=== PATIENT | female | born 1940 | race Caucasian/White ===

== ENCOUNTER 2017-03-23 14:54 | Inpatient (IN) | payer OTHER ==
[~2017-03-23] VITALS: Ht 152.4 cm; Wt 35.9 kg
[~2017-03-23 14:54] MED LIST: ALBUAER19 INH; AMT10 PO; AMT25 PO; ASCO500T16 PO; BACL20TA PO; CALC-20 PO; CHOLCAP5 PO; CYAN10005 PO; DENO60SO SQ; DOCU100C PO; FERR325T5 PO; FLUT0.15 NAE; MELO7.5T7 PO; MULT-506 PO; OXYC-57 PO; PHN/100 PO; PRED-301 PO; RANI150T2 PO; SENN8.6T94 PO; SIMV-151 PO; SPRIN/30 INH; SULF500T36 PO; [UNRECOGNIZED DRUG - CODE] PO; [UNRECOGNIZED DRUG - CODE] TOP; [UNRECOGNIZED DRUG - OTHER] OPB
--- NOTE | 2017-03-23 15:47 | DIAGNOSTIC IMAGING REPORT ---
SINGLE VIEW CHEST CLINICAL HISTORY: Weakness. FINDINGS: An AP, portable, upright chest radiograph is compared to study dated 07/29/2016. The examination is degraded by portable technique and patient rotation. The heart is top normal for projection. There is atherosclerotic calcification of the thoracic aorta. The pulmonary vasculature is noncongested. There is atherosclerotic calcification of the thoracic aorta. Enlargement of the central pulmonary arteries suggests pulmonary artery hypertension. Advanced emphysema and chronic interstitial thickening is similar to previous. There is bibasilar scarring versus atelectasis. No airspace consolidation is identified typical for pneumonia. There is no large pleural effusion or pneumothorax. There is a 1.5 cm nodular density suggested just above the left hemidiaphragm. The skeletal structures are osteopenic. Mild degenerative change is seen throughout the thoracic spine. Arthritic change is also noted in the shoulders. IMPRESSION: 1. Advanced emphysema. 2. No airspace consolidation or pleural effusion is seen. 3. A 1.5 cm nodular density is suggested just above the left hemidiaphragm. Correlation with a chest CT is recommended to exclude underlying neoplasm. Electronically signed by: Zeb Noble M.D. 03/23/2017 3:45 PM Dictated Date/Time: 03/23/2017 3:37 PM
[2017-03-23 15:50] LABS: URINE APPEARANCE CLEAR (CLEAR); URINE BILIRUBIN NEG (NEG); URINE COLOR YELLOW; URINE NITRITE NEG (NEG); URINE PH 8.5 (4.5-7.5); UROBILINOGEN NEG (NEG)
[2017-03-23 15:56] LABS: MANUAL MICROSCOPIC REQUIRED? NO; REVIEW REQ? NO
[2017-03-23 15:58] LABS: CHLORIDE 95 mmol/L (98-107); POTASSIUM 3.3 mmol/L (3.5-5.1); SODIUM 134 mmol/L (136-145)
[2017-03-23 16:04] LABS: ALT/SGPT 14 U/L (12-78); AST/SGOT 24 U/L (15-37); BLOOD UREA NITROGEN 11 mg/dl (7-18); CALCIUM 8.4 mg/dl (8.5-10.1); CARBON DIOXIDE 32 mmol/L (21-32); CREATININE 0.73 mg/dl (0.60-1.20); GLUCOSE 97 mg/dl (70-99)
[2017-03-23 16:10] LABS: BENZODIAZEPINE, URINE NEG (NEG); COCAINE,URINE NEG (NEG); PHENCYCLIDINE, URINE NEG (NEG)
[2017-03-23 16:13] LABS: ALKALINE PHOSPHATASE 114 U/L (45-117)
[2017-03-23 16:15] LABS: BASO % 0.2 %; BASO ABS # 0.01 K/uL (0-0.2); COMPLETE YES; EOS % 0.3 %; HEMATOCRIT 25.4 % (37-47); IG% 0.3 %; LYMPH % 14.3 %; LYMPH ABS # 0.88 K/uL (1.2-3.4); MEAN CELL VOLUME 107.2 fL (80-100); MEAN CORPUSCULAR HGB CONC 35.4 g/dl (32-36); MEAN PLATELET VOLUME 8.1 fL (7.4-10.4); MONO % 8.4 %; NEUT % 76.5 %; PLATELET COUNT 124 K/uL (130-400); RED BLOOD COUNT 2.37 M/uL (4.2-5.4); WHITE BLOOD COUNT 6.17 K/uL (4.8-10.8)
[2017-03-23] MEDS ORDERED: VNTHFA/IN INH (16:21)
--- NOTE | 2017-03-23 17:09 | DIAGNOSTIC IMAGING REPORT ---
HEAD CT NONCONTRAST CT DOSE: HISTORY: Mental status change CHI from fall, AMS TECHNIQUE: Multiaxial CT images of the head were performed without the use of intravenous contrast. Comparison: 05/27/2013 Findings: The paranasal sinuses and mastoid air cells are clear. The calvarium and skull base are intact. The ventricles and sulci are within normal limits. There is no mass, hematoma, midline shift, or acute infarct. Impression: No acute intracranial abnormality. Electronically signed by: Dat Drew M.D. 03/23/2017 5:07 PM Dictated Date/Time: 03/23/2017 5:07 PM
--- NOTE | 2017-03-23 17:21 | DIAGNOSTIC IMAGING REPORT ---
CHEST CT WITHOUT CONTRAST CT DOSE: 1455.07 mGy.cm HISTORY: ABNORMAL CXR TECHNIQUE: Multiaxial CT images of the chest were performed without contrast. COMPARISON: Abdomen and pelvis CT 01/16/2016. Chest CT 03/23/2017. FINDINGS: The are secretions resulting in opacification of the right lower lobe bronchi. There patchy airspace opacities and interstitial thickening seen at the base of the right lower lobe. There is also groundglass density seen within the base of the left lower lobe which may be due to mild dependent change. Moderate emphysema. No pneumothorax. Respiratory motion artifact. No definite nodules seen within the base of the left lower lobe to correspond to the chest x-ray abnormality. No acute fractures within the visualized osseous structures. No pleural or pericardial effusions. The heart is normal in size. Mildly enlarged subcarinal and right peritracheal lymph nodes. Dominant peritracheal lymph node measures 12 mm in short axis diameter. IMPRESSION: 1. There are secretions resulting in opacification of the right lower lobe bronchi with patchy airspace opacities and interstitial thickening at the base of the right lower lobe. This likely represents a pneumonia, possibly secondary to aspiration. Follow-up is recommended to ensure resolution. In addition, bronchoscopy could be performed for further evaluation. These findings can also be seen in the setting of an obstructing mass. However, this is considered less likely. 2. Mild mediastinal lymphadenopathy which may be reactive. 3. Emphysema. 4. No nodules identified within the base of the left lung to correspond to the chest x-ray abnormality. Electronically signed by: Fadi Shell M.D. 03/23/2017 5:20 PM Dictated Date/Time: 03/23/2017 5:08 PM
--- NOTE | 2017-03-23 17:25 | DIAGNOSTIC IMAGING REPORT ---
CERVICAL SPINE CT CT DOSE: HISTORY: NECK PAIN S/P FALL TECHNIQUE: Multiaxial CT images of the cervical spine were performed and reformatted in the sagittal and coronal plane without the use of contrast. COMPARISON: None. FINDINGS: No fractures. There is 2 mm of anterolisthesis of C3 on C4. This is likely due to long-standing degenerative change. Moderate to severe disc space narrowing at C5-C6 and C6-C7. Prevertebral soft tissues and the C1-C2 interval are intact. No pneumothorax. IMPRESSION: No fractures within the cervical spine. Electronically signed by: Fadi Shell M.D. 03/23/2017 5:24 PM Dictated Date/Time: 03/23/2017 5:22 PM
--- NOTE | 2017-03-23 17:57 | DIAGNOSTIC IMAGING REPORT ---
CHEST 1 VW FRONT-NOT PORTABLE HISTORY: LAT VIEW PLEASE COMPARISON: Chest CT 03/23/2017. Chest x-ray 03/23/2017. FINDINGS: Single lateral view of the chest demonstrates patchy density at the right lung base with mild interstitial thickening. No pleural effusions. Mild superior endplate compression deformities at L1 and L2 are demonstrated to be old compared to a 2016 CT. IMPRESSION: Single lateral view demonstrates patchy density at the right lung base with interstitial thickening. This corresponds to the chest CT abnormality. This favors a pneumonia. Follow-up is recommended to ensure resolution. Old mild superior endplate compression deformity at L1 and L2. Electronically signed by: Fadi Shell M.D. 03/23/2017 5:55 PM Dictated Date/Time: 03/23/2017 5:52 PM
--- NOTE | 2017-03-23 18:03 | DIAGNOSTIC IMAGING REPORT ---
LUMBAR SPINE 5 VIEWS HISTORY: BACK PAIN S/P FALL COMPARISON: Abdomen and pelvis CT 01/16/2016. FINDINGS: Mild dextroscoliosis. Old mild superior endplate compression deformity at L1. There is also mild chronic compression at L3, L4 and L5. Severe degenerative disc disease seen at L2-L3, L3-L4, L4-L5. Large amount well-formed stool seen within the colon. The sacrum appears intact.. No subluxation. IMPRESSION: Old mild compression deformities and degenerative changes as described above. No acute fracture or subluxation within the lumbar spine. Electronically signed by: Fadi Shell M.D. 03/23/2017 6:01 PM Dictated Date/Time: 03/23/2017 5:58 PM
[2017-03-23] MEDS ORDERED: MoRPHine SULFATE 4 MG/ML 1 ML CARP\\VIAL IV STA (18:06)
[2017-03-23] MEDS ORDERED: AZITHROMYCIN IV 500 MG in DEXTROSE 5% 250ML 250 ML IV ONE (18:15)
[2017-03-23] MEDS ORDERED: AMPICILLIN/SULBACTAM SOD INJ 3,000 MG in SODIUM CHLORIDE 0.9% 100ML 100 ML IV ONE (18:15)
--- NOTE | 2017-03-23 18:19 | EMERGENCY ROOM VISIT NOTE ---
History First contact with patient: 15:02 Chief Complaint: FALL Stated Complaint: FALL, HEADACHE, DIZZY, BUMP ON HEAD History of Present Illness The patient is a 76 year old female who presents to the Emergency Room for evaluation after suffering a fall early this morning. The patient reports that she had gone to the bathroom, and when she got up from the toilet, lost her balance and fell into her hamper. The patient does remember crawling back to bed. She lives alone. The [id number] who presents with the patient reports that she stopped by her house approximately 2 hours ago while she was on her way to the pharmacy. She wanted to stop to see if she needed anything from the drugstore. She reported that she did not seem like herself, and acted like she was intoxicated. She also noticed a hematoma on her forehead. She reports that the patient has not been feeling well for the past several days, stating that she was "catching a cold". Upon asking the patient of her most recent symptoms, she reports weakness, cough, shortness of breath and weakness. The patient does have a history of seizures, but has not had a seizure in quite a while. She is on Dilantin. He does have a history of anemia. She does not drink alcohol. The [id number] reports that she has a bottle of beer in the fridge that has been there since last year. The patient denies any other illicit drug use. She reports that her son comes to the house every evening to roll cigarettes for her. The patient has noticed some mild chest tightness as well. She denies history of heart disease. She does have a history of high cholesterol. She also complains of neck and lower back pain. She has history of chronic back pain secondary to rheumatoid arthritis. She currently rates her discomfort a 6 out of 10 on my exam. Review of Systems HEENT: Denies recent congestion, runny nose or sore throat. PULMONARY: Denies sputum production or hemoptysis. She does report a cough and shortness of breath. CARDIOVASCULAR: Reports chest tightness, but denies palpitations, dyspnea on exertion, orthopnea or peripheral edema. GASTROINTESTINAL: Denies diarrhea, constipation, nausea, vomiting, or abdominal pain. GENITOURINARY: Denies dysuria, frequency, urgency or nocturia. NEUROLOGIC: Denies history of epilepsy, CVA, TIA or chronic headaches. MUSCULOSKELETAL: History of chronic neck and back pain secondary to osteoarthritis. Patient also has a history of osteoporosis. SKIN: Denies rashes or lesions. PSYCHIATRIC: Denies history of depression or mental illness. ENDOCRINE: Denies history of diabetes or thyroid disorders. Past Medical/Surgical History Medical Problems: (1) Anemia of chronic disorder (2) Arthritis (3) Bullous keratopathy (4) Chronic obstructive lung disease (5) Claudication (6) Epilepsy (7) Hypercholesterolemia (8) Osteoporotic vertebral collapse (9) Restless leg syndrome (10) Rheumatoid arthritis (11) Seizure disorder (12) Status post repair hip fracture (13) Tobacco user Surgical Problems: (1) Status post appendectomy (2) Status post cataract extraction (3) Status post exploratory laparotomy (4) Status post hysterectomy (5) Status post ovarian cystectomy (6) Status post tonsillectomy (7) Status post tubal ligation Family History FH: cancer FH: diabetes mellitus Social History Smoking Status: Current Every Day Smoker Alcohol Use: none Drug Use: none Marital Status: Housing Status: lives alone Occupation Status: retired Current/Historical Medications Scheduled Albuterol Hfa (Ventolin Hfa), 2-4 PUFFS INH Q6H Amitriptyline HCl (Amitriptyline HCl), 35 MG PO HS Ascorbic Acid (Ascorbic Acid), 500 MG PO DAILY Baclofen (Lioresal), 20 MG PO BID Calcium Carbonate-Vitamin D (Calcium 600 + D), 1 TABS PO DAILY Cholecalciferol (Vitamin D3), 5,000 INTER.UNIT PO DAILY Cyanocobalamin (Vitamin B-12), 1,000 MCG PO DAILY Denosumab (Prolia), 60 MG SQ Q6 MONTHS Docusate Sodium (Stool Softener), 100 MG PO BID Ferrous Sulfate (Ferrous Sulfate), 325 MG PO QAM Fluticasone Propionate (Nasal) (Flonase Allergy Relief), 1 SPRAY FRANCK DAILY Meloxicam (Mobic), 7.5 MG PO DAILY Multivitamin (Multivitamin), 1 TAB PO DAILY Olopatadine Hydrochloride (Patanol), 1 DROP OP DAILY Phenytoin Sodium (Dilantin), 100 MG PO BID Prednisone (Prednisone), 5 MG PO HS Ranitidine HCl (Ranitidine HCl), 150 MG PO HS Ropinirole Hydrochloride (Requip), 0.25 MG PO HS Sennosides (Sennosides), 8.6 MG PO DAILY Simvastatin (Simvastatin), 20 MG PO HS Sulfasalazine (Azulfidine), 500 MG PO BID Tiotropium [place] (Spiriva Handihaler), 1 CAP INH QAM Scheduled PRN Menthol (Topical Analgesic) (Icy Hot Back Patch), 1 APPLN TOP DAILY PRN for Back Aches Oxycodone/Acetaminophen 5MG/325MG (Percocet 5MG/325MG), 1 TABLET PO Q4H PRN for Pain Allergies Coded Allergies: Dust (Verified Allergy, Mild, ITCHY EYES,RUNNY NOSE, 03/23/17) POLLEN (Verified Allergy, Mild, SEASONAL-ITCHY EYES,RUNNY NOSE, 03/23/17) Physical Exam Vital Signs Date Time Temp Pulse Resp B/P Pulse Ox O2 Delivery O2 Flow Rate FiO2 03/23/17 17:12 65 14 171/56 95 Room Air 03/23/17 15:27 93 Room Air 03/23/17 15:27 154/63 149/77 128/82 03/23/17 15:22 66 03/23/17 15:12 36.6 70 18 151/79 93 Room Air Physical Exam CONSTITUTIONAL: Cachectic appearing female, alert and oriented X 3 with positive affect. GCS 15. HEENT: Examination shows a frontal forehead hematoma without laceration. Pupils equal, round and reactive. No epistaxis, hemotympanum, raccoon's eyes or Valladares sign. NECK: She has mild discomfort with active range of motion of the neck. She has mild central tenderness to palpation. No paraspinous muscle spasm appreciated. RESPIRATORY: Clear to auscultation bilaterally with no wheezing, crackles, rhonchi or stridor. CARDIOVASCULAR: Regular rate and rhythm with no murmurs, rubs or gallops. GASTROINTESTINAL: Bowel sounds present in all quadrants. Soft and nontender to palpation. MUSCULOSKELETAL: Full range of motion of all joints without discomfort. INTEGUMENTARY: No rash or other significant dermatologic conditions noted. NEUROLOGIC: The patient has ataxia when ambulated to the bathroom. Patient also has difficulty with finger to nose test, and has a mild pronator drift. Medical Decision & Procedures ER Provider Diagnostic Interpretation: My interpretation of an ECG shows a sinus rhythm of [address] elevation or other conduction abnormalities. Two-view chest x-ray does not show any consolidations or pneumothorax. Emphysematous changes and a possible left lower lobe nodule is appreciated. Radiologist report is as follows: SINGLE VIEW CHEST CLINICAL HISTORY: Weakness. FINDINGS: An AP, portable, upright chest radiograph is compared to study dated 07/29/2016. The examination is degraded by portable technique and patient rotation. The heart is top normal for projection. There is atherosclerotic calcification of the thoracic aorta. The pulmonary vasculature is noncongested. There is atherosclerotic calcification of the thoracic aorta. Enlargement of the central pulmonary arteries suggests pulmonary artery hypertension. Advanced emphysema and chronic interstitial thickening is similar to previous. There is bibasilar scarring versus atelectasis. No airspace consolidation is identified typical for pneumonia. There is no large pleural effusion or pneumothorax. There is a 1.5 cm nodular density suggested just above the left hemidiaphragm. The skeletal structures are osteopenic. Mild degenerative change is seen throughout the thoracic spine. Arthritic change is also noted in the shoulders. IMPRESSION: 1. Advanced emphysema. 2. No airspace consolidation or pleural effusion is seen. 3. A 1.5 cm nodular density is suggested just above the left hemidiaphragm. Correlation with a chest CT is recommended to exclude underlying neoplasm. Lumbar spine x-rays shows degenerative changes without any evidence for acute compression fracture. Radiologist report is as follows: LUMBAR SPINE 5 VIEWS HISTORY: BACK PAIN S/P FALL COMPARISON: Abdomen and pelvis CT 01/16/2016. FINDINGS: Mild dextroscoliosis. Old mild superior endplate compression deformity at L1. There is also mild chronic compression at L3, L4 and L5. Severe degenerative disc disease seen at L2-L3, L3-L4, L4-L5. Large amount well-formed stool seen within the colon. The sacrum appears intact.. No subluxation. IMPRESSION: Old mild compression deformities and degenerative changes as described above. No acute fracture or subluxation within the lumbar spine. Cervical spine CT shows degenerative changes without evidence for fracture. Radiologist report is as follows: CERVICAL SPINE CT CT DOSE: HISTORY: NECK PAIN S/P FALL TECHNIQUE: Multiaxial CT images of the cervical spine were performed and reformatted in the sagittal and coronal plane without the use of contrast. COMPARISON: None. FINDINGS: No fractures. There is 2 mm of anterolisthesis of C3 on C4. This is likely due to long-standing degenerative change. Moderate to severe disc space narrowing at C5-C6 and C6-C7. Prevertebral soft tissues and the C1-C2 interval are intact. No pneumothorax. IMPRESSION: No fractures within the cervical spine. Head CT does not show any intracranial bleed, midline shift or mass effect. Radiologist report is as follows: HEAD CT NONCONTRAST CT DOSE: HISTORY: Mental status change CHI from fall, AMS TECHNIQUE: Multiaxial CT images of the head were performed without the use of intravenous contrast. Comparison: 05/27/2013 Findings: The paranasal sinuses and mastoid air cells are clear. The calvarium and skull base are intact. The ventricles and sulci are within normal limits. There is no mass, hematoma, midline shift, or acute infarct. Impression: No acute intracranial abnormality. Chest CT shows a right lower lobe pneumonia. The left lower lung mass is not seen on CT. Radiologist report is as follows: CHEST CT WITHOUT CONTRAST CT DOSE: 1455.07 mGy.cm HISTORY: ABNORMAL CXR TECHNIQUE: Multiaxial CT images of the chest were performed without contrast. COMPARISON: Abdomen and pelvis CT 01/16/2016. Chest CT 03/23/2017. FINDINGS: The are secretions resulting in opacification of the right lower lobe bronchi. There patchy airspace opacities and interstitial thickening seen at the base of the right lower lobe. There is also groundglass density seen within the base of the left lower lobe which may be due to mild dependent change. Moderate emphysema. No pneumothorax. Respiratory motion artifact. No definite nodules seen within the base of the left lower lobe to correspond to the chest x-ray abnormality. No acute fractures within the visualized osseous structures. No pleural or pericardial effusions. The heart is normal in size. Mildly enlarged subcarinal and right peritracheal lymph nodes. Dominant peritracheal lymph node measures 12 mm in short axis diameter. IMPRESSION: 1. There are secretions resulting in opacification of the right lower lobe bronchi with patchy airspace opacities and interstitial thickening at the base of the right lower lobe. This likely represents a pneumonia, possibly secondary to aspiration. Follow-up is recommended to ensure resolution. In addition, bronchoscopy could be performed for further evaluation. These findings can also be seen in the setting of an obstructing mass. However, this is considered less likely. 2. Mild mediastinal lymphadenopathy which may be reactive. 3. Emphysema. 4. No nodules identified within the base of the left lung to correspond to the chest x-ray abnormality. Laboratory Results 03/23/17 16:05 Red Blood Count 2.37, Mean Corpuscular Volume 107.2, Mean Corpuscular Hemoglobin 38.0, Mean Corpuscular Hemoglobin Concent 35.4, Mean Platelet Volume 8.1, Neutrophils (%) (Auto) 76.5, Lymphocytes (%) (Auto) 14.3, Monocytes (%) ( Auto) 8.4, Eosinophils (%) (Auto) 0.3, Basophils (%) (Auto) 0.2, Neutrophils # ( Auto) 4.72, Lymphocytes # (Auto) 0.88, Monocytes # (Auto) 0.52, Eosinophils # ( Auto) 0.02, Basophils # (Auto) 0.01 03/23/17 15:25 Test 03/23/17 15:25 03/23/17 16:05 Urine Color YELLOW Urine Appearance CLEAR (CLEAR) Urine pH 8.5 (4.5-7.5) Urine Specific [place] 1.010 (1.000-1.030) Urine Protein NEG (NEG) Urine Glucose (UA) NEG (NEG) Urine Ketones NEG (NEG) Urine Occult Blood NEG (NEG) Urine Nitrite NEG (NEG) Urine Bilirubin NEG (NEG) Urine Urobilinogen NEG (NEG) Urine Leukocyte Esterase NEG (NEG) Anion Gap 7.0 mmol/L (3-11) Est Creatinine Clear Calc Drug Dose 43.2 ml/min Estimated GFR () 92.1 Estimated GFR (Non- 79.4 BUN/Creatinine Ratio 15.0 (10-20) Calcium Level 8.4 mg/dl (8.5-10.1) Phosphorus Level 3.0 mg/dl (2.5-4.9) Magnesium Level 2.0 mg/dl (1.8-2.4) Total Bilirubin 0.5 mg/dl (0.2-1) Direct Bilirubin 0.1 mg/dl (0-0.2) Aspartate Amino Transf (AST/SGOT) 24 U/L (15-37) Alanine Aminotransferase (ALT/SGPT) 14 U/L (12-78) Alkaline Phosphatase 114 U/L (45-117) Total Creatine Kinase 178 U/L (26-192) Troponin I < 0.015 ng/ml (0-0.045) Pro-B-Type Natriuretic Peptide 577 pg/ml (0-1800) Total Protein 7.4 gm/dl (6.4-8.2) Albumin 4.0 gm/dl (3.4-5.0) Thyroid Stimulating Hormone (TSH) 2.400 uIu/ml (0.300-4.500) Urine Opiates Screen NEG (NEG) Urine Methadone, Qualitative NEG (NEG) Urine Barbiturates NEG (NEG) Phenytoin (Dilantin) Level 16.3 mcg/mL (10-20) Urine Phencyclidine (PCP) Level NEG (NEG) Ur Amphetamine/Methamphetamine NEG (NEG) MDMA (Ecstasy) Screen NEG (NEG) Urine Benzodiazepines Screen NEG (NEG) Urine Cocaine Metabolite NEG (NEG) Urine Marijuana (THC) NEG (NEG) White Blood Count 6.17 K/uL (4.8-10.8) Red Blood Count 2.37 M/uL (4.2-5.4) Hemoglobin 9.0 g/dL (12.0-16.0) Hematocrit 25.4 % (37-47) Mean Corpuscular Volume 107.2 fL (80-100) Mean Corpuscular Hemoglobin 38.0 pg (25-34) Mean Corpuscular Hemoglobin Concent 35.4 g/dl (32-36) Platelet Count 124 K/uL (130-400) Mean Platelet Volume 8.1 fL (7.4-10.4) Neutrophils (%) (Auto) 76.5 % Lymphocytes (%) (Auto) 14.3 % Monocytes (%) (Auto) 8.4 % Eosinophils (%) (Auto) 0.3 % Basophils (%) (Auto) 0.2 % Neutrophils # (Auto) 4.72 K/uL (1.4-6.5) Lymphocytes # (Auto) 0.88 K/uL (1.2-3.4) Monocytes # (Auto) 0.52 K/uL (0.11-0.59) Eosinophils # (Auto) 0.02 K/uL (0-0.5) Basophils # (Auto) 0.01 K/uL (0-0.2) RDW Standard Deviation 54.5 fL (36.4-46.3) RDW Coefficient of Variation 14.1 % (11.5-14.5) Immature Granulocyte % (Auto) 0.3 % Immature Granulocyte # (Auto) 0.02 K/uL (0.00-0.02) D-Dimer 3620 ug/L FEU (0-500) The above labs were reviewed. Hemoglobin is 9. White count is normal. The patient is slightly thrombocytopenia. Troponin, urinalysis and urine drug screen are normal. D-dimer is elevated. ED Course Patient history and physical exam were performed. Nurse's notes were reviewed. Vital signs were reviewed, showing a blood pressure 151/79. The patient is afebrile. O2 saturation is 93% on room air, and pulse rate is normal. The patient does have an ataxic gait to the bathroom, and she reports "I feel like I 'm drunk". IV access was established and labs were drawn. The patient was administered a normal saline 500 mL bolus. Review of labs shows a hemoglobin of 9. The patient has no leukocytosis. Initial ECG was normal. A two-view chest x-ray did not show any consolidations or pneumothorax. Radiologist was concerned about a left lower lobe nodule, and recommended CT scan for correlation. Emphysematous changes and a left lower lobe nodule is noted on chest x-ray. Noncontrast CT of the chest shows a right basilar infiltrate and other findings concerning for possible aspiration pneumonia. Noncontrast CT of the head and cervical spine, as well as x-ray of the lumbar spine, were all normal except for degenerative changes. Upon reevaluation, the patient was requesting something for her back pain, and was administered morphine 4 mg IVP. The patient does take oxycodone at home for her pain. I did discuss her findings of possible aspiration pneumonia. I am also concerned regarding her poor gait and increased risk for falls at home since she lives alone. I did suggest hospitals evaluation, and the patient was in agreement. The case was further discussed with Dr. Royal, ED attending physician, who agrees with workup and plan of care. The case was then discussed with ELSI Thomson with the [facility] hospitalist group. Please see their dictation for further treatment and final disposition. The patient was administered IV Unasyn and Zithromax for her pneumonia. I also inadvertently forgot to order IV saline,, and ordered a normal saline 500 mL bolus. Impression Primary Impression: Right lower lobe pneumonia Additional Impressions: Concussion Ataxia Anemia Departure Information Referrals Doni Lewis M.D. (PCP) Patient Instructions My [facility] Problem Qualifiers Primary Impression: Right lower lobe pneumonia Pneumonia type: aspiration pneumonia Aspiration pneumonia type: unspecified Qualified Codes: J69.0 - Pneumonitis due to inhalation of food and vomit Additional Impressions: Concussion Encounter type: initial encounter Loss of consciousness presence/duration: without LOC Qualified Codes: S06.0X0A - Concussion without loss of consciousness, initial encounter Anemia Anemia type: iron deficiency Iron deficiency anemia type: unspecified iron deficiency Qualified Codes: D50.9 - Iron deficiency anemia, unspecified
[2017-03-23] MEDS ORDERED: SODIUM CHLORIDE 0.9% 500ML 500 ML IV STA (18:20)
[2017-03-23] MEDS ORDERED: ACETAMINOPHEN 325 MG TAB PO PRN (19:00)
[2017-03-23] MEDS ORDERED: SODIUM CHLORIDE 0.9% 1000ML 1,000 ML IV SCH (19:00)
[2017-03-23 19:14] VITALS: Ht 152.4 cm; Wt 35.9 kg
[2017-03-23] MEDS ORDERED: ALBUT/IPRATROP 3MG/0.5MG NEB 3 ML VIAL INH PRN (19:15)
[2017-03-23] MEDS ORDERED: DLN100 PO (19:31)
[2017-03-23] MEDS ORDERED: BACLOFEN TAB 20 MG TAB PO PRN (19:45)
--- NOTE | 2017-03-23 20:30 | DIAGNOSTIC IMAGING REPORT ---
BILATERAL LOWER EXTREMITY VENOUS DOPPLER HISTORY: Lower extremity edema COMPARISON STUDY: Venous Doppler 05/27/2013. FINDINGS: There is normal compressibility, flow, and augmentation within the bilateral lower extremity deep venous systems. IMPRESSION: No DVT within the right or left lower extremity. Electronically signed by: Fadi Shell M.D. 03/23/2017 8:29 PM Dictated Date/Time: 03/23/2017 8:29 PM
[2017-03-23] MEDS: ROPINIROLE HCL 0.25 MG TAB PO SCH (21:00)
[2017-03-23] MEDS: SIMVASTATIN 20 MG TAB PO SCH (21:00)
[2017-03-23] MEDS: AMITRIPTYLINE HCL 10 MG TAB PO SCH (21:00)
[2017-03-23] MEDS ORDERED: ENOXAPARIN 30 MG/0.3 ML SYR SQ SCH (21:00)
[2017-03-23] MEDS: RANITIDINE HCL 150 MG TAB PO SCH (21:00)
[2017-03-23] MEDS: DOCUSATE SODIUM 100 MG CAP PO SCH (21:00)
[2017-03-23] MEDS ORDERED: POTASSIUM CHLORIDE 20 MEQ TABCR PO ONE (21:00)
[2017-03-23] MEDS: ALBUT/IPRATROP 3MG/0.5MG NEB 3 ML VIAL INH SCH (21:00)
[2017-03-23] MEDS: PHENYTOIN SODIUM ER 100 MG CAP PO SCH ×2 (21:00→23:30)
--- NOTE | 2017-03-23 21:02 | History and Physical ---
History & Physical Date & Time of Service: March 23, 2017 at 20:19 Chief Complaint: Fall Primary Care Physician: Doni Lewis M.D. History of Present Illness 76 year old female who presents to the ER after a fall. Patient reports that around 0100 she had gone to the bathroom. When she tried to get up from the toilet, she reports she felt lightheaded and dizzy and fell forward hitting her head off of the clothes hamper. She reports she then put herself onto the ground. She denies loosing coconsciousness. She said she felt weak and shaky all over. She was able to grab the sink and stand up and go back to bed. Daughter in law is present at the bedside and reports she found her on the couch this afternoon. She reports she always sleeps on the couch. She reports she was a little hard to awaken. She was then brought to the ER for further evaluation. Patient reports she hasn't been feeling well for the past few days. She has a chronic cough which is unchanged. She reports she feels short of breath "when she isn't feeling well". She was admitted to the hospital last year and was found to have aspiration. She reports she has not been following aspirations precautions. She denies chest pain. No abdominal pain, nausea, vomiting, or diarrhea. She denies fever and chills. No urinary symptoms. In the ER, CT chest is showing RLL pneumonia, likely aspiration. Patient was treated with IVF, IV azithromycin, IV Unasyn, and IV Morphine. Past Medical/Surgical History Medical Problems: (1) Anemia of chronic disorder Status: Chronic (2) Arthritis Status: Chronic (3) Bullous keratopathy Status: Chronic (4) Chronic obstructive lung disease Status: Chronic (5) Claudication Permanent Comment: bilateral Status: Chronic (6) Epilepsy Status: Chronic (7) Hypercholesterolemia Status: Chronic (8) Osteoporotic vertebral collapse Status: Chronic (9) Restless leg syndrome Status: Chronic (10) Rheumatoid arthritis Status: Chronic (11) Seizure disorder Status: Chronic (12) Status post repair hip fracture Status: Chronic (13) Tobacco user Status: Chronic Surgical Problems: (1) Status post appendectomy Status: Chronic (2) Status post cataract extraction Status: Chronic (3) Status post exploratory laparotomy Permanent Comment: x3 for adhesions Status: Chronic (4) Status post hysterectomy Status: Chronic (5) Status post ovarian cystectomy Status: Chronic (6) Status post tonsillectomy Status: Chronic (7) Status post tubal ligation Status: Chronic Family History Diabetes mellitus BROTHER SISTER Social History Smoking Status: Current Every Day Smoker Alcohol Use: none Housing status: lives alone Immunizations History of Influenza Vaccine: Yes Influenza Vaccine Date: Jul 24, 2016 History of Tetanus Vaccine?: Yes Tetanus Immunization Date: Mar 04, 2008 History of Pneumococcal: Yes Pneumococcal Date: Nov 15, 2007 Multi-Drug Resistant Organisms History of MDRO: No Allergies Coded Allergies: Dust (Verified Allergy, Mild, ITCHY EYES,RUNNY NOSE, 03/23/17) POLLEN (Verified Allergy, Mild, SEASONAL-ITCHY EYES,RUNNY NOSE, 03/23/17) Home Medications Scheduled Amitriptyline HCl (Amitriptyline HCl), 35 MG PO HS Ascorbic Acid (Ascorbic Acid), 500 MG PO DAILY Calcium Carbonate-Vitamin D (Calcium 600 + D), 1 TABS PO DAILY Cholecalciferol (Vitamin D3), 5,000 INTER.UNIT PO DAILY Cyanocobalamin (Vitamin B-12), 1,000 MCG PO DAILY Denosumab (Prolia), 60 MG SQ Q6 MONTHS Docusate Sodium (Stool Softener), 100 MG PO BID Ferrous Sulfate (Ferrous Sulfate), 325 MG PO QAM Fluticasone Propionate (Nasal) (Flonase Allergy Relief), 1 SPRAY FRANCK DAILY Meloxicam (Mobic), 7.5 MG PO DAILY Multivitamin (Multivitamin), 1 TAB PO DAILY Olopatadine Hydrochloride (Patanol), 1 DROP OP DAILY Phenytoin Sodium (Dilantin), 100 MG PO HS Phenytoin Sodium (Dilantin), 200 MG PO DAILY Prednisone (Prednisone), 5 MG PO HS Ranitidine HCl (Ranitidine HCl), 150 MG PO HS Ropinirole Hydrochloride (Requip), 0.25 MG PO HS Sennosides (Sennosides), 8.6 MG PO DAILY Simvastatin (Simvastatin), 20 MG PO HS Sulfasalazine (Azulfidine), 500 MG PO BID Tiotropium [place] (Spiriva Handihaler), 1 CAP INH QAM Scheduled PRN Albuterol Hfa (Ventolin Hfa), 2-4 PUFFS INH Q6H PRN for SOB/Wheezing Baclofen (Lioresal), 20 MG PO BID PRN for Muscle Spasms Menthol (Topical Analgesic) (Icy Hot Back Patch), 1 APPLN TOP DAILY PRN for Back Aches Oxycodone/Acetaminophen 5MG/325MG (Percocet 5MG/325MG), 1 TABLET PO Q4H PRN for Pain Review of Systems ROS per HPI, all other systems reviewed and negative Physical Exam Vital Signs Date Time Temp Pulse Resp B/P Pulse Ox O2 Delivery O2 Flow Rate FiO2 03/23/17 19:14 Room Air 03/23/17 18:58 65 22 163/68 92 Room Air 03/23/17 18:20 67 18 169/71 97 Room Air 03/23/17 17:12 65 14 171/56 95 Room Air 03/23/17 15:27 93 Room Air 03/23/17 15:27 154/63 149/77 128/82 03/23/17 15:22 66 03/23/17 15:12 36.6 70 18 151/79 93 Room Air General Appearance: + pertinent finding (restless in bed however in no acute distress) Head: normocephalic Eyes: + pertinent finding (right periorbital ecchymosis, right pupil opaque ) ENT: hearing grossly normal Neck: supple, no JVD Respiratory/Chest: no respiratory distress, + rhonchi (scattered throughout all brandin) Cardiovascular: regular rate, rhythm, + pertinent finding (+1 pedal edema) Abdomen/GI: normal bowel sounds, non tender, soft Extremities/Musculoskelatal: normal inspection, no calf tenderness Neurologic/Psych: no motor/sensory deficits, alert, oriented x 3, + pertinent finding (restless, anxious) Skin: normal color, warm/dry Diagnostics Laboratory Results Results Past 24 Hours Test 03/23/17 15:25 03/23/17 16:05 Range/Units Urine Color YELLOW Urine Appearance CLEAR CLEAR Urine pH 8.5 4.5-7.5 Urine Specific [place] 1.010 1.000-1.030 Urine Protein NEG NEG Urine Glucose (UA) NEG NEG Urine Ketones NEG NEG Urine Occult Blood NEG NEG Urine Nitrite NEG NEG Urine Bilirubin NEG NEG Urine Urobilinogen NEG NEG Urine Leukocyte Esterase NEG NEG Sodium Level 134 136-145 mmol/L Potassium Level 3.3 3.5-5.1 mmol/L Chloride Level 95 98-107 mmol/L Carbon Dioxide Level 32 21-32 mmol/L Anion Gap 7.0 3-11 mmol/L Blood Urea Nitrogen 11 7-18 mg/dl Creatinine 0.73 0.60-1.20 mg/dl Est Creatinine Clear Calc Drug Dose 43.2 ml/min Estimated GFR () 92.1 Estimated GFR (Non- 79.4 BUN/Creatinine Ratio 15.0 10-20 Random Glucose 97 70-99 mg/dl Calcium Level 8.4 8.5-10.1 mg/dl Phosphorus Level 3.0 2.5-4.9 mg/dl Magnesium Level 2.0 1.8-2.4 mg/dl Total Bilirubin 0.5 0.2-1 mg/dl Direct Bilirubin 0.1 0-0.2 mg/dl Aspartate Amino Transf (AST/SGOT) 24 15-37 U/L Alanine Aminotransferase (ALT/SGPT) 14 12-78 U/L Alkaline Phosphatase 114 45-117 U/L Total Creatine Kinase 178 26-192 U/L Troponin I < 0.015 0-0.045 ng/ml Pro-B-Type Natriuretic Peptide 577 0-1800 pg/ml Total Protein 7.4 6.4-8.2 gm/dl Albumin 4.0 3.4-5.0 gm/dl Thyroid Stimulating Hormone (TSH) 2.400 0.300-4.500 uIu/ml Urine Opiates Screen NEG NEG Urine Methadone, Qualitative NEG NEG Urine Barbiturates NEG NEG Phenytoin (Dilantin) Level 16.3 10-20 mcg/mL Urine Phencyclidine (PCP) Level NEG NEG Ur Amphetamine/Methamphetamine NEG NEG MDMA (Ecstasy) Screen NEG NEG Urine Benzodiazepines Screen NEG NEG Urine Cocaine Metabolite NEG NEG Urine Marijuana (THC) NEG NEG White Blood Count 6.17 4.8-10.8 K/uL Red Blood Count 2.37 4.2-5.4 M/uL Hemoglobin 9.0 12.0-16.0 g/dL Hematocrit 25.4 37-47 % Mean Corpuscular Volume 107.2 80-100 fL Mean Corpuscular Hemoglobin 38.0 25-34 pg Mean Corpuscular Hemoglobin Concent 35.4 32-36 g/dl Platelet Count 124 130-400 K/uL Mean Platelet Volume 8.1 7.4-10.4 fL Neutrophils (%) (Auto) 76.5 % Lymphocytes (%) (Auto) 14.3 % Monocytes (%) (Auto) 8.4 % Eosinophils (%) (Auto) 0.3 % Basophils (%) (Auto) 0.2 % Neutrophils # (Auto) 4.72 1.4-6.5 K/uL Lymphocytes # (Auto) 0.88 1.2-3.4 K/uL Monocytes # (Auto) 0.52 0.11-0.59 K/uL Eosinophils # (Auto) 0.02 0-0.5 K/uL Basophils # (Auto) 0.01 0-0.2 K/uL RDW Standard Deviation 54.5 36.4-46.3 fL RDW Coefficient of Variation 14.1 11.5-14.5 % Immature Granulocyte % (Auto) 0.3 % Immature Granulocyte # (Auto) 0.02 0.00-0.02 K/uL D-Dimer 3620 0-500 ug/L FEU Diagnostic Radiology CT Head Impression: No acute intracranial abnormality. CXR IMPRESSION: 1. Advanced emphysema. 2. No airspace consolidation or pleural effusion is seen. 3. A 1.5 cm nodular density is suggested just above the left hemidiaphragm. Correlation with a chest CT is recommended to exclude underlying neoplasm. LUMBAR SPINE XR IMPRESSION: Old mild compression deformities and degenerative changes as described above. No acute fracture or subluxation within the lumbar spine. CT C SPINE IMPRESSION: No fractures within the cervical spine. CT CHEST IMPRESSION: 1. There are secretions resulting in opacification of the right lower lobe bronchi with patchy airspace opacities and interstitial thickening at the base of the right lower lobe. This likely represents a pneumonia, possibly secondary to aspiration. Follow-up is recommended to ensure resolution. In addition, bronchoscopy could be performed for further evaluation. These findings can also be seen in the setting of an obstructing mass. However, this is considered less likely. 2. Mild mediastinal lymphadenopathy which may be reactive. 3. Emphysema. 4. No nodules identified within the base of the left lung to correspond to the chest x-ray abnormality. Impression Assessment and Plan PNEUMONIA, LIKELY ASPIRATION - admit to tele - patient presenting after a fall and near syncopal event last night around 0100 in the morning - in the ER, found to have RLL pneumonia - noted immunocompromised state with sulfasalazine and chronic prednisone use - however no signs of sepsis; afebrile, no leukocytosis - hx of aspiration however patient has not been following aspirations precautions - s/p Unasyn and Azithromycin in the ED; will continue with WEAKNESS, FALLS, NEAR SYNCOPE - likely due to acute illness / orthostasis - head CT negative - IVF - check orthostatic BPs POSSIBLE LUNG MASS - noted on CT chest - pulmonary consult placed - lifelong heavy tobacco use ELEVATED D. DIMER - no hypoxia or tachycardia - check BLLE dopplers - unable to obtain CTA due to poor IV access; VQ scan ordered HX EPILEPSY - stable, continue Dilantin ANEMIA - chronic, baseline hgb ~ 10 - noted to be 9.0 - continue to monitor RHEUMATOID ARTHRITIS - holding sulfasalzine due to acute illness - continue chronic prednisone; BP stable, no role for stress dose steroids COPD, ONGOING TOBACCO USE - no wheezing on exam; started on nebs for pneumonia - patient counseled regarding tobacco cessation DVT PROPHYLAXIS - SCDs due to chronic anemia CODE STATUS - Patient is a full code as per my discussion with her. DISPO - In my clinical judgment this beneficiary meets acute admission criteria, established by [facility], that includes being hospitalized through two midnights. - PT/OT, case management consults; potential need for placement Advanced Directives Existing Living Will: No Existing Power of Informatics Manager: No VTE Prophylaxis VTE Risk Assessment Done? Y/N: Yes Risk Level: Moderate Given or contraindicated: SCD's Note ATTENDING ADDENDUM Record reviewed. Patient interviewed and examined. Care coordinated with ELSI Thomson. Please refer to her documentation for patient's history. Briefly, 76 YO female with history of COPD, seizure disorder, and other problems as noted. Fell last night in her bathroom and struck her head. The event was not witnessed. Patient feels that she did not lose consciousness. Daughter checked on her today. She seems to somewhat SOB. Patient denies fever or cough. She admit that she is not compliant with recommendations to thicken liquids to avoid aspiration. EXAM: General- appears to be chronically-ill, no acute distress VS- as noted HEENT- contusion mid forehead; right corneal opacity Neck- slight JVD Lungs- diffuse mild wheezing Heart- RRR, exam limited Abdomen- + BS, soft, nontender Extremities- no pretibial edema or calf tenderness Neuro- alert, somewhat confused, oriented, dystonic movements of mouth and extremities DATA: Hgb 9.0. D-dimer 3620. Na 134, K 3.3, BUN 11, creat 0.73. CPK 178, trop < 0.015. Phenytoin 16. Other lab studies as noted. CXR- emphysema, 1.5 cm nodular density LLL, patch infiltrate right base. X-rays lumbar spine- degen changes, old mild compression fractures CT head- negative. CT cervical spine- neg for fx. CT chest (without contrast)- secretions RLL bronchi + infiltrate RLL, no nodule left base. Venous duplex lower extremities- neg for DVT. EKG performed at 15:17 reviewed and demonstrated NSR at 70 / minute, no acute ST or T-wave abnormalities. ASSESSMENT AND PLAN: NEAR SYNCOPE VS SYNCOPE Possibly due to orthostasis. Consider arrhythmia, PE. ORTHOSTASIS Sys BP fell from 154 supine to 128 standing. IV fluids. Recheck orthostatic VS in a.m. ASPIRATION PNEUMONIA / ABNORMAL CT CT chest consistent with aspiration pneumonia. Patient is more dyspneic than baseline; no fever or leukocytosis. Rx with ampicillin / sulbactam + azithromycin. Aspiration precautions. Thicken liquids (if patient will permit). DIRECTOR OF CARDIOLOGY SERVICE LINE follow-up eval. Will need f/u CT to assure resolution of abnormalities. HYPOKALEMIA Replace. Follow. ELEVATED D-DIMER Pt more SOB than baseline. Also had syncope vs. near syncope. D-dimer in ED elevated at 3620. Could not do CTA due to poor venous access. Venous duplex lower extremities negative for DVT. Check VQ. SEIZURE DISORDER Phenytoin level 16. Doubt that fall was due to seizure, but will order seizure precautions. POSSIBLE NEUROLOGIC DISORDER Patient has orthostasis, fall, dysphagia, possible movement disorder, unusual affect. ? underlying neuro disorder (PSP, etc). PT / OT evals. Consult Neuro. ANEMIA Chronic. VTE PROPHYLAXIS Best not to use anticoagulants due to head injury and risk for ICH. SCD's. Ambulate. Please refer to KEREN Becerril's documentation for discussion of other issues. Jose D Gu MD .
[2017-03-23 21:07] VITALS: BP 150/67; PULSE 62
[2017-03-23 21:30] VITALS: BP 192/66; PULSE 64; TEMP 36.1; O2SAT 90
[2017-03-23 21:59] VITALS: BP 152/67; PULSE 58
[2017-03-23 22:56] VITALS: BP 116/63; PULSE 58; TEMP 35.9; O2SAT 90
--- NOTE | 2017-03-23 22:56 | EMERGENCY ROOM VISIT NOTE ---
ED Visit Note First contact with patient: 15:02 I have personally evaluated and examined this patient. I agree with assessment and plan of Abel Christy PA-C.
[2017-03-23] MEDS ORDERED: NALOXONE HCL 0.4 MG/1 ML VIAL/CARP IV STA (23:09)
[2017-03-23] MEDS ORDERED: NSS + 20MEQ KCL 1000ML 1,000 ML IV ONE (23:15)
[2017-03-24] VITALS (8 sets, daily range): BP systolic 105–156; BP diastolic 54–72; PULSE 58–87; TEMP 36.3–36.7; O2SAT 92–98
[2017-03-24] MEDS ORDERED: OLANZAPINE 2.5 MG TAB PO STA (00:54)
[2017-03-24 01:17] LABS: ARTERIAL BLD GAS O2 SATURATION 95.6 % (90-95); ARTERIAL BLOOD GAS BASE EXCESS 3.7 mEq/L (-9-1.8); ARTERIAL BLOOD GAS HCO3 29 mmol/L (19-24); ARTERIAL BLOOD GAS PO2 92 mm/Hg (80-95); ARTERIAL BLOOD GAS pH 7.41 (7.35-7.45)
[2017-03-24 01:18] LABS: ALLEN TEST POS (POS); O2 ADMINISTRATION 2 LITTERS
[2017-03-24] MEDS: ALBUT/IPRATROP 3MG/0.5MG NEB 3 ML VIAL INH SCH ×4 (02:03→19:14)
[2017-03-24] MEDS: AMPICILLIN/SULBACTAM SOD INJ 3,000 MG in SODIUM CHLORIDE 0.9% 100ML 100 ML IV SCH ×4 (02:10→20:19)
[2017-03-24 06:57] LABS: HEMATOCRIT 27.1 % (37-47); MEAN CELL VOLUME 110.6 fL (80-100); MEAN CORPUSCULAR HEMOGLOBIN 38.4 pg (25-34); MEAN CORPUSCULAR HGB CONC 34.7 g/dl (32-36); MEAN PLATELET VOLUME 8.7 fL (7.4-10.4); PLATELET COUNT 144 K/uL (130-400); RED BLOOD COUNT 2.45 M/uL (4.2-5.4); WHITE BLOOD COUNT 4.56 K/uL (4.8-10.8)
[2017-03-24 07:36] LABS: BUN/CREATININE RATIO 12.3 (10-20); CALCIUM 7.7 mg/dl (8.5-10.1); CREATININE 0.53 mg/dl (0.60-1.20); POTASSIUM 3.8 mmol/L (3.5-5.1)
[2017-03-24] MEDS: PHENYTOIN SODIUM ER 100 MG CAP PO SCH ×2 (08:47→20:38)
[2017-03-24] MEDS: MULTIVITAMIN TAB PO SCH (08:47)
[2017-03-24] MEDS: CALCIUM 600MG + VIT D 400 IU TAB PO SCH (08:47)
[2017-03-24] MEDS: FLUTICASONE PROPIONATE NA SPR 16 GM BTL NAE SCH (08:47)
[2017-03-24] MEDS: MELOXICAM 7.5 MG TAB PO SCH (08:47)
[2017-03-24] MEDS: FERROUS SULFATE 325 MG TAB PO SCH (08:47)
[2017-03-24] MEDS: DOCUSATE SODIUM 100 MG CAP PO SCH ×2 (08:47→20:40)
[2017-03-24] MEDS: CHOLECALCIFEROL 1000 INTER.UNIT TAB PO SCH (08:48)
[2017-03-24] MEDS: ASCORBIC ACID 500 MG TAB PO SCH (08:48)
[2017-03-24] MEDS: CYANOCOBALAMIN 500 MCG TAB (VIT B-12) PO SCH (08:48)
[2017-03-24] MEDS: SENNA 8.6 MG TAB PO SCH (08:48)
[2017-03-24] MEDS ORDERED: AZITHROMYCIN IV 500 MG in DEXTROSE 5% 250ML 250 ML IV SCH (09:00)
--- NOTE | 2017-03-24 09:48 | DIAGNOSTIC IMAGING REPORT ---
Perfusion lung scan LUNG PERFUSION IMAGING CLINICAL HISTORY: shortness of breath TECHNIQUE: Study is performed from the administration of 5.3 mCi technetium 99m MAA. COMPARISON STUDY: None FINDINGS: Slight inhomogeneity of perfusion throughout both hemithoraces. A major perfusion defect is not appreciated. IMPRESSION: Low probability of pulmonary embolus. Electronically signed by: Dat Drew M.D. 03/24/2017 9:47 AM Dictated Date/Time: 03/24/2017 9:46 AM
[2017-03-24] MEDS: ONDANSETRON INJ 2 MG/ML 2 ML VIAL IV PRN (11:39)
--- NOTE | 2017-03-24 13:25 | NEUROLOGY CONSULTATION ---
DATE OF CONSULTATION: 03/24/2017 DATE OF CONSULTATION: 03/24/2017. REASON FOR CONSULTATION: Query movement disorder. HISTORY OF PRESENT ILLNESS: Mrs. Stover is known to me, she is a 76-year-old right-handed female that I have seen in the past for 20 years because of a history of seizure disorder. I have not seen her since 2013 but she indicates that she has not had a seizure in a long time. I do not recall her ever having seizures during the time I took care of her. When I last saw her I described her as having some multifactorial gait dysfunction. On that background, she was admitted to the hospital after a fall. She apparently tried to get up from the toilet, felt lightheaded and fell forward, hitting her head on a clothes hamper. She put herself down on the ground. Denies loss of consciousness. She says she feels weak and shaky all over, although indicates that she is weaker on the right side than the left. As she is I think mildly delirious it is difficult to assess the accuracy of her complaints. [id number] found her on the couch this morning with evidence and she was a little hard to awaken. While she had bruising around the right eye there was not any incontinence or tongue biting. She reports feeling short of breath. She has been losing weight, although the amount is unknown. She was admitted to the hospital last year and found to have aspiration. I reviewed the speech evaluation and it is indicated that the oral stage was mildly impaired, mild retention along the tongue after swallow, the pharyngeal stage was moderately impaired with laryngeal penetration of nectar thick liquid and trace silent aspiration of thins. Laryngeal elevation was partially reduced, epiglottic deflexion incomplete and in the esophageal phase there was mild retention within the upper esophagus. The speech therapist also felt clinically that there was an esophageal component to the patient's dysphasia given that at times clinically she had more difficulty with solids rather than liquids. Apparently she has not been compliant with aspiration precautions. The patient indicates chronic neck pain, no Lhermitte's phenomenon. Indicates that there is some right-sided weakness of unclear duration. Gait dysfunction of unclear duration. Denies any numbness or tingling in the extremities. No abdominal pain, nausea, vomiting, chest pain. PAST MEDICAL HISTORY: Anemia, arthritis, bolus keratopathy, COPD, claudication, seizure disorder on Dilantin, hyperlipidemia, osteoporotic, vertebral collapse, restless legs, rheumatoid arthritis, status post hip fracture, tobacco user, appendectomy, cataract, exploratory laparotomy for adhesions, status post hysterectomy, ovarian cystectomy, tonsillectomy and tubal ligation. She indicates there is a family history of dementia when family members were in their 80s. Brother and sister have diabetes. SOCIAL HISTORY: The patient smokes. She indicates to me that she stopped drinking 1 year ago. She lives alone with a [id number] living nearby. ALLERGIES: DUST AND POLLEN. MEDICATIONS: On admission, amitriptyline which she has been on chronically for I believe both sleep and headache, ascorbic acid, calcium and vitamin D, vitamin D3, B12, Prolia, docusate, iron, Flonase, Mobic, Patanol, Dilantin 200 in the morning and 100 at night, prednisone 5 mg at bedtime, ranitidine, Requip 0.25 at bedtime, simvastatin, Azulfidine, Spiriva, p.r.n. albuterol, baclofen, menthol and oxycodone. On admission there was approximately 25 points of orthostasis noted. Her initial vitals were 65, 22, 163/68, 92% on room air. She was described as being restless in bed. Urinalysis was negative. LABORATORY DATA: Electrolytes: Sodium was mildly low at 134, potassium mildly low at 3.1. BUN and creatinine 11/0.7, calcium 8.4, phosphorus 3, magnesium normal. Transaminases normal. CK 178. Urine tox screen positive for Dilantin only. White count 6.1, H\T\H 9/25. MCV 107, platelet count 124. D-dimer 3620. CT of the head shows chronic vascular changes, query hypodensity in the estela versus artifact. A nodular density is noted in the left hemidiaphragm. CT of the C-spine impression no fractures. CT of the chest secretions resulting in opacification in the right lower lobe, mild mediastinal lymphadenopathy, no nodules identified within the skull base within the base of the left lung to correspond with the chest x-ray abnormality. PHYSICAL EXAMINATION: VITAL SIGNS: On current exam vitals 36.5, 156/72, 71, 95% on 2 liters. GENERAL: The patient has a waxing and waning attention. She is oriented to place and month. Initially thought it was 1917 then self corrected to 2017. She knows that Raisa is the president. Her naming she is able to name simple objects, declined to repeat, followed simple 1 step commands. She exhibits some odd thinking discussing some issues related to TV and that the nurses phone is beeping, which I think is simply the IVs in the room. I think she is misperceiving some of the environmental stimuli. Her voice is raspy as I had always known it to be. The patient is appearing chronically ill, thinner than I have known her to be. There is an area of ecchymosis periorbitally on the right, otherwise her head is atraumatic. No spine trauma is noted. NECK: Supple and nontender. There is a corneal opacity over the right eye. Left pupil is eccentric, I cannot visualize the optic nerve. She is blind in the right eye, normal quinn on the left, normal motility. There is flattening of the left nasolabial fold. Speech is nondysarthric. Tongue is midline. Gag is hypoactive. Oral mucosa is dry. No atrophy of the tongue is noted. Motor on gross inspection there are no carotid bruits. There are no heart murmurs. Lung sounds are distant. There is some atrophy of the distal lower extremities. There is some swelling of the right hand. Her tone was normal. There is a suggestion of some mild reduction of strength in the right arm and right leg, although the right arm is somewhat painful. There was no drift, but there were equal, diminished right rapid alternating movements. The reflexes are mildly brisk at the knees. There are bilateral crossed abductors, no clonus, left toe query up, right toe query down. There is some asterixis with outstretched hands. [id number]-gb-eshe is mildly dystaxic, although her attention is poor and [id number] is mildly dystaxic as well. Sensory examination proprioception is only present at the ankles. Her gait is wide based and ataxic. There is no resting tremor or cogwheel rigidity. I do not notice any dyskinesias or dystonia or chorea. IMPRESSION: 1. Mrs. Stover is well known to me with a history of chronic seizure disorder and polyfactorial gait dysfunction. Currently, I see some mild asterixis. Given her history of alcohol abuse would check an ammonia level. She does not appear to be retaining CO2 based on ABG to expect that is the reason for the asterixis. This can be seen with narcotic use as well. 2. There is reported orthostasis. however history is poorly given likely because of delirium. It is unclear if this is in part related to decreased oral intake. Her mouth is dry, which may be a medication effect, but her BUN and creatinine do not reflect dehydration. Among her medications Requip and amitriptyline can cause significant orthostasis. If this is is a persistent symptom or sign could consider at least tapering the amitriptyline. 3. The dystaxia is probably multifactorial. She has evidence of peripheral neuropathy. She has chronically used Dilantin and has been a heavy alcohol user and the dystaxia may be cerebellar and given the history of smoking and abnormality on chest x-ray paraneoplastic cause is not entirely excluded. In that regard, I would recommend an MRI of the brain to look for cerebellar atrophy, multiple infarcts and to clarify the right pontine abnormality as to whether or not that is an infarct which would be old, versus an artifact. The gait dysfunction is also likely related to the neuropathy. I cannot exclude a myelopathy component. She has brisk reflexes across the adductors and she has rheumatoid arthritis. The CT of the cervical spine shows no overt severe cervical stenosis. I would check a flexion and extension x-ray and consider an MRI of the C-spine. The neuropathy may be related to alcohol, Dilantin. Her MCV is elevated should check a B12, folate, thiamine and would also consider empirically treating with thiamine. Ultimately the patient appears to be mildly delirious, which may be from her infection, medications and this may be superimposed on a mild dementia. Will need to see how she clears to make any further determinations in that regard. The etiology of her dysphagia is unclear to me. I think the MRI might be revealing. I do not see any evidence that this is lower motor neuron. Given the weight loss one may want to consider further upper endoscopy to rule out esophageal component given her dysphagia worse for solids than liquids. It appears that a barium swallow was attempted on the last admission, but the patient aspirated barium and the procedure was terminated. Will follow with you. ROBBY
--- NOTE | 2017-03-24 13:33 | Progress Note ---
Medicine Progress Note Date & Time of Visit: March 24, 2017 at 12:59. Subjective Pt was seen and examined Sitting in bed with no distress Pt said that her body feels sore all over she said that she has been shaking pt said that her mobility is horrible and she does not have any balance She denies any chest pain, palpitation and dizziness Objective Last 8 Hrs Date Time Temp Pulse Resp B/P Pulse Ox O2 Delivery O2 Flow Rate FiO2 03/24/17 11:31 36.5 71 20 156/72 95 2.0 03/24/17 08:00 Nasal Cannula 2.0 03/24/17 07:07 64 14 98 Nasal Cannula 2.0 03/24/17 06:42 36.7 65 20 120/54 97 Nasal Cannula 2.0 Physical Exam: General- No acute distress Head- atraumatic Eyes- Ecchymoses in Right orbit, blindness in right eye ENT- oropharynx clear Neck- supple, no JVD Lungs- No wheezing Heart- regular rhythm; no murmur Abdomen- normal bowel sounds, soft Extremities- no calf tenderness Neuro- alert, confused, oriented,no facial palsy Skin- warm & dry Laboratory Results: Last 24 Hours Test 03/23/17 15:25 03/23/17 16:05 03/24/17 01:07 03/24/17 06:35 Urine Color YELLOW Urine Appearance CLEAR Urine pH 8.5 Urine Specific [place] 1.010 Urine Protein NEG Urine Glucose (UA) NEG Urine Ketones NEG Urine Occult Blood NEG Urine Nitrite NEG Urine Bilirubin NEG Urine Urobilinogen NEG Urine Leukocyte Esterase NEG Sodium Level 134 mmol/L 144 mmol/L Potassium Level 3.3 mmol/L 3.8 mmol/L Chloride Level 95 mmol/L 110 mmol/L Carbon Dioxide Level 32 mmol/L 28 mmol/L Anion Gap 7.0 mmol/L 6.0 mmol/L Blood Urea Nitrogen 11 mg/dl 7 mg/dl Creatinine 0.73 mg/dl 0.53 mg/dl Est Creatinine Clear Calc Drug Dose 43.2 ml/min 56.7 ml/min Estimated GFR () 92.1 106.1 Estimated GFR (Non- 79.4 91.6 BUN/Creatinine Ratio 15.0 12.3 Random Glucose 97 mg/dl 107 mg/dl Calcium Level 8.4 mg/dl 7.7 mg/dl Phosphorus Level 3.0 mg/dl Magnesium Level 2.0 mg/dl Total Bilirubin 0.5 mg/dl Direct Bilirubin 0.1 mg/dl Aspartate Amino Transf (AST/SGOT) 24 U/L Alanine Aminotransferase (ALT/SGPT) 14 U/L Alkaline Phosphatase 114 U/L Total Creatine Kinase 178 U/L Troponin I < 0.015 ng/ml Pro-B-Type Natriuretic Peptide 577 pg/ml Total Protein 7.4 gm/dl Albumin 4.0 gm/dl Thyroid Stimulating Hormone (TSH) 2.400 uIu/ml Urine Opiates Screen NEG Urine Methadone, Qualitative NEG Urine Barbiturates NEG Phenytoin (Dilantin) Level 16.3 mcg/mL Urine Phencyclidine (PCP) Level NEG Ur Amphetamine/Methamphetamine NEG MDMA (Ecstasy) Screen NEG Urine Benzodiazepines Screen NEG Urine Cocaine Metabolite NEG Urine Marijuana (THC) NEG White Blood Count 6.17 K/uL 4.56 K/uL Red Blood Count 2.37 M/uL 2.45 M/uL Hemoglobin 9.0 g/dL 9.4 g/dL Hematocrit 25.4 % 27.1 % Mean Corpuscular Volume 107.2 fL 110.6 fL Mean Corpuscular Hemoglobin 38.0 pg 38.4 pg Mean Corpuscular Hemoglobin Concent 35.4 g/dl 34.7 g/dl Platelet Count 124 K/uL 144 K/uL Mean Platelet Volume 8.1 fL 8.7 fL Neutrophils (%) (Auto) 76.5 % Lymphocytes (%) (Auto) 14.3 % Monocytes (%) (Auto) 8.4 % Eosinophils (%) (Auto) 0.3 % Basophils (%) (Auto) 0.2 % Neutrophils # (Auto) 4.72 K/uL Lymphocytes # (Auto) 0.88 K/uL Monocytes # (Auto) 0.52 K/uL Eosinophils # (Auto) 0.02 K/uL Basophils # (Auto) 0.01 K/uL RDW Standard Deviation 54.5 fL 57.2 fL RDW Coefficient of Variation 14.1 % 14.3 % Immature Granulocyte % (Auto) 0.3 % Immature Granulocyte # (Auto) 0.02 K/uL D-Dimer 3620 ug/L FEU Arterial Blood pH 7.41 Arterial Blood Partial Pressure CO2 46 mmHg Arterial Blood Partial Pressure O2 92 mm/Hg Arterial Blood HCO3 29 mmol/L Arterial Blood Oxygen Saturation 95.6 % Arterial Blood Base Excess 3.7 mEq/L Arterial Blood Gas Delivery 2 LITTERS Alex Test POS Test 03/24/17 11:48 Assessment & Plan GENERALIZED WEAKNESS/ FALLS SYNCOPE VS NEAR SYNCOPE ambulatory dysfunction vs seizure vs orthostatic CT head was negative No arrhythmia noted on tele monitor Received IVF check orthostatic Fall precaution PT/OT PNEUMONIA Possible related to aspiration CT chest showed secretions resulting in opacification of the right lower lobe bronchi with patchy airspace opacities and interstitial thickening at the base of the right lower lobe. Recieved unasyn and zithromax in the ER Continue abx immunocompromised state with sulfasalazine and chronic prednisone use s/p Unasyn and Azithromycin in the ED; will continue with Aspiration protocol Continue monitor closely POSSIBLE LUNG MASS noted on CT chest pulmonary consulted- pending lifelong heavy tobacco use ELEVATED D. DIMER Saturated well on 2L, no tachycardia Doppler of LEs negative V/Q scan showed probability for PE HX EPILEPSY continue Dilantin phenytoin level 16 seizures precaution Stable ANEMIA chronic, baseline hgb ~ 10 hgb 9.4 continue to monitor POSSIBLE NEUROLOGIC DISORDER Patient has orthostasis, fall, dysphagia, possible movement disorder, unusual affect. Neuro Consulted- Pending RHEUMATOID ARTHRITIS Sulfasalazine on hold due to acute illness On Prednisone Stable COPD asymptomatic Continue neb treatment TOBACCO ABUSE Counseling on smoking cessation DVT PROPHYLAXIS SCDs and ambulate CODE STATUS FULL CODE Consultants: Neurology Pulmonary Current Inpatient Medications: Current Inpatient Medications Medications (Trade) Dose Ordered Sig/Maris Route Start Time Stop Time Status Last Admin Dose Admin Acetaminophen (Tylenol Tab) 650 mg Q4H PRN PO 03/23/17 19:00 04/22/17 18:59 Ondansetron HCl 4 mg 4 mg Q6H PRN IV 03/23/17 19:00 04/22/17 18:59 03/24/17 11:39 4 MG Ampicillin Sodium/ Sulbactam Sodium 3000 mg/Sodium Chloride 108 ml @ 200 mls/hr Q6H IV 03/24/17 02:00 03/31/17 01:59 03/24/17 08:45 200 MLS/HR Azithromycin/ Dextrose (Zithromax IV/D5 250ml) 255 ml @ 125 mls/hr DAILY IV 03/24/17 09:00 03/31/17 08:59 03/24/17 08:48 125 MLS/HR Oxycodone/ Acetaminophen (Percocet 5-325mg Tab) 1 tab Q6H PRN PO 03/23/17 19:15 04/06/17 19:14 Albuterol/ Ipratropium (Duoneb) 3 ml Q6R INH 03/23/17 21:00 04/22/17 20:59 03/24/17 07:07 3 ML Amitriptyline HCl (Elavil Tab) 35 mg HS PO 03/23/17 21:00 04/22/17 20:59 Ascorbic Acid (Vitamin C Tab) 500 mg DAILY PO 03/24/17 09:00 04/23/17 08:59 Cyanocobalamin (Vitamin B-12 Tab) 1,000 mcg DAILY PO 03/24/17 09:00 04/23/17 08:59 Docusate Sodium (coLACE CAP) 100 mg BID PO 03/23/17 21:00 04/22/17 20:59 Ferrous Sulfate (Feosol Tab) 325 mg QAM PO 03/24/17 09:00 04/23/17 08:59 Fluticasone Propionate (Flonase Nasal Winter) 1 sprays DAILY FRANCK 03/24/17 09:00 04/23/17 08:59 Meloxicam (Mobic Tab) 7.5 mg DAILY PO 03/24/17 09:00 04/23/17 08:59 Multivitamins (Multivitamin Tab) 1 tab DAILY PO 03/24/17 09:00 04/23/17 08:59 Phenytoin Sodium (Dilantin Er Cap) 100 mg HS PO 03/23/17 21:00 04/22/17 20:59 03/23/17 23:30 100 MG Phenytoin Sodium (Dilantin Er Cap) 200 mg DAILY PO 03/24/17 09:00 04/23/17 08:59 Prednisone (PredniSONE TAB) 5 mg HS PO 03/23/17 21:00 04/22/17 20:59 Ranitidine HCl (zANTac TAB) 150 mg HS PO 03/23/17 21:00 04/22/17 20:59 Ropinirole HCl (Requip Tab) 0.25 mg HS PO 03/23/17 21:00 04/22/17 20:59 Senna (Senokot Tab) 8.6 mg DAILY PO 03/24/17 09:00 04/23/17 08:59 Simvastatin (Zocor Tab) 20 mg HS PO 03/23/17 21:00 04/22/17 20:59 Calcium/Vitamin D (Caltrate Plus Tab) 1 tab QAM PO 03/24/17 09:00 04/23/17 08:59 Cholecalciferol (Vitamin D Tab) 5,000 inter.unit DAILY PO 03/24/17 09:00 04/23/17 08:59 Miscellaneous Information (Order Awaiting Action) 1 ea QS N/A 03/24/17 00:00 04/23/17 00:00
--- NOTE | 2017-03-24 13:41 | Pulmonary Consultation ---
History General Date of Service: March 24, 2017. Stated Complaint: Fall; Pneumonia HPI The patient is a 76 year old female who presents to [facility] with complaints of Fall; Pneumonia. The patient's primary care provider is Doni Lewis M.D.. The information in this consult is obtained via the EMS system and bedside nurses as the patient's altered 76 y/o female admitted s/p fall with associated head trauma after to use the rest room with head trauma but no LOC. She was able to walk back to bed. Her [id number] then found her on the couch and difficult to arouse on the afternoon of admission. She then presented to the ED and there noted feeling ill and SOB for the past few days with no change in her chronic cough. She has a PmHx: significant for aspiration (poorly compliant with aspiration precautions ), epilepsy, COPD, restless legs syndrome and RA. Denies: chest pain, abdominal pain, nausea, vomiting diarrhea, fever, chills or urinary symptoms Work-Up WBC: 6K5K H/H: 08/01 Plt: 144K AB.41/46/92/292Lnc D-dimer: 3620 Phenytoin: 16.3 (therapeutic range) CXR compared to (07/29/17) RLL opacification with signs of chronic changes CT Thorax compared to CT ABD (01/15/26) Increased posterior bilateral lower lobe opacifications DVT Study No DVT in the RLE Treatment: ED: Azithromycin, IV Unasyn, and IV Morphine Azithromycin 500mg QD Unasyn 3gm IV Q6 Meloxicam 7.5mg QD Flonase 1 puff QD Phenytoin 200mg QD Amitriptyline 35mg QHS Duo Neb Q6 Prednisone 5mg QHS Precocet 5-325mg Q4 prn Requip 0.25mg QHS restless legsided effect ortho-static hypotension) Historian: caregiver, EMS Review of Systems Patient is unable to perform a 12 point ROS Past Medical History Past Medical History: (1) Anemia of chronic disorder (2) Arthritis (3) Bullous keratopathy (4) Chronic obstructive lung disease (I have no PFTs to verify this dx) (5) Claudication (6) Epilepsy (7) Hypercholesterolemia (8) Osteoporotic vertebral collapse (9) Restless leg syndrome (10) Rheumatoid arthritis (11) Tobacco user (12) Intra-abdominal adhesions (13) Aspiration Barium study (01/18/16) terminated prior to study as the patient aspirated barium Video Swallow (01/18/16) silent aspiration of thin liquids Past Surgical History: (1) Status post repair hip fracture (2) Status post appendectomy (3) Status post cataract extraction (4) Status post exploratory laparotomy x3 for adhesions (5) Status post hysterectomy (6) Status post ovarian cystectomy (7) Status post tonsillectomy (8) Status post tubal ligation Family History Diabetes mellitus BROTHER SISTER Social History Hx Tobacco Use In Past Year?: Yes Smoking Status: Current Every Day Smoker Housing status: lives alone Immunizations History of Influenza Vaccine: Yes Influenza Vaccine Date: Jul 24, 2016 History of Tetanus Vaccine?: Yes Tetanus Immunization Date: Mar 04, 2008 History of Pneumococcal: Yes Pneumococcal Date: Nov 15, 2007 History of MDRO History of MDRO: No Allergies Coded Allergies: Dust (Verified Allergy, Mild, ITCHY EYES,RUNNY NOSE, 03/23/17) POLLEN (Verified Allergy, Mild, SEASONAL-ITCHY EYES,RUNNY NOSE, 03/23/17) Current Medications Reported Home Medications Medications Dose Route/Sig Max Daily Dose Days Date Category Dose Instructions Dilantin (Phenytoin Sodium) 100 Mg Cap 200 Mg PO DAILY 30 03/23/17 Reported Ventolin Hfa (Albuterol) 200 Puffs/82625 Mcg Aers 2-4 Puffs INH Q6H PRN 03/23/17 Reported Ascorbic Acid 500 Mg Tab 500 Mg PO DAILY 07/29/16 Reported Mobic (Meloxicam) 7.5 Mg Tab 7.5 Mg PO DAILY 07/29/16 Reported Ferrous Sulfate 325 Mg Tab 325 Mg PO QAM 07/29/16 Reported Lioresal (Baclofen) 20 Mg Tab 20 Mg PO BID PRN 07/29/16 Reported Percocet 5MG/325MG (Oxycodone/Acetaminophen) Tab 1 Tablet PO Q4H PRN 07/29/16 Reported Flonase Allergy Relief (Fluticasone Propionate (Nasal)) 50 Mcg/Act Spr 1 [place] FRANCK DAILY 07/29/16 Reported Azulfidine (Sulfasalazine) 500 Mg Tab 500 Mg PO BID 01/16/16 Reported Sennosides 8.6 Mg Tab 8.6 Mg PO DAILY 08/16/14 Reported Vitamin B-12 (Cyanocobalamin) 1,000 Mcg Tab 1,000 Mcg PO DAILY 08/07/14 Reported Vitamin D3 (Cholecalciferol) 5,000 Unit Cap 5,000 Inter.unit PO DAILY 08/07/14 Reported Calcium 600 + D (Calcium Carbonate-Vitamin D) 1 Tab Tab 1 Tabs PO DAILY 08/07/14 Reported Requip (Ropinirole Hydrochloride) 0.25 Mg Tab 0.25 Mg PO HS 08/07/14 Reported TAKE THIS MEDICATION 1-3 HOURS BEFORE BEDTIME. Ranitidine HCl 150 Mg Tab 150 Mg PO HS 08/07/14 Reported Stool Softener (Docusate Sodium) 100 Mg Cap 100 Mg PO BID 08/07/14 Reported Patanol (Olopatadine Hydrochloride) 75 Drops/5 Ml Soln 1 Drop OP DAILY 08/07/[address] IN AFFECTED EYE(s) DIRECTED. Amitriptyline HCl 25 Mg Tab 35 Mg PO HS 08/07/14 Reported TAKE ONE 25 MG TABLET ALONG WITH ONE 10 MG TABLET TO EQUAL DAILY DOSE OF 35 MG. Simvastatin 20 Mg Tab 20 Mg PO HS 08/07/14 Reported Spiriva Handihaler (Tiotropium Thayer) 30 Puff/540 Mcg Aerp 1 Cap INH QAM 08/07/14 Reported Multivitamin (Multivitamins) Tab 1 Tab PO DAILY 05/27/13 Reported Icy Hot Back Patch (Menthol (Topical Analgesic)) 5 % Pad 1 Appln TOP DAILY PRN 05/27/13 Reported Prednisone 5 Mg Tab 5 Mg PO HS 05/27/13 Reported Prolia (Denosumab) 60 Mg/Ml Brianna 60 Mg SQ Q6 MONTHS 05/27/13 Reported Dilantin (Phenytoin Sodium) 100 Mg Cap 100 Mg PO HS 05/27/13 Reported Physical Physical Exam Vital Signs: Date Time Temp Pulse Resp B/P Pulse Ox O2 Delivery O2 Flow Rate FiO2 03/24/17 11:31 36.5 71 20 156/72 95 2.0 03/24/17 08:00 Nasal Cannula 2.0 03/24/17 07:07 64 14 98 Nasal Cannula 2.0 03/24/17 06:42 36.7 65 20 120/54 97 Nasal Cannula 2.0 03/24/17 04:43 36.3 73 18 105/56 97 Nasal Cannula 2.0 03/24/17 04:00 Nasal Cannula 2.0 03/24/17 02:03 58 14 92 Nasal Cannula 2.0 03/24/17 00:00 Nasal Cannula 2.0 03/23/17 22:56 35.9 58 16 116/63 90 Room Air 03/23/17 21:59 58 152/67 03/23/17 21:30 36.1 64 20 192/66 90 Room Air 03/23/17 21:07 62 150/67 03/23/17 19:14 Room Air 03/23/17 18:58 65 22 163/68 92 Room Air 03/23/17 18:20 67 18 169/71 97 Room Air 03/23/17 17:12 65 14 171/56 95 Room Air 03/23/17 15:27 93 Room Air 03/23/17 15:27 154/63 149/77 128/82 03/23/17 15:22 66 03/23/17 15:12 36.6 70 18 151/79 93 Room Air General Appearance: uncomfortable, cachetic Head: NORMOCEPHALIC, other (right sided supra and carmina-occipital echymosis ) Eyes: other (rigth cataract left equal and reactive to light ) ENT: NORMAL EAR EXAM, NORMAL NASAL EXAM, NORMAL MOUTH EXAM, NORMAL THROAT EXAM , NORMAL DENTAL EXAM (upper dentures in place and dry mucus membranes ) Neck: NORMAL RANGE OF MOTION, NO TENDERNESS, TRACHEA MIDLINE, NO STRIDOR Respiratory: other (rhonchi at the basis bilaterlly ) Abdomen: NON TENDER, NORMAL BOWEL SOUNDS, NO REBOUND, NO MASSES, NO GUARDING, NO ORGANOMEGALY Genitourinary - Female: EXTERNAL GENITALIA NORMAL Back: NORMAL INSPECTION, NO MIDLINE TENDERNESS, NO CVA TENDERNESS, NO PARAVERTEBRAL TTP Upper Extremities: NO EDEMA, NO DEFORMITY, NORMAL ROM Lower Extremities: NO EDEMA, NO DEFORMITY, NORMAL ROM Pulses: carotid (R) (2+), carotid (L) (2+), posterior tibial (R), posterior tibial (L) (1+) Neuro: confused Reflexes: biceps (R) (1+), bicpes (L) (1+), patellar (R) (1+), patellar (L) (1+ ) Babinski Testing: right (equivocal), left (equivocal) Psychiatric: other (altered) Diagnostics Labs Results Past 24 Hours Test 03/23/17 15:25 5/19/17 16:05 03/24/17 01:07 03/24/17 06:35 Range/Units Urine Color YELLOW Urine Appearance CLEAR CLEAR Urine pH 8.5 4.5-7.5 Urine Specific [place] 1.010 1.000-1.030 Urine Protein NEG NEG Urine Glucose (UA) NEG NEG Urine Ketones NEG NEG Urine Occult Blood NEG NEG Urine Nitrite NEG NEG Urine Bilirubin NEG NEG Urine Urobilinogen NEG NEG Urine Leukocyte Esterase NEG NEG Sodium Level 134 144 136-145 mmol/L Potassium Level 3.3 3.8 3.5-5.1 mmol/L Chloride Level 95 110 98-107 mmol/L Carbon Dioxide Level 32 28 21-32 mmol/L Anion Gap 7.0 6.0 3-11 mmol/L Blood Urea Nitrogen 11 7 7-18 mg/dl Creatinine 0.73 0.53 0.60-1.20 mg/dl Est Creatinine Clear Calc Drug Dose 43.2 56.7 ml/min Estimated GFR () 92.1 106.1 Estimated GFR (Non- 79.4 91.6 BUN/Creatinine Ratio 15.0 12.3 10-20 Random Glucose 97 107 70-99 mg/dl Calcium Level 8.4 7.7 8.5-10.1 mg/dl Phosphorus Level 3.0 2.5-4.9 mg/dl Magnesium Level 2.0 1.8-2.4 mg/dl Total Bilirubin 0.5 0.2-1 mg/dl Direct Bilirubin 0.1 0-0.2 mg/dl Aspartate Amino Transf (AST/SGOT) 24 15-37 U/L Alanine Aminotransferase (ALT/SGPT) 14 12-78 U/L Alkaline Phosphatase 114 45-117 U/L Total Creatine Kinase 178 26-192 U/L Troponin I < 0.015 0-0.045 ng/ml Pro-B-Type Natriuretic Peptide 577 0-1800 pg/ml Total Protein 7.4 6.4-8.2 gm/dl Albumin 4.0 3.4-5.0 gm/dl Thyroid Stimulating Hormone (TSH) 2.400 0.300-4.500 uIu/ml Urine Opiates Screen NEG NEG Urine Methadone, Qualitative NEG NEG Urine Barbiturates NEG NEG Phenytoin (Dilantin) Level 16.3 10-20 mcg/mL Urine Phencyclidine (PCP) Level NEG NEG Ur Amphetamine/Methamphetamine NEG NEG MDMA (Ecstasy) Screen NEG NEG Urine Benzodiazepines Screen NEG NEG Urine Cocaine Metabolite NEG NEG Urine Marijuana (THC) NEG NEG White Blood Count 6.17 4.56 4.8-10.8 K/uL Red Blood Count 2.37 2.45 4.2-5.4 M/uL Hemoglobin 9.0 9.4 12.0-16.0 g/dL Hematocrit 25.4 27.1 37-47 % Mean Corpuscular Volume 107.2 110.6 80-100 fL Mean Corpuscular Hemoglobin 38.0 38.4 25-34 pg Mean Corpuscular Hemoglobin Concent 35.4 34.7 32-36 g/dl Platelet Count 124 144 130-400 K/uL Mean Platelet Volume 8.1 8.7 7.4-10.4 fL Neutrophils (%) (Auto) 76.5 % Lymphocytes (%) (Auto) 14.3 % Monocytes (%) (Auto) 8.4 % Eosinophils (%) (Auto) 0.3 % Basophils (%) (Auto) 0.2 % Neutrophils # (Auto) 4.72 1.4-6.5 K/uL Lymphocytes # (Auto) 0.88 1.2-3.4 K/uL Monocytes # (Auto) 0.52 0.11-0.59 K/uL Eosinophils # (Auto) 0.02 0-0.5 K/uL Basophils # (Auto) 0.01 0-0.2 K/uL RDW Standard Deviation 54.5 57.2 36.4-46.3 fL RDW Coefficient of Variation 14.1 14.3 11.5-14.5 % Immature Granulocyte % (Auto) 0.3 % Immature Granulocyte # (Auto) 0.02 0.00-0.02 K/uL D-Dimer 3620 0-500 ug/L FEU Arterial Blood pH 7.41 7.35-7.45 Arterial Blood Partial Pressure CO2 46 35-46 mmHg Arterial Blood Partial Pressure O2 92 80-95 mm/Hg Arterial Blood HCO3 29 19-24 mmol/L Arterial Blood Oxygen Saturation 95.6 90-95 % Arterial Blood Base Excess 3.7 -9-1.8 mEq/L Arterial Blood Gas Delivery 2 LITTERS Alex Test POS POS Test 03/24/17 11:48 Range/Units Diagnostic Radiology CXR compared to (07/29/17) RLL opacification with signs of chronic changes CT Thorax compared to CT ABD (01/15/26) Increased posterior bilateral lower lobe opacifications EKG Interpretation: NORMAL EKG Impression Assessment and Plan 76y/o female admitted with acute AMS and bilateral lower lobe infiltrates: 1) Lower Lobe Infiltrates: Most likely with aspiration as our patient is already diagnoses with a hx of chronic aspiration and she had recent fall. I suggest we d/c Azithromycin at this time and continue with Unasyn. We will have to f/u on the speech pathologist evaluation but as the patient is notable altered I suggest we place a Dobbhoff tube but will defer to speech pathology. 2) Vertigo/Fall: The patient is on multiple medications that can increase her risk of fall from altered sensorium to othro-static hypotension. I will order othro-static Bps (no-standing). When the patient is stable her medications will require review and a PT evaluation will be necessary. 3) Abnormal CT: This patient is noted to have signs of chronic aspiration on CXR and CT but doesn't have lobar atelectasis or from what I can see a classic obstructive lung mass. I will start treatment with chest PT, Dornase and f/u CXR. If the patient progressive a bronchoscopy may be warranted at that time.
--- NOTE | 2017-03-24 14:44 | DIAGNOSTIC IMAGING REPORT ---
MRI OF THE BRAIN WITHOUT AND WITH IV CONTRAST CLINICAL HISTORY: r/o pontine stroke, cerebell atrophy COMPARISON STUDY: No previous studies for comparison. TECHNIQUE: Utilizing a 1.5 Tana magnet and dedicated coil, multiplanar, multiecho imaging of the brain was performed pre and postcontrast administration. IV administration of 8.5 mL of Gadavist contrast was uneventful. FINDINGS: Diffusion-weighted images show no acute ischemic insult. Remaining images are remarkable for moderate chronic small vessel change of aging. There is also a chronic small vessel focus involving the right central estela. There is mild cerebral atrophy. There is moderate cerebellar atrophy. Ventricular system is midline. Postcontrast images are negative for an enhancing lesion. IMPRESSION: 1. No evidence for an acute ischemic process. 2. Moderate cerebellar atrophy. 3. Mild age-related cerebral atrophy. 4. Mild chronic small vessel change including a small chronic ischemic focus right central estela 5. No evidence for abnormal postcontrast enhancement Electronically signed by: Dat Drew M.D. 03/24/2017 2:43 PM Dictated Date/Time: 03/24/2017 2:37 PM
--- NOTE | 2017-03-24 14:45 | DIAGNOSTIC IMAGING REPORT ---
CERVICAL SPINE 8 VIEWS HISTORY: Myelopathy. Rheumatoid change. RA, myelopathy, r/o instability COMPARISON: None. FINDINGS: The cervical spine is visualized from C1 through the superior endplate of T1. There is no fracture. No subluxation. Moderate degenerative disc changes throughout. Degenerative changes of posterior elements throughout. IMPRESSION: Degenerative change throughout the entire cervical spine. No evidence for subluxation on a positional basis. Electronically signed by: Dat Drew M.D. 03/24/2017 2:44 PM Dictated Date/Time: 03/24/2017 2:43 PM
[2017-03-24] MEDS: DORNASE ALFA (2500U) 2.5MG/2.5ML INH SCH (19:14)
[2017-03-24] MEDS: ROPINIROLE HCL 0.25 MG TAB PO SCH (20:38)
[2017-03-24] MEDS: AMITRIPTYLINE HCL 10 MG TAB PO SCH (20:39)
[2017-03-24] MEDS: RANITIDINE HCL 150 MG TAB PO SCH (20:40)
[2017-03-24] MEDS: SIMVASTATIN 20 MG TAB PO SCH (20:40)
[2017-03-24] MEDS: OXYCODONE/ACETAMINOPHEN 5-325 TAB PO PRN (20:50)
[2017-03-25] VITALS (10 sets, daily range): BP systolic 126–175; BP diastolic 60–71; PULSE 71–91; TEMP 36.5–36.8; O2SAT 92–95
[2017-03-25] MEDS: ALBUT/IPRATROP 3MG/0.5MG NEB 3 ML VIAL INH SCH ×4 (01:50→19:15)
[2017-03-25] MEDS: AMPICILLIN/SULBACTAM SOD INJ 3,000 MG in SODIUM CHLORIDE 0.9% 100ML 100 ML IV SCH ×4 (02:00→19:59)
[2017-03-25] MEDS: OXYCODONE/ACETAMINOPHEN 5-325 TAB PO PRN (02:36)
[2017-03-25 06:46] LABS: MEAN CELL VOLUME 110.6 fL (80-100); MEAN CORPUSCULAR HEMOGLOBIN 37.2 pg (25-34); MEAN CORPUSCULAR HGB CONC 33.6 g/dl (32-36); MEAN PLATELET VOLUME 8.5 fL (7.4-10.4); PLATELET COUNT 143 K/uL (130-400); RED BLOOD COUNT 2.26 M/uL (4.2-5.4); WHITE BLOOD COUNT 6.35 K/uL (4.8-10.8)
[2017-03-25 07:09] LABS: BUN/CREATININE RATIO 16.1 (10-20); CALCIUM 7.8 mg/dl (8.5-10.1); CREATININE 0.43 mg/dl (0.60-1.20); POTASSIUM 3.8 mmol/L (3.5-5.1)
[2017-03-25] MEDS: DORNASE ALFA (2500U) 2.5MG/2.5ML INH SCH ×2 (07:38→19:15)
[2017-03-25] MEDS: DOCUSATE SODIUM 100 MG CAP PO SCH ×2 (08:29→20:10)
[2017-03-25] MEDS: FERROUS SULFATE 325 MG TAB PO SCH (08:29)
[2017-03-25] MEDS: SENNA 8.6 MG TAB PO SCH (08:29)
[2017-03-25] MEDS: CYANOCOBALAMIN 500 MCG TAB (VIT B-12) PO SCH (08:29)
[2017-03-25] MEDS: PHENYTOIN SODIUM ER 100 MG CAP PO SCH ×2 (08:30→20:10)
[2017-03-25] MEDS: CHOLECALCIFEROL 1000 INTER.UNIT TAB PO SCH (08:30)
[2017-03-25] MEDS: ASCORBIC ACID 500 MG TAB PO SCH (08:30)
[2017-03-25] MEDS: CALCIUM 600MG + VIT D 400 IU TAB PO SCH (08:30)
[2017-03-25] MEDS: MELOXICAM 7.5 MG TAB PO SCH (08:30)
[2017-03-25] MEDS: MULTIVITAMIN TAB PO SCH (08:30)
[2017-03-25] MEDS: FLUTICASONE PROPIONATE NA SPR 16 GM BTL NAE SCH (08:31)
--- NOTE | 2017-03-25 12:35 | NEUROLOGY CONSULTATION ---
DATE OF CONSULTATION: 03/25/2017 HISTORY OF PRESENT ILLNESS: I am seeing Ms. Stover in followup of gait dysfunction, ? movement disorders. Her MRI of the brain shows cerebellar atrophy out of proportion to cerebral atrophy, moderate chronic ischemic changes and there is a small infarct in the right central estela. Good flow void is noted through the visualized vertebral and basilar arteries. Her ammonia level was mildly elevated, B12 and folate were normal and thiamine level is pending. PHYSICAL EXAMINATION: GENERAL: She is sleepy but arousable, oriented to place, marginally irritable, is not particularly apt to follow commands. Denies any headache. There is periorbital ecchymosis on the right. There is normal visual quinn on the left. There is mild flattening of the left nasolabial fold, although again the patient is not particularly cooperative with testing. When I asked her to extend her arms, she was not willing to do so. IMPRESSION: The patient appears stable. I do not see any overt movement disorder, dyskinesia. She would not allow me to test for asterixis, which I would not be surprised if it was present and likely metabolic related to medication. 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 I am somewhat hesitant to make a change in her anticonvulsant. I am contemplating that to minimize its contribution to her ataxia. That having been said, she lives alone and it would be concerning to me if we need any major changes if she were to have a breakthrough seizure. She is not monitored. If I were to make a change, I would add Keppra and then take Dilantin away over the space of a month. I think it depends on what she looks like after she is improved from her pneumonia. She will also likely need a nerve conduction the EMG as an outpatient if I find that she has otherwise not had one. We will continue to follow with you. ROBBY
--- NOTE | 2017-03-25 17:25 | Progress Note ---
Medicine Progress Note Date & Time of Visit: March 25, 2017 at 17:12. Subjective Pt was seen and examined lying in bed with no distress pt said that she feels sore all over her body denies any chest pain, palpitation and sob Objective Last 8 Hrs Date Time Temp Pulse Resp B/P Pulse Ox O2 Delivery O2 Flow Rate FiO2 03/25/17 15:45 Room Air 03/25/17 15:24 36.5 77 15 126/68 93 Room Air 03/25/17 14:18 72 14 93 Room Air 03/25/17 12:00 Room Air 03/25/17 11:36 36.8 74 15 155/69 95 Room Air 03/25/17 09:18 Room Air Physical Exam: General- No acute distress Head- atraumatic Eyes- Ecchymoses in Right orbit, blindness in right eye ENT- oropharynx clear Neck- supple, no JVD Lungs- No wheezing Heart- regular rhythm; no murmur Abdomen- normal bowel sounds, soft Extremities- no calf tenderness Neuro- alert, confused/oriented,no facial palsy Skin- warm & dry Laboratory Results: Last 24 Hours Test 03/25/17 06:04 White Blood Count 6.35 K/uL Red Blood Count 2.26 M/uL Hemoglobin 8.4 g/dL Hematocrit 25.0 % Mean Corpuscular Volume 110.6 fL Mean Corpuscular Hemoglobin 37.2 pg Mean Corpuscular Hemoglobin Concent 33.6 g/dl RDW Standard Deviation 57.4 fL RDW Coefficient of Variation 14.5 % Platelet Count 143 K/uL Mean Platelet Volume 8.5 fL Sodium Level 143 mmol/L Potassium Level 3.8 mmol/L Chloride Level 110 mmol/L Carbon Dioxide Level 26 mmol/L Anion Gap 7.0 mmol/L Blood Urea Nitrogen 7 mg/dl Creatinine 0.43 mg/dl Est Creatinine Clear Calc Drug Dose 71.3 ml/min Estimated GFR () 113.7 Estimated GFR (Non- 98.1 BUN/Creatinine Ratio 16.1 Random Glucose 96 mg/dl Calcium Level 7.8 mg/dl Assessment & Plan GENERALIZED WEAKNESS/ FALLS SYNCOPE VS NEAR SYNCOPE ambulatory dysfunction vs seizure vs orthostatic CT head was negative No arrhythmia noted on tele monitor Consider inpatient rehab Fall precaution PT/OT PNEUMONIA Possible related to aspiration CT chest showed secretions resulting in opacification of the right lower lobe bronchi with patchy airspace opacities and interstitial thickening at the base of the right lower lobe. Continue abx immunocompromised state with sulfasalazine and chronic prednisone use D/C Azithromycin Continue unasyn Aspiration precaution Continue chest PT, Dornase Repeat CXR in am Continue monitor closely ELEVATED D. DIMER Saturated well on 2L, no tachycardia Doppler of LEs negative V/Q scan showed probability for PE HX EPILEPSY continue Dilantin phenytoin level 16 No seizure activity noted seizures precaution Stable ANEMIA chronic, baseline hgb ~ 10 hgb 8.5 continue to monitor POSSIBLE NEUROLOGIC DISORDER Patient has orthostasis, fall, dysphagia, possible movement disorder, unusual affect. possible related to med MRI of the brain showed no evidence for an acute ischemic process. Neuro on board RHEUMATOID ARTHRITIS Sulfasalazine on hold due to acute illness On Prednisone Stable COPD asymptomatic Continue neb treatment TOBACCO ABUSE Counseling on smoking cessation DVT PROPHYLAXIS SCDs and ambulate CODE STATUS FULL CODE Consultants: Neurology Pulmonary Current Inpatient Medications: Current Inpatient Medications Medications (Trade) Dose Ordered Sig/Maris Route Start Time Stop Time Status Last Admin Dose Admin Acetaminophen (Tylenol Tab) 650 mg Q4H PRN PO 03/23/17 19:00 04/22/17 18:59 Ondansetron HCl 4 mg 4 mg Q6H PRN IV 03/23/17 19:00 04/22/17 18:59 03/24/17 11:39 4 MG Ampicillin Sodium/ Sulbactam Sodium/ Sodium Chloride (Unasyn Inj/Nss 100ml) 108 ml @ 200 mls/hr Q6H IV 03/24/17 02:00 03/31/17 01:59 03/25/17 14:42 200 MLS/HR Oxycodone/ Acetaminophen (Percocet 5-325mg Tab) 1 tab Q6H PRN PO 03/23/17 19:15 04/06/17 19:14 03/25/17 02:36 1 TAB Albuterol/ Ipratropium (Duoneb) 3 ml Q6R INH 03/23/17 21:00 04/22/17 20:59 03/25/17 14:37 3 ML Amitriptyline HCl (Elavil Tab) 35 mg HS PO 03/23/17 21:00 04/22/17 20:59 03/24/17 20:39 35 MG Ascorbic Acid (Vitamin C Tab) 500 mg DAILY PO 03/24/17 09:00 04/23/17 08:59 03/25/17 08:30 500 MG Cyanocobalamin (Vitamin B-12 Tab) 1,000 mcg DAILY PO 03/24/17 09:00 04/23/17 08:59 03/25/17 08:29 1,000 MCG Docusate Sodium (coLACE CAP) 100 mg BID PO 03/23/17 21:00 04/22/17 20:59 03/25/17 08:29 100 MG Ferrous Sulfate (Feosol Tab) 325 mg QAM PO 03/24/17 09:00 04/23/17 08:59 03/25/17 08:29 325 MG Fluticasone Propionate (Flonase Nasal [place]) 1 sprays DAILY FRANCK 03/24/17 09:00 04/23/17 08:59 03/25/17 08:31 1 SPRAYS Meloxicam (Mobic Tab) 7.5 mg DAILY PO 03/24/17 09:00 04/23/17 08:59 03/25/17 08:30 7.5 MG Multivitamins (Multivitamin Tab) 1 tab DAILY PO 03/24/17 09:00 04/23/17 08:59 03/25/17 08:30 1 TAB Phenytoin Sodium (Dilantin Er Cap) 100 mg HS PO 03/23/17 21:00 04/22/17 20:59 03/24/17 20:38 100 MG Phenytoin Sodium (Dilantin Er Cap) 200 mg DAILY PO 03/24/17 09:00 04/23/17 08:59 03/25/17 08:30 200 MG Prednisone (PredniSONE TAB) 5 mg HS PO 03/23/17 21:00 04/22/17 20:59 03/24/17 20:38 5 MG Ranitidine HCl (zANTac TAB) 150 mg HS PO 03/23/17 21:00 04/22/17 20:59 03/24/17 20:40 150 MG Ropinirole HCl (Requip Tab) 0.25 mg HS PO 03/23/17 21:00 04/22/17 20:59 03/24/17 20:38 0.25 MG Senna (Senokot Tab) 8.6 mg DAILY PO 03/24/17 09:00 04/23/17 08:59 03/25/17 08:29 8.6 MG Simvastatin (Zocor Tab) 20 mg HS PO 03/23/17 21:00 04/22/17 20:59 03/24/17 20:40 20 MG Calcium/Vitamin D (Caltrate Plus Tab) 1 tab QAM PO 03/24/17 09:00 04/23/17 08:59 03/25/17 08:30 1 TAB Cholecalciferol (Vitamin D Tab) 5,000 inter.unit DAILY PO 03/24/17 09:00 04/23/17 08:59 03/25/17 08:30 5,000 INTER.UNIT Miscellaneous Information (Order Awaiting Action) 1 ea QS N/A 03/24/17 00:00 04/23/17 00:00 Dornase Bennett (Pulmozyme Inhalation Soln 2.5ml Amp) 2.5 ml BID INH 03/24/17 21:00 03/27/17 20:59 03/25/17 07:38 2.5 ML
[2017-03-25] MEDS: SIMVASTATIN 20 MG TAB PO SCH (20:08)
[2017-03-25] MEDS: RANITIDINE HCL 150 MG TAB PO SCH (20:09)
[2017-03-25] MEDS: ROPINIROLE HCL 0.25 MG TAB PO SCH (20:10)
[2017-03-25] MEDS: AMITRIPTYLINE HCL 10 MG TAB PO SCH (20:11)
[2017-03-26] VITALS (10 sets, daily range): BP systolic 151–170; BP diastolic 55–97; PULSE 69–84; TEMP 36.4–37.1; O2SAT 91–97
[2017-03-26] MEDS: ALBUT/IPRATROP 3MG/0.5MG NEB 3 ML VIAL INH SCH ×4 (02:09→20:29)
[2017-03-26] MEDS: AMPICILLIN/SULBACTAM SOD INJ 3,000 MG in SODIUM CHLORIDE 0.9% 100ML 100 ML IV SCH ×4 (04:30→21:45)
[2017-03-26 06:34] LABS: MEAN CELL VOLUME 109.3 fL (80-100); MEAN CORPUSCULAR HEMOGLOBIN 38.1 pg (25-34); MEAN CORPUSCULAR HGB CONC 34.8 g/dl (32-36); MEAN PLATELET VOLUME 8.7 fL (7.4-10.4); PLATELET COUNT 135 K/uL (130-400); RED BLOOD COUNT 2.47 M/uL (4.2-5.4); WHITE BLOOD COUNT 4.01 K/uL (4.8-10.8)
[2017-03-26 07:00] LABS: BUN/CREATININE RATIO 13.4 (10-20); CALCIUM 7.9 mg/dl (8.5-10.1); CREATININE 0.48 mg/dl (0.60-1.20); POTASSIUM 3.4 mmol/L (3.5-5.1)
[2017-03-26] MEDS: DORNASE ALFA (2500U) 2.5MG/2.5ML INH SCH ×2 (07:12→20:29)
--- NOTE | 2017-03-26 07:41 | DIAGNOSTIC IMAGING REPORT ---
CHEST ONE VIEW PORTABLE CLINICAL HISTORY: Fall. Pneumonia. COMPARISON STUDY: Chest radiograph and chest CT March 23, 2017. FINDINGS: There is no pneumothorax or pleural effusion. Pulmonary vascularity is normal. Cardiomediastinal silhouette is normal. Mild bibasilar opacities persist. IMPRESSION: No significant change in mild bibasilar opacities. Electronically signed by: Neville Wiseman M.D. 03/26/2017 7:39 AM Dictated Date/Time: 03/26/2017 7:38 AM
[2017-03-26] MEDS: OXYCODONE/ACETAMINOPHEN 5-325 TAB PO PRN ×3 (08:24→23:53)
[2017-03-26] MEDS: PHENYTOIN SODIUM ER 100 MG CAP PO SCH ×2 (08:25→20:23)
[2017-03-26] MEDS: DOCUSATE SODIUM 100 MG CAP PO SCH ×2 (08:25→20:25)
[2017-03-26] MEDS: CALCIUM 600MG + VIT D 400 IU TAB PO SCH (08:25)
[2017-03-26] MEDS: SENNA 8.6 MG TAB PO SCH (08:25)
[2017-03-26] MEDS: ASCORBIC ACID 500 MG TAB PO SCH (08:25)
[2017-03-26] MEDS: CYANOCOBALAMIN 500 MCG TAB (VIT B-12) PO SCH (08:25)
[2017-03-26] MEDS: FERROUS SULFATE 325 MG TAB PO SCH (08:25)
[2017-03-26] MEDS: FLUTICASONE PROPIONATE NA SPR 16 GM BTL NAE SCH (08:26)
[2017-03-26] MEDS: CHOLECALCIFEROL 1000 INTER.UNIT TAB PO SCH (08:26)
[2017-03-26] MEDS: MULTIVITAMIN TAB PO SCH (08:26)
[2017-03-26] MEDS ORDERED: POTASSIUM CHLORIDE PWD 20 MEQ PACK PO ONE (09:45)
--- NOTE | 2017-03-26 15:28 | Neurology Progress Notes ---
Neurology Progress Note Date of Service March 26, 2017. Subjective 76 year old female who presents to the ER after a fall. Patient reports that around 0100 she had gone to the bathroom. When she tried to get up from the toilet, she reports she felt lightheaded and dizzy and fell forward hitting her head off of the clothes hamper. She was admitted to the hospital last year and was found to have aspiration. She reports she has not been following aspirations precautions. She was treated with IV antibiotics. She states she is doing better today. She is sitting and eating currently. denies CP, SOB, abdominal pain, one sided weakness, numbness, tingling, N, V. Objective Date Time Temp Pulse Resp B/P Pulse Ox O2 Delivery O2 Flow Rate FiO2 03/26/17 15:10 37.1 79 16 155/57 92 Room Air 03/26/17 14:23 84 16 94 Room Air 03/26/17 12:00 Room Air 03/26/17 11:25 36.6 69 16 167/68 95 Room Air 157/55 03/26/17 08:30 Room Air 03/26/17 07:27 36.4 71 20 161/97 97 Room Air 03/26/17 07:12 72 16 96 Room Air 03/26/17 04:00 36.6 70 18 170/95 94 Room Air 03/26/17 04:00 92 Room Air 03/26/17 00:00 92 Room Air 03/25/17 23:15 36.8 77 18 166/68 95 Room Air 03/25/17 20:00 92 Room Air 03/25/17 19:15 78 18 92 Room Air 03/25/17 19:00 77 18 175/71 92 Room Air 03/25/17 15:45 Room Air 03/25/17 15:24 36.5 77 15 126/68 93 Room Air Last 24 Hours Test 03/26/17 06:11 White Blood Count 4.01 K/uL Red Blood Count 2.47 M/uL Hemoglobin 9.4 g/dL Hematocrit 27.0 % Mean Corpuscular Volume 109.3 fL Mean Corpuscular Hemoglobin 38.1 pg Mean Corpuscular Hemoglobin Concent 34.8 g/dl RDW Standard Deviation 56.7 fL RDW Coefficient of Variation 14.3 % Platelet Count 135 K/uL Mean Platelet Volume 8.7 fL Sodium Level 144 mmol/L Potassium Level 3.4 mmol/L Chloride Level 110 mmol/L Carbon Dioxide Level 27 mmol/L Anion Gap 7.0 mmol/L Blood Urea Nitrogen 6 mg/dl Creatinine 0.48 mg/dl Est Creatinine Clear Calc Drug Dose 59.5 ml/min Estimated GFR () 109.7 Estimated GFR (Non- 94.6 BUN/Creatinine Ratio 13.4 Random Glucose 95 mg/dl Calcium Level 7.9 mg/dl Imaging: no new image Exam: Physical Exam: Constitutional: pale, thin, Ears, Nose, Mouth and Throat: mucous membranes moist, no injection and skin normal, eyes normal Cardiovascular: normal S-1 and S-2 and regular rate and rhythm Respiratory: course breath sounds Musculoskeletal: no peripheral edema Skin: no stigmata of neurocutaneous disease noted and normal and intact Eyes: extraocular muscles intact (EOMI) and pupils equal, round and reactive to light (PERRL) NEUROLOGIC EXAMINATION: Mental status: Alert and interactive Oriented to full date and location Oriented to person Speech fluent with no evidence of aphasia Cranial Nerves smile symmetric, tongue midline Reflexes: would not allow testing Sensory: intact to vibration, yelled with manipulation of GT Coordination: finger to nose with reaching tremor Gait/Stance: sitting in bed Motor: Negative for pronator drift of out stretched arms with eyes closed. Strength: hand contracts intern and biceps 5/5, hip flex 5/5 bilaterally would not allow any further exam Current Inpatient Medications Medications (Trade) Dose Ordered Sig/Maris Route Start Time Stop Time Status Last Admin Dose Admin Acetaminophen (Tylenol Tab) 650 mg Q4H PRN PO 03/23/17 19:00 04/22/17 18:59 Ondansetron HCl 4 mg 4 mg Q6H PRN IV 03/23/17 19:00 04/22/17 18:59 03/24/17 11:39 4 MG Ampicillin Sodium/ Sulbactam Sodium/ Sodium Chloride (Unasyn Inj/Nss 100ml) 108 ml @ 200 mls/hr Q6H IV 03/24/17 02:00 03/31/17 01:59 03/26/17 10:30 200 MLS/HR Oxycodone/ Acetaminophen (Percocet 5-325mg Tab) 1 tab Q6H PRN PO 03/23/17 19:15 04/06/17 19:14 03/26/17 08:24 1 TAB Albuterol/ Ipratropium (Duoneb) 3 ml Q6R INH 03/23/17 21:00 04/22/17 20:59 03/26/17 14:23 3 ML Amitriptyline HCl (Elavil Tab) 35 mg HS PO 03/23/17 21:00 04/22/17 20:59 03/25/17 20:11 35 MG Ascorbic Acid (Vitamin C Tab) 500 mg DAILY PO 03/24/17 09:00 04/23/17 08:59 03/26/17 08:25 500 MG Cyanocobalamin (Vitamin B-12 Tab) 1,000 mcg DAILY PO 03/24/17 09:00 04/23/17 08:59 03/26/17 08:25 1,000 MCG Docusate Sodium (coLACE CAP) 100 mg BID PO 03/23/17 21:00 04/22/17 20:59 03/26/17 08:25 100 MG Ferrous Sulfate (Feosol Tab) 325 mg QAM PO 03/24/17 09:00 04/23/17 08:59 03/26/17 08:25 325 MG Fluticasone Propionate (Flonase Nasal [place]) 1 sprays DAILY FRANCK 03/24/17 09:00 04/23/17 08:59 03/26/17 08:26 1 SPRAYS Multivitamins (Multivitamin Tab) 1 tab DAILY PO 03/24/17 09:00 04/23/17 08:59 03/26/17 08:26 1 TAB Phenytoin Sodium (Dilantin Er Cap) 100 mg HS PO 03/23/17 21:00 04/22/17 20:59 03/25/17 20:10 100 MG Phenytoin Sodium (Dilantin Er Cap) 200 mg DAILY PO 03/24/17 09:00 04/23/17 08:59 03/26/17 08:25 200 MG Prednisone (PredniSONE TAB) 5 mg HS PO 03/23/17 21:00 04/22/17 20:59 03/25/17 20:11 5 MG Ranitidine HCl (zANTac TAB) 150 mg HS PO 03/23/17 21:00 04/22/17 20:59 03/25/17 20:09 150 MG Ropinirole HCl (Requip Tab) 0.25 mg HS PO 03/23/17 21:00 04/22/17 20:59 03/25/17 20:10 0.25 MG Senna (Senokot Tab) 8.6 mg DAILY PO 03/24/17 09:00 04/23/17 08:59 03/26/17 08:25 8.6 MG Simvastatin (Zocor Tab) 20 mg HS PO 03/23/17 21:00 04/22/17 20:59 03/25/17 20:08 20 MG Calcium/Vitamin D (Caltrate Plus Tab) 1 tab QAM PO 03/24/17 09:00 04/23/17 08:59 03/26/17 08:25 1 TAB Cholecalciferol (Vitamin D Tab) 5,000 inter.unit DAILY PO 03/24/17 09:00 04/23/17 08:59 03/26/17 08:26 5,000 INTER.UNIT Miscellaneous Information (Order Awaiting Action) 1 ea QS N/A 03/24/17 00:00 04/23/17 00:00 Dornase Bennett (Pulmozyme Inhalation Soln 2.5ml Amp) 2.5 ml BID INH 03/24/17 21:00 03/27/17 20:59 03/26/17 07:12 2.5 ML Impression 76 year old female with fall at home aspiration pneumonia Plan 1. continue to monitor 2. IV antibiotics for resolve of pneumonia 3. seizure disorder -continue dilantin home dosing at this point. level was therapeutic on admission 16. 3 4. gait dysfunction likely caused by chronic EtOH use which she states she has not drank for years 5. fall and seizure precautions 6. no dyskinesia on exam however patient is not overly cooperative. 7. will continue to follow I have seen and discussed above patient with Dr Hyun Lin, neurology Pt seen and examined more alert, no flap, mild tremor on intention. Will ambulate pt as she improves to see what component of her gait is cerebellar vs neuropathy and make a decision regarding potentially changing from dilantin to Keppra to minimize med side effect. Of course that will not change cerebellar ataxia most likely related to chronic etoh use or neuropathy. Will follow with you, HI Lin MD
--- NOTE | 2017-03-26 16:20 | Pulmonology Progress Note ---
Pulmonary Progress Note Date of Service March 26, 2017. Attending Dr. Ashton Subjective Reports she is generally feeling well with generalized MSK discomfort. Reports cough is persistent but chronic and typically productive although she has been unable to expectorate sputum. Denies using the VEST. Denies any increase dyspnea or wheeze. Expressed disinterest with thickened liquids. Objective 76-yo female admitted to [facility] 03/23/17 s/p unwitnessed fall and AMS. Prior records were reviewed. PMHx includes: h/o epilepsy, h/o aspiration (video swallow 01/2016 - non-compliant with recommendations), HLD, anemia, RA on 5mg prednisone daily, gait dysfunction, RLS, h/o tobacco use and pulmonary emphysema ([employer] Spiriva and Ventolin). Patient admitted through the [facility] ER post unwitnessed fall in her home. History notable for preceding symptoms of cough, weakness and dyspnea. W/U included CT and MRI of the head (no acute changes, noted moderate cerebellar atrophy and chronic mild small vessel changes with ischemic focus of the right estela) as well as radiographs of the back and neck (no acute changes). Chest x-ray 03/23: advanced emphysema with ? 1.5cm left basilar lesion and patchy densities on the right base. Of note: ammonia level elevated. AGB: CO2: 46. Drug screen: negative. CT Chest: RLL opacification with interstitial thickening. Mild mediastinal adenopathy and pulmonary emphysema. Left basilar nodule was not detected. VQ scan 03/26: low probability of PE She was treated with azithromycin and Unasyn with suspected aspiration pneumonia /pneumonitis as well as with pulmonary toilet (VEST attempted + Pulmozyme) and Q6-hour Duo-nebs. Today: - O2: 92-97% - RA - Hypertensive, afebrile - Wt: 38.4kg - K: 3.4, Cr: 0.48 - CXR: unchanged from prior Physical Exam: Constitutional: Cachectic elderly female lying in bed playing hand-held video game. Head: + facial symmetry Eyes: Dysconjugate gaze with opacification of the right pupil. No conjunctival injection Mouth: Moist mucous membranes. No erythema, exudate, or post nasal gtt Neck: Trachea midline. No adenopathy or masses Respiratory: Non-labored respirations.Scant rales left base. No wheeze. Good air movement throughout. Cardiovascular: Regular rate. Occasional added beat. Warm and perfused peripherally. +2 radial pulses. <1s capillary refill. Abdomen: soft, protuberant, active bowel sounds Integumentary: no rashes, or ecchymosis MSK/Extremities: Moving and developed symmetrically. trace bilateral edema. No erythema or calf tenderness. Neurologic: A&O, data recall in-tact. Appropriate affect. Assessment & Plan 76-yo female presents with pulmonary emphysema and suspected recurrent aspiration pneumonia/pneumonitis: 1. Continue pulmonary toilet and aspiration precautions as able - complete 10- days of antibiotic 2. Clinically doing well - would re-introduce Spiriva tomorrow (order placed) 3. Will need updated CXR in 6-weeks for infiltrate resolution as well as PFTs as an outpatient Patient's case reviewed and plan agreed with. Data Medications: Current Inpatient Medications Medications (Trade) Dose Ordered Sig/Maris Route Start Time Stop Time Status Last Admin Dose Admin Acetaminophen (Tylenol Tab) 650 mg Q4H PRN PO 03/23/17 19:00 04/22/17 18:59 Ondansetron HCl 4 mg 4 mg Q6H PRN IV 03/23/17 19:00 04/22/17 18:59 03/24/17 11:39 4 MG Ampicillin Sodium/ Sulbactam Sodium/ Sodium Chloride (Unasyn Inj/Nss 100ml) 108 ml @ 200 mls/hr Q6H IV 03/24/17 02:00 03/31/17 01:59 03/26/17 10:30 200 MLS/HR Oxycodone/ Acetaminophen (Percocet 5-325mg Tab) 1 tab Q6H PRN PO 03/23/17 19:15 04/06/17 19:14 03/26/17 08:24 1 TAB Albuterol/ Ipratropium (Duoneb) 3 ml Q6R INH 03/23/17 21:00 04/22/17 20:59 03/26/17 14:23 3 ML Amitriptyline HCl (Elavil Tab) 35 mg HS PO 03/23/17 21:00 04/22/17 20:59 03/25/17 20:11 35 MG Ascorbic Acid (Vitamin C Tab) 500 mg DAILY PO 03/24/17 09:00 04/23/17 08:59 03/26/17 08:25 500 MG Cyanocobalamin (Vitamin B-12 Tab) 1,000 mcg DAILY PO 03/24/17 09:00 04/23/17 08:59 03/26/17 08:25 1,000 MCG Docusate Sodium (coLACE CAP) 100 mg BID PO 03/23/17 21:00 04/22/17 20:59 03/26/17 08:25 100 MG Ferrous Sulfate (Feosol Tab) 325 mg QAM PO 03/24/17 09:00 04/23/17 08:59 03/26/17 08:25 325 MG Fluticasone Propionate (Flonase Nasal [place]) 1 sprays DAILY FRANCK 03/24/17 09:00 04/23/17 08:59 03/26/17 08:26 1 SPRAYS Multivitamins (Multivitamin Tab) 1 tab DAILY PO 03/24/17 09:00 04/23/17 08:59 03/26/17 08:26 1 TAB Phenytoin Sodium (Dilantin Er Cap) 100 mg HS PO 03/23/17 21:00 04/22/17 20:59 03/25/17 20:10 100 MG Phenytoin Sodium (Dilantin Er Cap) 200 mg DAILY PO 03/24/17 09:00 04/23/17 08:59 03/26/17 08:25 200 MG Prednisone (PredniSONE TAB) 5 mg HS PO 03/23/17 21:00 04/22/17 20:59 03/25/17 20:11 5 MG Ranitidine HCl (zANTac TAB) 150 mg HS PO 03/23/17 21:00 04/22/17 20:59 03/25/17 20:09 150 MG Ropinirole HCl (Requip Tab) 0.25 mg HS PO 03/23/17 21:00 04/22/17 20:59 03/25/17 20:10 0.25 MG Senna (Senokot Tab) 8.6 mg DAILY PO 03/24/17 09:00 04/23/17 08:59 03/26/17 08:25 8.6 MG Simvastatin (Zocor Tab) 20 mg HS PO 03/23/17 21:00 04/22/17 20:59 03/25/17 20:08 20 MG Calcium/Vitamin D (Caltrate Plus Tab) 1 tab QAM PO 03/24/17 09:00 04/23/17 08:59 03/26/17 08:25 1 TAB Cholecalciferol (Vitamin D Tab) 5,000 inter.unit DAILY PO 03/24/17 09:00 04/23/17 08:59 03/26/17 08:26 5,000 INTER.UNIT Miscellaneous Information (Order Awaiting Action) 1 ea QS N/A 03/24/17 00:00 04/23/17 00:00 Dornase Bennett (Pulmozyme Inhalation Soln 2.5ml Amp) 2.5 ml BID INH 03/24/17 21:00 03/27/17 20:59 03/26/17 07:12 2.5 ML I & O: 24-Hour Column 03/26/17 07:59 Intake Total 450 ml Output Total 1050 ml Balance -600 ml Vital Signs: Date Time Temp Pulse Resp B/P Pulse Ox O2 Delivery O2 Flow Rate FiO2 03/26/17 15:10 37.1 79 16 155/57 92 Room Air 03/26/17 14:23 84 16 94 Room Air 03/26/17 12:00 Room Air 03/26/17 11:25 36.6 69 16 167/68 95 Room Air 157/55 03/26/17 08:30 Room Air 03/26/17 07:27 36.4 71 20 161/97 97 Room Air 03/26/17 07:12 72 16 96 Room Air 03/26/17 04:00 36.6 70 18 170/95 94 Room Air 03/26/17 04:00 92 Room Air 03/26/17 00:00 92 Room Air 03/25/17 23:15 36.8 77 18 166/68 95 Room Air 03/25/17 20:00 92 Room Air 03/25/17 19:15 78 18 92 Room Air 03/25/17 19:00 77 18 175/71 92 Room Air Laboratory Results: Last 24 Hours Test 03/26/17 06:11 White Blood Count 4.01 K/uL Red Blood Count 2.47 M/uL Hemoglobin 9.4 g/dL Hematocrit 27.0 % Mean Corpuscular Volume 109.3 fL Mean Corpuscular Hemoglobin 38.1 pg Mean Corpuscular Hemoglobin Concent 34.8 g/dl RDW Standard Deviation 56.7 fL RDW Coefficient of Variation 14.3 % Platelet Count 135 K/uL Mean Platelet Volume 8.7 fL Sodium Level 144 mmol/L Potassium Level 3.4 mmol/L Chloride Level 110 mmol/L Carbon Dioxide Level 27 mmol/L Anion Gap 7.0 mmol/L Blood Urea Nitrogen 6 mg/dl Creatinine 0.48 mg/dl Est Creatinine Clear Calc Drug Dose 59.5 ml/min Estimated GFR () 109.7 Estimated GFR (Non- 94.6 BUN/Creatinine Ratio 13.4 Random Glucose 95 mg/dl Calcium Level 7.9 mg/dl
--- NOTE | 2017-03-26 17:31 | Progress Note ---
Medicine Progress Note Date & Time of Visit: March 26, 2017 at 17:16. Subjective Pt was seen and examined Sitting in bed very comfortable with no distress Pt looks much better today with no confusion she was very cooperate, follow command she refused to go to rehab she denies any chest pain, palpitation, dizziness and sob Objective Last 8 Hrs Date Time Temp Pulse Resp B/P Pulse Ox O2 Delivery O2 Flow Rate FiO2 03/26/17 16:00 Room Air 03/26/17 15:10 37.1 79 16 155/57 92 Room Air 03/26/17 14:23 84 16 94 Room Air 03/26/17 12:00 Room Air 03/26/17 11:25 36.6 69 16 167/68 95 Room Air 157/55 Physical Exam: General- No acute distress Head- atraumatic Eyes- Ecchymoses in Right orbit, blindness in right eye ENT- oropharynx clear Neck- supple, no JVD Lungs- No wheezing Heart- regular rhythm; no murmur Abdomen- normal bowel sounds, soft Extremities- no calf tenderness Neuro- alert, confused/oriented,no facial palsy Skin- warm & dry Laboratory Results: Last 24 Hours Test 03/26/17 06:11 White Blood Count 4.01 K/uL Red Blood Count 2.47 M/uL Hemoglobin 9.4 g/dL Hematocrit 27.0 % Mean Corpuscular Volume 109.3 fL Mean Corpuscular Hemoglobin 38.1 pg Mean Corpuscular Hemoglobin Concent 34.8 g/dl RDW Standard Deviation 56.7 fL RDW Coefficient of Variation 14.3 % Platelet Count 135 K/uL Mean Platelet Volume 8.7 fL Sodium Level 144 mmol/L Potassium Level 3.4 mmol/L Chloride Level 110 mmol/L Carbon Dioxide Level 27 mmol/L Anion Gap 7.0 mmol/L Blood Urea Nitrogen 6 mg/dl Creatinine 0.48 mg/dl Est Creatinine Clear Calc Drug Dose 59.5 ml/min Estimated GFR () 109.7 Estimated GFR (Non- 94.6 BUN/Creatinine Ratio 13.4 Random Glucose 95 mg/dl Calcium Level 7.9 mg/dl Assessment & Plan GENERALIZED WEAKNESS/ FALLS SYNCOPE VS NEAR SYNCOPE ambulatory dysfunction vs seizure vs orthostatic CT head was negative No arrhythmia noted on tele monitor Consider inpatient rehab she refused to go for inpatient rehab Fall precaution PT/OT PNEUMONIA Possible related to aspiration CT chest showed secretions resulting in opacification of the right lower lobe bronchi with patchy airspace opacities and interstitial thickening at the base of the right lower lobe. Continue abx immunocompromised state with sulfasalazine and chronic prednisone use D/C Azithromycin Continue unasyn Aspiration precaution Continue chest PT, Dornase 03/26 Repeat CXR showed no significant change in mild bibasilar opacities. Continue unasyn Continue monitor closely aspiration precaution Repeat CXR in 6 weeks for follow up the opacities Will need to arrange for PFT as an outpatient Clinically improved significantly ELEVATED D. DIMER Saturated well on 2L, no tachycardia Doppler of LEs negative V/Q scan showed probability for PE Stable HX EPILEPSY continue Dilantin phenytoin level 16 No seizure activity noted seizures precaution Stable ANEMIA chronic, baseline hgb ~ 10 hgb 9.4 continue to monitor POSSIBLE NEUROLOGIC DISORDER Patient has orthostasis, fall, dysphagia, possible movement disorder, unusual affect. possible related to med MRI of the brain showed no evidence for an acute ischemic process. Neuro on board improved RHEUMATOID ARTHRITIS Sulfasalazine on hold due to acute illness On Prednisone Stable COPD asymptomatic Continue neb treatment consider to start on Spiriva tomorrow as per pulmonary TOBACCO ABUSE Counseling on smoking cessation DVT PROPHYLAXIS SCDs and ambulate CODE STATUS FULL CODE DISPOSITION Refused to go to rehab will discharge once medically stable Consultants: Neurology Pulmonary Current Inpatient Medications: Current Inpatient Medications Medications (Trade) Dose Ordered Sig/Maris Route Start Time Stop Time Status Last Admin Dose Admin Acetaminophen (Tylenol Tab) 650 mg Q4H PRN PO 03/23/17 19:00 04/22/17 18:59 Ondansetron HCl 4 mg 4 mg Q6H PRN IV 03/23/17 19:00 04/22/17 18:59 03/24/17 11:39 4 MG Ampicillin Sodium/ Sulbactam Sodium/ Sodium Chloride (Unasyn Inj/Nss 100ml) 108 ml @ 200 mls/hr Q6H IV 03/24/17 02:00 03/31/17 01:59 03/26/17 15:47 200 MLS/HR Oxycodone/ Acetaminophen (Percocet 5-325mg Tab) 1 tab Q6H PRN PO 03/23/17 19:15 04/06/17 19:14 03/26/17 16:38 1 TAB Albuterol/ Ipratropium (Duoneb) 3 ml Q6R INH 03/23/17 21:00 04/22/17 20:59 03/26/17 14:23 3 ML Amitriptyline HCl (Elavil Tab) 35 mg HS PO 03/23/17 21:00 04/22/17 20:59 03/25/17 20:11 35 MG Ascorbic Acid (Vitamin C Tab) 500 mg DAILY PO 03/24/17 09:00 04/23/17 08:59 03/26/17 08:25 500 MG Cyanocobalamin (Vitamin B-12 Tab) 1,000 mcg DAILY PO 03/24/17 09:00 04/23/17 08:59 03/26/17 08:25 1,000 MCG Docusate Sodium (coLACE CAP) 100 mg BID PO 03/23/17 21:00 04/22/17 20:59 03/26/17 08:25 100 MG Ferrous Sulfate (Feosol Tab) 325 mg QAM PO 03/24/17 09:00 04/23/17 08:59 03/26/17 08:25 325 MG Fluticasone Propionate (Flonase Nasal [place]) 1 sprays DAILY FRANCK 03/24/17 09:00 04/23/17 08:59 03/26/17 08:26 1 SPRAYS Multivitamins (Multivitamin Tab) 1 tab DAILY PO 03/24/17 09:00 04/23/17 08:59 03/26/17 08:26 1 TAB Phenytoin Sodium (Dilantin Er Cap) 100 mg HS PO 03/23/17 21:00 04/22/17 20:59 03/25/17 20:10 100 MG Phenytoin Sodium (Dilantin Er Cap) 200 mg DAILY PO 03/24/17 09:00 04/23/17 08:59 03/26/17 08:25 200 MG Prednisone (PredniSONE TAB) 5 mg HS PO 03/23/17 21:00 04/22/17 20:59 03/25/17 20:11 5 MG Ranitidine HCl (zANTac TAB) 150 mg HS PO 03/23/17 21:00 04/22/17 20:59 03/25/17 20:09 150 MG Ropinirole HCl (Requip Tab) 0.25 mg HS PO 03/23/17 21:00 04/22/17 20:59 03/25/17 20:10 0.25 MG Senna (Senokot Tab) 8.6 mg DAILY PO 03/24/17 09:00 04/23/17 08:59 03/26/17 08:25 8.6 MG Simvastatin (Zocor Tab) 20 mg HS PO 03/23/17 21:00 04/22/17 20:59 03/25/17 20:08 20 MG Calcium/Vitamin D (Caltrate Plus Tab) 1 tab QAM PO 03/24/17 09:00 04/23/17 08:59 03/26/17 08:25 1 TAB Cholecalciferol (Vitamin D Tab) 5,000 inter.unit DAILY PO 03/24/17 09:00 04/23/17 08:59 03/26/17 08:26 5,000 INTER.UNIT Miscellaneous Information (Order Awaiting Action) 1 ea QS N/A 03/24/17 00:00 04/23/17 00:00 Dornase [place] (Pulmozyme Inhalation Soln 2.5ml Amp) 2.5 ml BID INH 03/24/17 21:00 03/27/17 20:59 03/26/17 07:12 2.5 ML Tiotropium [place] (Spiriva Handihaler Inhaler) 1 puff QAM INH 03/27/17 09:00 04/26/17 08:59
[2017-03-26] MEDS: AMITRIPTYLINE HCL 10 MG TAB PO SCH (20:21)
[2017-03-26] MEDS: SIMVASTATIN 20 MG TAB PO SCH (20:23)
[2017-03-26] MEDS: ROPINIROLE HCL 0.25 MG TAB PO SCH (20:24)
[2017-03-26] MEDS: RANITIDINE HCL 150 MG TAB PO SCH (20:24)
[2017-03-26] MEDS: ONDANSETRON INJ 2 MG/ML 2 ML VIAL IV PRN (21:48)
[2017-03-27] VITALS (7 sets, daily range): BP systolic 143–194; BP diastolic 53–83; PULSE 69–84; TEMP 36.8; O2SAT 94–97
[2017-03-27] MEDS: ALBUT/IPRATROP 3MG/0.5MG NEB 3 ML VIAL INH SCH ×4 (01:33→18:52)
[2017-03-27] MEDS: AMPICILLIN/SULBACTAM SOD INJ 3,000 MG in SODIUM CHLORIDE 0.9% 100ML 100 ML IV SCH ×3 (03:59→16:00)
[2017-03-27] MEDS: DORNASE ALFA (2500U) 2.5MG/2.5ML INH SCH (07:09)
[2017-03-27 08:19] LABS: BUN/CREATININE RATIO 8.4 (10-20); CREATININE 0.61 mg/dl (0.60-1.20); POTASSIUM 3.7 mmol/L (3.5-5.1)
[2017-03-27] MEDS: CYANOCOBALAMIN 500 MCG TAB (VIT B-12) PO SCH (08:25)
[2017-03-27] MEDS: MULTIVITAMIN TAB PO SCH (08:25)
[2017-03-27] MEDS: CALCIUM 600MG + VIT D 400 IU TAB PO SCH (08:25)
[2017-03-27] MEDS: DOCUSATE SODIUM 100 MG CAP PO SCH ×2 (08:25→21:49)
[2017-03-27] MEDS: FERROUS SULFATE 325 MG TAB PO SCH (08:25)
[2017-03-27] MEDS: ASCORBIC ACID 500 MG TAB PO SCH (08:25)
[2017-03-27 08:26] LABS: CALCIUM 8.5 mg/dl (8.5-10.1)
[2017-03-27] MEDS: CHOLECALCIFEROL 1000 INTER.UNIT TAB PO SCH (08:26)
[2017-03-27] MEDS: SENNA 8.6 MG TAB PO SCH (08:26)
[2017-03-27] MEDS: PHENYTOIN SODIUM ER 100 MG CAP PO SCH ×2 (08:26→21:49)
[2017-03-27] MEDS: FLUTICASONE PROPIONATE NA SPR 16 GM BTL NAE SCH (08:29)
[2017-03-27] MEDS: TIOTROPIUM BROMIDE 5 PUFF/90 MCG INH INH SCH (08:30)
[2017-03-27] MEDS: OXYCODONE/ACETAMINOPHEN 5-325 TAB PO PRN ×3 (10:03→21:47)
--- NOTE | 2017-03-27 14:51 | Neurology Progress Notes ---
Neurology Progress Note Date of Service March 27, 2017. Johnathan Diaz is a 76 year old female who has a H seizure disorder, RA, anemia of chronic disease, neuropathy presents to the ER after a fall. Patient reports that around 0100 she had gone to the bathroom. When she tried to get up from the toilet, she reports she felt lightheaded and dizzy and fell forward hitting her head off of the clothes hamper. She was admitted to the hospital last year and was found to have aspiration. She reports she has not been following aspirations precautions. She was treated with IV antibiotics. She states she is doing fine. She states the her medications are all messed up and she is not getting the right medications. denies CP, SOB, abdominal pain, one sided weakness, numbness, tingling, N, V. She has a history of EtOH abuse and tobacco abuse. Objective Date Time Temp Pulse Resp B/P Pulse Ox O2 Delivery O2 Flow Rate FiO2 03/27/17 14:05 84 16 95 Room Air 97 03/27/17 12:00 Room Air 03/27/17 08:00 Room Air 03/27/17 07:08 69 16 95 Room Air 03/27/17 04:00 Room Air 03/27/17 00:00 Room Air 03/26/17 23:57 36.7 74 18 160/67 91 Room Air 03/26/17 20:29 76 16 95 Room Air 03/26/17 20:00 Room Air 03/26/17 19:03 36.9 76 20 151/75 95 Room Air 03/26/17 16:00 Room Air 03/26/17 15:10 37.1 79 16 155/57 92 Room Air Last 24 Hours Test 03/27/17 07:30 Sodium Level 140 mmol/L Potassium Level 3.7 mmol/L Chloride Level 107 mmol/L Carbon Dioxide Level 25 mmol/L Anion Gap 8.0 mmol/L Blood Urea Nitrogen 5 mg/dl Creatinine 0.61 mg/dl Est Creatinine Clear Calc Drug Dose 43.8 ml/min Estimated GFR () 101.3 Estimated GFR (Non- 87.4 BUN/Creatinine Ratio 8.4 Random Glucose 87 mg/dl Calcium Level 8.5 mg/dl Imaging: no new imaging Exam: Physical Exam: Constitutional: thin weak pale Ears, Nose, Mouth and Throat: mucous membranes moist, no injection and skin normal, eyes normal Cardiovascular: normal S-1 and S-2 and regular rate and rhythm Respiratory:course breath sounds Musculoskeletal: no peripheral edema Skin: no stigmata of neurocutaneous disease noted and normal and intact, right eye with ecchymosis Eyes: extraocular muscles intact (EOMI) and pupils equal, round and reactive to light (PERRL), blind (right) NEUROLOGIC EXAMINATION: Mental status: Alert and interactive Oriented she thinks she is in the [facility] and gets mad when corrected Oriented to person Speech fluent with no evidence of aphasia Cranial Nerves smile eye brow raise symmetric Coordination: finger to nose with no bi pass, essential tremor with reach Gait/Stance: Posture lying in bed Motor: Negative for pronator drift of out stretched arms with eyes closed. 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, hip flex 5/5 bilaterally Current Inpatient Medications Medications (Trade) Dose Ordered Sig/Maris Route Start Time Stop Time Status Last Admin Dose Admin Acetaminophen (Tylenol Tab) 650 mg Q4H PRN PO 03/23/17 19:00 04/22/17 18:59 Ondansetron HCl 4 mg 4 mg Q6H PRN IV 03/23/17 19:00 04/22/17 18:59 03/26/17 21:48 4 MG Ampicillin Sodium/ Sulbactam Sodium/ Sodium Chloride (Unasyn Inj/Nss 100ml) 108 ml @ 200 mls/hr Q6H IV 03/24/17 02:00 03/31/17 01:59 03/27/17 10:25 200 MLS/HR Oxycodone/ Acetaminophen (Percocet 5-325mg Tab) 1 tab Q6H PRN PO 03/23/17 19:15 04/06/17 19:14 03/27/17 10:03 1 TAB Albuterol/ Ipratropium (Duoneb) 3 ml Q6R INH 03/23/17 21:00 04/22/17 20:59 03/27/17 14:11 3 ML Amitriptyline HCl (Elavil Tab) 35 mg HS PO 03/23/17 21:00 04/22/17 20:59 03/26/17 20:21 35 MG Ascorbic Acid (Vitamin C Tab) 500 mg DAILY PO 03/24/17 09:00 04/23/17 08:59 03/27/17 08:25 500 MG Cyanocobalamin (Vitamin B-12 Tab) 1,000 mcg DAILY PO 03/24/17 09:00 04/23/17 08:59 03/27/17 08:25 1,000 MCG Docusate Sodium (coLACE CAP) 100 mg BID PO 03/23/17 21:00 04/22/17 20:59 03/27/17 08:25 100 MG Ferrous Sulfate (Feosol Tab) 325 mg QAM PO 03/24/17 09:00 04/23/17 08:59 03/27/17 08:25 325 MG Fluticasone Propionate (Flonase Nasal [place]) 1 sprays DAILY FRANCK 03/24/17 09:00 04/23/17 08:59 03/27/17 08:29 1 SPRAYS Multivitamins (Multivitamin Tab) 1 tab DAILY PO 03/24/17 09:00 04/23/17 08:59 03/27/17 08:25 1 TAB Phenytoin Sodium (Dilantin Er Cap) 100 mg HS PO 03/23/17 21:00 04/22/17 20:59 03/26/17 20:23 100 MG Phenytoin Sodium (Dilantin Er Cap) 200 mg DAILY PO 03/24/17 09:00 04/23/17 08:59 03/27/17 08:26 200 MG Prednisone (PredniSONE TAB) 5 mg HS PO 03/23/17 21:00 04/22/17 20:59 03/26/17 20:25 5 MG Ranitidine HCl (zANTac TAB) 150 mg HS PO 03/23/17 21:00 04/22/17 20:59 03/26/17 20:24 150 MG Ropinirole HCl (Requip Tab) 0.25 mg HS PO 03/23/17 21:00 04/22/17 20:59 03/26/17 20:24 0.25 MG Senna (Senokot Tab) 8.6 mg DAILY PO 03/24/17 09:00 04/23/17 08:59 03/27/17 08:26 8.6 MG Simvastatin (Zocor Tab) 20 mg HS PO 03/23/17 21:00 04/22/17 20:59 03/26/17 20:23 20 MG Calcium/Vitamin D (Caltrate Plus Tab) 1 tab QAM PO 03/24/17 09:00 04/23/17 08:59 03/27/17 08:25 1 TAB Cholecalciferol (Vitamin D Tab) 5,000 inter.unit DAILY PO 03/24/17 09:00 04/23/17 08:59 03/27/17 08:26 5,000 INTER.UNIT Miscellaneous Information (Order Awaiting Action) 1 ea QS N/A 03/24/17 00:00 04/23/17 00:00 Dornase [place] (Pulmozyme Inhalation Soln 2.5ml Amp) 2.5 ml BID INH 03/24/17 21:00 03/27/17 20:59 03/27/17 07:09 2.5 ML Tiotropium [place] (Spiriva Handihaler Inhaler) 1 puff QAM INH 03/27/17 09:00 04/26/17 08:59 03/27/17 08:30 1 PUFF Impression 76 year old female with fall at home aspiration pneumonia Plan 1. continue to monitor 2. IV antibiotics for resolve of pneumonia lost IV access will continue orally if no access is obtained 3. seizure disorder -continue dilantin home dosing at this point. level was therapeutic on admission 16. 3 4. gait dysfunction likely caused by chronic EtOH use which she states she has not drank for years 5. fall and seizure precautions 6. no dyskinesia on exam however patient is not overly cooperative. 7. will continue to follow I have seen and discussed above patient with Dr Hyun Lin, neurology Pt seen and examined. REquesting muscle relaxer be restarted. Alert, mildly irritated. mild dystaxia on heel to [place]. Present vibration at toes, query mid calf level to temp. Gait mildly widebased. Tremor on intention. Imp. Essential tremor. Polyfactorial gait dysfunction related to neuropathy (alcohol related?) and cerebellar degen (ETOH, dilantin). Will continue to monitor and consider adding Keppra once therapeutic tapering dilantin over 1 month. I am concerned abt doing so given the pt lives alone, falls, etc. Pt should have a nerve conduction EMG with me as an outpt. HI Lin MD
[2017-03-27] MEDS ORDERED: AMOXICILLIN/CLAVULANATE TAB 875 MG TAB PO ONE (18:27)
--- NOTE | 2017-03-27 18:42 | Progress Note ---
Medicine Progress Note Date & Time of Visit: March 27, 2017 at 18:28. Subjective Pt was seen and examined sitting in bed with no distress Pt said that she in pain everywhere because she did not get her muscles relaxant Pt continue to refuse to go to rehab Pt said that she lives alone her gait is unsteady and she is not safe to return home now Denies any chest pain, palpitation and SOB Objective Last 8 Hrs Date Time Temp Pulse Resp B/P Pulse Ox O2 Delivery O2 Flow Rate FiO2 03/27/17 16:00 Room Air 03/27/17 15:19 36.8 80 18 143/53 97 Room Air 03/27/17 14:05 84 16 95 Room Air 97 03/27/17 12:00 Room Air Physical Exam: General- No acute distress Head- atraumatic Eyes- Ecchymoses in Right orbit fading away, blindness in right eye ENT- oropharynx clear Neck- supple, no JVD Lungs- No wheezing Heart- regular rhythm; no murmur Abdomen- normal bowel sounds, soft Extremities- no calf tenderness Neuro- alert,oriented,no facial palsy, follow command Skin- warm & dry Laboratory Results: Last 24 Hours Test 03/27/17 07:30 Sodium Level 140 mmol/L Potassium Level 3.7 mmol/L Chloride Level 107 mmol/L Carbon Dioxide Level 25 mmol/L Anion Gap 8.0 mmol/L Blood Urea Nitrogen 5 mg/dl Creatinine 0.61 mg/dl Est Creatinine Clear Calc Drug Dose 43.8 ml/min Estimated GFR () 101.3 Estimated GFR (Non- 87.4 BUN/Creatinine Ratio 8.4 Random Glucose 87 mg/dl Calcium Level 8.5 mg/dl Assessment & Plan GENERALIZED WEAKNESS/ FALLS SYNCOPE VS NEAR SYNCOPE ambulatory dysfunction vs seizure vs orthostatic CT head was negative No arrhythmia noted on tele monitor continue PT/OT As per physical therapist her gait is unstable and would be unsafe to return home alone at this time. Continue refusing to go for inpatient rehab Tried to call her daughter Agus @ [phone] with no answered. Left voicemail manager case awared Fall precaution PNEUMONIA Possible related to aspiration CT chest showed secretions resulting in opacification of the right lower lobe bronchi with patchy airspace opacities and interstitial thickening at the base of the right lower lobe. Continue abx immunocompromised state with sulfasalazine and chronic prednisone use D/C Azithromycin Continue unasyn Aspiration precaution Continue chest PT, Dornase 03/27 Repeat CXR showed no significant change in mild bibasilar opacities. Unasyn changed to augmentin Continue monitor closely aspiration precaution Repeat CXR in 6 weeks for follow up the opacities Will need to arrange for PFT as an outpatient Clinically improved significantly ELEVATED D. DIMER Saturated well on 2L, no tachycardia Doppler of LEs negative V/Q scan showed probability for PE Stable HX EPILEPSY continue Dilantin phenytoin level 16 No seizure activity noted seizures precaution Stable ANEMIA chronic, baseline hgb ~ 10 hgb 9.4 continue to monitor POSSIBLE NEUROLOGIC DISORDER Patient has orthostasis, fall, dysphagia, possible movement disorder, unusual affect. possible related to med MRI of the brain showed no evidence for an acute ischemic process. Neuro on board, recommended outpt EMG as an outpatient improved RHEUMATOID ARTHRITIS Sulfasalazine on hold due to acute illness On Prednisone Stable COPD asymptomatic Continue neb treatment consider to start on Spiriva tomorrow as per pulmonary TOBACCO ABUSE Counseling on smoking cessation DVT PROPHYLAXIS SCDs and ambulate CODE STATUS FULL CODE DISPOSITION Refused to go to rehab called daughter Agus @ [phone] witn no answer Consultants: Neurology Pulmonary Current Inpatient Medications: Current Inpatient Medications Medications (Trade) Dose Ordered Sig/Maris Route Start Time Stop Time Status Last Admin Dose Admin Acetaminophen (Tylenol Tab) 650 mg Q4H PRN PO 03/23/17 19:00 04/22/17 18:59 Ondansetron HCl 4 mg 4 mg Q6H PRN IV 03/23/17 19:00 04/22/17 18:59 03/26/17 21:48 4 MG Ampicillin Sodium/ Sulbactam Sodium/ Sodium Chloride (Unasyn Inj/Nss 100ml) 108 ml @ 200 mls/hr Q6H IV 03/24/17 02:00 03/31/17 01:59 03/27/17 10:25 200 MLS/HR Oxycodone/ Acetaminophen (Percocet 5-325mg Tab) 1 tab Q6H PRN PO 03/23/17 19:15 04/06/17 19:14 03/27/17 16:01 1 TAB Albuterol/ Ipratropium (Duoneb) 3 ml Q6R INH 03/23/17 21:00 04/22/17 20:59 03/27/17 14:11 3 ML Amitriptyline HCl (Elavil Tab) 35 mg HS PO 03/23/17 21:00 04/22/17 20:59 03/26/17 20:21 35 MG Ascorbic Acid (Vitamin C Tab) 500 mg DAILY PO 03/24/17 09:00 04/23/17 08:59 03/27/17 08:25 500 MG Cyanocobalamin (Vitamin B-12 Tab) 1,000 mcg DAILY PO 03/24/17 09:00 04/23/17 08:59 03/27/17 08:25 1,000 MCG Docusate Sodium (coLACE CAP) 100 mg BID PO 03/23/17 21:00 04/22/17 20:59 03/27/17 08:25 100 MG Ferrous Sulfate (Feosol Tab) 325 mg QAM PO 03/24/17 09:00 04/23/17 08:59 03/27/17 08:25 325 MG Fluticasone Propionate (Flonase Nasal [place]) 1 sprays DAILY FRANCK 03/24/17 09:00 04/23/17 08:59 03/27/17 08:29 1 SPRAYS Multivitamins (Multivitamin Tab) 1 tab DAILY PO 03/24/17 09:00 04/23/17 08:59 03/27/17 08:25 1 TAB Phenytoin Sodium (Dilantin Er Cap) 100 mg HS PO 03/23/17 21:00 04/22/17 20:59 03/26/17 20:23 100 MG Phenytoin Sodium (Dilantin Er Cap) 200 mg DAILY PO 03/24/17 09:00 04/23/17 08:59 03/27/17 08:26 200 MG Prednisone (PredniSONE TAB) 5 mg HS PO 03/23/17 21:00 04/22/17 20:59 03/26/17 20:25 5 MG Ranitidine HCl (zANTac TAB) 150 mg HS PO 03/23/17 21:00 04/22/17 20:59 03/26/17 20:24 150 MG Ropinirole HCl (Requip Tab) 0.25 mg HS PO 03/23/17 21:00 04/22/17 20:59 03/26/17 20:24 0.25 MG Senna (Senokot Tab) 8.6 mg DAILY PO 03/24/17 09:00 04/23/17 08:59 03/27/17 08:26 8.6 MG Simvastatin (Zocor Tab) 20 mg HS PO 03/23/17 21:00 04/22/17 20:59 03/26/17 20:23 20 MG Calcium/Vitamin D (Caltrate Plus Tab) 1 tab QAM PO 03/24/17 09:00 04/23/17 08:59 03/27/17 08:25 1 TAB Cholecalciferol (Vitamin D Tab) 5,000 inter.unit DAILY PO 03/24/17 09:00 04/23/17 08:59 03/27/17 08:26 5,000 INTER.UNIT Miscellaneous Information (Order Awaiting Action) 1 ea QS N/A 03/24/17 00:00 04/23/17 00:00 Dornase [place] (Pulmozyme Inhalation Soln 2.5ml Amp) 2.5 ml BID INH 03/24/17 21:00 03/27/17 20:59 03/27/17 07:09 2.5 ML Tiotropium [place] (Spiriva Handihaler Inhaler) 1 puff QAM INH 03/27/17 09:00 04/26/17 08:59 03/27/17 08:30 1 PUFF
[2017-03-27] MEDS: AMITRIPTYLINE HCL 10 MG TAB PO SCH (21:49)
[2017-03-27] MEDS: RANITIDINE HCL 150 MG TAB PO SCH (21:50)
[2017-03-27] MEDS: ROPINIROLE HCL 0.25 MG TAB PO SCH (21:51)
[2017-03-27] MEDS: SIMVASTATIN 20 MG TAB PO SCH (21:51)
[2017-03-27] MEDS: BACLOFEN 10 MG TAB PO SCH (21:53)
[2017-03-28] VITALS (12 sets, daily range): BP systolic 119–184; BP diastolic 61–75; PULSE 66–97; TEMP 36.6–37.1; O2SAT 90–100
[2017-03-28] MEDS: ALBUT/IPRATROP 3MG/0.5MG NEB 3 ML VIAL INH SCH ×3 (02:13→14:16)
[2017-03-28] MEDS ORDERED: HydrALAZINE HCL 20 MG/ML VIAL IV. PRN (02:30)
[2017-03-28] MEDS ORDERED: CLONIDINE HCL 0.1 MG TAB PO PRN (03:00)
[2017-03-28] MEDS ORDERED: CLONIDINE HCL 0.1 MG TAB PO ONE (04:00)
[2017-03-28] MEDS: ASCORBIC ACID 500 MG TAB PO SCH (07:52)
[2017-03-28] MEDS: DOCUSATE SODIUM 100 MG CAP PO SCH ×2 (07:53→20:56)
[2017-03-28] MEDS: OXYCODONE/ACETAMINOPHEN 5-325 TAB PO PRN ×3 (07:53→23:48)
[2017-03-28] MEDS: CYANOCOBALAMIN 500 MCG TAB (VIT B-12) PO SCH (07:53)
[2017-03-28] MEDS: BACLOFEN 10 MG TAB PO SCH ×2 (07:53→20:54)
[2017-03-28] MEDS: SENNA 8.6 MG TAB PO SCH (07:53)
[2017-03-28] MEDS: PHENYTOIN SODIUM ER 100 MG CAP PO SCH ×2 (08:00→20:56)
[2017-03-28] MEDS: AMOXICILLIN/CLAVULANATE TAB 875 MG TAB PO SCH ×2 (08:00→16:02)
[2017-03-28] MEDS: CALCIUM 600MG + VIT D 400 IU TAB PO SCH (08:00)
[2017-03-28] MEDS: MULTIVITAMIN TAB PO SCH (08:01)
[2017-03-28] MEDS: FLUTICASONE PROPIONATE NA SPR 16 GM BTL NAE SCH (08:01)
[2017-03-28] MEDS: TIOTROPIUM BROMIDE 5 PUFF/90 MCG INH INH SCH (08:01)
[2017-03-28] MEDS: FERROUS SULFATE 325 MG TAB PO SCH (08:01)
[2017-03-28] MEDS: CHOLECALCIFEROL 1000 INTER.UNIT TAB PO SCH (08:01)
--- NOTE | 2017-03-28 14:55 | Neurology Progress Notes ---
Neurology Progress Note Date of Service March 28, 2017. Johnathan Diaz is a 76 year old female who has a H seizure disorder, RA, anemia of chronic disease, neuropathy presents to the ER after a fall. Patient reports that around 0100 she had gone to the bathroom. When she tried to get up from the toilet, she reports she felt lightheaded and dizzy and fell forward hitting her head off of the clothes hamper. She was admitted to the hospital last year and was found to have aspiration. She reports she has not been following aspirations precautions. She was treated with IV antibiotics. She states she feels much better today. She was able to sleep last night and the baclofen is helping some with the muscle spasms she gets in her legs. Her daughter in law is coming in tomorrow to take to the MD about her going to rehab and she doesn' t want to go. She just wants to go home. denies CP, SOB, abdominal pain, one sided weakness, numbness, tingling, N, V. She has a history of EtOH abuse and tobacco abuse. Objective Date Time Temp Pulse Resp B/P Pulse Ox O2 Delivery O2 Flow Rate FiO2 03/28/17 14:16 76 16 94 Room Air 03/28/17 12:30 Room Air 03/28/17 11:34 36.7 81 18 127/64 95 Room Air 03/28/17 08:00 Room Air 03/28/17 07:48 88 18 132/61 92 Room Air 97 123/63 03/28/17 07:25 36.7 84 16 123/67 100 Room Air 03/28/17 07:19 78 16 91 Room Air 03/28/17 04:00 Room Air 03/28/17 03:54 74 143/66 03/28/17 03:46 36.7 74 16 169/75 94 Room Air 03/28/17 00:02 36.7 80 18 184/71 95 Room Air 03/28/17 00:00 Room Air 03/27/17 22:38 168/83 03/27/17 21:54 80 194/62 03/27/17 20:00 Room Air 03/27/17 19:42 36.8 82 18 162/69 97 Room Air 03/27/17 18:52 78 16 94 Room Air 03/27/17 16:00 Room Air 03/27/17 15:19 36.8 80 18 143/53 97 Room Air phenytoin 16.3 Imaging: no new imaging Exam: Physical Exam: Constitutional: appearance frail pale very thin Ears, Nose, Mouth and Throat: mucous membranes moist, no injection and skin normal, eyes normal Cardiovascular: normal S-1 and S-2 and regular rate and rhythm Respiratory: clear to auscultation (CTA) and no rales, rhonchi or wheeze Musculoskeletal: no peripheral edema, loss of muscle mass throughout Skin: no stigmata of neurocutaneous disease noted and normal and intact Eyes: extraocular muscles intact (EOMI) and pupils equal, round and reactive to light (PERRL), blind in right eye, ecchymosis resolving over right eye NEUROLOGIC EXAMINATION: Mental status: Alert and interactive Oriented in a hospital Oriented to person Speech fluent with no evidence of aphasia Cranial Nerves smile eye brow raise symmetric, tongue midline Coordination: finger to nose no bi pass. reaching tremor fine Gait/Stance: Posture sitting up in bed Motor: Negative for pronator drift of out stretched arms with eyes closed. 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, hip flex plantar flex ext 5/5 bilaterally Current Inpatient Medications Medications (Trade) Dose Ordered Sig/Maris Route Start Time Stop Time Status Last Admin Dose Admin Acetaminophen (Tylenol Tab) 650 mg Q4H PRN PO 03/23/17 19:00 04/22/17 18:59 Ondansetron HCl (Zofran Inj) 4 mg Q6H PRN IV 03/23/17 19:00 04/22/17 18:59 03/26/17 21:48 4 MG Oxycodone/ Acetaminophen (Percocet 5-325mg Tab) 1 tab Q6H PRN PO 03/23/17 19:15 04/06/17 19:14 03/28/17 07:53 1 TAB Albuterol/ Ipratropium (Duoneb) 3 ml Q6R INH 03/23/17 21:00 04/22/17 20:59 03/28/17 14:16 3 ML Amitriptyline HCl (Elavil Tab) 35 mg HS PO 03/23/17 21:00 04/22/17 20:59 03/27/17 21:49 35 MG Ascorbic Acid (Vitamin C Tab) 500 mg DAILY PO 03/24/17 09:00 04/23/17 08:59 03/28/17 07:52 500 MG Cyanocobalamin (Vitamin B-12 Tab) 1,000 mcg DAILY PO 03/24/17 09:00 04/23/17 08:59 03/28/17 07:53 1,000 MCG Docusate Sodium (coLACE CAP) 100 mg BID PO 03/23/17 21:00 04/22/17 20:59 03/28/17 07:53 100 MG Ferrous Sulfate (Feosol Tab) 325 mg QAM PO 03/24/17 09:00 04/23/17 08:59 03/28/17 08:01 325 MG Fluticasone Propionate (Flonase Nasal [place]) 1 sprays DAILY FRANCK 03/24/17 09:00 04/23/17 08:59 03/28/17 08:01 1 SPRAYS Multivitamins (Multivitamin Tab) 1 tab DAILY PO 03/24/17 09:00 04/23/17 08:59 03/28/17 08:01 1 TAB Phenytoin Sodium (Dilantin Er Cap) 100 mg HS PO 03/23/17 21:00 04/22/17 20:59 03/27/17 21:49 100 MG Phenytoin Sodium (Dilantin Er Cap) 200 mg DAILY PO 03/24/17 09:00 04/23/17 08:59 03/28/17 08:00 200 MG Prednisone (PredniSONE TAB) 5 mg HS PO 03/23/17 21:00 04/22/17 20:59 03/27/17 21:50 5 MG Ranitidine HCl (zANTac TAB) 150 mg HS PO 03/23/17 21:00 04/22/17 20:59 03/27/17 21:50 150 MG Ropinirole HCl (Requip Tab) 0.25 mg HS PO 03/23/17 21:00 04/22/17 20:59 03/27/17 21:51 0.25 MG Senna (Senokot Tab) 8.6 mg DAILY PO 03/24/17 09:00 04/23/17 08:59 03/28/17 07:53 8.6 MG Simvastatin (Zocor Tab) 20 mg HS PO 03/23/17 21:00 04/22/17 20:59 03/27/17 21:51 20 MG Calcium/Vitamin D (Caltrate Plus Tab) 1 tab QAM PO 03/24/17 09:00 04/23/17 08:59 03/28/17 08:00 1 TAB Cholecalciferol (Vitamin D Tab) 5,000 inter.unit DAILY PO 03/24/17 09:00 04/23/17 08:59 03/28/17 08:01 5,000 INTER.UNIT Miscellaneous Information (Order Awaiting Action) 1 ea QS N/A 03/24/17 00:00 04/23/17 00:00 Tiotropium [place] (Spiriva Handihaler Inhaler) 1 puff QAM INH 03/27/17 09:00 04/26/17 08:59 03/28/17 08:01 1 PUFF Amoxicillin/ Clavulanate Potassium (Augmentin Tab) 875 mg BIDM PO 03/28/17 08:00 04/04/17 07:59 03/28/17 08:00 875 MG Baclofen (Lioresal Tab) 5 mg BID PO 03/27/17 21:00 04/26/17 20:59 03/28/17 07:53 5 MG Clonidine HCl (Catapres Tab) 0.1 mg Q8 PRN PO 03/28/17 03:00 04/27/17 02:59 Impression 76 year old female with fall at home aspiration pneumonia Plan 1. discussion with daughter in law with physical therapy for rehab prior to return home 2. IV antibiotics for resolve of pneumonia lost IV access will continue orally if no access is obtained 3. seizure disorder -continue dilantin home dosing at this point. level was therapeutic on admission 16. 3 4. gait dysfunction likely caused by chronic EtOH use which she states she has not drank for years 5. fall and seizure precautions 6. no dyskinesia on exam however patient is not overly cooperative. 7. will see her as outpatient for further discussion of changing dilantin to Keppra I have seen and discussed above patient with Dr Hyun Lin, neurology Pt seen and examined, stable at present. Will need ncv-emg as outpt, HI Lin MD
--- NOTE | 2017-03-28 15:06 | Progress Note ---
Medicine Progress Note Date & Time of Visit: March 28, 2017 at 14:59. Subjective Pt was seen and examined sitting in bed with no distress pt said that she feels good she participates in physical therapy she said that she had a good night last night because she slept well she still refuses to go to rehab but she said that she might consider to go for 1 week, but not at [facility] because she had so many friends that went there and they she said that her breathing feels much better denies any chest pain, palpitation and sob Objective Last 8 Hrs Date Time Temp Pulse Resp B/P Pulse Ox O2 Delivery O2 Flow Rate FiO2 03/28/17 14:16 76 16 94 Room Air 03/28/17 12:30 Room Air 03/28/17 11:34 36.7 81 18 127/64 95 Room Air 03/28/17 08:00 Room Air 03/28/17 07:48 88 18 132/61 92 Room Air 97 123/63 03/28/17 07:25 36.7 84 16 123/67 100 Room Air 03/28/17 07:19 78 16 91 Room Air Physical Exam: General- No acute distress Head- atraumatic Eyes- Ecchymoses in Right orbit fading away, blindness in right eye ENT- oropharynx clear Neck- supple, no JVD Lungs- No wheezing Heart- regular rhythm; no murmur Abdomen- normal bowel sounds, soft Extremities- no calf tenderness Neuro- alert,oriented,no facial palsy, follow command Skin- warm & dry Assessment & Plan GENERALIZED WEAKNESS/ FALLS SYNCOPE VS NEAR SYNCOPE ambulatory dysfunction vs seizure vs orthostatic CT head was negative No arrhythmia noted on tele monitor continue PT/OT As per physical therapist her gait is unstable and would be unsafe to return home alone at this time. Continue refusing to go for inpatient rehab Tried to call her daughter Agus yesterday @ [phone] with no answered. Left voicemail Planning to have a meeting with family tomorrow @1200 about placement Fall precaution PNEUMONIA Possible related to aspiration CT chest showed secretions resulting in opacification of the right lower lobe bronchi with patchy airspace opacities and interstitial thickening at the base of the right lower lobe. Continue abx immunocompromised state with sulfasalazine and chronic prednisone use D/C Azithromycin Continue unasyn Aspiration precaution Continue chest PT, Dornase 03/28 Repeat CXR showed no significant change in mild bibasilar opacities. Unasyn changed to augmentin BID yesterday Continue monitor closely aspiration precaution Repeat CXR in 6 weeks for follow up the opacities Will need to arrange for PFT as an outpatient Clinically improved significantly ELEVATED D. DIMER Saturated well on 2L, no tachycardia Doppler of LEs negative V/Q scan showed probability for PE Stable HX EPILEPSY continue Dilantin phenytoin level 16 No seizure activity noted seizures precaution Stable ANEMIA chronic, baseline hgb ~ 10 Stable continue to monitor POSSIBLE NEUROLOGIC DISORDER Patient has orthostasis, fall, dysphagia, possible movement disorder, unusual affect. possible related to med MRI of the brain showed no evidence for an acute ischemic process. Neuro on board, recommended outpt EMG as an outpatient improved RHEUMATOID ARTHRITIS Will resume Sulfasalazine On Prednisone Stable CHRONIC PAIN Baclofen restarted with lower dose Continue oxycodone Stable COPD asymptomatic Continue neb treatment Continue spiriva TOBACCO ABUSE Counseling on smoking cessation DVT PROPHYLAXIS SCDs and ambulate CODE STATUS FULL CODE DISPOSITION Refused to go to rehab called daughter Agus @ [phone] witn no answer Consultants: Neurology Pulmonary Current Inpatient Medications: Current Inpatient Medications Medications (Trade) Dose Ordered Sig/Maris Route Start Time Stop Time Status Last Admin Dose Admin Acetaminophen (Tylenol Tab) 650 mg Q4H PRN PO 03/23/17 19:00 04/22/17 18:59 Ondansetron HCl (Zofran Inj) 4 mg Q6H PRN IV 03/23/17 19:00 04/22/17 18:59 03/26/17 21:48 4 MG Oxycodone/ Acetaminophen (Percocet 5-325mg Tab) 1 tab Q6H PRN PO 03/23/17 19:15 04/06/17 19:14 03/28/17 07:53 1 TAB Albuterol/ Ipratropium (Duoneb) 3 ml Q6R INH 03/23/17 21:00 04/22/17 20:59 03/28/17 14:16 3 ML Amitriptyline HCl (Elavil Tab) 35 mg HS PO 03/23/17 21:00 04/22/17 20:59 03/27/17 21:49 35 MG Ascorbic Acid (Vitamin C Tab) 500 mg DAILY PO 03/24/17 09:00 04/23/17 08:59 03/28/17 07:52 500 MG Cyanocobalamin (Vitamin B-12 Tab) 1,000 mcg DAILY PO 03/24/17 09:00 04/23/17 08:59 03/28/17 07:53 1,000 MCG Docusate Sodium (coLACE CAP) 100 mg BID PO 03/23/17 21:00 04/22/17 20:59 03/28/17 07:53 100 MG Ferrous Sulfate (Feosol Tab) 325 mg QAM PO 03/24/17 09:00 04/23/17 08:59 03/28/17 08:01 325 MG Fluticasone Propionate (Flonase Nasal [place]) 1 sprays DAILY FRANCK 03/24/17 09:00 04/23/17 08:59 03/28/17 08:01 1 SPRAYS Multivitamins (Multivitamin Tab) 1 tab DAILY PO 03/24/17 09:00 04/23/17 08:59 03/28/17 08:01 1 TAB Phenytoin Sodium (Dilantin Er Cap) 100 mg HS PO 03/23/17 21:00 04/22/17 20:59 03/27/17 21:49 100 MG Phenytoin Sodium (Dilantin Er Cap) 200 mg DAILY PO 03/24/17 09:00 04/23/17 08:59 03/28/17 08:00 200 MG Prednisone (PredniSONE TAB) 5 mg HS PO 03/23/17 21:00 04/22/17 20:59 03/27/17 21:50 5 MG Ranitidine HCl (zANTac TAB) 150 mg HS PO 03/23/17 21:00 04/22/17 20:59 03/27/17 21:50 150 MG Ropinirole HCl (Requip Tab) 0.25 mg HS PO 03/23/17 21:00 04/22/17 20:59 03/27/17 21:51 0.25 MG Senna (Senokot Tab) 8.6 mg DAILY PO 03/24/17 09:00 04/23/17 08:59 03/28/17 07:53 8.6 MG Simvastatin (Zocor Tab) 20 mg HS PO 03/23/17 21:00 04/22/17 20:59 03/27/17 21:51 20 MG Calcium/Vitamin D (Caltrate Plus Tab) 1 tab QAM PO 03/24/17 09:00 04/23/17 08:59 03/28/17 08:00 1 TAB Cholecalciferol (Vitamin D Tab) 5,000 inter.unit DAILY PO 03/24/17 09:00 04/23/17 08:59 03/28/17 08:01 5,000 INTER.UNIT Miscellaneous Information (Order Awaiting Action) 1 ea QS N/A 03/24/17 00:00 04/23/17 00:00 Tiotropium [place] (Spiriva Handihaler Inhaler) 1 puff QAM INH 03/27/17 09:00 04/26/17 08:59 03/28/17 08:01 1 PUFF Amoxicillin/ Clavulanate Potassium (Augmentin Tab) 875 mg BIDM PO 03/28/17 08:00 04/04/17 07:59 03/28/17 08:00 875 MG Baclofen (Lioresal Tab) 5 mg BID PO 03/27/17 21:00 04/26/17 20:59 03/28/17 07:53 5 MG Clonidine HCl (Catapres Tab) 0.1 mg Q8 PRN PO 03/28/17 03:00 04/27/17 02:59
--- NOTE | 2017-03-28 16:07 | PULMONARY PROGRESS NOTE ---
DATE: 03/28/2017 TIME: 3:00 p.m. SUBJECTIVE: The patient states that she is getting much more alert. She is more energetic and less lethargic than when she first came in. She cannot recall a lot of the details of the first part of her admission. She denies any shortness of breath at rest. She states she is short of breath if she does something with exertion. She denies having shortness of breath just walking to the bathroom; however. She has an occasional cough. I spoke with the patient regarding her history of persistent smoking. She made it absolutely clear she wants no discussion regarding quitting smoking. She just likes to smoke and she insists that she had lung congestion at a young age long before she ever started smoking. OBJECTIVE: GENERAL: The patient was cooperative and alert. She was oriented. She did not appear in any distress. VITAL SIGNS: Temperature is 36.7. Heart rate was 76 per minute. Blood pressure is 127/64. Oxygen saturation on room air was 94%. HEENT: She has significant ecchymosis around the right eye. The right eye itself is opacified and she is essentially blind. Mouth exam was unremarkable. NECK: Palpation of the neck reveals no lymph nodes. The neck veins were not distended. HEART: The rhythm was regular. LUNGS: Auscultation revealed mildly decreased breath sounds. No active wheezing or rhonchi were heard. ABDOMEN: Soft and nontender. The patient is very slender with a BMI of 15.3. EXTREMITIES: Showed no cyanosis, clubbing or edema. LABORATORY AND IMAGING DATA: It appears she did not have any blood work today. I did review her CAT scan done on the . This shows some opacification in the right lower lung field that was felt to be secondary to secretions. There was very mild mediastinal adenopathy. Emphysema was definitely noted. She had a chest x-ray done on the that showed no change in the bibasilar opacities. The thought has been that this may reflect aspiration. She did have a lung scan on March 24 suggesting a low probability for pulmonary embolism. IMPRESSIONS: 1. Right lower lobe infiltrate -- possibly secondary to aspiration. 2. 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 3. Nicotine addiction. COMMENTS AND RECOMMENDATIONS: As has been noted previously, she should have a followup chest x-ray in about 6 weeks to assure clearance. She is on Augmentin b.i.d. and I agree with that. She is on Spiriva. She is on DuoNeb treatments. She is on prednisone just 5 mg. Her respiratory status is currently stable. We will see again if specifically requested.
[2017-03-28] MEDS: AMITRIPTYLINE HCL 10 MG TAB PO SCH (20:54)
[2017-03-28] MEDS: SIMVASTATIN 20 MG TAB PO SCH (20:55)
[2017-03-28] MEDS: RANITIDINE HCL 150 MG TAB PO SCH (20:55)
[2017-03-28] MEDS: ROPINIROLE HCL 0.25 MG TAB PO SCH (20:56)
[2017-03-28] MEDS ORDERED: ALBUT/IPRATROP 3MG/0.5MG NEB 3 ML VIAL INH PRN (21:45)
[2017-03-28] MEDS: IPRATROPIUM BROMIDE/ALBUTEROL respimat INH INH SCH (23:49)
[2017-03-29] VITALS (7 sets, daily range): BP systolic 114–130; BP diastolic 54–68; PULSE 67–78; TEMP 36.5–37.5; O2SAT 90–95
[2017-03-29] MEDS: IPRATROPIUM BROMIDE/ALBUTEROL respimat INH INH SCH ×3 (05:49→17:06)
[2017-03-29] MEDS: FLUTICASONE PROPIONATE NA SPR 16 GM BTL NAE SCH (08:45)
[2017-03-29] MEDS: ASCORBIC ACID 500 MG TAB PO SCH (08:45)
[2017-03-29] MEDS: CHOLECALCIFEROL 1000 INTER.UNIT TAB PO SCH (08:45)
[2017-03-29] MEDS: AMOXICILLIN/CLAVULANATE TAB 875 MG TAB PO SCH ×2 (08:45→17:06)
[2017-03-29] MEDS: CYANOCOBALAMIN 500 MCG TAB (VIT B-12) PO SCH (08:45)
[2017-03-29] MEDS: TIOTROPIUM BROMIDE 5 PUFF/90 MCG INH INH SCH (08:45)
[2017-03-29] MEDS: CALCIUM 600MG + VIT D 400 IU TAB PO SCH (08:46)
[2017-03-29] MEDS: MULTIVITAMIN TAB PO SCH (08:46)
[2017-03-29] MEDS: SENNA 8.6 MG TAB PO SCH (08:46)
[2017-03-29] MEDS: FERROUS SULFATE 325 MG TAB PO SCH (08:46)
[2017-03-29] MEDS: PHENYTOIN SODIUM ER 100 MG CAP PO SCH ×2 (08:46→20:39)
[2017-03-29] MEDS: DOCUSATE SODIUM 100 MG CAP PO SCH ×2 (08:46→20:37)
[2017-03-29] MEDS: BACLOFEN 10 MG TAB PO SCH ×2 (08:46→20:37)
[2017-03-29] MEDS: OXYCODONE/ACETAMINOPHEN 5-325 TAB PO PRN ×2 (14:24→20:36)
--- NOTE | 2017-03-29 15:15 | Neurology Progress Notes ---
Neurology Progress Note Date of Service March 29, 2017. Johnathan Diaz is a 76 year old female who has a H seizure disorder, RA, anemia of chronic disease, neuropathy presents to the ER after a fall. Patient reports that around 0100 she had gone to the bathroom. When she tried to get up from the toilet, she reports she felt lightheaded and dizzy and fell forward hitting her head off of the clothes hamper. She was admitted to the hospital last year and was found to have aspiration. She reports she has not been following aspirations precautions. She was treated with IV antibiotics. She states she feels much better today. She was able to sleep last night and the baclofen is helping some with the muscle spasms she gets in her legs. Her family was here today for a meeting to talk to her about going to rehab. She has agreed to [facility] [place] and will likely be transferred tomorrow. denies CP , SOB, abdominal pain, N, V. she states the muscle spasms have improved with the baclofen Objective Date Time Temp Pulse Resp B/P Pulse Ox O2 Delivery O2 Flow Rate FiO2 03/29/17 11:18 36.6 70 18 128/66 94 Room Air 03/29/17 08:03 37.2 67 16 114/61 90 Room Air 03/29/17 08:00 Room Air 03/29/17 04:35 36.5 76 18 124/62 93 Room Air 03/29/17 04:05 Room Air 03/29/17 00:05 Room Air 03/28/17 23:28 36.6 66 18 166/68 90 Room Air 03/28/17 20:00 85 16 93 Room Air 03/28/17 20:00 93 Room Air 03/28/17 20:00 36.9 75 18 119/67 93 03/28/17 16:00 91 Room Air 03/28/17 15:58 37.1 83 18 120/75 91 no new labs Imaging: no new imaging Exam: Physical Exam: Constitutional: appearance thin pale Ears, Nose, Mouth and Throat: mucous membranes moist, no injection and skin normal, eyes normal Cardiovascular: normal S-1 and S-2 and regular rate and rhythm Respiratory: course breath sounds Musculoskeletal: no peripheral edema and good distal pulses Skin: no stigmata of neurocutaneous disease noted and normal and intact Eyes: extraocular muscles intact (EOMI) and pupils equal, round and reactive to light (PERRL), accept right eye not reactive to light (blind ) NEUROLOGIC EXAMINATION: Mental status: Alert and interactive Oriented [facility] Oriented to person Speech fluent with no evidence of aphasia Cranial Nerves smile eye brow raise symmetric, tongue midline Sensory: intact to light touch Coordination: finger to nose without bi pass, essential tremor right>left Gait/Stance: Posture sitting up in bed Motor: Negative for pronator drift of out stretched arms with eyes closed. Strength: generalized weakness R>L Current Inpatient Medications Medications (Trade) Dose Ordered Sig/Maris Route Start Time Stop Time Status Last Admin Dose Admin Acetaminophen (Tylenol Tab) 650 mg Q4H PRN PO 03/23/17 19:00 04/22/17 18:59 Ondansetron HCl (Zofran Inj) 4 mg Q6H PRN IV 03/23/17 19:00 04/22/17 18:59 03/26/17 21:48 4 MG Oxycodone/ Acetaminophen (Percocet 5-325mg Tab) 1 tab Q6H PRN PO 03/23/17 19:15 04/06/17 19:14 03/29/17 14:24 1 TAB Amitriptyline HCl (Elavil Tab) 35 mg HS PO 03/23/17 21:00 04/22/17 20:59 03/28/17 20:54 35 MG Ascorbic Acid (Vitamin C Tab) 500 mg DAILY PO 03/24/17 09:00 04/23/17 08:59 03/29/17 08:45 500 MG Cyanocobalamin (Vitamin B-12 Tab) 1,000 mcg DAILY PO 03/24/17 09:00 04/23/17 08:59 03/29/17 08:45 1,000 MCG Docusate Sodium (coLACE CAP) 100 mg BID PO 03/23/17 21:00 04/22/17 20:59 03/29/17 08:46 100 MG Ferrous Sulfate (Feosol Tab) 325 mg QAM PO 03/24/17 09:00 04/23/17 08:59 03/29/17 08:46 325 MG Fluticasone Propionate (Flonase Nasal [place]) 1 sprays DAILY FRANCK 03/24/17 09:00 04/23/17 08:59 03/29/17 08:45 1 SPRAYS Multivitamins (Multivitamin Tab) 1 tab DAILY PO 03/24/17 09:00 04/23/17 08:59 03/29/17 08:46 1 TAB Phenytoin Sodium (Dilantin Er Cap) 100 mg HS PO 03/23/17 21:00 04/22/17 20:59 03/28/17 20:56 100 MG Phenytoin Sodium (Dilantin Er Cap) 200 mg DAILY PO 03/24/17 09:00 04/23/17 08:59 03/29/17 08:46 200 MG Prednisone (PredniSONE TAB) 5 mg HS PO 03/23/17 21:00 04/22/17 20:59 03/28/17 20:55 5 MG Ranitidine HCl (zANTac TAB) 150 mg HS PO 03/23/17 21:00 04/22/17 20:59 03/28/17 20:55 150 MG Ropinirole HCl (Requip Tab) 0.25 mg HS PO 03/23/17 21:00 04/22/17 20:59 03/28/17 20:56 0.25 MG Senna (Senokot Tab) 8.6 mg DAILY PO 03/24/17 09:00 04/23/17 08:59 03/29/17 08:46 8.6 MG Simvastatin (Zocor Tab) 20 mg HS PO 03/23/17 21:00 04/22/17 20:59 03/28/17 20:55 20 MG Calcium/Vitamin D (Caltrate Plus Tab) 1 tab QAM PO 03/24/17 09:00 04/23/17 08:59 03/29/17 08:46 1 TAB Cholecalciferol (Vitamin D Tab) 5,000 inter.unit DAILY PO 03/24/17 09:00 04/23/17 08:59 03/29/17 08:45 5,000 INTER.UNIT Miscellaneous Information (Order Awaiting Action) 1 ea QS N/A 03/24/17 00:00 04/23/17 00:00 Tiotropium [place] (Spiriva Handihaler Inhaler) 1 puff QAM INH 03/27/17 09:00 04/26/17 08:59 03/29/17 08:45 1 PUFF Amoxicillin/ Clavulanate Potassium (Augmentin Tab) 875 mg BIDM PO 03/28/17 08:00 04/04/17 07:59 03/29/17 08:45 875 MG Baclofen (Lioresal Tab) 5 mg BID PO 03/27/17 21:00 04/26/17 20:59 03/29/17 08:46 5 MG Clonidine HCl (Catapres Tab) 0.1 mg Q8 PRN PO 03/28/17 03:00 04/27/17 02:59 03/28/17 23:47 0.1 MG Albuterol/ Ipratropium (Combivent Respimat Inh) 1 puffs Q6 INH 03/29/17 00:00 04/28/17 00:00 03/29/17 11:41 1 PUFFS Albuterol/ Ipratropium (Duoneb) 3 ml Q2H PRN INH 03/28/17 21:45 04/27/17 21:44 Impression 76 year old female with fall at home aspiration pneumonia Plan 1. discussion with daughter in law with physical therapy for rehab prior to return home agreed on [facility] 2. IV antibiotics for resolve of pneumonia lost IV access will continue orally if no access is obtained 3. seizure disorder -continue dilantin home dosing at this point. level was therapeutic on admission 16. 3 4. gait dysfunction likely caused by chronic EtOH use which she states she has not drank for years 5. fall and seizure precautions 6. no dyskinesia on exam has become more cooperative. 7. will see her as outpatient for further discussion of changing dilantin to Keppra 8. long time smoker-she states she's not quitting 9. schedule with Dr Hyun Lin 2-3 weeks after discharge from rehab 10. will sign off for now call with questions concerns. I have discussed above patient with Dr Hyun Lin, neurology Discussed with Hyun Barber, will address potential anticonvulsant change after I see how she rehabilitates. Pt needs an appt with me for a 40 min NCV to evaluate for possible neuropathy. HI Lin MD
--- NOTE | 2017-03-29 18:20 | Progress Note ---
Medicine Progress Note Date & Time of Visit: March 29, 2017 at 18:04. Subjective Pt was seen and examined Sitting in bed comfortable with no distress she was playing her video game Pt said that she feels fine she said that her strength is improved she agreed to go to rehab because she did not want a court order to make her go denies any chest pain, palpitation and sob Objective Last 8 Hrs Date Time Temp Pulse Resp B/P Pulse Ox O2 Delivery O2 Flow Rate FiO2 03/29/17 16:00 91 Room Air 03/29/17 15:11 37.2 72 18 130/65 91 Room Air 03/29/17 11:18 36.6 70 18 128/66 94 Room Air Physical Exam: General- No acute distress Head- atraumatic Eyes- Ecchymoses in Right orbit fading away, blindness in right eye ENT- oropharynx clear Neck- supple, no JVD Lungs- No wheezing Heart- regular rhythm; no murmur Abdomen- normal bowel sounds, soft Extremities- no calf tenderness Neuro- alert,oriented,no facial palsy, follow command Skin- warm & dry Assessment & Plan GENERALIZED WEAKNESS/ FALLS SYNCOPE VS NEAR SYNCOPE ambulatory dysfunction vs seizure vs orthostatic CT head was negative No arrhythmia noted on tele monitor continue PT/OT As per physical therapist her gait is unstable and would be unsafe to return home alone at this time. Continue refusing to go for inpatient rehab Tried to call her daughter Agus yesterday @ [phone] with no answered. 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 Continue abx immunocompromised state with sulfasalazine and chronic prednisone use D/C Azithromycin Continue unasyn Aspiration precaution Continue chest PTSmith 03/29 Repeat CXR showed no significant change in mild bibasilar opacities. Unasyn changed to augmentin BID yesterday Continue monitor closely aspiration precaution Repeat CXR in 6 weeks for follow up the opacities Will need to arrange for PFT as an outpatient Continue Augmentin to complete a total of 7 days course of abx. Clinically improved significantly ELEVATED D. DIMER Saturated well on 2L, no tachycardia Doppler of LEs negative V/Q scan showed probability for PE Stable HX EPILEPSY continue Dilantin phenytoin level 16 No seizure activity noted Will follow with neuro as an outpatient to consider to change Dilantin to Keppra seizures precaution Stable ANEMIA chronic, baseline hgb ~ 10 Stable continue to monitor POSSIBLE NEUROLOGIC DISORDER Patient has orthostasis, fall, dysphagia, possible movement disorder, unusual affect. possible related to med MRI of the brain showed no evidence for an acute ischemic process. Neuro on board, recommended EMG as an outpatient improved RHEUMATOID ARTHRITIS Will resume Sulfasalazine On Prednisone Stable CHRONIC PAIN Baclofen restarted with lower dose Continue oxycodone Stable COPD asymptomatic Continue neb treatment Continue spiriva TOBACCO ABUSE Counseling on smoking cessation DVT PROPHYLAXIS SCDs and ambulate CODE STATUS FULL CODE DISPOSITION Waiting for approval to discharge to [facility] Consultants: Neurology Pulmonary Current Inpatient Medications: Current Inpatient Medications Medications (Trade) Dose Ordered Sig/Maris Route Start Time Stop Time Status Last Admin Dose Admin Acetaminophen (Tylenol Tab) 650 mg Q4H PRN PO 03/23/17 19:00 04/22/17 18:59 Ondansetron HCl (Zofran Inj) 4 mg Q6H PRN IV 03/23/17 19:00 04/22/17 18:59 03/26/17 21:48 4 MG Oxycodone/ Acetaminophen (Percocet 5-325mg Tab) 1 tab Q6H PRN PO 03/23/17 19:15 04/06/17 19:14 03/29/17 14:24 1 TAB Amitriptyline HCl (Elavil Tab) 35 mg HS PO 03/23/17 21:00 04/22/17 20:59 03/28/17 20:54 35 MG Ascorbic Acid (Vitamin C Tab) 500 mg DAILY PO 03/24/17 09:00 04/23/17 08:59 03/29/17 08:45 500 MG Cyanocobalamin (Vitamin B-12 Tab) 1,000 mcg DAILY PO 03/24/17 09:00 04/23/17 08:59 03/29/17 08:45 1,000 MCG Docusate Sodium (coLACE CAP) 100 mg BID PO 03/23/17 21:00 04/22/17 20:59 03/29/17 08:46 100 MG Ferrous Sulfate (Feosol Tab) 325 mg QAM PO 03/24/17 09:00 04/23/17 08:59 03/29/17 08:46 325 MG Fluticasone Propionate (Flonase Nasal [place]) 1 sprays DAILY FRANCK 03/24/17 09:00 04/23/17 08:59 03/29/17 08:45 1 SPRAYS Multivitamins (Multivitamin Tab) 1 tab DAILY PO 03/24/17 09:00 04/23/17 08:59 03/29/17 08:46 1 TAB Phenytoin Sodium (Dilantin Er Cap) 100 mg HS PO 03/23/17 21:00 04/22/17 20:59 03/28/17 20:56 100 MG Phenytoin Sodium (Dilantin Er Cap) 200 mg DAILY PO 03/24/17 09:00 04/23/17 08:59 03/29/17 08:46 200 MG Prednisone (PredniSONE TAB) 5 mg HS PO 03/23/17 21:00 04/22/17 20:59 03/28/17 20:55 5 MG Ranitidine HCl (zANTac TAB) 150 mg HS PO 03/23/17 21:00 04/22/17 20:59 03/28/17 20:55 150 MG Ropinirole HCl (Requip Tab) 0.25 mg HS PO 03/23/17 21:00 04/22/17 20:59 03/28/17 20:56 0.25 MG Senna (Senokot Tab) 8.6 mg DAILY PO 03/24/17 09:00 04/23/17 08:59 03/29/17 08:46 8.6 MG Simvastatin (Zocor Tab) 20 mg HS PO 03/23/17 21:00 04/22/17 20:59 03/28/17 20:55 20 MG Calcium/Vitamin D (Caltrate Plus Tab) 1 tab QAM PO 03/24/17 09:00 04/23/17 08:59 03/29/17 08:46 1 TAB Cholecalciferol (Vitamin D Tab) 5,000 inter.unit DAILY PO 03/24/17 09:00 04/23/17 08:59 03/29/17 08:45 5,000 INTER.UNIT Miscellaneous Information (Order Awaiting Action) 1 ea QS N/A 03/24/17 00:00 04/23/17 00:00 Tiotropium [place] (Spiriva Handihaler Inhaler) 1 puff QAM INH 03/27/17 09:00 04/26/17 08:59 03/29/17 08:45 1 PUFF Amoxicillin/ Clavulanate Potassium (Augmentin Tab) 875 mg BIDM PO 03/28/17 08:00 04/04/17 07:59 03/29/17 17:06 875 MG Baclofen (Lioresal Tab) 5 mg BID PO 03/27/17 21:00 04/26/17 20:59 03/29/17 08:46 5 MG Clonidine HCl (Catapres Tab) 0.1 mg Q8 PRN PO 03/28/17 03:00 04/27/17 02:59 03/28/17 23:47 0.1 MG Albuterol/ Ipratropium (Combivent Respimat Inh) 1 puffs Q6 INH 03/29/17 00:00 04/28/17 00:00 03/29/17 17:06 1 PUFFS Albuterol/ Ipratropium (Duoneb) 3 ml Q2H PRN INH 03/28/17 21:45 04/27/17 21:44
[2017-03-29] MEDS: RANITIDINE HCL 150 MG TAB PO SCH (20:37)
[2017-03-29] MEDS: AMITRIPTYLINE HCL 10 MG TAB PO SCH (20:38)
[2017-03-29] MEDS: SIMVASTATIN 20 MG TAB PO SCH (20:39)
[2017-03-29] MEDS: ROPINIROLE HCL 0.25 MG TAB PO SCH (20:39)
[2017-03-30] MEDS: IPRATROPIUM BROMIDE/ALBUTEROL respimat INH INH SCH ×3 (00:26→12:00)
[2017-03-30 07:26] VITALS: BP 131/72; PULSE 71; TEMP 37; O2SAT 95
[2017-03-30 08:00] VITALS: O2SAT 95
[2017-03-30] MEDS: MULTIVITAMIN TAB PO SCH (08:10)
[2017-03-30] MEDS: AMOXICILLIN/CLAVULANATE TAB 875 MG TAB PO SCH (08:11)
[2017-03-30] MEDS: CHOLECALCIFEROL 1000 INTER.UNIT TAB PO SCH (08:11)
[2017-03-30] MEDS: BACLOFEN 10 MG TAB PO SCH (08:12)
[2017-03-30] MEDS: CALCIUM 600MG + VIT D 400 IU TAB PO SCH (08:12)
[2017-03-30] MEDS: TIOTROPIUM BROMIDE 5 PUFF/90 MCG INH INH SCH (08:13)
[2017-03-30] MEDS: PHENYTOIN SODIUM ER 100 MG CAP PO SCH (08:14)
[2017-03-30] MEDS: DOCUSATE SODIUM 100 MG CAP PO SCH (08:14)
[2017-03-30] MEDS: ASCORBIC ACID 500 MG TAB PO SCH (08:14)
[2017-03-30] MEDS: SENNA 8.6 MG TAB PO SCH (08:14)
[2017-03-30] MEDS: FERROUS SULFATE 325 MG TAB PO SCH (08:14)
[2017-03-30] MEDS: FLUTICASONE PROPIONATE NA SPR 16 GM BTL NAE SCH (08:15)
[2017-03-30] MEDS: CYANOCOBALAMIN 500 MCG TAB (VIT B-12) PO SCH (08:15)
[2017-03-30] MEDS: OXYCODONE/ACETAMINOPHEN 5-325 TAB PO PRN ×2 (08:28→14:45)
--- NOTE | 2017-03-30 09:29 | Progress Note ---
Internal Med Progress Note Date of Service: March 30, 2017. Provider Documentation: SUBJECTIVE: The patient was seen and examined Denies any symptoms Ready to be discharged today OBJECTIVE: Vital Signs-as noted below Exam: General-No distress at rest Eyes-normal ENT-normal Neck-supple Lungs-Right basilar crackles ,otherwise clear Heart-Regular Abdomen-Benign,no masses,bowel sound present Extremities-Trace edema bilaterally Neuro-AAOx3 Lab data as noted below. 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 Immunocompromised state with sulfasalazine and chronic prednisone use Was on .D/C Azithromycin Received Unasyn Unasyn changed to Augmentin BID on 03/28/17 Repeat CXR in 6 weeks for follow up the opacities Will need to arrange for PFT as an outpatient Continue Augmentin to complete a total of 7 days course of abx. Clinically improved significantly ELEVATED D. DIMER Saturated well on 2L, no tachycardia Doppler of LEs negative V/Q scan showed probability for PE Stable HX EPILEPSY continue Dilantin phenytoin level 16 No seizure activity noted Will follow with neuro as an outpatient to consider to change Dilantin to Keppra seizures precaution ANEMIA chronic, baseline hgb ~ 10 Stable continue to monitor POSSIBLE NEUROLOGIC DISORDER Patient has orthostasis, fall, dysphagia, possible movement disorder, unusual affect. possible related to med MRI of the brain showed no evidence for an acute ischemic process. Neuro on board, recommended EMG as an outpatient Outpatient Neurology appointment in 2-3 weeks after discharge from rehab RHEUMATOID ARTHRITIS Will resume Sulfasalazine On Prednisone Stable CHRONIC PAIN Baclofen restarted with lower dose Continue oxycodone Stable COPD asymptomatic Continue neb treatment Continue spiriva TOBACCO ABUSE Counseling on smoking cessation DVT PROPHYLAXIS SCDs and ambulate CODE STATUS FULL CODE DISPOSITION Waiting for approval to discharge to [facility] Consultants: Neurology Pulmonary Discharge today Vital Signs: Date Time Temp Pulse Resp B/P Pulse Ox O2 Delivery O2 Flow Rate FiO2 03/30/17 07:26 37.0 71 18 131/72 95 Room Air 5/26/17 00:00 Room Air 03/29/17 23:09 37.2 72 18 126/54 95 Room Air 03/29/17 19:25 37.5 78 18 126/68 90 Room Air 03/29/17 16:00 91 Room Air 03/29/17 15:11 37.2 72 18 130/65 91 Room Air 03/29/17 11:18 36.6 70 18 128/66 94 Room Air
[2017-03-30] MEDS ORDERED: OXYC-57 PO (10:46)
[2017-03-30] MEDS ORDERED: LRS10 PO (10:46)
[2017-03-30] MEDS ORDERED: AMOX1TAB43 PO (10:46)
--- NOTE | 2017-03-30 10:52 | Discharge Instructions ---
Discharge Instructions Date of Service March 30, 2017. Admission Reason for Admission: Fall; Pneumonia Discharge Discharge Diagnosis / Problem: Ambulatory dysfunction,Syncope/Near syncope Discharge Goals Goal(s): Prevent Disease Progression Activity Recommendations Activity Level: Assistance Required Therapies: Physical Therapy, Occupational Therapy . Additional Information Patient informed of condition: Yes Advance Directives: No DNR: No Level of Care: Skilled Communicable Disease: No Prognosis: Stable Oxygen at (LPM): 2 liter/min via NC needed Tracey Catheter: No Instructions / Follow-Up Instructions / Follow-Up Please make an appointment with your PCP in 1 week,Dr Lin in 2-3 weeks and Pulmonary in 2-3 weeks .Repeat CXR in 6 weeks Current Hospital Diet Patient's current hospital diet: Regular Diet Discharge Diet Recommended Diet: Regular Diet Pending Studies Studies pending at discharge: no Medical Emergencies . Who to Call and When: Medical Emergencies: If at any time you feel your situation is an emergency, please call 911 immediately. . Non-Emergent Contact Non-Emergency issues call your: Primary Care Provider . Past History Medical & Surgical History: (1) Ambulatory dysfunction (2) Chronic obstructive lung disease (3) Anemia of chronic disorder (4) Seizure disorder (5) Rheumatoid arthritis (6) Epilepsy (7) Status post appendectomy (8) Status post tubal ligation (9) Status post hysterectomy (10) Status post exploratory laparotomy (11) Status post ovarian cystectomy (12) Status post tonsillectomy (13) Status post cataract extraction . "Provider Documentation" section prepared by Charissa Odell. . Core Measure Problem Core Measures: None
[2017-03-30 14:38] VITALS: BP 131/72; PULSE 71; TEMP 37; O2SAT 95
--- NOTE | 2017-03-31 08:03 | Discharge Summary ---
Discharge Summary Date of Service March 31, 2017. Discharge Summary Admission Date: March 23, 2017 at 19:08 Discharge Date: March 30, 2017 Discharge Disposition: half-way facility Principal Diagnosis: Ambulatory dysfunction,Syncope/Near syncope Secondary Diagnoses/Problems: Please see H&P and Hospital Progress note Consultations: Neurology and Pulmonary Medication Reconciliation New Medications: Amoxicillin & Pot Clavulanate (Amoxicillin/Clavulanate P) 1 Tab Tab 875 MG PO BIDM for 3 Days, #6 TAB Baclofen (Baclofen) 10 Mg Tab 5 MG PO BID for 30 Days, #30 TAB Continued Medications: Albuterol Hfa (Ventolin Hfa) 200 Puffs/71214 Mcg Aers 2-4 PUFFS INH Q6H PRN for SOB/Wheezing, INHALER Amitriptyline HCl (Amitriptyline HCl) 25 Mg Tab 35 MG PO HS TAKE ONE 25 MG TABLET ALONG WITH ONE 10 MG TABLET TO EQUAL DAILY DOSE OF 35 MG. Ascorbic Acid (Ascorbic Acid) 500 Mg Tab 500 MG PO DAILY Calcium Carbonate-Vitamin D (Calcium 600 + D) 1 Tab Tab 1 TABS PO DAILY Cholecalciferol (Vitamin D3) 5,000 Unit Cap 5000 INTER.UNIT PO DAILY Cyanocobalamin (Vitamin B-12) 1,000 Mcg Tab 1000 MCG PO DAILY, TAB Denosumab (Prolia) 60 Mg/Ml Brianna 60 MG SQ Q6 MONTHS Docusate Sodium (Stool Softener) 100 Mg Cap 100 MG PO BID Ferrous Sulfate (Ferrous Sulfate) 325 Mg Tab 325 MG PO QAM Fluticasone Propionate (Nasal) (Flonase Allergy Relief) 50 Mcg/Act Spr 1 SPRAY FRANCK DAILY Meloxicam (Mobic) 7.5 Mg Tab 7.5 MG PO DAILY Menthol (Topical Analgesic) (Icy Hot Back Patch) 5 % Pad 1 APPLN TOP DAILY PRN for Back Aches Multivitamin (Multivitamin) Tab 1 TAB PO DAILY, TAB Olopatadine Hydrochloride (Patanol) 75 Drops/5 Ml Soln [address] IN AFFECTED EYE(s) DIRECTED. Oxycodone/Acetaminophen 5MG/325MG (Percocet 5MG/325MG) Tab 1 TABLET PO Q4H PRN for Pain for 7 Days, #20 (This prescription has been renewed ) Phenytoin Sodium (Dilantin) 100 Mg Cap 100 MG PO HS Phenytoin Sodium (Dilantin) 100 Mg Cap 200 MG PO DAILY for 30 Days, #60 CAP 3 Refills Prednisone (Prednisone) 5 Mg Tab 5 MG PO HS, TAB Ranitidine HCl (Ranitidine HCl) 150 Mg Tab 150 MG PO HS Ropinirole Hydrochloride (Requip) 0.25 Mg Tab 0.25 MG PO HS TAKE THIS MEDICATION 1-3 HOURS BEFORE BEDTIME. Sennosides (Sennosides) 8.6 Mg Tab 8.6 MG PO DAILY Simvastatin (Simvastatin) 20 Mg Tab 20 MG PO HS Sulfasalazine (Azulfidine) 500 Mg Tab 500 MG PO BID, TAB Tiotropium [place] (Spiriva Handihaler) 30 Puff/540 Mcg Aerp 1 CAP INH QAM Discontinued Medications: Baclofen (Lioresal) 20 Mg Tab 20 MG PO BID PRN for Muscle Spasms Admission Information HPI (per Admitting provider): 76 year old female who presents to the ER after a fall. Patient reports that around 0100 she had gone to the bathroom. When she tried to get up from the toilet, she reports she felt lightheaded and dizzy and fell forward hitting her head off of the clothes hamper. She reports she then put herself onto the ground. She denies loosing coconsciousness. She said she felt weak and shaky all over. She was able to grab the sink and stand up and go back to bed. Daughter in law is present at the bedside and reports she found her on the couch this afternoon. She reports she always sleeps on the couch. She reports she was a little hard to awaken. She was then brought to the ER for further evaluation. Patient reports she hasn't been feeling well for the past few days. She has a chronic cough which is unchanged. She reports she feels short of breath "when she isn't feeling well". She was admitted to the hospital last year and was found to have aspiration. She reports she has not been following aspirations precautions. She denies chest pain. No abdominal pain, nausea, vomiting, or diarrhea. She denies fever and chills. No urinary symptoms. In the ER, CT chest is showing RLL pneumonia, likely aspiration. Patient was treated with IVF, IV azithromycin, IV Unasyn, and IV Morphine. Past Medical/Surgical History Medical Problems: (1) Anemia of chronic disorder Status: Chronic (2) Arthritis Status: Chronic (3) Bullous keratopathy Status: Chronic (4) Chronic obstructive lung disease Status: Chronic (5) Claudication Permanent Comment: bilateral Status: Chronic (6) Epilepsy Status: Chronic (7) Hypercholesterolemia Status: Chronic (8) Osteoporotic vertebral collapse Status: Chronic (9) Restless leg syndrome Status: Chronic (10) Rheumatoid arthritis Status: Chronic (11) Seizure disorder Status: Chronic (12) Status post repair hip fracture Status: Chronic (13) Tobacco user Status: Chronic Surgical Problems: (1) Status post appendectomy Status: Chronic (2) Status post cataract extraction Status: Chronic (3) Status post exploratory laparotomy Permanent Comment: x3 for adhesions Status: Chronic (4) Status post hysterectomy Status: Chronic (5) Status post ovarian cystectomy Status: Chronic (6) Status post tonsillectomy Status: Chronic (7) Status post tubal ligation Status: Chronic Family History Diabetes mellitus BROTHER SISTER Social History Smoking Status: Current Every Day Smoker Alcohol Use: none Housing status: lives alone Immunizations History of Influenza Vaccine: Yes Influenza Vaccine Date: Jul 24, 2016 History of Tetanus Vaccine?: Yes Tetanus Immunization Date: Mar 04, 2008 History of Pneumococcal: Yes Pneumococcal Date: Nov 15, 2007 Multi-Drug Resistant Organisms History of MDRO: No Allergies Coded Allergies: Dust (Verified Allergy, Mild, ITCHY EYES,RUNNY NOSE, 03/23/17) POLLEN (Verified Allergy, Mild, SEASONAL-ITCHY EYES,RUNNY NOSE, 03/23/17) Home Medications Scheduled Amitriptyline HCl (Amitriptyline HCl), 35 MG PO HS Ascorbic Acid (Ascorbic Acid), 500 MG PO DAILY Calcium Carbonate-Vitamin D (Calcium 600 + D), 1 TABS PO DAILY Cholecalciferol (Vitamin D3), 5,000 INTER.UNIT PO DAILY Cyanocobalamin (Vitamin B-12), 1,000 MCG PO DAILY Denosumab (Prolia), 60 MG SQ Q6 MONTHS Docusate Sodium (Stool Softener), 100 MG PO BID Ferrous Sulfate (Ferrous Sulfate), 325 MG PO QAM Fluticasone Propionate (Nasal) (Flonase Allergy Relief), 1 SPRAY FRANCK DAILY Meloxicam (Mobic), 7.5 MG PO DAILY Multivitamin (Multivitamin), 1 TAB PO DAILY Olopatadine Hydrochloride (Patanol), 1 DROP OP DAILY Phenytoin Sodium (Dilantin), 100 MG PO HS Phenytoin Sodium (Dilantin), 200 MG PO DAILY Prednisone (Prednisone), 5 MG PO HS Ranitidine HCl (Ranitidine HCl), 150 MG PO HS Ropinirole Hydrochloride (Requip), 0.25 MG PO HS Sennosides (Sennosides), 8.6 MG PO DAILY Simvastatin (Simvastatin), 20 MG PO HS Sulfasalazine (Azulfidine), 500 MG PO BID Tiotropium [place] (Spiriva Handihaler), 1 CAP INH QAM Scheduled PRN Albuterol Hfa (Ventolin Hfa), 2-4 PUFFS INH Q6H PRN for SOB/Wheezing Baclofen (Lioresal), 20 MG PO BID PRN for Muscle Spasms Menthol (Topical Analgesic) (Icy Hot Back Patch), 1 APPLN TOP DAILY PRN for Back Aches Oxycodone/Acetaminophen 5MG/325MG (Percocet 5MG/325MG), 1 TABLET PO Q4H PRN for Pain Review of Systems ROS per HPI, all other systems reviewed and negative Physical Ex - H&P Physical Exam Vital Signs Date Time Temp Pulse Resp B/P Pulse Ox O2 Delivery O2 Flow Rate FiO2 03/23/17 19:14 Room Air 03/23/17 18:58 65 22 163/68 92 Room Air 03/23/17 18:20 67 18 169/71 97 Room Air 03/23/17 17:12 65 14 171/56 95 Room Air 03/23/17 15:27 93 Room Air 03/23/17 15:27 154/63 149/77 128/82 03/23/17 15:22 66 03/23/17 15:12 36.6 70 18 151/79 93 Room Air General Appearance: + pertinent finding (restless in bed however in no acute distress) Head: normocephalic Eyes: + pertinent finding (right periorbital ecchymosis, right pupil opaque ) ENT: hearing grossly normal Neck: supple, no JVD Respiratory/Chest: no respiratory distress, + rhonchi (scattered throughout all brandin) Cardiovascular: regular rate, rhythm, + pertinent finding (+1 pedal edema) Abdomen/GI: normal bowel sounds, non tender, soft Extremities/Musculoskelatal: normal inspection, no calf tenderness Neurologic/Psych: no motor/sensory deficits, alert, oriented x 3, + pertinent finding (restless, anxious) Skin: normal color, warm/dry Diagnostics - H&P Diagnostics Laboratory Results Results Past 24 Hours Test 03/23/17 15:25 03/23/17 16:05 Range/Units Urine Color YELLOW Urine Appearance CLEAR CLEAR Urine pH 8.5 4.5-7.5 Urine Specific [place] 1.010 1.000-1.030 Urine Protein NEG NEG Urine Glucose (UA) NEG NEG Urine Ketones NEG NEG Urine Occult Blood NEG NEG Urine Nitrite NEG NEG Urine Bilirubin NEG NEG Urine Urobilinogen NEG NEG Urine Leukocyte Esterase NEG NEG Sodium Level 134 136-145 mmol/L Potassium Level 3.3 3.5-5.1 mmol/L Chloride Level 95 98-107 mmol/L Carbon Dioxide Level 32 21-32 mmol/L Anion Gap 7.0 3-11 mmol/L Blood Urea Nitrogen 11 7-18 mg/dl Creatinine 0.73 0.60-1.20 mg/dl Est Creatinine Clear Calc Drug Dose 43.2 ml/min Estimated GFR () 92.1 Estimated GFR (Non- 79.4 BUN/Creatinine Ratio 15.0 10-20 Random Glucose 97 70-99 mg/dl Calcium Level 8.4 8.5-10.1 mg/dl Phosphorus Level 3.0 2.5-4.9 mg/dl Magnesium Level 2.0 1.8-2.4 mg/dl Total Bilirubin 0.5 0.2-1 mg/dl Direct Bilirubin 0.1 0-0.2 mg/dl Aspartate Amino Transf (AST/SGOT) 24 15-37 U/L Alanine Aminotransferase (ALT/SGPT) 14 12-78 U/L Alkaline Phosphatase 114 45-117 U/L Total Creatine Kinase 178 26-192 U/L Troponin I < 0.015 0-0.045 ng/ml Pro-B-Type Natriuretic Peptide 577 0-1800 pg/ml Total Protein 7.4 6.4-8.2 gm/dl Albumin 4.0 3.4-5.0 gm/dl Thyroid Stimulating Hormone (TSH) 2.400 0.300-4.500 uIu/ml Urine Opiates Screen NEG NEG Urine Methadone, Qualitative NEG NEG Urine Barbiturates NEG NEG Phenytoin (Dilantin) Level 16.3 10-20 mcg/mL Urine Phencyclidine (PCP) Level NEG NEG Ur Amphetamine/Methamphetamine NEG NEG MDMA (Ecstasy) Screen NEG NEG Urine Benzodiazepines Screen NEG NEG Urine Cocaine Metabolite NEG NEG Urine Marijuana (THC) NEG NEG White Blood Count 6.17 4.8-10.8 K/uL Red Blood Count 2.37 4.2-5.4 M/uL Hemoglobin 9.0 12.0-16.0 g/dL Hematocrit 25.4 37-47 % Mean Corpuscular Volume 107.2 80-100 fL Mean Corpuscular Hemoglobin 38.0 25-34 pg Mean Corpuscular Hemoglobin Concent 35.4 32-36 g/dl Platelet Count 124 130-400 K/uL Mean Platelet Volume 8.1 7.4-10.4 fL Neutrophils (%) (Auto) 76.5 % Lymphocytes (%) (Auto) 14.3 % Monocytes (%) (Auto) 8.4 % Eosinophils (%) (Auto) 0.3 % Basophils (%) (Auto) 0.2 % Neutrophils # (Auto) 4.72 1.4-6.5 K/uL Lymphocytes # (Auto) 0.88 1.2-3.4 K/uL Monocytes # (Auto) 0.52 0.11-0.59 K/uL Eosinophils # (Auto) 0.02 0-0.5 K/uL Basophils # (Auto) 0.01 0-0.2 K/uL RDW Standard Deviation 54.5 36.4-46.3 fL RDW Coefficient of Variation 14.1 11.5-14.5 % Immature Granulocyte % (Auto) 0.3 % Immature Granulocyte # (Auto) 0.02 0.00-0.02 K/uL D-Dimer 3620 0-500 ug/L FEU Diagnostic Radiology CT Head Impression: No acute intracranial abnormality. CXR IMPRESSION: 1. Advanced emphysema. 2. No airspace consolidation or pleural effusion is seen. 3. A 1.5 cm nodular density is suggested just above the left hemidiaphragm. Correlation with a chest CT is recommended to exclude underlying neoplasm. LUMBAR SPINE XR IMPRESSION: Old mild compression deformities and degenerative changes as described above. No acute fracture or subluxation within the lumbar spine. CT C SPINE IMPRESSION: No fractures within the cervical spine. CT CHEST IMPRESSION: 1. There are secretions resulting in opacification of the right lower lobe bronchi with patchy airspace opacities and interstitial thickening at the base of the right lower lobe. This likely represents a pneumonia, possibly secondary to aspiration. Follow-up is recommended to ensure resolution. In addition, bronchoscopy could be performed for further evaluation. These findings can also be seen in the setting of an obstructing mass. However, this is considered less likely. 2. Mild mediastinal lymphadenopathy which may be reactive. 3. Emphysema. 4. No nodules identified within the base of the left lung to correspond to the chest x-ray abnormality. Impression - H&P Impression Assessment and Plan PNEUMONIA, LIKELY ASPIRATION - admit to tele - patient presenting after a fall and near syncopal event last night around 0100 in the morning - in the ER, found to have RLL pneumonia - noted immunocompromised state with sulfasalazine and chronic prednisone use - however no signs of sepsis; afebrile, no leukocytosis - hx of aspiration however patient has not been following aspirations precautions - s/p Unasyn and Azithromycin in the ED; will continue with WEAKNESS, FALLS, NEAR SYNCOPE - likely due to acute illness / orthostasis - head CT negative - IVF - check orthostatic BPs POSSIBLE LUNG MASS - noted on CT chest - pulmonary consult placed - lifelong heavy tobacco use ELEVATED D. DIMER - no hypoxia or tachycardia - check BLLE dopplers - unable to obtain CTA due to poor IV access; VQ scan ordered HX EPILEPSY - stable, continue Dilantin ANEMIA - chronic, baseline hgb ~ 10 - noted to be 9.0 - continue to monitor RHEUMATOID ARTHRITIS - holding sulfasalzine due to acute illness - continue chronic prednisone; BP stable, no role for stress dose steroids COPD, ONGOING TOBACCO USE - no wheezing on exam; started on nebs for pneumonia - patient counseled regarding tobacco cessation DVT PROPHYLAXIS - SCDs due to chronic anemia CODE STATUS - Patient is a full code as per my discussion with her. DISPO - In my clinical judgment this beneficiary meets acute admission criteria, established by [facility], that includes being hospitalized through two midnights. - PT/OT, case management consults; potential need for placement Advanced Directives Existing Living Will: No Existing Power of [employer] Sales Consultant: No VTE Prophylaxis VTE Risk Assessment Done? Y/N: Yes Risk Level: Moderate Given or contraindicated: SCD's Note ATTENDING ADDENDUM Record reviewed. Patient interviewed and examined. Care coordinated with ELSI Thomson. Please refer to her documentation for patient's history. Briefly, 76 YO female with history of COPD, seizure disorder, and other problems as noted. Fell last night in her bathroom and struck her head. The event was not witnessed. Patient feels that she did not lose consciousness. Daughter checked on her today. She seems to somewhat SOB. Patient denies fever or cough. She admit that she is not compliant with recommendations to thicken liquids to avoid aspiration. EXAM: General- appears to be chronically-ill, no acute distress VS- as noted HEENT- contusion mid forehead; right corneal opacity Neck- slight JVD Lungs- diffuse mild wheezing Heart- RRR, exam limited Abdomen- + BS, soft, nontender Extremities- no pretibial edema or calf tenderness Neuro- alert, somewhat confused, oriented, dystonic movements of mouth and extremities DATA: Hgb 9.0. D-dimer 3620. Na 134, K 3.3, BUN 11, creat 0.73. CPK 178, trop < 0.015. Phenytoin 16. Other lab studies as noted. CXR- emphysema, 1.5 cm nodular density LLL, patch infiltrate right base. X-rays lumbar spine- degen changes, old mild compression fractures CT head- negative. CT cervical spine- neg for fx. CT chest (without contrast)- secretions RLL bronchi + infiltrate RLL, no nodule left base. Venous duplex lower extremities- neg for DVT. EKG performed at 15:17 reviewed and demonstrated NSR at 70 / minute, no acute ST or T-wave abnormalities. ASSESSMENT AND PLAN: NEAR SYNCOPE VS SYNCOPE Possibly due to orthostasis. Consider arrhythmia, PE. ORTHOSTASIS Sys BP fell from 154 supine to 128 standing. IV fluids. Recheck orthostatic VS in a.m. ASPIRATION PNEUMONIA / ABNORMAL CT CT chest consistent with aspiration pneumonia. Patient is more dyspneic than baseline; no fever or leukocytosis. Rx with ampicillin / sulbactam + azithromycin. Aspiration precautions. Thicken liquids (if patient will permit). ADMISSIONS RECRUITER follow-up eval. Will need f/u CT to assure resolution of abnormalities. HYPOKALEMIA Replace. Follow. ELEVATED D-DIMER Pt more SOB than baseline. Also had syncope vs. near syncope. D-dimer in ED elevated at 3620. Could not do CTA due to poor venous access. Venous duplex lower extremities negative for DVT. Check VQ. SEIZURE DISORDER Phenytoin level 16. Doubt that fall was due to seizure, but will order seizure precautions. POSSIBLE NEUROLOGIC DISORDER Patient has orthostasis, fall, dysphagia, possible movement disorder, unusual affect. ? underlying neuro disorder (PSP, etc). PT / OT evals. Consult Neuro. ANEMIA Chronic. VTE PROPHYLAXIS Best not to use anticoagulants due to head injury and risk for ICH. SCD's. Ambulate. Please refer to MANAGER LOCAL Jerrica's documentation for discussion of other issues. Jose D Gu MD . Physical Exam (per Admitting): General Appearance: + pertinent finding (restless in bed however in no acute distress) Head: normocephalic Eyes: + pertinent finding (right periorbital ecchymosis, right pupil opaque ) ENT: hearing grossly normal Neck: supple, no JVD Respiratory/Chest: no respiratory distress, + rhonchi (scattered throughout all brandin) Cardiovascular: regular rate, rhythm, + pertinent finding (+1 pedal edema) Abdomen/GI: normal bowel sounds, non tender, soft Extremities/Musculoskelatal: normal inspection, no calf tenderness Neurologic/Psych: no motor/sensory deficits, alert, oriented x 3, + pertinent finding (restless, anxious) Skin: normal color, warm/dry Hospital Course GENERALIZED WEAKNESS/ FALLS SYNCOPE VS NEAR SYNCOPE ambulatory dysfunction vs seizure vs orthostatic CT head was negative No arrhythmia noted on tele monitor Ongoing PT/OT executive meeting manager had a meeting with isac and patient is accepted to and will go today Medically stable to go today Continue PT Take precaution to avoid fall PNEUMONIA Possible related to aspiration CT chest showed secretions resulting in opacification of the right lower lobe bronchi with patchy airspace opacities and interstitial thickening at the base of the right lower lobe. Immunocompromised state with sulfasalazine and chronic prednisone use Was on .D/C Azithromycin Received Unasyn Unasyn changed to Augmentin BID on 03/28/17 Repeat CXR in 6 weeks for follow up the opacities Will need to arrange for PFT as an outpatient Continue Augmentin to complete a total of 7 days course of abx. Clinically improved significantly ELEVATED D. DIMER Saturated well on 2L, no tachycardia Doppler of LEs negative V/Q scan showed probability for PE Stable HX EPILEPSY continue Dilantin phenytoin level 16 No seizure activity noted Will follow with neuro as an outpatient to consider to change Dilantin to Keppra seizures precaution ANEMIA chronic, baseline hgb ~ 10 Stable continue to monitor POSSIBLE NEUROLOGIC DISORDER Patient has orthostasis, fall, dysphagia, possible movement disorder, unusual affect. possible related to med MRI of the brain showed no evidence for an acute ischemic process. Neuro on board, recommended EMG as an outpatient Outpatient Neurology appointment in 2-3 weeks after discharge from rehab RHEUMATOID ARTHRITIS Will resume Sulfasalazine On Prednisone Stable CHRONIC PAIN Baclofen restarted with lower dose Continue oxycodone Stable COPD asymptomatic Continue neb treatment Continue spiriva TOBACCO ABUSE Counseling on smoking cessation DVT PROPHYLAXIS SCDs and ambulate CODE STATUS FULL CODE DISPOSITION Waiting for approval to discharge to [facility] Consultants: Neurology Pulmonary Discharge today Total time spent on discharge = 35 minutes This includes examination of the patient, discharge planning, medication reconciliation, and communication with other providers. Discharge Instructions Date of Service March 30, 2017. Admission Reason for Admission: Fall; Pneumonia Discharge Discharge Diagnosis / Problem: Ambulatory dysfunction,Syncope/Near syncope Discharge Goals Goal(s): Prevent Disease Progression Activity Recommendations Activity Level: Assistance Required Therapies: Physical Therapy, Occupational Therapy . Additional Information Patient informed of condition: Yes Advance Directives: No DNR: No Level of Care: Skilled Communicable Disease: No Prognosis: Stable Oxygen at (LPM): 2 liter/min via NC needed Tracey Catheter: No Instructions / Follow-Up Instructions / Follow-Up Please make an appointment with your PCP in 1 week,Dr Lin in 2-3 weeks and Pulmonary in 2-3 weeks .Repeat CXR in 6 weeks Current Hospital Diet Patient's current hospital diet: Regular Diet Discharge Diet Recommended Diet: Regular Diet Pending Studies Studies pending at discharge: no Medical Emergencies . Who to Call and When: Medical Emergencies: If at any time you feel your situation is an emergency, please call 911 immediately. . Non-Emergent Contact Non-Emergency issues call your: Primary Care Provider . Past History Medical & Surgical History: (1) Ambulatory dysfunction (2) Chronic obstructive lung disease (3) Anemia of chronic disorder (4) Seizure disorder (5) Rheumatoid arthritis (6) Epilepsy (7) Status post appendectomy (8) Status post tubal ligation (9) Status post hysterectomy (10) Status post exploratory laparotomy (11) Status post ovarian cystectomy (12) Status post tonsillectomy (13) Status post cataract extraction . "Provider Documentation" section prepared by Charissa Odell. . Core Measure Problem Core Measures: None <Electronically signed by Charissa Odell M.D.> Additional Copies To Doni Lewis M.D.
[2017-04-02 11:37] LABS: METHYLMALONIC ACID 114 NMOL/L (87-318); VIT B1 PLASMA(THIAMIN)**90353 20 nmol/L (8-30)
[2017-07-25] MEDS ORDERED: PRT40 PO (11:47)
[2017-07-25] MEDS ORDERED: ASPEC325 PO (11:47)
[2017-07-25] MEDS ORDERED: MOMLX PO (11:47)
[2017-07-25] MEDS ORDERED: RXC5 PO (11:47)
[2017-07-25] MEDS ORDERED: ULT50X PO (11:47)
[2017-07-25] MEDS ORDERED: MRLP17X PO (11:47)
[2017-07-25] MEDS ORDERED: DLCS PR (11:47)
[2017-07-25] MEDS ORDERED: MLXESC PO (11:47)
[2017-07-25] MEDS ORDERED: FRRG PO (12:02)
[2017-09-07] MEDS ORDERED: LEVO-366 PO (00:48)
== END 2017-03-30 15:15 | DRG 178 ==
LOC: CANRESERV → ENRESERVTM → ENRESERVDT → EDBD 14:54 → C.EDB 14:55 → C.MED 19:08 → CANBEDREQ 19:10
PROVIDERS: ADMIT Hospitalist; ATTEND Internal Medicine
DX: J69.0 Pneumonitis due to inhalation of food and vomit (principal); R64 Cachexia; Z68.1 Body mass index [BMI] 19.9 or less, adult; D63.8 Anemia in other chronic diseases classified elsewhere; M19.90 Unspecified osteoarthritis, unspecified site; H18.10 Bullous keratopathy, unspecified eye; F10.10 Alcohol abuse, uncomplicated; R26.9 Unspecified abnormalities of gait and mobility; F17.210 Nicotine dependence, cigarettes, uncomplicated; G62.9 Polyneuropathy, unspecified; J43.9 Emphysema, unspecified; G40.909 Epilepsy, unspecified, not intractable, without status epilepticus; G25.81 Restless legs syndrome; E78.00 Pure hypercholesterolemia, unspecified; M06.9 Rheumatoid arthritis, unspecified; Z91.048 Other nonmedicinal substance allergy status; H54.41 Blindness, right eye, normal vision left eye; Z79.899 Other long term (current) drug therapy; R91.8 Other nonspecific abnormal finding of lung field; Z90.49 Acquired absence of other specified parts of digestive tract; Z83.3 Family history of diabetes mellitus; Z82.0 Family history of epilepsy and other diseases of the nervous system; Z98.49 Cataract extraction status, unspecified eye; Z90.710 Acquired absence of both cervix and uterus; Z98.51 Tubal ligation status

== ENCOUNTER 2017-04-13 07:10 | Emergency (ER) | payer OTHER ==
[~2017-04-13] VITALS: Ht 149.9 cm; Wt 38.0 kg
[~2017-04-13 07:10] MED LIST changes: -ALBUAER19 INH; +AMOX1TAB43 PO; -AMT10 PO; -BACL20TA PO; +DLN100 PO; +LRS10 PO; +VNTHFA/IN INH
[2017-04-13 07:16] VITALS: TEMP 36.6; Ht 149.9 cm; Wt 38.0 kg
--- NOTE | 2017-04-13 07:24 | EMERGENCY ROOM VISIT NOTE ---
History Report prepared by Nydia: Annetta Carter Under the Supervision of: Dr. Erick Araya M.D. First contact with patient: 07:17 Chief Complaint: HIP PAIN Stated Complaint: HIP PAIN History of Present Illness The patient is a 76 year old female who presents to the Emergency Room with complaints of constant bilateral hip pain beginning 2 days ago. The patient states that she fell 2 days ago and per nursing staff the patient has been self medicating with oxycodone. The patient reports that she has been having bilateral leg pain and difficulty walking. She states that movement worsens her pain. She notes that she has a history of cornea problems. Source of History: patient Onset: 2 days ago Position: other (bilateral hip) Timing: constant Modifying Factors (Worsening): movement Note: Pt complains of bilateral leg pain and difficulty walking. Review of Systems All systems have been listed, reviewed, and are negative other than those previously mentioned. Please see Additional Medical History Sheet. Past Medical & Surgical Medical Problems: (1) Ambulatory dysfunction (2) Anemia of chronic disorder (3) Arthritis (4) Bullous keratopathy (5) Chronic obstructive lung disease (6) Claudication (7) Epilepsy (8) Hypercholesterolemia (9) Osteoporotic vertebral collapse (10) Restless leg syndrome (11) Rheumatoid arthritis (12) Seizure disorder (13) Status post repair hip fracture (14) Tobacco user Surgical Problems: (1) Status post appendectomy (2) Status post cataract extraction (3) Status post exploratory laparotomy (4) Status post hysterectomy (5) Status post ovarian cystectomy (6) Status post tonsillectomy (7) Status post tubal ligation Family History Diabetes mellitus BROTHER SISTER Social History Smoking Status: Current Every Day Smoker Alcohol Use: none Housing Status: lives alone Current/Historical Medications Scheduled Amitriptyline HCl (Amitriptyline HCl), 25 MG PO HS Amitriptyline HCl (Amitriptyline HCl), 10 MG PO HS Ascorbic Acid (Ascorbic Acid), 500 MG PO DAILY Baclofen (Baclofen), 5 MG PO BID Baclofen (Baclofen), 20 MG PO BID Calcium Carbonate-Vitamin D (Calcium 600 + D), 1 TABS PO DAILY Cholecalciferol (Vitamin D3), 5,000 INTER.UNIT PO DAILY Cyanocobalamin (Vitamin B-12), 1,000 MCG PO DAILY Docusate Sodium (Stool Softener), 100 MG PO BID Ferrous Sulfate (Ferrous Sulfate), 325 MG PO QAM Fluticasone Propionate (Nasal) (Flonase Allergy Relief), 1 SPRAY FRANCK DAILY Meloxicam (Mobic), 7.5 MG PO DAILY Multivitamin (Multivitamin), 1 TAB PO DAILY Olopatadine Hydrochloride (Patanol), 1 DROP OPB DAILY Phenytoin Sodium (Dilantin), 100 MG PO QPM Phenytoin Sodium (Dilantin), 200 MG PO QAM Prednisone (Prednisone), 5 MG PO HS Ranitidine HCl (Ranitidine HCl), 150 MG PO BID Ropinirole Hydrochloride (Requip), 0.25 MG PO HS Sennosides (Sennosides), 8.6 MG PO DAILY Simvastatin (Simvastatin), 20 MG PO HS Sulfasalazine (Azulfidine), 500 MG PO BID Tiotropium [place] (Spiriva Handihaler), 1 CAP INH QAM Scheduled PRN Albuterol Hfa (Ventolin Hfa), 2 PUFFS INH Q4 PRN for Wheezing Loratadine (Claritin), 10 MG PO DAILY PRN for ALLERGIES Menthol (Topical Analgesic) (Icy Hot Back Patch), 1 APPLN TOP DAILY PRN for Back Aches Oxycodone/Acetaminophen 5MG/325MG (Percocet 5MG/325MG), 1 TABLET PO Q4H PRN for Pain Allergies Coded Allergies: Dust (Verified Allergy, Mild, ITCHY EYES,RUNNY NOSE, 03/23/17) POLLEN (Verified Allergy, Mild, SEASONAL-ITCHY EYES,RUNNY NOSE, 03/23/17) Physical Exam Vital Signs Date Time Temp Pulse Resp B/P (MAP) Pulse Ox O2 Delivery O2 Flow Rate FiO2 04/13/17 15:01 86 16 165/68 93 Room Air 04/13/17 13:40 92 Room Air 04/13/17 13:34 100 Nasal Cannula 2.0 04/13/17 13:15 97 16 168/81 86 Room Air 04/13/17 11:15 85 16 157/62 92 Room Air 04/13/17 09:32 81 20 145/62 92 Room Air 04/13/17 07:16 36.6 89 20 168/123 92 Room Air Physical Exam GENERAL: Patient awake, alert, oriented x 3. Patient follows commands. Patient does not appear toxic. Patient is adequately hydrated and well- nourished. SKIN: No erythema, pallor, cyanosis or rash HEENT: Normal head, pupils equal, reactive to light and accommodation, opaque right cornea. Oral cavity and posterior pharynx appear normal. Patient has dentures. Neck: Without adenopathy, no neck vein distention. LUNGS: Clear to auscultation. No wheezes, no rales, no rhonchi. HEART: No murmurs. No gallops. No rubs ABDOMEN: No masses, no rebound, no hepatomegaly or splenomegaly. EXTREMITIES:. Patient does have more pain on the left side of the pelvis than the right. Patient has minimal tenderness to pelvic rock, complains of some pain but is able to flex and extend both legs NEUROLOGIC: Cranial nerves II-XII within normal limits. No gross motor sensory function deficits. Medical Decision & Procedures ER Provider Diagnostic Interpretation: X ray results are stated below per my interpretation and the radiologist's interpretation. PELVIS 1 OR 2 VIEW ROUTINE FINDINGS: There is a mildly displaced acute fracture of the left inferior pubic ramus and a moderately displaced fracture of the left superior pubic ramus with extension to the symphysis pubis. There is no acute fracture within the proximal left femur. A lucency projecting over the right femoral neck is likely artifactual. There is extensive vascular calcification. The patient is rotated. IMPRESSION: 1. Acute displaced left ischiopubic ring fracture with extension to the symphysis pubis. 2. Lucency projecting over the right femoral neck/intertrochanteric region which is likely artifactual. However, if right hip pain, right hip radiographs are recommended. Electronically signed by: Neville Wiseman M.D. 04/13/2017 8:08 AM Dictated Date/Time: 04/13/2017 8:03 AM Laboratory Results 04/13/17 07:30 04/13/17 07:30 Test 04/13/17 07:30 Red Blood Count 2.54 M/uL (4.2-5.4) Mean Corpuscular Volume 104.3 fL (80-100) Mean Corpuscular Hemoglobin 35.8 pg (25-34) Mean Corpuscular Hemoglobin Concent 34.3 g/dl (32-36) RDW Standard Deviation 56.8 fL (36.4-46.3) RDW Coefficient of Variation 15.2 % (11.5-14.5) Mean Platelet Volume 8.7 fL (7.4-10.4) Anion Gap 9.0 mmol/L (3-11) Est Creatinine Clear Calc Drug Dose 50.5 ml/min Estimated GFR () 104.2 Estimated GFR (Non- 89.9 BUN/Creatinine Ratio 21.1 (10-20) Calcium Level 8.6 mg/dl (8.5-10.1) Laboratory results as stated above per my review. Medications Administered Medications (Trade) Dose Ordered Sig/Maris Route Start Time Stop Time Status Last Admin Dose Admin Baclofen (Lioresal Tab) 10 mg ONE ONCE PO 04/13/17 10:30 04/13/17 10:31 DC 04/13/17 10:35 10 MG Oxycodone HCl (Roxicodone Immediate Rel Tab) 15 mg STK-MED ONCE .ROUTE 04/13/17 10:33 04/13/17 10:34 DC 04/13/17 10:35 15 MG Ranitidine HCl (zANTac TAB) 150 mg NOW ONCE PO 04/13/17 14:00 04/13/17 14:01 DC 04/13/17 14:16 150 MG Oxycodone HCl (Roxicodone Immediate Rel Tab) 5 mg NOW STAT PO 04/13/17 13:59 04/13/17 14:00 DC 04/13/17 14:17 5 MG ED Course 0717: Past medical records reviewed. The patient was evaluated in room B6. A complete history and physical examination was performed. 0829: I reevaluated and updated the patient. She is doing well. 0853: I spoke to Dr. Morrow and Kevin Cole PA-C and he believes that the patient can go to rehab. 1009: The patient is being evaluated for rehab facility. 1030: Oxycodone HCl 15mg PO, Baclofen 10mg PO. 1128: Upon reevaluation, the patient appeared to have improvement of her symptoms. I discussed today's findings with the patient. She verbalized agreement of the treatment plan. The patient will be transferred to [facility] for rehab AT 1500. 1359: Oxycodone HCl 5mg PO. 1400: Zantac Tab 150mg PO. 1455: Patient has requested more pain medication. At this point I do not believe she should get more. The patient is unhappy. Medical Decision Differential diagnosis includes pelvic fracture, hip fracture, and fall. Medication Reconciliation: I attest that I have personally reviewed the patient' s current medication list. Blood Pressure Screening: Patient was found to have a slightly elevated blood pressure due to circumstances. I do not believe that the patient requires hypertension monitoring. The patient is going to [facility]. The patient continues to complain about pain. She apparently has been taking large amounts of narcotics at home. She was given pain medication here but I'm unwilling to continue the large doses that she has requested. The patient was unhappy with my reluctance to give her more pain medication. Pain management may be an issue wherever she goes. Consults Time Called: 0850 Consulting Physician: Dr. Morrow and Kevin Cole PA-C - Orthopedics Returned Call: [phone] Morrow and Kevin Cole PA-C and they believe that the patient can go to rehab. Impression Primary Impression: Pelvic rim fracture Additional Impressions: Traumatic diastasis of symphysis pubis Anemia Scribe Attestation The scribe's documentation has been prepared under my direction and personally reviewed by me in its entirety. I confirm that the note above accurately reflects all work, treatment, procedures, and medical decision making performed by me. Departure Information Dispostion Rehab Inpatient Facility Referrals Doni Lewis M.D. (PCP) Patient Instructions [facility] Problem Qualifiers
[2017-04-13 07:44] LABS: HEMATOCRIT 26.5 % (37-47); MEAN CELL VOLUME 104.3 fL (80-100); MEAN CORPUSCULAR HEMOGLOBIN 35.8 pg (25-34); MEAN CORPUSCULAR HGB CONC 34.3 g/dl (32-36); MEAN PLATELET VOLUME 8.7 fL (7.4-10.4); PLATELET COUNT 135 K/uL (130-400); RED BLOOD COUNT 2.54 M/uL (4.2-5.4); WHITE BLOOD COUNT 8.91 K/uL (4.8-10.8)
--- NOTE | 2017-04-13 08:09 | DIAGNOSTIC IMAGING REPORT ---
PELVIS 1 OR 2 VIEW ROUTINE CLINICAL HISTORY: Fall. Bilateral pelvic and leg pain. COMPARISON STUDY: CT of the abdomen and pelvis January 16, 2016. FINDINGS: There is a mildly displaced acute fracture of the left inferior pubic ramus and a moderately displaced fracture of the left superior pubic ramus with extension to the symphysis pubis. There is no acute fracture within the proximal left femur. A lucency projecting over the right femoral neck is likely artifactual. There is extensive vascular calcification. The patient is rotated. IMPRESSION: 1. Acute displaced left ischiopubic ring fracture with extension to the symphysis pubis. 2. Lucency projecting over the right femoral neck/intertrochanteric region which is likely artifactual. However, if right hip pain, right hip radiographs are recommended. Electronically signed by: Neville Wiseman M.D. 04/13/2017 8:08 AM Dictated Date/Time: 04/13/2017 8:03 AM
[2017-04-13 08:10] LABS: BUN/CREATININE RATIO 21.1 (10-20); CREATININE 0.56 mg/dl (0.60-1.20); POTASSIUM 3.9 mmol/L (3.5-5.1)
[2017-04-13 08:33] LABS: CALCIUM 8.6 mg/dl (8.5-10.1)
[2017-04-13] MEDS ORDERED: AMT10 PO (08:52)
[2017-04-13] MEDS ORDERED: CLR10 PO (08:52)
[2017-04-13] MEDS ORDERED: LRS20 PO (08:52)
[2017-04-13 09:09] VITALS: BP 145/62
[2017-04-13] MEDS ORDERED: OXYCODONE HCL 15 MG TABCR (OXYCONTIN) PO ONE (10:30)
[2017-04-13] MEDS ORDERED: BACLOFEN 10 MG TAB PO ONE (10:30)
[2017-04-13] MEDS ORDERED: OXYCODONE HCL IR 5 MG TAB (IMMEDIATE RELEASE) ONE (10:33)
[2017-04-13] MEDS ORDERED: OXYCODONE HCL IR 5 MG TAB (IMMEDIATE RELEASE) PO STA (13:59)
[2017-04-13] MEDS ORDERED: RANITIDINE HCL 150 MG TAB PO ONE (14:00)
[2017-04-13 15:01] VITALS: BP 165/68; PULSE 86; O2SAT 93
[2017-07-25] MEDS ORDERED: DLCS PR (11:47)
[2017-07-25] MEDS ORDERED: PRT40 PO (11:47)
[2017-07-25] MEDS ORDERED: MOMLX PO (11:47)
[2017-07-25] MEDS ORDERED: RXC5 PO (11:47)
[2017-07-25] MEDS ORDERED: ASPEC325 PO (11:47)
[2017-07-25] MEDS ORDERED: MLXESC PO (11:47)
[2017-07-25] MEDS ORDERED: MRLP17X PO (11:47)
[2017-07-25] MEDS ORDERED: ULT50X PO (11:47)
[2017-07-25] MEDS ORDERED: FRRG PO (12:02)
[2017-09-07] MEDS ORDERED: LEVO-366 PO (00:48)
== END 2017-04-13 15:15 ==
LOC: EDBD 07:10 → C.EDB 07:11
DX: S32.810A Multiple fractures of pelvis with stable disruption of pelvic ring, initial encounter for closed fracture (principal); S33.4XXA Traumatic rupture of symphysis pubis, initial encounter; W18.30XA Fall on same level, unspecified, initial encounter; D64.9 Anemia, unspecified; R26.9 Unspecified abnormalities of gait and mobility; M19.90 Unspecified osteoarthritis, unspecified site; H18.10 Bullous keratopathy, unspecified eye; J44.9 Chronic obstructive pulmonary disease, unspecified; I73.9 Peripheral vascular disease, unspecified; G40.909 Epilepsy, unspecified, not intractable, without status epilepticus; E78.00 Pure hypercholesterolemia, unspecified; M80.88XA Other osteoporosis with current pathological fracture, vertebra(e), initial encounter for fracture; G25.81 Restless legs syndrome; F17.200 Nicotine dependence, unspecified, uncomplicated; Z90.710 Acquired absence of both cervix and uterus; Z83.3 Family history of diabetes mellitus

== ENCOUNTER 2017-07-21 17:00 | Inpatient (IN) | payer OTHER ==
[~2017-07-21] VITALS: Ht 149.9 cm; Wt 35.9 kg
[~2017-07-21 17:00] MED LIST changes: -AMOX1TAB43 PO; +AMT10 PO; +CLR10 PO; -DENO60SO SQ; +LRS20 PO
[2017-07-21] MEDS ORDERED: LACTATED RINGER'S 1000ML 1,000 ML IV SCH (17:17)
[2017-07-21] MEDS ORDERED: HYDROmorphone INJ 0.5 MG/0.5 ML SYR IV PRN (17:30)
[2017-07-21] MEDS ORDERED: ACETAMINOPHEN 500 MG TAB PO PRN (17:30)
[2017-07-21] MEDS ORDERED: LYSI500T34 PO (17:43)
[2017-07-21] MEDS ORDERED: ATOR-22 PO (17:43)
[2017-07-21] MEDS ORDERED: LEVE500T13 PO (17:43)
[2017-07-21 18:19] LABS: BASO % 0.3 %; BASO ABS # 0.02 K/uL (0-0.2); EOS % 2.1 %; HEMATOCRIT 24.7 % (37-47); IG% 0.3 %; LYMPH % 11.7 %; LYMPH ABS # 0.73 K/uL (1.2-3.4); MEAN CELL VOLUME 104.7 fL (80-100); MEAN CORPUSCULAR HEMOGLOBIN 37.7 pg (25-34); MEAN PLATELET VOLUME 8.2 fL (7.4-10.4); MONO % 4.3 %; NEUT % 81.3 %; PLATELET COUNT 118 K/uL (130-400); RED BLOOD COUNT 2.36 M/uL (4.2-5.4); WHITE BLOOD COUNT 6.23 K/uL (4.8-10.8)
[2017-07-21 18:27] LABS: INR 1.1 (0.9-1.1); PARTIAL THROMBOPLASTIN RATIO 1.2; PROTHROMBIN TIME (PATIENT) 11.3 SECONDS (9.0-12.0)
[2017-07-21 18:55] LABS: POTASSIUM 3.7 mmol/L (3.5-5.1)
[2017-07-21 18:56] LABS: COMPLETE YES
[2017-07-21 19:03] LABS: BUN/CREATININE RATIO 13.3 (10-20); CALCIUM 7.9 mg/dl (8.5-10.1); CREATININE 0.53 mg/dl (0.60-1.20)
--- NOTE | 2017-07-21 19:17 | DIAGNOSTIC IMAGING REPORT ---
CHEST ONE VIEW PORTABLE CLINICAL HISTORY: Trauma COMPARISON STUDY: 03/24/2017 FINDINGS: The heart is normal in size. There is mild chronic interstitial thickening. There is no lobar consolidation. No pneumothorax is visualized. Bilateral line shadows likely represent skin folds.[ IMPRESSION: Mild interstitial thickening. Suspected underlying emphysema. No acute findings. Electronically signed by: Stefano Colon M.D. 07/21/2017 7:15 PM Dictated Date/Time: 07/21/2017 7:14 PM
--- NOTE | 2017-07-21 19:18 | DIAGNOSTIC IMAGING REPORT ---
AP PELVIS AND RIGHT HIP 3 VIEWS CLINICAL HISTORY: Right hip pain status post trauma COMPARISON STUDY: No previous studies for comparison. FINDINGS: There are advanced degenerative changes present within the lower lumbar spine. There is an old ischio pubic ring fracture. There is an acute intertrochanteric right hip fracture. The bones are osteopenic. IMPRESSION: Acute intertrochanteric right hip fracture. Electronically signed by: Stefano Colon M.D. 07/21/2017 7:16 PM Dictated Date/Time: 07/21/2017 7:16 PM
[2017-07-21 20:04] LABS: URINE APPEARANCE CLEAR (CLEAR); URINE BILIRUBIN NEG (NEG); URINE COLOR YELLOW; URINE NITRITE NEG (NEG); URINE SPECIFIC GRAVITY 1.012 (1.000-1.030); UROBILINOGEN NEG (NEG); ZZURINE CULT IF INDIC CATH NO
[2017-07-21 20:05] LABS: MANUAL MICROSCOPIC REQUIRED? YES; REVIEW REQ? NO
[2017-07-21 20:15] LABS: URINE BACTERIA NEG (NEG); URINE WBC 0 /hpf (0-5)
[2017-07-21] MEDS ORDERED: BACLOFEN 10 MG TAB PO STA (20:51)
[2017-07-21 21:19] LABS: THYROID STIMULATING HORMONE 2.7 uIu/ml (0.300-4.500)
[2017-07-21] MEDS ORDERED: NALOXONE HCL 0.4 MG/1 ML VIAL/CARP IV PRN (21:45)
[2017-07-21] MEDS ORDERED: ONDANSETRON INJ 2 MG/ML 2 ML VIAL IV PRN (21:45)
[2017-07-21] MEDS ORDERED: ALBUT/IPRATROP 3MG/0.5MG NEB 3 ML VIAL INH PRN (21:45)
[2017-07-21] MEDS ORDERED: BISACODYL 10 MG SUPP PR PRN (21:45)
[2017-07-21] MEDS ORDERED: SOD PHOSPHATE/SOD BIPHOSPHATE ENEMA 132 ML BTL PR PRN (21:45)
[2017-07-21] MEDS ORDERED: ACETAMINOPHEN 325 MG TAB PO PRN ×2 (21:45)
[2017-07-21] MEDS ORDERED: LORATADINE 10 MG TAB PO PRN (21:45)
[2017-07-21] MEDS ORDERED: BACLOFEN 10 MG TAB PO PRN (21:45)
[2017-07-21] MEDS ORDERED: POLYETHYLENE (MIRALAX) 17 GM PACK PO PRN (21:45)
[2017-07-21] MEDS ORDERED: OXYCODONE/ACETAMINOPHEN 5-325 TAB PO PRN (21:45)
[2017-07-21] MEDS ORDERED: MAGNESIUM HYDROXIDE SUSP 30 ML UDC PO PRN (21:45)
--- NOTE | 2017-07-21 21:54 | DIAGNOSTIC IMAGING REPORT ---
RIGHT FEMUR 2 VIEWS ROUTINE CLINICAL HISTORY: Fracture COMPARISON: Pelvis and right hip dated 07/21/2017 DISCUSSION: There is an acute intertrochanteric right hip fracture. No additional femoral fractures are visualized. Vascular calcifications are evident. IMPRESSION: Acute intertrochanteric right hip fracture. No additional fractures identified. Electronically signed by: Stefano Colon M.D. 07/21/2017 9:53 PM Dictated Date/Time: 07/21/2017 9:52 PM
--- NOTE | 2017-07-21 22:07 | DIAGNOSTIC IMAGING REPORT ---
CT PELVIS NO IV/ORAL CONT (CT) CT DOSE: 271.81 mGy.cm CLINICAL HISTORY: Pelvic and hip pain status post trauma TECHNIQUE: Helical images were acquired in the transverse plane. Sagittal and coronal reformatted images were acquired. A dose lowering technique was utilized adhering to the principles of ALARA. COMPARISON STUDY: CT scan dated 01/16/2016, conventional radiographic study of the right hip dated 07/22/2017 FINDINGS: There is a right L5 transverse process fracture. There are bilateral sacral insufficiency fractures. There are persistent lytic foci within the left sacral alum. There is an acute intertrochanteric right hip fracture. There is a healing left ischio pubic ring fracture. There is indwelling Tracey catheter. There is a defect within the left femoral head and neck possibly related to an old screw/nail tract. IMPRESSION: 1. Acute right intertrochanteric hip fracture. 2. Healing left ischio pubic ring fracture 3. Bilateral sacral insufficiency fractures, likely subacute/chronic 4. Age-indeterminate fracture the right L5 transverse process Electronically signed by: Stefano Colon M.D. 07/21/2017 10:06 PM Dictated Date/Time: 07/21/2017 10:00 PM
[2017-07-21] MEDS: HYDROmorphone INJ 0.5 MG/0.5 ML SYR IV PRN (22:24)
[2017-07-21 22:30] VITALS: BP 124/49; PULSE 65; TEMP 36.7; Ht 149.9 cm; Wt 35.9 kg
[2017-07-21] MEDS ORDERED: NSS + 20MEQ KCL 1000ML 1,000 ML IV SCH (22:30)
[2017-07-21] MEDS ORDERED: ROPINIROLE HCL 0.25 MG TAB PO ONE (23:00)
[2017-07-21] MEDS ORDERED: LEVETIRACETAM 500 MG TAB PO ONE (23:00)
[2017-07-21] MEDS ORDERED: PHENYTOIN SODIUM ER 100 MG CAP PO ONE (23:00)
[2017-07-21 23:12] LABS: BASO % 0.2 %; BASO ABS # 0.01 K/uL (0-0.2); COMPLETE YES; HEMATOCRIT 26.8 % (37-47); IG% 0.2 %; LYMPH % 16.7 %; LYMPH ABS # 0.91 K/uL (1.2-3.4); MEAN CELL VOLUME 105.5 fL (80-100); MEAN CORPUSCULAR HEMOGLOBIN 36.6 pg (25-34); MEAN CORPUSCULAR HGB CONC 34.7 g/dl (32-36); MEAN PLATELET VOLUME 8.8 fL (7.4-10.4); MONO % 5.1 %; NEUT % 75.8 %; PLATELET COUNT 120 K/uL (130-400); RED BLOOD COUNT 2.54 M/uL (4.2-5.4); WHITE BLOOD COUNT 5.45 K/uL (4.8-10.8)
[2017-07-22] VITALS (7 sets, daily range): BP systolic 107–150; BP diastolic 48–67; PULSE 68–81; TEMP 36.3–37.1; O2SAT 94–100
--- NOTE | 2017-07-22 00:27 | EMERGENCY ROOM VISIT NOTE ---
History Report prepared by Nydia: Cathleen Thornton Under the Supervision of: Dr. Jose D Hurt M.D. First contact with patient: 17:10 Chief Complaint: HIP PAIN Stated Complaint: FALL/ RT HIP & LEG PAIN History of Present Illness The patient is a 76 year old female who presents to the Emergency Room with complaints of persistent right hip pain starting yesterday. Her knee buckled and she fell onto her right hip yesterday. She also twisted her right knee. She has been having pain since then and has been unable to walk because of the pain. She usually walks with a walker. She feels nauseous from the pain. Pt denies LOC, headache, visual changes, neck pain, chest pain, breathing difficulties, vomiting, abdominal pain, back pain, numbness, weakness, open wounds, active bleeding, or other complaints. She has broken her left hip before. She had a broken pelvis not long ago. Source of History: patient, family Onset: yesterday Position: other (right hip) Quality: other (fall, pain) Timing: other (persistent) Modifying Factors (Worsening): movement Associated Symptoms: + nausea Review of Systems See HPI for pertinent positives and negatives. A total of ten systems were reviewed and were otherwise negative. Past Medical & Surgical Medical Problems: (1) Ambulatory dysfunction (2) Anemia of chronic disorder (3) Arthritis (4) Bullous keratopathy (5) Chronic obstructive lung disease (6) Claudication (7) Epilepsy (8) Hip fracture (9) Hypercholesterolemia (10) Osteoporotic vertebral collapse (11) Restless leg syndrome (12) Rheumatoid arthritis (13) Seizure disorder (14) Status post repair hip fracture (15) Tobacco user Surgical Problems: (1) Status post appendectomy (2) Status post cataract extraction (3) Status post exploratory laparotomy (4) Status post hysterectomy (5) Status post ovarian cystectomy (6) Status post tonsillectomy (7) Status post tubal ligation Family History Diabetes mellitus BROTHER SISTER Social History Smoking Status: Current Every Day Smoker Alcohol Use: none Housing Status: lives alone Current/Historical Medications Scheduled Amitriptyline HCl (Amitriptyline HCl), 25 MG PO HS Amitriptyline HCl (Amitriptyline HCl), 10 MG PO HS Ascorbic Acid (Ascorbic Acid), 500 MG PO DAILY Atorvastatin (Lipitor), 20 MG PO DAILY Baclofen (Baclofen), 5 MG PO BID Calcium Carbonate-Vitamin D (Calcium 600 + D), 1 TABS PO DAILY Cholecalciferol (Vitamin D3), 5,000 INTER.UNIT PO DAILY Cyanocobalamin (Vitamin B-12), 1,000 MCG PO DAILY Docusate Sodium (Stool Softener), 100 MG PO BID Ferrous Sulfate (Ferrous Sulfate), 325 MG PO QAM Fluticasone Propionate (Nasal) (Flonase Allergy Relief), 1 SPRAY FRANCK DAILY Levetiracetam (Keppra), 500 MG PO BID Lysine Hcl (L-Lysine), 500 MG PO DAILY Meloxicam (Mobic), 7.5 MG PO DAILY Multivitamin (Multivitamin), 1 TAB PO DAILY Phenytoin Sodium (Dilantin), 100 MG PO QPM Phenytoin Sodium (Dilantin), 200 MG PO QAM Prednisone (Prednisone), 5 MG PO HS Ranitidine HCl (Ranitidine HCl), 150 MG PO BID Ropinirole Hydrochloride (Requip), 0.25 MG PO HS Sennosides (Sennosides), 8.6 MG PO DAILY Simvastatin (Simvastatin), 20 MG PO HS Sulfasalazine (Azulfidine), 500 MG PO BID Tiotropium Browning (Spiriva Handihaler), 1 CAP INH QAM Scheduled PRN Albuterol Hfa (Ventolin Hfa), 2 PUFFS INH Q4 PRN for Wheezing Loratadine (Claritin), 10 MG PO DAILY PRN for ALLERGIES Menthol (Topical Analgesic) (Icy Hot Back Patch), 1 APPLN TOP DAILY PRN for Back Aches Oxycodone/Acetaminophen 5MG/325MG (Percocet 5MG/325MG), 1 TABLET PO Q4H PRN for Pain Allergies Coded Allergies: Dust (Verified Allergy, Mild, ITCHY EYES,RUNNY NOSE, 03/23/17) POLLEN (Verified Allergy, Mild, SEASONAL-ITCHY EYES,RUNNY NOSE, 03/23/17) Physical Exam Vital Signs Date Time Temp Pulse Resp B/P (MAP) Pulse Ox O2 Delivery O2 Flow Rate FiO2 07/21/17 19:36 68 17 152/67 96 Nasal Cannula 2.0 07/21/17 18:36 73 07/21/17 17:08 36.8 69 92 166/77 Room Air Physical Exam GENERAL: Awake, alert, well-appearing, in no distress HENT: Normocephalic, atraumatic. Oropharynx unremarkable. EYES: Normal conjunctiva. Sclera non-icteric. Opaque right cornea. NECK: Supple. No nuchal rigidity. FROM. No JVD. RESPIRATORY: Clear to auscultation. CARDIAC: Regular rate, normal rhythm. Extremities warm and well perfused. Pulses equal. ABDOMEN: Soft, non-distended. No tenderness to palpation. No rebound or guarding. No masses. RECTAL: Deferred. MUSCULOSKELETAL: Chest examination reveals no tenderness. The back is symmetrical on inspection without obvious abnormality. There is no CVA tenderness to palpation. No joint edema. Shortening and external rotation of the right leg. ROM limited secondary to pain. Significant tenderness to palpation around the right hip joint. LOWER EXTREMITIES: Calves are equal size bilaterally and non-tender. No edema. No discoloration. NEURO: Normal sensorium. No sensory or motor deficits noted. SKIN: No rash or jaundice noted. Medical Decision & Procedures ER Provider Diagnostic Interpretation: Radiology results as stated below per my review and radiologist interpretation: CHEST ONE VIEW PORTABLE CLINICAL HISTORY: Trauma COMPARISON STUDY: 03/24/2017 FINDINGS: The heart is normal in size. There is mild chronic interstitial thickening. There is no lobar consolidation. No pneumothorax is visualized. Bilateral line shadows likely represent skin folds.[ IMPRESSION: Mild interstitial thickening. Suspected underlying emphysema. No acute findings. Electronically signed by: Stefano Colon M.D. 07/21/2017 7:15 PM Dictated Date/Time: 07/21/2017 7:14 PM AP PELVIS AND RIGHT HIP 3 VIEWS CLINICAL HISTORY: Right hip pain status post trauma COMPARISON STUDY: No previous studies for comparison. FINDINGS: There are advanced degenerative changes present within the lower lumbar spine. There is an old ischio pubic ring fracture. There is an acute intertrochanteric right hip fracture. The bones are osteopenic. IMPRESSION: Acute intertrochanteric right hip fracture. Electronically signed by: Stefano Colon M.D. 07/21/2017 7:16 PM Dictated Date/Time: 07/21/2017 7:16 PM Laboratory Results 07/21/17 18:11 Test 07/21/17 18:11 07/21/17 19:38 07/21/17 20:22 Basophilic Stippling OCCASIONAL Prothrombin Time 11.3 SECONDS (9.0-12.0) Prothromb Time International Ratio 1.1 (0.9-1.1) Activated Partial Thromboplast Time 30.6 SECONDS (21.0-31.0) Partial Thromboplastin Ratio 1.2 Anion Gap 5.0 mmol/L (3-11) Est Creatinine Clear Calc Drug Dose 50.4 ml/min Estimated GFR () 106.1 Estimated GFR (Non- 91.6 BUN/Creatinine Ratio 13.3 (10-20) Calcium Level 7.9 mg/dl (8.5-10.1) Urine Color YELLOW Urine Appearance CLEAR (CLEAR) Urine pH 7.0 (4.5-7.5) Urine Specific Arroyo 1.012 (1.000-1.030) Urine Protein NEG (NEG) Urine Glucose (UA) NEG (NEG) Urine Ketones NEG (NEG) Urine Occult Blood TRACE (NEG) Urine Nitrite NEG (NEG) Urine Bilirubin NEG (NEG) Urine Urobilinogen NEG (NEG) Urine Leukocyte Esterase NEG (NEG) Urine WBC (Auto) /hpf (0-5) Urine RBC (Auto) /hpf (0-4) Urine Hyaline Casts (Auto) /lpf (0-5) Urine Epithelial Cells (Auto) /lpf (0-5) Urine Bacteria (Auto) (NEG) Urine RBC 5-10 /hpf (0-4) Urine WBC 0 /hpf (0-5) Urine Epithelial Cells 0-5 /lpf (0-5) Urine Bacteria NEG (NEG) Magnesium Level 2.0 mg/dl (1.8-2.4) Total Bilirubin 0.5 mg/dl (0.2-1) Direct Bilirubin 0.2 mg/dl (0-0.2) Aspartate Amino Transf (AST/SGOT) 19 U/L (15-37) Alanine Aminotransferase (ALT/SGPT) 12 U/L (12-78) Alkaline Phosphatase 107 U/L (45-117) Total Protein 6.2 gm/dl (6.4-8.2) Albumin 3.1 gm/dl (3.4-5.0) Thyroid Stimulating Hormone (TSH) 2.700 uIu/ml (0.300-4.500) Phenytoin (Dilantin) Level 16.4 mcg/mL (10-20) Laboratory results reviewed by me Medications Administered Medications (Trade) Dose Ordered Sig/Maris Route Start Time Stop Time Status Last Admin Dose Admin Lactated Ringer's 1,000 ml @ 75 mls/hr [id number] IV 07/21/17 17:17 07/21/17 22:19 DC 07/21/17 18:59 75 MLS/HR Acetaminophen (Tylenol Tab) 1,000 mg Q6H PRN PO 07/21/17 17:30 07/21/17 22:19 DC 07/21/17 19:00 1,000 MG Hydromorphone HCl (Dilaudid Inj) 0.25 mg Q20M PRN IV 07/21/17 17:30 07/21/17 22:19 DC 07/21/17 19:00 0.25 MG ECG Indication: other (fall) Rate (beats per minute): 69 Rhythm: normal sinus Findings: nonspecific-ST abn, no acute ischemic change, no ectopy ED Course 1716: The patient was evaluated in room C5. A complete history and physical exam was performed. 1717: Lactated Ringer's 1000 ml @ 75 mls/hr IV. 1730: Dilaudid Inj 0.25 mg IV, Acetaminophen 1000 mg PO. 1850: I reevaluated the patient. She is doing better. She is being taken to X- ray. 1954: I discussed the patient's case [place]. [place] [facility] [place]. He recommends CT pelvis. 2000: [facility] the [facility] The patient will be evaluated for further treatment and disposition. 2008: Upon reexamination, the patient was doing well. I discussed the test results and treatment plan with her. The patient will be evaluated for further management. Medical Decision Prior records reviewed and summarized above. Triage Nursing notes reviewed and agree them. Additional history obtained from the patient's daughter. The patient's history was concerning for traumatic injury. Differential diagnosis: Etiologies such as fracture, dislocation, neurovascular compromise, compartment syndrome, soft tissue injury, as well as others were entertained. Physical examination: Consistent with an isolated hip injury. ER treatment provided: IV lock IV Dilaudid NPO Bedrest On reassessment the patient felt better. Diagnostics interpreted by me: ECG: No ischemia The labs revealed an unremarkable CBC, coags, and chemistry panel except for anemia. Urinalysis unremarkable. Imaging studies: Xrays and CT scans as above. Consultation: A consultation was placed with orthopedics and internal medicine. The case was discussed and diagnostics were reviewed. The patient was evaluated in the ER for further treatment. Medication Reconcilliation Current Medication List: was personally reviewed by me Blood Pressure Screening Patient's blood pressure: Elevated blood pressure Will be further evaluated by hospitalist. Consults Time Called: 1944 Consulting Physician: Dr. Gilbert, [facility] [place] Returned Call: 1954 I discussed the patient's case with him. He recommends CT pelvis. Additional Consults: Time Called: 1958 Consulted Physician: Dr. Mitchell [facility] hospitalist Returned Call: 2000 Additional Comments: Discussed the patient's case. The patient will be evaluated for further treatment and disposition. Impression Primary Impression: Hip fracture, right Additional Impressions: Anemia subacute pelvic fracture age indeterminant transverse process fracture L5 Scribe Attestation The scribe's documentation has been prepared under my direction and personally reviewed by me in its entirety. I confirm that the note above accurately reflects all work, treatment, procedures, and medical decision making performed by me. Departure Information Dispostion Being Evaluated By Hospitalist Referrals Doni Lewis M.D. (PCP) Patient Instructions My [facility] [address] Problem Qualifiers
[2017-07-22] MEDS: HYDROmorphone INJ 0.5 MG/0.5 ML SYR IV PRN ×2 (05:13→08:14)
[2017-07-22] MEDS ORDERED: CEFAZOLIN 2000 MG/60 ML D5W 60 ML IV SCH (06:00)
[2017-07-22 06:37] LABS: BUN/CREATININE RATIO 17.6 (10-20); CALCIUM 8.2 mg/dl (8.5-10.1); CREATININE 0.41 mg/dl (0.60-1.20); POTASSIUM 3.8 mmol/L (3.5-5.1)
--- NOTE | 2017-07-22 07:41 | HISTORY & PHYSICAL EXAMINATION ---
DATE OF ADMISSION: 07/21/2017 PRIMARY CARE PHYSICIAN: Dr. Lewis. CHIEF COMPLAINT: Right hip pain. HISTORY OF PRESENT ILLNESS: History obtained from patient, [id number], and records. Medical history significant for COPD, ongoing tobacco abuse, hypertension, hyperlipidemia, seizure disorder, rheumatoid arthritis on chronic steroid therapy, chronic anemia (baseline hemoglobin of 8-9), restless legs syndrome, aspiration risk as per records. Recent confinement last March 2017 for generalized weakness, fall, syncope versus near syncope, and aspiration pneumonia. Two nights ago, the patient was reaching for something in the cupboard subsequently fell down, landing on her right hip. PX patient noted excruciating right hip pain. She could not get up. No chest pain, no unusual shortness of breath, no syncope. Usual smoker's cough cough symptoms. Son did not want to bring her to the hospital because she was afraid of hospitals. [id number] brought her to the ER the following day. MEDICAL HISTORY: As above. TTE 2016, preserved systolic function EF of 65% SURGERIES: Appendectomy, cataract surgery, exploratory laparotomy, hysterectomy, gynecologic procedures, tonsillectomy. HOME MEDICATIONS: Include vitamin D3, vitamin B12, stool softener, ferrous sulfate, Flonase, Keppra, Claritin, Mobic, menthol, multivitamins, Dilantin, prednisone, Requip, Zantac, sennosides, simvastatin, Lipitor, sulfasalazine, Spiriva, Ventolin, ascorbic acid, amitriptyline, Lipitor, calcium. ALLERGIES: DUST AND POLLEN. FAMILY HISTORY: Diabetes. PERSONAL AND SOCIAL HISTORY: One pack daily. No chronic intake of alcohol. 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 Lives alone. REVIEW OF SYSTEMS: As per HPI, all other ROS negative. PHYSICAL EXAMINATION: VITAL SIGNS: Blood pressure was noted to be 166/77, later 159/60, pulse rate 68, RR 17, temperature 36.8, sats 94 on room air. GENERAL: Noted to be hyposthenic, uncomfortable, no respiratory distress. SKIN: Pallor. HEENT: Pale palpebral conjunctivae. Dry mucosa. NECK: No JVD. Supple. CHEST: Decreased breath sounds. Occasional wheeze. HEART: Regular rate and rhythm. ABDOMEN: Soft. EXTREMITIES: Tenderness in right hip. NEUROLOGIC: No gross focality. LABS: Hemoglobin noted to be 8.9, hematocrit 24.7, white count 6.23, platelets 118. Sodium noted to be 135, potassium 3.7, chloride 103, CO2 22, creatinine 0.5, glucose 98. Chest x-ray showed emphysema, some interstitial thickening. Hip x-ray showed right hip fracture. EKG as per my interpretation; rate 70, normal sinus rhythm. T-wave flattening lateral leads. ASSESSMENT: 1. Right hip fracture secondary to mechanical fall. Hx rheumatoid arthritis on chronic steroid therapy 2. chronic obstructive pulmonary disease, ongoing tobacco abuse. Pulmonary status baseline 3. known aspiration risk. 4. Seizure disorder, stable on meds. 5. Chronic anemia, hemoglobin at baseline. 6. Malnutrition, low BMI. 7. episodic thrombocytopenia Patient's platelet count has been on the lower normal side of late. Thrombocytopenic episodes in 2016 and 2017 on review of past lab work. ? med related (Sulfasalazine, Dilantin, or Meloxicam ). PLAN: F Orthopedics consult RE right hip fracture. ER physician already in touch with Dr. Graham. No medical contraindication to contemplated procedure. Continue daily prednisone. Continue home Dilantin. Watch platelets. Nutrition consult Nicotine patch DVT prophylaxis, SCDs for now re thrombocytopenia Full code. Patient's [id number] requesting updates from providers. Christine Beckford (contact number [phone]) ROBBY
[2017-07-22] MEDS: FLUTICASONE PROPIONATE NA SPR 16 GM BTL NAE SCH (08:05)
[2017-07-22] MEDS: PHENYTOIN SODIUM ER 100 MG CAP PO SCH ×2 (08:05→21:38)
[2017-07-22] MEDS: TIOTROPIUM BROMIDE 5 PUFF/90 MCG INH INH SCH (08:05)
[2017-07-22] MEDS: ATORVASTATIN 20 MG TAB PO SCH (08:06)
[2017-07-22] MEDS: LEVETIRACETAM 500 MG TAB PO SCH ×2 (08:06→21:38)
[2017-07-22] MEDS: RANITIDINE HCL 150 MG TAB PO SCH ×2 (08:06→21:11)
[2017-07-22] MEDS: BACLOFEN 10 MG TAB PO SCH ×2 (08:06→19:32)
[2017-07-22] MEDS: NICOTINE 21 MG/24 HR TDSY TD SCH (08:07)
[2017-07-22] MEDS: CALCIUM 600MG + VIT D 400 IU TAB PO SCH (08:08)
[2017-07-22] MEDS ORDERED: SENNA 8.6 MG TAB PO SCH (09:00)
[2017-07-22] MEDS ORDERED: FERROUS SULFATE 325 MG TAB PO SCH (09:00)
[2017-07-22] MEDS ORDERED: MULTIVITAMIN TAB PO SCH (09:00)
[2017-07-22] MEDS ORDERED: MELOXICAM 7.5 MG TAB PO SCH (09:00)
--- NOTE | 2017-07-22 10:55 | Orthopedic Consultation ---
Orthopedic Consultation Date of Consultation: Jul 22, 2017. Attending Physician: Phoenix Fox DO Reason for Consultation: Right hip IT fracture History of Present Illness Patient reports falling 2 days prior while ambulating at home in her kitchen. She subsequently reported pain and inability to ambulate since falling. She denies hitting her head or associated injuries She was accompanied by her daughter in law who makes the medical decisions for her. She denies numbness or tingling in lower extremities. Past Medical/Surgical History Medical Problems: (1) Anemia Status: Acute (2) Anemia Status: Acute (3) Hip fracture, right Status: Acute (4) Pelvic rim fracture Status: Acute (5) Traumatic diastasis of symphysis pubis Status: Acute Family History Diabetes mellitus BROTHER SISTER Social History Smoking Status: Current Every Day Smoker Alcohol Use: none Housing Status: lives alone Allergies Coded Allergies: Dust (Verified Allergy, Mild, ITCHY EYES,RUNNY NOSE, 03/23/17) POLLEN (Verified Allergy, Mild, SEASONAL-ITCHY EYES,RUNNY NOSE, 03/23/17) Home Medications Scheduled Amitriptyline HCl (Amitriptyline HCl), 25 MG PO HS Amitriptyline HCl (Amitriptyline HCl), 10 MG PO HS Ascorbic Acid (Ascorbic Acid), 500 MG PO DAILY Atorvastatin (Lipitor), 20 MG PO DAILY Baclofen (Baclofen), 5 MG PO BID Calcium Carbonate-Vitamin D (Calcium 600 + D), 1 TABS PO DAILY Cholecalciferol (Vitamin D3), 5,000 INTER.UNIT PO DAILY Cyanocobalamin (Vitamin B-12), 1,000 MCG PO DAILY Docusate Sodium (Stool Softener), 100 MG PO BID Ferrous Sulfate (Ferrous Sulfate), 325 MG PO QAM Fluticasone Propionate (Nasal) (Flonase Allergy Relief), 1 SPRAY FRANCK DAILY Levetiracetam (Keppra), 500 MG PO BID Lysine Hcl (L-Lysine), 500 MG PO DAILY Meloxicam (Mobic), 7.5 MG PO DAILY Multivitamin (Multivitamin), 1 TAB PO DAILY Phenytoin Sodium (Dilantin), 100 MG PO QPM Phenytoin Sodium (Dilantin), 200 MG PO QAM Prednisone (Prednisone), 5 MG PO HS Ranitidine HCl (Ranitidine HCl), 150 MG PO BID Ropinirole Hydrochloride (Requip), 0.25 MG PO HS Sennosides (Sennosides), 8.6 MG PO DAILY Simvastatin (Simvastatin), 20 MG PO HS Sulfasalazine (Azulfidine), 500 MG PO BID Tiotropium [place] (Spiriva Handihaler), 1 CAP INH QAM Scheduled PRN Albuterol Hfa (Ventolin Hfa), 2 PUFFS INH Q4 PRN for Wheezing Loratadine (Claritin), 10 MG PO DAILY PRN for ALLERGIES Menthol (Topical Analgesic) (Icy Hot Back Patch), 1 APPLN TOP DAILY PRN for Back Aches Oxycodone/Acetaminophen 5MG/325MG (Percocet 5MG/325MG), 1 TABLET PO Q4H PRN for Pain Current Inpatient Medications Current Inpatient Medications Medications (Trade) Dose Ordered Sig/Maris Route Start Time Stop Time Status Last Admin Dose Admin Acetaminophen (Tylenol Tab) 650 mg Q4H PRN PO 07/21/17 21:45 08/20/17 21:44 Naloxone HCl (Narcan Inj) 0.1 mg PRN PRN IV 07/21/17 21:45 08/20/17 21:44 Senna/Docusate Sodium (Senokot S Tab) 2 tab HS PO 07/22/17 21:00 08/21/17 20:59 Polyethylene (Miralax Powder Packet) 17 gm DAILY PRN PO 07/21/17 21:45 08/20/17 21:44 Magnesium Hydroxide (Milk Of Magnesia Susp) 30 ml DAILY PRN PO 07/21/17 21:45 08/20/17 21:44 Bisacodyl (Dulcolax Supp) 10 mg DAILY PRN GA 07/21/17 21:45 08/20/17 21:44 Sodium Biphosphate/ Sodium Phosphate (Fleet Enema) 132 ml PRN PRN GA 07/21/17 21:45 Ondansetron HCl (Zofran Inj) 4 mg Q6H PRN IV 07/21/17 21:45 08/20/17 21:44 Oxycodone/ Acetaminophen (Percocet 5-325mg Tab) pain not relieved by tyle... Q4H PRN PO 07/21/17 21:45 08/04/17 21:44 07/22/17 02:03 2 TAB Hydromorphone HCl (Dilaudid Inj) 0.25 mg Q2H PRN IV 07/21/17 21:45 08/04/17 21:44 07/22/17 08:14 0.25 MG Potassium Chloride/Sodium Chloride 1,000 ml @ 40 mls/hr Q24H IV 07/21/17 22:30 08/20/17 22:29 07/21/17 23:38 40 MLS/HR Baclofen (Lioresal Tab) 2.5 mg TID PRN PO 07/21/17 21:45 08/20/17 21:44 07/21/17 23:45 2.5 MG Amitriptyline HCl (Elavil Tab) 35 mg HS PO 07/22/17 21:00 08/21/17 20:59 Atorvastatin Calcium (Lipitor Tab) 20 mg DAILY PO 07/22/17 09:00 08/21/17 08:59 07/22/17 08:06 20 MG Baclofen (Lioresal Tab) 5 mg BID PO 07/22/17 09:00 08/21/17 08:59 07/22/17 08:06 5 MG Ferrous Sulfate (Feosol Tab) 325 mg QAM PO 07/22/17 09:00 08/21/17 08:59 Fluticasone Propionate (Flonase Nasal [place]) 1 sprays DAILY FRANCK 07/22/17 09:00 08/21/17 08:59 07/22/17 08:05 1 SPRAYS Levetiracetam (Keppra Tab) 500 mg BID PO 07/22/17 09:00 08/21/17 08:59 07/22/17 08:06 500 MG Loratadine (Claritin Tab) 10 mg DAILY PRN PO 07/21/17 21:45 08/20/17 21:44 Meloxicam (Mobic Tab) 7.5 mg DAILY PO 07/22/17 09:00 08/21/17 08:59 Multivitamins (Multivitamin Tab) 1 tab DAILY PO 07/22/17 09:00 08/21/17 08:59 Phenytoin Sodium (Dilantin Er Cap) 100 mg QPM PO 07/22/17 21:00 08/21/17 20:59 Phenytoin Sodium (Dilantin Er Cap) 200 mg QAM PO 07/22/17 09:00 08/21/17 08:59 07/22/17 08:05 200 MG Prednisone (PredniSONE TAB) 5 mg HS PO 07/22/17 21:00 08/21/17 20:59 Ranitidine HCl (zANTac TAB) 150 mg BID PO 07/22/17 09:00 08/21/17 08:59 07/22/17 08:06 150 MG Ropinirole HCl (Requip Tab) 0.25 mg HS PO 07/22/17 21:00 08/21/17 20:59 Senna (Senokot Tab) 8.6 mg DAILY PO 07/22/17 09:00 08/21/17 08:59 Tiotropium [place] (Spiriva Handihaler Inhaler) 1 puff QAM INH 07/22/17 09:00 08/21/17 08:59 07/22/17 08:05 1 PUFF Calcium/Vitamin D (Caltrate Plus Tab) 1 tab DAILY PO 07/22/17 09:00 08/21/17 08:59 Albuterol/ Ipratropium (Duoneb) 3 ml Q2H PRN INH 07/21/17 21:45 08/20/17 21:44 Nicotine (Nicoderm Cq 21MG Patch) 1 patch QAM TD 07/22/17 09:00 08/21/17 08:59 Miscellaneous (Remove Nicoderm Patch) 1 ea HS N/A 07/22/17 21:00 08/21/17 20:59 Review of Systems Constitutional: No fever, No chills, No sweats, No weight loss, No weakness, No fatigue, No problem reported Eyes: No worsening of vision, No eye pain, No redness, No discharge, No diplopia, No problem reported ENT: No hearing loss, No unusual epistaxis, No nasal symptoms, No sore throat, No tinnitus, No dental problems, No trouble swallowing, No problem reported Respiratory: No cough, No sputum, No wheezing, No shortness of breath, No dyspnea on exertion, No dyspnea at rest, No hemoptysis, No problem reported Cardiovascular: No chest pain, No orthopnea, No PND, No edema, No claudication , No palpitations, No problem reported Abdomen: No pain, No nausea, No vomiting, No diarrhea, No constipation, No GI bleeding, No problem reported Musculoskeletal: + joint pain Genitourinary - Female: No dysuria, No urinary frequency, No urinary urgency, No urinary incontinence, No urinary retention, No hematuria, No dysmenorrhea, No menorrhagia, No metrorrhagia, No rash, No vaginal bleeding, No vaginal discharge, No vaginal itching, No vulvodynia, No , No problem reported Neurologic: No memory loss, No paralysis, No weakness, No numbness/tingling, No vertigo, No balance problems, No problem reported Psychiatric: No depression symptoms, No anhedonism, No anxiety, No insomnia, No substance abuse, No problem reported Endocrine: No fatigue, No excessive thirst, No excessive urination, No problem reported Hematologic / Lymphatic: No abnormal bleeding/bruising, No clotting problems, No swollen lymph nodes, No night sweats, No problem reported Integumentary: No rash, No itch, No new/changing skin lesions, No color change , No bleeding, No problem reported Allergic / Immunologic: No environmental allergies, No seasonal allergies, No pet sensitivities, No food allergies, No hives, No frequent infections, No poor healing, No prolonged convalescence, No problem reported Physical Exam Date Time Temp Pulse Resp B/P (MAP) Pulse Ox O2 Delivery O2 Flow Rate FiO2 07/22/17 07:43 36.7 68 17 107/62 (77) 99 Nasal Cannula 2.0 07/22/17 07:40 Nasal Cannula 2.0 07/21/17 23:27 Nasal Cannula 2.0 07/21/17 22:30 36.7 65 18 124/49 Nasal Cannula 2.0 07/21/17 21:12 67 20 159/48 94 Room Air 07/21/17 19:36 68 17 152/67 96 Nasal Cannula 2.0 07/21/17 18:36 73 07/21/17 17:08 36.8 69 92 166/77 Room Air AOx3, NAD Bilateral UE, NVSI +R/U/AIN/PIN/M SILT grossly, +2 radial pulse, full painless ROM, no ecchymosis LLE NVSI +EHL/FHL/TA/GS SILT grossly, CR< 2 seconds, + 2 DP pulse, compartments soft NT, full painless ROM RLE NVSI +EHL/FHL/TA/GS SILT grossly, CR< 2 seconds, + 2 DP pulse, compartments soft NT, + pain with ROM of hip, skin intact Laboratory Results Last 24 Hours Test 07/21/17 18:11 07/21/17 19:38 07/21/17 20:22 07/21/17 22:45 White Blood Count 6.23 K/uL 5.45 K/uL Red Blood Count 2.36 M/uL 2.54 M/uL Hemoglobin 8.9 g/dL 9.3 g/dL Hematocrit 24.7 % 26.8 % Mean Corpuscular Volume 104.7 fL 105.5 fL Mean Corpuscular Hemoglobin 37.7 pg 36.6 pg Mean Corpuscular Hemoglobin Concent 36.0 g/dl 34.7 g/dl Platelet Count 118 K/uL 120 K/uL Mean Platelet Volume 8.2 fL 8.8 fL Neutrophils (%) (Auto) 81.3 % 75.8 % Lymphocytes (%) (Auto) 11.7 % 16.7 % Monocytes (%) (Auto) 4.3 % 5.1 % Eosinophils (%) (Auto) 2.1 % 2.0 % Basophils (%) (Auto) 0.3 % 0.2 % Neutrophils # (Auto) 5.06 K/uL 4.13 K/uL Lymphocytes # (Auto) 0.73 K/uL 0.91 K/uL Monocytes # (Auto) 0.27 K/uL 0.28 K/uL Eosinophils # (Auto) 0.13 K/uL 0.11 K/uL Basophils # (Auto) 0.02 K/uL 0.01 K/uL RDW Standard Deviation 56.2 fL 56.9 fL RDW Coefficient of Variation 15.1 % 15.0 % Immature Granulocyte % (Auto) 0.3 % 0.2 % Immature Granulocyte # (Auto) 0.02 K/uL 0.01 K/uL Basophilic Stippling OCCASIONAL Prothrombin Time 11.3 SECONDS Prothromb Time International Ratio 1.1 Activated Partial Thromboplast Time 30.6 SECONDS Partial Thromboplastin Ratio 1.2 Sodium Level 135 mmol/L Potassium Level 3.7 mmol/L Chloride Level 103 mmol/L Carbon Dioxide Level 27 mmol/L Anion Gap 5.0 mmol/L Blood Urea Nitrogen 7 mg/dl Creatinine 0.53 mg/dl Est Creatinine Clear Calc Drug Dose 50.4 ml/min Estimated GFR () 106.1 Estimated GFR (Non- 91.6 BUN/Creatinine Ratio 13.3 Random Glucose 98 mg/dl Calcium Level 7.9 mg/dl Urine Color YELLOW Urine Appearance CLEAR Urine pH 7.0 Urine Specific [place] 1.012 Urine Protein NEG Urine Glucose (UA) NEG Urine Ketones NEG Urine Occult Blood TRACE Urine Nitrite NEG Urine Bilirubin NEG Urine Urobilinogen NEG Urine Leukocyte Esterase NEG Urine WBC (Auto) /hpf Urine RBC (Auto) /hpf Urine Hyaline Casts (Auto) /lpf Urine Epithelial Cells (Auto) /lpf Urine Bacteria (Auto) Urine RBC 5-10 /hpf Urine WBC 0 /hpf Urine Epithelial Cells 0-5 /lpf Urine Bacteria NEG Magnesium Level 2.0 mg/dl Total Bilirubin 0.5 mg/dl Direct Bilirubin 0.2 mg/dl Aspartate Amino Transf (AST/SGOT) 19 U/L Alanine Aminotransferase (ALT/SGPT) 12 U/L Alkaline Phosphatase 107 U/L Total Protein 6.2 gm/dl Albumin 3.1 gm/dl Thyroid Stimulating Hormone (TSH) 2.700 uIu/ml Phenytoin (Dilantin) Level 16.4 mcg/mL Test 07/22/17 05:02 Sodium Level 136 mmol/L Potassium Level 3.8 mmol/L Chloride Level 104 mmol/L Carbon Dioxide Level 26 mmol/L Anion Gap 6.0 mmol/L Blood Urea Nitrogen 7 mg/dl Creatinine 0.41 mg/dl Est Creatinine Clear Calc Drug Dose 65.1 ml/min Estimated GFR () 115.5 Estimated GFR (Non- 99.7 BUN/Creatinine Ratio 17.6 Random Glucose 90 mg/dl Calcium Level 8.2 mg/dl Assessment & Plan (1) Hip fracture, right Right Hip IT fracture, old left Inferior/Superior pubic rami fractures -NWB RLE -Pain control -Hold any anticoagulation -IV fluids -Tracey -Plan is for operative fixation of the right hip today 07/22/17. Patient was cleared by medical team to proceed with surgery. 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
[2017-07-22] MEDS ORDERED: FENTANYL CITRATE INJ 50 MCG/1 ML 2 ML VIAL ONE ×3 (11:11→13:28)
--- NOTE | 2017-07-22 11:22 | History & Physical Bridge Note ---
H&P Re-Evaluation Bridge Note: I have examined the patient, reviewed the History & Physical and in the interval since the performance of the History & Physical I have noted the following changes of clinical significance: No changes noted
--- NOTE | 2017-07-22 11:41 | Anesthesiology Progress Note ---
Anesthesia Post Op Note Date & Time Jul 22, 2017 at 11:41 Vital Signs Pain Intensity: 8.0 Vital Signs Past 12 Hours Date Time Temp Pulse Resp B/P (MAP) Pulse Ox O2 Delivery O2 Flow Rate FiO2 07/22/17 07:43 36.7 68 17 107/62 (77) 99 Nasal Cannula 2.0 07/22/17 07:40 Nasal Cannula 2.0 Notes Mental Status: alert / awake / arousable, participated in evaluation Pt Amnestic to Procedure: Yes Nausea / Vomiting: adequately controlled Pain: adequately controlled Airway Patency, RR, SpO2: stable & adequate BP & HR: stable & adequate Hydration State: stable & adequate Neuraxial Anesthesia: sensory block is resolving Anesthetic Complications: no major complications apparent
[2017-07-22] MEDS ORDERED: BUPIVACAINE 0.5 % 5 MG/1 ML MPF 30ML VIAL ONE (11:54)
[2017-07-22] MEDS ORDERED: MAGNESIUM HYDROXIDE SUSP 30 ML UDC PO PRN (12:30)
[2017-07-22] MEDS ORDERED: NO NSAIDS SCH (12:30)
[2017-07-22] MEDS ORDERED: ALUMINUM/MAGNESIUM/SIMETH (MAALOX MAX) 30 ML UDC PO PRN (12:30)
[2017-07-22] MEDS ORDERED: BISACODYL 10 MG SUPP PR PRN (12:30)
[2017-07-22] MEDS ORDERED: ONDANSETRON INJ 2 MG/ML 2 ML VIAL IV PRN ×2 (12:30→13:30)
[2017-07-22] MEDS: FERROUS GLUCONATE 324 MG TAB PO SCH ×2 (12:30→17:57)
[2017-07-22] MEDS ORDERED: SOD PHOSPHATE/SOD BIPHOSPHATE ENEMA 132 ML BTL PR PRN (12:30)
[2017-07-22] MEDS ORDERED: ZOLPIDEM TARTRATE 5 MG TAB PO PRN (12:30)
[2017-07-22] MEDS ORDERED: PROPOFOL IV EMULSION 10 MG/ML 20 ML VIAL IV ONE (12:48)
[2017-07-22] MEDS ORDERED: SUCCINYLCHOLINE CHLORIDE 20 MG/ML 10 ML VIAL IV ONE (12:48)
[2017-07-22] MEDS ORDERED: PHENYLEPHRINE 100MCG/ML 5ML SYR ONE (12:48)
[2017-07-22] MEDS ORDERED: DEXAMETHASONE SOD INJ 4 MG/ML VIAL ONE (12:48)
[2017-07-22] MEDS ORDERED: ONDANSETRON INJ 2 MG/ML 2 ML VIAL ONE ×2 (12:48→13:42)
[2017-07-22] MEDS ORDERED: ROCURONIUM BROMIDE 10 MG/ML 5 ML VIAL IV ONE (12:50)
[2017-07-22] MEDS ORDERED: CEFAZOLIN SOD 1 GM VIAL ONE (12:57)
[2017-07-22] MEDS ORDERED: ATROPINE SULFATE 0.1 MG/ML 5ML SYR IV PRN (13:30)
[2017-07-22] MEDS: FENTANYL CITRATE INJ 50 MCG/1 ML 2 ML VIAL IV PRN ×4 (13:30→13:45)
[2017-07-22] MEDS ORDERED: EpHEDrine SULFATE INJ 50 MG/ML AMP IV PRN (13:30)
--- NOTE | 2017-07-22 13:32 | DIAGNOSTIC IMAGING REPORT ---
Radiology RIGHT HIP OR FILMS CLINICAL HISTORY: 76 years-old Female presenting with HIP FX, ORIF Right. TECHNIQUE: 2 fluoroscopic spot image(s) obtained as part of an intraoperative procedure. COMPARISON: Plain radiographs performed on 07/21/2017. FINDINGS/IMPRESSION: There has been interval intramedullary nail fixation through the right femoral neck and proximal metadiaphysis with an interlocking screw in the proximal diaphysis. Right hip joint congruent. Atherosclerosis noted. Minimal offset at the bases cervical right femoral neck fracture. Please see surgical report for further details. Fluoroscopy dosage (mGy): Not available. Fluoroscopy time: 1 minute 2 seconds. Number of fluoroscopic spot images: 2. Electronically signed by: Joaquin Forde M.D. 07/22/2017 1:30 PM Dictated Date/Time: 07/22/2017 1:29 PM
--- NOTE | 2017-07-22 13:48 | [facility] Post Operative Brief Note ---
Immediate Operative Summary Operative Date Jul 22, 2017. Pre-Operative Diagnosis Right Hip Intertrochcanteric fracture Post-Operative Diagnosis Right Hip Intertrochcanteric fracture Procedure(s) Performed Open Reduction Internal Fixation of Right Hip with Intramedullary Troch Nail Surgeon Dr. Gabe Monteiro Plasterer Foreman Surgeon(s) Dr. Merna Gilbert Estimated Blood Loss 25mL Findings see dictated op note Specimens none per surgeon Drains none Anesthesia general Complication(s) None Disposition Recovery Room / PACU
--- NOTE | 2017-07-22 13:51 | Progress Note ---
Progress Note Date of Service Jul 22, 2017. Progress Note Post op progress note Patient seen in the PACU, c/o pain to right hip. VSS PE: RLE NVSI +EHL/FHL/TA/GS SILT grossly, CR< 2 seconds, +2 DP pulse, dressing CDI, compartments soft, scds in place s/p Right hip intertrochanteric nail -WBAT RLE -Pain management -PT/OT -DVT PPX - ASA BID -IV fluids -AM labs -Post op XR 2 views -Ancef x 24 hours
[2017-07-22] MEDS ORDERED: HYDROmorphone INJ 2 MG/ML SYR/VIAL ONE (13:53)
[2017-07-22] MEDS: HYDROmorphone INJ 1 MG/ML SYR IV PRN ×4 (13:55→14:20)
[2017-07-22] MEDS: ACETAMINOPHEN 500 MG TAB PO SCH ×2 (14:00→21:39)
--- NOTE | 2017-07-22 14:37 | DIAGNOSTIC IMAGING REPORT ---
RIGHT HIP UNILATERAL 2 VIEWS CLINICAL HISTORY: 76 years-old Female presenting with post op Right. TECHNIQUE: Frontal and crosstable lateral views of the right femur were obtained. COMPARISON: Plain radiographs performed on 07/21/2017. FINDINGS: There has been interval intramedullary nail dictation across the basicervical right femoral neck fracture. Intramedullary nail fixation through the proximal metadiaphysis of the right femur with interlocking diaphyseal screw. Grossly normal anatomic alignment. Right hip joint congruent. Atherosclerosis noted. Expected soft tissue emphysema and overlying skin marvin. IMPRESSION: Expected postsurgical appearance status post internal fixation of the basicervical right femoral neck fracture. No malalignment. Electronically signed by: Joaquin Forde M.D. 07/22/2017 2:36 PM Dictated Date/Time: 07/22/2017 2:34 PM
[2017-07-22] MEDS ORDERED: SODIUM CHLORIDE 0.9% 1000ML 1,000 ML IV SCH (15:03)
--- NOTE | 2017-07-22 15:57 | Anesthesiology Progress Note ---
Anesthesia Post Op Note Date & Time Jul 22, 2017 at 15:57 Vital Signs Pain Intensity: 4.0 Vital Signs Past 12 Hours Date Time Temp Pulse Resp B/P (MAP) Pulse Ox O2 Delivery O2 Flow Rate FiO2 07/22/17 15:16 36.6 77 16 143/56 (85) 100 Nasal Cannula 4.0 07/22/17 14:45 96 Nasal Cannula 4.0 07/22/17 14:45 36.7 78 20 134/67 (89) 98 Nasal Cannula 4.0 07/22/17 14:40 76 18 139/56 95 Nasal Cannula 4 07/22/17 14:25 36.6 81 18 155/64 95 Nasal Cannula 4 07/22/17 14:15 69 18 161/58 96 Nasal Cannula 4 07/22/17 14:05 74 18 170/67 93 Nasal Cannula 4 07/22/17 13:55 72 18 163/67 97 Nasal Cannula 2 07/22/17 13:45 63 20 180/68 94 Oxymask 8 07/22/17 13:35 63 20 158/48 96 Oxymask 8 07/22/17 13:25 61 20 153/62 98 Oxymask 8 07/22/17 13:17 36.2 61 16 158/51 96 Oxymask 8 07/22/17 07:43 36.7 68 17 107/62 (77) 99 Nasal Cannula 2.0 07/22/17 07:40 Nasal Cannula 2.0 Notes Mental Status: alert / awake / arousable, participated in evaluation Pt Amnestic to Procedure: Yes Nausea / Vomiting: adequately controlled Pain: adequately controlled Airway Patency, RR, SpO2: stable & adequate BP & HR: stable & adequate Hydration State: stable & adequate Anesthetic Complications: no major complications apparent
[2017-07-22] MEDS: OXYCODONE HCL IR 5 MG TAB (IMMEDIATE RELEASE) PO PRN ×2 (16:06→23:38)
[2017-07-22] MEDS: MoRPHine SULFATE 2 MG/ML CARP IV PRN ×2 (17:35→19:16)
--- NOTE | 2017-07-22 17:48 | Progress Note ---
Subjective Date of Service: Jul 22, 2017. Subjective Pt evaluation today including: conversation w/ patient, physical exam, lab review, review of studies, review of inpatient medication list Saw/examined the patient in room 301 Doing well post-operatively Pain is controlled with medications No other issues to note Problem List Medical Problems: (1) Anemia Status: Acute (2) Anemia Status: Acute (3) Hip fracture, right Status: Acute (4) Pelvic rim fracture Status: Acute (5) Traumatic diastasis of symphysis pubis Status: Acute Review of Systems Constitutional: No fever, No chills Respiratory: No shortness of breath Cardiac: No chest pain Musculoskeletal: + joint pain (R hip) Medications Current Inpatient Medications Medications (Trade) Dose Ordered Sig/Maris Route Start Time Stop Time Status Last Admin Dose Admin Acetaminophen (Tylenol Tab) 650 mg Q4H PRN PO 07/21/17 21:45 08/20/17 21:44 Future Hold Naloxone HCl (Narcan Inj) 0.1 mg PRN PRN IV 07/21/17 21:45 08/20/17 21:44 Senna/Docusate Sodium (Senokot S Tab) 2 tab HS PO 07/22/17 21:00 08/21/17 20:59 Polyethylene (Miralax Powder Packet) 17 gm DAILY PRN PO 07/21/17 21:45 08/20/17 21:44 Baclofen (Lioresal Tab) 2.5 mg TID PRN PO 07/21/17 21:45 08/20/17 21:44 07/21/17 23:45 2.5 MG Amitriptyline HCl (Elavil Tab) 35 mg HS PO 07/22/17 21:00 08/21/17 20:59 Atorvastatin Calcium (Lipitor Tab) 20 mg DAILY PO 07/22/17 09:00 08/21/17 08:59 07/22/17 08:06 20 MG Baclofen (Lioresal Tab) 5 mg BID PO 07/22/17 09:00 08/21/17 08:59 07/22/17 08:06 5 MG Fluticasone Propionate (Flonase Nasal [place]) 1 sprays DAILY FRANCK 07/22/17 09:00 08/21/17 08:59 07/22/17 08:05 1 SPRAYS Levetiracetam (Keppra Tab) 500 mg BID PO 07/22/17 09:00 08/21/17 08:59 07/22/17 08:06 500 MG Loratadine (Claritin Tab) 10 mg DAILY PRN PO 07/21/17 21:45 08/20/17 21:44 Phenytoin Sodium (Dilantin Er Cap) 100 mg QPM PO 07/22/17 21:00 08/21/17 20:59 Phenytoin Sodium (Dilantin Er Cap) 200 mg QAM PO 07/22/17 09:00 08/21/17 08:59 07/22/17 08:05 200 MG Prednisone (PredniSONE TAB) 5 mg HS PO 07/22/17 21:00 08/21/17 20:59 Ranitidine HCl (zANTac TAB) 150 mg BID PO 07/22/17 09:00 08/21/17 08:59 07/22/17 08:06 150 MG Ropinirole HCl (Requip Tab) 0.25 mg HS PO 07/22/17 21:00 08/21/17 20:59 Tiotropium [place] (Spiriva Handihaler Inhaler) 1 puff QAM INH 07/22/17 09:00 08/21/17 08:59 07/22/17 08:05 1 PUFF Calcium/Vitamin D (Caltrate Plus Tab) 1 tab DAILY PO 07/22/17 09:00 08/21/17 08:59 Albuterol/ Ipratropium (Duoneb) 3 ml Q2H PRN INH 07/21/17 21:45 08/20/17 21:44 Nicotine (Nicoderm Cq 21MG Patch) 1 patch QAM TD 07/22/17 09:00 08/21/17 08:59 Miscellaneous (Remove Nicoderm Patch) 1 ea HS N/A 07/22/17 21:00 08/21/17 20:59 Cefazolin Sodium 60 ml @ 120 mls/hr PREOP IV 07/22/17 06:00 07/23/17 05:59 Miscellaneous Medication (No Nsaids) 1 ea UD N/A 07/22/17 12:30 08/21/17 12:29 Oxycodone HCl (Roxicodone Immediate Rel Tab) 1-2 TABS FOR PAIN 1 TABLET ... Q4H PRN PO 07/22/17 12:30 08/05/17 12:29 07/22/17 16:06 5 MG Morphine Sulfate (MoRPHine SULFATE INJ) 2 mg Q1HWA PRN IV 07/22/17 12:30 08/05/17 12:29 Acetaminophen (Tylenol Tab) 1,000 mg Q8H PO 07/22/17 14:00 08/21/17 12:29 Magnesium Hydroxide (Milk Of Magnesia Susp) 30 ml Q6H PRN PO 07/22/17 12:30 08/21/17 12:29 Bisacodyl (Dulcolax Supp) 10 mg DAILY PRN [place] 07/22/17 12:30 08/21/17 12:29 Sodium Biphosphate/ Sodium Phosphate (Fleet Enema) 132 ml DAILY PRN [place] 07/22/17 12:30 08/21/17 12:29 Senna (Senokot Tab) 17.2 mg HS PO 07/22/17 21:00 08/21/17 20:59 Docusate Sodium (coLACE CAP) 100 mg BID PO 07/22/17 21:00 08/21/17 20:59 Diphenhydramine HCl (Benadryl Cap) 25 mg Q8H PRN PO 07/22/17 12:30 08/21/17 12:29 Al Hydrox/Mg Hydrox/Simethicone (Maalox Max Susp) 15 ml Q4H PRN PO 07/22/17 12:30 08/21/17 12:29 Zolpidem Tartrate (Ambien Tab) 5 mg HSZ PRN PO 07/22/17 12:30 08/21/17 12:29 Multivitamins (Multivitamin Tab) 1 tab QAM PO 07/23/17 09:00 08/22/17 08:59 Ondansetron HCl (Zofran Inj) 4 mg Q6H PRN IV 07/22/17 12:30 08/21/17 12:29 Ferrous Gluconate (Ferrous Gluconate Tab) 324 mg TIDM PO 07/22/17 12:30 08/21/17 12:29 Pantoprazole Sodium (Protonix Tab) 40 mg QAM PO 07/23/17 09:00 08/22/17 08:59 Cefazolin Sodium 2000 mg/Dextrose 60 ml @ 100 mls/hr Q8H IV 07/22/17 20:00 07/23/17 04:35 Aspirin (Ecotrin Tab) 325 mg Q12 PO 07/22/17 21:00 08/21/17 20:59 Fentanyl Citrate (Fentanyl Inj) 25 mcg Q5M PRN IV 07/22/17 13:30 07/22/17 18:30 07/22/17 13:45 25 MCG Hydromorphone HCl (Dilaudid Inj) 0.25 mg Q5M PRN IV 07/22/17 13:30 07/22/17 18:30 07/22/17 14:20 0.25 MG Ondansetron HCl (Zofran Inj) 4 mg ONE PRN IV 07/22/17 13:30 07/22/17 18:30 Ephedrine Sulfate (EpHEDrine SULFATE INJ) 5 mg Q5M PRN IV 07/22/17 13:30 07/22/17 18:30 Atropine Sulfate (Atropine Sulfate 0.1MG/Ml Inj) 0.5 mg Q1M PRN IV 07/22/17 13:30 07/22/17 18:30 Sodium Chloride 1,000 ml @ 85 mls/hr [id number] IV 07/22/17 15:03 08/21/17 15:02 07/22/17 15:57 85 MLS/HR Enteral Nutritional Formula (Boost Plus Vanilla) 1 can BID PO 07/22/17 21:00 08/21/17 20:59 Objective Vital Signs Date Time Temp Pulse Resp B/P (MAP) Pulse Ox O2 Delivery O2 Flow Rate FiO2 07/22/17 16:44 36.8 79 16 138/66 (90) 97 Nasal Cannula 07/22/17 16:11 36.7 76 16 150/67 (94) 96 Nasal Cannula 4.0 07/22/17 15:16 36.6 77 16 143/56 (85) 100 Nasal Cannula 4.0 07/22/17 14:45 96 Nasal Cannula 4.0 07/22/17 14:45 36.7 78 20 134/67 (89) 98 Nasal Cannula 4.0 07/22/17 14:40 76 18 139/56 95 Nasal Cannula 4 07/22/17 14:25 36.6 81 18 155/64 95 Nasal Cannula 4 07/22/17 14:15 69 18 161/58 96 Nasal Cannula 4 07/22/17 14:05 74 18 170/67 93 Nasal Cannula 4 07/22/17 13:55 72 18 163/67 97 Nasal Cannula 2 07/22/17 13:45 63 20 180/68 94 Oxymask 8 07/22/17 13:35 63 20 158/48 96 Oxymask 8 07/22/17 13:25 61 20 153/62 98 Oxymask 8 07/22/17 13:17 36.2 61 16 158/51 96 Oxymask 8 07/22/17 07:43 36.7 68 17 107/62 (77) 99 Nasal Cannula 2.0 07/22/17 07:40 Nasal Cannula 2.0 07/21/17 23:27 Nasal Cannula 2.0 07/21/17 22:30 36.7 65 18 124/49 Nasal Cannula 2.0 07/21/17 21:12 67 20 159/48 94 Room Air 07/21/17 19:36 68 17 152/67 96 Nasal Cannula 2.0 07/21/17 18:36 73 Physical Exam General Appearance: no apparent distress, + cachetic, + thin Eyes: + pertinent finding (R eye) Respiratory/Chest: no respiratory distress, no accessory muscle use Cardiovascular: regular rate, rhythm, no edema, no murmur (R eye cataract) Extremities: normal inspection, no pedal edema Neurologic/Psychiatric: no motor/sensory deficits, alert Laboratory Results Last 24 Hours Test 07/21/17 18:11 07/21/17 19:38 07/21/17 20:22 07/21/17 22:45 White Blood Count 6.23 K/uL 5.45 K/uL Red Blood Count 2.36 M/uL 2.54 M/uL Hemoglobin 8.9 g/dL 9.3 g/dL Hematocrit 24.7 % 26.8 % Mean Corpuscular Volume 104.7 fL 105.5 fL Mean Corpuscular Hemoglobin 37.7 pg 36.6 pg Mean Corpuscular Hemoglobin Concent 36.0 g/dl 34.7 g/dl Platelet Count 118 K/uL 120 K/uL Mean Platelet Volume 8.2 fL 8.8 fL Neutrophils (%) (Auto) 81.3 % 75.8 % Lymphocytes (%) (Auto) 11.7 % 16.7 % Monocytes (%) (Auto) 4.3 % 5.1 % Eosinophils (%) (Auto) 2.1 % 2.0 % Basophils (%) (Auto) 0.3 % 0.2 % Neutrophils # (Auto) 5.06 K/uL 4.13 K/uL Lymphocytes # (Auto) 0.73 K/uL 0.91 K/uL Monocytes # (Auto) 0.27 K/uL 0.28 K/uL Eosinophils # (Auto) 0.13 K/uL 0.11 K/uL Basophils # (Auto) 0.02 K/uL 0.01 K/uL RDW Standard Deviation 56.2 fL 56.9 fL RDW Coefficient of Variation 15.1 % 15.0 % Immature Granulocyte % (Auto) 0.3 % 0.2 % Immature Granulocyte # (Auto) 0.02 K/uL 0.01 K/uL Basophilic Stippling OCCASIONAL Prothrombin Time 11.3 SECONDS Prothromb Time International Ratio 1.1 Activated Partial Thromboplast Time 30.6 SECONDS Partial Thromboplastin Ratio 1.2 Sodium Level 135 mmol/L Potassium Level 3.7 mmol/L Chloride Level 103 mmol/L Carbon Dioxide Level 27 mmol/L Anion Gap 5.0 mmol/L Blood Urea Nitrogen 7 mg/dl Creatinine 0.53 mg/dl Est Creatinine Clear Calc Drug Dose 50.4 ml/min Estimated GFR () 106.1 Estimated GFR (Non- 91.6 BUN/Creatinine Ratio 13.3 Random Glucose 98 mg/dl Calcium Level 7.9 mg/dl Urine Color YELLOW Urine Appearance CLEAR Urine pH 7.0 Urine Specific [place] 1.012 Urine Protein NEG Urine Glucose (UA) NEG Urine Ketones NEG Urine Occult Blood TRACE Urine Nitrite NEG Urine Bilirubin NEG Urine Urobilinogen NEG Urine Leukocyte Esterase NEG Urine WBC (Auto) /hpf Urine RBC (Auto) /hpf Urine Hyaline Casts (Auto) /lpf Urine Epithelial Cells (Auto) /lpf Urine Bacteria (Auto) Urine RBC 5-10 /hpf Urine WBC 0 /hpf Urine Epithelial Cells 0-5 /lpf Urine Bacteria NEG Magnesium Level 2.0 mg/dl Total Bilirubin 0.5 mg/dl Direct Bilirubin 0.2 mg/dl Aspartate Amino Transf (AST/SGOT) 19 U/L Alanine Aminotransferase (ALT/SGPT) 12 U/L Alkaline Phosphatase 107 U/L Total Protein 6.2 gm/dl Albumin 3.1 gm/dl Thyroid Stimulating Hormone (TSH) 2.700 uIu/ml Phenytoin (Dilantin) Level 16.4 mcg/mL Test 07/22/17 05:02 Sodium Level 136 mmol/L Potassium Level 3.8 mmol/L Chloride Level 104 mmol/L Carbon Dioxide Level 26 mmol/L Anion Gap 6.0 mmol/L Blood Urea Nitrogen 7 mg/dl Creatinine 0.41 mg/dl Est Creatinine Clear Calc Drug Dose 65.1 ml/min Estimated GFR () 115.5 Estimated GFR (Non- 99.7 BUN/Creatinine Ratio 17.6 Random Glucose 90 mg/dl Calcium Level 8.2 mg/dl Assessment and Plan This is a 76 year old frail female with PMH of RA, OA on long-term prednisone, seizure disorder, HTN, HLD, restless leg syndrome, COPD/tobacco use disorder - with weakness/recurrent falls - presented with a fall and a R hip fracture R hip Fracture appreciate ortho management s/p ORIF WBAT as per ortho Tramadol PRN added PT/OT will need rehab incentive spirometer Seizure Disorder continue home medications RA back on prednisone 5mg daily DVT ppx Aspirin 325 q12 as per ortho FULL CODE
[2017-07-22] MEDS: CEFAZOLIN IV 2,000 MG in DEXTROSE 5% 50ML 50 ML IV SCH (20:02)
[2017-07-22] MEDS: ROPINIROLE HCL 0.25 MG TAB PO SCH (21:06)
[2017-07-22] MEDS: SENNA 8.6 MG TAB PO SCH (21:07)
[2017-07-22] MEDS: ASPIRIN 325 MG ECTAB PO SCH (21:08)
[2017-07-22] MEDS: DOCUSATE SODIUM 100 MG CAP PO SCH (21:09)
[2017-07-22] MEDS: AMITRIPTYLINE HCL 10 MG TAB PO SCH (21:10)
[2017-07-22] MEDS: DOCUSATE SODIUM/SENNA 50/8.6MG TAB PO SCH (21:10)
[2017-07-22] MEDS: BOOST PLUS VANILLA PO SCH ×2 (21:31)
[2017-07-23] VITALS (12 sets, daily range): BP systolic 119–163; BP diastolic 53–68; PULSE 64–71; TEMP 36.3–37; O2SAT 97–100
[2017-07-23] MEDS: CEFAZOLIN IV 2,000 MG in DEXTROSE 5% 50ML 50 ML IV SCH (04:11)
[2017-07-23] MEDS: ACETAMINOPHEN 500 MG TAB PO SCH ×3 (05:56→21:39)
[2017-07-23 07:12] LABS: HEMATOCRIT 20.1 % (37-47); MEAN CELL VOLUME 105.8 fL (80-100); MEAN CORPUSCULAR HEMOGLOBIN 38.4 pg (25-34); MEAN CORPUSCULAR HGB CONC 36.3 g/dl (32-36); MEAN PLATELET VOLUME 8.4 fL (7.4-10.4); PLATELET COUNT 119 K/uL (130-400); WHITE BLOOD COUNT 4.57 K/uL (4.8-10.8)
[2017-07-23 07:19] LABS: BUN/CREATININE RATIO 12.8 (10-20); CALCIUM 8.2 mg/dl (8.5-10.1); CREATININE 0.57 mg/dl (0.60-1.20); POTASSIUM 3.9 mmol/L (3.5-5.1)
[2017-07-23 07:27] LABS: BASO % 0.2 %; BASO ABS # 0.01 K/uL (0-0.2); COMPLETE YES; EOS % 2.2 %; IG% 0.2 %; LYMPH % 17.9 %; LYMPH ABS # 0.82 K/uL (1.2-3.4); NEUT % 72.5 %; SPHEROCYTE 1+
--- NOTE | 2017-07-23 07:48 | OPERATIVE REPORT ---
DATE OF OPERATION: 07/22/2017 PREOPERATIVE DIAGNOSIS: Two-part intertrochanteric hip fracture, right hip. POSTOPERATIVE DIAGNOSIS: Two-part intertrochanteric hip fracture, right hip. PROCEDURE: Closed locked trochanteric femoral nailing, right hip. SURGEON: Dr. Monteiro. TRAIN GATE ATTENDANT: Della Brown. ANESTHESIA: General. COMPLICATIONS: None. DESCRIPTION OF PROCEDURE: Following induction of adequate general anesthesia, the patient was placed on the fracture table and the right hip was prepped and draped in usual sterile manner. The incision was made from the tip of the greater trochanter proximally. Subcutaneous tissue was sharply dissected with electrocautery used for hemostasis. The drill tipped guidewire was placed through the fracture into the medullary canal and was overdrilled using the intramedullary drill. A 12 mm short Synthes nail was impacted into position. It was locked proximally with a helical blade. Traction was taken off the leg and mild compression was obtained and distal fixation was carried out using a single 36 mm cortical bone screw. Wounds were irrigated and closed using 2-0 Dexon and marvin. Sterile dressing of Adaptic, 4x4s, ABDs and foam tape was applied. The patient tolerated the procedure well. I attest to the content of the Intraoperative Record and any orders documented therein. Any exception s are noted below.
--- NOTE | 2017-07-23 07:53 | Orthopedic Progress Note ---
Orthopedic Progress Note Date of Service Jul 23, 2017. Subjective Post OP Day: 1 Reports: complaints (PATIENT WAS SLEEPING ON ARRIVAL, WAKES EASILY. STATE SHE'S HAVING MODERATE PAIN. SHE HAD TYLENOL THIS AM BUT NOTHING ELSE SINCE LAST NIGHT. ), Denies: chest pain, SOB, nausea / vomiting, light headedness, calf pain Additional Notes: HGB 7.3 THIS AM. PRBCs ORDERED PER MEDICAL SERVICE. Patient see at bedside, states pain is improved since yesterday. No acute issues overnight Objective calves soft nontender, N/V intact, hip located, capillary refill less than 2 sec., dressing C/D/I, A&O x3, toes mobile PE: RLE NVSI +EHL/FHL/TA/GS SILT grossly, CR< 2 seconds, +2 DP pulse, dressing CDI, compartments soft NT, scds in place Date Time Temp Pulse Resp B/P (MAP) Pulse Ox O2 Delivery O2 Flow Rate FiO2 07/23/17 07:32 36.3 64 19 119/68 (85) 100 Room Air 07/23/17 07:10 Nasal Cannula 4.0 07/23/17 03:02 37.0 68 18 138/60 (86) 97 Nasal Cannula 4.0 07/22/17 23:35 Nasal Cannula 4.0 07/22/17 22:47 37.1 81 18 128/48 (74) 94 Nasal Cannula 4.0 07/22/17 17:45 36.3 73 18 115/56 (75) 100 Nasal Cannula 2.0 07/22/17 16:44 36.8 79 16 138/66 (90) 97 Nasal Cannula 07/22/17 16:11 36.7 76 16 150/67 (94) 96 Nasal Cannula 4.0 07/22/17 15:45 Nasal Cannula 2.0 07/22/17 15:16 36.6 77 16 143/56 (85) 100 Nasal Cannula 4.0 07/22/17 14:45 96 Nasal Cannula 4.0 07/22/17 14:45 36.7 78 20 134/67 (89) 98 Nasal Cannula 4.0 07/22/17 14:40 76 18 139/56 95 Nasal Cannula 4 07/22/17 14:25 36.6 81 18 155/64 95 Nasal Cannula 4 07/22/17 14:15 69 18 161/58 96 Nasal Cannula 4 07/22/17 14:05 74 18 170/67 93 Nasal Cannula 4 07/22/17 13:55 72 18 163/67 97 Nasal Cannula 2 07/22/17 13:45 63 20 180/68 94 Oxymask 8 07/22/17 13:35 63 20 158/48 96 Oxymask 8 07/22/17 13:25 61 20 153/62 98 Oxymask 8 07/22/17 13:17 36.2 61 16 158/51 96 Oxymask 8 Laboratory Results 24 Hours: Test 07/23/17 06:27 White Blood Count 4.57 K/uL Red Blood Count 1.90 M/uL Hemoglobin 7.3 g/dL Hematocrit 20.1 % Mean Corpuscular Volume 105.8 fL Mean Corpuscular Hemoglobin 38.4 pg Mean Corpuscular Hemoglobin Concent 36.3 g/dl Platelet Count 119 K/uL Mean Platelet Volume 8.4 fL Neutrophils (%) (Auto) 72.5 % Lymphocytes (%) (Auto) 17.9 % Monocytes (%) (Auto) 7.0 % Eosinophils (%) (Auto) 2.2 % Basophils (%) (Auto) 0.2 % Neutrophils # (Auto) 3.31 K/uL Lymphocytes # (Auto) 0.82 K/uL Monocytes # (Auto) 0.32 K/uL Eosinophils # (Auto) 0.10 K/uL Basophils # (Auto) 0.01 K/uL Assessment & Plan Assessment: POD#1 SP RIGHT TFN ACUTE BLOOD LOSS ANEMIA Plan: ANEMIA- TRANSFUSION ORDERED 18 PER MEDICAL SERVICE. s/p Right hip intertrochanteric nail POD #1 -WBAT RLE -Pain management -PT/OT -DVT PPX - ASA BID -AM labs - Hgb 7.3, medicine to transfuse -Ancef x 24 hours (1) Hip fracture, right Acute Inhouse Planning Pain Management: Ultram, PO Tylenol, Oxy IR DVT Prophylaxis: TEDs, SCDs, ASA (325 BID) Discharge Planning Discharge Planning: nursing home facility ([facility]ERRAL [facility]END[facility]
[2017-07-23] MEDS: FERROUS GLUCONATE 324 MG TAB PO SCH ×3 (08:51→18:05)
[2017-07-23] MEDS: DOCUSATE SODIUM 100 MG CAP PO SCH ×2 (08:51→21:08)
[2017-07-23] MEDS: CALCIUM 600MG + VIT D 400 IU TAB PO SCH (08:51)
[2017-07-23] MEDS: ASPIRIN 325 MG ECTAB PO SCH ×2 (08:51→21:07)
[2017-07-23] MEDS: PHENYTOIN SODIUM ER 100 MG CAP PO SCH ×2 (08:52→21:04)
[2017-07-23] MEDS: BACLOFEN 10 MG TAB PO SCH ×2 (08:52→21:04)
[2017-07-23] MEDS: RANITIDINE HCL 150 MG TAB PO SCH ×2 (08:52→21:08)
[2017-07-23] MEDS: ATORVASTATIN 20 MG TAB PO SCH (08:53)
[2017-07-23] MEDS: PANTOprazole SOD 40 MG TAB PO SCH (08:54)
[2017-07-23] MEDS: LEVETIRACETAM 500 MG TAB PO SCH ×2 (08:54→21:05)
[2017-07-23] MEDS: MULTIVITAMIN TAB PO SCH (08:54)
[2017-07-23] MEDS: NICOTINE 21 MG/24 HR TDSY TD SCH (08:59)
[2017-07-23] MEDS: FLUTICASONE PROPIONATE NA SPR 16 GM BTL NAE SCH ×2 (08:59→09:00)
[2017-07-23] MEDS: TIOTROPIUM BROMIDE 5 PUFF/90 MCG INH INH SCH ×2 (09:00→09:01)
[2017-07-23] MEDS: BOOST PLUS VANILLA PO SCH ×4 (09:00→21:03)
--- NOTE | 2017-07-23 18:08 | Progress Note ---
Subjective Date of Service: Jul 23, 2017. Subjective Pt evaluation today including: conversation w/ patient, physical exam, lab review, review of studies, review of inpatient medication list Saw/examined the patient in room 301 continues to c/o pain received blood transfusion earlier today +lethargic, +weak Problem List Medical Problems: (1) Anemia Status: Acute (2) Anemia Status: Acute (3) Hip fracture, right Status: Acute (4) Pelvic rim fracture Status: Acute (5) Traumatic diastasis of symphysis pubis Status: Acute Review of Systems Constitutional: + weakness, + fatigue, No fever, No chills Respiratory: No shortness of breath Cardiac: No chest pain Abdomen: No pain, No nausea, No vomiting, No diarrhea Musculoskeletal: + joint pain (R hip) Medications Current Inpatient Medications Medications (Trade) Dose Ordered Sig/Maris Route Start Time Stop Time Status Last Admin Dose Admin Acetaminophen (Tylenol Tab) 650 mg Q4H PRN PO 07/21/17 21:45 08/20/17 21:44 Future Hold Naloxone HCl (Narcan Inj) 0.1 mg PRN PRN IV 07/21/17 21:45 08/20/17 21:44 Senna/Docusate Sodium (Senokot S Tab) 2 tab HS PO 07/22/17 21:00 08/21/17 20:59 07/22/17 21:10 2 TAB Polyethylene (Miralax Powder Packet) 17 gm DAILY PRN PO 07/21/17 21:45 08/20/17 21:44 Baclofen (Lioresal Tab) 2.5 mg TID PRN PO 07/21/17 21:45 08/20/17 21:44 07/21/17 23:45 2.5 MG Amitriptyline HCl (Elavil Tab) 35 mg HS PO 07/22/17 21:00 08/21/17 20:59 07/22/17 21:10 35 MG Atorvastatin Calcium (Lipitor Tab) 20 mg DAILY PO 07/22/17 09:00 08/21/17 08:59 07/23/17 08:53 20 MG Baclofen (Lioresal Tab) 5 mg BID PO 07/22/17 09:00 08/21/17 08:59 07/23/17 08:52 5 MG Fluticasone Propionate (Flonase Nasal [place]) 1 sprays DAILY FRANCK 07/22/17 09:00 08/21/17 08:59 07/22/17 08:05 1 SPRAYS Levetiracetam (Keppra Tab) 500 mg BID PO 07/22/17 09:00 08/21/17 08:59 07/23/17 08:54 500 MG Loratadine (Claritin Tab) 10 mg DAILY PRN PO 07/21/17 21:45 08/20/17 21:44 07/23/17 08:53 10 MG Phenytoin Sodium (Dilantin Er Cap) 100 mg QPM PO 07/22/17 21:00 08/21/17 20:59 07/22/17 21:38 100 MG Phenytoin Sodium (Dilantin Er Cap) 200 mg QAM PO 07/22/17 09:00 08/21/17 08:59 07/23/17 08:52 200 MG Prednisone (PredniSONE TAB) 5 mg HS PO 07/22/17 21:00 08/21/17 20:59 07/22/17 21:06 5 MG Ranitidine HCl (zANTac TAB) 150 mg BID PO 07/22/17 09:00 08/21/17 08:59 07/23/17 08:52 150 MG Ropinirole HCl (Requip Tab) 0.25 mg HS PO 07/22/17 21:00 08/21/17 20:59 07/22/17 21:06 0.25 MG Tiotropium [place] (Spiriva Handihaler Inhaler) 1 puff QAM INH 07/22/17 09:00 08/21/17 08:59 07/22/17 08:05 1 PUFF Calcium/Vitamin D (Caltrate Plus Tab) 1 tab DAILY PO 07/22/17 09:00 08/21/17 08:59 07/23/17 08:51 1 TAB Albuterol/ Ipratropium (Duoneb) 3 ml Q2H PRN INH 07/21/17 21:45 08/20/17 21:44 Nicotine (Nicoderm Cq 21MG Patch) 1 patch QAM TD 07/22/17 09:00 08/21/17 08:59 Miscellaneous (Remove Nicoderm Patch) 1 ea HS N/A 07/22/17 21:00 08/21/17 20:59 Miscellaneous Medication (No Nsaids) 1 ea UD N/A 07/22/17 12:30 08/21/17 12:29 Oxycodone HCl (Roxicodone Immediate Rel Tab) 1-2 TABS FOR PAIN 1 TABLET ... Q4H PRN PO 07/22/17 12:30 08/05/17 12:29 07/22/17 23:38 5 MG Morphine Sulfate (MoRPHine SULFATE INJ) 2 mg Q1HWA PRN IV 07/22/17 12:30 08/05/17 12:29 07/22/17 19:16 2 MG Acetaminophen (Tylenol Tab) 1,000 mg Q8H PO 07/22/17 14:00 08/21/17 12:29 07/23/17 05:56 1,000 MG Magnesium Hydroxide (Milk Of Magnesia Susp) 30 ml Q6H PRN PO 07/22/17 12:30 08/21/17 12:29 Bisacodyl (Dulcolax Supp) 10 mg DAILY PRN [place] 07/22/17 12:30 08/21/17 12:29 Sodium Biphosphate/ Sodium Phosphate (Fleet Enema) 132 ml DAILY PRN MS 07/22/17 12:30 08/21/17 12:29 Senna (Senokot Tab) 17.2 mg HS PO 07/22/17 21:00 08/21/17 20:59 07/22/17 21:07 17.2 MG Docusate Sodium (coLACE CAP) 100 mg BID PO 07/22/17 21:00 08/21/17 20:59 07/23/17 08:51 100 MG Diphenhydramine HCl (Benadryl Cap) 25 mg Q8H PRN PO 07/22/17 12:30 08/21/17 12:29 07/22/17 19:16 25 MG Al Hydrox/Mg Hydrox/Simethicone (Maalox Max Susp) 15 ml Q4H PRN PO 07/22/17 12:30 08/21/17 12:29 Zolpidem Tartrate (Ambien Tab) 5 mg HSZ PRN PO 07/22/17 12:30 08/21/17 12:29 Multivitamins (Multivitamin Tab) 1 tab QAM PO 07/23/17 09:00 08/22/17 08:59 07/23/17 08:54 1 TAB Ondansetron HCl (Zofran Inj) 4 mg Q6H PRN IV 07/22/17 12:30 08/21/17 12:29 Ferrous Gluconate (Ferrous Gluconate Tab) 324 mg TIDM PO 07/22/17 12:30 08/21/17 12:29 07/23/17 12:36 324 MG Pantoprazole Sodium (Protonix Tab) 40 mg QAM PO 07/23/17 09:00 08/22/17 08:59 07/23/17 08:54 40 MG Aspirin (Ecotrin Tab) 325 mg Q12 PO 07/22/17 21:00 08/21/17 20:59 07/23/17 08:51 325 MG Sodium Chloride 1,000 ml @ 85 mls/hr [id number] IV 07/22/17 15:03 08/21/17 15:02 Future Hold 07/22/17 15:57 85 MLS/HR Enteral Nutritional Formula (Boost Plus Vanilla) 1 can BID PO 07/22/17 21:00 08/21/17 20:59 07/22/17 21:31 1 CAN Tramadol HCl (Ultram Tab) 25 mg Q4H PRN PO 07/22/17 17:45 08/21/17 17:44 Objective Vital Signs Date Time Temp Pulse Resp B/P (MAP) Pulse Ox O2 Delivery O2 Flow Rate FiO2 07/23/17 15:59 Nasal Cannula 2.0 07/23/17 14:59 36.8 68 16 144/62 (89) 100 Nasal Cannula 4.0 07/23/17 11:25 37.0 66 18 136/65 100 4.0 07/23/17 10:33 37.0 66 18 132/66 100 4.0 07/23/17 10:06 37.0 66 18 121/63 100 4.0 07/23/17 09:31 36.8 65 18 158/63 99 4.0 07/23/17 09:15 36.5 66 20 138/62 98 4.0 07/23/17 09:05 36.7 70 20 126/58 100 07/23/17 07:32 36.3 64 19 119/68 (85) 100 Room Air 07/23/17 07:10 Nasal Cannula 4.0 07/23/17 03:02 37.0 68 18 138/60 (86) 97 Nasal Cannula 4.0 07/22/17 23:35 Nasal Cannula 4.0 07/22/17 22:47 37.1 81 18 128/48 (74) 94 Nasal Cannula 4.0 Physical Exam General Appearance: + moderate distress (secondary to pain), + cachetic, + thin Respiratory/Chest: no respiratory distress, no accessory muscle use Cardiovascular: regular rate, rhythm Neurologic/Psychiatric: alert Laboratory Results Last 24 Hours Test 07/23/17 06:27 White Blood Count 4.57 K/uL Red Blood Count 1.90 M/uL Hemoglobin 7.3 g/dL Hematocrit 20.1 % Mean Corpuscular Volume 105.8 fL Mean Corpuscular Hemoglobin 38.4 pg Mean Corpuscular Hemoglobin Concent 36.3 g/dl Platelet Count 119 K/uL Mean Platelet Volume 8.4 fL Neutrophils (%) (Auto) 72.5 % Lymphocytes (%) (Auto) 17.9 % Monocytes (%) (Auto) 7.0 % Eosinophils (%) (Auto) 2.2 % Basophils (%) (Auto) 0.2 % Neutrophils # (Auto) 3.31 K/uL Lymphocytes # (Auto) 0.82 K/uL Monocytes # (Auto) 0.32 K/uL Eosinophils # (Auto) 0.10 K/uL Basophils # (Auto) 0.01 K/uL RDW Standard Deviation 55.6 fL RDW Coefficient of Variation 14.9 % Immature Granulocyte % (Auto) 0.2 % Immature Granulocyte # (Auto) 0.01 K/uL Macrocytosis PRESENT Spherocytes 1+ Sodium Level 135 mmol/L Potassium Level 3.9 mmol/L Chloride Level 101 mmol/L Carbon Dioxide Level 28 mmol/L Anion Gap 6.0 mmol/L Blood Urea Nitrogen 7 mg/dl Creatinine 0.57 mg/dl Est Creatinine Clear Calc Drug Dose 46.8 ml/min Estimated GFR () 103.6 Estimated GFR (Non- 89.4 BUN/Creatinine Ratio 12.8 Random Glucose 104 mg/dl Calcium Level 8.2 mg/dl Assessment and Plan This is a 76 year old frail female with PMH of RA, OA on long-term prednisone, seizure disorder, HTN, HLD, restless leg syndrome, COPD/tobacco use disorder - with weakness/recurrent falls - presented with a fall and a R hip fracture R hip Fracture 07/23 WBAT PT/OT s/p ORIF 07/22 appreciate ortho management s/p ORIF WBAT as per ortho Tramadol PRN added PT/OT will need rehab incentive spirometer Expected Acute Blood Loss Anemia Hgb drop today to 7.3 transfused one unit of PRBC recheck H/H Seizure Disorder continue home medications RA back on prednisone 5mg daily DVT ppx Aspirin 325 q12 as per ortho FULL CODE
[2017-07-23 18:22] LABS: HEMATOCRIT 26.6 % (37-47)
[2017-07-23] MEDS: TRAMADOL HCL 50 MG TAB PO PRN (19:25)
[2017-07-23] MEDS: ROPINIROLE HCL 0.25 MG TAB PO SCH (21:03)
[2017-07-23] MEDS: SENNA 8.6 MG TAB PO SCH (21:05)
[2017-07-23] MEDS: DOCUSATE SODIUM/SENNA 50/8.6MG TAB PO SCH (21:06)
[2017-07-23] MEDS: AMITRIPTYLINE HCL 10 MG TAB PO SCH (21:07)
[2017-07-24] MEDS: ACETAMINOPHEN 500 MG TAB PO SCH ×3 (05:19→21:02)
[2017-07-24 06:02] LABS: BASO % 0.2 %; BASO ABS # 0.01 K/uL (0-0.2); COMPLETE YES; HEMATOCRIT 29.5 % (37-47); IG% 0.2 %; LYMPH ABS # 0.75 K/uL (1.2-3.4); MEAN CELL VOLUME 100.7 fL (80-100); MEAN CORPUSCULAR HEMOGLOBIN 33.8 pg (25-34); MEAN CORPUSCULAR HGB CONC 33.6 g/dl (32-36); MEAN PLATELET VOLUME 8.7 fL (7.4-10.4); MONO % 7.7 %; NEUT % 72.9 %; PLATELET COUNT 132 K/uL (130-400); RED BLOOD COUNT 2.93 M/uL (4.2-5.4)
[2017-07-24 06:30] LABS: BUN/CREATININE RATIO 14.6 (10-20); CREATININE 0.4 mg/dl (0.60-1.20)
[2017-07-24 07:35] VITALS: BP 127/65; PULSE 62; TEMP 36.7; O2SAT 100
--- NOTE | 2017-07-24 08:01 | Orthopedic Progress Note ---
Orthopedic Progress Note Date of Service Jul 24, 2017. Subjective Post OP Day: 2 Reports: feeling well, Denies: chest pain, SOB, nausea / vomiting, light headedness, calf pain Additional Notes: HGB IMPROVED TO 9.9 TODAY SP TRANSFUSION. PATIENT SEEMS SLIGHTLY MORE ALERT THIS AM. SHE AWAKENS EASILY AND RESPONDS APPROPRIATELY. STATES SHE'S STILL HAVING PAIN. WAS ABLE TO SIT UP AT THE BEDSIDE YESTERDAY BUT DID NOT AMBULATE. Objective calves soft nontender, N/V intact, hip located, capillary refill less than 2 sec., dressing C/D/I, A&O x3, toes mobile LLE: NVSI +EHL/FHL/TA/GS SILT grossly, +2 DP pulse, compartments soft NT Incisions C/D/I Date Time Temp Pulse Resp B/P (MAP) Pulse Ox O2 Delivery O2 Flow Rate FiO2 07/24/17 07:35 36.7 62 18 127/65 (85) 100 Nasal Cannula 2.0 Humidified Oxygen 07/24/17 07:05 Nasal Cannula 2.0 Humidified Oxygen 07/23/17 23:12 37.0 71 16 149/60 (89) 98 Nasal Cannula 2.0 Humidified Oxygen 07/23/17 23:10 Nasal Cannula 2.0 07/23/17 19:19 68 16 163/53 (89) 98 Nasal Cannula 2.0 07/23/17 17:00 160/66 (97) 07/23/17 15:59 Nasal Cannula 2.0 07/23/17 14:59 36.8 68 16 144/62 (89) 100 Nasal Cannula 4.0 07/23/17 11:25 37.0 66 18 136/65 100 4.0 07/23/17 10:33 37.0 66 18 132/66 100 4.0 07/23/17 10:06 37.0 66 18 121/63 100 4.0 07/23/17 09:31 36.8 65 18 158/63 99 4.0 07/23/17 09:15 36.5 66 20 138/62 98 4.0 07/23/17 09:05 36.7 70 20 126/58 100 Laboratory Results 24 Hours: Test 07/23/17 17:55 07/24/17 05:21 Hematocrit 26.6 % 29.5 % Hemoglobin 9.0 g/dL 9.9 g/dL White Blood Count 4.70 K/uL Red Blood Count 2.93 M/uL Mean Corpuscular Volume 100.7 fL Mean Corpuscular Hemoglobin 33.8 pg Mean Corpuscular Hemoglobin Concent 33.6 g/dl Platelet Count 132 K/uL Mean Platelet Volume 8.7 fL Neutrophils (%) (Auto) 72.9 % Lymphocytes (%) (Auto) 16.0 % Monocytes (%) (Auto) 7.7 % Eosinophils (%) (Auto) 3.0 % Basophils (%) (Auto) 0.2 % Neutrophils # (Auto) 3.43 K/uL Lymphocytes # (Auto) 0.75 K/uL Monocytes # (Auto) 0.36 K/uL Eosinophils # (Auto) 0.14 K/uL Basophils # (Auto) 0.01 K/uL Assessment & Plan Assessment: POD#2 SP RIGHT TFN ACUTE BLOOD LOSS ANEMIA- IMPROVED Plan: ANEMIA- TRANSFUSION ORDERED 07/23 PER MEDICAL SERVICE. s/p Right hip intertrochanteric nail POD #2 -WBAT RLE -Pain controlled on current regimen -PT/OT -DVT PPX - ASA BID -AM labs - Hgb 9.9 -Dressing changed today 07/24/17 (1) Hip fracture, right Inhouse Planning Pain Management: Ultram, PO Tylenol, Oxy IR DVT Prophylaxis: TEDs, SCDs, ASA (325 BID) Discharge Planning Discharge Planning: half-way facility (REFERRAL PENDING AT [facility]
--- NOTE | 2017-07-24 08:10 | Discharge Instructions ---
Discharge Instructions Date of Service Jul 24, 2017. Admission Reason for Admission: Hip Fracture Discharge Discharge Diagnosis / Problem: SP RIGHT TFN Discharge Goals Goal(s): Decrease discomfort, Improve function, Increase independence Activity Recommendations Activity Level: Assistance Required Therapies: Physical Therapy, Weight Bearing Status (WBAT WITH WALKER), Occupational Therapy Weightbearing Status: Right weightbearing (as tolerated) . Additional Information Patient informed of condition: Yes Advance Directives: Yes DNR: No Level of Care: Skilled Communicable Disease: No Prognosis: Stable Instructions / Follow-Up Instructions / Follow-Up [facility] DISCHARGE INSTRUCTIONS: HIP FRACTURE SELF CARE INSTRUCTIONS: A. You are to ambulate with a walker or crutches for approximately 6 weeks. B. You are WEIGHT BEARING TOLERATE on your operative lower extremity for at least 6 weeks. C. Wear low heeled shoes with non-slip soles D. Be sure that your floors are free of things that could trip you throw rugs, electrical cords, and small objects. Avoid wet and waxed floors, especially with crutches/walker/cane. E. Try to walk several times a day with rest periods between. F. You may shower 48 hours after surgery and get the incision area wet, but DO NOT soak or submerge incision area in water. (No baths, swimming pools, hot tubs ) G. You may have a large, band-aid like dressing over your incision (Aquacel). This will remain on your incision for 7 days, and then can be removed. You CAN shower with this on. If incision is leaking through the dressing, please call the office . H. Do NOT apply soap or any ointment/lotions directly over incision. I. You may use ice as needed to operative site. SPECIAL CARE INSTRUCTIONS: VERY IMPORTANT TO READ AND REVIEW A. You may be at risk for phlebitis or blood clots. a. Wear surgical stockings (ALINA hose) for 2 weeks after surgery to improve circulation and reduce swelling. b. Take ASPIRIN 325 mg twice daily for 4 weeks or as directed. This is your blood thinner. c. If you are on Coumadin- you will have daily/weekly blood work to monitor your levels. This will be done by either your family physician/ robotic weld technician (if you are on Coumadin chronically) versus your orthopedic surgeon. Expect a phone call the day of or the day after your blood work is drawn to adjust your dose accordingly. B. There are a few signs you need to watch for after you are home. Call [facility] at [phone] if you experience any of the following: a. If you have a temperature of 101 degrees or higher. b. Sudden increase in pain in your hip not relieved by rest or pain medication. c. Any fluid or drainage from the incision; redness of the incision. d. Shortness of breath or chest pain. B. Please call [facility] at [phone] if you have any questions or concerns about your operation or recovery. C. Call your physician if: a. Temperature is greater than 101 degrees (F). b. Pain is not relieved by prescribed pain medications. c. Increase drainage or redness from incision. d. Unanswered questions or concerns. D. Pain Medication: a. You will be prescribed pain medication upon discharge that should last till your first post-operative appointment. b. If you experience nausea and/or skin rash, discontinue this medication and contact our office for an alternative medication. c. Caution- narcotic pain medication can cause constipation. FOLLOW UP VISIT: Please call [facility] at [phone] to schedule a follow up appointment 10-14 days from the date of your surgery date. Current Hospital Diet Patient's current hospital diet: Regular Diet Discharge Diet Recommended Diet: Regular Diet Procedures Procedures Performed: Open Reduction Internal Fixation of Right Hip with Intramedullary Troch Nail Pending Studies Studies pending at discharge: no Medical Emergencies . Who to Call and When: Medical Emergencies: If at any time you feel your situation is an emergency, please call 911 immediately. . Non-Emergent Contact Non-Emergency issues call your: Surgeon . . "Provider Documentation" section prepared by Florecita Dennis. . Core Measure Problem Core Measures: None [place] Drug Monitoring Program Search Results: patient reviewed within database, no issues identified
[2017-07-24] MEDS: CALCIUM 600MG + VIT D 400 IU TAB PO SCH (08:39)
[2017-07-24] MEDS: RANITIDINE HCL 150 MG TAB PO SCH ×2 (08:39→21:04)
[2017-07-24] MEDS: MULTIVITAMIN TAB PO SCH (08:39)
[2017-07-24] MEDS: BACLOFEN 10 MG TAB PO SCH ×2 (08:40→21:01)
[2017-07-24] MEDS: ASPIRIN 325 MG ECTAB PO SCH ×2 (08:40→21:04)
[2017-07-24] MEDS: DOCUSATE SODIUM 100 MG CAP PO SCH ×2 (08:40→21:04)
[2017-07-24] MEDS: PHENYTOIN SODIUM ER 100 MG CAP PO SCH ×2 (08:40→21:00)
[2017-07-24] MEDS: PANTOprazole SOD 40 MG TAB PO SCH (08:41)
[2017-07-24] MEDS: LEVETIRACETAM 500 MG TAB PO SCH ×2 (08:41→21:00)
[2017-07-24] MEDS: FERROUS GLUCONATE 324 MG TAB PO SCH ×3 (08:41→17:59)
[2017-07-24] MEDS: ATORVASTATIN 20 MG TAB PO SCH (08:41)
[2017-07-24] MEDS: TIOTROPIUM BROMIDE 5 PUFF/90 MCG INH INH SCH (08:43)
[2017-07-24] MEDS: FLUTICASONE PROPIONATE NA SPR 16 GM BTL NAE SCH (08:43)
[2017-07-24] MEDS: NICOTINE 21 MG/24 HR TDSY TD SCH (08:43)
[2017-07-24] MEDS: BOOST PLUS VANILLA PO SCH ×4 (08:47→21:11)
[2017-07-24] MEDS: TRAMADOL HCL 50 MG TAB PO PRN ×2 (08:48→20:24)
[2017-07-24] MEDS: OXYCODONE HCL IR 5 MG TAB (IMMEDIATE RELEASE) PO PRN ×2 (12:01→18:00)
[2017-07-24 16:06] VITALS: BP 129/65; PULSE 62; TEMP 37; O2SAT 100
--- NOTE | 2017-07-24 19:33 | Progress Note ---
Internal Med Progress Note Date of Service: Jul 24, 2017. Provider Documentation: SUBJECTIVE: complains of muscle spasm on lower legs asking for muscle relaxant , very restless says her toes are getting tingly had pain on rt hip earlier, that got better with pain meds OBJECTIVE: Vital Signs-as noted below Exam: General-in distress due to muscle spasm in lower legs Eyes-sclera non icteric ENT-NAD Neck-no JVD Lungs-CTA Heart-regular S1/S2 Abdomen-soft, non tender Extremities-s/p rt hip replacement Neuro-AAO x3 , Lab data as noted below. ASSESSMENT & PLAN: R hip Fracture s/p ORIF appreciate ortho management WBAT PT/OT Tramadol PRN added; cont muscle relaxant for symptoms will need rehab incentive spirometer Expected Acute Blood Loss Anemia s/p transfusion of one unit of PRBC Seizure Disorder continue home medications RA back on prednisone 5mg daily DVT ppx Aspirin 325 q12 as per ortho DISPOSITION will need rehab Vital Signs: Date Time Temp Pulse Resp B/P (MAP) Pulse Ox O2 Delivery O2 Flow Rate FiO2 07/24/17 16:06 37.0 62 18 129/65 (86) 100 Nasal Cannula 2.0 Humidified Oxygen 07/24/17 15:32 Nasal Cannula 2.0 Humidified Oxygen 07/24/17 07:35 36.7 62 18 127/65 (85) 100 Nasal Cannula 2.0 Humidified Oxygen 07/24/17 07:05 Nasal Cannula 2.0 Humidified Oxygen 07/23/17 23:12 37.0 71 16 149/60 (89) 98 Nasal Cannula 2.0 Humidified Oxygen 07/23/17 23:10 Nasal Cannula 2.0 Lab Results: Results Past 24 Hours Test 07/24/17 05:21 Range/Units White Blood Count 4.70 4.8-10.8 K/uL Red Blood Count 2.93 4.2-5.4 M/uL Hemoglobin 9.9 12.0-16.0 g/dL Hematocrit 29.5 37-47 % Mean Corpuscular Volume 100.7 80-100 fL Mean Corpuscular Hemoglobin 33.8 25-34 pg Mean Corpuscular Hemoglobin Concent 33.6 32-36 g/dl Platelet Count 132 130-400 K/uL Mean Platelet Volume 8.7 7.4-10.4 fL Neutrophils (%) (Auto) 72.9 % Lymphocytes (%) (Auto) 16.0 % Monocytes (%) (Auto) 7.7 % Eosinophils (%) (Auto) 3.0 % Basophils (%) (Auto) 0.2 % Neutrophils # (Auto) 3.43 1.4-6.5 K/uL Lymphocytes # (Auto) 0.75 1.2-3.4 K/uL Monocytes # (Auto) 0.36 0.11-0.59 K/uL Eosinophils # (Auto) 0.14 0-0.5 K/uL Basophils # (Auto) 0.01 0-0.2 K/uL RDW Standard Deviation 68.4 36.4-46.3 fL RDW Coefficient of Variation 18.7 11.5-14.5 % Immature Granulocyte % (Auto) 0.2 % Immature Granulocyte # (Auto) 0.01 0.00-0.02 K/uL Sodium Level 137 136-145 mmol/L Potassium Level 4.0 3.5-5.1 mmol/L Chloride Level 104 98-107 mmol/L Carbon Dioxide Level 28 21-32 mmol/L Anion Gap 5.0 3-11 mmol/L Blood Urea Nitrogen 6 7-18 mg/dl Creatinine 0.40 0.60-1.20 mg/dl Est Creatinine Clear Calc Drug Dose 66.8 ml/min Estimated GFR () 116.4 Estimated GFR (Non- 100.5 BUN/Creatinine Ratio 14.6 10-20 Random Glucose 101 70-99 mg/dl Calcium Level 8.0 8.5-10.1 mg/dl
[2017-07-24] MEDS: ROPINIROLE HCL 0.25 MG TAB PO SCH (21:00)
[2017-07-24] MEDS: AMITRIPTYLINE HCL 10 MG TAB PO SCH (21:03)
[2017-07-24] MEDS: SENNA 8.6 MG TAB PO SCH (21:06)
[2017-07-24] MEDS: DOCUSATE SODIUM/SENNA 50/8.6MG TAB PO SCH (21:19)
[2017-07-24 23:20] VITALS: BP 125/58; PULSE 68; TEMP 36.8; O2SAT 99
[2017-07-25] MEDS: ACETAMINOPHEN 500 MG TAB PO SCH ×2 (05:40→12:39)
[2017-07-25 05:49] LABS: BASO % 0.5 %; BASO ABS # 0.02 K/uL (0-0.2); EOS % 4.6 %; IG% 0.5 %; LYMPH % 21.2 %; LYMPH ABS # 0.87 K/uL (1.2-3.4); MEAN CELL VOLUME 99.6 fL (80-100); MEAN CORPUSCULAR HEMOGLOBIN 34.1 pg (25-34); MEAN CORPUSCULAR HGB CONC 34.2 g/dl (32-36); MEAN PLATELET VOLUME 8.6 fL (7.4-10.4); MONO % 10.7 %; NEUT % 62.5 %; PLATELET COUNT 140 K/uL (130-400); RED BLOOD COUNT 2.61 M/uL (4.2-5.4); WHITE BLOOD COUNT 4.11 K/uL (4.8-10.8)
[2017-07-25 06:33] LABS: COMPLETE YES
[2017-07-25 07:30] VITALS: BP 124/65; PULSE 63; TEMP 36.6; O2SAT 100
[2017-07-25] MEDS: FERROUS GLUCONATE 324 MG TAB PO SCH ×2 (08:30→12:38)
[2017-07-25] MEDS: CALCIUM 600MG + VIT D 400 IU TAB PO SCH (08:31)
[2017-07-25] MEDS: BOOST PLUS VANILLA PO SCH ×2 (08:31)
[2017-07-25] MEDS: TIOTROPIUM BROMIDE 5 PUFF/90 MCG INH INH SCH (08:31)
[2017-07-25] MEDS: FLUTICASONE PROPIONATE NA SPR 16 GM BTL NAE SCH (08:31)
[2017-07-25] MEDS: DOCUSATE SODIUM 100 MG CAP PO SCH (08:31)
[2017-07-25] MEDS: LEVETIRACETAM 500 MG TAB PO SCH (08:32)
[2017-07-25] MEDS: ASPIRIN 325 MG ECTAB PO SCH (08:32)
[2017-07-25] MEDS: PHENYTOIN SODIUM ER 100 MG CAP PO SCH (08:32)
[2017-07-25] MEDS: BACLOFEN 10 MG TAB PO SCH (08:32)
[2017-07-25] MEDS: RANITIDINE HCL 150 MG TAB PO SCH (08:33)
[2017-07-25] MEDS: MULTIVITAMIN TAB PO SCH (08:33)
[2017-07-25] MEDS: NICOTINE 21 MG/24 HR TDSY TD SCH ×2 (08:33→08:39)
[2017-07-25] MEDS: ATORVASTATIN 20 MG TAB PO SCH (08:33)
[2017-07-25] MEDS: PANTOprazole SOD 40 MG TAB PO SCH (08:33)
--- NOTE | 2017-07-25 08:36 | Orthopedic Progress Note ---
Orthopedic Progress Note Date of Service Jul 25, 2017. Subjective Post OP Day: 3 Reports: feeling well, Denies: chest pain, SOB, nausea / vomiting, light headedness Additional Notes: NO NEW COMPLAINTS TODAY. SEEMS A BIT MORE COMFORTABLE MOVING AROUND IN BED. AMBULATED 6' YESTERDAY. Objective calves soft nontender, N/V intact, hip located, dressing C/D/I, A&O x3, toes mobile Date Time Temp Pulse Resp B/P (MAP) Pulse Ox O2 Delivery O2 Flow Rate FiO2 07/25/17 07:48 Nasal Cannula 2.0 07/25/17 07:30 36.6 63 14 124/65 (84) 100 Nasal Cannula 2.0 Humidified Oxygen 07/24/17 23:25 Nasal Cannula 2.0 Humidified Oxygen 07/24/17 23:20 36.8 68 18 125/58 (80) 99 Nasal Cannula 2.0 Humidified Oxygen 07/24/17 16:06 37.0 62 18 129/65 (86) 100 Nasal Cannula 2.0 Humidified Oxygen 07/24/17 15:32 Nasal Cannula 2.0 Humidified Oxygen Laboratory Results 24 Hours: Test 07/25/17 05:23 White Blood Count 4.11 K/uL Red Blood Count 2.61 M/uL Hemoglobin 8.9 g/dL Hematocrit 26.0 % Mean Corpuscular Volume 99.6 fL Mean Corpuscular Hemoglobin 34.1 pg Mean Corpuscular Hemoglobin Concent 34.2 g/dl Platelet Count 140 K/uL Mean Platelet Volume 8.6 fL Neutrophils (%) (Auto) 62.5 % Lymphocytes (%) (Auto) 21.2 % Monocytes (%) (Auto) 10.7 % Eosinophils (%) (Auto) 4.6 % Basophils (%) (Auto) 0.5 % Neutrophils # (Auto) 2.57 K/uL Lymphocytes # (Auto) 0.87 K/uL Monocytes # (Auto) 0.44 K/uL Eosinophils # (Auto) 0.19 K/uL Basophils # (Auto) 0.02 K/uL Assessment & Plan Assessment: POD#3 SP RIGHT TFN ACUTE BLOOD LOSS ANEMIA- IMPROVED Plan: ANEMIA- TRANSFUSION ORDERED 07/23 PER MEDICAL SERVICE. s/p Right hip intertrochanteric nail POD #2 -WBAT RLE -Pain controlled on current regimen -PT/OT -DVT PPX - ASA BID -AM labs - Hgb 9.9 -Dressing changed 07/24/17 ORTHOPEDICALLY STABLE. SEE CONSULT RECOMMENDATIONS FOR FOLLOW UP INSTRUCTIONS. WILL SIGN OFF. (1) Hip fracture, right Inhouse Planning Pain Management: Ultram, PO Tylenol, Oxy IR DVT Prophylaxis: TEDs, SCDs, ASA (325 BID) Discharge Planning Discharge Planning: assisted facility (REFERRAL PENDING AT [facility].)
[2017-07-25] MEDS: OXYCODONE HCL IR 5 MG TAB (IMMEDIATE RELEASE) PO PRN (10:34)
[2017-07-25] MEDS ORDERED: MLXESC PO (11:47)
[2017-07-25] MEDS ORDERED: MRLP17X PO (11:47)
[2017-07-25] MEDS ORDERED: DLCS PR (11:47)
[2017-07-25] MEDS ORDERED: ASPEC325 PO (11:47)
[2017-07-25] MEDS ORDERED: RXC5 PO (11:47)
[2017-07-25] MEDS ORDERED: MOMLX PO (11:47)
[2017-07-25] MEDS ORDERED: ULT50X PO (11:47)
[2017-07-25] MEDS ORDERED: PRT40 PO (11:47)
[2017-07-25] MEDS ORDERED: FRRG PO (12:02)
[2017-07-25 12:28] VITALS: BP 124/65; PULSE 63; TEMP 36.6; O2SAT 100
[2017-07-25 14:24] VITALS: O2SAT 95
--- NOTE | 2017-07-25 14:33 | Progress Note ---
Internal Med Progress Note Date of Service: Jul 25, 2017. Provider Documentation: SUBJECTIVE: feels much better . has some pain on right hip area no muscle spasm stable to be transferred to rehab OBJECTIVE: Vital Signs-as noted below Exam: General-no sign of distress Eyes-sclera non icteric ENT-NAD Neck-no JVD Lungs-CTA Heart-regular S1/S2 Abdomen-soft, non tender Extremities-s/p rt hip replacement Neuro-AAO x3 , Lab data as noted below. ASSESSMENT & PLAN: R hip Fracture s/p ORIF appreciate ortho management WBAT PT/OT Tramadol PRN added; cont muscle relaxant for symptoms will need rehab incentive spirometer stable to be transferred to SNF today Expected Acute Blood Loss Anemia s/p transfusion of one unit of PRBC added Fe supplement Seizure Disorder continue home medications RA on prednisone 5mg daily DVT ppx Aspirin 325 q12 as per ortho for 4 weeks DISPOSITION will need rehab stable to be transferred to [facility] today Vital Signs: Date Time Temp Pulse Resp B/P (MAP) Pulse Ox O2 Delivery O2 Flow Rate FiO2 07/25/17 14:24 95 Room Air 07/25/17 12:28 36.6 63 14 100 Nasal Cannula 07/25/17 07:48 Nasal Cannula 2.0 07/25/17 07:30 36.6 63 14 124/65 (84) 100 Nasal Cannula 2.0 Humidified Oxygen 07/24/17 23:25 Nasal Cannula 2.0 Humidified Oxygen 07/24/17 23:20 36.8 68 18 125/58 (80) 99 Nasal Cannula 2.0 Humidified Oxygen 07/24/17 16:06 37.0 62 18 129/65 (86) 100 Nasal Cannula 2.0 Humidified Oxygen 07/24/17 15:32 Nasal Cannula 2.0 Humidified Oxygen Lab Results: Results Past 24 Hours Test 07/25/17 05:23 Range/Units White Blood Count 4.11 4.8-10.8 K/uL Red Blood Count 2.61 4.2-5.4 M/uL Hemoglobin 8.9 12.0-16.0 g/dL Hematocrit 26.0 37-47 % Mean Corpuscular Volume 99.6 80-100 fL Mean Corpuscular Hemoglobin 34.1 25-34 pg Mean Corpuscular Hemoglobin Concent 34.2 32-36 g/dl Platelet Count 140 130-400 K/uL Mean Platelet Volume 8.6 7.4-10.4 fL Neutrophils (%) (Auto) 62.5 % Lymphocytes (%) (Auto) 21.2 % Monocytes (%) (Auto) 10.7 % Eosinophils (%) (Auto) 4.6 % Basophils (%) (Auto) 0.5 % Neutrophils # (Auto) 2.57 1.4-6.5 K/uL Lymphocytes # (Auto) 0.87 1.2-3.4 K/uL Monocytes # (Auto) 0.44 0.11-0.59 K/uL Eosinophils # (Auto) 0.19 0-0.5 K/uL Basophils # (Auto) 0.02 0-0.2 K/uL RDW Standard Deviation 63.9 36.4-46.3 fL RDW Coefficient of Variation 17.6 11.5-14.5 % Immature Granulocyte % (Auto) 0.5 % Immature Granulocyte # (Auto) 0.02 0.00-0.02 K/uL Red Blood Cell Morphology Unremarkable
--- NOTE | 2017-07-25 14:34 | Discharge Summary ---
Discharge Summary Date of Service Jul 25, 2017. Discharge Summary Admission Date: Jul 21, 2017 at 20:49 Discharge Date: Jul 25, 2017 Discharge Disposition: long term facility ([facility] ) Principal Diagnosis: RIGHT HIP FRACTURE S/P RIGHT TOTAL HIP REPLACEMENT Procedures: Procedures Performed: Open Reduction Internal Fixation of Right Hip with Intramedullary Troch Nail Consultations: ORTHOPEDICS -MAZIN Medication Reconciliation New Medications: Aluminum/Magnesium/Simeth (Mag-Al Plus Xs 400-400-40 mg/5Ml) 30 Ml Susp 15 ML PO Q4H PRN for Heartburn for 30 Days Aspirin (Aspirin) 325 Mg Ectab 325 MG PO Q12 for 30 Days Bisacodyl (Bisac-Evac) 10 Mg Supp 10 MG WA DAILY PRN for Constipation for 30 Days, SUPP Ferrous Gluconate (Ferrous Gluconate) 324 Mg Tab 324 MG PO TIDM for 30 Days, TAB Magnesium Hydroxide (Milk of Magnesia) 30 Ml Susp 30 ML PO Q6H PRN for Constipation for 30 Days Oxycodone HCl (Oxycodone HCl) 5 Mg Tab 5-10 MG PO Q4H PRN for Pain, #10 TAB Pantoprazole (Pantoprazole Sodium) 40 Mg Tab 40 MG PO QAM for 30 Days, #30 TAB Polyethylene (Miralax) 17 Gm Pow 17 GM PO DAILY PRN for Constipation for 30 Days Tramadol HCl (Tramadol HCl) 50 Mg Tab 25 MG PO Q4H PRN for Pain, #10 TAB Continued Medications: Albuterol Hfa (Ventolin Hfa) 200 Puffs/80871 Mcg Aers 2 PUFFS INH Q4 PRN for Wheezing Amitriptyline HCl (Amitriptyline HCl) 25 Mg Tab 25 MG PO HS TAKE ONE 25 MG TAB ALONG WITH ONE 10 MG TAB TO = 35MG HS Amitriptyline HCl (Amitriptyline HCl) 10 Mg Tab 10 MG PO HS TAKE ONE 10 MG TAB ALONG WITH ONE 25 MG TAB TO = 35MG HS Ascorbic Acid (Ascorbic Acid) 500 Mg Tab 500 MG PO DAILY Atorvastatin (Lipitor) 20 Mg Tab 20 MG PO DAILY, TAB Baclofen (Baclofen) 10 Mg Tab 5 MG PO BID for 30 Days, #30 TAB Calcium Carbonate-Vitamin D (Calcium 600 + D) 1 Tab Tab 1 TABS PO DAILY Cholecalciferol (Vitamin D3) 5,000 Unit Cap 5000 INTER.UNIT PO DAILY Cyanocobalamin (Vitamin B-12) 1,000 Mcg Tab 1000 MCG PO DAILY, TAB Docusate Sodium (Stool Softener) 100 Mg Cap 100 MG PO BID Fluticasone Propionate (Nasal) (Flonase Allergy Relief) 50 Mcg/Act Spr 1 SPRAY FRANCK DAILY Levetiracetam (Keppra) 500 Mg Tab 500 MG PO BID, TAB Loratadine (Claritin) 10 Mg Tab 10 MG PO DAILY PRN for ALLERGIES Lysine Hcl (L-Lysine) 500 Mg Tab 500 MG PO DAILY Menthol (Topical Analgesic) (Icy Hot Back Patch) 5 % Pad 1 APPLN TOP DAILY PRN for Back Aches Multivitamin (Multivitamin) Tab 1 TAB PO DAILY, TAB Phenytoin Sodium (Dilantin) 100 Mg Cap 100 MG PO QPM Phenytoin Sodium (Dilantin) 100 Mg Cap 200 MG PO QAM Prednisone (Prednisone) 5 Mg Tab 5 MG PO HS, TAB Ranitidine HCl (Ranitidine HCl) 150 Mg Tab 150 MG PO BID Ropinirole Hydrochloride (Requip) 0.25 Mg Tab 0.25 MG PO HS TAKE THIS MEDICATION 1-3 HOURS BEFORE BEDTIME. Sennosides (Sennosides) 8.6 Mg Tab 8.6 MG PO DAILY Simvastatin (Simvastatin) 20 Mg Tab 20 MG PO HS Sulfasalazine (Azulfidine) 500 Mg Tab 500 MG PO BID, TAB Tiotropium M[place]in (Spiriva Handihaler) 30 Puff/540 Mcg Aerp 1 CAP INH QAM Discontinued Medications: Ferrous Sulfate (Ferrous Sulfate) 325 Mg Tab 325 MG PO QAM Meloxicam (Mobic) 7.5 Mg Tab 7.5 MG PO DAILY Oxycodone/Acetaminophen 5MG/325MG (Percocet 5MG/325MG) Tab 1 TABLET PO Q4H PRN for Pain for 7 Days, #20 Referrals At Discharge Follow up Referrals: Orthopedics Referral - Within 2 Weeks with Kishan Monteiro M.D. Admission Information HPI (per Admitting provider): DATE OF ADMISSION: 07/21/2017 PRIMARY CARE PHYSICIAN: Dr. Lewis. CHIEF COMPLAINT: Right hip pain. HISTORY OF PRESENT ILLNESS: History obtained from patient, [id number], and records. Medical history significant for COPD, ongoing tobacco abuse, hypertension, hyperlipidemia, seizure disorder, rheumatoid arthritis on chronic steroid therapy, chronic anemia (baseline hemoglobin of 8-9), restless legs syndrome, aspiration risk as per records. Recent confinement last March 2017 for generalized weakness, fall, syncope versus near syncope, and aspiration pneumonia. Two nights ago, the patient was reaching for something in the cupboard subsequently fell down, landing on her right hip. PX patient noted excruciating right hip pain. She could not get up. No chest pain, no unusual shortness of breath, no syncope. Usual smoker's cough cough symptoms. Son did not want to bring her to the hospital because she was afraid of hospitals. [id number] brought her to the ER the following day. MEDICAL HISTORY: As above. TTE 2016, preserved systolic function EF of 65% SURGERIES: Appendectomy, cataract surgery, exploratory laparotomy, hysterectomy, gynecologic procedures, tonsillectomy. HOME MEDICATIONS: Include vitamin D3, vitamin B12, stool softener, ferrous sulfate, Flonase, Keppra, Claritin, Mobic, menthol, multivitamins, Dilantin, prednisone, Requip, Zantac, sennosides, simvastatin, Lipitor, sulfasalazine, Spiriva, Ventolin, ascorbic acid, amitriptyline, Lipitor, calcium. ALLERGIES: DUST AND POLLEN. FAMILY HISTORY: Diabetes. PERSONAL AND SOCIAL HISTORY: One pack daily. No chronic intake of alcohol. 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 Lives alone. REVIEW OF SYSTEMS: As per HPI, all other ROS negative. Physical Exam (per Admitting): PHYSICAL EXAMINATION: VITAL SIGNS: Blood pressure was noted to be 166/77, later 159/60, pulse rate 68, RR 17, temperature 36.8, sats 94 on room air. GENERAL: Noted to be hyposthenic, uncomfortable, no respiratory distress. SKIN: Pallor. HEENT: Pale palpebral conjunctivae. Dry mucosa. NECK: No JVD. Supple. CHEST: Decreased breath sounds. Occasional wheeze. HEART: Regular rate and rhythm. ABDOMEN: Soft. EXTREMITIES: Tenderness in right hip. NEUROLOGIC: No gross focality. Hospital Course R hip Fracture s/p ORIF appreciate ortho management WBAT PT/OT Tramadol PRN added; cont muscle relaxant for symptoms will need rehab incentive spirometer stable to be transferred to SNF today Expected Acute Blood Loss Anemia s/p transfusion of one unit of PRBC added Fe supplement Seizure Disorder continue home medications RA on prednisone 5mg daily DVT ppx Aspirin 325 q12 as per ortho for 4 weeks DISPOSITION will need rehab stable to be transferred to [facility] today Total time spent on discharge = 40 MINS This includes examination of the patient, discharge planning, medication reconciliation, and communication with other providers. Discharge Instructions Discharge Instructions Date of Service Jul 24, 2017. Admission Reason for Admission: Hip Fracture Discharge Discharge Diagnosis / Problem: SP RIGHT TOTAL HIP REPLACEMENT Discharge Goals Goal(s): Decrease discomfort, Improve function, Increase independence Activity Recommendations Activity Level: Assistance Required Therapies: Physical Therapy, Weight Bearing Status (WBAT WITH WALKER), Occupational Therapy Weightbearing Status: Right weightbearing (as tolerated) . Additional Information Patient informed of condition: Yes Advance Directives: Yes DNR: No Level of Care: Skilled Communicable Disease: No Prognosis: Stable Instructions / Follow-Up Instructions / Follow-Up [facility] DISCHARGE INSTRUCTIONS: HIP FRACTURE SELF CARE INSTRUCTIONS: A. You are to ambulate with a walker or crutches for approximately 6 weeks. B. You are WEIGHT BEARING TOLERATE on your operative lower extremity for at least 6 weeks. C. Wear low heeled shoes with non-slip soles D. Be sure that your floors are free of things that could trip you throw rugs, electrical cords, and small objects. Avoid wet and waxed floors, especially with crutches/walker/cane. E. Try to walk several times a day with rest periods between. F. You may shower 48 hours after surgery and get the incision area wet, but DO NOT soak or submerge incision area in water. (No baths, swimming pools, hot tubs ) G. You may have a large, band-aid like dressing over your incision (Aquacel). This will remain on your incision for 7 days, and then can be removed. You CAN shower with this on. If incision is leaking through the dressing, please call the office . H. Do NOT apply soap or any ointment/lotions directly over incision. I. You may use ice as needed to operative site. SPECIAL CARE INSTRUCTIONS: VERY IMPORTANT TO READ AND REVIEW A. You may be at risk for phlebitis or blood clots. a. Wear surgical stockings (ALINA hose) for 2 weeks after surgery to improve circulation and reduce swelling. b. Take ASPIRIN 325 mg twice daily for 4 weeks or as directed. This is your blood thinner. c. If you are on Coumadin- you will have daily/weekly blood work to monitor your levels. This will be done by either your family physician/ divorce lawyer (if you are on Coumadin chronically) versus your orthopedic surgeon. Expect a phone call the day of or the day after your blood work is drawn to adjust your dose accordingly. B. There are a few signs you need to watch for after you are home. Call [facility] at [phone] if you experience any of the following: a. If you have a temperature of 101 degrees or higher. b. Sudden increase in pain in your hip not relieved by rest or pain medication. c. Any fluid or drainage from the incision; redness of the incision. d. Shortness of breath or chest pain. B. Please call [facility] at [phone] if you have any questions or concerns about your operation or recovery. C. Call your physician if: a. Temperature is greater than 101 degrees (F). b. Pain is not relieved by prescribed pain medications. c. Increase drainage or redness from incision. d. Unanswered questions or concerns. D. Pain Medication: a. You will be prescribed pain medication upon discharge that should last till your first post-operative appointment. b. If you experience nausea and/or skin rash, discontinue this medication and contact our office for an alternative medication. c. Caution- narcotic pain medication can cause constipation. FOLLOW UP VISIT: Please call [facility] at [phone] to schedule a follow up appointment 10-14 days from the date of your surgery date. Current Hospital Diet Patient's current hospital diet: Regular Diet Discharge Diet Recommended Diet: Regular Diet Procedures Procedures Performed: Open Reduction Internal Fixation of Right Hip with Intramedullary Troch Nail Pending Studies Studies pending at discharge: no Medical Emergencies . Who to Call and When: Medical Emergencies: If at any time you feel your situation is an emergency, please call 911 immediately. . Non-Emergent Contact Non-Emergency issues call your: Surgeon . . "Provider Documentation" section prepared by Florecita Dennis. . Core Measure Problem Core Measures: None [place] Drug Monitoring Program Search Results: patient reviewed within database, no issues identified Additional Copies To Florencio Parisi M.D.
== END 2017-07-25 14:55 | DRG 481 ==
LOC: EDBD 17:00 → C.EDC 17:01 → C.3E 20:49 → ENRESERV 21:02
PROVIDERS: ADMIT Family Medicine; ATTEND Hospitalist
PROC: 0T9B70Z Drainage of Bladder with Drainage Device, Via Natural or Artificial Opening (ICD-10-PCS; 2017-07-21)
PROC: 0QS606Z Reposition Right Upper Femur with Intramedullary Internal Fixation Device, Open Approach (ICD-10-PCS; principal; 2017-07-22 10:00)
DX: S72.141A Displaced intertrochanteric fracture of right femur, initial encounter for closed fracture (principal); D62 Acute posthemorrhagic anemia; E46 Unspecified protein-calorie malnutrition; Z68.1 Body mass index [BMI] 19.9 or less, adult; W19.XXXA Unspecified fall, initial encounter; M62.838 Other muscle spasm; M06.9 Rheumatoid arthritis, unspecified; J44.9 Chronic obstructive pulmonary disease, unspecified; F17.200 Nicotine dependence, unspecified, uncomplicated; G40.909 Epilepsy, unspecified, not intractable, without status epilepticus; D69.6 Thrombocytopenia, unspecified; E78.5 Hyperlipidemia, unspecified; G25.81 Restless legs syndrome; I10 Essential (primary) hypertension; Y92.000 Kitchen of unspecified non-institutional (private) residence as the place of occurrence of the external cause; Y99.8 Other external cause status; Z79.1 Long term (current) use of non-steroidal anti-inflammatories (NSAID); Z79.51 Long term (current) use of inhaled steroids; Z79.52 Long term (current) use of systemic steroids; Z79.899 Other long term (current) drug therapy; Z90.49 Acquired absence of other specified parts of digestive tract; Z90.710 Acquired absence of both cervix and uterus; Z83.3 Family history of diabetes mellitus

== ENCOUNTER 2018-11-06 12:08 | Inpatient (IN) ==
[2018-11-06] MEDS ORDERED: MoRPHine SULFATE 2 MG/ML CARP IV STA (13:03)
[2018-11-06] MEDS ORDERED: ONDANSETRON INJ 2 MG/ML 2 ML VIAL IV STA (13:03)
[2018-11-06 13:58] LABS: Basophils # (auto) 0.01 K/uL (0-0.2); Basophils % (auto) 0.1 %; Eosinophils # (auto) 0.05 K/uL (0-0.5); Eosinophils % (auto) 0.7 %; Hematocrit (blood only) 30.3 % (37-47); Hemoglobin 10.5 g/dL (12.0-16.0); Immature Granulocytes # (auto) 0.02 K/uL (0.00-0.02); Immature Granulocytes % (auto) 0.3 %; Lymphocytes # (auto) 1.16 K/uL (1.2-3.4); Lymphocytes % (auto) 16.1 %; Mean Corpuscular Hgb Conc 34.7 g/dL (32-36); Mean Corpuscular Volume 107.4 fL (80-100); Monocytes # (auto) 0.57 K/uL (0.11-0.59); Monocytes % (auto) 7.9 %; Neutrophils # (auto) 5.41 K/uL (1.4-6.5); Neutrophils % (auto) 74.9 %; Platelet Count 153 K/uL (130-400); RDW Coefficient of Variation 14.3 % (11.5-14.5); RDW Standard Deviation 55.5 fL (36.4-46.3); Red Blood Count 2.82 M/uL (4.2-5.4); White Blood Count 7.22 K/uL (4.8-10.8)
--- NOTE | 2018-11-06 14:22 | CT Scan Report ---
CT head/brain wo con CT DOSE: HISTORY: Trauma. Mental status change. fall eval for bleed TECHNIQUE: Multiaxial CT images of the head were performed without the use of intravenous contrast. A dose lowering technique was utilized adhering to the principles of ALARA. Comparison: 07/13/2018 Findings: The paranasal sinuses and mastoid air cells are clear. Age-related atrophy and chronic smal l vessel change. No acute intracranial hemorrhage. Ventricular system is midline. Impression: No acute intracranial abnormality. Age-related change. The above report was generated using voice recognition software. It may contain grammatical, syntax or spelling errors. Electronically signed by: Dat Drew M.D. 11/06/2018 2:21 PM
--- NOTE | 2018-11-06 14:24 | CT Scan Report ---
CT SCAN OF THE CERVICAL SPINE CLINICAL HISTORY: Fall. COMPARISON STUDY: CT scan of the cervical spine dated 03/23/2017. TECHNIQUE: CT scan of the cervical spine is performed from the skull base to the upper thoracic spine . Images are reviewed in the axial, sagittal, and coronal planes. IV contrast was not administered fo r this examination. A dose lowering technique was utilized adhering to the principles of ALARA. CT DOSE: 883.37 mGy.cm FINDINGS: Skeletal structures: The skeletal structures are osteopenic. There is no evidence of fracture or subl uxation involving the cervical spine. Vertebral body height is maintained. There is minimal anterolis thesis at C3-C4 and C4-C5. Alignment is otherwise preserved. Anterior osteophytes are seen throughout . The odontoid process and lateral masses are intact. The atlantoaxial articulation is preserved noti ng productive degenerative change. The spinous processes appear intact. There is moderate multilevel cervical spondylosis. Uncovertebral and facet arthropathy contribute neural foraminal stenosis at sev eral levels. Intervertebral discs: There is moderate to advanced disc space narrowing seen at C5-C6 and C6-C7. Mil d disc space narrowing is seen at the remaining cervical levels. Central canal: Small posterior disc osteophyte complexes at C5-C6 and C6-C7 may contribute to mild ac quired compromise of the central canal. Soft tissues: The prevertebral and paraspinous soft tissues are within normal limits. There is athero sclerotic calcification of the carotid bulbs. Calcified sialoliths are noted in the parotid glands. Calvarium: The visualized calvarium at the skull base appears intact. Brain parenchyma: Partially visualized brain parenchyma the skull base is within normal limits. Sinuses and mastoids: The visualized paranasal sinuses are clear. The mastoid air cells are well pneu matized. Lung apices: Emphysematous change is seen at the lung apices. IMPRESSION: 1. There is no evidence of fracture or subluxation involving the cervical spine. 2. Osteopenia and spondylotic change as above. 3. Sialolithiasis of the parotid glands. Electronically signed by: Zeb Noble M.D. 11/06/2018 2:23 PM
[2018-11-06 14:33] LABS: Alanine Aminotransferase 13 U/L (12-78); Albumin Level 3.4 gm/dl (3.4-5.0); Alkaline Phosphatase 60 U/L (45-117); BUN Creatinine Ratio 19.8 (10-20); Bilirubin,Total 0.7 mg/dl (0.2-1); Blood Urea Nitrogen 14 mg/dl (7-18); Calcium 8.5 mg/dl (8.5-10.1); Carbon Dioxide 24 mmol/L (21-32); Chloride 99 mmol/L (98-107); Est GFR (African American) 92.3; Est GFR (Non-African American) 79.7; Globulin 3.6 gm/dl (2.5-4.0); Glucose 100 mg/dl (70-99); Sodium 132 mmol/L (136-145); Troponin I < 0.015 ng/ml (0-0.045)
--- NOTE | 2018-11-06 15:00 | XRay Report ---
XR thoracic spine 3V routine HISTORY: Trauma fall eval for fx COMPARISON: None. FINDINGS: There is no fracture. No subluxation. Moderate degenerative disc changes throughout. IMPRESSION: No fracture or subluxation within the thoracic spine. The above report was generated using voice recognition software. It may contain grammatical, syntax or spelling errors. Electronically signed by: Dat Drew M.D. 11/06/2018 2:58 PM
--- NOTE | 2018-11-06 15:01 | XRay Report ---
XR lumbar spine 2-3V CLINICAL HISTORY: fall eval for fx trauma. Pain. COMPARISON STUDY: 03/23/2017 FINDINGS: Considerable degenerative change throughout the entire lumbar region. Mild wedge deformity inferior endplate L4 and superior endplate of L5 unchanged from the prior study. No significant new o r interval process compared to the prior study. Slight increase in wedge deformity superior endplate L2 although this appears to be a nonacute process despite its absence on the prior study. IMPRESSION: Considerable degenerative change. Several wedge deformities considered old. No acute pro cess. The above report was generated using voice recognition software. It may contain grammatical, syntax or spelling errors. Electronically signed by: Dat Drew M.D. 11/06/2018 3:00 PM
--- NOTE | 2018-11-06 15:04 | XRay Report ---
XR hip RT 2-3V w pelvis CLINICAL HISTORY: Fall.] For fracture. COMPARISON: Right hip radiographs July 22, [address] of the pelvis July 21, 2017. FINDINGS: Old left superior pubic ring fractures are noted. Osteopenia is noted. No acute fractures identified within the pelvis or hips. A right femoral internal fixation is noted. Fracture appears he aled. No acute fracture is identified. Hardware is intact. IMPRESSION: 1. No acute fracture within the pelvis or hips. 2. Status post proximal right femoral internal fixation. Hardware intact. No acute fracture identifie d. Electronically signed by: Neville Wiseman M.D. 11/06/2018 3:02 PM
[2018-11-06] MEDS ORDERED: SODIUM CHLORIDE IV STA (15:06)
[2018-11-06] MEDS ORDERED: FOSPHENYTOIN IV STA (15:06)
--- NOTE | 2018-11-06 15:45 | History & Physical Report ---
Date of Service November 06, 2018 Assessment & Plan (1) Seizure: H/O seizure disorder Loss of Consciousness: Likely Seziure DD: Syncope CT head: No acute process Monitor in Telemetry for arrhythmia Check EEG Continue IV fluids Fall/Seizure/Aspiration precautions Continue Keppra 750 BID Consulted Neurology Ativan PRN seizures Dysuria/Increased Urinary Frequency: UA not suggestive of UTI monitor (2) Ambulatory dysfunction: Uses walker/Wheelchair at baseline PT/OT (3) Hyponatremia: Mild hyponatremia Sodium levels:132 IV fluids monitor sodium levels (4) Fall: Imaging studies negative for fractures PT/OT Fall precautions Rheumatoid arthritis Continue prednisone COPD Tobacco abuse No signs of exacerbations Nebs PRN Anemia of chronic disease Hb at baseline monitor cbc CKD III Cr at baseline Monitor renal function Restless leg syndrome: Continue ropinirole. DVT Px: Heparin SQ Code Status: DNR only as per my discussion with patient Disposition: To be determined History of Present Illness Chief Complaint: Seizure Vs Syncope Primary Care Provider: Zakia Galvez DO Patient is a 78 yr female with PMH of rheumatoid arthritis, COPD, tobacco abuse , epilepsy, anemia of chronic disease, HLD, CKD III, GERD, PVD, anxiety, blind right eye and other problems presents with history of Possible Syncope Vs seizure episode yesterday. Patient is a very poor historian. She states feeling "lousy". She reports falling off of [employer] yesterday and having lost consciousness after the fall. She is unsure of the events after the fall and she lives alone. Prior to fall she reports feeling foggy and "My head was spinning" She reports having frontal and occipital headache since the fall and believes she hit her head at the time. Denies any change in vision. She is also unsure if she had a seizure like episode. Reports chronic vertigo which is worse yesterday. Reports nausea and dysuria associated with increased urinary frequency as well. UA is not suggestive of UTI. CT head showed no acute findings. Also reports chronic right hip pain. Ambulates with walker and uses wheelchair as well at baseline. Reports being complaint with seizure medications. Denies any history of chest pain, dyspnea, cough, fever, chills, change in vision, vomiting, abdominal pain, diarrhea, hematuria, recent change in medications. Allergies Allergy/AdvReac Type Severity Reaction Status Date / Time pollen extracts Allergy Mild SEASONAL-ITCHY Verified 07/13/18 14:49 EYES,RUNNY NOSE Dust Allergy Mild ITCHY Uncoded 07/13/18 14:49 EYES,RUNNY NOSE Home Medications Home Medications Medication Instructions Recorded Confirmed Type Calcium 600 with Vitamin D3 1 tab PO DAILY 07/13/18 11/06/18 History M.V.I. Adult 1 tab PO DAILY 07/13/18 11/06/18 History albuterol sulfate [Ventolin HFA] 1 - 2 puff INHALATION Q4 07/13/18 11/06/18 History amitriptyline 25 mg PO HS 07/13/18 11/06/18 History ascorbic acid (vitamin C) 500 mg PO DAILY 07/13/18 11/06/18 History atorvastatin 20 mg PO HS 07/13/18 11/06/18 History baclofen 10 mg PO TID PRN 07/13/18 11/06/18 History cyanocobalamin (vitamin B-12) 1,000 mcg PO DAILY 07/13/18 11/06/18 History [Vitamin B-12] docusate sodium 1 cap PO BID 07/13/18 11/06/18 History ferrous gluconate 324 mg PO DAILY 07/13/18 11/06/18 History fluticasone 2 spray INTRANASAL BID 07/13/18 11/06/18 History loratadine [Claritin] 10 mg PO DAILY 07/13/18 11/06/18 History oxycodone 5 mg PO Q4H PRN 07/13/18 11/06/18 History prednisone 5 mg PO HS 07/13/18 11/06/18 History ranitidine HCl 150 mg PO BID 07/13/18 11/06/18 History ropinirole 0.25 mg PO HS 07/13/18 11/06/18 History tiotropium bromide 1 puff INHALATION DAILY 07/13/18 11/06/18 History meclizine 12.5 mg PO TID PRN #10 tab 07/17/18 11/06/18 Rx guaifenesin 2 tab PO DAILY PRN 11/06/18 11/06/18 History levetiracetam [Keppra] 750 mg PO BID 11/06/18 11/06/18 History meloxicam 7.5 mg PO DAILY 11/06/18 11/06/18 History menthol 1 patch TOPICAL DAILY PRN 11/06/18 11/06/18 History Past Med/Surg History Medical History Anxiety (Chronic) Allergic rhinitis (Chronic) DNR (do not resuscitate) (Chronic) Anemia of chronic disease (Chronic) Tobacco use disorder (Chronic) COPD (chronic obstructive pulmonary disease) (Chronic) Severe protein-calorie malnutrition (Chronic) Blind right eye (Chronic) Seizure disorder (Chronic) Restless leg syndrome (Chronic) Rheumatoid arthritis (Chronic) Epilepsy (Chronic) Surgical History Status post appendectomy (Chronic) Status post tubal ligation (Chronic) Status post hysterectomy (Chronic) Status post exploratory laparotomy (Chronic) "x3 for adhesions" Status post cataract extraction (Chronic) Status post ovarian cystectomy (Chronic) Status post tonsillectomy (Chronic) Family History Other Family history non-contributory Social History marital status: / Current Living Situation: Alone Other Information That Helps Us Care for You: No Feels Safe at Home: Yes Safety Concerns: Feels Safe At This Time Smoking Status: Current every day smoker Tobacco Type: cigarettes Cigarettes per Day: 20 Do You Dip or Chew Tobacco: No Second Hand Exposure: Yes Hx Alcohol Use: Yes Alcohol type: beer Alcohol Intake Frequency: other Hx Substance Use: No Beliefs That Will Affect Care: None Preferred Language: [place] Communication Ability: Effective Review of Systems All systems reviewed & are unremarkable except as noted in HPI & below Physical Exam 2 Vital Signs (Past 24 Hours): Last Vital Signs Temp 36.6 C 11/06/18 13:55 Pulse 63 11/06/18 13:55 Resp 20 11/06/18 13:55 BP 183/67 H 11/06/18 13:55 Pulse Ox 98 11/06/18 13:55 Results & Data Laboratory Results Short CBC 11/06/18 Range/Units 13:38 WBC 7.22 (4.8-10.8) K/uL Hgb 10.5 L (12.0-16.0) g/dL Hct 30.3 L (37-47) % Plt Count 153 (130-400) K/uL BMP 11/06/18 11/06/18 13:38 15:37 Sodium 132 L Potassium 4.6 Chloride 99 Carbon Dioxide 24 BUN 14 Creatinine 0.72 Glucose 100 H Calcium 8.5 Cardiac Enzymes 11/06/18 Range/Units 13:38 Troponin I < 0.015 (0-0.045) ng/ml Liver Function 11/06/18 11/06/18 Range/Units 13:38 15:37 Total Bilirubin 0.7 (0.2-1) mg/dl AST 25 (15-37) U/L ALT 13 (12-78) U/L Alkaline Phosphatase 60 (45-117) U/L Albumin 3.4 (3.4-5.0) gm/dl Urine 11/06/18 Range/Units 12:20 Urine Color Yellow Urine Appearance Clear (Clear) Urine pH 7.5 (4.5-7.5) Ur Specific [place] 1.009 (1.000-1.030) Urine Protein Negative (Negative) Urine Glucose (UA) Negative (Negative) Diagnostic Findings CT head: No acute intracranial abnormality. Age-related change. Neck CT: 1. There is no evidence of fracture or subluxation involving the cervical spine. 2. Osteopenia and spondylotic change as above. 3. Sialolithiasis of the parotid glands. R hip X ray: 1. No acute fracture within the pelvis or hips. 2. Status post proximal right femoral internal fixation. Hardware intact. No acute fracture identified. Lumbar Spine: Considerable degenerative change. Several wedge deformities considered old. No acute process. Throracic Spine: No fracture or subluxation within the thoracic spine. ECG Additional Comments: EKG: NSR, QTC:437 _ (1) Fall Encounter type: initial encounter Qualified Code(s): W19.XXXA - Unspecified fall, initial encounter
[2018-11-06 16:16] LABS: Potassium 4.6 mmol/L (3.5-5.1)
[2018-11-06] MEDS ORDERED: MECLIZINE 12.5 MG TAB PO PRN (18:44)
[2018-11-06] MEDS ORDERED: ACETAMINOPHEN 325 MG TAB PO PRN (18:44)
[2018-11-06] MEDS ORDERED: POLYETHYLENE (MIRALAX) 17 GM PACK PO PRN (18:44)
[2018-11-06] MEDS ORDERED: ALBUT/IPRATROP 3MG/0.5MG NEB 3 ML VIAL NEB PRN (18:44)
[2018-11-06] MEDS ORDERED: SODIUM CHLORIDE 0.9% 1000ML 1,000 ML IV ONE (18:44)
[2018-11-06 19:17] LABS: Appearance Urine Clear (Clear); Bilirubin Urine Negative (Negative); Color Urine Yellow; Glucose Urine UA Negative (Negative); Ketones Urine Negative (Negative); Leukocyte Esterase Urine Negative (Negative); Nitrite Urine Negative (Negative); Protein Urine Negative (Negative); Specific Gravity Urine 1.009 (1.000-1.030); Urobilinogen Urine Negative (Negative); pH Urine 7.5 (4.5-7.5)
[2018-11-06] MEDS ORDERED: LORazepam 2 MG/4 ML VIAL IV PRN (19:35)
--- NOTE | 2018-11-06 19:36 | Emergency Department Note ---
Entered by Charisma Melissa acting as a scribe for Jamie Feliz MD History of Present Illness General Chief complaint: Pain (Generalized) Source: patient History of Present Illness Onset (ago): hour(s) 5 Location: head Pain Consistency: + other (episode) Maximum Pain Intensity: 10 Quality: + other (seizure) Associated symptoms: + denies other symptoms (biting her tongue) and + other ( right leg pain, head pain, neck pain); no nausea/vomiting (vomiting ) The patient is a 78 year old female who presents to the Emergency Room with complaints of an episode of a seizure occurring 5 hours ago. The patient states that she has a history of Epilepsy and is on Dilantin and Keppra. She states that she last had a seizure years ago. She notes that she has not missed any doses of her medication and has not any recent changes in the dosages. She reports that 5 hours ago while on the toilet she had a seizure. She states that she fell to the ground. She reports that when she came to she pressed her Life Alert button because she was having right leg pain, head pain, and neck pain. The patient notes that she currently is on Oxycodone for pain all over her body from arthritis. The patient denies vomiting and biting her tongue. She states she used to have grand mal seizures but not anymore. She thinks she did have a seizure because she knows how she feels after a seizure. She does not think she just passed out. Home Medications Home Medications Medication Instructions Recorded Confirmed Type Calcium 600 with Vitamin D3 1 tab PO DAILY 07/13/18 11/06/18 History M.V.I. Adult 1 tab PO DAILY 07/13/18 11/06/18 History albuterol sulfate [Ventolin HFA] 1 - 2 puff INHALATION Q4 07/13/18 11/06/18 History amitriptyline 25 mg PO HS 07/13/18 11/06/18 History ascorbic acid (vitamin C) 500 mg PO DAILY 07/13/18 11/06/18 History atorvastatin 20 mg PO HS 07/13/18 11/06/18 History baclofen 10 mg PO TID PRN 07/13/18 11/06/18 History cyanocobalamin (vitamin B-12) 1,000 mcg PO DAILY 07/13/18 11/06/18 History [Vitamin B-12] docusate sodium 1 cap PO BID 07/13/18 11/06/18 History ferrous gluconate 324 mg PO DAILY 07/13/18 11/06/18 History fluticasone 2 spray INTRANASAL BID 07/13/18 11/06/18 History loratadine [Claritin] 10 mg PO DAILY 07/13/18 11/06/18 History oxycodone 5 mg PO Q4H PRN 07/13/18 11/06/18 History prednisone 5 mg PO HS 07/13/18 11/06/18 History ranitidine HCl 150 mg PO BID 07/13/18 11/06/18 History ropinirole 0.25 mg PO HS 07/13/18 11/06/18 History tiotropium bromide 1 puff INHALATION DAILY 07/13/18 11/06/18 History meclizine 12.5 mg PO TID PRN #10 tab 07/17/18 11/06/18 Rx guaifenesin 2 tab PO DAILY PRN 11/06/18 11/06/18 History levetiracetam [Keppra] 750 mg PO BID 11/06/18 11/06/18 History meloxicam 7.5 mg PO DAILY 11/06/18 11/06/18 History menthol 1 patch TOPICAL DAILY PRN 11/06/18 11/06/18 History Allergies Allergy/AdvReac Type Severity Reaction Status Date / Time pollen extracts Allergy Mild SEASONAL-ITCHY Verified 07/13/18 14:49 EYES,RUNNY NOSE Dust Allergy Mild ITCHY Uncoded 07/13/18 14:49 EYES,RUNNY NOSE Past Med/Surg History Medical History Anxiety (Chronic) Allergic rhinitis (Chronic) DNR (do not resuscitate) (Chronic) Anemia of chronic disease (Chronic) Tobacco use disorder (Chronic) COPD (chronic obstructive pulmonary disease) (Chronic) Severe protein-calorie malnutrition (Chronic) Blind right eye (Chronic) Seizure disorder (Chronic) Restless leg syndrome (Chronic) Rheumatoid arthritis (Chronic) Epilepsy (Chronic) Surgical History Status post appendectomy (Chronic) Status post tubal ligation (Chronic) Status post hysterectomy (Chronic) Status post exploratory laparotomy (Chronic) "x3 for adhesions" Status post cataract extraction (Chronic) Status post ovarian cystectomy (Chronic) Status post tonsillectomy (Chronic) Family History Other Family history non-contributory Social History marital status: / Current Living Situation: Alone Other Information That Helps Us Care for You: No Feels Safe at Home: Yes Safety Concerns: Feels Safe At This Time Smoking Status: Current every day smoker Tobacco Type: cigarettes Cigarettes per Day: 20 Do You Dip or Chew Tobacco: No Second Hand Exposure: Yes Hx Alcohol Use: Yes Alcohol type: beer Alcohol Intake Frequency: other Hx Substance Use: No Beliefs That Will Affect Care: None Preferred Language: Persian Communication Ability: Effective Review of Systems See HPI for pertinent positives & negatives. and A total of 10 systems reviewed and were otherwise negative Physical Exam Vital Signs Vital Signs - 24 hr 11/06/18 12:15 11/06/18 13:55 11/06/18 15:11 Temperature 37.4 C 36.6 C Temperature Source Oral Oral Sepsis Recent Fever Within 48 Hours No Sepsis New/Unexplained Change in Mental Status No Sepsis Action Taken by Nursing No Action Required Pulse Rate 72 62 Pulse Rate [Apical] 63 Pulse Rhythm [Apical] Pulse Strength [Apical] Respiratory Rate 16 20 13 Respiratory Effort / Characteristics Respiratory Depth Respiratory Pattern Blood Pressure 205/79 H 198/69 H Blood Pressure [Right Arm] 183/67 H Blood Pressure Mean 121 112 Blood Pressure Mean [Right Arm] 105 Blood Pressure Position [Right Arm] Pulse Oximetry 98 98 Oxygen Delivery Method Room Air Room Air 11/06/18 15:30 11/06/18 15:50 11/06/18 16:00 Temperature Temperature Source Sepsis Recent Fever Within 48 Hours Sepsis New/Unexplained Change in Mental Status Sepsis Action Taken by Nursing Pulse Rate 60 69 Pulse Rate [Apical] Pulse Rhythm [Apical] Pulse Strength [Apical] Respiratory Rate 16 14 Respiratory Effort / Characteristics Non-Labored Spontaneous Respiratory Depth Respiratory Pattern Regular Blood Pressure Blood Pressure [Right Arm] Blood Pressure Mean Blood Pressure Mean [Right Arm] Blood Pressure Position [Right Arm] Pulse Oximetry Oxygen Delivery Method Room Air 11/06/18 16:15 11/06/18 16:33 11/06/18 17:36 Temperature Temperature Source Sepsis Recent Fever Within 48 Hours Sepsis New/Unexplained Change in Mental Status Sepsis Action Taken by Nursing Pulse Rate 70 61 59 L Pulse Rate [Apical] Pulse Rhythm [Apical] Pulse Strength [Apical] Respiratory Rate 18 18 18 Respiratory Effort / Characteristics Respiratory Depth Respiratory Pattern Blood Pressure 139/42 L 145/59 H 171/64 H Blood Pressure [Right Arm] Blood Pressure Mean 74 87 Blood Pressure Mean [Right Arm] Blood Pressure Position [Right Arm] Pulse Oximetry 98 Oxygen Delivery Method Room Air 11/06/18 18:49 Temperature 36.5 C Temperature Source Oral Sepsis Recent Fever Within 48 Hours Sepsis New/Unexplained Change in Mental Status Sepsis Action Taken by Nursing Pulse Rate Pulse Rate [Apical] 59 L Pulse Rhythm [Apical] Regular Pulse Strength [Apical] Normal Respiratory Rate 18 Respiratory Effort / Characteristics Non-Labored Spontaneous Respiratory Depth Normal Respiratory Pattern Regular Blood Pressure Blood Pressure [Right Arm] 168/47 H Blood Pressure Mean Blood Pressure Mean [Right Arm] 87 Blood Pressure Position [Right Arm] Lying Pulse Oximetry 91 Oxygen Delivery Method Room Air Constitutional: Vital signs reviewed. Eyes: Pupils are reactive to light. Right eye is enucleated and the left eye has a tear drop pupil. Conjunctiva are noninjected. ENT: Pharynx is clear without erythema or exudate. Mucous membranes are moist. Neck supple without meningeal signs. Respiratory: Clear to auscultation bilaterally. Breath sounds are equal bilaterally. Cardiovascular: Regular rate and rhythm. No rubs or gallops. GI: Soft, nondistended and nontender. Bowel sounds are present. Musculoskeletal: No midline tenderness to the cervical spine. Right hip tenderness without shortening. Integumentary: No cyanosis. Neurological: The patient is awake and alert. No focal deficits. Cranial nerves 3-12 are intact. Motor and sensation are intact in all extremities. Psychiatric: Normal affect. Course 1258: Past medical records reviewed. The patient was evaluated in room B7, and a complete history and physical examination were performed. 1510: I reevaluated the patient and she is more awake and alert. She states that she is pretty sure had a seizure and didn't just pass out because she knows when she has a seizure. She states that she thinks her leg hurts probably because of her chronic back pain. I updated her on her test results and her treatment plan. She verbally agrees and understands. 1524: I paged the hospitalist at this time. 1531: I reviewed the patient's case with LISA Shepherd Hospitalist. She will evaluate the patient for further management. Consultations Consultation #1: I reviewed the patient's case with LISA Shepherd Hospitalist. She will evaluate the patient for further management. Time: 15:31 Administered Medications Discontinued Medications Fosphenytoin Sodium 800 mgpe/ (Sodium Chloride) 66 mls @ 420 mls/hr IV NOW STA Stop: 11/06/18 15:15 Last Infusion: 11/06/18 16:10 Dose: 0 mls/hr Admin: 11/06/18 15:57 Dose: 420 mls/hr Morphine Sulfate (Morphine Sulfate) 2 mg IV NOW STA Stop: 11/06/18 13:04 Last Admin: 11/06/18 13:48 Dose: 2 mg Ondansetron HCl (Zofran) 2 mg IV NOW STA Stop: 11/06/18 13:04 Last Admin: 11/06/18 13:48 Dose: 2 mg Medical Decision Making Differential Diagnosis Differential diagnoses include ICH, concussion, cervical fracture, hip fracture , medication noncompliance, break through seizure, syncope. Medical Records Attestation: I reviewed the patient's medical records. Home Medications Current Medication List: was personally reviewed by me Laboratory Data Attestation: I reviewed the patient's lab results. Result diagrams: 11/06/18 13:38 11/06/18 15:37 Lab Results 11/06/18 11/06/18 11/06/18 Range/Units 12:20 13:38 13:38 WBC 7.22 (4.8-10.8) K/uL RBC 2.82 L (4.2-5.4) M/uL Hgb 10.5 L (12.0-16.0) g/dL Hct 30.3 L (37-47) % MCV 107.4 H (80-100) fL MCH 37.2 H (25-34) pg MCHC 34.7 (32-36) g/dL RDW Std Deviation 55.5 H (36.4-46.3) fL RDW Coeff of Mandeep 14.3 (11.5-14.5) % Plt Count 153 (130-400) K/uL MPV 9.0 (7.4-10.4) fL Immature Gran % (Auto) 0.3 % Neut % (Auto) 74.9 % Lymph % (Auto) 16.1 % Luna % (Auto) 7.9 % Eos % (Auto) 0.7 % Baso % (Auto) 0.1 % Immature Gran # (Auto) 0.02 (0.00-0.02) K/uL Neut # (Auto) 5.41 (1.4-6.5) K/uL Lymph # (Auto) 1.16 L (1.2-3.4) K/uL Luna # (Auto) 0.57 (0.11-0.59) K/uL Eos # (Auto) 0.05 (0-0.5) K/uL Baso # (Auto) 0.01 (0-0.2) K/uL Sodium 132 L (136-145) mmol/L Potassium (3.5-5.1) mmol/L Chloride 99 (98-107) mmol/L Carbon Dioxide 24 (21-32) mmol/L Anion Gap 8.0 (3-11) BUN 14 (7-18) mg/dl Creatinine 0.72 (0.6-1.2) mg/dl Est Cr Clr Drug Dosing 41.0 ml/min Est GFR ( Amer) 92.3 Est GFR (Non-Af Amer) 79.7 BUN/Creatinine Ratio 19.8 (10-20) Glucose 100 H (70-99) mg/dl Calcium 8.5 (8.5-10.1) mg/dl Magnesium (1.8-2.4) mg/dl Total Bilirubin 0.7 (0.2-1) mg/dl AST (15-37) U/L ALT 13 (12-78) U/L Alkaline Phosphatase 60 (45-117) U/L Troponin I < 0.015 (0-0.045) ng/ml Total Protein 7.0 (6.4-8.2) gm/dl Albumin 3.4 (3.4-5.0) gm/dl Globulin 3.6 (2.5-4.0) gm/dl Albumin/Globulin Ratio 1.0 (0.9-2) Urine Color Yellow Urine Appearance Clear (Clear) Urine pH 7.5 (4.5-7.5) Ur Specific [place] 1.009 (1.000-1.030) Urine Protein Negative (Negative) Urine Glucose (UA) Negative (Negative) Urine Ketones Negative (Negative) Urine Blood Negative (Negative) Urine Nitrite Negative (Negative) Urine Bilirubin Negative (Negative) Urine Urobilinogen Negative (Negative) Ur Leukocyte Esterase Negative (Negative) Phenytoin (10-20) mcg/ml 11/06/18 11/06/18 Range/Units 13:38 15:37 WBC (4.8-10.8) K/uL RBC (4.2-5.4) M/uL Hgb (12.0-16.0) g/dL Hct (37-47) % MCV (80-100) fL MCH (25-34) pg MCHC (32-36) g/dL RDW Std Deviation (36.4-46.3) fL RDW Coeff of Mandeep (11.5-14.5) % Plt Count (130-400) K/uL MPV (7.4-10.4) fL Immature Gran % (Auto) % Neut % (Auto) % Lymph % (Auto) % Luna % (Auto) % Eos % (Auto) % Baso % (Auto) % Immature Gran # (Auto) (0.00-0.02) K/uL Neut # (Auto) (1.4-6.5) K/uL Lymph # (Auto) (1.2-3.4) K/uL Luna # (Auto) (0.11-0.59) K/uL Eos # (Auto) (0-0.5) K/uL Baso # (Auto) (0-0.2) K/uL Sodium (136-145) mmol/L Potassium 4.6 (3.5-5.1) mmol/L Chloride (98-107) mmol/L Carbon Dioxide (21-32) mmol/L Anion Gap (3-11) BUN (7-18) mg/dl Creatinine (0.6-1.2) mg/dl Est Cr Clr Drug Dosing ml/min Est GFR ( Amer) Est GFR (Non-Af Amer) BUN/Creatinine Ratio (10-20) Glucose (70-99) mg/dl Calcium (8.5-10.1) mg/dl Magnesium 2.0 (1.8-2.4) mg/dl Total Bilirubin (0.2-1) mg/dl AST 25 (15-37) U/L ALT (12-78) U/L Alkaline Phosphatase (45-117) U/L Troponin I (0-0.045) ng/ml Total Protein (6.4-8.2) gm/dl Albumin (3.4-5.0) gm/dl Globulin (2.5-4.0) gm/dl Albumin/Globulin Ratio (0.9-2) Urine Color Urine Appearance (Clear) Urine pH (4.5-7.5) Ur Specific [place] (1.000-1.030) Urine Protein (Negative) Urine Glucose (UA) (Negative) Urine Ketones (Negative) Urine Blood (Negative) Urine Nitrite (Negative) Urine Bilirubin (Negative) Urine Urobilinogen (Negative) Ur Leukocyte Esterase (Negative) Phenytoin 0.5 L (10-20) mcg/ml Imaging Data Radiologist's Impression: Radiology results as stated below per my review and the radiologist's interpretation: XR thoracic spine 3V routine HISTORY: Trauma fall eval for fx COMPARISON: None. FINDINGS: There is no fracture. No subluxation. Moderate degenerative disc changes throughout. IMPRESSION: No fracture or subluxation within the thoracic spine. The above report was generated using voice recognition software. It may contain grammatical, syntax or spelling errors. Electronically signed by: Dat Drew M.D. 11/06/2018 2:58 PM XR lumbar spine 2-3V CLINICAL HISTORY: fall eval for fx trauma. Pain. COMPARISON STUDY: 03/23/2017 FINDINGS: Considerable degenerative change throughout the entire lumbar region. Mild wedge deformity inferior endplate L4 and superior endplate of L5 unchanged from the prior study. No significant new or interval process compared to the prior study. Slight increase in wedge deformity superior endplate L2 although this appears to be a nonacute process despite its absence on the prior study. IMPRESSION: Considerable degenerative change. Several wedge deformities considered old. No acute process. The above report was generated using voice recognition software. It may contain grammatical, syntax or spelling errors. Electronically signed by: Dat Drew M.D. 11/06/2018 3:00 PM XR hip RT 2-3V w pelvis CLINICAL HISTORY: Fall.] For fracture. COMPARISON: Right hip radiographs July 22, [address] of the pelvis July 21, 2017. FINDINGS: Old left superior pubic ring fractures are noted. Osteopenia is noted. No acute fractures identified within the pelvis or hips. A right femoral internal fixation is noted. Fracture appears healed. No acute fracture is identified. Hardware is intact. IMPRESSION: 1. No acute fracture within the pelvis or hips. 2. Status post proximal right femoral internal fixation. Hardware intact. No acute fracture identified. Electronically signed by: Neville Wiseman M.D. 11/06/2018 3:[address] head/brain wo con CT DOSE: HISTORY: Trauma. Mental status change. fall eval for bleed TECHNIQUE: Multiaxial CT images of the head were performed without the use of intravenous contrast. A dose lowering technique was utilized adhering to the principles of ALARA. Comparison: 07/13/2018 Findings: The paranasal sinuses and mastoid air cells are clear. Age-related atrophy and chronic small vessel change. No acute intracranial hemorrhage. Ventricular system is midline. Impression: No acute intracranial abnormality. Age-related change. The above report was generated using voice recognition software. It may contain grammatical, syntax or spelling errors. Electronically signed by: Dat Drew M.D. 11/06/2018 2:[address] SCAN OF THE CERVICAL SPINE CLINICAL HISTORY: Fall. COMPARISON STUDY: CT scan of the cervical spine dated 03/23/2017. TECHNIQUE: CT scan of the cervical spine is performed from the skull base to the upper thoracic spine. Images are reviewed in the axial, sagittal, and coronal planes. IV contrast was not administered for this examination. A dose lowering technique was utilized adhering to the principles of ALARA. CT DOSE: 883.37 mGy.cm FINDINGS: Skeletal structures: The skeletal structures are osteopenic. There is no evidence of fracture or subluxation involving the cervical spine. Vertebral body height is maintained. There is minimal anterolisthesis at C3-C4 and C4-C5. Alignment is otherwise preserved. Anterior osteophytes are seen throughout. The odontoid process and lateral masses are intact. The atlantoaxial articulation is preserved noting productive degenerative change. The spinous processes appear intact. There is moderate multilevel cervical spondylosis. Uncovertebral and facet arthropathy contribute neural foraminal stenosis at several levels. Intervertebral discs: There is moderate to advanced disc space narrowing seen at C5-C6 and C6-C7. Mild disc space narrowing is seen at the remaining cervical levels. Central canal: Small posterior disc osteophyte complexes at C5-C6 and C6-C7 may contribute to mild acquired compromise of the central canal. Soft tissues: The prevertebral and paraspinous soft tissues are within normal limits. There is atherosclerotic calcification of the carotid bulbs. Calcified sialoliths are noted in the parotid glands. Calvarium: The visualized calvarium at the skull base appears intact. Brain parenchyma: Partially visualized brain parenchyma the skull base is within normal limits. Sinuses and mastoids: The visualized paranasal sinuses are clear. The mastoid air cells are well pneumatized. Lung apices: Emphysematous change is seen at the lung apices. IMPRESSION: 1. There is no evidence of fracture or subluxation involving the cervical spine. 2. Osteopenia and spondylotic change as above. 3. Sialolithiasis of the parotid glands. Electronically signed by: Zeb Noble M.D. 11/06/2018 2:23 PM ECG Data Attestation: I personally reviewed and interpreted this ECG as follows: Indication: other (seizure) Rate (beats per minute): 64 Rhythm: normal sinus Findings: no PVC and no ST elevation Blood Pressure Blood Pressure Findings: Elevated blood pressure Blood Pressure Disposition: Referred to patients primary care provider MDM Narrative I did perform a limited focused review of portions of the patient's old chart on the electronic medical record. The patient was admitted in July for dizziness. She had an MRI and CT of her brain, which were both unremarkable. I did evaluate the patient as noted above. Patient is presenting with what she thinks is a breakthrough seizure. She has a history of seizure disorder but has not had a seizure in years. She does not feel like she just passed out. IV access was established. The patient was placed on a continuous imaging system administrator. The patient was placed in a rigid cervical collar. I did order and personally review the patient's 12-lead EKG and x-rays as described above. Twelve-lead EKG does not demonstrate any acute ischemia. X-rays do not demonstrate any acute abnormality. No fractures are noted. I did order and review the patient's blood work as noted in the electronic medical record. She is chronically anemic. Electrolytes are unremarkable. She does have a phenytoin level of 0.5. I did treat her with 800 equivalents of fosphenytoin IV. I did order a CT of the head and cervical spine. I did review the images myself as well as the radiology report as described above. There is no evidence of fracture or intracranial hemorrhage. The cervical collar was removed. I did discuss the test results with the patient. She was given a small dose of IV morphine and Zofran for her pain. I did recommend hospitalization as the patient is unable to ambulate at this time and she lives alone. I did I did discuss the case with the hospitalist and welfare case worker. Impression & Plan Seizure, Ambulatory dysfunction, Hyponatremia, Subtherapeutic serum dilantin level, Injury of hip, right, Fall Discharge Plan Visit Data *Final* Discharge Date/Time: 11/06/18 17:36 Chief Complaint: Pain (Generalized) ED Provider: Jamie Feliz Discharge Problem: Seizure, Ambulatory dysfunction, Hyponatremia, Subtherapeutic serum dilantin level, Injury of hip, right, Fall Patient Disposition: Admitted As Inpatient Discharge Instructions Interventions: ED Discharge Assessment Last Done: 11/06/18 17:36 The karime's documentation has been prepared under my direction and personally reviewed by me in its entirety. I confirm that the note above accurately reflects all work, treatment, procedures, and medical decision making performed by me.
--- NOTE | 2018-11-06 20:11 | Neurology Consultation ---
Date of Consultation November 06, 2018 Assessment & Plan (1) Seizure: 1. seizure plan- outpatient she was tapered off dilantin 2. Keppra 750 mg q 12 hours will increase to 1000 mg q12 hours 3. seizure vs mechanical fall- unlikely seizure 4. current agitation likely pain medication withdrawal rather than post ictal state 5. seizure precautions and fall precautions 6. ambulatory dysfunction with unsteady gait ongoing long time EtOH use in past 7. smoking cessation advised 8. malnutrition - ongoing issues 9. PT/OT for discharge needs 10. safety issues- may need high level of care -nursing evaluation of current situation Pt seen and examined. Unclear if pt had sz. No one was home with pt, Pt thought she might have had sz. She is extremely agitated but tells me she has not taken "oxy" for 2 day. She indicates she must have dropped her oxy. She received 120 on Dec 4. She is agitated, but oriented. Her head is NCAT, no tongue lac noted. MOves all fours symm. Nursing notes she settled down with morphine. Imp narcotic withdrawal, poss sz,poss post-ictal state. I assume the hospitalist team will reinstitute narcotics. As pt last keppra level was on low side of nml at 750 mg bid, increase to 1000 mg bid and rec additional eval for non- neurologic causes of syncope. HI Lin MD Supervising Physician Co-Signing Physician Notes I have seen and discussed above patient with Dr Hyun Lin, neurology History of Present Illness Reason for Consultation: Syncope vs Seizure Requesting Physician: Nehemias Emerson MD Attending Physician: Nehemias Emerson MD History of Present Illness Emily is a 78 year old female with PMH seizure, ambulatory dysfunction, hyponatremia, vertigo, tobacco disorder, COPD, blind right eye, RLS, RA. She presented to the ED after a fall while ambulating to the bathroom. She reports she has not missed any medications doses. she is complaining of back and neck pain and states she ran out of her pain meds. She is not sure if she fall because of her ongoing balance issues or she had a seizure. She pressed her life alert button because she was having head neck and back pain. denies CP, SOB , abdominal pain, one sided weakness, numbness tingling, N, V. Allergies Allergy/AdvReac Type Severity Reaction Status Date / Time pollen extracts Allergy Mild SEASONAL-ITCHY Verified 07/13/18 14:49 EYES,RUNNY NOSE Dust Allergy Mild ITCHY Uncoded 07/13/18 14:49 EYES,RUNNY NOSE Home Medications Home Medications Medication Instructions Recorded Confirmed Type Calcium 600 with Vitamin D3 1 tab PO DAILY 07/13/18 11/06/18 History M.V.I. Adult 1 tab PO DAILY 07/13/18 11/06/18 History albuterol sulfate [Ventolin HFA] 1 - 2 puff INHALATION Q4 07/13/18 11/06/18 History amitriptyline 25 mg PO HS 07/13/18 11/06/18 History ascorbic acid (vitamin C) 500 mg PO DAILY 07/13/18 11/06/18 History atorvastatin 20 mg PO HS 07/13/18 11/06/18 History baclofen 10 mg PO TID PRN 07/13/18 11/06/18 History cyanocobalamin (vitamin B-12) 1,000 mcg PO DAILY 07/13/18 11/06/18 History [Vitamin B-12] docusate sodium 1 cap PO BID 07/13/18 11/06/18 History ferrous gluconate 324 mg PO DAILY 07/13/18 11/06/18 History fluticasone 2 spray INTRANASAL BID 07/13/18 11/06/18 History loratadine [Claritin] 10 mg PO DAILY 07/13/18 11/06/18 History oxycodone 5 mg PO Q4H PRN 07/13/18 11/06/18 History prednisone 5 mg PO HS 07/13/18 11/06/18 History ranitidine HCl 150 mg PO BID 07/13/18 11/06/18 History ropinirole 0.25 mg PO HS 07/13/18 11/06/18 History tiotropium bromide 1 puff INHALATION DAILY 07/13/18 11/06/18 History meclizine 12.5 mg PO TID PRN #10 tab 07/17/18 11/06/18 Rx guaifenesin 2 tab PO DAILY PRN 11/06/18 11/06/18 History levetiracetam [Keppra] 750 mg PO BID 11/06/18 11/06/18 History meloxicam 7.5 mg PO DAILY 11/06/18 11/06/18 History menthol 1 patch TOPICAL DAILY PRN 11/06/18 11/06/18 History Patient History Medical History Anxiety (Chronic) Allergic rhinitis (Chronic) DNR (do not resuscitate) (Chronic) Anemia of chronic disease (Chronic) Tobacco use disorder (Chronic) COPD (chronic obstructive pulmonary disease) (Chronic) Severe protein-calorie malnutrition (Chronic) Blind right eye (Chronic) Seizure disorder (Chronic) Restless leg syndrome (Chronic) Rheumatoid arthritis (Chronic) Epilepsy (Chronic) Surgical History Status post appendectomy (Chronic) Status post tubal ligation (Chronic) Status post hysterectomy (Chronic) Status post exploratory laparotomy (Chronic) "x3 for adhesions" Status post cataract extraction (Chronic) Status post ovarian cystectomy (Chronic) Status post tonsillectomy (Chronic) Family History Other Family history non-contributory Social History marital status: / Current Living Situation: Alone Other Information That Helps Us Care for You: No Feels Safe at Home: Yes Safety Concerns: Feels Safe At This Time Smoking Status: Current every day smoker Tobacco Type: cigarettes Cigarettes per Day: 20 Do You Dip or Chew Tobacco: No Second Hand Exposure: Yes Hx Alcohol Use: Yes Alcohol type: beer Alcohol Intake Frequency: other Hx Substance Use: No Beliefs That Will Affect Care: None Preferred Language: Slovak Communication Ability: Effective Physical Exam 2 Vital Signs (Past 24 Hours): Last Vital Signs Temp 36.5 C 11/06/18 18:49 Pulse 59 L 11/06/18 18:49 Resp 18 11/06/18 18:49 BP 168/47 H 11/06/18 18:49 Pulse Ox 91 11/06/18 18:49 Physical Exam: Constitutional: appearance thin pale, ill appearing Ears, Nose, Mouth and Throat: mucous membranes moist, no injection and skin normal Cardiovascular: normal S-1 and S-2 and regular rate and rhythm Respiratory: course breath sounds Musculoskeletal: no peripheral edema and good distal pulses Skin: no stigmata of neurocutaneous disease noted and normal and intact Eyes: right eye bullous keratous NEUROLOGIC EXAMINATION: Mental status: Alert and interactive Oriented to 2019 Oriented to person Speech fluent no slurred speech continues to say I dont want to catch a seizure Cranial Nerves facial symmetry Gait/Stance: Posture lying in bed very restless Strength: moving all ext spontaneously without restriction Results & Data Laboratory Results Abnormal lab results 11/06/18 11/06/18 11/06/18 Range/Units 13:38 13:38 13:38 RBC 2.82 L (4.2-5.4) M/uL Hgb 10.5 L (12.0-16.0) g/dL Hct 30.3 L (37-47) % MCV 107.4 H (80-100) fL MCH 37.2 H (25-34) pg RDW Std Deviation 55.5 H (36.4-46.3) fL Lymph # (Auto) 1.16 L (1.2-3.4) K/uL Sodium 132 L (136-145) mmol/L Glucose 100 H (70-99) mg/dl Phenytoin 0.5 L (10-20) mcg/ml Diagnostic Findings CT head- no acute findings CT c spine- no acute findings
[2018-11-06] MEDS: FLUTICASONE PROPIONATE NA SPR 16 GM BTL SCH (20:39)
[2018-11-06] MEDS: DOCUSATE SODIUM 100 MG CAP PO SCH (20:39)
[2018-11-06] MEDS: MELOXICAM 7.5 MG TAB PO SCH (20:40)
[2018-11-06] MEDS: AMITRIPTYLINE HCL 25 MG TAB PO SCH (20:40)
[2018-11-06] MEDS: predniSONE 5 MG TAB PO SCH (20:40)
[2018-11-06 20:41] LABS: Prothrombin Time 10.2 Seconds (9.0-12.0)
[2018-11-06] MEDS: ATORVASTATIN 20 MG TAB PO SCH (20:41)
[2018-11-06] MEDS: ROPINIROLE HCL 0.25 MG TABLET PO SCH (20:42)
[2018-11-06] MEDS: HEPARIN SOD 5,000 UNIT/0.5 ML VIAL SQ SCH (20:42)
[2018-11-06] MEDS ORDERED: levETIRAcetam 250 MG TAB PO SCH (21:00)
[2018-11-07 06:03] LABS: Appearance Urine Clear (Clear); Bilirubin Urine Negative (Negative); Color Urine Yellow; Glucose Urine UA Negative (Negative); Ketones Urine Negative (Negative); Leukocyte Esterase Urine Negative (Negative); Nitrite Urine Negative (Negative); Protein Urine Negative (Negative); Specific Gravity Urine 1.007 (1.000-1.030); Urobilinogen Urine Negative (Negative); pH Urine 7.5 (4.5-7.5)
[2018-11-07 07:09] LABS: Hematocrit (blood only) 33.5 % (37-47); Hemoglobin 11.2 g/dL (12.0-16.0); Mean Corpuscular Hgb Conc 33.4 g/dL (32-36); Mean Corpuscular Volume 108.8 fL (80-100); Platelet Count 176 K/uL (130-400); RDW Coefficient of Variation 14.7 % (11.5-14.5); RDW Standard Deviation 57.9 fL (36.4-46.3); Red Blood Count 3.08 M/uL (4.2-5.4); White Blood Count 7.29 K/uL (4.8-10.8)
[2018-11-07 07:38] LABS: BUN Creatinine Ratio 21.6 (10-20); Calcium 8.4 mg/dl (8.5-10.1); Creatinine Clr Calc Pharmacy 43.2 ml/min; Est GFR (African American) 98.4; Est GFR (Non-African American) 84.9; Magnesium 2.1 mg/dl (1.8-2.4)
[2018-11-07 07:46] LABS: Potassium 3.9 mmol/L (3.5-5.1)
[2018-11-07] MEDS ORDERED: levETIRAcetam 500 MG TAB PO SCH (09:00)
--- NOTE | 2018-11-07 12:31 | Procedure Note ---
EEG Procedure Note Date of Service November 07, 2018 Start / End Times Start Time: 08:20 End Time: 08:[address] Nehemias Velasco History A 78 year old woman admitted for possible seizure. She has a history of epilepsy. EEG performed for evaluation of epileptiform activity. Home Medication List Home Medications Medication Instructions Recorded Confirmed Type Calcium 600 with Vitamin D3 1 tab PO DAILY 07/13/18 11/06/18 History M.V.I. Adult 1 tab PO DAILY 07/13/18 11/06/18 History albuterol sulfate [Ventolin HFA] 1 - 2 puff INHALATION Q4 07/13/18 11/06/18 History amitriptyline 25 mg PO HS 07/13/18 11/06/18 History ascorbic acid (vitamin C) 500 mg PO DAILY 07/13/18 11/06/18 History atorvastatin 20 mg PO HS 07/13/18 11/06/18 History baclofen 10 mg PO TID PRN 07/13/18 11/06/18 History cyanocobalamin (vitamin B-12) 1,000 mcg PO DAILY 07/13/18 11/06/18 History [Vitamin B-12] docusate sodium 1 cap PO BID 07/13/18 11/06/18 History ferrous gluconate 324 mg PO DAILY 07/13/18 11/06/18 History fluticasone 2 spray INTRANASAL BID 07/13/18 11/06/18 History loratadine [Claritin] 10 mg PO DAILY 07/13/18 11/06/18 History oxycodone 5 mg PO Q4H PRN 07/13/18 11/06/18 History prednisone 5 mg PO HS 07/13/18 11/06/18 History ranitidine HCl 150 mg PO BID 07/13/18 11/06/18 History ropinirole 0.25 mg PO HS 07/13/18 11/06/18 History tiotropium bromide 1 puff INHALATION DAILY 07/13/18 11/06/18 History meclizine 12.5 mg PO TID PRN #10 tab 07/17/18 11/06/18 Rx guaifenesin 2 tab PO DAILY PRN 11/06/18 11/06/18 History levetiracetam [Keppra] 750 mg PO BID 01/02/19 01/02/19 History meloxicam 7.5 mg PO DAILY 11/06/18 11/06/18 History menthol 1 patch TOPICAL DAILY PRN 11/06/18 11/06/18 History Inpatient Medication List Amitriptyline HCl (Elavil) 25 mg PO HS [facility] Stop: 12/06/18 20:59 Last Admin: 11/06/18 20:40 Dose: 25 mg Atorvastatin Calcium (Lipitor) 20 mg PO HS [facility] Stop: 12/06/18 20:59 Last Admin: 11/06/18 20:41 Dose: 20 mg Docusate Sodium (Colace) 100 mg PO BID [facility] Stop: 12/06/18 20:59 Last Admin: 11/06/18 20:39 Dose: 100 mg Fluticasone Propionate (Flonase) 2 sprays NA BID [facility] Stop: 12/06/18 20:59 Last Admin: 11/06/18 20:39 Dose: 2 sprays Heparin Sodium (Porcine) (Heparin Sodium (Porcine)) 5,000 units SQ Q12 [facility] Stop: 12/06/18 20:59 Last Admin: 11/06/18 20:42 Dose: 5,000 units Lorazepam (Ativan) 2 mg in 4 mls @ 4 mls/min IV Q2H PRN PRN Reason: Seizure Stop: 12/06/18 19:34 Last Admin: 11/07/18 00:15 Dose: 4 mls/min Meloxicam (Mobic) 7.5 mg PO DAILY [facility] Stop: 12/06/18 08:59 Last Admin: 11/06/18 20:40 Dose: 7.5 mg Miscellaneous (Order Awaiting Action) 1 ea N/A QS [facility] Stop: 12/07/18 00:00 Last Admin: 11/06/18 23:45 Dose: Not Given Prednisone (Prednisone) 5 mg PO HS [facility] Stop: 12/06/18 20:59 Last Admin: 11/06/18 20:40 Dose: 5 mg Ranitidine HCl (Zantac) 150 mg PO BID [facility]ANDA Stop: 12/06/18 20:59 Last Admin: 11/06/18 20:41 Dose: 150 mg Ropinirole HCl (Requip) 0.25 mg PO HS [facility] Stop: 12/06/18 20:59 Last Admin: 11/06/18 20:42 Dose: 0.25 mg Discontinued Medications Fosphenytoin Sodium 800 mgpe/ (Sodium Chloride) 66 mls @ 420 mls/hr IV NOW STA Stop: 11/06/18 15:15 Last Infusion: 11/06/18 16:10 Dose: 0 mls/hr Admin: 11/06/18 15:57 Dose: 420 mls/hr Sodium Chloride (Nss 1000ml) 1,000 mls @ 75 mls/hr IV .[id number] ONE Stop: 11/07/18 08:03 Last Admin: 11/06/18 19:44 Dose: 75 mls/hr Levetiracetam (Keppra) 750 mg PO BID [facility]ANDA Stop: 12/06/18 20:59 Last Admin: 11/06/18 20:41 Dose: 750 mg Morphine Sulfate (Morphine Sulfate) 2 mg IV NOW STA Stop: 11/06/18 13:04 Last Admin: 11/06/18 13:48 Dose: 2 mg Ondansetron HCl (Zofran) 2 mg IV NOW STA Stop: 11/06/18 13:04 Last Admin: 11/06/18 13:48 Dose: 2 mg Description This is a 21 electrode EEG with a single channel dedicated to limited EKG. The electrodes were placed in accordance with the International 10-20 system. At the onset of the EEG the patient is awake. The posterior dominant is 7-8 Hz. Anteriorly there is some low amplitude intermittent activity which is obscured by motion and electrical artifact. Drowsiness is characterized by further slowing of the background rhythm with loss of myogenic artifact. Impression: Abnormal awake and drowsy routine EEG due to mild generalized background slowing suggestive of a non specific encephalopathy. There is no evidence of focal slowing or epileptiform activity.
[2018-11-07] MEDS: CALCIUM 600MG + VIT D 400 IU TAB PO SCH (13:53)
[2018-11-07] MEDS: LORATADINE 10 MG TAB PO SCH (13:53)
[2018-11-07] MEDS: DOCUSATE SODIUM 100 MG CAP PO SCH ×2 (13:54→20:50)
[2018-11-07] MEDS: FLUTICASONE PROPIONATE NA SPR 16 GM BTL SCH ×2 (13:55→20:53)
[2018-11-07] MEDS: FERROUS GLUCONATE 324 MG TAB PO SCH (13:55)
[2018-11-07] MEDS: MELOXICAM 7.5 MG TAB PO SCH (13:56)
[2018-11-07] MEDS: HEPARIN SOD 5,000 UNIT/0.5 ML VIAL SQ SCH ×2 (13:56→20:56)
[2018-11-07] MEDS: TIOTROPIUM BROMIDE 5 PUFF/90 MCG INH INH SCH (13:57)
[2018-11-07] MEDS: CYANOCOBALAMIN 500 MCG TABLET (VITAMIN B-12) PO SCH (13:57)
[2018-11-07] MEDS: ASCORBIC ACID 500 MG TAB PO SCH (14:05)
--- NOTE | 2018-11-07 14:41 | Neurology Progress Note ---
Date of Service November 07, 2018 Assessment & Plan (1) Seizure: 1. seizure plan- outpatient she was tapered off dilantin 2. Keppra 750 mg q 12 hours will increase to 1000 mg q12 hours 3. seizure vs mechanical fall- unlikely seizure 4. post agitation fall likely pain medication withdrawal rather than post ictal state 5. seizure precautions and fall precautions 6. ambulatory dysfunction with unsteady gait ongoing long time EtOH use in past 7. smoking cessation advised 8. malnutrition - ongoing issues- nutrition add supplements 9. PT/OT for discharge needs 10. safety issues- may need high level of care -nursing evaluation of current situation Pt seen. unwitnessed LOC at home with pt reported incontinence. 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 On admission with agitated and complaining of pain which responded to morphine. Cannot exclude sz at home. Keppra dose increased. Further cardiovascular eval per hospitalist team. HI Lin MD Supervising Physician Co-Signing Physician Notes I have seen and discussed above patient with Dr Hyun Lin, neurology Subjective Emily is a 78 year old female with PMH seizure, ambulatory dysfunction, hyponatremia, vertigo, tobacco disorder, COPD, blind right eye, RLS, RA. She presented to the ED after a fall while ambulating to the bathroom. She reports she has not missed any medications doses. she is complaining of back and neck pain and states she ran out of her pain meds. She is not sure if she fall because of her ongoing balance issues or she had a seizure but she remembers waking up on the floor She pressed her life alert button because she was having head neck and back pain. She states she is feeling better today but she doesn't want to move. she thinks she bit her lip and was incontinent urine after the fall. denies CP, SOB, abdominal pain, one sided weakness, numbness tingling, N, V. 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
--- NOTE | 2018-11-07 17:19 | Hospitalist Progress Note ---
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 There is no evidence of focal slowing or epileptiform activity. Received IV fluids Fall/Seizure/Aspiration precautions Keppra increased to 1000 mg BID Appreciate Neurology Input Ativan PRN seizures only Dysuria/Increased Urinary Frequency: UA not suggestive of UTI monitor (2) Ambulatory dysfunction: Uses walker/Wheelchair at baseline PT/OT (3) Hyponatremia: Mild hyponatremia: Resolved Sodium levels:132>>137 Received IV fluids monitor sodium levels (4) Fall: Imaging studies negative for fractures PT/OT Fall precautions Rheumatoid arthritis Continue prednisone COPD Tobacco abuse No signs of exacerbations Nebs PRN Anemia of chronic disease Hb at baseline monitor cbc CKD III Cr at baseline Monitor renal function Restless leg syndrome: Continue ropinirole. DVT Px: Heparin SQ Code Status: DNR only as per my discussion with patient Disposition: To be determined Subjective Patient is seen and examined at bedside Very sleepy this morning, received ativan overnight No new complaints Has not taken meds and refused lunch today per staff Denies chest pain, dyspnea No rhythm issues on monitor Physical Exam 2 Vital Signs (Past 24 Hours): Last Vital Signs Temp 36.8 C 11/07/18 16:25 Pulse 65 11/07/18 16:25 Resp 20 11/07/18 16:25 BP 135/63 11/07/18 16:25 Pulse Ox 91 11/07/18 16:25 Physical Exam: Physical Exam: Vitals signs as noted above General Appearance:Thin, Frail, no apparent distress, chronic ill appearing Head: normocephalic, Atraumatic Eyes: normal inspection, EOMI, R eye blindness Neck: supple, Trachea midline Respiratory/Chest: Normal breath sounds, CTA Cardiovascular: S1, S2, No murmur Abdomen/GI:Soft, Non tender, Bowel sounds present Extremities/Musculoskelatal:normal inspection, no edema, R hip tender, decreased ROM Neurologic/Psych:AAOX3, grossly no focal neurological deficits Skin: normal color, warm Results & Data Laboratory Results Short CBC 11/07/18 Range/Units 06:22 WBC 7.29 (4.8-10.8) K/uL Hgb 11.2 L (12.0-16.0) g/dL Hct 33.5 L (37-47) % Plt Count 176 (130-400) K/uL BMP 11/07/18 06:22 Sodium 137 Potassium 3.9 D Chloride 106 Carbon Dioxide 24 BUN 14 Creatinine 0.64 Glucose 109 H Calcium 8.4 L Urine 11/06/18 11/06/18 Range/Units 12:20 19:07 Urine Color Yellow Yellow Urine Appearance Clear Clear (Clear) Urine pH 7.5 7.5 (4.5-7.5) Ur Specific [place] 1.009 1.007 (1.000-1.030) Urine Protein Negative Negative (Negative) Urine Glucose (UA) Negative Negative (Negative) Diagnostic Findings EEG: Abnormal awake and drowsy routine EEG due to mild generalized background slowing suggestive of a non specific encephalopathy. There is no evidence of focal slowing or epileptiform activity. _ (1) Fall Encounter type: initial encounter Qualified Code(s): W19.XXXA - Unspecified fall, initial encounter
[2018-11-07] MEDS: predniSONE 5 MG TAB PO SCH (20:51)
[2018-11-07] MEDS: AMITRIPTYLINE HCL 25 MG TAB PO SCH (20:52)
[2018-11-07] MEDS: ATORVASTATIN 20 MG TAB PO SCH (20:52)
[2018-11-07] MEDS: ROPINIROLE HCL 0.25 MG TABLET PO SCH (20:53)
[2018-11-07] MEDS: OXYCODONE HCL IR 5 MG TAB (IMMEDIATE RELEASE) PO PRN (22:48)
[2018-11-08] MEDS: BACLOFEN 10 MG TAB PO PRN ×2 (00:26→20:04)
[2018-11-08] MEDS: OXYCODONE HCL IR 5 MG TAB (IMMEDIATE RELEASE) PO PRN ×4 (04:17→23:39)
[2018-11-08 07:39] LABS: BUN Creatinine Ratio 24.2 (10-20); Calcium 8.5 mg/dl (8.5-10.1); Est GFR (African American) 95.5; Est GFR (Non-African American) 82.4; Potassium 3.9 mmol/L (3.5-5.1)
[2018-11-08] MEDS: LORATADINE 10 MG TAB PO SCH (09:17)
[2018-11-08] MEDS: FLUTICASONE PROPIONATE NA SPR 16 GM BTL SCH ×2 (09:17→21:04)
[2018-11-08] MEDS: FERROUS GLUCONATE 324 MG TAB PO SCH (09:18)
[2018-11-08] MEDS: CYANOCOBALAMIN 500 MCG TABLET (VITAMIN B-12) PO SCH (09:18)
[2018-11-08] MEDS: DOCUSATE SODIUM 100 MG CAP PO SCH ×2 (09:18→21:08)
[2018-11-08] MEDS: ASCORBIC ACID 500 MG TAB PO SCH (09:18)
[2018-11-08] MEDS: MELOXICAM 7.5 MG TAB PO SCH (09:20)
[2018-11-08] MEDS: CALCIUM 600MG + VIT D 400 IU TAB PO SCH (09:20)
[2018-11-08] MEDS: HEPARIN SOD 5,000 UNIT/0.5 ML VIAL SQ SCH ×2 (09:21→21:09)
[2018-11-08] MEDS: TIOTROPIUM BROMIDE 5 PUFF/90 MCG INH INH SCH (09:22)
--- NOTE | 2018-11-08 12:46 | Neurology Progress Note ---
Date of Service November 08, 2018 Assessment & Plan (1) Seizure: 1. seizure plan- outpatient she was tapered off dilantin 2. Keppra 750 mg q 12 hours will increase to 1000 mg q12 hours 3. seizure vs mechanical fall- possible seizure 4. post agitation fall likely pain medication withdrawal rather than post ictal state 5. seizure precautions and fall precautions 6. ambulatory dysfunction with unsteady gait ongoing long time EtOH use in past 7. smoking cessation advised 8. malnutrition - ongoing issues- nutrition add supplements 9. PT/OT for discharge needs 10. safety issues- may need high level of care -nursing evaluation of current situation 11. ok to discharge when medically stable follow up already scheduled with Dr Lin as an outpatient Supervising Physician Co-Signing Physician Notes I have seen and discussed above patient with Dr Jose D Goodson, neurology I have examined and interviewed Mrs. Gagnon today and discussed her case with Hyun Barber PA-C. I reviewed appropriate imaging studies and laboratory studies and the recorded history. He has a seizure disorder now being managed with increased Keppra to thousand milligrams twice a day in the setting of a probable breakthrough seizure that precipitated the current admission. Whether or not that particular event was also precipitated by potential narcotic analgesic withdrawal is something that we really cannot establish at present. Her electroencephalogram shows nothing other than some mild generalized slowing consistent with a nonspecific encephalopathy and possibly postictal state really does not change the management plan at this point. At this time neurology is going to sign off if the patient is medically stable and the family feels she is ready for discharge and I would suggest she be sent home follow-up with neurology as previously scheduled in our office with Hyun Goodson MD Johnathan Diaz is a 78 year old female with PMH seizure, ambulatory dysfunction, hyponatremia, vertigo, tobacco disorder, COPD, blind right eye, RLS, RA. She presented to the ED after a fall while ambulating to the bathroom. She reports she has not missed any medications doses. she is complaining of back and neck pain and states she ran out of her pain meds. She is not sure if she fall because of her ongoing balance issues or she had a seizure but she remembers waking up on the floor She pressed her life alert button because she was having head neck and back pain. She thinks she bit her lip and was incontinent urine after the fall. Today she is stating her pain is well controlled and no additional seizures. She is tired because she is not sleeping well in the hospital. denies CP, SOB, abdominal pain, one sided weakness, numbness tingling, N, V. 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
--- NOTE | 2018-11-08 17:45 | Hospitalist Progress Note ---
Date of Service November 08, 2018 Assessment & Plan (1) Seizure: H/O seizure disorder Loss of Consciousness: Likely Seizure DD: Syncope/withdrawal from pain meds CT head: No acute process athletic monitor : no issues --EEG: Abnormal awake and drowsy routine EEG due to mild generalized background slowing suggestive of a non specific encephalopathy. There is no evidence of focal slowing or epileptiform activity. Received IV fluids Fall/Seizure/Aspiration precautions Keppra increased to 1000 mg BID Appreciate Neurology Input Ativan PRN seizures only Continue current management Needs follow up with Neurology upon discharge Dysuria/Increased Urinary Frequency: UA not suggestive of UTI monitor (2) Ambulatory dysfunction: Uses walker/Wheelchair at baseline PT/OT (3) Hyponatremia: Mild hyponatremia: Resolved Sodium levels:132>>135 Received IV fluids monitor sodium levels (4) Fall: Imaging studies negative for fractures PT/OT Fall precautions Rheumatoid arthritis Continue prednisone COPD Tobacco abuse No signs of exacerbations Nebs PRN Anemia of chronic disease Hb at baseline monitor cbc CKD III Cr at baseline Monitor renal function Restless leg syndrome: Continue ropinirole. DVT Px: Heparin SQ Code Status: DNR only as per my discussion with patient Disposition: May benefit from rehab placement but patient currently not interested Subjective Patient is seen and examined at bedside More alert, awake today States feeling tired No seizure activity overnight Reports some leg pain Denies chest pain, dyspnea Physical Exam 2 Vital Signs (Past 24 Hours): Last Vital Signs Temp 36.7 C 11/08/18 15:18 Pulse 95 H 11/08/18 15:18 Resp 20 11/08/18 15:18 BP 153/63 H 11/08/18 15:18 Pulse Ox 94 11/08/18 15:18 Physical Exam: Physical Exam: Vitals signs as noted above General Appearance:Thin, Frail, no apparent distress, chronic ill appearing Head: normocephalic, Atraumatic Eyes: normal inspection, EOMI, R eye blindness Neck: supple, Trachea midline Respiratory/Chest: Normal breath sounds, CTA Cardiovascular: S1, S2, No murmur Abdomen/GI:Soft, Non tender, Bowel sounds present Extremities/Musculoskelatal:normal inspection, no edema, R hip tender, decreased ROM Neurologic/Psych:AAOX3, grossly no focal neurological deficits Skin: normal color, warm Results & Data Laboratory Results [facility] 11/08/18 06:41 Sodium 135 L Potassium 3.9 Chloride 105 Carbon Dioxide 23 BUN 17 Creatinine 0.70 Glucose 85 Calcium 8.5 Medications Administered Current Inpatient Medications Acetaminophen (Tylenol) 650 mg PO Q4H PRN PRN Reason: Pain or Fever Stop: 12/06/18 18:43 Albuterol (Duoneb) 3 ml NEB Q4R PRN PRN Reason: Shortness Of Breath Or Wheezin Stop: 12/06/18 18:43 Amitriptyline HCl (Elavil) 25 mg PO HS [facility] Stop: 12/06/18 20:59 Last Admin: 11/07/18 20:52 Dose: 25 mg Ascorbic Acid (Vitamin C) 500 mg PO DAILY [facility] Stop: 12/07/18 08:59 Last Admin: 11/08/18 09:18 Dose: 500 mg Atorvastatin Calcium (Lipitor) 20 mg PO HS [facility] Stop: 12/06/18 20:59 Last Admin: 11/07/18 20:52 Dose: 20 mg Baclofen (Lioresal) 10 mg PO TID PRN PRN Reason: Back Pain Stop: 12/06/18 18:43 Last Admin: 11/08/18 00:26 Dose: 10 mg Cyanocobalamin (Vitamin B-12) 1,000 mcg PO DAILY [facility] Stop: 12/07/18 08:59 Last Admin: 11/08/18 09:18 Dose: 1,000 mcg Docusate Sodium (Colace) 100 mg PO BID [facility] Stop: 12/06/18 20:59 Last Admin: 11/08/18 09:18 Dose: 100 mg Ferrous Gluconate (Ferrous Gluconate) 324 mg PO DAILY [facility] Stop: 12/07/18 08:59 Last Admin: 11/08/18 09:18 Dose: 324 mg Fluticasone Propionate (Flonase) 2 sprays NA BID [facility] Stop: 12/06/18 20:59 Last Admin: 11/08/18 09:17 Dose: 2 sprays Heparin Sodium (Porcine) (Heparin Sodium (Porcine)) 5,000 units SQ Q12 [facility] Stop: 12/06/18 20:59 Last Admin: 11/08/18 09:21 Dose: 5,000 units Lorazepam (Ativan) 2 mg in 4 mls @ 4 mls/min IV Q2H PRN PRN Reason: Seizure Stop: 12/06/18 19:34 Last Admin: 11/07/18 00:15 Dose: 4 mls/min Levetiracetam 1,000 mg/ (Dextrose) 110 mls @ 440 mls/hr IV Q12 [facility] Stop: 12/07/18 15:44 Last Infusion: 11/08/18 09:45 Dose: Infused Loratadine (Claritin) 10 mg PO DAILY [facility] Stop: 12/07/18 08:59 Last Admin: 11/08/18 09:17 Dose: 10 mg Meclizine HCl (Antivert) 12.5 mg PO TID PRN PRN Reason: dizziness Stop: 12/06/18 18:43 Meloxicam (Mobic) 7.5 mg PO DAILY [facility] Stop: 12/06/18 08:59 Last Admin: 11/08/18 09:20 Dose: 7.5 mg Miscellaneous (Order Awaiting Action) 1 ea N/A QS [facility] Stop: 12/07/18 00:00 Last Admin: 11/08/18 15:33 Dose: Not Given Multivitamins/Minerals (Caltrate Plus) 1 tab PO DAILY [facility]DA Stop: 12/07/18 08:59 Last Admin: 11/08/18 09:20 Dose: 1 tab Ondansetron HCl (Zofran) 4 mg IV Q6H PRN PRN Reason: Nausea Stop: 12/06/18 18:43 Oxycodone HCl (Roxicodone Immediate Rel) 5 mg PO Q4H PRN PRN Reason: Pain Stop: 11/20/18 18:43 Last Admin: 11/08/18 16:30 Dose: 5 mg Polyethylene Glycol (Miralax Powder Packet) 17 gm PO DAILY PRN PRN Reason: Constipation Stop: 12/06/18 18:43 Prednisone (Prednisone) 5 mg PO HS [facility] Stop: 12/06/18 20:59 Last Admin: 11/07/18 20:51 Dose: 5 mg Ranitidine HCl (Zantac) 150 mg PO BID [facility] Stop: 12/06/18 20:59 Last Admin: 11/08/18 09:17 Dose: 150 mg Ropinirole HCl (Requip) 0.25 mg PO HS [facility] Stop: 12/06/18 20:59 Last Admin: 11/07/18 20:53 Dose: 0.25 mg Tiotropium [place] (Spiriva) 1 puffs INH DAILY [facility] Stop: 12/07/18 08:59 Last Admin: 11/08/18 09:22 Dose: 1 puffs _ (1) Fall Encounter type: initial encounter Qualified Code(s): W19.XXXA - Unspecified fall, initial encounter
[2018-11-08] MEDS: predniSONE 5 MG TAB PO SCH (21:07)
[2018-11-08] MEDS: ATORVASTATIN 20 MG TAB PO SCH (21:07)
[2018-11-08] MEDS: AMITRIPTYLINE HCL 25 MG TAB PO SCH (21:07)
[2018-11-08] MEDS: ROPINIROLE HCL 0.25 MG TABLET PO SCH (21:08)
[2018-11-08] MEDS: LIDOCAINE 5% 1 PATCH TD SCH (21:14)
[2018-11-09 06:52] LABS: Hemoglobin 10.6 g/dL (12.0-16.0); Mean Corpuscular Hgb Conc 34.2 g/dL (32-36); Mean Corpuscular Volume 107.6 fL (80-100); Mean Platelet Volume 8.5 fL (7.4-10.4); Platelet Count 149 K/uL (130-400); RDW Coefficient of Variation 14.5 % (11.5-14.5); RDW Standard Deviation 56.7 fL (36.4-46.3); Red Blood Count 2.88 M/uL (4.2-5.4); White Blood Count 4.78 K/uL (4.8-10.8)
[2018-11-09 07:29] LABS: BUN Creatinine Ratio 25.6 (10-20); Calcium 8.9 mg/dl (8.5-10.1); Creatinine Clr Calc Pharmacy 35.6 ml/min; Est GFR (African American) 92.3; Est GFR (Non-African American) 79.7; Potassium 4.1 mmol/L (3.5-5.1)
[2018-11-09] MEDS: OXYCODONE HCL IR 5 MG TAB (IMMEDIATE RELEASE) PO PRN ×3 (09:02→19:27)
[2018-11-09] MEDS: ASCORBIC ACID 500 MG TAB PO SCH (09:03)
[2018-11-09] MEDS: CYANOCOBALAMIN 500 MCG TABLET (VITAMIN B-12) PO SCH (09:03)
[2018-11-09] MEDS: CALCIUM 600MG + VIT D 400 IU TAB PO SCH (09:03)
[2018-11-09] MEDS: MELOXICAM 7.5 MG TAB PO SCH (09:03)
[2018-11-09] MEDS: LORATADINE 10 MG TAB PO SCH (09:03)
[2018-11-09] MEDS: DOCUSATE SODIUM 100 MG CAP PO SCH ×2 (09:03→20:29)
[2018-11-09] MEDS: FERROUS GLUCONATE 324 MG TAB PO SCH (09:03)
[2018-11-09] MEDS: TIOTROPIUM BROMIDE 5 PUFF/90 MCG INH INH SCH (09:04)
[2018-11-09] MEDS: FLUTICASONE PROPIONATE NA SPR 16 GM BTL SCH ×2 (09:04→20:31)
[2018-11-09] MEDS: HEPARIN SOD 5,000 UNIT/0.5 ML VIAL SQ SCH ×2 (09:05→20:34)
[2018-11-09] MEDS: BACLOFEN 10 MG TAB PO PRN ×2 (09:27→17:02)
[2018-11-09] MEDS: ONDANSETRON INJ 2 MG/ML 2 ML VIAL IV PRN (11:17)
--- NOTE | 2018-11-09 14:20 | Hospitalist Progress Note ---
Date of Service November 09, 2018 Assessment & Plan (1) Seizure: H/O seizure disorder Loss of Consciousness: Likely Seizure DD: Syncope/withdrawal from pain meds CT head: No acute process hall monitor : no issues --EEG: Abnormal awake and drowsy routine EEG due to mild generalized background slowing suggestive of a non specific encephalopathy. There is no evidence of focal slowing or epileptiform activity. Received IV fluids Fall/Seizure/Aspiration precautions Continue Keppra increased to 1000 mg BID Appreciate Neurology Input Ativan PRN seizures Needs follow up with Neurology upon discharge Would benefit from rehab placement Dysuria/Increased Urinary Frequency: UA not suggestive of UTI monitor (2) Ambulatory dysfunction: Uses walker/Wheelchair at baseline PT/OT (3) Hyponatremia: Mild hyponatremia: Resolved Sodium levels:132>>135>>137 Received IV fluids monitor sodium levels (4) Fall: Imaging studies negative for fractures PT/OT Fall precautions Rheumatoid arthritis Continue prednisone COPD Tobacco abuse No signs of exacerbations Nebs PRN Anemia of chronic disease Hb at baseline monitor cbc CKD III Cr at baseline Monitor renal function Restless leg syndrome: Continue ropinirole. DVT Px: Heparin SQ Code Status: DNR only as per my discussion with patient Disposition: May benefit from rehab placement but patient currently not interested social science manager following Family Contact: Christine Beckford: [phone] Subjective Patient is seen and examined at bedside Reports generalized pain and feels tired No other complaints Currently not interested in rehab placement Discussed with family in detail Denies chest pain, dyspnea, dizziness, nausea Physical Exam 2 Vital Signs (Past 24 Hours): Last Vital Signs Temp 36.6 C 11/09/18 11:59 Pulse 73 11/09/18 11:59 Resp 20 11/09/18 11:59 BP 156/73 H 11/09/18 11:59 Pulse Ox 91 11/09/18 11:59 Physical Exam: Physical Exam: Vitals signs as noted above General Appearance:Thin, Frail, no apparent distress, chronic ill appearing Head: normocephalic, Atraumatic Eyes: normal inspection, EOMI, R eye blindness Neck: supple, Trachea midline Respiratory/Chest: Normal breath sounds, CTA Cardiovascular: S1, S2, No murmur Abdomen/GI:Soft, Non tender, Bowel sounds present Extremities/Musculoskelatal:normal inspection, no edema, R hip chronic pain Neurologic/Psych:AAOX3, grossly no focal neurological deficits Skin: normal color, warm Results & Data Laboratory Results Short CBC 11/09/18 Range/Units 06:41 WBC 4.78 L (4.8-10.8) K/uL Hgb 10.6 L (12.0-16.0) g/dL Hct 31.0 L (37-47) % Plt Count 149 (130-400) K/uL BMP 11/09/18 06:41 Sodium 137 Potassium 4.1 Chloride 106 Carbon Dioxide 27 BUN 18 Creatinine 0.72 Glucose 86 Calcium 8.9 Medications Administered Current Inpatient Medications Acetaminophen (Tylenol) 650 mg PO Q4H PRN PRN Reason: Pain or Fever Stop: 12/06/18 18:43 Albuterol (Duoneb) 3 ml NEB Q4R PRN PRN Reason: Shortness Of Breath Or Wheezin Stop: 12/06/18 18:43 Amitriptyline HCl (Elavil) 25 mg PO HS [facility] Stop: 12/06/18 20:59 Last Admin: 11/08/18 21:07 Dose: 25 mg Ascorbic Acid (Vitamin C) 500 mg PO DAILY [facility] Stop: 12/07/18 08:59 Last Admin: 11/09/18 09:03 Dose: 500 mg Atorvastatin Calcium (Lipitor) 20 mg PO HS [facility] Stop: 12/06/18 20:59 Last Admin: 11/08/18 21:07 Dose: 20 mg Baclofen (Lioresal) 10 mg PO TID PRN PRN Reason: Back Pain Stop: 12/06/18 18:43 Last Admin: 11/09/18 09:27 Dose: 10 mg Cyanocobalamin (Vitamin B-12) 1,000 mcg PO DAILY [facility] Stop: 12/07/18 08:59 Last Admin: 11/09/18 09:03 Dose: 1,000 mcg Docusate Sodium (Colace) 100 mg PO BID [facility] Stop: 12/06/18 20:59 Last Admin: 11/09/18 09:03 Dose: 100 mg Ferrous Gluconate (Ferrous Gluconate) 324 mg PO DAILY [facility] Stop: 12/07/18 08:59 Last Admin: 11/09/18 09:03 Dose: 324 mg Fluticasone Propionate (Flonase) 2 sprays NA BID [facility] Stop: 12/06/18 20:59 Last Admin: 11/09/18 09:04 Dose: 2 sprays Heparin Sodium (Porcine) (Heparin Sodium (Porcine)) 5,000 units SQ Q12 [facility] Stop: 12/06/18 20:59 Last Admin: 11/09/18 09:05 Dose: 5,000 units Lorazepam (Ativan) 2 mg in 4 mls @ 4 mls/min IV Q2H PRN PRN Reason: Seizure Stop: 12/06/18 19:34 Last Admin: 11/07/18 00:15 Dose: 4 mls/min Levetiracetam (Keppra) 1,000 mg PO BID [facility] Stop: 12/09/18 20:59 Lidocaine (Lidoderm 5%) 1 patch TD HS [facility] Stop: 12/08/18 20:59 Last Admin: 11/08/18 21:14 Dose: 1 patch Loratadine (Claritin) 10 mg PO DAILY [facility] Stop: 12/07/18 08:59 Last Admin: 11/09/18 09:03 Dose: 10 mg Meclizine HCl (Antivert) 12.5 mg PO TID PRN PRN Reason: dizziness Stop: 12/06/18 18:43 Meloxicam (Mobic) 7.5 mg PO DAILY [facility] Stop: 12/06/18 08:59 Last Admin: 11/09/18 09:03 Dose: 7.5 mg Miscellaneous (Order Awaiting Action) 1 ea N/A QS [facility] Stop: 12/07/18 00:00 Last Admin: 11/09/18 07:39 Dose: Not Given Miscellaneous (Remove Lidoderm Patch) 1 ea N/A DAILY@0900 [facility] Stop: 12/09/18 08:59 Last Admin: 11/09/18 09:05 Dose: 1 ea Multivitamins/Minerals (Caltrate Plus) 1 tab PO DAILY [facility] Stop: 12/07/18 08:59 Last Admin: 11/09/18 09:03 Dose: 1 tab Ondansetron HCl (Zofran) 4 mg IV Q6H PRN PRN Reason: Nausea Stop: 12/06/18 18:43 Last Admin: 11/09/18 11:17 Dose: 4 mg Oxycodone HCl (Roxicodone Immediate Rel) 5 mg PO Q4H PRN PRN Reason: Pain Stop: 11/20/18 18:43 Last Admin: 11/09/18 13:44 Dose: 5 mg Polyethylene Glycol (Miralax Powder Packet) 17 gm PO DAILY PRN PRN Reason: Constipation Stop: 12/06/18 18:43 Prednisone (Prednisone) 5 mg PO [facility] Stop: 12/06/18 20:59 Last Admin: 11/08/18 21:07 Dose: 5 mg Ranitidine HCl (Zantac) 150 mg PO BID [facility] Stop: 12/06/18 20:59 Last Admin: 11/09/18 09:03 Dose: 150 mg Ropinirole HCl (Requip) 0.25 mg PO [facility] Stop: 12/06/18 20:59 Last Admin: 11/08/18 21:08 Dose: 0.25 mg Tiotropium [place] (Spiriva) 1 puffs INH DAILY [facility] Stop: 12/07/18 08:59 Last Admin: 11/09/18 09:04 Dose: 1 puffs Trolamine Salicylate (Myoflex) 1 appln EXT TID PRN PRN Reason: joint pain Stop: 12/08/18 20:20 _ (1) Fall Encounter type: initial encounter Qualified Code(s): W19.XXXA - Unspecified fall, initial encounter
[2018-11-09] MEDS: LIDOCAINE 5% 1 PATCH TD SCH (20:09)
[2018-11-09] MEDS: TROLAMINE SALICYLATE 10% CRM 255 APPLN/85 GM TUBE EXT PRN (20:10)
[2018-11-09] MEDS: ATORVASTATIN 20 MG TAB PO SCH (20:29)
[2018-11-09] MEDS: predniSONE 5 MG TAB PO SCH (20:29)
[2018-11-09] MEDS: AMITRIPTYLINE HCL 25 MG TAB PO SCH (20:30)
[2018-11-09] MEDS: levETIRAcetam 500 MG TAB PO SCH (20:32)
[2018-11-09] MEDS: ROPINIROLE HCL 0.25 MG TABLET PO SCH (20:32)
[2018-11-10 06:30] LABS: Hematocrit (blood only) 30.3 % (37-47); Hemoglobin 10.3 g/dL (12.0-16.0)
[2018-11-10 07:00] LABS: BUN Creatinine Ratio 32.4 (10-20); Calcium 8.9 mg/dl (8.5-10.1); Creatinine Clr Calc Pharmacy 38.7 ml/min; Est GFR (African American) 97.4; Potassium 4.1 mmol/L (3.5-5.1)
[2018-11-10] MEDS: OXYCODONE HCL IR 5 MG TAB (IMMEDIATE RELEASE) PO PRN ×3 (08:11→23:33)
[2018-11-10] MEDS: DOCUSATE SODIUM 100 MG CAP PO SCH ×2 (08:12→20:03)
[2018-11-10] MEDS: MELOXICAM 7.5 MG TAB PO SCH (08:12)
[2018-11-10] MEDS: levETIRAcetam 500 MG TAB PO SCH ×2 (08:12→20:04)
[2018-11-10] MEDS: CYANOCOBALAMIN 500 MCG TABLET (VITAMIN B-12) PO SCH (08:12)
[2018-11-10] MEDS: BACLOFEN 10 MG TAB PO PRN ×2 (08:12→20:04)
[2018-11-10] MEDS: FLUTICASONE PROPIONATE NA SPR 16 GM BTL SCH ×2 (08:13→20:03)
[2018-11-10] MEDS: TIOTROPIUM BROMIDE 5 PUFF/90 MCG INH INH SCH (08:13)
[2018-11-10] MEDS: FERROUS GLUCONATE 324 MG TAB PO SCH (08:13)
[2018-11-10] MEDS: CALCIUM 600MG + VIT D 400 IU TAB PO SCH (08:13)
[2018-11-10] MEDS: LORATADINE 10 MG TAB PO SCH (08:13)
[2018-11-10] MEDS: ASCORBIC ACID 500 MG TAB PO SCH (08:13)
[2018-11-10] MEDS: HEPARIN SOD 5,000 UNIT/0.5 ML VIAL SQ SCH ×2 (08:14→20:04)
--- NOTE | 2018-11-10 17:05 | Hospitalist Progress Note ---
Date of Service November 10, 2018 Assessment & Plan (1) Seizure: H/O seizure disorder Loss of Consciousness: Likely Seizure DD: Syncope/withdrawal from pain meds CT head: No acute process radiation monitor : no issues --EEG: Abnormal awake and drowsy routine EEG due to mild generalized background slowing suggestive of a non specific encephalopathy. There is no evidence of focal slowing or epileptiform activity. Received IV fluids Fall/Seizure/Aspiration precautions Continue Keppra increased to 1000 mg BID Appreciate Neurology Input Ativan PRN seizures Needs follow up with Neurology upon discharge Plan to discharge to rehab facility when accepted Dysuria/Increased Urinary Frequency: UA not suggestive of UTI monitor (2) Ambulatory dysfunction: Uses walker/Wheelchair at baseline PT/OT (3) Hyponatremia: Mild hyponatremia: Received IV fluids monitor sodium levels (4) Fall: Imaging studies negative for fractures PT/OT Fall precautions Rheumatoid arthritis Continue prednisone COPD Tobacco abuse No signs of exacerbations Nebs PRN Anemia of chronic disease Hb at baseline monitor cbc CKD III Cr at baseline Monitor renal function Restless leg syndrome: Continue ropinirole. DVT Px: Heparin SQ Code Status: DNR only as per my discussion with patient Disposition: Patient willing to rehab facility Plan to discharge to rehab facility when accepted addiction social worker following Family Contact: Christine Beckford: [phone] Subjective Patient is seen and examined at bedside Reports left eye dryness and discomfort Willing to go to rehab facility No other complaints Denies chest pain, dyspnea, dizziness, nausea No other complaints Physical Exam 2 Vital Signs (Past 24 Hours): Last Vital Signs Temp 36.6 C 11/10/18 15:29 Pulse 65 11/10/18 15:29 Resp 20 11/10/18 15:29 BP 121/72 11/10/18 15:29 Pulse Ox 94 11/10/18 15:29 Physical Exam: Physical Exam: Vitals signs as noted above General Appearance:Thin, Frail, no apparent distress, chronic ill appearing Head: normocephalic, Atraumatic Eyes: normal inspection, EOMI, R eye blindness Neck: supple, Trachea midline Respiratory/Chest: Normal breath sounds, CTA Cardiovascular: S1, S2, No murmur Abdomen/GI:Soft, Non tender, Bowel sounds present Extremities/Musculoskelatal:normal inspection, no edema, R hip chronic pain Neurologic/Psych:AAOX3, grossly no focal neurological deficits Skin: normal color, warm Results & Data Laboratory Results Short CBC 11/10/18 Range/Units 06:19 Hgb 10.3 L (12.0-16.0) g/dL Hct 30.3 L (37-47) % BMP 11/10/18 06:19 Sodium 133 L Potassium 4.1 Chloride 102 Carbon Dioxide 27 BUN 21 H Creatinine 0.66 Glucose 90 Calcium 8.9 _ (1) Fall Encounter type: initial encounter Qualified Code(s): W19.XXXA - Unspecified fall, initial encounter
[2018-11-10] MEDS: AMITRIPTYLINE HCL 25 MG TAB PO SCH (20:03)
[2018-11-10] MEDS: ATORVASTATIN 20 MG TAB PO SCH (20:04)
[2018-11-10] MEDS: ROPINIROLE HCL 0.25 MG TABLET PO SCH (20:04)
[2018-11-10] MEDS: LIDOCAINE 5% 1 PATCH TD SCH (20:04)
[2018-11-10] MEDS: predniSONE 5 MG TAB PO SCH (20:04)
[2018-11-11] MEDS: OXYCODONE HCL IR 5 MG TAB (IMMEDIATE RELEASE) PO PRN ×4 (04:09→20:59)
[2018-11-11] MEDS: DOCUSATE SODIUM 100 MG CAP PO SCH ×2 (08:50→21:01)
[2018-11-11] MEDS: MELOXICAM 7.5 MG TAB PO SCH (08:51)
[2018-11-11] MEDS: CALCIUM 600MG + VIT D 400 IU TAB PO SCH (08:51)
[2018-11-11] MEDS: levETIRAcetam 500 MG TAB PO SCH ×2 (08:51→21:03)
[2018-11-11] MEDS: ASCORBIC ACID 500 MG TAB PO SCH (08:51)
[2018-11-11] MEDS: FERROUS GLUCONATE 324 MG TAB PO SCH (08:51)
[2018-11-11] MEDS: LORATADINE 10 MG TAB PO SCH (08:51)
[2018-11-11] MEDS: TIOTROPIUM BROMIDE 5 PUFF/90 MCG INH INH SCH (08:52)
[2018-11-11] MEDS: CYANOCOBALAMIN 500 MCG TABLET (VITAMIN B-12) PO SCH (08:52)
[2018-11-11] MEDS: BACLOFEN 10 MG TAB PO PRN ×3 (08:52→20:59)
[2018-11-11] MEDS: FLUTICASONE PROPIONATE NA SPR 16 GM BTL SCH ×2 (08:53→21:00)
[2018-11-11] MEDS: HEPARIN SOD 5,000 UNIT/0.5 ML VIAL SQ SCH ×2 (08:54→21:08)
[2018-11-11] MEDS: ONDANSETRON INJ 2 MG/ML 2 ML VIAL IV PRN (10:33)
--- NOTE | 2018-11-11 16:35 | Hospitalist Progress Note ---
Date of Service November 11, 2018 Assessment & Plan (1) Seizure: H/O seizure disorder Loss of Consciousness: Likely Seizure DD: Syncope/withdrawal from pain meds CT head: No acute process monitoring engineer : no issues --EEG: Abnormal awake and drowsy routine EEG due to mild generalized background slowing suggestive of a non specific encephalopathy. There is no evidence of focal slowing or epileptiform activity. Received IV fluids Fall/Seizure/Aspiration precautions Continue Keppra increased to 1000 mg BID Appreciate Neurology Input No recurrence of seizure activity Needs follow up with Neurology upon discharge Waiting for rehab facility placement Dysuria/Increased Urinary Frequency: UA not suggestive of UTI monitor (2) Ambulatory dysfunction: Uses walker/Wheelchair at baseline PT/OT (3) Hyponatremia: Mild hyponatremia: Received IV fluids monitor sodium levels (4) Fall: Imaging studies negative for fractures PT/OT Fall precautions Rheumatoid arthritis Continue prednisone COPD Tobacco abuse No signs of exacerbations Nebs PRN Anemia of chronic disease Hb at baseline monitor cbc CKD III Cr at baseline Monitor renal function Restless leg syndrome: Continue ropinirole. DVT Px: Heparin SQ Code Status: DNR only as per my discussion with patient Disposition: Plan to discharge to rehab facility when accepted PT/OT recommends Rehab/SNF long term care social worker following Family Contact: Christine Beckford: [phone] Subjective Patient is seen and examined at bedside Reports left eye dryness and discomfort improved No new complaints Denies chest pain, dyspnea, dizziness, nausea Waiting for rehab placement Physical Exam 2 Vital Signs (Past 24 Hours): Last Vital Signs Temp 37 C 11/11/18 15:53 Pulse 69 11/11/18 15:53 Resp 18 11/11/18 15:53 BP 122/70 11/11/18 15:53 Pulse Ox 93 11/11/18 15:53 Physical Exam: Physical Exam: Vitals signs as noted above General Appearance:Thin, Frail, no apparent distress, chronic ill appearing Head: normocephalic, Atraumatic Eyes: normal inspection, EOMI, R eye blindness Neck: supple, Trachea midline Respiratory/Chest: Normal breath sounds, CTA Cardiovascular: S1, S2, No murmur Abdomen/GI:Soft, Non tender, Bowel sounds present Extremities/Musculoskelatal:normal inspection, no edema, R hip chronic pain Neurologic/Psych:AAOX3, grossly no focal neurological deficits Skin: normal color, warm _ (1) Fall Encounter type: initial encounter Qualified Code(s): W19.XXXA - Unspecified fall, initial encounter
[2018-11-11] MEDS: LIDOCAINE 5% 1 PATCH TD SCH (21:00)
[2018-11-11] MEDS: TROLAMINE SALICYLATE 10% CRM 255 APPLN/85 GM TUBE EXT PRN (21:00)
[2018-11-11] MEDS: predniSONE 5 MG TAB PO SCH (21:01)
[2018-11-11] MEDS: AMITRIPTYLINE HCL 25 MG TAB PO SCH (21:02)
[2018-11-11] MEDS: ATORVASTATIN 20 MG TAB PO SCH (21:02)
[2018-11-11] MEDS: ROPINIROLE HCL 0.25 MG TABLET PO SCH (21:03)
[2018-11-12] MEDS ORDERED: COUGH DROP (SUGAR FREE) LOZ 24 LOZ/1 BOX BUCCAL PRN (00:52)
[2018-11-12] MEDS: OXYCODONE HCL IR 5 MG TAB (IMMEDIATE RELEASE) PO PRN ×4 (03:05→22:43)
[2018-11-12] MEDS: FLUTICASONE PROPIONATE NA SPR 16 GM BTL SCH ×2 (08:30→20:27)
[2018-11-12] MEDS: CALCIUM 600MG + VIT D 400 IU TAB PO SCH (08:31)
[2018-11-12] MEDS: levETIRAcetam 500 MG TAB PO SCH ×2 (08:31→20:25)
[2018-11-12] MEDS: TIOTROPIUM BROMIDE 5 PUFF/90 MCG INH INH SCH (08:31)
[2018-11-12] MEDS: BACLOFEN 10 MG TAB PO PRN ×3 (08:32→23:57)
[2018-11-12] MEDS: ASCORBIC ACID 500 MG TAB PO SCH (08:32)
[2018-11-12] MEDS: LORATADINE 10 MG TAB PO SCH (08:32)
[2018-11-12] MEDS: MELOXICAM 7.5 MG TAB PO SCH (08:32)
[2018-11-12] MEDS: FERROUS GLUCONATE 324 MG TAB PO SCH (08:32)
[2018-11-12] MEDS: DOCUSATE SODIUM 100 MG CAP PO SCH ×2 (08:32→20:27)
[2018-11-12] MEDS: CYANOCOBALAMIN 500 MCG TABLET (VITAMIN B-12) PO SCH (08:32)
[2018-11-12] MEDS: HEPARIN SOD 5,000 UNIT/0.5 ML VIAL SQ SCH ×2 (08:33→20:31)
--- NOTE | 2018-11-12 13:19 | Hospitalist Progress Note ---
Date of Service November 12, 2018 Assessment & Plan (1) Seizure: H/O seizure disorder Loss of Consciousness: Likely Seizure DD: Syncope/withdrawal from pain meds CT head: No acute process youth nutritional monitor : no issues --EEG: Abnormal awake and drowsy routine EEG due to mild generalized background slowing suggestive of a non specific encephalopathy. There is no evidence of focal slowing or epileptiform activity. Received IV fluids Fall/Seizure/Aspiration precautions Continue Keppra increased to 1000 mg BID Appreciate Neurology Input No recurrence of seizure activity Needs follow up with Neurology upon discharge Waiting for rehab facility placement Continue current management Continue PT/OT Dysuria/Increased Urinary Frequency: UA not suggestive of UTI monitor (2) Ambulatory dysfunction: Uses walker/Wheelchair at baseline PT/OT (3) Hyponatremia: Mild hyponatremia: Received IV fluids monitor sodium levels (4) Fall: Imaging studies negative for fractures PT/OT Fall precautions Rheumatoid arthritis Continue chronic prednisone COPD Tobacco abuse No signs of exacerbations Nebs PRN Anemia of chronic disease Hb at baseline monitor cbc CKD III Cr at baseline Monitor renal function Restless leg syndrome: Continue ropinirole. DVT Px: Heparin SQ Code Status: DNR only as per my discussion with patient Disposition: Plan to discharge to rehab facility when accepted PT/OT recommends Rehab/SNF social services counselor following Family Contact: Christine Beckford: [phone] Subjective Patient is seen and examined at bedside Feels tired and has generalized pain No new complaints Denies chest pain, dyspnea, dizziness, nausea Waiting for rehab placement Case management following Physical Exam 2 Vital Signs (Past 24 Hours): Last Vital Signs Temp 36.8 C 11/12/18 12:10 Pulse 62 11/12/18 12:10 Resp 18 11/12/18 12:10 BP 112/69 11/12/18 12:10 Pulse Ox 98 11/12/18 12:10 Physical Exam: Physical Exam: Vitals signs as noted above General Appearance:Thin, Frail, no apparent distress, chronic ill appearing Head: normocephalic, Atraumatic Eyes: normal inspection, EOMI, R eye blindness Neck: supple, Trachea midline Respiratory/Chest: Decreased breath sounds, CTA Cardiovascular: S1, S2, No murmur Abdomen/GI:Soft, Non tender, Bowel sounds present Extremities/Musculoskelatal:normal inspection, no edema, R hip chronic pain Neurologic/Psych:AAOX3, grossly no focal neurological deficits Skin: normal color, warm _ (1) Fall Encounter type: initial encounter Qualified Code(s): W19.XXXA - Unspecified fall, initial encounter
[2018-11-12] MEDS: ROPINIROLE HCL 0.25 MG TABLET PO SCH (20:26)
[2018-11-12] MEDS: ATORVASTATIN 20 MG TAB PO SCH (20:26)
[2018-11-12] MEDS: predniSONE 5 MG TAB PO SCH (20:26)
[2018-11-12] MEDS: AMITRIPTYLINE HCL 25 MG TAB PO SCH (20:27)
[2018-11-12] MEDS: LIDOCAINE 5% 1 PATCH TD SCH (20:28)
[2018-11-12] MEDS: TROLAMINE SALICYLATE 10% CRM 255 APPLN/85 GM TUBE EXT PRN (22:44)
[2018-11-13] MEDS: TROLAMINE SALICYLATE 10% CRM 255 APPLN/85 GM TUBE EXT PRN (01:41)
[2018-11-13] MEDS: OXYCODONE HCL IR 5 MG TAB (IMMEDIATE RELEASE) PO PRN ×3 (03:02→18:00)
[2018-11-13] MEDS: LORATADINE 10 MG TAB PO SCH (07:42)
[2018-11-13] MEDS: CALCIUM 600MG + VIT D 400 IU TAB PO SCH (07:42)
[2018-11-13] MEDS: FERROUS GLUCONATE 324 MG TAB PO SCH (07:43)
[2018-11-13] MEDS: ASCORBIC ACID 500 MG TAB PO SCH (07:43)
[2018-11-13] MEDS: CYANOCOBALAMIN 500 MCG TABLET (VITAMIN B-12) PO SCH (07:43)
[2018-11-13] MEDS: MELOXICAM 7.5 MG TAB PO SCH (07:43)
[2018-11-13] MEDS: TIOTROPIUM BROMIDE 5 PUFF/90 MCG INH INH SCH (07:43)
[2018-11-13] MEDS: levETIRAcetam 500 MG TAB PO SCH (07:43)
[2018-11-13] MEDS: DOCUSATE SODIUM 100 MG CAP PO SCH (07:43)
[2018-11-13] MEDS: HEPARIN SOD 5,000 UNIT/0.5 ML VIAL SQ SCH (07:44)
[2018-11-13] MEDS: FLUTICASONE PROPIONATE NA SPR 16 GM BTL SCH (07:44)
[2018-11-13] MEDS: BACLOFEN 10 MG TAB PO PRN (07:44)
--- NOTE | 2018-11-13 12:10 | Hospitalist Progress Note ---
Date of Service November 13, 2018 Assessment & Plan (1) Seizure: H/O seizure disorder Loss of Consciousness: Likely Seizure DD: Syncope/withdrawal from pain meds CT head: No acute process quality assurance monitor body : no issues --EEG: Abnormal awake and drowsy routine EEG due to mild generalized background slowing suggestive of a non specific encephalopathy. There is no evidence of focal slowing or epileptiform activity. Received IV fluids Fall/Seizure/Aspiration precautions Continue Keppra increased to 1000 mg BID Appreciate Neurology Input No recurrence of seizure activity Needs follow up with Neurology upon discharge Continue PT/OT Planned to be discharged to Rehab facility today Dysuria/Increased Urinary Frequency: UA not suggestive of UTI monitor (2) Ambulatory dysfunction: Uses walker/Wheelchair at baseline PT/OT (3) Hyponatremia: Mild hyponatremia: Received IV fluids monitor sodium levels (4) Fall: Imaging studies negative for fractures PT/OT Fall precautions Rheumatoid arthritis Continue chronic prednisone COPD Tobacco abuse No signs of exacerbations Nebs PRN Anemia of chronic disease Hb at baseline monitor cbc CKD III Cr at baseline Monitor renal function Restless leg syndrome: Continue ropinirole. DVT Px: Heparin SQ Code Status: DNR only as per my discussion with patient Disposition: Plan to discharge to rehab facility today PT/OT recommends Rehab/SNF high school social studies teacher following Family Contact: Christine Beckford: [phone] Subjective Patient is seen and examined at bedside Doing well today No new complaints Chronic generalized pain Planned to be discharged to rehab facility today Denies chest pain, dyspnea, dizziness, nausea Physical Exam 2 Vital Signs (Past 24 Hours): Last Vital Signs Temp 36.9 C 11/13/18 11:31 Pulse 76 11/13/18 11:31 Resp 20 11/13/18 11:31 BP 119/64 11/13/18 11:31 Pulse Ox 92 11/13/18 11:31 Physical Exam: Physical Exam: Vitals signs as noted above General Appearance:Thin, Frail, no apparent distress, chronic ill appearing Head: normocephalic, Atraumatic Eyes: normal inspection, EOMI, R eye blindness Neck: supple, Trachea midline Respiratory/Chest: Decreased breath sounds, CTA Cardiovascular: S1, S2, No murmur Abdomen/GI:Soft, Non tender, Bowel sounds present Extremities/Musculoskelatal:normal inspection, no edema, R hip chronic pain Neurologic/Psych:AAOX3, grossly no focal neurological deficits Skin: normal color, warm _ (1) Fall Encounter type: initial encounter Qualified Code(s): W19.XXXA - Unspecified fall, initial encounter
--- NOTE | 2018-11-13 12:20 | Discharge Summary ---
Date of Service November 13, 2018 Admission HPI Per Admitting Provider Patient is a 78 yr female with PMH of rheumatoid arthritis, COPD, tobacco abuse , epilepsy, anemia of chronic disease, HLD, CKD III, GERD, PVD, anxiety, blind right eye and other problems presents with history of Possible Syncope Vs seizure episode yesterday. Patient is a very poor historian. She states feeling "lousy". She reports falling off of [employer] yesterday and having lost consciousness after the fall. She is unsure of the events after the fall and she lives alone. Prior to fall she reports feeling foggy and "My head was spinning" She reports having frontal and occipital headache since the fall and believes she hit her head at the time. Denies any change in vision. She is also unsure if she had a seizure like episode. Reports chronic vertigo which is worse yesterday. Reports nausea and dysuria associated with increased urinary frequency as well. UA is not suggestive of UTI. CT head showed no acute findings. Also reports chronic right hip pain. Ambulates with walker and uses wheelchair as well at baseline. Reports being complaint with seizure medications. Denies any history of chest pain, dyspnea, cough, fever, chills, change in vision, vomiting, abdominal pain, diarrhea, hematuria, recent change in medications. Admission Exam Per Admitting Provider Physical Exam Vital Signs (Past 24 Hours): Last Vital Signs Temp 36.6 C 11/06/18 13:55 Pulse 63 11/06/18 13:55 Resp 20 11/06/18 13:55 BP 183/67 H 11/06/18 13:55 Pulse Ox 98 11/06/18 13:55 Principal Diagnosis Discharge Information Discharge Diagnosis Seizure Ambulatory dysfunction Hyponatremia Fall Discharge Goals Decrease discomfort,Improve disease control, Improve function Discharge Activity Limitations Resume your previous activity Discharge Data Allergies Allergy/AdvReac Type Severity Reaction Status Date / Time pollen extracts Allergy Mild SEASONAL-ITCHY Verified 07/13/18 14:49 EYES,RUNNY NOSE Dust Allergy Mild ITCHY Uncoded 07/13/18 14:49 EYES,RUNNY NOSE Consultations 11/06/18 15:34 ED Decision to Admit Stat 11/06/18 18:44 Consult Case Management - Discharge Planning Routine Consult Neurology Routine Procedures Performed Neck CT: 1. There is no evidence of fracture or subluxation involving the cervical spine. 2. Osteopenia and spondylotic change as above. 3. Sialolithiasis of the parotid glands. CT heaD: No acute intracranial abnormality. Age-related change. Hip X ray: 1. No acute fracture within the pelvis or hips. 2. Status post proximal right femoral internal fixation. Hardware intact. No acute fracture identified. Lumbar X ray: Considerable degenerative change. Several wedge deformities considered old. No acute process. Thoracic X ray: No fracture or subluxation within the thoracic spine. Ordered Studies 11/06/18 13:03 CT cervical spine wo con Stat CT head/brain wo con Stat Hospital Course (1) Seizure: H/O seizure disorder Loss of Consciousness: Likely Seizure DD: Syncope/withdrawal from pain meds CT head: No acute process gambling monitor : no issues --EEG: Abnormal awake and drowsy routine EEG due to mild generalized background slowing suggestive of a non specific encephalopathy. There is no evidence of focal slowing or epileptiform activity. Received IV fluids Fall/Seizure/Aspiration precautions Continue Keppra increased to 1000 mg BID Appreciate Neurology Input No recurrence of seizure activity Needs follow up with Neurology upon discharge Continue PT/OT Planned to be discharged to Rehab facility today Dysuria/Increased Urinary Frequency: UA not suggestive of UTI monitor (2) Ambulatory dysfunction: Uses walker/Wheelchair at baseline PT/OT (3) Hyponatremia: Mild hyponatremia: Received IV fluids monitor sodium levels (4) Fall: Imaging studies negative for fractures PT/OT Fall precautions Rheumatoid arthritis Continue chronic prednisone COPD Tobacco abuse No signs of exacerbations Nebs PRN Anemia of chronic disease Hb at baseline monitor cbc CKD III Cr at baseline Monitor renal function Restless leg syndrome: Continue ropinirole. DVT Px: Heparin SQ Code Status: DNR only as per my discussion with patient Disposition: Plan to discharge to rehab facility today PT/OT recommends Rehab/SNF social media specialist following Family Contact: Christine : [phone] Total Time Total Time Spent Total Time Spent (In Minutes): 36 minutes Total Time Includes: Examination of the Patient, Discharge Planning, Medication Reconciliation, Communication With Other Providers and Other Discharge Plan Discharge Items Patient Disposition: Transfer Inpatient Rehab Fac Reason For Visit: SYNCOPE VS SEIZURE Discharge Diagnosis: Seizure Ambulatory dysfunction Hyponatremia Fall Discharge Goals: Decrease discomfort, Improve disease control and Improve function Activity: Resume your previous activity Exercise/Sports: Gradually increase as tolerated Non-emergency contact: Primary Care Provider and Neurologist Call non-emergency contact if: you have any medication questions, your symptoms worsen, your pain is not controlled, your pain is worsening, your pain is unusual for you and you have a fever Diet: Heart Healthy Addtl Provider Instructions: Follow up with your PCP in 1 week after being discharged from Rehab facility Follow up with your Neurologist as scheduled Seek immediate medical attention if your symptoms reoccur or worsen Prescriptions: New levetiracetam [Keppra] 500 mg Tablet 1,000 mg PO BID 30 Days Qty: 120 RF: 0 Continue baclofen 10 mg Tablet 10 mg PO TID PRN (Reason: Back Pain) RF: 0 atorvastatin 20 mg tablet 20 mg PO HS RF: 0 prednisone 5 mg tablet 5 mg PO HS RF: 0 cyanocobalamin (vitamin B-12) [Vitamin B-12] 1,000 mcg Tablet 1,000 mcg PO DAILY RF: 0 amitriptyline 25 mg tablet 25 mg PO HS RF: 0 ascorbic acid (vitamin C) 500 mg Tablet 500 mg PO DAILY RF: 0 ropinirole 0.25 mg tablet 0.25 mg PO HS RF: 0 ranitidine HCl 150 mg tablet 150 mg PO BID RF: 0 docusate sodium 100 mg capsule 1 cap PO BID RF: 0 fluticasone 50 mcg/actuation spray,suspension 2 spray Intranasal BID RF: 0 tiotropium bromide 18 mcg capsule, w/inhalation device 1 puff Inhalation DAILY RF: 0 ferrous gluconate 324 mg (37.5 mg iron) Tablet 324 mg PO DAILY RF: 0 Calcium 600 with Vitamin D3 1 tab PO DAILY RF: 0 M.V.I. Adult 1 tab PO DAILY RF: 0 albuterol sulfate [Ventolin HFA] 90 mcg/actuation Hfa Aerosol Inhaler 1 - 2 puff Inhalation Q4 RF: 0 loratadine [Claritin] 10 mg Tablet 10 mg PO DAILY RF: 0 meclizine 12.5 mg tablet 12.5 mg PO TID PRN (Reason: dizziness) Qty: 10 RF: 1 meloxicam 7.5 mg tablet 7.5 mg PO DAILY RF: 0 menthol 5 % Adhesive Patch,Medicated 1 patch TOPICAL DAILY PRN (Reason: Back Pain) RF: 0 guaifenesin 400 mg Tablet 2 tab PO DAILY PRN (Reason: Nasal Congestion) RF: 0 oxycodone 5 mg Tablet 5 mg PO Q4H PRN (Reason: Pain) 2 Days Qty: 4 RF: 0 Discontinued levetiracetam [Keppra] 750 mg Tablet 750 mg PO BID RF: 0 Stand-Alone Forms: [facility] Discharge Orders: Discharge Order (Routine); Ordered 11/13/18 Ordered By: Nehemias Emerson Skilled Items Patient informed of condition?: Yes DNR: No Discharge Level of Care: Acute rehab Communicable Disease: No Discharge Prognosis: Improving Admission Data Admit Date/Time: 11/08/18 12:28 Attending Provider: Charissa Odell Admit Provider: Nehemias Emerson Primary Care Provider: Zakia Galvez Other Providers: Nehemias Emerson ; Hyun Lin Service: Telemetry Other Pending Studies at Discharge: No
== END 2018-11-13 20:00 | DRG 100 ==
LOC: 2N 12:08 → ED 12:08 → 2N 17:36 → SUATTDRO 11-08 12:28

== ENCOUNTER 2019-11-11 15:18 | Inpatient (IN) ==
--- OUTSIDE RECORDS SUMMARY | 2019-11-11 15:22 | External Medical Summary | Continuity of Care Document ---
:1940 Author Name Aubree Mcintosh, Provider Address Unavailable Unavailable , Care Team Providers Name Role Phone Katie Flores PA-C Unavailable [email or web address] [email or web address] DO Unavailable [email or web address] [employer] Unavailable Unavailable Problems Segmental and somatic dysfunction of thoracic region (739.2) (M99.02) Segmental and somatic dysfunction of rib cage (739.8) (M99.0 8) Segmental and somatic dysfunction of lumbar region (739.3) ( M99.03) Segmental and somatic dysfunction of abdomen and other regions (739.9) (M99.09) Sacral region somatic dysfunction (739.4) (M99.04) Pelvic somatic dysfunction (739.5) (M99.05) Cervical somatic dysfunction (739.1) (M99.01) 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 LISA Flores Start: 25-Apr-2017 Quantity: 1 30 Capsule Box Refills: 3 Azulfidine 500 MG Oral Tablet; TAKE 1 TABLET TWICE DAILY. Start: 25-Apr-2017 Refills: 0 Simvastatin 20 MG Oral Tablet; TAKE 1 TABLET AT BEDTIME. Start: 25-Apr-2017 Refills: 0 30 Tablet Bottle Sennosides-Docusate Sodium 8.6-50 MG Ora l Tablet; TAKE 1 TABLET DAILY NEEDED. Start: 25-Apr-2017 Refills: 0 rOPINIRole HCl - 0.25 MG Oral Tablet; TA KE 1 TABLET 1-3 HOURS BEFORE BEDTIME DAILY Start: 25-Apr-2017 Refills: 0 raNITIdine HCl - 150 MG Oral Tablet; TAKE 1 TABLET AT BEDTIM E. Start: 25-Apr-2017 Refills: 0 predniSONE 5 MG Oral Tablet; TAKE 1 TABLET DAILY DIRECTED . Start: 25-Apr-2017 Quantity: 30 Refills: 5 Phenytoin Sodium Extended 100 MG Oral Capsule; take 2 capsul es by mouth daily Start: 25-Apr-2017 Refills: 0 oxyCODONE-Acetaminophen 5-325 MG Oral Ta blet; TAKE 1 TABLET EVERY 4 HOURS NEEDED FOR PAIN. Start: 25-Apr-2017 Refills: 0 Patanol 0.1 % Ophthalmic Solution; USE DIRECTED Start: 25-Apr-2017 Refills: 0 5 ML Bottle Multiple Vitamins Oral Tablet; TAKE 1 TABLET DAILY. Start: 25-Apr-2017 Refills: 0 Icy Hot 5 % External Patch; 1 APPLICATIO N TOPICALLY DAILY NEEDED FOR BACK ACHES Start: 25-Apr-2017 Refills: 0 Meloxicam 7.5 MG Oral Tablet; TAKE 1 TABLET DAILY. Start: 25-Apr-2017 Refills: 0 30 Tablet Bottle Fluticasone Propionate 50 MCG/ACT Nasal Suspension; USE 1 SPRAY IN EACH NOSTRIL ONCE DAILY. Start: 25-Apr-2017 Refills: 0 9.9 ML Bottle Ferrous Sulfate 325 (65 Fe) MG Oral Tablet; TAKE 1 TABLET DA NEENA. Start: 25-Apr-2017 Refills: 0 Docusate Sodium 100 MG Oral Capsule; TAKE 1 CAPSULE TWICE DA NEENA. Start: 25-Apr-2017 Refills: 0 Prolia 60 MG/ML SOLN; INJECT SUBCUTANEOUSLY 60 MG / 1 ML EV HARLEY 6 MONTHS Start: 25-Apr-2017 Refills: 0 Milliliter Vitamin B-12 1000 MCG Oral Tablet; TAKE 1 TABLET DAILY DI RECTED. Start: 25-Apr-2017 Refills: 0 Calcium Carbonate-Vitamin D 600-200 MG-UNIT Oral Capsule; Ta ke 1 tablet daily Start: 25-Apr-2017 Refills: 0 Ascorbic Acid 500 MG Oral Tablet; TAKE 1 TABLET DAILY. Start: 25-Apr-2017 Refills: 0 Amitriptyline HCl - 10 MG Oral Tablet; TAKE 1 TABLET AT BEDT LONNIE. Start: 25-Apr-2017 Refills: 0 Amitriptyline HCl - 25 MG Oral Tablet; TAKE 1 TABLET AT BEDT LONNIE. Start: 25-Apr-2017 Refills: 0 Ventolin HFA 108 (90 Base) MCG/ACT Inhal ation Aerosol Solution; INHALE 2 PUFFS EVERY 6 HOURS NEEDED Start: 25-Apr-2017 Quantity: 3 18 GM Inhaler Refills: 3 Baclofen 10 MG Oral Tablet; TAKE 1/2 TABLET TWICE DAILY BY M OUTH Start: 25-Apr-2017 Refills: 0 Loratadine 10 MG Oral Tablet Refills: 0 Procedures History of appendectomy Status: Complete d History of cataract surgery Status: Comp leted History of laparoscopy Status: Completed History of hysterectomy Status: Complete d History of ovarian cystectomy Status: Co mpleted History of tonsillectomy Status: Complet ed History of tubal ligation Status: Comple pasquale History of hip surgery Status: Completed Immunizations Pneumococcal polysaccharide vaccine, 23 valent On: 15-Nov-19 08 Td (adult), adsorbed tetanus and diphtheria toxoids On: Influenza On: 24-Jul-2016 Family History Sister Family history of diabetes mellitus (V18.0) (Z83.3) Status: Active Brother Family history of diabetes mellitus (V18.0) (Z83.3) Status: Active Social History - Smoking Status Current every day smoker Plan of Treatment Planned Observations Planned Goals not documented Results No Known Results Results not documented Encounters Appointment; Doni John DO 02-Jul-2018 11:00 Encounter Diagnosis: Problem not documented Appointment; Doni John DO 27-May-2018 11:00 Encounter Diagnosis: Problem not documented Appointment; Doni John DO 30-Apr-2018 11:20 Encounter Diagnosis: Problem not documented Appointment; Doni John DO 27-Mar-2018 11:00 Encounter Diagnosis: Problem not documented Appointment; Doni John DO 05-Aug-2018 11:00 Encounter Diagnosis: Problem not documented
[2019-11-11] MEDS ORDERED: ACETAMINOPHEN 325 MG TAB PO STA (15:27)
[2019-11-11] MEDS ORDERED: SODIUM CHLORIDE 0.9% 1000ML 1,000 ML IV SCH (15:30)
--- NOTE | 2019-11-11 16:07 | XRay Report ---
XR chest 1V portable CLINICAL HISTORY: weakness dyspnea COMPARISON STUDY: 09/06/2017 FINDINGS: Mild chronic emphysematous change. Mild chronic basilar interstitial change. No acute focal infiltrate. IMPRESSION: Chronic change. No acute process. ACT 112: Negative or not required by law. The above report was generated using voice recognition software. It may contain grammatical, syntax or spelling errors. Electronically signed by: Dat Drew M.D. 11/11/2019 4:05 PM
--- NOTE | 2019-11-11 16:20 | Electrocardiogram Report ---
Test Reason : Blood Pressure : / mmHG Vent. Rate : 069 BPM Atrial Rate : 069 BPM P-R Int : 152 ms QRS Dur : 088 ms QT Int : 412 ms P-R-T Axes : 073 -30 081 degrees QTc Int : 441 ms Normal sinus rhythm with sinus arrhythmia Left axis deviation Septal infarct , age undetermined Abnormal ECG When compared with ECG of 08-NOV-2018 06:45, Septal infarct is now Present Confirmed by Elvin Jeronimo ([id number]) on 11/11/2019 4:19:42 PM Referred By: Confirmed By:Elvin Jeronimo
--- NOTE | 2019-11-11 17:10 | CT Scan Report ---
CT head/brain wo con CT DOSE: HISTORY: Trauma s/p fall TECHNIQUE: Multiaxial CT images of the head were performed without the use of intravenous contrast. A dose lowering technique was utilized adhering to the principles of ALARA. Comparison: None. Findings: The paranasal sinuses and mastoid air cells are clear. The calvarium and skull base are int act. The ventricles and sulci are within normal limits. There is no mass, hematoma, midline shift, or acute infarct. Impression: No acute intracranial abnormality. ACT 112: Negative or not required by law. The above report was generated using voice recognition software. It may contain grammatical, syntax or spelling errors. Electronically signed by: Dat Drew M.D. 11/11/2019 5:09 PM
--- NOTE | 2019-11-11 17:12 | CT Scan Report ---
CT cervical spine wo con CT DOSE: 870.60 mGy.cm HISTORY: Trauma fall TECHNIQUE: Multiaxial CT images of the cervical spine were performed and reformatted in the sagittal and coronal plane without the use of contrast. A dose lowering technique was utilized adhering to th e principles of ALARA. COMPARISON: None. FINDINGS: No fractures. No subluxation. Prevertebral soft tissues and the C1-C2 interval are intact. No pneumothorax. Generalized degenerative disc change IMPRESSION: No fractures within the cervical spine. Degenerative change ACT 112: Negative or not required by law. The above report was generated using voice recognition software. It may contain grammatical, syntax or spelling errors. Electronically signed by: Dat Drew M.D. 11/11/2019 5:11 PM
[2019-11-11 17:32] LABS: Basophils # (auto) 0.01 K/uL (0-0.2); Basophils % (auto) 0.1 %; Eosinophils # (auto) 0.12 K/uL (0-0.5); Eosinophils % (auto) 1.4 %; Hematocrit (blood only) 33.7 % (37-47); Hemoglobin 11.1 g/dL (12.0-16.0); Immature Granulocytes # (auto) 0.03 K/uL (0.00-0.02); Immature Granulocytes % (auto) 0.4 %; Lymphocytes # (auto) 0.83 K/uL (1.2-3.4); Lymphocytes % (auto) 9.8 %; Mean Corpuscular Hemoglobin 35.6 pg (25-34); Mean Corpuscular Hgb Conc 32.9 g/dL (32-36); Mean Platelet Volume 9.1 fL (7.4-10.4); Monocytes # (auto) 0.46 K/uL (0.11-0.59); Monocytes % (auto) 5.4 %; Neutrophils % (auto) 82.9 %; Platelet Count 148 K/uL (130-400); RDW Coefficient of Variation 15.8 % (11.5-14.5); RDW Standard Deviation 61.8 fL (36.4-46.3); Red Blood Count 3.12 M/uL (4.2-5.4); White Blood Count 8.45 K/uL (4.8-10.8)
[2019-11-11 17:44] LABS: Prothrombin Time 10.7 Seconds (9.0-12.0)
[2019-11-11 17:51] LABS: Alanine Aminotransferase 14 U/L (12-78); Albumin Level 3.5 gm/dl (3.4-5.0); Aspartate Aminotransferase 23 U/L (15-37); BUN Creatinine Ratio 17.4 (10-20); Blood Urea Nitrogen 13 mg/dl (7-18); Calcium 9.3 mg/dl (8.5-10.1); Carbon Dioxide 27 mmol/L (21-32); Chloride 109 mmol/L (98-107); Creatinine Clr Calc Pharmacy 57.3 ml/min; Est GFR (African American) 87.3; Est GFR (Non-African American) 75.3; Glucose 91 mg/dl (70-99); Magnesium 2.1 mg/dl (1.8-2.4); Potassium 3.6 mmol/L (3.5-5.1); Sodium 142 mmol/L (136-145)
[2019-11-11 18:01] LABS: Alkaline Phosphatase 69 U/L (45-117); Bilirubin,Total 0.5 mg/dl (0.2-1); Globulin 3.6 gm/dl (2.5-4.0); Thyroid Stimulating Hormone 0.795 uIu/ml (0.300-4.500); Total Protein 7.1 gm/dl (6.4-8.2); Troponin I < 0.015 ng/ml (0-0.045)
--- NOTE | 2019-11-11 21:24 | History & Physical Report ---
Date of Service November 11, 2019 Assessment & Plan (1) Dizziness: Multifactorial : Acute vertigo Uncontrolled hypertension, possibly chronic given LAD on EKG COPD, pulmonary status at baseline ongoing tobacco abuse, seizure disorder, stable on regimen rheumatoid arthritis on chronic steroid therapy chronic anemia, hemoglobin at baseline Malnutrition (low BMI) OBS Medical telemetry Initiate lisinopril and titrate as needed Symptomatic management for vertigo. PT for possible Genevieve maneuver if patient still symptomatic in a.m. OT eval Nicotine patch PRN Nutrition consult DVT phylaxis. Lovenox subcu Full code History of Present Illness Chief Complaint: Dizziness, falling Primary Care Provider: Zakia Galvez DO History obtained from patient and records. Medical history significant for COPD, ongoing tobacco abuse, hyperlipidemia, seizure disorder, rheumatoid arthritis on chronic steroid therapy, chronic anemia (baseline hemoglobin of 9-10), restless legs syndrome, aspiration risk as per records. Recent confinement November 2018 for breakthrough seizure. Keppra dose increased on discharge. Last 2 days patient complaining of achy headache, dizziness described as spinning, multiple falls without syncope. No chest pain, no S OB. Patient brought to ER by EMS for further evaluation. MEDICAL HISTORY: As above. SURGERIES: Appendectomy, cataract surgery, exploratory laparotomy, hysterectomy, gynecologic procedures, tonsillectomy, hip fracture surgery FAMILY HISTORY: Diabetes. Heart disease, stroke PERSONAL AND SOCIAL HISTORY: One pack daily. No chronic intake of alcohol. 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 Lives alone. Allergies Allergy/AdvReac Type Severity Reaction Status Date / Time pollen extracts Allergy Mild SEASONAL-ITCHY Verified 11/11/19 16:35 EYES,RUNNY NOSE Dust Allergy Mild ITCHY Uncoded 11/11/19 16:35 EYES,RUNNY NOSE Home Medications Home Medications Medication Instructions Recorded Confirmed Type albuterol sulfate [Ventolin HFA] 1 - 2 puff INHALATION Q4 PRN 07/13/18 11/11/19 History amitriptyline 25 mg PO HS 07/13/18 11/11/19 History ascorbic acid (vitamin C) 500 mg PO DAILY 07/13/18 11/11/19 History atorvastatin 20 mg PO HS 07/13/18 11/11/19 History baclofen 10 mg PO TID PRN 07/13/18 11/11/19 History cyanocobalamin (vitamin B-12) 1,000 mcg PO DAILY 07/13/18 11/11/19 History [Vitamin B-12] docusate sodium 1 cap PO BID 07/13/18 11/11/19 History ferrous gluconate 324 mg PO DAILY 07/13/18 11/11/19 History fluticasone propionate 2 spray INTRANASAL BID 07/13/18 11/11/19 History loratadine [Claritin] 10 mg PO DAILY 07/13/18 11/11/19 History prednisone 5 mg PO HS 07/13/18 11/11/19 History ropinirole 0.25 mg PO HS 07/13/18 11/11/19 History tiotropium bromide 1 puff INHALATION DAILY 07/13/18 11/11/19 History meclizine 12.5 mg PO TID PRN #10 tab 07/17/18 11/11/19 Rx guaifenesin 2 tab PO DAILY PRN 11/06/18 11/11/19 History meloxicam 7.5 mg PO DAILY 11/06/18 11/11/19 History menthol 1 patch TOPICAL DAILY PRN 11/06/18 11/11/19 History oxycodone 5 mg PO Q4H PRN 2 Days #4 tab 11/13/18 11/11/19 Rx amitriptyline 10 mg PO HS 11/11/19 11/11/19 History calcium carbonate-vitamin D3 1 tab PO DAILY 11/11/19 11/11/19 History [Calcium 600 + D(3)] famotidine 20 mg PO DAILY 11/11/19 11/11/19 History levetiracetam [Keppra] 1,000 mg PO BID 11/11/19 11/11/19 History multivitamin 1 tab PO DAILY 11/11/19 11/11/19 History ondansetron HCl [Zofran] 4 mg PO Q6H PRN 11/11/19 11/11/19 History Past Med/Surg History Social History Preferred Language: Turkish Communication Ability: Impaired Visual Impairment: Blindness City Planning Aide Required: No Beliefs That Will Affect Care: None marital status: / Current Living Situation: Alone Current Living Situation Comment: in apartment Other Information That Helps Us Care for You: No Feels Safe at Home: Yes Safety Concerns: Feels Safe At This Time Smoking Status: Heavy tobacco smoker Tobacco Type: cigarettes ; Cigarettes Per Day: 20 ; Do You Dip or Chew Tobacco: No ; Second Hand Exposure: Yes ; Tobacco Cessation Education Requested by Patient: No Hx Alcohol Use: No Hx Substance Use: No Review of Systems Review of Systems: As per HPI, all 10 systems reviewed, all other ROS negative Physical Exam Physical Exam: GENERAL: uncomfortable, underweight, no respiratory distress SKIN: Pallor, warm HEENT: Pale palpebral conjunctivae, no ptosis, dry buccal mucosa, contusion right chin/cheek NECK : Supple, no tenderness CHEST : Decreased breath sounds , no tenderness HEART : RRR, no obvious murmurs ABDOMEN: Soft, nontender EXTREMITIES : No LE swelling/tenderness, no other conspicuous deformities noted NEUROLOGIC : Coherent, no facial asymmetry, no other gross focality Results & Data Vital Signs (Past 12 Hours) Vital Signs Temp Pulse Resp BP Pulse Ox 11/11/19 21:00 70 17 145/58 H 94 11/11/19 20:30 73 18 162/70 H 94 11/11/19 20:00 75 179/71 H 94 11/11/19 19:42 87 13 174/61 H 11/11/19 19:30 82 189/68 H 93 11/11/19 19:01 72 20 93 11/11/19 19:00 70 188/72 H 94 11/11/19 18:31 68 11/11/19 18:30 69 191/81 H 11/11/19 18:01 67 14 95 11/11/19 18:00 72 16 195/65 H 94 11/11/19 17:46 81 18 193/78 H 97 11/11/19 16:31 82 10 L 93 11/11/19 16:30 62 14 185/71 H 99 11/11/19 16:29 73 17 162/143 H 100 11/11/19 16:07 71 14 194/75 H 94 11/11/19 16:00 82 17 95 11/11/19 15:36 36.7 C 77 20 176/57 H 96 11/11/19 15:32 78 18 94 11/11/19 15:24 74 19 176/57 H 97 Laboratory Results Laboratory Results WBC 8.45 K/uL (4.8-10.8) 11/11/19 17:15 RBC 3.12 M/uL (4.2-5.4) L 11/11/19 17:15 Hgb 11.1 g/dL (12.0-16.0) L 11/11/19 17:15 Hct 33.7 % (37-47) L 11/11/19 17:15 MCV 108.0 fL (80-100) H 11/11/19 17:15 MCH 35.6 pg (25-34) H 11/11/19 17:15 MCHC 32.9 g/dL (32-36) 11/11/19 17:15 RDW Std Deviation 61.8 fL (36.4-46.3) H 11/11/19 17:15 RDW Coeff of Mandeep 15.8 % (11.5-14.5) H 11/11/19 17:15 Plt Count 148 K/uL (130-400) 11/11/19 17:15 MPV 9.1 fL (7.4-10.4) 11/11/19 17:15 Immature Gran % (Auto) 0.4 % 11/11/19 17:15 Neut % (Auto) 82.9 % 11/11/19 17:15 Lymph % (Auto) 9.8 % 11/11/19 17:15 [place] % (Auto) 5.4 % 11/11/19 17:15 Eos % (Auto) 1.4 % 11/11/19 17:15 Baso % (Auto) 0.1 % 11/11/19 17:15 Immature Gran # (Auto) 0.03 K/uL (0.00-0.02) H 11/11/19 17:15 Neut # (Auto) 7.00 K/uL (1.4-6.5) H 11/11/19 17:15 Lymph # (Auto) 0.83 K/uL (1.2-3.4) L 11/11/19 17:15 [place] # (Auto) 0.46 K/uL (0.11-0.59) 11/11/19 17:15 Eos # (Auto) 0.12 K/uL (0-0.5) 11/11/19 17:15 Baso # (Auto) 0.01 K/uL (0-0.2) 11/11/19 17:15 PT 10.7 Seconds (9.0-12.0) 11/11/19 17:15 INR 1.0 (0.9-1.1) 11/11/19 17:15 Sodium 142 mmol/L (136-145) 11/11/19 17:15 Potassium 3.6 mmol/L (3.5-5.1) 11/11/19 17:15 Chloride 109 mmol/L (98-107) H 11/11/19 17:15 Carbon Dioxide 27 mmol/L (21-32) 11/11/19 17:15 Anion Gap 6.0 (3-11) 11/11/19 17:15 BUN 13 mg/dl (7-18) 11/11/19 17:15 Creatinine 0.75 mg/dl (0.6-1.2) 11/11/19 17:15 Est Cr Clr Drug Dosing 57.3 ml/min 11/11/19 17:15 Est GFR ( Amer) 87.3 11/11/19 17:15 Est GFR (Non-Af Amer) 75.3 11/11/19 17:15 BUN/Creatinine Ratio 17.4 (10-20) 11/11/19 17:15 Glucose 91 mg/dl (70-99) 11/11/19 17:15 Calcium 9.3 mg/dl (8.5-10.1) 11/11/19 17:15 Magnesium 2.1 mg/dl (1.8-2.4) 11/11/19 17:15 Total Bilirubin 0.5 mg/dl (0.2-1) 11/11/19 17:15 AST 23 U/L (15-37) 11/11/19 17:15 ALT 14 U/L (12-78) 11/11/19 17:15 Alkaline Phosphatase 69 U/L (45-117) 11/11/19 17:15 Troponin I < 0.015 ng/ml (0-0.045) 11/11/19 17:15 Total Protein 7.1 gm/dl (6.4-8.2) 11/11/19 17:15 Albumin 3.5 gm/dl (3.4-5.0) 11/11/19 17:15 Globulin 3.6 gm/dl (2.5-4.0) 11/11/19 17:15 Albumin/Globulin Ratio 1.0 (0.9-2) 11/11/19 17:15 TSH 0.795 uIu/ml (0.300-4.500) 11/11/19 17:[address] head: No acute intracranial abnormality CT cervical spine: No fractures; degenerative arthritis MRI brain without contrast: No acute intracranial abnormality. Age-related atrophy and chronic small vessel change Chest x-ray : Chronic change. No acute process. EKG as per my interpretation : Rate 70, NSR, LAD, LAFB, septal infarct, T wave flattening lateral leads
[2019-11-11] MEDS ORDERED: lisinopriL 5 MG TAB PO ONE (21:34)
[2019-11-11] MEDS ORDERED: MECLIZINE 12.5 MG TAB PO PRN (21:37)
--- NOTE | 2019-11-11 22:19 | Emergency Department Note ---
Entered by Charisma Brown acting as a scribe for History of Present Illness General Chief complaint: Fall Stated complaint: WEAKNESS, FALLS, PAIN ALL OVER Time Seen by Provider: 11/11/19 15:19 History of Present Illness Provider complaint: fall Onset (ago): day(s) 1 Pain Consistency: + other (episode) Quality: + other (fall) Associated symptoms: + denies other symptoms (abdominal pain), + nausea/vomiting and + other (legs gave out, fell on belly and hit head, loss of consciouss unknown how long, not eating or drinking well, smoker, elevated BP); no cough and no fever/chills Treatments prior to arrival: other (fluids via EMS) The patient is an 79 year old white female w/ PMHx of rheumatoid arthritis, COPD, seizure disorder, and appendectomy who presents to the ED w/ CC of an e pisode of a fall that occurred 1 day ago. The patient states that she fell because her legs gave out. The patient states that she fell on her belly and hit her head. The patient states that she lost consciousness but does not know how long. The patient states that she hurts all over because of the fall and her rheumatoid arthritis. The patient states that she had constant vomiting last night. The patient notes that she is not eating or drinking well lately and she is a current smoker. The patient denies cough, fever and abdominal pain. Per EMS, the patients blood pressure was high with systolic in the 200s en route. Per EMS, the patient was given fluids. Home Medications Home Medications Medication Instructions Recorded Confirmed Type albuterol sulfate [Ventolin HFA] 1 - 2 puff INHALATION Q4 PRN 07/13/18 11/11/19 History amitriptyline 25 mg PO HS 07/13/18 11/11/19 History ascorbic acid (vitamin C) 500 mg PO DAILY 07/13/18 11/11/19 History atorvastatin 20 mg PO HS 07/13/18 11/11/19 History baclofen 10 mg PO TID PRN 07/13/18 11/11/19 History cyanocobalamin (vitamin B-12) 1,000 mcg PO DAILY 07/13/18 11/11/19 History [Vitamin B-12] docusate sodium 1 cap PO BID 07/13/18 11/11/19 History ferrous gluconate 324 mg PO DAILY 07/13/18 11/11/19 History fluticasone propionate 2 spray INTRANASAL BID 07/13/18 11/11/19 History loratadine [Claritin] 10 mg PO DAILY 07/13/18 11/11/19 History prednisone 5 mg PO HS 07/13/18 11/11/19 History ropinirole 0.25 mg PO HS 07/13/18 11/11/19 History tiotropium bromide 1 puff INHALATION DAILY 07/13/18 11/11/19 History meclizine 12.5 mg PO TID PRN #10 tab 07/17/18 11/11/19 Rx guaifenesin 2 tab PO DAILY PRN 11/06/18 11/11/19 History meloxicam 7.5 mg PO DAILY 11/06/18 11/11/19 History menthol 1 patch TOPICAL DAILY PRN 11/06/18 11/11/19 History oxycodone 5 mg PO Q4H PRN 2 Days #4 tab 11/13/18 11/11/19 Rx amitriptyline 10 mg PO HS 11/11/19 11/11/19 History calcium carbonate-vitamin D3 1 tab PO DAILY 11/11/19 11/11/19 History [Calcium 600 + D(3)] famotidine 20 mg PO DAILY 11/11/19 11/11/19 History levetiracetam [Keppra] 1,000 mg PO BID 11/11/19 11/11/19 History multivitamin 1 tab PO DAILY 11/11/19 11/11/19 History ondansetron HCl [Zofran] 4 mg PO Q6H PRN 11/11/19 11/11/19 History Allergies Allergy/AdvReac Type Severity Reaction Status Date / Time pollen extracts Allergy Mild SEASONAL-ITCHY Verified 11/11/19 16:35 EYES,RUNNY NOSE Dust Allergy Mild ITCHY Uncoded 11/11/19 16:35 EYES,RUNNY NOSE Past Med/Surg History Social History Preferred Language: Luxembourgish Communication Ability: Impaired Visual Impairment: Blindness Toolmaker Required: No Beliefs That Will Affect Care: None marital status: / Current Living Situation: Alone Feels Safe at Home: Yes Smoking Status: Current every day smoker Tobacco Type: cigarettes ; Cigarettes Per Day: 20 ; Second Hand Exposure: Yes ; Hx Alcohol Use: Yes Alcohol type: beer Hx Substance Use: No Review of Systems See HPI for pertinent positives & negatives. and A total of 10 systems reviewed and were otherwise negative Physical Exam Vital Signs Vital Signs - 24 hr 11/11/19 15:24 11/11/19 15:32 11/11/19 15:36 Temperature 36.7 C Temperature Source Oral Pulse Rate 74 78 77 Pulse Rate from SpO2 Sensor 74 77 Respiratory Rate 19 18 20 Blood Pressure 176/57 H 176/57 H Blood Pressure Mean 75 96 Pulse Oximetry 97 94 96 Oxygen Delivery Method Room Air Sepsis Recent Fever Within 48 Hours No Sepsis New/Unexplained Change in Mental Status No Sepsis Action Taken by Nursing No Action Required 11/11/19 16:00 11/11/19 16:07 11/11/19 16:29 Temperature Temperature Source Pulse Rate 82 71 73 Pulse Rate from SpO2 Sensor 80 70 74 Respiratory Rate 17 14 17 Blood Pressure 194/75 H 162/143 H Blood Pressure Mean 111 146 Pulse Oximetry 95 94 100 Oxygen Delivery Method Sepsis Recent Fever Within 48 Hours Sepsis New/Unexplained Change in Mental Status Sepsis Action Taken by Nursing 11/11/19 16:30 11/11/19 16:31 11/11/19 17:46 Temperature Temperature Source Pulse Rate 62 82 81 Pulse Rate from SpO2 Sensor 62 81 81 Respiratory Rate 14 10 L 18 Blood Pressure 185/71 H 193/78 H Blood Pressure Mean 97 107 Pulse Oximetry 99 93 97 Oxygen Delivery Method Sepsis Recent Fever Within 48 Hours Sepsis New/Unexplained Change in Mental Status Sepsis Action Taken by Nursing 11/11/19 18:00 11/11/19 18:01 11/11/19 18:30 Temperature Temperature Source Pulse Rate 72 67 69 Pulse Rate from SpO2 Sensor 70 70 Respiratory Rate 16 14 Blood Pressure 195/65 H 191/81 H Blood Pressure Mean 94 154 Pulse Oximetry 94 95 Oxygen Delivery Method Sepsis Recent Fever Within 48 Hours Sepsis New/Unexplained Change in Mental Status Sepsis Action Taken by Nursing 11/11/19 18:31 11/11/19 19:00 11/11/19 19:01 Temperature Temperature Source Pulse Rate 68 70 72 Pulse Rate from SpO2 Sensor 70 71 Respiratory Rate 20 Blood Pressure 188/72 H Blood Pressure Mean 94 Pulse Oximetry 94 93 Oxygen Delivery Method Sepsis Recent Fever Within 48 Hours Sepsis New/Unexplained Change in Mental Status Sepsis Action Taken by Nursing 11/11/19 19:30 11/11/19 19:42 11/11/19 20:00 Temperature Temperature Source Pulse Rate 82 87 75 Pulse Rate from SpO2 Sensor 82 87 74 Respiratory Rate 13 Blood Pressure 189/68 H 174/61 H 179/71 H Blood Pressure Mean 145 105 134 Pulse Oximetry 93 94 Oxygen Delivery Method Sepsis Recent Fever Within 48 Hours Sepsis New/Unexplained Change in Mental Status Sepsis Action Taken by Nursing 11/11/19 20:30 11/11/19 21:00 11/11/19 21:30 Temperature Temperature Source Pulse Rate 73 70 71 Pulse Rate from SpO2 Sensor 73 65 72 Respiratory Rate 18 17 15 Blood Pressure 162/70 H 145/58 H 179/69 H Blood Pressure Mean 120 100 114 Pulse Oximetry 94 94 95 Oxygen Delivery Method Room Air Room Air Sepsis Recent Fever Within 48 Hours Sepsis New/Unexplained Change in Mental Status Sepsis Action Taken by Nursing 11/11/19 22:00 Temperature Temperature Source Pulse Rate 80 Pulse Rate from SpO2 Sensor Respiratory Rate 14 Blood Pressure 175/72 H Blood Pressure Mean 120 Pulse Oximetry 95 Oxygen Delivery Method Sepsis Recent Fever Within 48 Hours Sepsis New/Unexplained Change in Mental Status Sepsis Action Taken by Nursing GENERAL: Well nourished, non-toxic, thin in appearance. EYE EXAM: Normal conjunctiva. PERRL, no anisocoria and EOM's grossly intact w/o pain. Opacified right cornea, vision in left eye intact. OROPHARYNX: Dry mucous membranes. False teeth in place. NECK: Supple, no nuchal rigidity, no adenopathy, non-tender. No signs of meningismus. No midline c-spine TTP or step-offs. LUNGS: Clear to auscultation. Normal chest wall mechanics. HEART: NSR, no MRG. ABDOMEN: Abdomen soft, non-tender, normo-active bowel sounds, no masses, no rebound or guarding. BACK: No midline thoracic or lumbar TTP or stepoff. No rashes or bruising to the back. No CVA TTP. SKIN: No rashes and no bruising. UPPER EXTREMITIES: Scant bruising on bilateral forearms, no point tenderness or deformity. LOWER EXTREMITIES: No pitting edema. No calf pain. NEURO EXAM: A&O x3, cranial nerves II-XII grossly intact, normal speech, moves all 4 extremities on command w/o issue. Course Course 1521: Past medical records reviewed. The patient was evaluated in room C12B. A complete history and physical exam was performed. 1809: outpatient pharmacy manager is working on placement for the patient. 7: I discussed the patient's case with Dr. Reji Martinez, Hospitalist. He will evaluate the patient for further management. Consultations Consultation #1: I discussed the patient's case with Dr. Reji Martinez, Hospitalist. He will evaluate the patient for further management. Time: 19:37 Administered Medications Discontinued Medications Acetaminophen (Tylenol) 650 mg PO NOW STA Stop: 11/11/19 15:28 Last Admin: 11/11/19 16:33 Dose: Not Given Documented by: [id number] Sodium Chloride (Nss 1000ml) 1,000 mls @ 999 mls/hr IV .Q1H1M YOLANDA Stop: 11/11/19 16:30 Last Infusion: 11/11/19 17:41 Dose: 0 mls/hr Documented by: [id number] Admin: 11/11/19 16:33 Dose: 999 mls/hr Documented by: [id number] Lisinopril (Zestril) 2.5 mg PO NOW STA Stop: 11/11/19 21:08 Last Admin: 11/11/19 21:37 Dose: Not Given Documented by: [id number] Lisinopril (Zestril) Confirm Administered Dose 5 mg PO .STK-MED ONE Stop: 11/11/19 21:35 Last Admin: 11/11/19 21:37 Dose: 2.5 mg Documented by: [id number] Medical Decision Making Differential Diagnosis Differential diagnosis: Etiologies such as metabolic, infection, hypo/hyperglycemia, electrolyte abnormalities, cardiac sources, intracerebral event, toxicologic, neurologic, as well as others were entertained. Medical Records Attestation: I reviewed the patient's medical records. Home Medications Current Medication List: was personally reviewed by me Laboratory Data Attestation: I reviewed the patient's lab results. Result diagrams: 11/11/19 17:15 11/11/19 17:15 Lab Results 11/11/19 11/11/19 11/11/19 Range/Units 17:15 17:15 17:15 WBC 8.45 (4.8-10.8) K/uL RBC 3.12 L (4.2-5.4) M/uL Hgb 11.1 L (12.0-16.0) g/dL Hct 33.7 L (37-47) % MCV 108.0 H (80-100) fL MCH 35.6 H (25-34) pg MCHC 32.9 (32-36) g/dL RDW Std Deviation 61.8 H (36.4-46.3) fL RDW Coeff of Mandeep 15.8 H (11.5-14.5) % Plt Count 148 (130-400) K/uL MPV 9.1 (7.4-10.4) fL Immature Gran % (Auto) 0.4 % Neut % (Auto) 82.9 % Lymph % (Auto) 9.8 % Cecil % (Auto) 5.4 % Eos % (Auto) 1.4 % Baso % (Auto) 0.1 % Immature Gran # (Auto) 0.03 H (0.00-0.02) K/uL Neut # (Auto) 7.00 H (1.4-6.5) K/uL Lymph # (Auto) 0.83 L (1.2-3.4) K/uL Cecil # (Auto) 0.46 (0.11-0.59) K/uL Eos # (Auto) 0.12 (0-0.5) K/uL Baso # (Auto) 0.01 (0-0.2) K/uL PT 10.7 (9.0-12.0) Seconds INR 1.0 (0.9-1.1) Sodium 142 (136-145) mmol/L Potassium 3.6 (3.5-5.1) mmol/L Chloride 109 H (98-107) mmol/L Carbon Dioxide 27 (21-32) mmol/L Anion Gap 6.0 (3-11) BUN 13 (7-18) mg/dl Creatinine 0.75 (0.6-1.2) mg/dl Est Cr Clr Drug Dosing 57.3 ml/min Est GFR ( Amer) 87.3 Est GFR (Non-Af Amer) 75.3 BUN/Creatinine Ratio 17.4 (10-20) Glucose 91 (70-99) mg/dl Calcium 9.3 (8.5-10.1) mg/dl Magnesium 2.1 (1.8-2.4) mg/dl Total Bilirubin 0.5 (0.2-1) mg/dl AST 23 (15-37) U/L ALT 14 (12-78) U/L Alkaline Phosphatase 69 (45-117) U/L Troponin I < 0.015 (0-0.045) ng/ml Total Protein 7.1 (6.4-8.2) gm/dl Albumin 3.5 (3.4-5.0) gm/dl Globulin 3.6 (2.5-4.0) gm/dl Albumin/Globulin Ratio 1.0 (0.9-2) TSH 0.795 (0.300-4.500) uIu/ml Imaging Data Radiologist's Impression: Radiology results as stated below per my review and the radiologist's interpretation: CT head/brain wo con CT DOSE: HISTORY: Trauma s/p fall TECHNIQUE: Multiaxial CT images of the head were performed without the use of intravenous contrast. A dose lowering technique was utilized adhering to the principles of ALARA. Comparison: None. Findings: The paranasal sinuses and mastoid air cells are clear. The calvarium and skull base are intact. The ventricles and sulci are within normal limits. There is no mass, hematoma, midline shift, or acute infarct. Impression: No acute intracranial abnormality. ACT 112: Negative or not required by law. The above report was generated using voice recognition software. It may contain grammatical, syntax or spelling errors. Electronically signed by: Dat Drew M.D. 11/11/2019 5:[address] cervical spine wo con CT DOSE: 870.60 mGy.cm HISTORY: Trauma fall TECHNIQUE: Multiaxial CT images of the cervical spine were performed and reformatted in the sagittal and coronal plane without the use of contrast. A dose lowering technique was utilized adhering to the principles of ALARA. COMPARISON: None. FINDINGS: No fractures. No subluxation. Prevertebral soft tissues and the C1-C2 interval are intact. No pneumothorax. Generalized degenerative disc change IMPRESSION: No fractures within the cervical spine. Degenerative change ACT 112: Negative or not required by law. The above report was generated using voice recognition software. It may contain grammatical, syntax or spelling errors. Electronically signed by: Dat Drew M.D. 11/11/2019 5:11 PM XR chest 1V portable CLINICAL HISTORY: weakness dyspnea COMPARISON STUDY: 09/06/2017 FINDINGS: Mild chronic emphysematous change. Mild chronic basilar interstitial change. No acute focal infiltrate. IMPRESSION: Chronic change. No acute process. ACT 112: Negative or not required by law. The above report was generated using voice recognition software. It may contain grammatical, syntax or spelling errors. Electronically signed by: Dat Drew M.D. 11/11/2019 4:05 PM ECG Data Attestation: I personally reviewed and interpreted this ECG as follows: Indication: + other (fall) Rate (beats per minute): 69 Rhythm: + normal sinus ECG Intervals/blocks: + Normal QRS, + Normal RI and + Normal QT-c ECG [place]: + Left axis deviation ECG ST segments: no ST depression and no ST elevation ECG Findings: + Q waves (anterior) Comparison ECG Date: from (11/08/2018) Change: the following changes noted (Q waves are now more pronounced) Blood Pressure Blood Pressure Findings: Elevated blood pressure Blood Pressure Disposition: further management by hospitalist MDM Narrative The patient is an 79 year old white female w/ PMHx of rheumatoid arthritis, COPD, seizure disorder, and appendectomy who presents to the ED w/ CC of an episode of a fall that occurred 1 day ago. Patient was seen and evaluated the bedside. The patient did have a reported fall at home. The patient does live by herself he does suffer from RA. The patient does not have any obvious focal point tenderness that is not attributable to her rheumatoid on exam. No obvious deformities. The patient did have a screening chest film along with CT of the head and cervical spine. Blood was obtained along with an EKG. The patient does have dry mucous membranes and was given IV fluids as the patient has had poor appetite and p.o. intake and is likely dehydrated. The patient did not have any acute medical issues but after further discussion with the patient's family per casework specialist as well as possible placement this was something the family was unable to facilitate at this time and they do not believe that they be able to care for at home. Furthermore, per case management patient was able to be placed at this time. Given this I did speak the on-call hospitalist agreed to further evaluate patient in order to help facilitate further placement. Impression & Plan Fall, Dehydration, Weakness Discharge Plan Visit Data Chief Complaint: Fall Stated Complaint: WEAKNESS, FALLS, PAIN ALL OVER ED Provider: Tyrese Martinez Discharge Problem: Fall, Dehydration, Weakness Patient Disposition: Being Evaluated by Hospitalist Discharge Instructions Interventions: ED Discharge Assessment Last Done: 11/11/19 22:02 Forms Stand Alone Forms: [facility] Prescriptions Prescriptions: No Action multivitamin Tablet 1 tab PO DAILY RF: 0 ondansetron HCl [Zofran] 4 mg Tablet 4 mg PO Q6H PRN (Reason: Nausea) RF: 0 famotidine 20 mg tablet 20 mg PO DAILY RF: 0 amitriptyline 10 mg tablet 10 mg PO HS RF: 0 levetiracetam [Keppra] 1,000 mg tablet 1,000 mg PO BID RF: 0 calcium carbonate-vitamin D3 [Calcium 600 + D(3)] 600 mg(1,500mg) -400 unit T ablet 1 tab PO DAILY RF: 0 baclofen 10 mg Tablet 10 mg PO TID PRN (Reason: Back Pain) RF: 0 atorvastatin 20 mg tablet 20 mg PO HS RF: 0 prednisone 5 mg tablet 5 mg PO HS RF: 0 cyanocobalamin (vitamin B-12) [Vitamin B-12] 1,000 mcg Tablet 1,000 mcg PO DAILY RF: 0 amitriptyline 25 mg tablet 25 mg PO HS RF: 0 ascorbic acid (vitamin C) 500 mg Tablet 500 mg PO DAILY RF: 0 ropinirole 0.25 mg tablet 0.25 mg PO HS RF: 0 docusate sodium 100 mg capsule 1 cap PO BID RF: 0 fluticasone propionate 50 mcg/actuation spray,suspension 2 spray Intranasal BID RF: 0 tiotropium bromide 18 mcg capsule, w/inhalation device 1 puff Inhalation DAILY RF: 0 ferrous gluconate 324 mg (37.5 mg iron) Tablet 324 mg PO DAILY RF: 0 albuterol sulfate [Ventolin HFA] 90 mcg/actuation Hfa Aerosol Inhaler 1 - 2 puff Inhalation Q4 PRN (Reason: Shortness Of Breath Or Wheezing) RF: 0 loratadine [Claritin] 10 mg Tablet 10 mg PO DAILY RF: 0 meclizine 12.5 mg tablet 12.5 mg PO TID PRN (Reason: dizziness) Qty: 10 RF: 1 meloxicam 7.5 mg tablet 7.5 mg PO DAILY RF: 0 menthol 5 % Adhesive Patch,Medicated 1 patch TOPICAL DAILY PRN (Reason: Back Pain) RF: 0 guaifenesin 400 mg Tablet 2 tab PO DAILY PRN (Reason: Nasal Congestion) RF: 0 oxycodone 5 mg Tablet 5 mg PO Q4H PRN (Reason: Pain) 2 Days Qty: 4 RF: 0 Referrals Referrals: Zakia Galvez DO [Primary Care Provider] - Discharge Problem: Fall Qualifiers: Encounter type: initial encounter Qualified Code(s): W19.XXXA - Unspecified fall, initial encounter The scribe's documentation has been prepared under my direction and personally reviewed by me in its entirety. I confirm that the note above accurately reflects all work, treatment, procedures, and medical decision making performed by me.
--- NOTE | 2019-11-11 22:31 | Magnetic Resonance Report ---
MR angio head wo con HISTORY: Mental status change vertigo TECHNIQUE: 3-D [id number] MRA of the brain was performed without contrast. COMPARISON STUDY: None. FINDINGS: Visualized intracranial internal carotid arteries, distal vertebral arteries, and basilar a rtery are widely patent. There is no significant stenosis, occlusion, or aneurysm seen within the jim ateral ACAs, MCAs, or emr analyst. IMPRESSION: No significant stenosis, occlusion, or aneurysm within the pilot station of [place]. ACT 112: Negative or not required by law. The above report was generated using voice recognition software. It may contain grammatical, syntax or spelling errors. Electronically signed by: Dat Drew M.D. 11/11/2019 10:30 PM
--- NOTE | 2019-11-11 22:49 | Magnetic Resonance Report ---
MR brain wo con HISTORY: Mental status change vertigo TECHNIQUE: Multiplanar multisequence MRI of the brain was performed without the use of contrast. COMPARISON STUDY: None. FINDINGS: There are no areas of restricted diffusion to suggest acute infarction. The midline structu res are intact. The paranasal sinuses are clear. The mastoid air cells are clear. The ventricles and sulci are within normal limits for age. There is no mass, hematoma, midline shift. The major vascular flow-voids at the skull base are well maintained. IMPRESSION: No acute intracranial abnormality. Age-related atrophy and chronic small vessel change ACT 112: Negative or not required by law. The above report was generated using voice recognition software. It may contain grammatical, syntax or spelling errors. Electronically signed by: Dat Drew M.D. 11/11/2019 10:48 PM
[2019-11-11] MEDS ORDERED: ACETAMINOPHEN 325 MG TAB PO PRN (23:04)
[2019-11-11] MEDS ORDERED: NITROGLYCERIN SL 0.4 MG/TAB TAB SL PRN (23:04)
[2019-11-11] MEDS ORDERED: NSS + 20MEQ KCL 20 MEQ/1,000 ML BAG IV ONE (23:04)
[2019-11-11] MEDS ORDERED: OXYCODONE IR HOME PACK PO PRN (23:04)
[2019-11-12 00:08] LABS: Creatine Kinase 243 U/L (26-192)
[2019-11-12] MEDS: OXYCODONE HCL IR 5 MG TAB (IMMEDIATE RELEASE) PO PRN ×3 (00:17→18:51)
[2019-11-12] MEDS: HEPARIN SOD 5,000 UNIT/0.5 ML VIAL SQ SCH ×3 (06:02→22:43)
[2019-11-12 07:51] LABS: Basophils # (auto) 0.01 K/uL (0-0.2); Basophils % (auto) 0.2 %; Eosinophils # (auto) 0.12 K/uL (0-0.5); Eosinophils % (auto) 2.1 %; Hematocrit (blood only) 32.7 % (37-47); Immature Granulocytes # (auto) 0.02 K/uL (0.00-0.02); Immature Granulocytes % (auto) 0.3 %; Lymphocytes # (auto) 0.88 K/uL (1.2-3.4); Lymphocytes % (auto) 15.3 %; Mean Corpuscular Hemoglobin 36.4 pg (25-34); Mean Corpuscular Hgb Conc 33.6 g/dL (32-36); Mean Corpuscular Volume 108.3 fL (80-100); Mean Platelet Volume 9.1 fL (7.4-10.4); Monocytes # (auto) 0.31 K/uL (0.11-0.59); Monocytes % (auto) 5.4 %; Neutrophils # (auto) 4.42 K/uL (1.4-6.5); Neutrophils % (auto) 76.7 %; Platelet Count 170 K/uL (130-400); RDW Coefficient of Variation 15.7 % (11.5-14.5); Red Blood Count 3.02 M/uL (4.2-5.4); White Blood Count 5.76 K/uL (4.8-10.8)
[2019-11-12 08:23] LABS: BUN Creatinine Ratio 16.6 (10-20); Creatinine Clr Calc Pharmacy 42.7 ml/min; Est GFR (African American) 98.2; Est GFR (Non-African American) 84.7; Potassium 3.3 mmol/L (3.5-5.1)
[2019-11-12] MEDS: FLUTICASONE PROPIONATE NA SPR 16 GM BTL SCH ×2 (08:40→20:12)
[2019-11-12] MEDS: LORATADINE 10 MG TAB PO SCH (08:40)
[2019-11-12] MEDS: MELOXICAM 7.5 MG TAB PO SCH (08:40)
[2019-11-12] MEDS: TIOTROPIUM BROMIDE 5 PUFF/90 MCG INH INH SCH (08:40)
[2019-11-12] MEDS: FAMOTIDINE 20 MG TAB PO SCH (08:40)
[2019-11-12] MEDS: levETIRAcetam 500 MG TAB PO SCH ×2 (08:40→20:12)
[2019-11-12] MEDS: MULTIVITAMIN TAB PO SCH (08:40)
[2019-11-12] MEDS: FERROUS GLUCONATE 324 MG TAB PO SCH (08:40)
[2019-11-12] MEDS: BACLOFEN 10 MG TAB PO PRN (15:38)
[2019-11-12 19:05] LABS: Appearance Urine Cloudy (Clear); Bacteria Urine Automated Negative (Negative); Bilirubin Urine Negative (Negative); Blood Urine Trace (Negative); Cast Urine Automated 0 /lpf (0-5); Color Urine Yellow; Epithelial Cell Urine Auto >30 /lpf (0-5); Glucose Urine UA Negative (Negative); Ketones Urine Negative (Negative); Leukocyte Esterase Urine Negative (Negative); Nitrite Urine Negative (Negative); Protein Urine Negative (Negative); Specific Gravity Urine 1.012 (1.000-1.030); Urobilinogen Urine Negative (Negative)
[2019-11-12 19:24] LABS: Amphetamines+Metham, Urine Neg (Neg); Barbiturates, Urine Neg (Neg); Benzodiazepine, Urine Neg (Neg); Cocaine, Urine Neg (Neg); MDMA (Ecstacy), Urine Neg (Neg); Methadone, Urine Neg (Neg); Opiate, Urine Neg (Neg); Phencyclidine, Urine Neg (Neg)
[2019-11-12] MEDS: LIDOCAINE 2% JELLY 5 ML TUBE EXT SCH (20:13)
[2019-11-12] MEDS: predniSONE 5 MG TAB PO SCH (20:14)
[2019-11-12] MEDS: ATORVASTATIN 20 MG TAB PO SCH (20:14)
[2019-11-12] MEDS: AMITRIPTYLINE HCL 10 MG TAB PO SCH (20:14)
[2019-11-12] MEDS: ROPINIROLE HCL 0.25 MG TABLET PO SCH (20:14)
[2019-11-13] MEDS: OXYCODONE HCL IR 5 MG TAB (IMMEDIATE RELEASE) PO PRN ×5 (00:02→23:25)
[2019-11-13] MEDS: HEPARIN SOD 5,000 UNIT/0.5 ML VIAL SQ SCH ×2 (05:40→13:29)
--- NOTE | 2019-11-13 07:18 | Hospitalist Progress Note ---
Date of Service November 12, 2019 Assessment & Plan (1) Dizziness: Multifactorial : Uncontrolled hypertension, possibly chronic given LAD on EKG Hx of vomiting, poss. electrolyte imbalance, dehydration Pt denies any syncopal episodes CT head,neck-negative, Brain MRI / MRA - negative CXR- negat. UA -negative Urine tox- negative - clinically improved today, says she feels much better now, denies any vertigo - nausea/vomit. resolved - continue supportive care - replete electrolytes as needed - cont. to monitor on medical telemetry - lisinopril started for BP control, titrate as needed If pt cont./recurrence of vertigo/dizziness - PT for possible Genevieve maneuver - symptomatic management for vertigo Progressing ambulatory dysfunction - PT/OT eval - pt will need SNF/ inpt rehab, need for psychiatry consult as pt identified as possible target Hypokalemia - replete and monitor COPD - pulmonary status at baseline Seizure disorder - seems stable on current regimen Rheumatoid arthritis - on chronic steroid therapy Chronic anemia -hemoglobin at baseline - cont. to monitor Current tobacco use Nicotine patch PRN Malnutrition - BMI of 17 - Nutrition consult DVT ppx: Lovenox subcu Full code Subjective Pt is laying in bed, in NAD, says she feels much better now. Prior to coming to the hospital, she had episodes of vomiting, feeling extremely weak and dizzy, had several falls. She also has a complicated social situation, being evicted from her apartment because she continues to smoke in there. Currently denies fever, chills, chest pain, shortness of breath, abd. pain, nausea or vomiting. Review of Systems Review of Systems: All systems reviewed & are unremarkable except as noted in HPI & below Constitutional: + fatigue and + weakness; no fever and no chills Respiratory: no cough and no dyspnea Cardiovascular: no chest pain, no palpitations and no edema Gastrointestinal: no abdominal pain, no nausea and no vomiting Physical Exam Physical Exam: GENERAL: thin elderly female, chronically ill appearing, in no acute distress HEENT: R eye blindness, dry buccal mucosa, contusion right chin/cheek NECK : Supple, no tenderness CHEST : Clear to auscultation b/l, decreased breath sounds,no wheezing, rhonchi , crackles no tenderness HEART : RRR, no obvious murmurs ABDOMEN: + bowel sounds, soft, nontender, nondistended, no guarding EXTREMITIES: No LE swelling/tenderness, no other conspicuous deformities noted SKIN: warm, dry, pale NEUROLOGIC : alert and oriented x3, speech fluent, no facial droop, moves extremities spontaneously Results & Data Vital Signs (Past 12 Hours) Vital Signs Temp Pulse Pulse Resp BP Pulse Ox 11/13/19 04:00 37.1 C 80 18 144/66 H 91 11/12/19 23:55 77 11/12/19 23:35 37.3 C 81 20 189/72 H 92 Laboratory Results 11/12/19 11/12/19 11/12/19 Range/Units 18:46 18:46 07:21 WBC (4.8-10.8) K/uL RBC (4.2-5.4) M/uL Hgb (12.0-16.0) g/dL Hct (37-47) % MCV (80-100) fL MCH (25-34) pg MCHC (32-36) g/dL RDW Std Deviation (36.4-46.3) fL RDW Coeff of Mandeep (11.5-14.5) % Plt Count (130-400) K/uL MPV (7.4-10.4) fL Immature Gran % (Auto) % Neut % (Auto) % Lymph % (Auto) % [place] % (Auto) % Eos % (Auto) % Baso % (Auto) % Immature Gran # (Auto) (0.00-0.02) K/uL Neut # (Auto) (1.4-6.5) K/uL Lymph # (Auto) (1.2-3.4) K/uL [place] # (Auto) (0.11-0.59) K/uL Eos # (Auto) (0-0.5) K/uL Baso # (Auto) (0-0.2) K/uL Sodium 140 (136-145) mmol/L Potassium 3.3 L (3.5-5.1) mmol/L Chloride 109 H (98-107) mmol/L Carbon Dioxide 25 (21-32) mmol/L Anion Gap 6.0 (3-11) BUN 11 (7-18) mg/dl Creatinine 0.63 (0.6-1.2) mg/dl Est Cr Clr Drug Dosing 42.7 ml/min Est GFR ( Amer) 98.2 Est GFR (Non-Af Amer) 84.7 BUN/Creatinine Ratio 16.6 (10-20) Glucose 74 (70-99) mg/dl Calcium 9.0 (8.5-10.1) mg/dl Urine Color Yellow Urine Appearance Cloudy A (Clear) Urine pH 7.0 (4.5-7.5) Ur Specific [place] 1.012 (1.000-1.030) Urine Protein Negative (Negative) Urine Glucose (UA) Negative (Negative) Urine Ketones Negative (Negative) Urine Blood Trace H (Negative) Urine Nitrite Negative (Negative) Urine Bilirubin Negative (Negative) Urine Urobilinogen Negative (Negative) Ur Leukocyte Esterase Negative (Negative) Urine WBC (Auto) 1-5 (0-5) /hpf Urine RBC (Auto) 5-10 H (0-4) /hpf U Hyaline Cast (Auto) 0 (0-5) /lpf U Epithel Cells (Auto) >30 H (0-5) /lpf Urine Bacteria (Auto) Negative (Negative) Urine Opiates Screen Neg (Neg) Ur Methadone, Qual Neg (Neg) Urine Barbiturates Neg (Neg) Ur Phencyclidine (PCP) Neg (Neg) U Amphetamin/Meth Scrn Neg (Neg) MDMA (Ecstasy) Screen Neg (Neg) U Benzodiazepines Scrn Neg (Neg) Ur Cocaine Metabolite Neg (Neg) U Marijuana (THC) Screen Neg (Neg) 11/12/19 Range/Units 07:21 WBC 5.76 (4.8-10.8) K/uL RBC 3.02 L (4.2-5.4) M/uL Hgb 11.0 L (12.0-16.0) g/dL Hct 32.7 L (37-47) % MCV 108.3 H (80-100) fL MCH 36.4 H (25-34) pg MCHC 33.6 (32-36) g/dL RDW Std Deviation 61.0 H (36.4-46.3) fL RDW Coeff of Mandeep 15.7 H (11.5-14.5) % Plt Count 170 (130-400) K/uL MPV 9.1 (7.4-10.4) fL Immature Gran % (Auto) 0.3 % Neut % (Auto) 76.7 % Lymph % (Auto) 15.3 % [place]ke % (Auto) 5.4 % Eos % (Auto) 2.1 % Baso % (Auto) 0.2 % Immature Gran # (Auto) 0.02 (0.00-0.02) K/uL Neut # (Auto) 4.42 (1.4-6.5) K/uL Lymph # (Auto) 0.88 L (1.2-3.4) K/uL [place] # (Auto) 0.31 (0.11-0.59) K/uL Eos # (Auto) 0.12 (0-0.5) K/uL Baso # (Auto) 0.01 (0-0.2) K/uL Sodium (136-145) mmol/L Potassium (3.5-5.1) mmol/L Chloride (98-107) mmol/L Carbon Dioxide (21-32) mmol/L Anion Gap (3-11) BUN (7-18) mg/dl Creatinine (0.6-1.2) mg/dl Est Cr Clr Drug Dosing ml/min Est GFR ( Amer) Est GFR (Non-Af Amer) BUN/Creatinine Ratio (10-20) Glucose (70-99) mg/dl Calcium (8.5-10.1) mg/dl Urine Color Urine Appearance (Clear) Urine pH (4.5-7.5) Ur Specific [place] (1.000-1.030) Urine Protein (Negative) Urine Glucose (UA) (Negative) Urine Ketones (Negative) Urine Blood (Negative) Urine Nitrite (Negative) Urine Bilirubin (Negative) Urine Urobilinogen (Negative) Ur Leukocyte Esterase (Negative) Urine WBC (Auto) (0-5) /hpf Urine RBC (Auto) (0-4) /hpf U Hyaline Cast (Auto) (0-5) /lpf U Epithel Cells (Auto) (0-5) /lpf Urine Bacteria (Auto) (Negative) Urine Opiates Screen (Neg) Ur Methadone, Qual (Neg) Urine Barbiturates (Neg) Ur Phencyclidine (PCP) (Neg) U Amphetamin/Meth Scrn (Neg) MDMA (Ecstasy) Screen (Neg) U Benzodiazepines Scrn (Neg) Ur Cocaine Metabolite (Neg) U Marijuana (THC) Screen (Neg)
--- NOTE | 2019-11-13 07:20 | Hospitalist Progress Note ---
Date of Service November 13, 2019 Assessment & Plan (1) Dizziness: Likely multifactorial : Uncontrolled hypertension, possibly chronic given LAD on EKG Hx of vomiting, poss. electrolyte imbalance, dehydration Pt denies any syncopal episodes CT head,neck-negative, Brain MRI / MRA - negative CXR- negat. UA -negative Urine tox- negative - clinically improved today, says she feels much better now, denies any vertigo - nausea/vomit. resolved - continue supportive care - replete electrolytes as needed - cont. to monitor on medical telemetry - lisinopril started for BP control, titrate as needed If pt cont./recurrence of vertigo/dizziness - PT for possible Genevieve maneuver - symptomatic management for vertigo Progressing ambulatory dysfunction - PT/OT eval - pt will need SNF/ inpt rehab, need for psychiatry consult as pt identified as possible target Hypokalemia - replete and monitor - goal K~4 - check Magnesium, goal Mg~2 COPD - pulmonary status at baseline Seizure disorder - seems stable on current regimen Rheumatoid arthritis - on chronic steroid therapy Chronic anemia -hemoglobin at baseline - cont. to monitor Current tobacco use Nicotine patch PRN Malnutrition - BMI of 17 - Nutrition consult DVT ppx: Lovenox subcu Full code Subjective Pt is laying in bed, in NAD, says she feels much better now. She is inquiring about her ophthalmic drops. She does not know the name of it though. She has artificial tears placed on her table but says she was using poss. rx drops - will have pharmacy to help me investigate further. Currently denies fever, chills, chest pain, shortness of breath, abd. pain, nausea or vomiting. Prior to coming to the hospital, she had episodes of vomiting, feeling extremely weak and dizzy, had several falls. She also has a complicated social situation, being evicted from her apartment (pt says it's because she continues to smoke in there). Review of Systems Review of Systems: All systems reviewed & are unremarkable except as noted in HPI & below As per HPI, all 10 systems reviewed, all other ROS negative Constitutional: + fatigue (improved) and + weakness; no fever and no chills 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) Respiratory: no cough, no dyspnea and no pain on inspiration Cardiovascular: no chest pain, no palpitations and no edema Gastrointestinal: no abdominal pain, no nausea and no vomiting Physical Exam Physical Exam: GENERAL: thin elderly female, chronically ill appearing, in no acute distress HEENT: R eye blindness, dry buccal mucosa, contusion right chin/cheek NECK : Supple, no tenderness CHEST : Clear to auscultation b/l, decreased breath sounds,no wheezing, rhonchi , crackles no tenderness HEART : RRR, no obvious murmurs ABDOMEN: + bowel sounds, soft, nontender, nondistended, no guarding EXTREMITIES: No LE swelling/tenderness, no other conspicuous deformities noted SKIN: warm, dry, pale NEUROLOGIC : alert and oriented x3, speech fluent, no facial droop, moves extremities spontaneously Results & Data Vital Signs (Past 12 Hours) Vital Signs Temp Pulse Pulse Resp BP Pulse Ox 11/13/19 04:00 37.1 C 80 18 144/66 H 91 11/12/19 23:55 77 11/12/19 23:35 37.3 C 81 20 189/72 H 92 Laboratory Results 11/13/19 Range/Units 07:31 Sodium 136 (136-145) mmol/L Potassium 3.5 (3.5-5.1) mmol/L Chloride 106 (98-107) mmol/L Carbon Dioxide 24 (21-32) mmol/L Anion Gap 6.0 (3-11) BUN 7 (7-18) mg/dl Creatinine 0.65 (0.6-1.2) mg/dl Est Cr Clr Drug Dosing 43.2 ml/min Est GFR ( Amer) 97.2 Est GFR (Non-Af Amer) 83.9 BUN/Creatinine Ratio 10.6 (10-20) Glucose 105 H (70-99) mg/dl Calcium 8.6 (8.5-10.1) mg/dl Magnesium 1.8 (1.8-2.4) mg/dl Medications Administered Current Inpatient Medications Acetaminophen (Tylenol) 650 mg PO Q4H PRN PRN Reason: Pain or Fever Stop: 12/11/19 23:03 Amitriptyline HCl (Elavil) 35 mg PO [facility] Stop: 12/12/19 20:59 Last Admin: 11/13/19 20:22 Dose: 35 mg Documented by: Atorvastatin Calcium (Lipitor) 20 mg PO [facility] Stop: 12/12/19 20:59 Last Admin: 11/13/19 20:21 Dose: 20 mg Documented by: Baclofen (Lioresal) 10 mg PO TID PRN PRN Reason: Back Pain Stop: 12/11/19 23:03 Last Admin: 11/13/19 22:22 Dose: 10 mg Documented by: Famotidine (Pepcid) 20 mg PO DAILY [facility] Stop: 12/12/19 08:59 Last Admin: 11/13/19 08:06 Dose: 20 mg Documented by: Famotidine (Pepcid) 10 mg PO BID [facility] Stop: 12/13/19 21:59 Ferrous Gluconate (Ferrous Gluconate) 324 mg PO DAILY [facility] Stop: 12/12/19 08:59 Last Admin: 11/13/19 08:06 Dose: 324 mg Documented by: Fluticasone Propionate (Flonase) 2 sprays NA BID [facility] Stop: 12/12/19 08:59 Last Admin: 11/13/19 20:20 Dose: 2 sprays Documented by: Heparin Sodium (Porcine) (Heparin Sodium (Porcine)) 5,000 units SQ Q12 [facility] Stop: 12/14/19 08:59 Levetiracetam (Keppra) 1,000 mg PO BID [facility] Stop: 12/12/19 08:59 Last Admin: 11/13/19 20:21 Dose: 1,000 mg Documented by: Lidocaine (Lidoderm 5%) 1 patch TD QAM [facility] Stop: 12/13/19 13:59 Last Admin: 11/13/19 14:23 Dose: 1 patch Documented by: Lidocaine HCl (Xylocaine 2% Jelly) 4 ml EXT TID [facility] Stop: 12/12/19 20:59 Last Admin: 11/13/19 20:30 Dose: 4 ml Documented by: Lisinopril (Zestril) 5 mg PO QAM [facility] Stop: 12/13/19 08:59 Last Admin: 11/13/19 08:06 Dose: 5 mg Documented by: Loratadine (Claritin) 10 mg PO DAILY [facility] Stop: 12/12/19 08:59 Last Admin: 11/13/19 08:06 Dose: 10 mg Documented by: Meclizine HCl (Antivert) 12.5 mg PO QID PRN PRN Reason: Dizziness or Vertigo Stop: 12/11/19 21:36 Meloxicam (Mobic) 7.5 mg PO DAILY [facility] Stop: 12/12/19 08:59 Last Admin: 11/13/19 08:06 Dose: 7.5 mg Documented by: Miscellaneous (Remove Lidoderm Patch) 1 ea N/A DAILY@2100 [facility] Stop: 12/13/19 20:59 Last Admin: 11/13/19 20:27 Dose: Not Given Documented by: Multivitamins (Multivitamin Tab) 1 tab PO DAILY [facility] Stop: 12/12/19 08:59 Last Admin: 11/13/19 08:06 Dose: 1 tab Documented by: Nitroglycerin (Nitrostat) 0.4 mg SL UD PRN PRN Reason: Chest Pain Stop: 12/11/19 23:03 Oxycodone HCl (Roxicodone Immediate Rel) 5 mg PO Q4H PRN PRN Reason: Pain Stop: 11/25/19 23:03 Last Admin: 11/13/19 18:36 Dose: 5 mg Documented by: Prednisone (Prednisone) 5 mg PO [facility] Stop: 12/12/19 20:59 Last Admin: 11/13/19 20:22 Dose: 5 mg Documented by: Ropinirole HCl (Requip) 0.25 mg PO HS [facility] Stop: 12/12/19 20:59 Last Admin: 11/13/19 20:21 Dose: 0.25 mg Documented by: Tiotropium [place] (Spiriva) 1 puffs INH DAILY [facility] Stop: 12/12/19 08:59 Last Admin: 11/13/19 08:05 Dose: 1 puffs Documented by:
[2019-11-13] MEDS: TIOTROPIUM BROMIDE 5 PUFF/90 MCG INH INH SCH (08:05)
[2019-11-13] MEDS: LIDOCAINE 2% JELLY 5 ML TUBE EXT SCH ×3 (08:06→20:30)
[2019-11-13] MEDS: MULTIVITAMIN TAB PO SCH (08:06)
[2019-11-13] MEDS: MELOXICAM 7.5 MG TAB PO SCH (08:06)
[2019-11-13] MEDS: levETIRAcetam 500 MG TAB PO SCH ×2 (08:06→20:21)
[2019-11-13] MEDS: lisinopriL 5 MG TAB PO SCH (08:06)
[2019-11-13] MEDS: LORATADINE 10 MG TAB PO SCH (08:06)
[2019-11-13] MEDS: FLUTICASONE PROPIONATE NA SPR 16 GM BTL SCH ×2 (08:06→20:20)
[2019-11-13] MEDS: FAMOTIDINE 20 MG TAB PO SCH ×2 (08:06→23:21)
[2019-11-13] MEDS: FERROUS GLUCONATE 324 MG TAB PO SCH (08:06)
[2019-11-13 08:22] LABS: BUN Creatinine Ratio 10.6 (10-20); Calcium 8.6 mg/dl (8.5-10.1); Creatinine Clr Calc Pharmacy 43.2 ml/min; Est GFR (African American) 97.2; Est GFR (Non-African American) 83.9; Magnesium 1.8 mg/dl (1.8-2.4); Potassium 3.5 mmol/L (3.5-5.1)
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
[2019-11-13] MEDS: BACLOFEN 10 MG TAB PO PRN ×2 (14:05→22:22)
[2019-11-13] MEDS: LIDOCAINE 5% 1 PATCH TD SCH (14:23)
[2019-11-13] MEDS: ROPINIROLE HCL 0.25 MG TABLET PO SCH (20:21)
[2019-11-13] MEDS: ATORVASTATIN 20 MG TAB PO SCH (20:21)
[2019-11-13] MEDS: AMITRIPTYLINE HCL 10 MG TAB PO SCH (20:22)
[2019-11-13] MEDS: predniSONE 5 MG TAB PO SCH (20:22)
[2019-11-13] MEDS ORDERED: POTASSIUM CHLORIDE 20 MEQ TABCR PO STA (22:48)
[2019-11-14] MEDS: OXYCODONE HCL IR 5 MG TAB (IMMEDIATE RELEASE) PO PRN ×3 (03:14→20:53)
[2019-11-14 07:27] LABS: Hematocrit (blood only) 23.4 % (37-47); Hemoglobin 7.9 g/dL (12.0-16.0); Mean Corpuscular Hemoglobin 34.8 pg (25-34); Mean Corpuscular Hgb Conc 33.8 g/dL (32-36); Mean Corpuscular Volume 103.1 fL (80-100); Mean Platelet Volume 9.1 fL (7.4-10.4); Platelet Count 146 K/uL (130-400); RDW Coefficient of Variation 15.7 % (11.5-14.5); Red Blood Count 2.27 M/uL (4.2-5.4); White Blood Count 4.41 K/uL (4.8-10.8)
[2019-11-14 07:33] LABS: BUN Creatinine Ratio 14.4 (10-20); Calcium 8.5 mg/dl (8.5-10.1); Creatinine Clr Calc Pharmacy 36.9 ml/min; Est GFR (African American) 85.9; Est GFR (Non-African American) 74.1
[2019-11-14] MEDS: LORATADINE 10 MG TAB PO SCH (08:11)
[2019-11-14] MEDS: FERROUS GLUCONATE 324 MG TAB PO SCH (08:11)
[2019-11-14] MEDS: FLUTICASONE PROPIONATE NA SPR 16 GM BTL SCH ×2 (08:11→20:50)
[2019-11-14] MEDS: MULTIVITAMIN TAB PO SCH (08:12)
[2019-11-14] MEDS: FAMOTIDINE 20 MG TAB PO SCH ×2 (08:12→20:52)
[2019-11-14] MEDS: levETIRAcetam 500 MG TAB PO SCH ×2 (08:12→20:51)
[2019-11-14] MEDS: MELOXICAM 7.5 MG TAB PO SCH (08:12)
[2019-11-14] MEDS: lisinopriL 5 MG TAB PO SCH (08:13)
[2019-11-14] MEDS ORDERED: HEPARIN SOD 5,000 UNIT/0.5 ML VIAL SQ SCH (09:00)
[2019-11-14] MEDS: LIDOCAINE 2% JELLY 5 ML TUBE EXT SCH ×3 (09:52→21:04)
[2019-11-14] MEDS: TIOTROPIUM BROMIDE 5 PUFF/90 MCG INH INH SCH (10:28)
[2019-11-14] MEDS: LIDOCAINE 5% 1 PATCH TD SCH (10:29)
[2019-11-14] MEDS: BACLOFEN 10 MG TAB PO PRN ×2 (10:36→19:14)
--- NOTE | 2019-11-14 11:03 | Hospitalist Progress Note ---
Date of Service November 14, 2019 Assessment & Plan (1) Dizziness: symptom has resolved Likely multifactorial : Uncontrolled hypertension, possibly chronic given LAD on EKG Hx of vomiting, poss. electrolyte imbalance, dehydration Pt denies any syncopal episodes CT head,neck-negative, Brain MRI / MRA - negative CXR- negat. UA -negative Urine tox- negative Progressing ambulatory dysfunction - PT/OT eval - pt will need SNF/ inpt rehab, referral made to [facility] Hypokalemia - replete and monitor - goal K~4 - check Magnesium, goal Mg~2 COPD - pulmonary status at baseline Seizure disorder - seems stable on current regimen Rheumatoid arthritis - on chronic steroid therapy Chronic anemia -hb was 7.8 this am , repeat shows 9.4 ( pts baseline ) - cont. to monitor Current tobacco use Nicotine patch PRN Malnutrition - BMI of 17 - Nutrition consult DVT ppx: Lovenox subcu Full code DISPOSITION : transfer to SNF when medically stable Subjective no complain of dizzy spell or lightheadedness denies of any pain or discomfort cough has improved no SOB 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) Physical Exam Constitutional: WD/WN, vitals as above no acute distress Eyes: right eye blindness Neck: trachea midline, no thyromegaly Respiratory: normal respiratory effort, lungs clear to auscultation Cardiovascular: RRR, no murmur, no edema Gastrointestinal (Abdomen): normal bowel sounds, soft, nontender, no hepatosplenomegaly Musculoskeletal: no cyanosis or clubbing, extremities motor strength 5/5 Psychiatric: Orientation: alert, oriented x 3 and cooperative Apperance: ap propriately dressed, + disheveled and appeared stated age Eye Contact: good eye contact Motor Behavior: no abnormal motor movements (observed while laying in bed) Affect: mood congruent with affect Results & Data Vital Signs (Past 12 Hours) Vital Signs Temp Pulse Pulse Resp BP Pulse Ox 11/14/19 08:00 64 11/14/19 07:46 36.6 C 73 20 127/64 96 11/14/19 04:19 74 11/14/19 03:21 36.6 C 70 17 177/71 H 95 11/14/19 01:18 74 01/09/20 23:15 37.2 C 73 20 144/70 H 94
[2019-11-14 13:04] LABS: Hematocrit (blood only) 27.2 % (37-47); Hemoglobin 9.2 g/dL (12.0-16.0)
[2019-11-14] MEDS: AMITRIPTYLINE HCL 10 MG TAB PO SCH (20:49)
[2019-11-14] MEDS: ATORVASTATIN 20 MG TAB PO SCH (20:50)
[2019-11-14] MEDS: predniSONE 5 MG TAB PO SCH (20:52)
[2019-11-14] MEDS: ROPINIROLE HCL 0.25 MG TABLET PO SCH (20:53)
[2019-11-15] MEDS: BACLOFEN 10 MG TAB PO PRN ×2 (03:25→19:57)
[2019-11-15] MEDS: OXYCODONE HCL IR 5 MG TAB (IMMEDIATE RELEASE) PO PRN ×4 (03:26→19:58)
[2019-11-15 08:48] LABS: Hematocrit (blood only) 25.7 % (37-47); Hemoglobin 8.8 g/dL (12.0-16.0)
[2019-11-15] MEDS: FAMOTIDINE 20 MG TAB PO SCH ×2 (09:09→21:19)
[2019-11-15] MEDS: lisinopriL 5 MG TAB PO SCH (09:09)
[2019-11-15] MEDS: FERROUS GLUCONATE 324 MG TAB PO SCH (09:09)
[2019-11-15] MEDS: MULTIVITAMIN TAB PO SCH (09:09)
[2019-11-15] MEDS: levETIRAcetam 500 MG TAB PO SCH ×2 (09:10→20:37)
[2019-11-15] MEDS: LORATADINE 10 MG TAB PO SCH (09:10)
[2019-11-15] MEDS: LIDOCAINE 5% 1 PATCH TD SCH (09:11)
[2019-11-15] MEDS: FLUTICASONE PROPIONATE NA SPR 16 GM BTL SCH ×2 (09:13→20:36)
[2019-11-15] MEDS: TIOTROPIUM BROMIDE 5 PUFF/90 MCG INH INH SCH (09:13)
[2019-11-15] MEDS: LIDOCAINE 2% JELLY 5 ML TUBE EXT SCH ×3 (09:17→20:53)
--- NOTE | 2019-11-15 11:07 | Hospitalist Progress Note ---
Date of Service November 15, 2019 Assessment & Plan (1) Dizziness: BILATERAL FEET PAINFUL RASH : not sure of the etiology , noted this AM by nursing , pt was seen by myself yesterday , did not offer any symptoms of pain or swelling of feet the lesions appear to be small whitish papules multiple involving mostly sole of the feet , tender to touch will have Dermatology consult DIZZY SPELL symptom has resolved Likely multifactorial : Uncontrolled hypertension, possibly chronic given LAD on EKG Hx of vomiting, poss. electrolyte imbalance, dehydration Pt denies any syncopal episodes CT head,neck-negative, Brain MRI / MRA - negative CXR- negat. UA -negative Urine tox- negative Progressing ambulatory dysfunction - PT/OT eval - pt will need SNF/ inpt rehab, referral made to [facility] Hypokalemia - replete and monitor - goal K~4 - check Magnesium, goal Mg~2 COPD - pulmonary status at baseline Seizure disorder - seems stable on current regimen Rheumatoid arthritis - on chronic steroid therapy Chronic anemia -hb was 7.8 this am , repeat shows 9.4 ( pts baseline ) - cont. to monitor Current tobacco use Nicotine patch PRN Malnutrition - BMI of 17 - Nutrition consult DVT ppx: Lovenox subcu Full code DISPOSITION : transfer to SNF when medically stable Subjective complains of intractable pain on both feet painful white blisters?, rash noted on bilateral sole of the foot no open wounds both feet are tender , increased warmth and tenderness noted no fever or chills no complain of SOB , no cough , no dizzy spell 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) Integumentary: + rash (painfule white blisters on both feet involving bilateral sole ) Physical Exam Constitutional: WD/WN, vitals as above no acute distress Neck: trachea midline, no thyromegaly Respiratory: normal respiratory effort, lungs clear to auscultation Cardiovascular: RRR, no murmur, no edema Gastrointestinal (Abdomen): normal bowel sounds, soft, nontender, no hepatosplenomegaly Musculoskeletal: no cyanosis or clubbing, extremities motor strength 5/5 Psychiatric: Orientation: alert, oriented x 3 and cooperative Apperance: appropriately dressed, + disheveled and appeared stated age Eye Contact: good eye contact Results & Data Vital Signs (Past 12 Hours) Vital Signs Temp Pulse Resp BP Pulse Ox 11/15/19 07:00 36.9 C 56 L 16 135/52 L 94
[2019-11-15] MEDS: AMITRIPTYLINE HCL 10 MG TAB PO SCH (20:36)
[2019-11-15] MEDS: ROPINIROLE HCL 0.25 MG TABLET PO SCH (20:36)
[2019-11-15] MEDS: ATORVASTATIN 20 MG TAB PO SCH (20:37)
[2019-11-15] MEDS: predniSONE 5 MG TAB PO SCH (20:38)
[2019-11-16] MEDS: OXYCODONE HCL IR 5 MG TAB (IMMEDIATE RELEASE) PO PRN ×2 (02:59→08:56)
[2019-11-16] MEDS: TIOTROPIUM BROMIDE 5 PUFF/90 MCG INH INH SCH (08:49)
[2019-11-16] MEDS: FLUTICASONE PROPIONATE NA SPR 16 GM BTL SCH ×2 (08:50→20:45)
[2019-11-16] MEDS: LIDOCAINE 5% 1 PATCH TD SCH (08:51)
[2019-11-16] MEDS: FAMOTIDINE 20 MG TAB PO SCH ×2 (08:55→20:47)
[2019-11-16] MEDS: MULTIVITAMIN TAB PO SCH (08:55)
[2019-11-16] MEDS: lisinopriL 5 MG TAB PO SCH (08:55)
[2019-11-16] MEDS: FERROUS GLUCONATE 324 MG TAB PO SCH (08:56)
[2019-11-16] MEDS: levETIRAcetam 500 MG TAB PO SCH ×2 (08:56→20:46)
[2019-11-16] MEDS: LIDOCAINE 2% JELLY 5 ML TUBE EXT SCH ×3 (08:57→22:15)
[2019-11-16] MEDS: LORATADINE 10 MG TAB PO SCH (09:12)
--- NOTE | 2019-11-16 12:47 | Hospitalist Progress Note ---
Date of Service November 16, 2019 Assessment & Plan (1) Dizziness: BILATERAL FEET PAINFUL RASH : Possible secondary to calcium deposition? She reports she has similar calcium deposit on her anterior chest wall, on lower chin in the past, which was resolved spontaneously the lesions appear to be small whitish papules multiple involving mostly sole of the feet , tender to touch Ordered for NSAIDs for the pain and discomfort which usually caused by inflammatory reaction from the calcium deposit Apply moisturizer and on this area to prevent as dry skin/skin breakdown which may cause worsening of pain and secondary infection Dermatology consult in a.m. DIZZY SPELL symptom has resolved Likely multifactorial : Uncontrolled hypertension, possibly chronic given LAD on EKG Hx of vomiting, poss. electrolyte imbalance, dehydration Pt denies any syncopal episodes CT head,neck-negative, Brain MRI / MRA - negative CXR- negat. UA -negative Urine tox- negative Progressing ambulatory dysfunction - PT/OT eval - pt will need SNF/ inpt rehab, referral made to [facility] Hypokalemia -Corrected electrolytes stable COPD - pulmonary status at baseline Seizure disorder - seems stable on current regimen Rheumatoid arthritis - on chronic steroid therapy Chronic anemia -Hemoglobin in 8.8 which is patient's approximate baseline Current tobacco use Nicotine patch PRN Malnutrition - BMI of 17 - Nutrition consult DVT ppx: Lovenox subcu Full code DISPOSITION : transfer to SNF when medically stable Subjective Is better today bilateral foot pain has improved, still had white blisters No fever or chills, no cough no dizzy spell lightheadedness 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) Integumentary: + rash (painfule white blisters on both feet involving bilateral sole ) Physical Exam Constitutional: WD/WN, vitals as above no acute distress Neck: trachea midline, no thyromegaly Respiratory: normal respiratory effort, lungs clear to auscultation Cardiovascular: RRR, no murmur, no edema Gastrointestinal (Abdomen): normal bowel sounds, soft, nontender, no hepatosplenomegaly Musculoskeletal: no cyanosis or clubbing, extremities motor strength 5/5 Skin: + lesion (To pull 1 mm macular/induration with whitish spot on bilateral sole of the foot) Psychiatric: Orientation: alert, oriented x 3 and cooperative Suicidal Thoughts: denies suicidal plan Results & Data Vital Signs (Past 12 Hours) Vital Signs Temp Pulse Resp BP Pulse Ox 11/16/19 07:22 37.1 C 66 18 159/86 H 97
[2019-11-16] MEDS ORDERED: KETOROLAC TROMETHAMINE 15 MG/ML VIAL IV PRN (12:52)
[2019-11-16] MEDS: BACLOFEN 10 MG TAB PO PRN ×2 (17:45→22:25)
[2019-11-16] MEDS: KETOROLAC TROMETHAMINE 10 MG TABLET PO PRN (20:42)
[2019-11-16] MEDS: AMITRIPTYLINE HCL 10 MG TAB PO SCH (20:43)
[2019-11-16] MEDS: ATORVASTATIN 20 MG TAB PO SCH (20:46)
[2019-11-16] MEDS: ROPINIROLE HCL 0.25 MG TABLET PO SCH (20:47)
[2019-11-16] MEDS: predniSONE 5 MG TAB PO SCH (20:47)
[2019-11-17] MEDS ORDERED: OXYCODONE HCL IR 5 MG TAB (IMMEDIATE RELEASE) PO STA (00:18)
[2019-11-17] MEDS: LIDOCAINE 5% 1 PATCH TD SCH (08:52)
[2019-11-17] MEDS: MULTIVITAMIN TAB PO SCH (08:54)
[2019-11-17] MEDS: lisinopriL 5 MG TAB PO SCH (08:54)
[2019-11-17] MEDS: FAMOTIDINE 20 MG TAB PO SCH ×2 (08:54→20:54)
[2019-11-17] MEDS: FERROUS GLUCONATE 324 MG TAB PO SCH (08:54)
[2019-11-17] MEDS: KETOROLAC TROMETHAMINE 10 MG TABLET PO PRN ×2 (08:55→21:18)
[2019-11-17] MEDS: FLUTICASONE PROPIONATE NA SPR 16 GM BTL SCH ×2 (08:57→20:51)
[2019-11-17] MEDS: LORATADINE 10 MG TAB PO SCH (08:57)
[2019-11-17] MEDS: TIOTROPIUM BROMIDE 5 PUFF/90 MCG INH INH SCH (08:57)
[2019-11-17] MEDS: levETIRAcetam 500 MG TAB PO SCH ×2 (08:57→20:49)
[2019-11-17] MEDS: LIDOCAINE 2% JELLY 5 ML TUBE EXT SCH ×3 (09:03→20:56)
[2019-11-17] MEDS ORDERED: MECLIZINE 12.5 MG TAB PO PRN (09:17)
[2019-11-17] MEDS ORDERED: ONDANSETRON 4 MG TAB PO PRN (09:17)
[2019-11-17] MEDS ORDERED: guaiFENesin 200 MG TAB PO PRN (09:34)
[2019-11-17] MEDS: OXYCODONE HCL IR 5 MG TAB (IMMEDIATE RELEASE) PO PRN ×3 (09:49→18:06)
[2019-11-17] MEDS: BACLOFEN 10 MG TAB PO PRN ×2 (10:21→17:10)
--- NOTE | 2019-11-17 14:22 | Hospitalist Progress Note ---
Date of Service November 17, 2019 Assessment & Plan (1) Dizziness: BILATERAL FEET PAINFUL RASH : Possible secondary to calcium deposition? She reports she has similar calcium deposit on her anterior chest wall, on lower chin in the past, which was resolved spontaneously the lesions appear to be small whitish papules multiple involving mostly sole of the feet , tender to touch Ordered for NSAIDs for the pain and discomfort which usually caused by inflammatory reaction from the calcium deposit Apply moisturizer and on this area to prevent as dry skin/skin breakdown which may cause worsening of pain and secondary infection Symptoms improved after NSAID Patient will need outpatient dermatology evaluation DIZZY SPELL symptom has resolved Feels fine, denies of any feeling of lightheadedness, Likely multifactorial : Uncontrolled hypertension, possibly chronic given LAD on EKG Hx of vomiting, poss. electrolyte imbalance, dehydration Pt denies any syncopal episodes CT head,neck-negative, Brain MRI / MRA - negative CXR- negat. UA -negative Urine tox- negative Progressing ambulatory dysfunction - PT/OT eval - pt will need SNF/ inpt rehab, referral made to [facility] Hypokalemia -Corrected electrolytes stable COPD - pulmonary status at baseline Seizure disorder - seems stable on current regimen Rheumatoid arthritis - on chronic steroid therapy Chronic anemia -Hemoglobin in 8.8 which is patient's approximate baseline Current tobacco use Nicotine patch PRN Malnutrition - BMI of 17 - Nutrition consult DVT ppx: Lovenox subcu Full code DISPOSITION : PT OT evaluation appreciated recommended skilled rehab Patient is medically stable to be transferred [facility] /SNF waiting insurance auth Subjective Feels much better today no cough no shortness of breath no dizzy spell Does not have much pain or discomfort in bilateral feet Has multiple whitish papules/rash on bilateral sole of the feet No fever or chills 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) Integumentary: + rash ( white blisters on both feet involving bilateral sole ) Physical Exam Constitutional: WD/WN, vitals as above no acute distress Neck: trachea midline, no thyromegaly Respiratory: normal respiratory effort, lungs clear to auscultation Cardiovascular: RRR, no murmur, no edema Gastrointestinal (Abdomen): normal bowel sounds, soft, nontender, no hepatosplenomegaly Musculoskeletal: no cyanosis or clubbing, extremities motor strength 5/5 Skin: + lesion (To pull 1 mm macular/induration with whitish spot on bilateral sole of the foot) Psychiatric: Orientation: alert, oriented x 3 and cooperative Apperance: appropriately dressed, + disheveled and appeared stated age Eye Contact: good eye contact Affect: mood congruent with affect Results & Data Vital Signs (Past 12 Hours) Vital Signs Temp Pulse Resp BP Pulse Ox 11/17/19 07:36 36.7 C 55 L 16 105/61 94
[2019-11-17] MEDS: AMITRIPTYLINE HCL 10 MG TAB PO SCH ×2 (20:49→20:52)
[2019-11-17] MEDS: ATORVASTATIN 20 MG TAB PO SCH (20:50)
[2019-11-17] MEDS: ROPINIROLE HCL 0.25 MG TABLET PO SCH (20:50)
[2019-11-17] MEDS: predniSONE 5 MG TAB PO SCH (20:51)
[2019-11-17] MEDS: DOCUSATE SODIUM 100 MG CAP PO SCH (20:53)
[2019-11-18] MEDS: OXYCODONE HCL IR 5 MG TAB (IMMEDIATE RELEASE) PO PRN ×4 (00:52→20:50)
[2019-11-18] MEDS: BACLOFEN 10 MG TAB PO PRN ×3 (00:56→20:50)
[2019-11-18] MEDS: FERROUS GLUCONATE 324 MG TAB PO SCH (09:54)
[2019-11-18] MEDS: LORATADINE 10 MG TAB PO SCH (09:54)
[2019-11-18] MEDS: lisinopriL 5 MG TAB PO SCH (09:54)
[2019-11-18] MEDS: MULTIVITAMIN TAB PO SCH (09:54)
[2019-11-18] MEDS: FAMOTIDINE 20 MG TAB PO SCH ×2 (09:55→20:53)
[2019-11-18] MEDS: LIDOCAINE 5% 1 PATCH TD SCH (09:55)
[2019-11-18] MEDS: levETIRAcetam 500 MG TAB PO SCH ×2 (09:55→20:51)
[2019-11-18] MEDS: FLUTICASONE PROPIONATE NA SPR 16 GM BTL SCH ×2 (09:56→20:52)
[2019-11-18] MEDS: TIOTROPIUM BROMIDE 5 PUFF/90 MCG INH INH SCH (09:56)
[2019-11-18] MEDS: DOCUSATE SODIUM 100 MG CAP PO SCH ×2 (09:59→20:56)
[2019-11-18] MEDS: LIDOCAINE 2% JELLY 5 ML TUBE EXT SCH ×3 (10:00→20:50)
--- NOTE | 2019-11-18 11:21 | Hospitalist Progress Note ---
Date of Service November 18, 2019 Assessment & Plan (1) Dizziness: BILATERAL FEET PAINFUL RASH : Possible secondary to calcium deposition? She reports she has similar calcium deposit on her anterior chest wall, on lower chin in the past, which was resolved spontaneously the lesions appear to be small whitish papules multiple involving mostly sole of the feet , tender to touch Symptom has improved in the last 2 days Continue NSAIDs for the pain and discomfort which usually caused by inflammatory reaction from the calcium deposit Apply moisturizer and on this area to prevent as dry skin/skin breakdown which may cause worsening of pain and secondary infection Patient will need outpatient dermatology evaluation DIZZY SPELL symptom has resolved Feels fine, denies of any feeling of lightheadedness, Progressing ambulatory dysfunction - PT/OT eval - pt will need SNF/ inpt rehab, referral made to [facility] Hypokalemia -Corrected electrolytes stable COPD - pulmonary status at baseline Seizure disorder - seems stable on current regimen Rheumatoid arthritis - on chronic steroid therapy Chronic anemia -Hemoglobin in 8.8 which is patient's approximate baseline Current tobacco use Nicotine patch PRN Malnutrition - BMI of 17 - Nutrition consult DVT ppx: Lovenox subcu Full code DISPOSITION : PT OT evaluation appreciated recommended skilled rehab Patient is medically stable to be transferred [facility] /SNF waiting insurance auth Subjective Offers no new complaint, no fever or chills, no cough no dizzy spell or lightheadedness 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) Integumentary: + rash ( white blisters on both feet involving bilateral sole ) Physical Exam Constitutional: WD/WN, vitals as above no acute distress Neck: trachea midline, no thyromegaly Respiratory: normal respiratory effort, lungs clear to auscultation Cardiovascular: RRR, no murmur, no edema Gastrointestinal (Abdomen): normal bowel sounds, soft, nontender, no hepatosplenomegaly Musculoskeletal: no cyanosis or clubbing, extremities motor strength 5/5 Psychiatric: Orientation: alert, oriented x 3 and cooperative Eye Contact: good eye contact Hallucinations: no visual hallucinations Results & Data Vital Signs (Past 12 Hours) Vital Signs Temp Pulse Resp BP Pulse Ox 11/18/19 07:32 36.7 C 53 L 16 113/58 L 94 01/13/20 23:23 36.8 C 64 19 122/52 L 91
[2019-11-18] MEDS: AMITRIPTYLINE HCL 10 MG TAB PO SCH ×2 (20:51→20:52)
[2019-11-18] MEDS: predniSONE 5 MG TAB PO SCH (20:52)
[2019-11-18] MEDS: ATORVASTATIN 20 MG TAB PO SCH (20:52)
[2019-11-18] MEDS: ROPINIROLE HCL 0.25 MG TABLET PO SCH (20:53)
[2019-11-19] MEDS: KETOROLAC TROMETHAMINE 10 MG TABLET PO PRN (00:19)
[2019-11-19] MEDS: OXYCODONE HCL IR 5 MG TAB (IMMEDIATE RELEASE) PO PRN ×4 (00:48→22:28)
[2019-11-19] MEDS: FLUTICASONE PROPIONATE NA SPR 16 GM BTL SCH ×2 (08:05→20:25)
[2019-11-19] MEDS: levETIRAcetam 500 MG TAB PO SCH ×2 (08:06→20:26)
[2019-11-19] MEDS: FERROUS GLUCONATE 324 MG TAB PO SCH (08:06)
[2019-11-19] MEDS: MULTIVITAMIN TAB PO SCH (08:06)
[2019-11-19] MEDS: lisinopriL 5 MG TAB PO SCH (08:06)
[2019-11-19] MEDS: LORATADINE 10 MG TAB PO SCH (08:07)
[2019-11-19] MEDS: FAMOTIDINE 20 MG TAB PO SCH ×2 (08:07→20:27)
[2019-11-19] MEDS: LIDOCAINE 5% 1 PATCH TD SCH (08:07)
[2019-11-19] MEDS: TIOTROPIUM BROMIDE 5 PUFF/90 MCG INH INH SCH (08:08)
[2019-11-19] MEDS: DOCUSATE SODIUM 100 MG CAP PO SCH ×2 (09:08→20:25)
[2019-11-19] MEDS: LIDOCAINE 2% JELLY 5 ML TUBE EXT SCH ×3 (09:08→20:27)
--- NOTE | 2019-11-19 13:46 | Hospitalist Progress Note ---
Date of Service November 19, 2019 Assessment & Plan (1) Dizziness: BILATERAL FEET PAINFUL RASH : Possible secondary to calcium deposition? She reports she has similar calcium deposit on her anterior chest wall, on lower chin in the past, which was resolved spontaneously the lesions appear to be small whitish papules multiple involving mostly sole of the feet , tender to touch Symptom has improved in the last 2 days Continue NSAIDs and topical lidocaine gel for the pain and discomfort which usually caused by inflammatory reaction from the calcium deposit Apply moisturizer and on this area to prevent as dry skin/skin breakdown which may cause worsening of pain and secondary infection Patient will need outpatient dermatology evaluation DIZZY SPELL symptom has resolved Feels fine, denies of any feeling of lightheadedness, Progressing ambulatory dysfunction - PT/OT eval - pt will need SNF/ inpt rehab, referral made to [facility] Hypokalemia -Corrected electrolytes stable COPD - pulmonary status at baseline Seizure disorder - seems stable on current regimen Rheumatoid arthritis - on chronic steroid therapy Chronic anemia -Hemoglobin in 8.8 which is patient's approximate baseline Current tobacco use Nicotine patch PRN Malnutrition - BMI of 17 - Nutrition consult DVT ppx: Lovenox subcu Full code DISPOSITION : PT OT evaluation appreciated recommended skilled rehab Patient is medically stable to be [facility] waiting insurance auth Subjective Patient is lying in bed, in no acute distress, says she is comfortable but tired. Denies any fever or chills, no cough no dizzy spell or lightheadedness. Says her appetite is good, denies any abdominal pain, nausea or vomiting. 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) Integumentary: + rash ( white blisters on both feet involving bilateral sole ) Physical Exam Physical Exam: Constitutional: Elderly thin female, laying in bed, in no acute distress Neck: trachea midline, no thyromegaly Respiratory: normal respiratory effort, lungs clear to auscultation, no whe ezing, rhonchi or crackles Cardiovascular: RRR, no murmur, no edema Gastrointestinal (Abdomen): normal bowel sounds, soft, nontender, nondistended, no guarding Musculoskeletal: no cyanosis or clubbing, extremities motor strength 5/5, moves extremities spontaneously, small white papules present on patient's feet, hard to palpation Neuro/ Psych: Orientation: alert, oriented x 3 and cooperative , speech fluent, moves extremities spontaneously, Eye Contact: good eye contact Hallucinations: no visual hallucinations Results & Data Vital Signs (Past 12 Hours) Vital Signs Temp Pulse Resp BP BP Pulse Ox 11/19/19 07:01 36.8 C 55 L 16 126/71 93 11/19/19 03:06 36.8 C 70 18 106/57 L 91 Medications Administered Current Inpatient Medications Acetaminophen (Tylenol) 650 mg PO Q4H PRN PRN Reason: Pain or Fever Stop: 12/11/19 23:03 Amitriptyline HCl (Elavil) 35 mg PO [facility] Stop: 12/12/19 20:59 Last Admin: 11/18/19 20:51 Dose: 35 mg Documented by: Amitriptyline HCl (Elavil) 10 mg PO HS [facility] Stop: 12/17/19 20:59 Last Admin: 11/18/19 20:52 Dose: 10 mg Documented by: Atorvastatin Calcium (Lipitor) 20 mg PO [facility] Stop: 12/12/19 20:59 Last Admin: 11/18/19 20:52 Dose: 20 mg Documented by: Baclofen (Lioresal) 10 mg PO TID PRN PRN Reason: Back Pain Stop: 12/11/19 23:03 Last Admin: 11/18/19 20:50 Dose: 10 mg Documented by: Docusate Sodium (Colace) 100 mg PO BID [facility] Stop: 12/17/19 20:59 Last Admin: 11/19/19 09:08 Dose: 100 mg Documented by: Famotidine (Pepcid) 20 mg PO BID [facility] Stop: 12/13/19 22:59 Last Admin: 11/19/19 08:07 Dose: 20 mg Documented by: Ferrous Gluconate (Ferrous Gluconate) 324 mg PO DAILY [facility] Stop: 12/12/19 08:59 Last Admin: 11/19/19 08:06 Dose: 324 mg Documented by: Fluticasone Propionate (Flonase) 2 sprays NA BID [facility] Stop: 12/12/19 08:59 Last Admin: 11/19/19 08:05 Dose: 2 sprays Documented by: Guaifenesin (Organidin Nr) 400 mg PO DAILY PRN PRN Reason: nasal congestion Stop: 12/17/19 09:33 Ketorolac Tromethamine (Toradol) 10 mg PO Q6H PRN PRN Reason: Pain Stop: 11/21/19 18:06 Last Admin: 11/19/19 00:19 Dose: 10 mg Documented by: Levetiracetam (Keppra) 1,000 mg PO BID [facility] Stop: 12/12/19 08:59 Last Admin: 11/19/19 08:06 Dose: 1,000 mg Documented by: Lidocaine (Lidoderm 5%) 1 patch TD QAM [facility] Stop: 12/13/19 13:59 Last Admin: 11/19/19 08:07 Dose: 1 patch Documented by: Lidocaine HCl (Xylocaine 2% Jelly) 4 ml EXT TID [facility] Stop: 12/12/19 20:59 Last Admin: 11/19/19 09:08 Dose: 4 ml Documented by: Lisinopril (Zestril) 5 mg PO QAM [facility] Stop: 12/13/19 08:59 Last Admin: 11/19/19 08:06 Dose: 5 mg Documented by: Loratadine (Claritin) 10 mg PO DAILY [facility] Stop: 12/12/19 08:59 Last Admin: 11/19/19 08:07 Dose: 10 mg Documented by: Meclizine HCl (Antivert) 12.5 mg PO QID PRN PRN Reason: Dizziness or Vertigo Stop: 12/11/19 21:36 Meclizine HCl (Antivert) 12.5 mg PO TID PRN PRN Reason: dizziness Stop: 12/17/19 09:16 Miscellaneous (Remove Lidoderm Patch) 1 ea N/A DAILY@2100 [facility] Stop: 12/13/19 20:59 Last Admin: 11/18/19 20:53 Dose: 1 ea Documented by: Multivitamins (Multivitamin Tab) 1 tab PO DAILY [facility] Stop: 12/12/19 08:59 Last Admin: 11/19/19 08:06 Dose: 1 tab Documented by: Nitroglycerin (Nitrostat) 0.4 mg SL UD PRN PRN Reason: Chest Pain Stop: 12/11/19 23:03 Ondansetron HCl (Zofran Tab) 4 mg PO Q6H PRN PRN Reason: Nausea Stop: 12/17/19 09:16 Oxycodone HCl (Roxicodone Immediate Rel) 5 mg PO Q4 PRN PRN Reason: Pain Stop: 12/01/19 09:19 Last Admin: 11/19/19 09:15 Dose: 5 mg Documented by: Prednisone (Prednisone) 5 mg PO [facility] Stop: 12/12/19 20:59 Last Admin: 11/18/19 20:52 Dose: 5 mg Documented by: Ropinirole HCl (Requip) 0.25 mg PO [facility] Stop: 12/12/19 20:59 Last Admin: 11/18/19 20:53 Dose: 0.25 mg Documented by: Tiotropium [place] (Spiriva) 1 puffs INH DAILY [facility] Stop: 12/12/19 08:59 Last Admin: 11/19/19 08:08 Dose: 1 puffs Documented by:
[2019-11-19] MEDS: BACLOFEN 10 MG TAB PO PRN (14:49)
[2019-11-19] MEDS: AMITRIPTYLINE HCL 10 MG TAB PO SCH ×2 (20:25)
[2019-11-19] MEDS: ROPINIROLE HCL 0.25 MG TABLET PO SCH (20:26)
[2019-11-19] MEDS: predniSONE 5 MG TAB PO SCH (20:26)
[2019-11-19] MEDS: ATORVASTATIN 20 MG TAB PO SCH (20:27)
[2019-11-20] MEDS: TIOTROPIUM BROMIDE 5 PUFF/90 MCG INH INH SCH (07:41)
[2019-11-20] MEDS: LIDOCAINE 5% 1 PATCH TD SCH (07:41)
[2019-11-20] MEDS: FLUTICASONE PROPIONATE NA SPR 16 GM BTL SCH ×2 (07:41→20:16)
[2019-11-20] MEDS: levETIRAcetam 500 MG TAB PO SCH ×2 (07:42→20:11)
[2019-11-20] MEDS: MULTIVITAMIN TAB PO SCH (07:42)
[2019-11-20] MEDS: lisinopriL 5 MG TAB PO SCH (07:42)
[2019-11-20] MEDS: FERROUS GLUCONATE 324 MG TAB PO SCH (07:42)
[2019-11-20] MEDS: LORATADINE 10 MG TAB PO SCH (07:43)
[2019-11-20] MEDS: FAMOTIDINE 20 MG TAB PO SCH ×2 (07:43→20:15)
[2019-11-20] MEDS: OXYCODONE HCL IR 5 MG TAB (IMMEDIATE RELEASE) PO PRN ×2 (08:46→17:09)
[2019-11-20] MEDS: LIDOCAINE 2% JELLY 5 ML TUBE EXT SCH ×4 (08:47→20:16)
[2019-11-20] MEDS: DOCUSATE SODIUM 100 MG CAP PO SCH ×2 (08:47→20:55)
--- NOTE | 2019-11-20 09:45 | Hospitalist Progress Note ---
Date of Service November 20, 2019 Assessment & Plan (1) Dizziness: BILATERAL FEET PAINFUL RASH : Possible secondary to calcium deposition? She reports she has similar calcium deposit on her anterior chest wall, on lower chin in the past, which was resolved spontaneously the lesions appear to be small whitish papules multiple involving mostly sole of the feet , tender to touch Symptom has improved in the last couple of days Continue NSAIDs and topical lidocaine gel for the pain and discomfort which usually caused by inflammatory reaction from the calcium deposit Apply moisturizer and on this area to prevent as dry skin/skin breakdown which may cause worsening of pain and secondary infection Patient will need outpatient dermatology evaluation DIZZY SPELL symptom has resolved Feels well, denies of any feeling of lightheadedness Progressing ambulatory dysfunction - PT/OT eval - pt will need SNF/ inpt rehab - plan to d/c to [place] [place] Hypokalemia -Corrected electrolytes stable COPD - pulmonary status at baseline Seizure disorder - seems stable on current regimen Rheumatoid arthritis - on chronic steroid therapy Chronic anemia -Hemoglobin in 8.8 which is patient's approximate baseline Current tobacco use Nicotine patch PRN Malnutrition - BMI of 17 - Nutrition consult DVT ppx: Lovenox subcu Full code DISPOSITION : PT OT evaluation appreciated recommended skilled rehab Patient is medically stable to be transferred to [place] [place] Subjective Patient is lying in bed, in no acute distress, comfortable. Denies any fever or chills, no cough no dizzy spell or lightheadedness. Says her appetite is good, denies any abdominal pain, nausea or vomiting. 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) Integumentary: + rash ( white blisters on both feet involving bilateral sole ) Physical Exam Physical Exam: Constitutional: Elderly thin female, laying in bed, in no acute distress Neck: trachea midline, no thyromegaly Respiratory: normal respiratory effort, lungs clear to auscultation, no wheezing, rhonchi or crackles Cardiovascular: RRR, no murmur, no edema Gastrointestinal (Abdomen): normal bowel sounds, soft, nontender, nondistended, no guarding Musculoskeletal: no cyanosis or clubbing, extremities motor strength 5/5, moves extremities spontaneously, small white papules present on patient's feet, hard and tender to palpation Neuro/ Psych: Orientation: alert, oriented x 3 and cooperative , speech fluent, moves extremities spontaneously, Eye Contact: good eye contact Hallucinations: no visual hallucinations Results & Data Vital Signs (Past 12 Hours) Vital Signs Temp Pulse Resp BP BP Pulse Ox 11/20/19 07:11 36.6 C 59 L 16 118/73 99 11/19/19 22:16 36.7 C 60 18 137/71 92 Medications Administered Current Inpatient Medications Acetaminophen (Tylenol) 650 mg PO Q4H PRN PRN Reason: Pain or Fever Stop: 12/11/19 23:03 Amitriptyline HCl (Elavil) 35 mg PO [facility] Stop: 12/12/19 20:59 Last Admin: 11/19/19 20:25 Dose: 35 mg Documented by: Amitriptyline HCl (Elavil) 10 mg PO HS [facility] Stop: 12/17/19 20:59 Last Admin: 11/19/19 20:25 Dose: 10 mg Documented by: Atorvastatin Calcium (Lipitor) 20 mg PO HS [facility] Stop: 12/12/19 20:59 Last Admin: 11/19/19 20:27 Dose: 20 mg Documented by: Baclofen (Lioresal) 10 mg PO TID PRN PRN Reason: Back Pain Stop: 12/11/19 23:03 Last Admin: 11/19/19 14:49 Dose: 10 mg Documented by: Docusate Sodium (Colace) 100 mg PO BID [facility] Stop: 12/17/19 20:59 Last Admin: 11/20/19 08:47 Dose: 100 mg Documented by: Famotidine (Pepcid) 20 mg PO BID [facility] Stop: 12/13/19 22:59 Last Admin: 11/20/19 07:43 Dose: 20 mg Documented by: Ferrous Gluconate (Ferrous Gluconate) 324 mg PO DAILY [facility] Stop: 12/12/19 08:59 Last Admin: 11/20/19 07:42 Dose: 324 mg Documented by: Fluticasone Propionate (Flonase) 2 sprays NA BID [facility] Stop: 12/12/19 08:59 Last Admin: 11/20/19 07:41 Dose: 2 sprays Documented by: Guaifenesin (Organidin Nr) 400 mg PO DAILY PRN PRN Reason: nasal congestion Stop: 12/17/19 09:33 Ketorolac Tromethamine (Toradol) 10 mg PO Q6H PRN PRN Reason: Pain Stop: 11/21/19 18:06 Last Admin: 11/19/19 00:19 Dose: 10 mg Documented by: Levetiracetam (Keppra) 1,000 mg PO BID [facility] Stop: 12/12/19 08:59 Last Admin: 11/20/19 07:42 Dose: 1,000 mg Documented by: Lidocaine (Lidoderm 5%) 1 patch TD QAM [facility] Stop: 12/13/19 13:59 Last Admin: 11/20/19 07:41 Dose: 1 patch Documented by: Lidocaine HCl (Xylocaine 2% Jelly) 4 ml EXT TID [facility] Stop: 12/12/19 20:59 Last Admin: 11/20/19 08:47 Dose: 4 ml Documented by: Lisinopril (Zestril) 5 mg PO QAM [facility] Stop: 12/13/19 08:59 Last Admin: 11/20/19 07:42 Dose: 5 mg Documented by: Loratadine (Claritin) 10 mg PO DAILY [facility] Stop: 12/12/19 08:59 Last Admin: 11/20/19 07:43 Dose: 10 mg Documented by: Meclizine HCl (Antivert) 12.5 mg PO QID PRN PRN Reason: Dizziness or Vertigo Stop: 12/11/19 21:36 Meclizine HCl (Antivert) 12.5 mg PO TID PRN PRN Reason: dizziness Stop: 12/17/19 09:16 Miscellaneous (Remove Lidoderm Patch) 1 ea N/A DAILY@2100 [facility] Stop: 12/13/19 20:59 Last Admin: 11/19/19 20:26 Dose: 1 ea Documented by: Multivitamins (Multivitamin Tab) 1 tab PO DAILY [facility] Stop: 12/12/19 08:59 Last Admin: 11/20/19 07:42 Dose: 1 tab Documented by: Nitroglycerin (Nitrostat) 0.4 mg SL UD PRN PRN Reason: Chest Pain Stop: 12/11/19 23:03 Ondansetron HCl (Zofran Tab) 4 mg PO Q6H PRN PRN Reason: Nausea Stop: 12/17/19 09:16 Oxycodone HCl (Roxicodone Immediate Rel) 5 mg PO Q4 PRN PRN Reason: Pain Stop: 12/01/19 09:19 Last Admin: 11/20/19 08:46 Dose: 5 mg Documented by: Prednisone (Prednisone) 5 mg PO [facility] Stop: 12/12/19 20:59 Last Admin: 11/19/19 20:26 Dose: 5 mg Documented by: Ropinirole HCl (Requip) 0.25 mg PO [facility] Stop: 12/12/19 20:59 Last Admin: 11/19/19 20:26 Dose: 0.25 mg Documented by: Tiotropium [place] (Spiriva) 1 puffs INH DAILY [facility] Stop: 12/12/19 08:59 Last Admin: 11/20/19 07:41 Dose: 1 puffs Documented by:
[2019-11-20] MEDS: BACLOFEN 10 MG TAB PO PRN ×2 (14:11→20:55)
[2019-11-20] MEDS: AMITRIPTYLINE HCL 10 MG TAB PO SCH ×2 (20:12→20:13)
[2019-11-20] MEDS: predniSONE 5 MG TAB PO SCH (20:12)
[2019-11-20] MEDS: ROPINIROLE HCL 0.25 MG TABLET PO SCH (20:13)
[2019-11-20] MEDS: ATORVASTATIN 20 MG TAB PO SCH (20:13)
[2019-11-21] MEDS: OXYCODONE HCL IR 5 MG TAB (IMMEDIATE RELEASE) PO PRN ×2 (01:04→09:37)
--- NOTE | 2019-11-21 08:10 | Discharge Summary ---
Date of Service November 21, 2019 Admission HPI Per Admitting Provider Emily Stover is an 79-year-old female admitted medically on 11/11/2019 after presenting to the ED with reports of dizziness and multiple falls without syncope. It is reported that patient disclosed that she has recently been evicted from her apartment, but medical needs at this time also meet criteria for personal jail/assisted facility. Patient has requested transfer to such facility at time of discharge. As referral process was being initiated, it was reportedly discovered the patient has a remote history of psychiatric state hospitalization. It is reported that psychiatric evaluation is necessary to complete referral process for discharge planning. Patient's case was reviewed and discussed with psychiatric nurse liaison and supervising psychiatrist. Patient was seen on psychiatric consult service to complete psychiatric evaluation. Pt was cooperative with psychiatric evaluation. She gave verbal consent to allow Princess Mark PA-C to observe encounter. Reason for the involvement of our service was explained to the patient, as she was informed in evaluation was part of the referral process. Pt does admit to situational stress at present, which has been rather overwhelming. She states she was given the eviction notice the middle of October, and is overwhelmed about making arrangements to remove her items within the provided 30-days. Pt states that she has had difficulty getting support from family and states that she is "disgusted" by this. Pt does admit to a remote history of psychiatric hospitalization, stating that she was admitted to [facility] in her late teens (?between 15 and 17) for a 3 month duration. According to the patient, she overdosed on medications after a break-up with a boyfriend. She states that she had left a letter in the home of a close family friend and was later found unresponsive on the floor. Pt states that family members found out about the attempt, "took me to the doctor, not even the hospital. Then they drove me to [place] to have me admitted." Pt states she stayed for 3 months, but does not recall medications being initiated. She does admit to taking amitriptyline for 20+ years, stating it was initiated by her neurologist for "crying spells." Pt states she has not had any issues since that time. When asked her understanding of history of psychiatric diagnoses, the patient states "No, no honey - none of that. I didn't have any issues until this started, having to move and being abandoned by my family." She denies working with a therapist or psychiatric prescriber routinely in the past. Pt denies suicidal thoughts presently, and states she does not recall any SI since that event in her early teens. Pt denies any concerns related to her mood prior to being given her eviction shaun ribeiro. Pt denies any current needs from our service. She was offered to consider if outpatient therapy would be beneficial given her reports of limited supports recently. She states she is not sure this would be helpful, but is willing to consider further. Pt denies SI, HI, SIB, A/V hallucinations, paranoia, joseph/hypomania, other symptoms more suggestive of a bipolar presentation, OCD, PTSD, eating disorder, and other specific psychiatric symptoms. Admission Exam Per Admitting Provider Physical Exam: Vitals signs as noted above General Appearance:Thin, Frail, no apparent distress, chronic ill appearing Head: normocephalic, Atraumatic Eyes: normal inspection, EOMI, R eye blindness Neck: supple, Trachea midline Respiratory/Chest: Normal breath sounds, CTA Cardiovascular: S1, S2, No murmur Abdomen/GI:Soft, Non tender, Bowel sounds present Extremities/Musculoskelatal:normal inspection, no edema, R hip tender, decreased ROM Neurologic/Psych:AAOX3, grossly no focal neurological deficits Skin: normal color, warm Principal Diagnosis DIZZY SPELL -RESOLVED , WEAKNESS , DEHYDRATION -RESOLVED Discharge Exam Constitutional: Elderly thin female, chronic ill appearing, laying in bed, in no acute distress Head: normocephalic, atraumatic Eyes: R eye blindness Neck: supple, trachea midline, no thyromegaly Respiratory: normal respiratory effort, lungs clear to auscultation, no wheezing, rhonchi or crackles Cardiovascular: RRR, no murmur, no edema Gastrointestinal (Abdomen): normal bowel sounds, soft, nontender, nondistended, no guarding Musculoskeletal: no cyanosis or clubbing, extremities motor strength 5/5, moves extremities spontaneously, small white papules present on patient's feet, hard and tender to palpation Neuro/ Psych: Orientation: alert, oriented x 3 and cooperative , speech fluent, moves extremities spontaneously, Eye Contact: good eye contact Hallucinations: no visual hallucinations Discharge Data Allergies Allergy/AdvReac Type Severity Reaction Status Date / Time pollen extracts Allergy Mild SEASONAL-ITCHY Verified 11/11/19 16:35 EYES,RUNNY NOSE Dust Allergy Mild ITCHY Uncoded 11/11/19 16:35 EYES,RUNNY NOSE Consultations 11/11/19 19:38 ED Decision to Admit Stat 11/11/19 23:04 Consult Case Management - Discharge Planning Routine 11/12/19 16:18 Consult Psychiatry Routine Ordered Studies 11/11/19 15:27 CT cervical spine wo con Stat FINDINGS: No fractures. No subluxation. Prevertebral soft tissues and the C1-C2 interval are intact. No pneumothorax. Generalized degenerative disc change IMPRESSION: No fractures within the cervical spine. Degenerative change CT head/brain wo con Stat Findings: The paranasal sinuses and mastoid air cells are clear. The calvarium and skull base are intact. The ventricles and sulci are within normal limits. There is no mass, hematoma, midline shift, or acute infarct. Impression: No acute intracranial abnormality. 11/11/19 21:44 MR angio head wo con Urgent FINDINGS: Visualized intracranial internal carotid arteries, distal vertebral arteries, and basilar artery are widely patent. There is no significant stenos is, occlusion, or aneurysm seen within the bilateral ACAs, MCAs, or bench examiner. IMPRESSION: No significant stenosis, occlusion, or aneurysm within the [place] of Sarah. MR brain wo con Urgent FINDINGS: There are no areas of restricted diffusion to suggest acute infarction. The midline structures are intact. The paranasal sinuses are clear. The mastoid air cells are clear. The ventricles and sulci are within normal limits for age. There is no mass, hematoma, midline shift. The major vascular flow-voids at the skull base are well maintained. IMPRESSION: No acute intracranial abnormality. Age-related atrophy and chronic small vessel change Hospital Course (1) Dizziness: BILATERAL FEET PAINFUL RASH : Possible secondary to calcium deposition? She reports she has similar calcium deposit on her anterior chest wall, on lower chin in the past, which was resolved spontaneously the lesions appear to be small whitish papules multiple involving mostly sole of the feet , tender to touch Symptom has improved in the last couple of days Continue NSAIDs and topical lidocaine gel for the pain and discomfort which is usually caused by inflammatory reaction from the calcium deposit Apply moisturizer and on this area to prevent as dry skin/skin breakdown which may cause worsening of pain and secondary infection Patient will need outpatient dermatology evaluation DIZZY SPELL symptom has resolved Feels well, denies of any feeling of lightheadedness Progressing ambulatory dysfunction - PT/OT eval - pt will need SNF/ inpt rehab - plan to d/c to [facility] Hypokalemia -Corrected electrolytes stable COPD - pulmonary status at baseline Seizure disorder - seems stable on current regimen Rheumatoid arthritis - on chronic steroid therapy Chronic anemia -Hemoglobin in 8.8 which is patient's approximate baseline Current tobacco use Nicotine patch PRN Malnutrition - BMI of 17 - Nutrition consult DVT ppx: Lovenox subcu Full code DISPOSITION : PT OT evaluation appreciated recommended skilled rehab Patient is medically stable to be transferred to [facility] Total Time Total Time Spent Total Time Spent (In Minutes): 40 Total Time Includes: Examination of the Patient, Discharge Planning, Medication Reconciliation and Communication With Other Providers Discharge Plan Discharge Items Patient Disposition: Transfer [facility] Reason For Visit: HTN URGENCY Discharge Diagnosis: DIZZY SPELL -RESOLVED , WEAKNESS , DEHYDRATION -RESOLVED Activity: Resume your previous activity Activity Comment: as tolerated, pace yourself, ask for help as needed Non-emergency contact: Primary Care Provider Call non-emergency contact if: you have any medication questions and your symptoms worsen Follow-up/Referrals: Zakia Galvez DO [Primary Care Provider] - Diet: Regular and Heart Healthy Diet Comment: Minced and moist Addtl Attending Provider Instructions: FOLLOW UP WITH FAMILY PHYSICIAN IN A WEEK For bilateral foot rash -keep area dry and clean, apply moisturizer for prevent skin crack can take Tylenol, Ibuprofen as needed for pain or discomfort. You can also apply lidocaine gel as needed. FOLLOW UP WITH DERMATOLOGY : Dr Eliot De Guzman Address: [address], [place] [address] For back pain, you can continue lidocaine patch, and for severe pain you can take oxycodone (as you were doing at home). For your blood pressure, you were started on lisinopril, take this medication daily. Follow-up with your primary care doctor for your blood pressure management. Pending Studies at Discharge: No Stand-Alone Forms: My [facility] Skilled Items Patient informed of condition?: Yes DNR: No Discharge Level of Care: Skilled Communicable Disease: No Discharge Prognosis: Stable Lines: None Urinary Catheter: No Medications and DC Order Prescriptions: New lisinopril [Zestril] 5 mg Tablet 5 mg PO QAM 30 Days Qty: 30 RF: 0 ibuprofen [Motrin IB] 200 mg tablet 200 mg PO Q8H PRN (Reason: pain) Qty: 90 RF: 0 acetaminophen [Mapap (acetaminophen)] 325 mg Tablet 650 mg PO Q4H PRN (Reason: pain) 10 Days Qty: 20 RF: 0 lidocaine HCl 2 % Jelly 4 ml EXT TID PRN (Reason: pain) 10 Days Qty: 30 RF: 0 lidocaine 5 % Adhesive Patch,Medicated 1 patch transdermal QAM PRN (Reason: pain) 5 Days Qty: 15 RF: 0 oxycodone 5 mg Tablet 5 mg PO Q4 PRN (Reason: pain (scale score 7-10)) 5 Days Qty: 10 RF: 0 Continued multivitamin Tablet 1 tab PO DAILY RF: 0 ondansetron HCl [Zofran] 4 mg Tablet 4 mg PO Q6H PRN (Reason: Nausea) RF: 0 famotidine 20 mg tablet 20 mg PO DAILY RF: 0 amitriptyline 10 mg tablet 10 mg PO HS RF: 0 levetiracetam [Keppra] 1,000 mg tablet 1,000 mg PO BID RF: 0 calcium carbonate-vitamin D3 [Calcium 600 + D(3)] 600 mg(1,500mg) -400 unit Tablet 1 tab PO DAILY RF: 0 oxycodone 5 mg Tablet 5 mg PO Q4H PRN (Reason: Pain) Qty: 10 RF: 0 baclofen 10 mg Tablet 10 mg PO TID PRN (Reason: Back Pain) RF: 0 atorvastatin 20 mg tablet 20 mg PO HS RF: 0 prednisone 5 mg tablet 5 mg PO HS RF: 0 cyanocobalamin (vitamin B-12) [Vitamin B-12] 1,000 mcg Tablet 1,000 mcg PO DAILY RF: 0 amitriptyline 25 mg tablet 25 mg PO HS RF: 0 ascorbic acid (vitamin C) 500 mg Tablet 500 mg PO DAILY RF: 0 ropinirole 0.25 mg tablet 0.25 mg PO HS RF: 0 docusate sodium 100 mg capsule 1 cap PO BID RF: 0 fluticasone propionate 50 mcg/actuation spray,suspension 2 spray Intranasal BID RF: 0 tiotropium bromide 18 mcg capsule, w/inhalation device 1 puff Inhalation DAILY RF: 0 ferrous gluconate 324 mg (37.5 mg iron) Tablet 324 mg PO DAILY RF: 0 albuterol sulfate [Ventolin HFA] 90 mcg/actuation Hfa Aerosol Inhaler 1 - 2 puff Inhalation Q4 PRN (Reason: Shortness Of Breath Or Wheezing) RF: 0 loratadine [Claritin] 10 mg Tablet 10 mg PO DAILY RF: 0 meclizine 12.5 mg tablet 12.5 mg PO TID PRN (Reason: dizziness) Qty: 10 RF: 1 menthol 5 % Adhesive Patch,Medicated 1 patch TOPICAL DAILY PRN (Reason: Back Pain) RF: 0 guaifenesin 400 mg Tablet 2 tab PO DAILY PRN (Reason: Nasal Congestion) RF: 0 Discontinued meloxicam 7.5 mg tablet 7.5 mg PO DAILY RF: 0 Discharge Orders: Discharge Order (Routine); Ordered 11/21/19 Ordered By: Gabe Wang Admission Data Admit Date/Time: 11/13/19 09:32 Attending Provider: Gabe Wang Admit Provider: Kate Dickerson Primary Care Provider: Zakia Galvez [facility]: [facility] ; [facility] ; Gabe Wang ; [facility], ; Lee Mitchell ; Manish Lemos ; Allie Blair ; Rick Yan ; Onel Amezcua ; Sang Goetz ; Merline Waite ; Kalpesh Mcdaniel ; Mindy Pompa ; Sheila Leyva ; Samreen James ; Anne Reyna ; Jefe Galvez I. ; Megan Charles ; Dimple Calix ; Radha Pepper ; Maxwell Azevedo ; Kate Dickerson.
[2019-11-21] MEDS: FAMOTIDINE 20 MG TAB PO SCH (08:33)
[2019-11-21] MEDS: MULTIVITAMIN TAB PO SCH (08:33)
[2019-11-21] MEDS: LORATADINE 10 MG TAB PO SCH (08:33)
[2019-11-21] MEDS: lisinopriL 5 MG TAB PO SCH (08:33)
[2019-11-21] MEDS: levETIRAcetam 500 MG TAB PO SCH (08:33)
[2019-11-21] MEDS: FERROUS GLUCONATE 324 MG TAB PO SCH (08:33)
[2019-11-21] MEDS: LIDOCAINE 5% 1 PATCH TD SCH (08:34)
[2019-11-21] MEDS: FLUTICASONE PROPIONATE NA SPR 16 GM BTL SCH (08:34)
[2019-11-21] MEDS: TIOTROPIUM BROMIDE 5 PUFF/90 MCG INH INH SCH (08:35)
[2019-11-21] MEDS: LIDOCAINE 2% JELLY 5 ML TUBE EXT SCH (08:43)
[2019-11-21] MEDS: DOCUSATE SODIUM 100 MG CAP PO SCH (08:43)
[2019-11-21] MEDS: KETOROLAC TROMETHAMINE 10 MG TABLET PO PRN (08:44)
[2019-11-21] MEDS: BACLOFEN 10 MG TAB PO PRN (10:31)
== END 2019-11-21 10:37 | DRG 92 ==
LOC: ED 15:18 → 2N 15:18 → SUATTDRO 21:29 → 2N 22:02 → SUATTDRO 11-13 09:32 → 2W 11-14 01:46 → 4W 11-14 16:26

== ENCOUNTER 2020-09-24 17:22 | Inpatient (IN) ==
[2020-09-24 20:39] LABS: Basophils # (auto) 0.02 K/uL (0-0.2); Basophils % (auto) 0.2 %; Eosinophils # (auto) 0.03 K/uL (0-0.5); Eosinophils % (auto) 0.3 %; Hematocrit (blood only) 38.3 % (37-47); Hemoglobin 12.6 g/dL (12.0-16.0); Immature Granulocytes # (auto) 0.03 K/uL (0.00-0.02); Immature Granulocytes % (auto) 0.3 %; Lymphocytes # (auto) 0.82 K/uL (1.2-3.4); Mean Corpuscular Hemoglobin 33.3 pg (25-34); Mean Corpuscular Hgb Conc 32.9 g/dL (32-36); Mean Corpuscular Volume 101.3 fL (80-100); Mean Platelet Volume 8.7 fL (7.4-10.4); Monocytes # (auto) 0.44 K/uL (0.11-0.59); Monocytes % (auto) 4.3 %; Neutrophils # (auto) 8.96 K/uL (1.4-6.5); Neutrophils % (auto) 86.9 %; Platelet Count 227 K/uL (130-400); RDW Coefficient of Variation 18.2 % (11.5-14.5); RDW Standard Deviation 67.6 fL (36.4-46.3); Red Blood Count 3.78 M/uL (4.2-5.4)
--- NOTE | 2020-09-24 21:00 | Emergency Department Note ---
History of Present Illness General Chief complaint: Illness Stated complaint: WEAK, DIZZY, LIGHT HEADED, NECK PAIN, NAUSEA Time Seen by Provider: 09/24/20 20:41 Source: patient Mode of arrival: ambulatory Limitations: no limitations History of Present Illness Provider complaint: Generalized weakness This is an 80-year-old female who presents to the ED with a chief complaint of generalized weakness and generalized body aches. She states that she has some nausea and dizziness as well as a headache. She is requesting some Percocet for pain. That is what she takes at home. She reports a little diarrhea. She has had decreased p.o. intake. The patient states that she has had the symptoms for a couple of days. She also reports some burning with urination. She has had a slight cough. Home Medications Medication Instructions Recorded Confirmed Type albuterol sulfate [Ventolin HFA] 1 - 2 puff INHALATION Q4 PRN 07/13/18 07/09/20 History atorvastatin 20 mg PO HS 07/13/18 07/09/20 History baclofen 10 mg PO TID PRN 07/13/18 07/09/20 History fluticasone propionate 2 spray INTRANASAL DAILY 07/13/18 07/09/20 History prednisone 5 mg PO HS 07/13/18 07/09/20 History ropinirole 0.25 mg PO HS 07/13/18 07/09/20 History amitriptyline 10 mg PO HS 11/11/19 07/09/20 History famotidine 20 mg PO DAILY 11/11/19 07/09/20 History levetiracetam [Keppra] 1,000 mg PO BID 11/11/19 07/09/20 History ibuprofen [Motrin IB] 200 mg PO Q8H PRN #90 tab 11/17/19 07/09/20 Rx Spiriva Respimat 1 inh INHALATION DAILY 07/09/20 07/09/20 History carboxymethylcellulose sodium 1 drp OPHTHALMIC (EYE) TID 07/09/20 07/09/20 History lidocaine 1 patch TOPICAL DIRECTED 07/09/20 07/09/20 History lisinopril 5 mg PO DAILY 07/09/20 07/09/20 History magnesium hydroxide [Milk of 400 mg PO DAILY PRN 07/09/20 07/09/20 History Magnesia] oxycodone 5 mg PO Q6H PRN 07/09/20 07/09/20 History Allergies Allergy/AdvReac Type Severity Reaction Status Date / Time pollen extracts Allergy Mild SEASONAL-ITCHY Verified 07/09/20 06:22 EYES,RUNNY NOSE Past Med/Surg History Medical History (Updated 09/24/20 @ 22:55 by Ad Rogel DO) Allergic rhinitis Anemia of chronic disease Anxiety Blind right eye COPD (chronic obstructive pulmonary disease) DNR (do not resuscitate) Hyponatremia Restless leg syndrome Rheumatoid arthritis Seizure Seizure disorder Severe protein-calorie malnutrition Tobacco use disorder Surgical History Status post appendectomy Status post cataract extraction Status post exploratory laparotomy "x3 for adhesions" Status post hysterectomy Status post ovarian cystectomy Status post tonsillectomy Status post tubal ligation Family History Other Family history non-contributory Social History Smoking Status: Current every day smoker Tobacco Type: Cigarettes Cigarettes Per Day: 20; Number of Years Since Quit: 29; Second Hand Exposure: Yes; Hx Alcohol Use: No Hx Substance Use: No Preferred Language: Cymraes Communication Ability: Effective Visual Impairment: Blindness Mica 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 Layer Required: No Beliefs That Will Affect Care: Christianity marital status: / Current Living Situation: Alone Current Living Situation Comment: in apartment Feels Safe at Home: Yes Assistive Devices: None Review of Systems A total of 10 systems reviewed and were otherwise negative Physical Exam Vital Signs Vital Signs - 24 hr 09/24/20 18:04 09/24/20 20:00 09/24/20 21:00 Temperature 37 C Temperature Source Oral Pulse Rate 86 84 Pulse Rate [Finger] 83 Pulse Rate from SpO2 Sensor 85 Pulse Rhythm [Finger] Regular Respiratory Rate 18 18 21 Respiratory Effort / Characteristics Non-Labored Spontaneous Respiratory Depth Normal Respiratory Pattern Regular Blood Pressure 146/67 H 143/62 H Blood Pressure [Right Arm] 144/58 H Blood Pressure Mean 93 109 Blood Pressure Mean [Right Arm] 86 Blood Pressure Position [Right Arm] Lying Pulse Oximetry 93 90 93 Oxygen Delivery Method Room Air Room Air Nasal Cannula Oxygen Flow Rate 2 Sepsis Recent Fever Within 48 Hours No Sepsis New/Unexplained Change in Mental Status No Sepsis Action Taken by Nursing No Action Required Oxygen Flow Rate - Titration Pulse Oximetry Post Tiitration 09/24/20 21:02 09/24/20 22:00 Temperature Temperature Source Pulse Rate 85 Pulse Rate [Finger] Pulse Rate from SpO2 Sensor Pulse Rhythm [Finger] Respiratory Rate 20 Respiratory Effort / Characteristics Respiratory Depth Respiratory Pattern Blood Pressure 155/65 H Blood Pressure [Right Arm] Blood Pressure Mean 112 Blood Pressure Mean [Right Arm] Blood Pressure Position [Right Arm] Pulse Oximetry 89 L 93 Oxygen Delivery Method Room Air Nasal Cannula Oxygen Flow Rate 2 Sepsis Recent Fever Within 48 Hours Sepsis New/Unexplained Change in Mental Status Sepsis Action Taken by Nursing Oxygen Flow Rate - Titration 2 Pulse Oximetry Post Tiitration 91 CONSTITUTIONAL/VITAL SIGNS: Reviewed / noted above. GENERAL: Non-toxic in appearance. Generalized weakness INTEGUMENTARY: Warm, dry, and [place]. HEAD: Normocephalic. EYES: without scleral icterus or trauma. ENT/OROPHARYNX: clear and moist. LYMPHADENOPATHY/NECK: Is supple without lymphadenopathy or meningismus. RESPIRATORY: Lungs clear and equal. CARDIOVASCULAR: Regular rate and rhythm. GI/ABDOMEN: Soft and nontender. No organomegaly or pulsatile mass. No rebound or guarding. Normal bowel sounds. EXTREMITIES: Warm and well perfused. BACK: No CVA tenderness. NEUROLOGICAL: Intact without focal deficits. PSYCHIATRIC: normal affect. MUSCULOSKELETAL: Normally developed with good muscle tone. TRIAGE NURSING DOCUMENTATION REVIEWED. Medical Decision Making Differential Diagnosis Differential includes acute coronary syndrome, myocardial infarction, CVA, TIA, anemia, infection, pneumonia, UTI, pyelonephritis, poor nutrition, dehydration, electrolyte disturbance,hypoglycemia. Medical Records Attestation: I reviewed the patient's medical records. Home Medications Current Medication List: was personally reviewed by me Laboratory Data Attestation: I reviewed the patient's lab results. Result diagrams: 09/24/20 20:30 09/24/20 20:30 Lab Results 09/24/20 09/24/20 09/24/20 Range/Units 20:30 20:30 20:54 WBC 10.30 (4.8-10.8) K/uL RBC 3.78 L (4.2-5.4) M/uL Hgb 12.6 (12.0-16.0) g/dL Hct 38.3 (37-47) % MCV 101.3 H (80-100) fL MCH 33.3 (25-34) pg MCHC 32.9 (32-36) g/dL RDW Std Deviation 67.6 H (36.4-46.3) fL RDW Coeff of Mandeep 18.2 H (11.5-14.5) % Plt Count 227 (130-400) K/uL MPV 8.7 (7.4-10.4) fL Immature Gran % (Auto) 0.3 % Neut % (Auto) 86.9 % Lymph % (Auto) 8.0 % [place] % (Auto) 4.3 % Eos % (Auto) 0.3 % Baso % (Auto) 0.2 % Neut # (Auto) 8.96 H (1.4-6.5) K/uL Lymph # (Auto) 0.82 L (1.2-3.4) K/uL [place] # (Auto) 0.44 (0.11-0.59) K/uL Eos # (Auto) 0.03 (0-0.5) K/uL Baso # (Auto) 0.02 (0-0.2) K/uL Immature Gran # (Auto) 0.03 H (0.00-0.02) K/uL Sodium 137 (136-145) mmol/L Potassium 3.9 (3.5-5.1) mmol/L Chloride 107 (98-107) mmol/L Carbon Dioxide 23 (21-32) mmol/L Anion Gap 6.0 (3-11) BUN 18 (7-18) mg/dl Creatinine 0.67 (0.6-1.2) mg/dl Est Cr Clr Drug Dosing 40.1 ml/min Est GFR ( Amer) 95.5 Est GFR (Non-Af Amer) 82.4 BUN/Creatinine Ratio 26.3 H (10-20) Glucose 79 (70-99) mg/dl Calcium 8.5 (8.5-10.1) mg/dl Total Bilirubin 0.8 (0.2-1) mg/dl AST 20 (15-37) U/L ALT 12 (12-78) U/L Alkaline Phosphatase 68 (45-117) U/L Troponin I < 0.015 Cancelled (0-0.045) ng/ml Total Protein 7.3 (6.4-8.2) gm/dl Albumin 3.3 L (3.4-5.0) gm/dl Globulin 4.0 (2.5-4.0) gm/dl Albumin/Globulin Ratio 0.8 L (0.9-2) Urine Color Urine Appearance (Clear) Urine pH (4.5-7.5) Ur Specific [place] (1.000-1.030) Urine Protein (Negative) Urine Glucose (UA) (Negative) Urine Ketones (Negative) Urine Blood (Negative) Urine Nitrite (Negative) Urine Bilirubin (Negative) Urine Urobilinogen (Negative) Ur Leukocyte Esterase (Negative) 09/24/20 Range/Units 21:02 WBC (4.8-10.8) K/uL RBC (4.2-5.4) M/uL Hgb (12.0-16.0) g/dL Hct (37-47) % MCV (80-100) fL MCH (25-34) pg MCHC (32-36) g/dL RDW Std Deviation (36.4-46.3) fL RDW Coeff of Mandeep (11.5-14.5) % Plt Count (130-400) K/uL MPV (7.4-10.4) fL Immature Gran % (Auto) % Neut % (Auto) % Lymph % (Auto) % [place] % (Auto) % Eos % (Auto) % Baso % (Auto) % Neut # (Auto) (1.4-6.5) K/uL Lymph # (Auto) (1.2-3.4) K/uL [place] # (Auto) (0.11-0.59) K/uL Eos # (Auto) (0-0.5) K/uL Baso # (Auto) (0-0.2) K/uL Immature Gran # (Auto) (0.00-0.02) K/uL Sodium (136-145) mmol/L Potassium (3.5-5.1) mmol/L Chloride (98-107) mmol/L Carbon Dioxide (21-32) mmol/L Anion Gap (3-11) BUN (7-18) mg/dl Creatinine (0.6-1.2) mg/dl Est Cr Clr Drug Dosing ml/min Est GFR ( Amer) Est GFR (Non-Af Amer) BUN/Creatinine Ratio (10-20) Glucose (70-99) mg/dl Calcium (8.5-10.1) mg/dl Total Bilirubin (0.2-1) mg/dl AST (15-37) U/L ALT (12-78) U/L Alkaline Phosphatase (45-117) U/L Troponin I (0-0.045) ng/ml Total Protein (6.4-8.2) gm/dl Albumin (3.4-5.0) gm/dl Globulin (2.5-4.0) gm/dl Albumin/Globulin Ratio (0.9-2) Urine Color Yellow Urine Appearance Clear (Clear) Urine pH 7.5 (4.5-7.5) Ur Specific [place] 1.013 (1.000-1.030) Urine Protein Negative (Negative) Urine Glucose (UA) Negative (Negative) Urine Ketones 1+ H (Negative) Urine Blood Negative (Negative) Urine Nitrite Negative (Negative) Urine Bilirubin Negative (Negative) Urine Urobilinogen Negative (Negative) Ur Leukocyte Esterase Negative (Negative) Imaging Data Attestation: I personally reviewed and interpreted this imaging study as follows: My Impression: Chest x-ray: Per my review there are some chronic appearing interstitial changes but no acute infiltrate or pneumothorax. Radiologist's Impression: SINGLE VIEW CHEST CLINICAL HISTORY: Atypical chest pain. FINDINGS: An AP, portable, upright chest radiograph is compared to study dated 11/11/2019 and correlated with chest CT dated 03/23/2017. The examination is deg raded by portable technique and patient rotation. The cardiomediastinal silhouette is unremarkable noting atherosclerotic calcification of the thoracic aorta. Emphysema and chronic interstitial thickening is similar to previous. Airspace opacities are present at both lung bases, left greater than right. No large pleural effusion or pneumothorax is seen. The skeletal structures are osteopenic. The bony thorax is grossly intact. Degenerative change is noted in the shoulders and thoracic spine. IMPRESSION: 1. Emphysema. 2. There are left greater than right basilar airspace opacities. This could represent scarring/atelectasis versus an infectious/inflammatory pneumonitis. Clinical correlation will be required. ECG Data Attestation: I personally reviewed and interpreted this ECG as follows: Indication: + weakness Rate (beats per minute): 87 Rhythm: + normal sinus ECG ST segments: no ST elevation ECG Findings: no PVCs MDM Narrative Patient presents with multiple complaints including generalized weakness generalized discomfort and nausea as well as some burning with urination and a slight cough. Her vital signs are very low hypertension had a pulse ox of 90% on room air. She does have some COPD history. The patient's CBC was normal. EKG shows normal sinus rhythm. Complete metabolic panel was normal. Troponin was negative. Urine showed 1+ ketones. Chest x-ray as noted above. Radiologist report left greater than right airspace opacities could represent scarring/atelectasis versus an infectious process. Clinically the patient is not felt to have pneumonia. Her white blood cell count is normal. She reports only a slight cough that started today. The patient was given IV Rocephin and IV Zithromax. Her oxygen saturations did drop to 89% on room air. Previously she had been in the mid to high 90s a couple months ago. A Covid test will be sent. The patient will be seen by the hospitalist for further inpatient evaluation and care. Impression & Plan Generalized muscle weakness, Pneumonia, Nausea, Anorexia Discharge Plan Visit Data Chief Complaint: Illness Stated Complaint: WEAK, DIZZY, LIGHT HEADED, NECK PAIN, NAUSEA ED Provider: Ad Rogel Discharge Problem: Generalized muscle weakness, Pneumonia, Nausea, Anorexia Patient Disposition: Being Evaluated by Hospitalist Forms Stand Alone Forms: [facility] Prescriptions Prescriptions: No Action famotidine 20 mg tablet 20 mg PO DAILY RF: 0 amitriptyline 10 mg tablet 10 mg PO HS RF: 0 levetiracetam [Keppra] 1,000 mg tablet 1,000 mg PO BID RF: 0 ibuprofen [Motrin IB] 200 mg tablet 200 mg PO Q8H PRN (Reason: pain) Qty: 90 RF: 0 baclofen 10 mg Tablet 10 mg PO TID PRN (Reason: Back Pain) RF: 0 atorvastatin 20 mg tablet 20 mg PO HS RF: 0 prednisone 5 mg tablet 5 mg PO HS RF: 0 ropinirole 0.25 mg tablet 0.25 mg PO HS RF: 0 fluticasone propionate 50 mcg/actuation spray,suspension 2 spray Intranasal DAILY RF: 0 albuterol sulfate [Ventolin HFA] 90 mcg/actuation Hfa Aerosol Inhaler 1 - 2 puff Inhalation Q4 PRN (Reason: Shortness Of Breath Or Wheezing) RF: 0 Spiriva Respimat 1.25 mcg/actuation mist 1 inh INHALATION DAILY RF: 0 magnesium hydroxide [Milk of Magnesia] 400 mg/5 mL Suspension 400 mg PO DAILY PRN (Reason: Constipation) RF: 0 lidocaine 5 % Adhesive Patch,Medicated 1 patch TOPICAL DIRECTED RF: 0 lisinopril 5 mg Tablet 5 mg PO DAILY RF: 0 carboxymethylcellulose sodium 1 % Drops, Liquid Gel 1 drp OPHTHALMIC (EYE) TID RF: 0 oxycodone 5 mg tablet 5 mg PO Q6H PRN (Reason: Pain) RF: 0 Referrals Referrals: Zakia Galvez DO [Primary Care Provider] - Discharge Problem: Pneumonia Qualifiers: Pneumonia type: due to unspecified organism Laterality: bilateral Lung location: lower lobe of lung Qualified Code(s): J18.9 - Pneumonia, unspecified organism
[2020-09-24 21:04] LABS: Alanine Aminotransferase 12 U/L (12-78); Albumin Level 3.3 gm/dl (3.4-5.0); Aspartate Aminotransferase 20 U/L (15-37); BUN Creatinine Ratio 26.3 (10-20); Blood Urea Nitrogen 18 mg/dl (7-18); Calcium 8.5 mg/dl (8.5-10.1); Carbon Dioxide 23 mmol/L (21-32); Chloride 107 mmol/L (98-107); Creatinine Clr Calc Pharmacy 40.1 ml/min; Est GFR (African American) 95.5; Est GFR (Non-African American) 82.4; Glucose 79 mg/dl (70-99); Potassium 3.9 mmol/L (3.5-5.1); Sodium 137 mmol/L (136-145)
--- NOTE | 2020-09-24 21:04 | XRay Report ---
SINGLE VIEW CHEST CLINICAL HISTORY: Atypical chest pain. FINDINGS: An AP, portable, upright chest radiograph is compared to study dated 11/11/2019 and correlate d with chest CT dated 03/23/2017. The examination is degraded by portable technique and patient rotati on. The cardiomediastinal silhouette is unremarkable noting atherosclerotic calcification of the tho racic aorta. Emphysema and chronic interstitial thickening is similar to previous. Airspace opacities are present at both lung bases, left greater than right. No large pleural effusion or pneumothorax i s seen. The skeletal structures are osteopenic. The bony thorax is grossly intact. Degenerative jim e is noted in the shoulders and thoracic spine. IMPRESSION: 1. Emphysema. 2. There are left greater than right basilar airspace opacities. This could represent scarring/atelec tasis versus an infectious/inflammatory pneumonitis. Clinical correlation will be required. ACT 112: Negative or not required by law. Electronically signed by: Zeb Noble M.D. 09/24/2020 9:02 PM
[2020-09-24 21:06] LABS: Albumin Globulin Ratio 0.8 (0.9-2); Alkaline Phosphatase 68 U/L (45-117); Bilirubin,Total 0.8 mg/dl (0.2-1); Total Protein 7.3 gm/dl (6.4-8.2)
[2020-09-24 21:19] LABS: Troponin I < 0.015 ng/ml (0-0.045)
[2020-09-24 21:21] LABS: Appearance Urine Clear (Clear); Bilirubin Urine Negative (Negative); Blood Urine Negative (Negative); Color Urine Yellow; Glucose Urine UA Negative (Negative); Ketones Urine 1+ (Negative); Leukocyte Esterase Urine Negative (Negative); Nitrite Urine Negative (Negative); Protein Urine Negative (Negative); Specific Gravity Urine 1.013 (1.000-1.030); Urobilinogen Urine Negative (Negative); pH Urine 7.5 (4.5-7.5)
[2020-09-24] MEDS ORDERED: AZITHROMYCIN 250 MG TAB PO ONE (22:41)
[2020-09-24] MEDS ORDERED: AZITHROMYCIN 500 MG in DEXTROSE 5% 250 ML IV ONE (22:50)
[2020-09-24] MEDS ORDERED: cefTRIAXone SODIUM 1,000 MG/50 ML BAG IV STA (22:50)
[2020-09-24] MEDS ORDERED: ALBUT/IPRATROP 3MG/0.5MG NEB 3 ML VIAL NEB STA (22:52)
[2020-09-24] MEDS ORDERED: methylPREDNISolone 40 MG in SYRINGE 0 ML IV STA (22:53)
[2020-09-24] MEDS ORDERED: LACTATED RINGER'S 1,000 ML IV STA (23:05)
[2020-09-24 23:28] LABS: Magnesium 2.8 mg/dl (1.8-2.4)
[2020-09-24 23:33] LABS: Allen Test POS (Pos); Base Excess ABG -3.8 mEq/L (-9-1.8); HCO3 ABG 21 mmol/L (19-24); Oxygen Saturation ABG 95.9 % (90-95); PCO2 ABG 35 mmHg (35-46); PO2 ABG 80 mmHg (80-95); pH ABG 7.39 (7.35-7.45)
[2020-09-25 00:12] LABS: Partial Thromboplastin Ratio 1.1; Partial Thromboplastin Time 31.4 Seconds (21.0-31.0)
--- NOTE | 2020-09-25 00:34 | History & Physical Report ---
Date of Service September 25, 2020 Assessment & Plan (1) Acute hypoxemic respiratory failure: Secondary to COPD exacerbation secondary to CAP Immunocompromised patient, hx rheumatoid arthritis on chronic steroid therapy No sepsis for now Situational hypertension seizure disorder, stable on regimen chronic anemia, hemoglobin better than baseline likely secondary to hemoconcentration Ongoing tobacco abuse Medical telemetry Supplemental O2 Solu-Medrol 1 dose now followed by 4-day prednisone course then revert to usual daily prednisone dose for RA Cultures, check lactic acid Ceftriaxone and doxycycline IVF PT/OT eval Nicotine patch PRN DVT phylaxis. Heparin subcu DNR Text document was generated using [employer] voice recognition software. It may contain grammatical or spelling errors. Kindly contact undersigned for clarification of any documentation item in question. History of Present Illness Chief Complaint: Weakness, cough, shortness of breath Primary Care Provider: Zakia Galvez, History obtained from patient and records. Medical history significant for COPD, ongoing tobacco abuse, hyperlipidemia, seizure disorder, rheumatoid arthritis on chronic steroid therapy, chronic anemia (baseline hemoglobin of 9-10), restless legs syndrome, aspiration risk as per records. Recent confinement November 2019 for dizziness. Few days history of hacking cough symptoms associated with generalized weakness, body aches, nausea, transient diarrhea. Denies aspiration. Denies chest pain. No known recent COVID-19 contacts. At the ER, O2 sats 80s on room air. Patient given Ceftriaxone and Azithromycin for pneumonia. MEDICAL HISTORY: As above. SURGERIES: Appendectomy, cataract surgery, exploratory laparotomy, hysterectomy, gynecologic procedures, tonsillectomy, hip fracture surgery FAMILY HISTORY: Diabetes. Heart disease, stroke PERSONAL AND SOCIAL HISTORY: 6 cigarettes daily. No chronic intake of alcohol. 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 Lives alone. Allergies Allergy/AdvReac Type Severity Reaction Status Date / Time pollen extracts Allergy Mild SEASONAL-ITCHY Verified 09/24/20 23:02 EYES,RUNNY NOSE Home Medications Medication Instructions Recorded Confirmed Type albuterol sulfate [Ventolin HFA] 1 - 2 puff INHALATION Q4 PRN 07/13/18 09/24/20 History atorvastatin 20 mg PO HS 07/13/18 09/24/20 History baclofen 10 mg PO TID PRN 07/13/18 09/24/20 History fluticasone propionate 2 spray INTRANASAL DAILY 07/13/18 09/24/20 History prednisone 5 mg PO HS 07/13/18 09/24/20 History ropinirole 0.25 mg PO HS 07/13/18 09/24/20 History amitriptyline 10 mg PO HS 11/11/19 09/24/20 History famotidine 20 mg PO DAILY 11/11/19 09/24/20 History ibuprofen [Motrin IB] 200 mg PO Q8H PRN #90 tab 11/17/19 09/24/20 Rx Spiriva Respimat 1 inh INHALATION DAILY 07/09/20 09/24/20 History magnesium hydroxide [Milk of 400 mg PO DAILY PRN 07/09/20 09/24/20 History Magnesia] oxycodone 5 mg PO Q6H PRN 07/09/20 09/24/20 History levetiracetam 250 mg PO Q12H 09/24/20 09/24/20 History Past Med/Surg History Medical History (Updated 09/25/20 @ 09:59 by Lee Mitchell MD) Allergic rhinitis Anemia of chronic disease Anxiety Blind right eye COPD (chronic obstructive pulmonary disease) DNR (do not resuscitate) Hyponatremia Restless leg syndrome Rheumatoid arthritis Seizure Seizure disorder Severe protein-calorie malnutrition Tobacco use disorder Surgical History Status post appendectomy Status post cataract extraction Status post exploratory laparotomy "x3 for adhesions" Status post hysterectomy Status post ovarian cystectomy Status post tonsillectomy Status post tubal ligation Family History Other Family history non-contributory Social History Smoking Status: Current every day smoker Tobacco Type: Cigarettes Cigarettes Per Day: 20; Number of Years Since Quit: 29; Second Hand Exposure: Yes; Hx Alcohol Use: No Hx Substance Use: No Preferred Language: [place] Communication Ability: Effective Visual Impairment: Blindness Room Service [place] Required: No Beliefs That Will Affect Care: None marital status: / Current Living Situation: Alone Current Living Situation Comment: in apartment Other Information That Helps Us Care for You: No Feels Safe at Home: Yes Assistive Devices: Denture - Upper, Denture - Lower, Glasses, Oxygen - Continuous and Walker Review of Systems Review of Systems: As per HPI, all 10 systems reviewed, all other ROS negative Physical Exam Physical Exam: GENERAL: Slightly uncomfortable, underweight, no respiratory distress SKIN: Pallor, warm HEENT: Pale palpebral conjunctivae, no ptosis, dry buccal mucosa, nasal cannula in place NECK : Supple, no tenderness CHEST : Decreased breath sounds , no tenderness HEART : RRR, no obvious murmurs ABDOMEN: Soft, nontender EXTREMITIES : No LE swelling/tenderness, no other conspicuous deformities noted NEUROLOGIC : Coherent, no facial asymmetry, no other gross focality Results & Data Results & Data ([facility]) Vital Signs (Past 12 Hours) Vital Signs Temp Pulse Pulse Resp BP BP Pulse Ox 09/24/20 23:30 91 H 21 147/61 H 95 09/24/20 23:10 91 H 22 92 09/24/20 23:00 87 21 155/66 H 09/24/20 22:30 88 20 139/63 95 09/24/20 22:00 85 20 155/65 H 93 09/24/20 21:02 89 L 09/24/20 21:00 84 21 143/62 H 93 09/24/20 20:00 83 18 144/58 H 90 09/24/20 18:04 37 C 86 18 146/67 H 93 Laboratory Results Laboratory Results WBC 10.30 K/uL (4.8-10.8) 09/24/20 20:30 RBC 3.78 M/uL (4.2-5.4) L 09/24/20 20:30 Hgb 12.6 g/dL (12.0-16.0) 09/24/20 20:30 Hct 38.3 % (37-47) 09/24/20 20:30 MCV 101.3 fL (80-100) H 09/24/20 20:30 MCH 33.3 pg (25-34) 09/24/20 20:30 MCHC 32.9 g/dL (32-36) 09/24/20 20:30 RDW Std Deviation 67.6 fL (36.4-46.3) H 09/24/20 20:30 RDW Coeff of Mandeep 18.2 % (11.5-14.5) H 09/24/20 20:30 Plt Count 227 K/uL (130-400) 09/24/20 20:30 MPV 8.7 fL (7.4-10.4) 09/24/20 20:30 Immature Gran % (Auto) 0.3 % 09/24/20 20:30 Neut % (Auto) 86.9 % 09/24/20 20:30 Lymph % (Auto) 8.0 % 09/24/20 20:30 [place] % (Auto) 4.3 % 09/24/20 20:30 Eos % (Auto) 0.3 % 09/24/20 20:30 Baso % (Auto) 0.2 % 09/24/20 20:30 Neut # (Auto) 8.96 K/uL (1.4-6.5) H 09/24/20 20:30 Lymph # (Auto) 0.82 K/uL (1.2-3.4) L 09/24/20 20:30 [place] # (Auto) 0.44 K/uL (0.11-0.59) 09/24/20 20:30 Eos # (Auto) 0.03 K/uL (0-0.5) 09/24/20 20:30 Baso # (Auto) 0.02 K/uL (0-0.2) 09/24/20 20:30 Immature Gran # (Auto) 0.03 K/uL (0.00-0.02) H 09/24/20 20:30 APTT 31.4 Seconds (21.0-31.0) H 09/24/20 23:21 PTT Ratio 1.1 09/24/20 23:21 ABG pH 7.39 (7.35-7.45) 09/24/20 23:21 ABG pCO2 35 mmHg (35-46) 09/24/20 23:21 ABG pO2 80 mmHg (80-95) 09/24/20 23:21 ABG HCO3 21 mmol/L (19-24) 09/24/20 23:21 ABG O2 Saturation 95.9 % (90-95) H 09/24/20 23:21 ABG Base Excess -3.8 mEq/L (-9-1.8) 09/24/20 23:21 Alex Test POS (Pos) 09/24/20 23:21 Barometric Pressure 742.4 mm/Hg 09/24/20 23:21 Oxygen Given 2 L 09/24/20 23:21 Sodium 137 mmol/L (136-145) 09/24/20 20:30 Potassium 3.9 mmol/L (3.5-5.1) 09/24/20 20:30 Chloride 107 mmol/L (98-107) 09/24/20 20:30 Carbon Dioxide 23 mmol/L (21-32) 09/24/20 20:30 Anion Gap 6.0 (3-11) 09/24/20 20:30 BUN 18 mg/dl (7-18) 09/24/20 20:30 Creatinine 0.67 mg/dl (0.6-1.2) 09/24/20 20:30 Est Cr Clr Drug Dosing 40.1 ml/min 09/24/20 20:30 Est GFR ( Amer) 95.5 09/24/20 20:30 Est GFR (Non-Af Amer) 82.4 09/24/20 20:30 BUN/Creatinine Ratio 26.3 (10-20) H 09/24/20 20:30 Glucose 79 mg/dl (70-99) 09/24/20 20:30 Lactate 0.5 mmol/L (0.4-2.0) 09/24/20 23:21 Calcium 8.5 mg/dl (8.5-10.1) 09/24/20 20:30 Magnesium 2.8 mg/dl (1.8-2.4) H 09/24/20 20:30 Total Bilirubin 0.8 mg/dl (0.2-1) 09/24/20 20:30 AST 20 U/L (15-37) 09/24/20 20:30 ALT 12 U/L (12-78) 09/24/20 20:30 Alkaline Phosphatase 68 U/L (45-117) 09/24/20 20:30 Troponin I Cancelled 09/24/20 20:54 Total Protein 7.3 gm/dl (6.4-8.2) 09/24/20 20:30 Albumin 3.3 gm/dl (3.4-5.0) L 09/24/20 20:30 Globulin 4.0 gm/dl (2.5-4.0) 09/24/20 20:30 Albumin/Globulin Ratio 0.8 (0.9-2) L 09/24/20 20:30 Urine Color Yellow 09/24/20 21:02 Urine Appearance Clear (Clear) 09/24/20 21:02 Urine pH 7.5 (4.5-7.5) 09/24/20 21:02 Ur Specific [place] 1.013 (1.000-1.030) 09/24/20 21:02 Urine Protein Negative (Negative) 09/24/20 21:02 Urine Glucose (UA) Negative (Negative) 09/24/20 21: Urine Ketones 1+ (Negative) H 09/24/20 21: Urine Blood Negative (Negative) 09/24/20 21: Urine Nitrite Negative (Negative) 09/24/20 21: Urine Bilirubin Negative (Negative) 09/24/20 21: Urine Urobilinogen Negative (Negative) 09/24/20 21: Ur Leukocyte Esterase Negative (Negative) 09/24/20 21:02 [facility] 09/24/20 23:00 SARS-CoV-2, RNA, NAAT NEGATIVE (NEGATIVE) 09/24/20 23:00 Diagnostic Findings Chest x-ray : 1. Emphysema. 2. There are left greater than right basilar airspace opacities. This could represent scarring/atelectasis versus an infectious/inflammatory pneumonitis. Clinical correlation will be required. EKG as per my interpretation : Rate 85, NSR, LAD, LAFB, no ischemia
[2020-09-25] MEDS ORDERED: PROMETHAZINE HCL 6.25 MG in SODIUM CHLORIDE 0.9% 50 ML IV PRN (02:13)
[2020-09-25] MEDS ORDERED: ACETAMINOPHEN 325 MG TAB PO PRN (02:13)
[2020-09-25] MEDS ORDERED: DOXYCYCLINE HYCLATE 100 MG in DEXTROSE 5% 100 ML IV STA (02:13)
[2020-09-25] MEDS: oxyCODONE HCL IR 5 MG TAB (IMMEDIATE RELEASE) PO PRN ×3 (03:39→21:02)
[2020-09-25] MEDS: BACLOFEN 10 MG TAB PO PRN ×2 (03:39→15:23)
[2020-09-25] MEDS: levETIRAcetam 250 MG TAB PO SCH ×3 (03:40→21:02)
[2020-09-25] MEDS ORDERED: XOPENEX/ATROVENT 1.25mg/0.5MG NEB COMBO NEB SCH (07:00)
[2020-09-25] MEDS: IPRATROPIUM BROMIDE NEB SOLN 0.02% 2.5 ML VIAL INH SCH ×3 (07:14→20:18)
[2020-09-25] MEDS: LEVALBUTEROL 1.25MG/0.5ML NEB INH SCH ×3 (07:14→20:18)
[2020-09-25] MEDS: HEPARIN SOD 5,000 UNIT/0.5 ML VIAL SQ SCH ×3 (07:18→21:06)
--- NOTE | 2020-09-25 07:32 | Hospitalist Progress Note ---
Date of Service September 25, 2020 Assessment & Plan (1) Acute hypoxemic respiratory failure: Secondary to COPD exacerbation secondary to CAP Immunocompromised patient, hx rheumatoid arthritis on chronic steroid therapy No sepsis for now Situational hypertension seizure disorder, stable on regimen chronic anemia, hemoglobin better than baseline likely secondary to hemoconcentration Ongoing tobacco abuse Medical telemetry Supplemental O2 Solu-Medrol 1 dose now followed by 4-day prednisone course then revert to usual daily prednisone dose for RA Cultures, check lactic acid Ceftriaxone and doxycycline IVF PT/OT eval Nicotine patch PRN DVT phylaxis. Heparin subcu DNR Admission and Anticipated Discharge Date Admission Date: September 25, 2020 Subjective Pt is laying in bed in NAD. Reports she is feeling much better now. Shortness of breath and cough much improved. No chest pain. No abd. pain, nausea or vomiting. Review of Systems Review of Systems: All systems reviewed & are unremarkable except as noted in HPI & below Constitutional: no fever and no chills Respiratory: no cough and no dyspnea Cardiovascular: no chest pain and no palpitations Gastrointestinal: no abdominal pain, no nausea and no vomiting Physical Exam Physical Exam: GENERAL: thin elderly female sitting up in bed, in no respiratory distress HEENT: NC, pale palpebral conjunctivae, no ptosis, dry buccal mucosa NECK : Supple, no tenderness CHEST : Decreased breath sounds , no tenderness HEART : RRR, no obvious murmurs ABDOMEN: Soft, nontender EXTREMITIES : No LE swelling/tenderness, no other conspicuous deformities noted SKIN: Pallor, warm NEUROLOGIC : alert and oriented x3, no facial asymmetry,speech fluent Results & Data Results & Data ([facility]) Vital Signs (Past 12 Hours) Vital Signs Pulse Pulse Resp BP BP Pulse Ox 09/25/20 07:25 82 09/25/20 07:20 78 16 95 09/25/20 01:00 90 20 143/75 H 100 09/25/20 00:30 85 21 142/61 H 96 09/25/20 00:00 87 22 135/60 95 09/24/20 23:30 91 H 21 147/61 H 95 09/24/20 23:10 91 H 22 92 09/24/20 23:00 87 21 155/66 H 09/24/20 22:30 88 20 139/63 95 09/24/20 22:00 85 20 155/65 H 93 09/24/20 21:02 89 L 09/24/20 21:00 84 21 143/62 H 93 09/24/20 20:00 83 18 144/58 H 90
[2020-09-25] MEDS: FAMOTIDINE 20 MG TAB PO SCH (08:35)
[2020-09-25] MEDS: FLUTICASONE PROPIONATE NA SPR 16 GM BTL NAE SCH (08:35)
[2020-09-25] MEDS: predniSONE 20 MG TAB PO SCH (08:36)
[2020-09-25 09:09] LABS: BUN Creatinine Ratio 34.1 (10-20); Calcium 7.8 mg/dl (8.5-10.1); Creatinine Clr Calc Pharmacy 45.6 ml/min; Est GFR (African American) 99.6; Potassium 3.8 mmol/L (3.5-5.1)
[2020-09-25 09:36] LABS: Hemoglobin 10.1 g/dL (12.0-16.0); Mean Corpuscular Hemoglobin 33.4 pg (25-34); Mean Corpuscular Hgb Conc 33.7 g/dL (32-36); Mean Corpuscular Volume 99.3 fL (80-100); RDW Coefficient of Variation 18.1 % (11.5-14.5); RDW Standard Deviation 65.7 fL (36.4-46.3); Red Blood Count 3.02 M/uL (4.2-5.4); White Blood Count 6.73 K/uL (4.8-10.8)
[2020-09-25 10:01] LABS: Basophils # (auto) 0.01 K/uL (0-0.2); Basophils % (auto) 0.1 %; Eosinophils # (auto) 0.02 K/uL (0-0.5); Eosinophils % (auto) 0.3 %; Immature Granulocytes # (auto) 0.02 K/uL (0.00-0.02); Immature Granulocytes % (auto) 0.3 %; Lymphocytes # (auto) 0.39 K/uL (1.2-3.4); Lymphocytes % (auto) 5.8 %; Mean Platelet Volume 9.5 fL (7.4-10.4); Monocytes # (auto) 0.03 K/uL (0.11-0.59); Monocytes % (auto) 0.4 %; Neutrophils # (auto) 6.26 K/uL (1.4-6.5); Neutrophils % (auto) 93.1 %; Platelet Count 220 K/uL (130-400)
[2020-09-25] MEDS: ATORVASTATIN 20 MG TAB PO SCH (21:02)
[2020-09-25] MEDS: AMITRIPTYLINE HCL 10 MG TAB PO SCH (21:02)
[2020-09-25] MEDS: DOXYCYCLINE HYCLATE 100 MG CAP PO SCH (21:02)
[2020-09-25] MEDS: rOPINIRole HCL 0.25 MG TABLET PO SCH (21:08)
[2020-09-25] MEDS: cefTRIAXone SODIUM 1,000 MG in DEXTROSE 5% 50 ML IV SCH (22:13)
--- NOTE | 2020-09-25 23:05 | Electrocardiogram Report ---
Test Reason : Blood Pressure : / mmHG Vent. Rate : 087 BPM Atrial Rate : 087 BPM P-R Int : 130 ms QRS Dur : 088 ms QT Int : 378 ms P-R-T Axes : 079 -35 078 degrees QTc Int : 454 ms Normal sinus rhythm Left axis deviation Abnormal ECG When compared with ECG of 09-JUL-2020 11:34, Vent. rate has increased BY 31 BPM Confirmed by Bowen Duncan ([id number]) on 09/25/2020 11:04:57 PM Referred By: REFERRED SELF Confirmed By:Bowen Duncan
[2020-09-26] MEDS: IPRATROPIUM BROMIDE NEB SOLN 0.02% 2.5 ML VIAL INH SCH ×3 (00:31→14:45)
[2020-09-26] MEDS: LEVALBUTEROL 1.25MG/0.5ML NEB INH SCH ×3 (00:31→14:45)
[2020-09-26] MEDS: DICLOFENAC SOD 1% GEL 100 GM TUBE EXT PRN ×3 (03:11→21:16)
[2020-09-26] MEDS: BACLOFEN 10 MG TAB PO PRN ×3 (04:32→18:59)
[2020-09-26] MEDS: HEPARIN SOD 5,000 UNIT/0.5 ML VIAL SQ SCH ×3 (06:17→21:05)
--- NOTE | 2020-09-26 08:01 | Hospitalist Progress Note ---
Date of Service September 26, 2020 Assessment & Plan (1) Acute hypoxemic respiratory failure: Secondary to COPD exacerbation secondary to CAP Immunocompromised patient, hx rheumatoid arthritis on chronic steroid therapy No sepsis for now Medical telemetry At the ER, O2 sats 80s on room air. Supplemental O2 on admission, currently pt is on RA Solu-Medrol 1 dose on admission, followed by 4-day prednisone course then revert to usual daily prednisone dose for RA Cultures, check lactic acid Ceftriaxone and doxycycline IVF Protein calorie malnutrition, hypophosphatemia, BMI 17 -pt is very thin and fragile on physical exam -replete phosphorus -dietitian consult Situational hypertension Seizure disorder, stable on regimen Chronic anemia, hemoglobin better than baseline on admission, likely secondary to hemoconcentration MCV about 100, add folic acid and vit. B12 Ongoing tobacco abuse, Nicotine patch PRN, counseling Disposition: needs PT/OT eval DVT phylaxis. Heparin subcu DNR Pt's daughter updated over the phone at the bedside today. Admission and Anticipated Discharge Date Admission Date: September 25, 2020 Subjective Pt is laying in bed in NAD. Reports she is feeling much better now. Shortness of breath much improved. No chest pain. No abd. pain, nausea or vomiting. Pt still has significant cough and is quite fragile. Will have dietitian consulted and CM for DC needs. Pt's daughter updated over the phone at the beside. Review of Systems Review of Systems: All systems reviewed & are unremarkable except as noted in HPI & below Constitutional: no fever and no chills Respiratory: + cough and + dyspnea Cardiovascular: no chest pain, no palpitations and no edema Gastrointestinal: no abdominal pain, no nausea and no vomiting Physical Exam Physical Exam: GENERAL: thin fragile elderly female sitting up in bed, in no respiratory distress HEENT: NC, pale palpebral conjunctivae, no ptosis, dry buccal mucosa NECK : Supple, no tenderness CHEST : Decreased breath sounds , no tenderness, no wheezing, coughs w/ deep inspiration HEART : RRR, no obvious murmurs ABDOMEN: Soft, nontender EXTREMITIES : No LE swelling/tenderness, no other conspicuous deformities noted SKIN: Pallor, warm NEUROLOGIC : alert and oriented x3, no facial asymmetry,speech fluent Results & Data Results & Data ([facility]) Vital Signs (Past 12 Hours) Vital Signs Temp Pulse Pulse Resp BP Pulse Ox 09/26/20 07:55 76 16 93 09/26/20 07:30 79 09/26/20 04:11 37.0 C 75 20 125/62 94 09/26/20 04:05 80 09/26/20 00:31 70 18 94 09/25/20 23:24 36.7 C 77 20 170/69 H 96 09/25/20 20:18 78 18 93 Laboratory Results 09/26/20 09/26/20 Range/Units 08:16 08:16 WBC 8.80 (4.8-10.8) K/uL RBC 3.02 L (4.2-5.4) M/uL Hgb 9.8 L (12.0-16.0) g/dL Hct 30.2 L (37-47) % MCV 100.0 (80-100) fL MCH 32.5 (25-34) pg MCHC 32.5 (32-36) g/dL RDW Std Deviation 65.7 H (36.4-46.3) fL RDW Coeff of Mandeep 18.1 H (11.5-14.5) % Plt Count 197 (130-400) K/uL MPV 9.4 (7.4-10.4) fL Sodium 135 L (136-145) mmol/L Potassium 3.8 (3.5-5.1) mmol/L Chloride 106 (98-107) mmol/L Carbon Dioxide 24 (21-32) mmol/L Anion Gap 5.0 (3-11) BUN 12 (7-18) mg/dl Creatinine 0.68 (0.6-1.2) mg/dl Est Cr Clr Drug Dosing 39.8 ml/min Est GFR ( Amer) 95.1 Est GFR (Non-Af Amer) 82.0 BUN/Creatinine Ratio 16.9 (10-20) Glucose 107 H (70-99) mg/dl Calcium 7.7 L (8.5-10.1) mg/dl Phosphorus 1.2 L* (2.5-4.9) mg/dl Magnesium 2.3 (1.8-2.4) mg/dl Medications Administered Current Inpatient Medications Acetaminophen (Acetaminophen 325 Mg Tab) 650 mg PO Q4H PRN PRN Reason: Pain or Fever Stop: 10/25/20 02:12 Amitriptyline HCl (Amitriptyline Hcl 10 Mg Tab) 10 mg PO HS YOLANDA Stop: 10/25/20 20:59 Last Admin: 09/25/20 21:02 Dose: 10 mg Documented by: Atorvastatin Calcium (Atorvastatin 20 Mg Tab) 20 mg PO HS YOLANDA Stop: 10/25/20 20:59 Last Admin: 09/25/20 21:02 Dose: 20 mg Documented by: Baclofen (Baclofen 10 Mg Tab) 10 mg PO TID PRN PRN Reason: Back Pain Stop: 10/25/20 02:12 Last Admin: 09/26/20 11:21 Dose: 10 mg Documented by: Diclofenac Sodium (Diclofenac Sod 1% Gel 100 Gm Tube) 1 gm EXT QID PRN PRN Reason: joint aches Stop: 10/26/20 08:59 Last Admin: 09/26/20 07:48 Dose: 1 gm Documented by: Doxycycline Hyclate (Doxycycline Hyclate 100 Mg Cap) 100 mg PO BID YOLANDA Stop: 10/02/20 20:59 Last Admin: 09/26/20 08:10 Dose: 100 mg Documented by: Famotidine (Famotidine 20 Mg Tab) 20 mg PO DAILY [facility] Stop: 10/25/20 08:59 Last Admin: 09/26/20 08:10 Dose: 20 mg Documented by: Fluticasone Propionate (Fluticasone Propionate Na Spr 16 Gm Btl) 2 sprays FRANCK DAILY YOLANDA Stop: 10/25/20 08:59 Last Admin: 09/26/20 08:10 Dose: 2 sprays Documented by: Heparin Sodium (Porcine) (Heparin Sod 5,000 Unit/0.5 Ml Vial) 5,000 units SQ Q8 YOLANDA Stop: 10/25/20 05:59 Last Admin: 09/26/20 14:32 Dose: Not Given Documented by: Promethazine HCl 6.25 mg/ (Sodium Chloride) 50.25 mls @ 201 mls/hr IV Q6H PRN PRN Reason: Nausea And Vomiting Stop: 10/25/20 02:12 Ceftriaxone Sodium 1,000 mg/ (Dextrose) 50 mls @ 100 mls/hr IV Q24H YOLANDA; Protocol Stop: 10/02/20 22:59 Last Infusion: 09/25/20 22:55 Dose: Infused Documented by: Ipratropium [place] (Ipratropium [place] Neb Soln 0.02% 2.5 Ml Vial) 0.5 mg INH Q6R PRN PRN Reason: Shortness Of Breath Or Wheezing Stop: 10/25/20 06:59 Levalbuterol HCl (Levalbuterol 1.25mg/0.5ml Neb) 1.25 mg INH Q6R PRN PRN Reason: Shortness Of Breath Or Wheezing Stop: 10/25/20 06:59 Levetiracetam (Levetiracetam 250 Mg Tab) 250 mg PO Q12H YOLANDA Stop: 10/25/20 08:59 Last Admin: 09/26/20 08:09 Dose: 250 mg Documented by: Oxycodone HCl (Oxycodone Hcl Ir 5 Mg Tab (Immediate Release)) 5 mg PO Q6H PRN PRN Reason: Pain Stop: 10/09/20 02:12 Last Admin: 09/26/20 11:20 Dose: 5 mg Documented by: Prednisone (Prednisone 20 Mg Tab) 40 mg PO DAILY YOLANDA Stop: 09/29/20 08:59 Last Admin: 09/26/20 08:09 Dose: 40 mg Documented by: Ropinirole HCl (Ropinirole Hcl 0.25 Mg Tablet) 0.25 mg PO HS YOLANDA Stop: 10/25/20 20:59 Last Admin: 09/25/20 21:08 Dose: 0.25 mg Documented by: Sodium Phosphate (Sodium Phosphate 3 Mmol/1 Ml Infusion) 9 mmol IV NOW STA Stop: 09/26/20 16:42
[2020-09-26] MEDS: predniSONE 20 MG TAB PO SCH (08:09)
[2020-09-26] MEDS: levETIRAcetam 250 MG TAB PO SCH ×2 (08:09→21:05)
[2020-09-26] MEDS: FAMOTIDINE 20 MG TAB PO SCH (08:10)
[2020-09-26] MEDS: DOXYCYCLINE HYCLATE 100 MG CAP PO SCH ×2 (08:10→21:05)
[2020-09-26] MEDS: FLUTICASONE PROPIONATE NA SPR 16 GM BTL NAE SCH (08:10)
[2020-09-26 08:45] LABS: Hematocrit (blood only) 30.2 % (37-47); Hemoglobin 9.8 g/dL (12.0-16.0); Mean Corpuscular Hemoglobin 32.5 pg (25-34); Mean Corpuscular Hgb Conc 32.5 g/dL (32-36); Mean Platelet Volume 9.4 fL (7.4-10.4); Platelet Count 197 K/uL (130-400); RDW Coefficient of Variation 18.1 % (11.5-14.5); RDW Standard Deviation 65.7 fL (36.4-46.3); Red Blood Count 3.02 M/uL (4.2-5.4)
[2020-09-26 09:07] LABS: BUN Creatinine Ratio 16.9 (10-20); Calcium 7.7 mg/dl (8.5-10.1); Creatinine Clr Calc Pharmacy 39.8 ml/min; Est GFR (African American) 95.1; Magnesium 2.3 mg/dl (1.8-2.4); Potassium 3.8 mmol/L (3.5-5.1)
[2020-09-26 09:41] LABS: Phosphorus 1.2 mg/dl (2.5-4.9)
[2020-09-26] MEDS: oxyCODONE HCL IR 5 MG TAB (IMMEDIATE RELEASE) PO PRN ×3 (11:20→22:52)
[2020-09-26] MEDS ORDERED: IPRATROPIUM BROMIDE NEB SOLN 0.02% 2.5 ML VIAL INH PRN (13:08)
[2020-09-26] MEDS ORDERED: LEVALBUTEROL 1.25MG/0.5ML NEB INH PRN (13:09)
[2020-09-26] MEDS ORDERED: SODIUM PHOSPHATE 3 MMOL/1 ML INFUSION IV STA (16:41)
[2020-09-26] MEDS ORDERED: SODIUM PHOSPHATE 9 MMOL in SODIUM CHLORIDE 0.9% 250 ML IV STA (16:45)
[2020-09-26] MEDS: rOPINIRole HCL 0.25 MG TABLET PO SCH (21:05)
[2020-09-26] MEDS: ATORVASTATIN 20 MG TAB PO SCH (21:05)
[2020-09-26] MEDS: AMITRIPTYLINE HCL 10 MG TAB PO SCH (21:05)
[2020-09-26] MEDS: cefTRIAXone SODIUM 1,000 MG in DEXTROSE 5% 50 ML IV SCH (22:08)
[2020-09-27] MEDS: BACLOFEN 10 MG TAB PO PRN ×2 (00:52→11:25)
[2020-09-27] MEDS: HEPARIN SOD 5,000 UNIT/0.5 ML VIAL SQ SCH ×3 (06:06→21:25)
[2020-09-27 07:32] LABS: Hematocrit (blood only) 24.5 % (37-47); Hemoglobin 8.1 g/dL (12.0-16.0); Mean Corpuscular Hemoglobin 33.2 pg (25-34); Mean Corpuscular Hgb Conc 33.1 g/dL (32-36); Mean Corpuscular Volume 100.4 fL (80-100); Mean Platelet Volume 9.3 fL (7.4-10.4); Platelet Count 175 K/uL (130-400); RDW Coefficient of Variation 18.2 % (11.5-14.5); RDW Standard Deviation 66.9 fL (36.4-46.3); Red Blood Count 2.44 M/uL (4.2-5.4); White Blood Count 4.86 K/uL (4.8-10.8)
[2020-09-27 07:54] LABS: BUN Creatinine Ratio 30.9 (10-20); Creatinine Clr Calc Pharmacy 48.4 ml/min; Est GFR (African American) 101.3; Est GFR (Non-African American) 87.4; Magnesium 2.2 mg/dl (1.8-2.4); Potassium 3.6 mmol/L (3.5-5.1)
[2020-09-27 08:06] LABS: Phosphorus 1.3 mg/dl (2.5-4.9)
[2020-09-27] MEDS ORDERED: SODIUM PHOSPHATE 3 MMOL/1 ML INFUSION IV STA (08:18)
[2020-09-27] MEDS ORDERED: FOLIC ACID 1 MG in SYRINGE 9.8 ML IV STA (08:20)
[2020-09-27] MEDS ORDERED: SODIUM PHOSPHATE 12 MMOL in SODIUM CHLORIDE 0.9% 250 ML IV STA (08:30)
--- NOTE | 2020-09-27 08:38 | Hospitalist Progress Note ---
Date of Service September 27, 2020 Assessment & Plan (1) Acute hypoxemic respiratory failure: Secondary to COPD exacerbation secondary to CAP Immunocompromised patient, hx rheumatoid arthritis on chronic steroid therapy No sepsis for now Medical telemetry At the ER, O2 sats 80s on room air. Supplemental O2 on admission, currently pt is on RA satting 91% Solu-Medrol 1 dose on admission, followed by 4-day prednisone course then revert to usual daily prednisone dose for RA Cultures, check lactic acid Ceftriaxone and doxycycline mucinex, IS, flutter valve IVF Protein calorie malnutrition, hypophosphatemia, BMI 17 -pt is very thin and fragile on physical exam -replete phosphorus -dietitian consult Loose stool - possibly d/t Abx, will check for c.diff - will add probiotic Situational hypertension Seizure disorder, stable on regimen Chronic anemia, hemoglobin better than baseline on admission, likely secondary to hemoconcentration Hgb above 8 now, no signs of bleeding MCV about 100, added folic acid and vit. B12 dietitian consulted Ongoing tobacco abuse, Nicotine patch PRN, counseling Disposition: needs PT/OT eval DVT phylaxis. Heparin subcu DNR Pt's daughter updated over the phone at the bedside yesterday. Admission and Anticipated Discharge Date Admission Date: September 25, 2020 Subjective Pt is laying in bed, reports feeling cold, also says that she feels "sick". Had diarrhea earlier today. Shortness of breath improved. No chest pain. No abd. pain, nausea or vomiting. Pt still has significant cough and is quite fragile. Will have dietitian consulted. Pt's daughter updated over the phone at the beside yesterday. 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 NECK : Supple, no tenderness CHEST : Decreased breath sounds , + mild rhonchi, no wheezing, coughs w/ deep inspiration HEART : RRR, no obvious murmurs ABDOMEN: Soft, nontender EXTREMITIES : No LE swelling/tenderness, no other conspicuous deformities noted SKIN: Pallor, warm NEUROLOGIC : alert and oriented x3, no facial asymmetry,speech fluent Results & Data Results & Data ([facility]) Vital Signs (Past 12 Hours) Vital Signs Temp Pulse Pulse Resp BP Pulse Ox 09/27/20 07:12 37 C 70 18 125/63 93 09/27/20 04:00 37 C 71 20 143/69 H 92 09/27/20 02:57 76 09/27/20 00:00 36.8 C 87 20 149/63 H 94 Laboratory Results 09/27/20 09/27/20 09/26/20 Range/Units 06:52 06:52 08:16 WBC 4.86 (4.8-10.8) K/uL RBC 2.44 L (4.2-5.4) M/uL Hgb 8.1 L (12.0-16.0) g/dL Hct 24.5 L (37-47) % MCV 100.4 H (80-100) fL MCH 33.2 (25-34) pg MCHC 33.1 (32-36) g/dL RDW Std Deviation 66.9 H (36.4-46.3) fL RDW Coeff of Mandeep 18.2 H (11.5-14.5) % Plt Count 175 (130-400) K/uL MPV 9.3 (7.4-10.4) fL Sodium 137 135 L (136-145) mmol/L Potassium 3.6 3.8 (3.5-5.1) mmol/L Chloride 108 H 106 (98-107) mmol/L Carbon Dioxide 24 24 (21-32) mmol/L Anion Gap 5.0 5.0 (3-11) BUN 17 12 (7-18) mg/dl Creatinine 0.56 L 0.68 (0.6-1.2) mg/dl Est Cr Clr Drug Dosing 48.4 39.8 ml/min Est GFR ( Amer) 101.3 95.1 Est GFR (Non-Af Amer) 87.4 82.0 BUN/Creatinine Ratio 30.9 H 16.9 (10-20) Glucose 79 107 H (70-99) mg/dl Calcium 7.0 L 7.7 L (8.5-10.1) mg/dl Phosphorus 1.3 L* 1.2 L* (2.5-4.9) mg/dl Magnesium 2.2 2.3 (1.8-2.4) mg/dl 09/26/20 Range/Units 08:16 WBC 8.80 (4.8-10.8) K/uL RBC 3.02 L (4.2-5.4) M/uL Hgb 9.8 L (12.0-16.0) g/dL Hct 30.2 L (37-47) % MCV 100.0 (80-100) fL MCH 32.5 (25-34) pg MCHC 32.5 (32-36) g/dL RDW Std Deviation 65.7 H (36.4-46.3) fL RDW Coeff of Mandeep 18.1 H (11.5-14.5) % Plt Count 197 (130-400) K/uL MPV 9.4 (7.4-10.4) fL Sodium (136-145) mmol/L Potassium (3.5-5.1) mmol/L Chloride (98-107) mmol/L Carbon Dioxide (21-32) mmol/L Anion Gap (3-11) BUN (7-18) mg/dl Creatinine (0.6-1.2) mg/dl Est Cr Clr Drug Dosing ml/min Est GFR ( Amer) Est GFR (Non-Af Amer) BUN/Creatinine Ratio (10-20) Glucose (70-99) mg/dl Calcium (8.5-10.1) mg/dl Phosphorus (2.5-4.9) mg/dl Magnesium (1.8-2.4) mg/dl Medications Administered Current Inpatient Medications Acetaminophen (Acetaminophen 325 Mg Tab) 650 mg PO Q4H PRN PRN Reason: Pain or Fever Stop: 10/25/20 02:12 Amitriptyline HCl (Amitriptyline Hcl 10 Mg Tab) 10 mg PO HS YOLANDA Stop: 10/25/20 20:59 Last Admin: 09/26/20 21:05 Dose: 10 mg Documented by: Atorvastatin Calcium (Atorvastatin 20 Mg Tab) 20 mg PO HS YOLANDA Stop: 10/25/20 20:59 Last Admin: 09/26/20 21:05 Dose: 20 mg Documented by: Baclofen (Baclofen 10 Mg Tab) 10 mg PO TID PRN PRN Reason: Back Pain Stop: 10/25/20 02:12 Last Admin: 09/27/20 00:52 Dose: 10 mg Documented by: Cyanocobalamin (Cyanocobalamin 500 Mcg Tablet (Vitamin B-12)) 1,000 mcg PO QAM [facility] Stop: 10/27/20 08:59 Diclofenac Sodium (Diclofenac Sod 1% Gel 100 Gm Tube) 1 gm EXT QID PRN PRN Reason: joint aches Stop: 10/26/20 08:59 Last Admin: 09/26/20 21:16 Dose: 1 gm Documented by: Doxycycline Hyclate (Doxycycline Hyclate 100 Mg Cap) 100 mg PO BID YOLANDA Stop: 10/02/20 20:59 Last Admin: 09/26/20 21:05 Dose: 100 mg Documented by: Famotidine (Famotidine 20 Mg Tab) 20 mg PO DAILY [facility]ANDA Stop: 10/25/20 08:59 Last Admin: 09/26/20 08:10 Dose: 20 mg Documented by: Fluticasone Propionate (Fluticasone Propionate Na Spr 16 Gm Btl) 2 sprays FRANCK DAILY [facility] Stop: 10/25/20 08:59 Last Admin: 09/26/20 08:10 Dose: 2 sprays Documented by: Folic Acid (Folic Acid 1 Mg Tab) 1 mg PO QAM [facility] Stop: 10/27/20 08:59 Heparin Sodium (Porcine) (Heparin Sod 5,000 Unit/0.5 Ml Vial) 5,000 units SQ Q8 YOLANDA Stop: 10/25/20 05:59 Last Admin: 09/27/20 06:06 Dose: Not Given Documented by: Promethazine HCl 6.25 mg/ (Sodium Chloride) 50.25 mls @ 201 mls/hr IV Q6H PRN PRN Reason: Nausea And Vomiting Stop: 10/25/20 02:12 Ceftriaxone Sodium 1,000 mg/ (Dextrose) 50 mls @ 100 mls/hr IV Q24H YOLANDA; Prot ocol Stop: 10/02/20 22:59 Last Infusion: 09/26/20 22:53 Dose: Infused Documented by: Sodium Phosphate 12 mmol/ (Sodium Chloride) 254 mls @ 88 mls/hr IV NOW STA Stop: 09/27/20 11:23 Ipratropium [place] (Ipratropium [place] Neb Soln 0.02% 2.5 Ml Vial) 0.5 mg INH Q6R PRN PRN Reason: Shortness Of Breath Or Wheezing Stop: 10/25/20 06:59 Levalbuterol HCl (Levalbuterol 1.25mg/0.5ml Neb) 1.25 mg INH Q6R PRN PRN Reason: Shortness Of Breath Or Wheezing Stop: 10/25/20 06:59 Levetiracetam (Levetiracetam 250 Mg Tab) 250 mg PO Q12H YOLANDA Stop: 10/25/20 08:59 Last Admin: 09/26/20 21:05 Dose: 250 mg Documented by: Oxycodone HCl (Oxycodone Hcl Ir 5 Mg Tab (Immediate Release)) 5 mg PO Q6H PRN PRN Reason: Pain Stop: 10/09/20 02:12 Last Admin: 09/26/20 22:52 Dose: 5 mg Documented by: Potassium Phosphate (Pot Phosphate Monobasic W/ Sod Tab) 1 tab PO QID [facility] Stop: 10/27/20 08:59 Prednisone (Prednisone 20 Mg Tab) 40 mg PO DAILY [facility] Stop: 09/29/20 08:59 Last Admin: 09/26/20 08:09 Dose: 40 mg Documented by: Ropinirole HCl (Ropinirole Hcl 0.25 Mg Tablet) 0.25 mg PO HS [facility] Stop: 10/25/20 20:59 Last Admin: 09/26/20 21:05 Dose: 0.25 mg Documented by:
[2020-09-27] MEDS: CYANOCOBALAMIN 500 MCG TABLET (VITAMIN B-12) PO SCH (09:03)
[2020-09-27] MEDS: FLUTICASONE PROPIONATE NA SPR 16 GM BTL NAE SCH (09:04)
[2020-09-27] MEDS: levETIRAcetam 250 MG TAB PO SCH ×2 (09:05→21:22)
[2020-09-27] MEDS: predniSONE 20 MG TAB PO SCH (09:05)
[2020-09-27] MEDS: DOXYCYCLINE HYCLATE 100 MG CAP PO SCH ×2 (09:05→21:24)
[2020-09-27] MEDS: FAMOTIDINE 20 MG TAB PO SCH (09:05)
[2020-09-27] MEDS: POT PHOSPHATE MONOBASIC W/ SOD TAB PO SCH ×4 (09:08→21:23)
[2020-09-27] MEDS: oxyCODONE HCL IR 5 MG TAB (IMMEDIATE RELEASE) PO PRN ×2 (11:25→21:33)
--- NOTE | 2020-09-27 14:36 | XRay Report ---
XR chest 1V portable CLINICAL HISTORY: follow up COMPARISON STUDY: 09/24/2020 FINDINGS: The cardiac and mediastinal contours remain stable. There is slight progression of the righ t basilar opacities with suspected right lower lobe volume loss. There is been mild improvement appea rs identified left basilar airspace opacities[ IMPRESSION: 1. Slight improvement in the previously identified left basilar airspace opacities 2. Slight progression in the right basilar airspace opacities with evidence of right lower lobe volum e loss ACT 112: Negative or not required by law. Electronically signed by: Stefano Colon M.D. 09/27/2020 2:34 PM
[2020-09-27] MEDS: guaiFENesin 600 MG TABCR PO SCH ×2 (14:40→21:23)
[2020-09-27] MEDS: UMECLIDINIUM BROMIDE 62.5MCG/BLISTER 7 PUFFS/INHALER INH SCH (14:40)
[2020-09-27] MEDS: SACCHAROMYCES BOULARDII 250 MG CAP PO SCH (15:45)
[2020-09-27] MEDS: AMITRIPTYLINE HCL 10 MG TAB PO SCH (21:22)
[2020-09-27] MEDS: ATORVASTATIN 20 MG TAB PO SCH (21:23)
[2020-09-27] MEDS: rOPINIRole HCL 0.25 MG TABLET PO SCH (21:24)
[2020-09-27] MEDS: cefTRIAXone SODIUM 1,000 MG in DEXTROSE 5% 50 ML IV SCH (22:09)
[2020-09-27] MEDS: ADVANCED PROBIOTIC 1250 MG CAPSULE PO SCH (23:11)
[2020-09-28] MEDS: BACLOFEN 10 MG TAB PO PRN ×2 (00:35→12:40)
[2020-09-28] MEDS: HEPARIN SOD 5,000 UNIT/0.5 ML VIAL SQ SCH ×2 (06:13→14:06)
[2020-09-28] MEDS: POT PHOSPHATE MONOBASIC W/ SOD TAB PO SCH ×3 (08:34→18:52)
[2020-09-28] MEDS: levETIRAcetam 250 MG TAB PO SCH (08:34)
[2020-09-28] MEDS: DOXYCYCLINE HYCLATE 100 MG CAP PO SCH (08:34)
[2020-09-28] MEDS: guaiFENesin 600 MG TABCR PO SCH (08:34)
[2020-09-28] MEDS: CYANOCOBALAMIN 500 MCG TABLET (VITAMIN B-12) PO SCH (08:35)
[2020-09-28] MEDS: predniSONE 20 MG TAB PO SCH (08:35)
[2020-09-28] MEDS: FAMOTIDINE 20 MG TAB PO SCH (08:36)
[2020-09-28] MEDS: UMECLIDINIUM BROMIDE 62.5MCG/BLISTER 7 PUFFS/INHALER INH SCH (08:42)
[2020-09-28 08:43] LABS: Hematocrit (blood only) 25.5 % (37-47); Hemoglobin 8.5 g/dL (12.0-16.0); Mean Corpuscular Hemoglobin 33.9 pg (25-34); Mean Corpuscular Hgb Conc 33.3 g/dL (32-36); Mean Corpuscular Volume 101.6 fL (80-100); Mean Platelet Volume 8.9 fL (7.4-10.4); Platelet Count 162 K/uL (130-400); RDW Coefficient of Variation 18.1 % (11.5-14.5); RDW Standard Deviation 67.3 fL (36.4-46.3); Red Blood Count 2.51 M/uL (4.2-5.4); White Blood Count 4.31 K/uL (4.8-10.8)
[2020-09-28] MEDS: FLUTICASONE PROPIONATE NA SPR 16 GM BTL NAE SCH (08:43)
[2020-09-28] MEDS ORDERED: FOLIC ACID 1 MG TAB PO SCH (09:00)
[2020-09-28 09:14] LABS: BUN Creatinine Ratio 30.1 (10-20); Calcium 7.2 mg/dl (8.5-10.1); Creatinine Clr Calc Pharmacy 42.2 ml/min; Est GFR (African American) 95.1; Magnesium 2.1 mg/dl (1.8-2.4); Phosphorus 1.8 mg/dl (2.5-4.9); Potassium 3.4 mmol/L (3.5-5.1)
[2020-09-28] MEDS ORDERED: POTASSIUM PHOS 3 MMOL/1 ML INFUSION IV STA (11:07)
--- NOTE | 2020-09-28 11:09 | Hospitalist Progress Note ---
Date of Service September 28, 2020 Assessment & Plan (1) Acute hypoxemic respiratory failure: Secondary to COPD exacerbation secondary to CAP Immunocompromised patient, hx rheumatoid arthritis on chronic steroid therapy No sepsis At the ER, O2 sats 80s on room air. Supplemental O2 on admission, currently pt is on RA satting 91% Solu-Medrol 1 dose on admission, followed by 4-day prednisone course then revert to usual daily prednisone dose for RA Blood cultures - negative Ceftriaxone and doxycycline while inpt mucinex, IS, flutter valve IVF Protein calorie malnutrition, hypophosphatemia, BMI 17 -pt is very thin and fragile on physical exam -replete phosphorus -dietitian consult Loose stool - possibly d/t Abx, will check for c.diff - will add probiotic Situational hypertension Seizure disorder, stable on regimen Chronic anemia, hemoglobin better than baseline on admission, likely secondary to hemoconcentration Hgb above 8 now, no signs of bleeding MCV about 100, added folic acid and vit. B12 dietitian consulted Ongoing tobacco abuse, Nicotine patch PRN, counseling Disposition: needs PT/OT eval DVT phylaxis. Heparin subcu DNR Admission and Anticipated Discharge Date Admission Date: September 25, 2020 Subjective Patient seen in follow-up of pneumonia and COPD exacerbation. She is lying in bed, comfortable, says that she feels well today. Denies any chest pain, shortness of breath, abdominal pain, nausea or vomiting. She says that she has some cough, which is at her baseline. Inquiring about going home. 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 NECK : Supple, no tenderness CHEST : Decreased breath sounds , + mild rhonchi, no wheezing, coughs w/ deep inspiration HEART : RRR, no obvious murmurs ABDOMEN: Soft, nontender EXTREMITIES : No LE swelling/tenderness, no other conspicuous deformities noted SKIN: Pallor, warm NEUROLOGIC : alert and oriented x3, no facial asymmetry,speech fluent Results & Data Results & Data ([facility]) Vital Signs (Past 12 Hours) Vital Signs Temp Pulse Pulse Pulse Resp BP Pulse Ox 09/28/20 07:28 64 09/28/20 07:22 36.8 C 62 18 159/66 H 92 09/28/20 03:23 37.1 C 80 20 153/80 H 93 09/28/20 03:08 69 Laboratory Results 09/28/20 09/28/20 Range/Units 08:23 08:23 WBC 4.31 L (4.8-10.8) K/uL RBC 2.51 L (4.2-5.4) M/uL Hgb 8.5 L (12.0-16.0) g/dL Hct 25.5 L (37-47) % MCV 101.6 H (80-100) fL MCH 33.9 (25-34) pg MCHC 33.3 (32-36) g/dL RDW Std Deviation 67.3 H (36.4-46.3) fL RDW Coeff of Mandeep 18.1 H (11.5-14.5) % Plt Count 162 (130-400) K/uL MPV 8.9 (7.4-10.4) fL Sodium 139 (136-145) mmol/L Potassium 3.4 L (3.5-5.1) mmol/L Chloride 110 H (98-107) mmol/L Carbon Dioxide 23 (21-32) mmol/L Anion Gap 6.0 (3-11) BUN 20 H (7-18) mg/dl Creatinine 0.68 (0.6-1.2) mg/dl Est Cr Clr Drug Dosing 42.2 ml/min Est GFR ( Amer) 95.1 Est GFR (Non-Af Amer) 82.0 BUN/Creatinine Ratio 30.1 H (10-20) Glucose 102 H (70-99) mg/dl Calcium 7.2 L (8.5-10.1) mg/dl Phosphorus 1.8 L (2.5-4.9) mg/dl Magnesium 2.1 (1.8-2.4) mg/dl Medications Administered Current Inpatient Medications Acetaminophen (Acetaminophen 325 Mg Tab) 650 mg PO Q4H PRN PRN Reason: Pain or Fever Stop: 10/25/20 02:12 Amitriptyline HCl (Amitriptyline Hcl 10 Mg Tab) 10 mg PO HS YOLANDA Stop: 10/25/20 20:59 Last Admin: 09/27/20 21:22 Dose: 10 mg Documented by: Atorvastatin Calcium (Atorvastatin 20 Mg Tab) 20 mg PO HS YOLANDA Stop: 10/25/20 20:59 Last Admin: 09/27/20 21:23 Dose: 20 mg Documented by: Baclofen (Baclofen 10 Mg Tab) 10 mg PO TID PRN PRN Reason: Back Pain Stop: 10/25/20 02:12 Last Admin: 09/28/20 00:35 Dose: 10 mg Documented by: Cyanocobalamin (Cyanocobalamin 500 Mcg Tablet (Vitamin B-12)) 1,000 mcg PO QAM YOLANDA Stop: 10/27/20 08:59 Last Admin: 09/28/20 08:35 Dose: 1,000 mcg Documented by: Diclofenac Sodium (Diclofenac Sod 1% Gel 100 Gm Tube) 1 gm EXT QID PRN PRN Reason: joint aches Stop: 10/26/20 08:59 Last Admin: 09/26/20 21:16 Dose: 1 gm Documented by: Doxycycline Hyclate (Doxycycline Hyclate 100 Mg Cap) 100 mg PO BID [facility] Stop: 10/02/20 20:59 Last Admin: 09/28/20 08:34 Dose: 100 mg Documented by: Famotidine (Famotidine 20 Mg Tab) 20 mg PO DAILY YOLANDA Stop: 10/25/20 08:59 Last Admin: 09/28/20 08:36 Dose: 20 mg Documented by: Fluticasone Propionate (Fluticasone Propionate Na Spr 16 Gm Btl) 2 sprays FRANCK DAILY YOLANDA Stop: 10/25/20 08:59 Last Admin: 09/28/20 08:43 Dose: 2 sprays Documented by: Folic Acid (Folic Acid 1 Mg Tab) 1 mg PO QAM [facility] Stop: 10/28/20 08:59 Guaifenesin (Guaifenesin 600 Mg Tabcr) 600 mg PO Q12 YOLANDA Stop: 10/27/20 13:29 Last Admin: 09/28/20 08:34 Dose: 600 mg Documented by: Heparin Sodium (Porcine) (Heparin Sod 5,000 Unit/0.5 Ml Vial) 5,000 units SQ Q8 YOLANDA Stop: 10/25/20 05:59 Last Admin: 09/28/20 06:13 Dose: 5,000 units Documented by: Promethazine HCl 6.25 mg/ (Sodium Chloride) 50.25 mls @ 201 mls/hr IV Q6H PRN PRN Reason: Nausea And Vomiting Stop: 10/25/20 02:12 Ceftriaxone Sodium 1,000 mg/ (Dextrose) 50 mls @ 100 mls/hr IV Q24H YOLANDA; Protocol Stop: 10/02/20 22:59 Last Infusion: 09/27/20 22:39 Dose: Infused Documented by: Ipratropium Bantam (Ipratropium Bantam Neb Soln 0.02% 2.5 Ml Vial) 0.5 mg INH Q6R PRN PRN Reason: Shortness Of Breath Or Wheezing Stop: 10/25/20 06:59 Last Admin: 09/27/20 13:01 Dose: 0.5 mg Documented by: Lactobacillus Acidoph/Casei/Rhamnos (Advanced Probiotic 1250 Mg Capsule) 2 cap PO DAILY YOLANDA Stop: 10/27/20 15:59 Last Admin: 09/27/20 23:11 Dose: Not Given Documented by: Levalbuterol HCl (Levalbuterol 1.25mg/0.5ml Neb) 1.25 mg INH Q6R PRN PRN Reason: Shortness Of Breath Or Wheezing Stop: 10/25/20 06:59 Last Admin: 09/27/20 13:01 Dose: 1.25 mg Documented by: Levetiracetam (Levetiracetam 250 Mg Tab) 250 mg PO Q12H YOLANDA Stop: 10/25/20 08:59 Last Admin: 09/28/20 08:34 Dose: 250 mg Documented by: Oxycodone HCl (Oxycodone Hcl Ir 5 Mg Tab (Immediate Release)) 5 mg PO Q6H PRN PRN Reason: Pain Stop: 10/09/20 02:12 Last Admin: 09/27/20 21:33 Dose: 5 mg Documented by: Potassium Phosphate (Pot Phosphate Monobasic W/ Sod Tab) 1 tab PO QID YOLANDA Stop: 10/27/20 08:59 Last Admin: 09/28/20 08:34 Dose: 1 tab Documented by: Potassium Phosphate (Potassium Phos 3 Mmol/1 Ml Infusion) 9 mmol IV NOW STA Stop: 09/28/20 11:08 Prednisone (Prednisone 20 Mg Tab) 40 mg PO DAILY YOLANDA Stop: 09/29/20 08:59 Last Admin: 09/28/20 08:35 Dose: 40 mg Documented by: Ropinirole HCl (Ropinirole Hcl 0.25 Mg Tablet) 0.25 mg PO HS YOLANDA Stop: 10/25/20 20:59 Last Admin: 09/27/20 21:24 Dose: 0.25 mg Documented by: Saccharomyces Boulardii (Saccharomyces Boulardii 250 Mg Cap) 250 mg PO DAILY YOLANDA Stop: 10/27/20 12:59 Last Admin: 09/27/20 15:45 Dose: Not Given Documented by: Umeclidinium Bantam (Umeclidinium Bantam 62.5mcg/Blister 7 Puffs/Inhaler) 1 puffs INH DAILY [facility]; Protocol Stop: 10/27/20 12:59 Last Admin: 09/28/20 08:42 Dose: 1 puffs Documented by:
[2020-09-28] MEDS ORDERED: POTASSIUM CHLORIDE CRTAB 20 MEQ TABCR PO STA (11:11)
[2020-09-28] MEDS ORDERED: POTASSIUM PHOSPHATE 9 MMOL in SODIUM CHLORIDE 0.9% 250 ML IV ONE (11:30)
[2020-09-28] MEDS: SACCHAROMYCES BOULARDII 250 MG CAP PO SCH (12:31)
[2020-09-28] MEDS: ADVANCED PROBIOTIC 1250 MG CAPSULE PO SCH (12:31)
[2020-09-28] MEDS: oxyCODONE HCL IR 5 MG TAB (IMMEDIATE RELEASE) PO PRN (14:04)
--- NOTE | 2020-09-28 15:38 | Discharge Summary ---
Date of Service September 28, 2020 Admission HPI Per Admitting Provider History obtained from patient and records. Medical history significant for COPD, ongoing tobacco abuse, hyperlipidemia, seizure disorder, rheumatoid arthritis on chronic steroid therapy, chronic anemia (baseline he moglobin of 9-10), restless legs syndrome, aspiration risk as per records. Recent confinement November 2019 for dizziness. Few days history of hacking cough symptoms associated with generalized weakness, body aches, nausea, transient diarrhea. Denies aspiration. Denies chest pain. No known recent COVID-19 contacts. At the ER, O2 sats 80s on room air. Patient given Ceftriaxone and Azithromycin for pneumonia. MEDICAL HISTORY: As above. SURGERIES: Appendectomy, cataract surgery, exploratory laparotomy, hysterectomy, gynecologic procedures, tonsillectomy, hip fracture surgery FAMILY HISTORY: Diabetes. Heart disease, stroke PERSONAL AND SOCIAL HISTORY: 6 cigarettes daily. No chronic intake of alcohol. 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 Lives alone. Admission Exam Per Admitting Provider GENERAL: Slightly uncomfortable, underweight, no respiratory distress SKIN: Pallor, warm HEENT: Pale palpebral conjunctivae, no ptosis, dry buccal mucosa, nasal cannula in place NECK : Supple, no tenderness CHEST : Decreased breath sounds , no tenderness HEART : RRR, no obvious murmurs ABDOMEN: Soft, nontender EXTREMITIES : No LE swelling/tenderness, no other conspicuous deformities noted NEUROLOGIC : Coherent, no facial asymmetry, no other gross focality Principal Diagnosis Acute hypoxic respiratory failure secondary to COPD exacerbation and community- acquired pneumonia Discharge Exam GENERAL: thin fragile elderly female laying in bed in bed, in no respiratory distress HEENT: NC, pale palpebral conjunctivae, no ptosis, dry buccal mucosa, 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 NECK : Supple, no tenderness CHEST : Decreased breath sounds , + mild rhonchi, no wheezing, coughs w/ deep inspiration HEART : RRR, no obvious murmurs ABDOMEN: Soft, nontender EXTREMITIES : No LE swelling/tenderness, no other conspicuous deformities noted SKIN: Pallor, warm NEUROLOGIC : alert and oriented x3, no facial asymmetry,speech fluent Discharge Data Allergies Allergy/AdvReac Type Severity Reaction Status Date / Time pollen extracts Allergy Mild SEASONAL-ITCHY Verified 09/24/20 23:02 EYES,RUNNY NOSE Consultations 09/24/20 23:00 ED Decision to Admit Stat 09/25/20 02:13 Consult Case Management - Discharge Planning Routine Hospital Course (1) Acute hypoxemic respiratory failure: Secondary to COPD exacerbation secondary to CAP Immunocompromised patient, hx rheumatoid arthritis on chronic steroid therapy No sepsis At the ER, O2 sats 80s on room air. Supplemental O2 on admission, currently pt is on RA satting 91% Solu-Medrol 1 dose on admission, followed by 4-day prednisone course then revert to usual daily prednisone dose for RA Blood cultures - negative Ceftriaxone and doxycycline while inpt mucinex, IS, flutter valve IVF Protein calorie malnutrition, hypophosphatemia, BMI 17 -pt is very thin and fragile on physical exam -replete phosphorus -dietitian consult Loose stool - possibly d/t Abx, will check for c.diff - will add probiotic Situational hypertension Seizure disorder, stable on regimen Chronic anemia, hemoglobin better than baseline on admission, likely secondary to hemoconcentration Hgb above 8 now, no signs of bleeding MCV about 100, added folic acid and vit. B12 dietitian consulted Ongoing tobacco abuse, Nicotine patch PRN, counseling Total Time Total Time Spent Total Time Spent (In Minutes): 40 Total Time Includes: Examination of the Patient, Discharge Planning, Medication Reconciliation and Communication With Other Providers Discharge Plan Discharge Items Patient Disposition: Home - Home Health Services Reason For Visit: RESP FAILURE Discharge Diagnosis: Acute hypoxic respiratory failure secondary to COPD exacerbation and community- acquired pneumonia Activity: Per Instructions section Non-emergency contact: Primary Care Provider Call non-emergency contact if: you have any medication questions and your symptoms worsen Follow-up/Referrals: Zakia Galvez DO [Primary Care Provider] - (Date & Time 09/29/2020 11:10 AM Provider Zakia Galvez DO Department Internal Medicine [facility] ) Diet: Regular Addtl Attending Provider Instructions: Follow-up with primary care doctor, the appointment was scheduled for you. Take antibiotic, doxycycline, for 2 more days. To help break up mucus, recommend to take Mucinex. To prevent antibiotic associated diarrhea, recommend to take probiotic. For joint pain, you can use Voltaren gel, prescription was sent to your pharmacy. Also recommend taking vitamins, folic acid and B12. Also recommend phosphorus supplement. Discuss with your primary care doctor if you should have blood work done to check your electrolytes and how long you should continue the supplement s. Pending Studies at Discharge: No Stand-Alone Forms: My [facility], Smoking Cessation Medications and DC Order Prescriptions: New diclofenac sodium [Voltaren] 1 % Gel 1 g EXT QID PRN (Reason: joint pain) Qty: 100 RF: 0 Phospha 250 Neutral 250 mg Tablet 1 tab PO QID 5 Days Qty: 20 RF: 0 Advanced Probiotic 625 mg (10 billion cell) Capsule 2 cap PO DAILY 7 Days Qty: 14 RF: 0 guaifenesin [Mucinex] 600 mg Tablet Extended Release 12hr 600 mg PO Q12 7 Days Qty: 14 RF: 0 folic acid 1 mg Tablet 1 mg PO QAM 30 Days Qty: 30 RF: 0 cyanocobalamin (vitamin B-12) 500 mcg Tablet 1,000 mcg PO QAM 30 Days Qty: 60 RF: 0 doxycycline hyclate 100 mg Capsule 100 mg PO BID 2 Days Qty: 4 RF: 0 Continued famotidine 20 mg tablet 20 mg PO DAILY RF: 0 amitriptyline 10 mg tablet 10 mg PO HS RF: 0 ibuprofen [Motrin IB] 200 mg tablet 200 mg PO Q8H PRN (Reason: pain) Qty: 90 RF: 0 baclofen 10 mg Tablet 10 mg PO TID PRN (Reason: Back Pain) RF: 0 atorvastatin 20 mg tablet 20 mg PO HS RF: 0 prednisone 5 mg tablet 5 mg PO HS RF: 0 ropinirole 0.25 mg tablet 0.25 mg PO HS RF: 0 fluticasone propionate 50 mcg/actuation spray,suspension 2 spray Intranasal DAILY RF: 0 albuterol sulfate [Ventolin HFA] 90 mcg/actuation Hfa Aerosol Inhaler 1 - 2 puff Inhalation Q4 PRN (Reason: Shortness Of Breath Or Wheezing) RF: 0 Spiriva Respimat 1.25 mcg/actuation mist 1 inh INHALATION DAILY RF: 0 magnesium hydroxide [Milk of Magnesia] 400 mg/5 mL Suspension 400 mg PO DAILY PRN (Reason: Constipation) RF: 0 oxycodone 5 mg tablet 5 mg PO Q6H PRN (Reason: Pain) RF: 0 levetiracetam 250 mg tablet 250 mg PO Q12H RF: 0 Discharge Orders: Discharge Order (Routine); Ordered 09/28/20 Ordered By: Gabe Wang Admission Data Admit Date/Time: 11/21/20 00:34 Attending Provider: Gabe Wang Admit Provider: Lee Mitchell Primary Care Provider: Zakia Galvez Other Providers: Lee Mitchell
== END 2020-09-28 19:26 | disposition home health service (06) | DRG 193 ==
LOC: ED 17:22 → 2W 09-25 00:34

== ENCOUNTER 2020-10-02 09:51 | Inpatient (IN) ==
[2020-10-02] MEDS ORDERED: MECLIZINE HCL 25 MG TAB PO STA (10:07)
[2020-10-02] MEDS ORDERED: ONDANSETRON INJ 2 MG/ML 2 ML VIAL IV STA (10:09)
--- NOTE | 2020-10-02 10:15 | Emergency Department Note ---
History of Present Illness General Chief complaint: Dizziness Time Seen by Provider: 10/02/20 10:02 History of Present Illness Provider complaint: Dizziness and weakness Onset (ago): day(s) 2 Associated symptoms: + nausea/vomiting (Nausea no vomiting) and + weakness; no chest pain, no cough, no fever/chills, no seizure and no shortness of breath 80-year-old female presents emergency department for dizziness, nausea, and weakness. Patient reports her symptoms began 2 days ago. She denies any fevers. She reports she feels like the room is spinning and like she might pass out. She denies any loss of taste or smell. Patient states that she has not been exposed to anyone with COVID-19. Patient denies any seizures. She denies any shortness of breath or chest pain. No melena or hematochezia. Home Medications Medication Instructions Recorded Confirmed Type albuterol sulfate [Ventolin HFA] 1 - 2 puff INHALATION Q4 PRN 07/13/18 10/02/20 History atorvastatin 20 mg PO HS 07/13/18 10/02/20 History baclofen 10 mg PO TID PRN 07/13/18 10/02/20 History fluticasone propionate 2 spray INTRANASAL DAILY 07/13/18 10/02/20 History prednisone 5 mg PO HS 07/13/18 10/02/20 History ropinirole 0.25 mg PO HS 07/13/18 10/02/20 History amitriptyline 10 mg PO HS 11/11/19 10/02/20 History famotidine 20 mg PO DAILY 11/11/19 10/02/20 History ibuprofen [Motrin IB] 200 mg PO Q8H PRN #90 tab 11/17/19 10/02/20 Rx Spiriva Respimat 1 inh INHALATION DAILY 07/09/20 10/02/20 History magnesium hydroxide [Milk of 400 mg PO DAILY PRN 07/09/20 09/24/20 History Magnesia] oxycodone 5 mg PO Q6H PRN 07/09/20 10/02/20 History levetiracetam 250 mg PO Q12H 09/24/20 10/02/20 History L.acidop,mila,lac,rha-B.lac,karine 2 cap PO DAILY 7 Days #14 cap 09/28/20 10/02/20 Rx [Advanced Probiotic] cyanocobalamin (vitamin B-12) 1,000 mcg PO QAM 30 Days #60 tab 09/28/20 10/02/20 Rx diclofenac sodium [Voltaren] 1 g EXT QID PRN #100 g 09/28/20 10/02/20 Rx folic acid 1 mg PO QAM 30 Days #30 tab 09/28/20 10/02/20 Rx guaifenesin [Mucinex] 600 mg PO Q12 7 Days #14 tab 09/28/20 10/02/20 Rx sod phos di, mono-K phos mono 1 tab PO QID 5 Days #20 tab 09/28/20 10/02/20 Rx [Phospha 250 Neutral] Allergies Allergy/AdvReac Type Severity Reaction Status Date / Time pollen extracts Allergy Mild SEASONAL-ITCHY Verified 09/24/20 23:02 EYES,RUNNY NOSE Past Med/Surg History Medical History (Updated 10/02/20 @ 14:13 by Bong Ramires) Allergic rhinitis Anemia of chronic disease Anxiety Blind right eye COPD (chronic obstructive pulmonary disease) DNR (do not resuscitate) Hyponatremia Restless leg syndrome Rheumatoid arthritis Seizure Seizure disorder Severe protein-calorie malnutrition Tobacco use disorder Surgical History Status post appendectomy Status post cataract extraction Status post exploratory laparotomy "x3 for adhesions" Status post hysterectomy Status post ovarian cystectomy Status post tonsillectomy Status post tubal ligation Family History Other Family history non-contributory Social History Smoking Status: Current every day smoker Tobacco Type: Cigarettes Cigarettes Per Day: 20; Number of Years Since Quit: 29; Second Hand Exposure: Yes; Hx Alcohol Use: No Hx Substance Use: No Preferred Language: Yemeni Communication Ability: Effective Visual Impairment: Blindness Devulcanizer Charger Required: No Beliefs That Will Affect Care: None marital status: / Current Living Situation: Alone Current Living Situation Comment: in apartment Feels Safe at Home: Yes Assistive Devices: Walker Review of Systems A total of 10 systems reviewed and were otherwise negative Physical Exam Vital Signs Vital Signs - 24 hr 10/02/20 09:58 10/02/20 12:07 10/02/20 12:30 Temperature 36.6 C Temperature Source Oral Pulse Rate 70 65 70 Pulse Rate [Apical] Pulse Rate from SpO2 Sensor 66 71 Respiratory Rate 20 10 L 15 Respiratory Effort / Characteristics Blood Pressure 163/64 H 173/63 H 144/49 H Blood Pressure [Right Arm] Blood Pressure Mean 97 79 89 Blood Pressure Mean [Right Arm] Pulse Oximetry 95 98 97 Oxygen Delivery Method Room Air Sepsis Recent Fever Within 48 Hours No Sepsis New/Unexplained Change in Mental Status N/A Sepsis Action Taken by Nursing No Action Required 10/02/20 13:03 10/02/20 13:58 Temperature Temperature Source Pulse Rate Pulse Rate [Apical] 72 68 Pulse Rate from SpO2 Sensor Respiratory Rate 20 16 Respiratory Effort / Characteristics Non-Labored Blood Pressure Blood Pressure [Right Arm] 118/59 L 123/47 L Blood Pressure Mean Blood Pressure Mean [Right Arm] 78 72 Pulse Oximetry 93 94 Oxygen Delivery Method Room Air Room Air Sepsis Recent Fever Within 48 Hours Sepsis New/Unexplained Change in Mental Status Sepsis Action Taken by Nursing Physical Exam EYES: Conjunctivae and EOM are normal. Pupils are equal, round, and reactive to light. Right eye exhibits no discharge. Left eye exhibits no discharge. No scleral icterus. No nystagmus bilaterally. NECK: Normal range of motion. Neck supple. No JVD present. No spinous process tenderness present. No carotid bruit present. No rigidity. No tracheal deviation and normal range of motion present. No Brudzinski's sign and no Kernig's sign noted. CV: Normal rate, regular rhythm, normal heart sounds and intact distal pulses. There is no peripheral edema. Palpable radial pulses bue. PULM/CHEST: Effort normal and breath sounds normal. No respiratory distress. No stridor. She has no wheezes. She has no rales. -Chest Wall: She exhibits no tenderness. ABD: The abdomen is soft. Bowel sounds are normal. She has no distension. No mass is present. There is no tenderness. There is no rebound, no guarding, no Owens's sign and no tenderness at McBurney's point. Rovsig negative MUSC/SKEL: Normal range of motion. There is no peripheral edema, tenderness or deformity. LYMPH: No cervical adenopathy. NEURO: She is alert and oriented to person, place, and time. She has normal strength. No cranial nerve deficit or sensory deficit. GCS eye subscore is 4. GCS verbal subscore is 5. GCS motor subscore is 6. PSYCH: She has a normal mood and affect. Behavior is normal. Judgment and thought content normal. Course Course 1002: The patient was evaluated in room A12. A complete history and physical exam was performed. Patient was seen in full airborne precautions. Patient was seen in N95's, gloves, gowns, face shield by myself and staff. Cardiac monitoring: An order was placed for continuous cardiac monitoring. The monitor shows a rate of 70 with sinus rhythm EMR reviewed. Patient has a history of seizure disorder, dizziness, hypon atremia, acute respiratory failure, and pneumonia. She is a DNR based off the previous admissions. 1245: Vital signs stable. Labs are significant for a lactic acid of 2.3 and she is Covid positive. Chest x-ray shows mildly improved aeration of the right lung base with persistent right-sided opacities. CT of the head within normal limits. Given the patient's extensive medical problems, increased age, lactic acidemia, and Covid positive, and severe weakness, the [facility] hospitalist team was consulted for admission. Dr. Gu will evaluate the patient Administered Medications Sodium Chloride (Nss) 500 mls @ 125 mls/hr IV .Q4H YOLANDA Stop: 11/01/20 10:14 Last Admin: 10/02/20 12:26 Dose: 125 mls/hr Documented by: [id number] Discontinued Medications Meclizine HCl (Meclizine Hcl 25 Mg Tab) 25 mg PO NOW STA Stop: 10/02/20 10:08 Last Admin: 10/02/20 12:26 Dose: 25 mg Documented by: [id number] Meclizine HCl (Meclizine Hcl 25 Mg Tab) Confirm Administered Dose 25 mg PO .STK- MED ONE Stop: 10/02/20 12:23 Last Admin: 10/02/20 12:27 Dose: Not Given Documented by: [id number] Ondansetron HCl (Ondansetron Inj 2 Mg/Ml 2 Ml Vial) 4 mg IV NOW STA Stop: 10/02/20 10:10 Last Admin: 10/02/20 12:26 Dose: 4 mg Documented by: [id number] Ondansetron HCl (Ondansetron Inj 2 Mg/Ml 2 Ml Vial) Confirm Administered Dose 4 mg .ROUTE .STK-MED ONE Stop: 10/02/20 12:17 Last Admin: 10/02/20 12:27 Dose: Not Given Documented by: [id number] Medical Decision Making Laboratory Data Result diagrams: 10/02/20 11:23 10/02/20 11:23 Lab Results 10/02/20 10/02/20 10/02/20 Range/Units 10:45 10:45 11:23 WBC (4.8-10.8) K/uL RBC (4.2-5.4) M/uL Hgb (12.0-16.0) g/dL Hct (37-47) % MCV (80-100) fL MCH (25-34) pg MCHC (32-36) g/dL RDW Std Deviation (36.4-46.3) fL RDW Coeff of Mandeep (11.5-14.5) % Plt Count (130-400) K/uL MPV (7.4-10.4) fL Immature Gran % (Auto) % Neut % (Auto) % Lymph % (Auto) % [place] % (Auto) % Eos % (Auto) % Baso % (Auto) % Neut # (Auto) (1.4-6.5) K/uL Lymph # (Auto) (1.2-3.4) K/uL [place] # (Auto) (0.11-0.59) K/uL Eos # (Auto) (0-0.5) K/uL Baso # (Auto) (0-0.2) K/uL Immature Gran # (Auto) (0.00-0.02) K/uL PT (9.0-12.0) Seconds INR (0.9-1.1) APTT (21.0-31.0) Seconds PTT Ratio VBG pH (7.36-7.41) VBG pCO2 (38-50) mmHg VBG pO2 mmHg VBG HCO3 mmol/L VBG O2 Saturation % VBG Base Excess mEq/L Barometric Pressure mm/Hg Sodium (136-145) mmol/L Potassium (3.5-5.1) mmol/L Chloride (98-107) mmol/L Carbon Dioxide (21-32) mmol/L Anion Gap (3-11) BUN (7-18) mg/dl Creatinine (0.6-1.2) mg/dl Est Cr Clr Drug Dosing ml/min Est GFR ( Amer) Est GFR (Non-Af Amer) BUN/Creatinine Ratio (10-20) Glucose (70-99) mg/dl Lactate (0.4-2.0) mmol/L Calcium (8.5-10.1) mg/dl Magnesium (1.8-2.4) mg/dl Total Bilirubin (0.2-1) mg/dl AST (15-37) U/L ALT (12-78) U/L Alkaline Phosphatase (45-117) U/L Troponin I (0-0.045) ng/ml Total Protein (6.4-8.2) gm/dl Albumin (3.4-5.0) gm/dl Globulin (2.5-4.0) gm/dl Albumin/Globulin Ratio (0.9-2) Procalcitonin < 0.05 (0-0.5) ng/ml COVID-19 Eval [facility] SARS-CoV-2, RNA, NAAT POSITIVE A* (NEGATIVE) 10/02/20 10/02/20 10/02/20 Range/Units 11:23 11:23 11:23 WBC 7.66 (4.8-10.8) K/uL RBC 2.72 L (4.2-5.4) M/uL Hgb 9.1 L (12.0-16.0) g/dL Hct 28.5 L (37-47) % MCV 104.8 H (80-100) fL MCH 33.5 (25-34) pg MCHC 31.9 L (32-36) g/dL RDW Std Deviation 70.6 H (36.4-46.3) fL RDW Coeff of Mandeep 18.6 H (11.5-14.5) % Plt Count 203 (130-400) K/uL MPV 9.0 (7.4-10.4) fL Immature Gran % (Auto) 0.5 % Neut % (Auto) 88.6 % Lymph % (Auto) 6.4 % [place] % (Auto) 4.4 % Eos % (Auto) 0.0 % Baso % (Auto) 0.1 % Neut # (Auto) 6.78 H (1.4-6.5) K/uL Lymph # (Auto) 0.49 L (1.2-3.4) K/uL [place] # (Auto) 0.34 (0.11-0.59) K/uL Eos # (Auto) 0.00 (0-0.5) K/uL Baso # (Auto) 0.01 (0-0.2) K/uL Immature Gran # (Auto) 0.04 H (0.00-0.02) K/uL PT 10.3 (9.0-12.0) Seconds INR 1.0 (0.9-1.1) APTT 23.9 (21.0-31.0) Seconds PTT Ratio 0.9 VBG pH (7.36-7.41) VBG pCO2 (38-50) mmHg VBG pO2 mmHg VBG HCO3 mmol/L VBG O2 Saturation % VBG Base Excess mEq/L Barometric Pressure mm/Hg Sodium 140 (136-145) mmol/L Potassium 4.6 (3.5-5.1) mmol/L Chloride 108 H (98-107) mmol/L Carbon Dioxide 27 (21-32) mmol/L Anion Gap 5.0 (3-11) BUN 23 H (7-18) mg/dl Creatinine 0.89 (0.6-1.2) mg/dl Est Cr Clr Drug Dosing 28.2 ml/min Est GFR ( Amer) 70.4 Est GFR (Non-Af Amer) 60.8 BUN/Creatinine Ratio 26.2 H (10-20) Glucose 123 H (70-99) mg/dl Lactate (0.4-2.0) mmol/L Calcium 8.3 L (8.5-10.1) mg/dl Magnesium 2.4 (1.8-2.4) mg/dl Total Bilirubin 0.8 (0.2-1) mg/dl AST 15 (15-37) U/L ALT 12 (12-78) U/L Alkaline Phosphatase 70 (45-117) U/L Troponin I < 0.015 (0-0.045) ng/ml Total Protein 6.4 (6.4-8.2) gm/dl Albumin 3.4 (3.4-5.0) gm/dl Globulin 3.0 (2.5-4.0) gm/dl Albumin/Globulin Ratio 1.1 (0.9-2) Procalcitonin (0-0.5) ng/ml COVID-19 Eval Order SARS-CoV-2, RNA, NAAT (NEGATIVE) 10/02/20 10/02/20 Range/Units 11:23 11:23 WBC (4.8-10.8) K/uL RBC (4.2-5.4) M/uL Hgb (12.0-16.0) g/dL Hct (37-47) % MCV (80-100) fL MCH (25-34) pg MCHC (32-36) g/dL RDW Std Deviation (36.4-46.3) fL RDW Coeff of Mandeep (11.5-14.5) % Plt Count (130-400) K/uL MPV (7.4-10.4) fL Immature Gran % (Auto) % Neut % (Auto) % Lymph % (Auto) % [place] % (Auto) % Eos % (Auto) % Baso % (Auto) % Neut # (Auto) (1.4-6.5) K/uL Lymph # (Auto) (1.2-3.4) K/uL [place] # (Auto) (0.11-0.59) K/uL Eos # (Auto) (0-0.5) K/uL Baso # (Auto) (0-0.2) K/uL Immature Gran # (Auto) (0.00-0.02) K/uL PT (9.0-12.0) Seconds INR (0.9-1.1) APTT (21.0-31.0) Seconds PTT Ratio VBG pH 7.35 L (7.36-7.41) VBG pCO2 48 (38-50) mmHg VBG pO2 29 mmHg VBG HCO3 26 mmol/L VBG O2 Saturation < 60.0 % VBG Base Excess 0 mEq/L Barometric Pressure 735.6 mm/Hg Sodium (136-145) mmol/L Potassium (3.5-5.1) mmol/L Chloride (98-107) mmol/L Carbon Dioxide (21-32) mmol/L Anion Gap (3-11) BUN (7-18) mg/dl Creatinine (0.6-1.2) mg/dl Est Cr Clr Drug Dosing ml/min Est GFR ( Amer) Est GFR (Non-Af Amer) BUN/Creatinine Ratio (10-20) Glucose (70-99) mg/dl Lactate 2.3 H* (0.4-2.0) mmol/L Calcium (8.5-10.1) mg/dl Magnesium (1.8-2.4) mg/dl Total Bilirubin (0.2-1) mg/dl AST (15-37) U/L ALT (12-78) U/L Alkaline Phosphatase (45-117) U/L Troponin I (0-0.045) ng/ml Total Protein (6.4-8.2) gm/dl Albumin (3.4-5.0) gm/dl Globulin (2.5-4.0) gm/dl Albumin/Globulin Ratio (0.9-2) Procalcitonin (0-0.5) ng/ml COVID-19 Eval Order SARS-CoV-2, RNA, NAAT (NEGATIVE) Imaging Data Radiologist's Impression: XR chest 1V portable HISTORY: 80 years-old Female SEPSIS acute sepsis COMPARISON: Chest radiograph 09/27/2020 TECHNIQUE: Portable AP view of the chest FINDINGS: Cardiomediastinal and hilar silhouettes are within normal limits. Calcified plaque the thoracic aorta. Trace right pleural effusion with persistent right lung base opacities, mildly improved. Unchanged minimal left lung base den sities. No pneumothorax, large pleural effusion or overt pulmonary edema. Mild chronic background interstitial coarsening. Unchanged loose body of the left subscapularis recess. Degenerative changes of the shoulders and spine. IMPRESSION: Mildly improved aeration of the right lung base with persistent right lung base opacities and trace right pleural effusion. ACT 112: Negative or not required by law. The above report was generated using voice recognition software. It may contain grammatical, syntax or spelling errors. Electronically signed by: Nathaniel Regalado M.D. 10/02/2020 10:43 AM Dictated: 10/02/201040Transcribed: 10/02/201040 CT head/brain wo con CLINICAL HISTORY: 80 years-old Female with dizziness murguia. Acute dizziness with headache TECHNIQUE: Multiple axial CT images of the head were obtained without contrast. A dose lowering technique was utilized adhering to the principles of ALARA. CT DOSE: 638.56 mGycm COMPARISON: Head CT 11/11/2019. FINDINGS: No acute intracranial hemorrhage, midline shift, intracranial mass, hydrocephalus, territorial ischemia or abnormal extra-axial collection. Age- related involutional changes with ex vacuo ventriculomegaly. Patchy white matter hypodensities suggest chronic microvascular ischemic disease. Cerebral vascular calcifications. The calvarium is intact. Unchanged appearance of the orbits with posteriorly displaced left-sided lens. The paranasal sinuses, mastoid air cells, and middle ear cavities are clear. IMPRESSION: No acute intracranial abnormality. ACT 112: Negative or not required by law. The above report was generated using voice recognition software. It may contain grammatical, syntax or spelling errors. Electronically signed by: Nathaniel Regalado M.D. 10/02/2020 12:11 PM Dictated: 10/02/20 1206Transcribed: 10/02/20 120 ECG Data Indication: + weakness Rate (beats per minute): 71 Rhythm: + normal sinus ECG Intervals/blocks: + Normal QRS, + Normal SC and + Normal QT-c ECG ST segments: + Normal ST segments MDM Narrative 1002: The patient was evaluated in room A12. A complete history and physical exam was performed. Patient was seen in full airborne precautions. Patient was seen in N95's, gloves, gowns, face shield by myself and staff. Cardiac monitoring: An order was placed for continuous cardiac monitoring. The monitor shows a rate of 70 with sinus rhythm EMR reviewed. Patient has a history of seizure disorder, dizziness, hyponatremia, acute respiratory failure, and pneumonia. She is a DNR based off the previous admissions. 1245: Vital signs stable. Labs are significant for a lactic acid of 2.3 and she is Covid positive. Chest x-ray shows mildly improved aeration of the right lung base with persistent right-sided opacities. CT of the head within normal limits. Given the patient's extensive medical problems, increased age, lactic acidemia, and Covid positive, and severe weakness, the [facility] hospitalist team was consulted for admission. Dr. Gu will evaluate the patient Impression & Plan 2019 novel coronavirus–infected pneumonia (NCIP)#8211;infected pneumonia (NCIP), Lactic acidemia Discharge Plan Visit Data Chief Complaint: Dizziness ED Provider: Bong Ramirse Discharge Problem: 2019 novel coronavirus–infected pneumonia (NCIP)#8211;infected pneumonia (NCIP), Lactic acidemia Patient Disposition: Admitted As Inpatient Forms Stand Alone Forms: My [facility] Prescriptions Prescriptions: No Action famotidine 20 mg tablet 20 mg PO DAILY RF: 0 amitriptyline 10 mg tablet 10 mg PO HS RF: 0 ibuprofen [Motrin IB] 200 mg tablet 200 mg PO Q8H PRN (Reason: pain) Qty: 90 RF: 0 baclofen 10 mg Tablet 10 mg PO TID PRN (Reason: Back Pain) RF: 0 atorvastatin 20 mg tablet 20 mg PO HS RF: 0 prednisone 5 mg tablet 5 mg PO HS RF: 0 ropinirole 0.25 mg tablet 0.25 mg PO HS RF: 0 fluticasone propionate 50 mcg/actuation spray,suspension 2 spray Intranasal DAILY RF: 0 albuterol sulfate [Ventolin HFA] 90 mcg/actuation Hfa Aerosol Inhaler 1 - 2 puff Inhalation Q4 PRN (Reason: Shortness Of Breath Or Wheezing) RF: 0 Spiriva Respimat 1.25 mcg/actuation mist 1 inh INHALATION DAILY RF: 0 magnesium hydroxide [Milk of Magnesia] 400 mg/5 mL Suspension 400 mg PO DAILY PRN (Reason: Constipation) RF: 0 oxycodone 5 mg tablet 5 mg PO Q6H PRN (Reason: Pain) RF: 0 levetiracetam 250 mg tablet 250 mg PO Q12H RF: 0 diclofenac sodium [Voltaren] 1 % Gel 1 g EXT QID PRN (Reason: joint pain) Qty: 100 RF: 0 Phospha 250 Neutral 250 mg Tablet 1 tab PO QID 5 Days Qty: 20 RF: 0 Advanced Probiotic 625 mg (10 billion cell) Capsule 2 cap PO DAILY 7 Days Qty: 14 RF: 0 guaifenesin [Mucinex] 600 mg Tablet Extended Release 12hr 600 mg PO Q12 7 Days Qty: 14 RF: 0 folic acid 1 mg Tablet 1 mg PO QAM 30 Days Qty: 30 RF: 0 cyanocobalamin (vitamin B-12) 500 mcg Tablet 1,000 mcg PO QAM 30 Days Qty: 60 RF: 0 Referrals Referrals: Zakia Galvez DO [Primary Care Provider] -
--- NOTE | 2020-10-02 10:44 | XRay Report ---
XR chest 1V portable HISTORY: 80 years-old Female SEPSIS acute sepsis COMPARISON: Chest radiograph 09/27/2020 TECHNIQUE: Portable AP view of the chest FINDINGS: Cardiomediastinal and hilar silhouettes are within normal limits. Calcified plaque the thoracic aorta . Trace right pleural effusion with persistent right lung base opacities, mildly improved. Unchanged minimal left lung base densities. No pneumothorax, large pleural effusion or overt pulmonary edema. M ild chronic background interstitial coarsening. Unchanged loose body of the left subscapularis recess . Degenerative changes of the shoulders and spine. IMPRESSION: Mildly improved aeration of the right lung base with persistent right lung base opacities and trace right pleural effusion. ACT 112: Negative or not required by law. The above report was generated using voice recognition software. It may contain grammatical, syntax o r spelling errors. Electronically signed by: Nathaniel Regalado M.D. 10/02/2020 10:43 AM
[2020-10-02 11:36] LABS: Base Excess VBG 0 mEq/L; HCO3 VBG 26 mmol/L; PCO2 VBG 48 mmHg (38-50); PO2 VBG 29 mmHg; pH VBG 7.35 (7.36-7.41)
--- NOTE | 2020-10-02 11:36 | Electrocardiogram Report ---
Test Reason : Blood Pressure : / mmHG Vent. Rate : 071 BPM Atrial Rate : 071 BPM P-R Int : 136 ms QRS Dur : 096 ms QT Int : 414 ms P-R-T Axes : 038 -19 064 degrees QTc Int : 449 ms Poor data quality, interpretation may be adversely affected Normal sinus rhythm Normal ECG When compared with ECG of 24-SEP-2020 20:10, No significant change was found Confirmed by Neo Gupta ([id number]) on 10/02/2020 11:36:08 AM Referred By: REFERRED SELF Confirmed By:Neo Gupta
[2020-10-02 11:40] LABS: Oxygen Saturation VBG < 60.0 %
[2020-10-02 11:50] LABS: Basophils # (auto) 0.01 K/uL (0-0.2); Basophils % (auto) 0.1 %; Hematocrit (blood only) 28.5 % (37-47); Hemoglobin 9.1 g/dL (12.0-16.0); Immature Granulocytes # (auto) 0.04 K/uL (0.00-0.02); Immature Granulocytes % (auto) 0.5 %; Lymphocytes # (auto) 0.49 K/uL (1.2-3.4); Lymphocytes % (auto) 6.4 %; Mean Corpuscular Hemoglobin 33.5 pg (25-34); Mean Corpuscular Hgb Conc 31.9 g/dL (32-36); Mean Corpuscular Volume 104.8 fL (80-100); Monocytes # (auto) 0.34 K/uL (0.11-0.59); Monocytes % (auto) 4.4 %; Neutrophils # (auto) 6.78 K/uL (1.4-6.5); Neutrophils % (auto) 88.6 %; Platelet Count 203 K/uL (130-400); RDW Coefficient of Variation 18.6 % (11.5-14.5); RDW Standard Deviation 70.6 fL (36.4-46.3); Red Blood Count 2.72 M/uL (4.2-5.4); White Blood Count 7.66 K/uL (4.8-10.8)
[2020-10-02 11:52] LABS: Alanine Aminotransferase 12 U/L (12-78); Albumin Level 3.4 gm/dl (3.4-5.0); Aspartate Aminotransferase 15 U/L (15-37); BUN Creatinine Ratio 26.2 (10-20); Blood Urea Nitrogen 23 mg/dl (7-18); Calcium 8.3 mg/dl (8.5-10.1); Carbon Dioxide 27 mmol/L (21-32); Chloride 108 mmol/L (98-107); Creatinine Clr Calc Pharmacy 28.2 ml/min; Est GFR (African American) 70.4; Est GFR (Non-African American) 60.8; Glucose 123 mg/dl (70-99); Magnesium 2.4 mg/dl (1.8-2.4); Potassium 4.6 mmol/L (3.5-5.1); Sodium 140 mmol/L (136-145)
[2020-10-02 11:54] LABS: Partial Thromboplastin Ratio 0.9; Partial Thromboplastin Time 23.9 Seconds (21.0-31.0); Prothrombin Time 10.3 Seconds (9.0-12.0)
[2020-10-02 11:57] LABS: Albumin Globulin Ratio 1.1 (0.9-2); Alkaline Phosphatase 70 U/L (45-117); Bilirubin,Total 0.8 mg/dl (0.2-1); Total Protein 6.4 gm/dl (6.4-8.2); Troponin I < 0.015 ng/ml (0-0.045)
--- NOTE | 2020-10-02 12:12 | CT Scan Report ---
CT head/brain wo con CLINICAL HISTORY: 80 years-old Female with dizziness murguia. Acute dizziness with headache TECHNIQUE: Multiple axial CT images of the head were obtained without contrast. A dose lowering tech nique was utilized adhering to the principles of ALARA. CT DOSE: 638.56 mGycm COMPARISON: Head CT 11/11/2019. FINDINGS: No acute intracranial hemorrhage, midline shift, intracranial mass, hydrocephalus, territorial ischem ia or abnormal extra-axial collection. Age-related involutional changes with ex vacuo ventriculomegal y. Patchy white matter hypodensities suggest chronic microvascular ischemic disease. Cerebral vascula r calcifications. The calvarium is intact. Unchanged appearance of the orbits with posteriorly displaced left-sided pio s. The paranasal sinuses, mastoid air cells, and middle ear cavities are clear. IMPRESSION: No acute intracranial abnormality. ACT 112: Negative or not required by law. The above report was generated using voice recognition software. It may contain grammatical, syntax o r spelling errors. Electronically signed by: Nathaniel Regalado M.D. 10/02/2020 12:11 PM
[2020-10-02] MEDS ORDERED: ONDANSETRON INJ 2 MG/ML 2 ML VIAL ONE (12:16)
[2020-10-02] MEDS ORDERED: MECLIZINE HCL 25 MG TAB PO ONE (12:22)
[2020-10-02] MEDS: SODIUM CHLORIDE 0.9% 500 ML IV SCH ×3 (12:26→23:08)
--- NOTE | 2020-10-02 12:57 | History & Physical Report ---
Date of Service October 02, 2020 Assessment & Plan (1) COVID-19: Recent admission 09/24 - 09/28 for pneumonia with exacerbation of COPD. SARS-CoV-2 PCR ([facility]) was negative on 09/24. She was treated for community acquired pneumonia with ceftriaxone and doxycycline with improvement. Now presents to ED with generalized weakness and dizziness. SARS-CoV-2 PCR today is positive. Patient feels that pulmonary status back to baseline. O2 saturations are > 90% on RA. Chest x-ray shows chronic changes and improved infiltrates. Experiencing malaise, myalgias, nausea, and vomiting which could be secondary to COVID-19. COVID-specific therapies like dexamethasone, remdesivir, CCP not indicated at this time in light of adequate oxygenation. Airborne / contact isolation. Monitor for change of status. Supportive therapies as necessary. Family (primary contact Christine who is [id number]) notified about COVID-19 diagnosis and need to quarantine. (2) Dizziness: Patient complains of dizziness. Received meclizine in ED without improvement. No nystagmus on exam. CT head negative. Sounds like symptoms are more likely due to lightheadedness rather than vertigo. Management of dehydration as discussed below. (3) Dehydration: Experiencing nausea and vomiting. Also had diarrhea a few days ago. Oral mucosa dry. BUN elevated. Appears to be dehydrated. Check orthostatic vital signs. IV fluids. Check stools for C diff if diarrhea recurs. Follow. (4) Lactic acidemia: Serum lactate 2.3. Hemodynamically stable. Does not appear to be septic. IV fluids for dehydration. Follow. (5) COPD (chronic obstructive pulmonary disease): Respiratory status appears to be stable. Continue tiotropium, albuterol PRN, prednisone. (6) Seizure disorder: No recent seizures. Continue levetiracetam. (7) Rheumatoid arthritis: Continue usual dose of prednisone and analgesics. (8) Anemia of chronic disease: Hgb stable @ 9.1. (9) Severe protein-calorie malnutrition: Wt 36 kg. BMI 16.0. Diet / supplements as tolerated. (10) Ambulatory dysfunction: History of falls. Generalized weakness + RA. PT / OT evals. (11) DNR (do not resuscitate): Per patient's wishes. (12) DVT prophylaxis: SQ heparin. Ambulate as able. (13) Discharge planning issues: Discharge disposition to be determined. Internal Medicine follow-up with Dr. Galvez. Influenza and pneumococcal vaccinations are current. [id number] Christine given update by phone. History of Present Illness Chief Complaint: weakness, dizziness Primary Care Provider: Zakia Galvez DO 80 YO female followed by Dr. Galvez for primary care. History of COPD, RA on chronic prednisone, and other problems noted below. Admitted to [facility] 09/24/20 - 09/28/20 with pneumonia + exacerbation of COPD. SARS-CoV-2 PCR ([facility]) was negative on 09/24. She was treated for community acquired pneumonia with ceftriaxone and doxycycline with improvement. Also treated with IV --> PO steroids and discharged on her usual maintenance dose of prednisone. Discharged on doxycycline to complete course of therapy. Patient returned to ED today with generalized weakness and dizziness. Dizziness initially interpreted as vertigo, but she describes more of a feeling of lightheadedness to me at time of my assessment. Received a dose of meclizine in ED which made her a bit drowsy, but did not help the dizziness. Denies fever. Cough now similar to her chronic cough from COPD. Denies SOB or chest pain. Has some nausea. Vomited yesterday, but not today. Had some loose stools a few days ago, none today. No melena or hematochezia. SARS-CoV-2 PCR performed in ED today was positive. Allergies Allergy/AdvReac Type Severity Reaction Status Date / Time pollen extracts Allergy Mild SEASONAL-ITCHY Verified 09/24/20 23:02 EYES,RUNNY NOSE Home Medications Medication Instructions Recorded Confirmed Type albuterol sulfate [Ventolin HFA] 1 - 2 puff INHALATION Q4 PRN 07/13/18 10/02/20 History atorvastatin 20 mg PO HS 07/13/18 10/02/20 History baclofen 10 mg PO TID PRN 07/13/18 10/02/20 History fluticasone propionate 2 spray INTRANASAL DAILY 07/13/18 10/02/20 History prednisone 5 mg PO HS 07/13/18 10/02/20 History ropinirole 0.25 mg PO HS 07/13/18 10/02/20 History amitriptyline 10 mg PO HS 11/11/19 10/02/20 History famotidine 20 mg PO DAILY 11/11/19 10/02/20 History ibuprofen [Motrin IB] 200 mg PO Q8H PRN #90 tab 11/17/19 10/02/20 Rx Spiriva Respimat 1 inh INHALATION DAILY 07/09/20 10/02/20 History magnesium hydroxide [Milk of 400 mg PO DAILY PRN 07/09/20 09/24/20 History Magnesia] oxycodone 5 mg PO Q6H PRN 07/09/20 10/02/20 History levetiracetam 250 mg PO Q12H 09/24/20 10/02/20 History L.acidop,mila,lac,rha-B.lac,karine 2 cap PO DAILY 7 Days #14 cap 09/28/20 10/02/20 Rx [Advanced Probiotic] cyanocobalamin (vitamin B-12) 1,000 mcg PO QAM 30 Days #60 tab 09/28/20 10/02/20 Rx diclofenac sodium [Voltaren] 1 g EXT QID PRN #100 g 09/28/20 10/02/20 Rx folic acid 1 mg PO QAM 30 Days #30 tab 09/28/20 10/02/20 Rx guaifenesin [Mucinex] 600 mg PO Q12 7 Days #14 tab 09/28/20 10/02/20 Rx sod phos di, mono-K phos mono 1 tab PO QID 5 Days #20 tab 09/28/20 10/02/20 Rx [Phospha 250 Neutral] Past Med/Surg History Medical History (Updated 10/02/20 @ 15:33 by Jose D Gu MD) Allergic rhinitis Anemia of chronic disease Anxiety Blind right eye COPD (chronic obstructive pulmonary disease) DNR (do not resuscitate) Hip fracture Hyponatremia Restless leg syndrome Rheumatoid arthritis Seizure disorder Severe protein-calorie malnutrition Tobacco use disorder Surgical History (Updated 10/02/20 @ 15:33 by Jose D Gu MD) Status post appendectomy Status post cataract extraction Status post exploratory laparotomy "x3 for adhesions" Status post hysterectomy Status post ovarian cystectomy Status post tonsillectomy Status post tubal ligation Family History (Updated 10/02/20 @ 15:12 by Jose D Gu MD) Brother Cancer Brother Diabetes Sister Diabetes Sister Heart disease Sister Stroke Mother Heart disease Other Family history non-contributory Social History Smoking Status: Current every day smoker Tobacco Type: Cigarettes Cigarettes Per Day: 20; Number of Years Since Quit: 29; Second Hand Exposure: Yes; Hx Alcohol Use: No Hx Substance Use: No Preferred Language: Maltese Communication Ability: Effective Visual Impairment: Blindness Manager Dish Required: No Beliefs That Will Affect Care: None marital status: / Current Living Situation: Alone Current Living Situation Comment: in apartment Feels Safe at Home: Yes Assistive Devices: Walker Review of Systems Constitutional: + body aches and + malaise; no fever and no weight loss Eyes: no diplopia and no worsening vision (chronic vision loss right eye) Ear, Nose, Mouth, Throat: + nasal congestion (chronic); no sore throat Respiratory: as per Subjective / HPI Cardiovascular: no chest pain, no palpitations and no edema Gastrointestinal: as per Subjective / HPI Genitourinary: + dysuria (mild); no hematuria Musculoskeletal: + joint pain (RA) and + myalgia Integumentary: no rash and no new lesions Neurologic: + headache(s) Endocrine: no polydipsia and no polyuria Hematologic / Lymphatic: + easy bleeding and + easy bruising; no lymphadenopathy Physical Exam Physical Exam: VS- as noted Constitutional- elderly, thin female; no acute distress Eyes- opacification right cornea; left pupil reactive; anicteric sclerae, conjunctivae normal ENMT- external ear and nose normal; dry oral mucosa; edentulous wearing dentures Neck- trachea midline; no thyromegaly Respiratory- scattered rales; diffuse mild wheezing Cardiovascular- distant heart sounds; RRR, no murmur/gallop/rub appreciated; no JVD; no pretibial edema; normal capillary refill Abdomen- normal bowel sounds, soft, nontender, nondistended; no palpable masses or hepatosplenomegaly Musculoskeletal- no cyanosis Skin- warm & dry; normal color; no rashes; multiple bruises Neurologic- no nystagmus; no facial palsy; no dysarthria or aphasia; generalized motor weakness; patellar DTR's 1/2 bilaterally Psychiatric- alert, oriented to person, place, year, president Lymphatic- no cervical adenopathy Results & Data Results & Data ([facility]) Vital Signs (Past 12 Hours) Vital Signs Temp Pulse Resp BP Pulse Ox 10/02/20 12:30 70 15 144/49 H 97 10/02/20 12:07 65 10 L 173/63 H 98 10/02/20 09:58 36.6 C 70 20 163/64 H 95 Laboratory Results Laboratory Results - last 24 hr 10/02/20 10/02/20 10/02/20 10:45 10:45 11:23 WBC RBC Hgb Hct MCV MCH MCHC RDW Std Deviation RDW Coeff of Mandeep Plt Count MPV Immature Gran % (Auto) Neut % (Auto) Lymph % (Auto) [place] % (Auto) Eos % (Auto) Baso % (Auto) Neut # (Auto) Lymph # (Auto) [place] # (Auto) Eos # (Auto) Baso # (Auto) Immature Gran # (Auto) PT INR APTT PTT Ratio VBG pH VBG pCO2 VBG pO2 VBG HCO3 VBG O2 Saturation VBG Base Excess Barometric Pressure Sodium Potassium Chloride Carbon Dioxide Anion Gap BUN Creatinine Est Cr Clr Drug Dosing Est GFR ( Amer) Est GFR (Non-Af Amer) BUN/Creatinine Ratio Glucose Lactate Calcium Magnesium Total Bilirubin AST ALT Alkaline Phosphatase Troponin I Total Protein Albumin Globulin Albumin/Globulin Ratio Procalcitonin < 0.05 COVID-19 Eval Order Covid19 [facility]Now [facility] SARS-CoV-2, RNA, NAAT POSITIVE A* 10/02/20 10/02/20 10/02/20 11:23 11:23 11:23 WBC 7.66 RBC 2.72 L Hgb 9.1 L Hct 28.5 L MCV 104.8 H MCH 33.5 MCHC 31.9 L RDW Std Deviation 70.6 H RDW Coeff of Mandeep 18.6 H Plt Count 203 MPV 9.0 Immature Gran % (Auto) 0.5 Neut % (Auto) 88.6 Lymph % (Auto) 6.4 [place] % (Auto) 4.4 Eos % (Auto) 0.0 Baso % (Auto) 0.1 Neut # (Auto) 6.78 H Lymph # (Auto) 0.49 L [place] # (Auto) 0.34 Eos # (Auto) 0.00 Baso # (Auto) 0.01 Immature Gran # (Auto) 0.04 H PT 10.3 INR 1.0 APTT 23.9 PTT Ratio 0.9 VBG pH VBG pCO2 VBG pO2 VBG HCO3 VBG O2 Saturation VBG Base Excess Barometric Pressure Sodium 140 Potassium 4.6 Chloride 108 H Carbon Dioxide 27 Anion Gap 5.0 BUN 23 H Creatinine 0.89 Est Cr Clr Drug Dosing 28.2 Est GFR ( Amer) 70.4 Est GFR (Non-Af Amer) 60.8 BUN/Creatinine Ratio 26.2 H Glucose 123 H Lactate Calcium 8.3 L Magnesium 2.4 Total Bilirubin 0.8 AST 15 ALT 12 Alkaline Phosphatase 70 Troponin I < 0.015 Total Protein 6.4 Albumin 3.4 Globulin 3.0 Albumin/Globulin Ratio 1.1 Procalcitonin COVID-19 Eval Order SARS-CoV-2, RNA, NAAT 10/02/20 10/02/20 11:23 11:23 WBC RBC Hgb Hct MCV MCH MCHC RDW Std Deviation RDW Coeff of Mandeep Plt Count MPV Immature Gran % (Auto) Neut % (Auto) Lymph % (Auto) [place] % (Auto) Eos % (Auto) Baso % (Auto) Neut # (Auto) Lymph # (Auto) [place] # (Auto) Eos # (Auto) Baso # (Auto) Immature Gran # (Auto) PT INR APTT PTT Ratio VBG pH 7.35 L VBG pCO2 48 VBG pO2 29 VBG HCO3 26 VBG O2 Saturation < 60.0 VBG Base Excess 0 Barometric Pressure 735.6 Sodium Potassium Chloride Carbon Dioxide Anion Gap BUN Creatinine Est Cr Clr Drug Dosing Est GFR ( Amer) Est GFR (Non-Af Amer) BUN/Creatinine Ratio Glucose Lactate 2.3 H* Calcium Magnesium Total Bilirubin AST ALT Alkaline Phosphatase Troponin I Total Protein Albumin Globulin Albumin/Globulin Ratio Procalcitonin COVID-19 Eval Order SARS-CoV-2, RNA, NAAT Diagnostic Findings PORTABLE CHEST X-RAY Reviewed by the undersigned and formally interpreted by Radiology: FINDINGS: Cardiomediastinal and hilar silhouettes are within normal limits. Calcified plaque the thoracic aorta. Trace right pleural effusion with persistent right lung base opacities, mildly improved. Unchanged minimal left lung base densities. No pneumothorax, large pleural effusion or overt pulmonary edema. Mild chronic background interstitial coarsening. Unchanged loose body of the left subscapularis recess. Degenerative changes of the shoulders and spine. IMPRESSION: Mildly improved aeration of the right lung base with persistent right lung base opacities and trace right pleural effusion. Electronically signed by: Nathaniel Regalado M.D. 10/02/2020 10:[address] HEAD FINDINGS: No acute intracranial hemorrhage, midline shift, intracranial mass, hydrocephalus, territorial ischemia or abnormal extra-axial collection. Age- related involutional changes with ex vacuo ventriculomegaly. Patchy white matter hypodensities suggest chronic microvascular ischemic disease. Cerebral vascular calcifications. The calvarium is intact. Unchanged appearance of the orbits with posteriorly displaced left-sided lens. The paranasal sinuses, mastoid air cells, and middle ear cavities are clear. IMPRESSION: No acute intracranial abnormality. Electronically signed by: Nathaniel Regalado M.D. 10/02/2020 12:11 PM ECG Additional Comments: EKG performed at 0958 reviewed and demonstrated NSR at 70 / min, no acute changes. Code Status & VTE Plan Code Status DNR per review of old records and confirmation with patient. VTE Prophylaxis Plan VTE Prophylaxis will be ordered: Yes
[2020-10-02] MEDS ORDERED: ACETAMINOPHEN 325 MG TAB PO PRN (19:20)
[2020-10-02] MEDS ORDERED: IBUPROFEN 200 MG TAB PO PRN (19:20)
[2020-10-02] MEDS ORDERED: ALBUTEROL HFA 8 GM INHALER INH PRN (19:20)
[2020-10-02] MEDS ORDERED: DICLOFENAC SOD 1% GEL 100 GM TUBE EXT PRN (19:20)
[2020-10-02] MEDS ORDERED: ONDANSETRON INJ 2 MG/ML 2 ML VIAL IV PRN (19:20)
[2020-10-02] MEDS: LACTATED RINGER'S 1,000 ML IV SCH (19:30)
[2020-10-02] MEDS ORDERED: INFLUENZA VIRUS QUAD VACCINE 0.5 ML SYR IM ONE (20:06)
[2020-10-02] MEDS ORDERED: INFLUENZA ADMINISTRATION CHARGE ONE (20:06)
[2020-10-02] MEDS: rOPINIRole HCL 0.25 MG TABLET PO SCH (22:34)
[2020-10-02] MEDS: guaiFENesin 600 MG TABCR PO SCH (22:35)
[2020-10-02] MEDS: predniSONE 5 MG TAB PO SCH (22:35)
[2020-10-02] MEDS: ATORVASTATIN 20 MG TAB PO SCH (22:35)
[2020-10-02] MEDS: levETIRAcetam 250 MG TAB PO SCH (22:36)
[2020-10-02] MEDS: AMITRIPTYLINE HCL 10 MG TAB PO SCH (22:36)
[2020-10-02] MEDS: HEPARIN SOD 5,000 UNIT/0.5 ML VIAL SQ SCH (22:37)
[2020-10-02] MEDS: POT PHOSPHATE MONOBASIC W/ SOD TAB PO SCH (22:37)
[2020-10-03] MEDS ORDERED: ACETAMINOPHEN 325 MG TAB PO PRN (07:52)
[2020-10-03 08:16] LABS: Eosinophils # (auto) 0.02 K/uL (0-0.5); Eosinophils % (auto) 0.5 %; Hematocrit (blood only) 23.9 % (37-47); Hemoglobin 7.7 g/dL (12.0-16.0); Immature Granulocytes # (auto) 0.01 K/uL (0.00-0.02); Immature Granulocytes % (auto) 0.3 %; Lymphocytes # (auto) 0.23 K/uL (1.2-3.4); Lymphocytes % (auto) 5.8 %; Mean Corpuscular Hemoglobin 33.8 pg (25-34); Mean Corpuscular Hgb Conc 32.2 g/dL (32-36); Mean Corpuscular Volume 104.8 fL (80-100); Mean Platelet Volume 9.2 fL (7.4-10.4); Monocytes # (auto) 0.36 K/uL (0.11-0.59); Monocytes % (auto) 9.1 %; Neutrophils # (auto) 3.33 K/uL (1.4-6.5); Neutrophils % (auto) 84.3 %; Nucleated RBC # (auto) 0.04 K/uL (0-0); Nucleated RBC % (auto) 0.9 %; Platelet Count 168 K/uL (130-400); RDW Standard Deviation 71.6 fL (36.4-46.3); Red Blood Count 2.28 M/uL (4.2-5.4); White Blood Count 3.95 K/uL (4.8-10.8)
[2020-10-03 08:33] LABS: D Dimer 1070 ug/L FEU (0-500)
[2020-10-03 08:36] LABS: BUN Creatinine Ratio 38.2 (10-20); Blood Urea Nitrogen 19 mg/dl (7-18); C Reactive Protein < 0.29 mg/dl (0-0.29); Calcium 7.7 mg/dl (8.5-10.1); Carbon Dioxide 25 mmol/L (21-32); Chloride 112 mmol/L (98-107); Creatinine Clr Calc Pharmacy 52.7 ml/min; Est GFR (African American) 105.9; Est GFR (Non-African American) 91.4; Glucose 87 mg/dl (70-99); Potassium 4.1 mmol/L (3.5-5.1); Sodium 141 mmol/L (136-145)
[2020-10-03 08:37] LABS: RBC Morphology Unremarkable
[2020-10-03 08:52] LABS: Ferritin 51.1 ng/ml (8-388); Phosphorus 3.2 mg/dl (2.5-4.9)
[2020-10-03] MEDS: FLUTICASONE PROPIONATE NA SPR 16 GM BTL SCH (08:57)
[2020-10-03] MEDS: POT PHOSPHATE MONOBASIC W/ SOD TAB PO SCH ×4 (08:58→20:58)
[2020-10-03] MEDS: FOLIC ACID 1 MG TAB PO SCH (08:58)
[2020-10-03] MEDS: FAMOTIDINE 20 MG TAB PO SCH (08:58)
[2020-10-03] MEDS: ADVANCED PROBIOTIC 1250 MG CAPSULE PO SCH (08:58)
[2020-10-03] MEDS: levETIRAcetam 250 MG TAB PO SCH ×2 (08:58→20:59)
[2020-10-03] MEDS: HEPARIN SOD 5,000 UNIT/0.5 ML VIAL SQ SCH (08:58)
[2020-10-03] MEDS: CYANOCOBALAMIN 500 MCG TABLET (VITAMIN B-12) PO SCH (08:58)
[2020-10-03] MEDS: guaiFENesin 600 MG TABCR PO SCH ×2 (08:59→20:59)
[2020-10-03] MEDS: UMECLIDINIUM BROMIDE 62.5MCG/BLISTER 7 PUFFS/INHALER INH SCH (08:59)
[2020-10-03] MEDS ORDERED: Heparin IV Standard *NO* Bolus IV SCH (09:04)
[2020-10-03] MEDS ORDERED: HEPARIN SODIUM/DEXTROSE 25,000 UNITS/500 ML BAG IV SCH (09:15)
[2020-10-03 09:46] LABS: INR 1.1 (0.9-1.1); Partial Thromboplastin Time 28.6 Seconds (21.0-31.0); Prothrombin Time 11.3 Seconds (9.0-12.0)
[2020-10-03] MEDS: LACTATED RINGER'S 1,000 ML IV SCH (10:01)
[2020-10-03] MEDS: oxyCODONE HCL IR 5 MG TAB (IMMEDIATE RELEASE) PO PRN ×2 (12:41→23:08)
--- NOTE | 2020-10-03 13:59 | Hospitalist Progress Note ---
Date of Service October 03, 2020 Assessment & Plan (1) COVID-19: Elevated D-dimer - Recent admission 09/24 - 09/28 for pneumonia with exacerbation of COPD. SARS-CoV-2 PCR ([facility]) was negative on 09/24/2020. She was treated for community acquired pneumonia with ceftriaxone and doxycycline with improvement. presented to ED on 10/03/2020 with generalized weakness and dizziness with positive SARS-CoV-2 PCR positive. on admission, patient feels that pulmonary status back to baseline and O2 saturations are > 90% on RA. her admission Chest x-ray shows chronic changes and improved infiltrates. as per admitting physician Dr. Gu that patient "experiencing malaise, myalgias, nausea, and vomiting which could be secondary to COVID-19." according to admission physician Dr. Gu, COVID-specific therapies like dexamethasone, remdesivir, CCP not indicated because of adequate oxygenation. she is on airborne and contact isolation and Dr. Gu notified her family (primary contact Christine who is [id number]) about COVID-19 diagnosis and need to quarantine. -10/03/2020: assessment Patient seen and examined at bedside. She is on room air. has occasional dry cough. IV heparin running because elevated D-dimer which was in her morning labs as requested by previous admitting physician. unlikely that there is any pulmonary embolism because she is not hypoxic but continue to assess her oxygen requirements while in the hospital. IV fluids are stopped this AM for monitoring the blood pressures which are also stable. patient does not have current dizziness but she reports she lives by herself at home and she did report previously of almost 1 week of feeling dizziness. Patient denies other symptoms on review of systems - she does not have acute pain. While she is medically stable, hospitalist have concerns of her self-care at home. While she appears to be medically stable and currently comfortable on the bed, patient will need assessment by PT/OT on mobility and also case management to assess whether any additional services needed prior to a hospital discharge - This re- assessments to take place going into tomorrow Dizziness -she received meclizine in the ED, no nystagmus on admission exam, admission CT head negative. the impression of admitting physician that her symptoms at home were more like lightheadedness rather than dizziness. she received IV fluids -monitor any further symptoms off IV fluids Dehydration -admitting physician commented patient had previously experienced nausea and vomiting, and diarrhea a few days ago. -was given IV fluids Lactic acidemia (present on admission) -admission Serum lactate 2.3, Hemodynamically stable, did not appear to be septic in ED -resolved with IV fluids COPD (chronic obstructive pulmonary disease) -Continue tiotropium, albuterol PRN, prednisone. Seizure disorder - No recent seizures, Continue home dose levetiracetam. Rheumatoid arthritis -Continue usual dose of prednisone and analgesics. Anemia of chronic disease -Hgb on admission as 9.1 Severe protein-calorie malnutrition, with BMI of 16 - admission Wt 36 kg. BMI 16.0. - Diet / supplements as tolerated. Ambulatory dysfunction -History of falls. -PT / OT evals. DNR (do not resuscitate)/DNI -as discussed by admitting physician with patient DVT prophylaxis on IV heparin Admission and Anticipated Discharge Date Admission Date: October 02, 2020 Subjective Patient seen and examined at bedside. She is on room air. has occasional dry cough. IV heparin running because elevated D-dimer which was in her morning labs as requested by previous admitting physician. unlikely that there is any pulmonary embolism because she is not hypoxic but continue to assess her oxygen requirements while in the hospital. IV fluids are stopped this AM for monitoring the blood pressures which are also stable. patient does not have current dizziness but she reports she lives by herself at home and she did report previously of almost 1 week of feeling dizziness. Patient denies other symptoms on review of systems - she does not have acute pain. While she is medically stable, hospitalist have concerns of her self-care at home. While she appears to be medically stable and currently comfortable on the bed, patient will need assessment by PT/OT on mobility and also case management to assess whether any additional services needed prior to a hospital discharge - This re-assessments to take place going into tomorrow Review of Systems Review of Systems: All systems reviewed & are unremarkable except as noted in Subjective Physical Exam Constitutional: + frail appearing Eyes: PERRL, conjunctivae normal, anicteric sclerae ENMT: external ear and nose normal, oropharynx normal Neck: normal visual inspection Respiratory: normal respiratory effort Cardiovascular: Rate/Rhythm: regular rate Gastrointestinal (Abdomen): normal bowel sounds, soft, nontender, no hepatosplenomegaly Musculoskeletal: Head/Neck/Chest: normocephalic and head atraumatic Neurologic: PERRL, EOMI, accommodation nl, no face palsy, no dysarthria Psychiatric: A+Ox3, euthymic affect Results & Data Results & Data ([facility]) Vital Signs (Past 12 Hours) Vital Signs Temp Pulse Pulse Pulse Resp BP Pulse Ox 10/03/20 12:37 36.5 C 74 22 137/84 95 10/03/20 11:30 36.5 C 72 16 144/74 H 90 10/03/20 08:05 36.4 C L 68 20 148/61 H 92 10/03/20 07:00 66
[2020-10-03 18:34] LABS: Partial Thromboplastin Ratio 4.9
[2020-10-03 18:37] LABS: Partial Thromboplastin Time 137.2 Seconds (21.0-31.0)
[2020-10-03] MEDS: ATORVASTATIN 20 MG TAB PO SCH (20:59)
[2020-10-03] MEDS: rOPINIRole HCL 0.25 MG TABLET PO SCH (21:00)
[2020-10-03] MEDS: AMITRIPTYLINE HCL 10 MG TAB PO SCH (21:00)
[2020-10-03] MEDS: predniSONE 5 MG TAB PO SCH (21:00)
[2020-10-04 01:14] LABS: Partial Thromboplastin Time 27.9 Seconds (21.0-31.0)
[2020-10-04] MEDS ORDERED: HEPARIN (PORCINE) 1000 UNIT/ML 10 ML (CATH LAB USE ONLY) IV ONE (01:15)
[2020-10-04 01:28] LABS: Appearance Urine Clear (Clear); Bacteria Urine Automated Negative (Negative); Bilirubin Urine Negative (Negative); Blood Urine Negative (Negative); Color Urine Yellow; Epithelial Cell Urine Auto >30 /lpf (0-5); Glucose Urine UA Negative (Negative); Ketones Urine Negative (Negative); Leukocyte Esterase Urine 2+ (Negative); Nitrite Urine Negative (Negative); Protein Urine Negative (Negative); RBC Urine Automated 0-4 /hpf (0-4); Specific Gravity Urine 1.007 (1.000-1.030); Urobilinogen Urine Negative (Negative)
[2020-10-04] MEDS ORDERED: HEPARIN IV BOLUS 3,000 UNITS in SYRINGE 0 ML IV ONE (01:45)
[2020-10-04] MEDS: FLUTICASONE PROPIONATE NA SPR 16 GM BTL SCH (07:50)
[2020-10-04] MEDS: FOLIC ACID 1 MG TAB PO SCH (07:51)
[2020-10-04] MEDS: UMECLIDINIUM BROMIDE 62.5MCG/BLISTER 7 PUFFS/INHALER INH SCH (07:51)
[2020-10-04] MEDS: levETIRAcetam 250 MG TAB PO SCH ×2 (07:52→19:30)
[2020-10-04] MEDS: CYANOCOBALAMIN 500 MCG TABLET (VITAMIN B-12) PO SCH (07:52)
[2020-10-04] MEDS: FAMOTIDINE 20 MG TAB PO SCH (07:52)
[2020-10-04] MEDS: ADVANCED PROBIOTIC 1250 MG CAPSULE PO SCH (07:52)
[2020-10-04] MEDS: POT PHOSPHATE MONOBASIC W/ SOD TAB PO SCH ×4 (07:52→19:30)
[2020-10-04] MEDS: guaiFENesin 600 MG TABCR PO SCH ×2 (07:52→19:31)
[2020-10-04 08:12] LABS: Partial Thromboplastin Ratio > 5.0
[2020-10-04 08:46] LABS: Partial Thromboplastin Time > 139.0 Seconds (21.0-31.0)
[2020-10-04 10:43] LABS: Partial Thromboplastin Ratio 3.5
[2020-10-04 10:49] LABS: D Dimer 1160 ug/L FEU (0-500)
[2020-10-04 10:50] LABS: Partial Thromboplastin Time 97.6 Seconds (21.0-31.0)
[2020-10-04] MEDS ORDERED: SODIUM CHLORIDE 0.9% 250 ML IV PRN (13:26)
[2020-10-04] MEDS ORDERED: diphenhydrAMINE 50 MG/ML VIAL IV SCH (13:30)
--- NOTE | 2020-10-04 14:04 | Hospitalist Progress Note ---
Date of Service October 04, 2020 Assessment & Plan (1) COVID-19: Elevated D-dimer Anemia of chronic disease - Recent admission 09/24 - 09/28 for pneumonia with exacerbation of COPD. SARS-CoV-2 PCR ([facility]) was negative on 09/24/2020. She was treated for community acquired pneumonia with ceftriaxone and doxycycline with improvement. presented to ED on 10/03/2020 with generalized weakness and dizziness with positive SARS-CoV-2 PCR positive. on admission, patient feels that pulmonary status back to baseline and O2 saturations are > 90% on RA. her admission Chest x-ray shows chronic changes and improved infiltrates. as per admitting physician Dr. Gu that patient "experiencing malaise, myalgias, nausea, and vomiting which could be secondary to COVID-19." according to admission physician Dr. Gu, COVID-specific therapies like dexamethasone, remdesivir, CCP not indicated because of adequate oxygenation. she is on airborne and contact isolation and Dr. Gu notified her family (primary contact Christine who is [id number]) about COVID-19 diagnosis and need to quarantine. Hgb on admission as 9.1 -10/03/2020: assessment Patient seen and examined at bedside. She is on room air. has occasional dry cough. IV heparin running because elevated D-dimer which was in her morning labs as requested by previous admitting physician. unlikely that there is any pulmonary embolism because she is not hypoxic but continue to assess her oxygen requirements while in the hospital. IV fluids are stopped this AM for monitoring the blood pressures which are also stable. patient does not have current dizziness but she reports she lives by herself at home and she did report previously of almost 1 week of feeling dizziness. Patient denies other symptoms on review of systems - she does not have acute pain. While she is medically stable, hospitalist have concerns of her self-care at home. While she appears to be medically stable and currently comfortable on the bed, patient will need assessment by PT/OT on mobility and also case management to assess whether any additional services needed prior to a hospital discharge 10/04/2020: patient had supratherapeutic PTT while IV heparin, remains on room air oxygen, D-dimer downtrending. she is chronically anemic. She reports that she is able to ambulate okay to bathroom but continues to feel "dizziness" symptoms when she ambulates. Since patient has some baseline anemia (usually between 8 to 9) and hgb declined to 7.7 (although no report of acute blood loss at this time) on 10/04/2020 labs, 1 unit of PRBC to be given on 10/04/2020 and will see if improving her anemia relieves the reported dizziness symptoms. No arrhythmias noted on telemetry to date. Updated her daughter in law by telephone. Dizziness -she received meclizine in the ED, no nystagmus on admission exam, admission CT head negative. the impression of admitting physician that her symptoms at home were more like lightheadedness rather than dizziness. she received IV fluids -monitor any further symptoms off IV fluids Dehydration -admitting physician commented patient had previously experienced nausea and vomiting, and diarrhea a few days ago. -was given IV fluids Lactic acidemia (present on admission) -admission Serum lactate 2.3, Hemodynamically stable, did not appear to be septic in ED -resolved with IV fluids COPD (chronic obstructive pulmonary disease) -Continue tiotropium, albuterol PRN, prednisone. Seizure disorder - No recent seizures, Continue home dose levetiracetam. Rheumatoid arthritis -Continue usual dose of prednisone and analgesics. Severe protein-calorie malnutrition, with BMI of 16 - admission Wt 36 kg. BMI 16.0. - Diet / supplements as tolerated. Ambulatory dysfunction -History of falls. -PT / OT evals. DNR (do not resuscitate)/DNI -as discussed by admitting physician with patient DVT prophylaxis: SCDs for now Admission and Anticipated Discharge Date Admission Date: October 02, 2020 Subjective patient had supratherapeutic PTT while IV heparin, remains on room air oxygen, D-dimer downtrending. she is chronically anemic. She reports that she is able to ambulate okay to bathroom but continues to feel "dizziness" symptoms when she ambulates. Since patient has some baseline anemia and hgb declined tho less than 8 (although no report of acute blood loss at this time), 1 unit of PRBC to be given on 10/04/2020 and will see if improving her anemia relieves the reported dizziness symptoms. No arrhythmias noted on telemetry to date. Updated her daughter in law by telephone. patient denies symptoms of chest pain, abdomen pain, or headache. no vomiting. no other reported symptoms on telemetry Review of Systems Review of Systems: All systems reviewed & are unremarkable except as noted in Subjective Physical Exam Constitutional: + frail appearing Eyes: PERRL, conjunctivae normal, anicteric sclerae ENMT: external ear and nose normal, oropharynx normal Neck: normal visual inspection Respiratory: normal respiratory effort Cardiovascular: Rate/Rhythm: regular rate Gastrointestinal (Abdomen): normal bowel sounds, soft, nontender, no hepatosplenomegaly Musculoskeletal: Head/Neck/Chest: normocephalic and head atraumatic Neurologic: PERRL, EOMI, accommodation nl, no face palsy, no dysarthria Psychiatric: A+Ox3, euthymic affect Results & Data Results & Data ([facility]) Vital Signs (Past 12 Hours) Vital Signs Temp Pulse Pulse Resp BP BP Pulse Ox 10/04/20 11:25 36.9 C 83 18 116/59 L 98 10/04/20 08:00 76 10/04/20 07:30 37 C 68 20 154/60 H 91 10/04/20 04:33 37.1 C 70 18 136/56 L 90
[2020-10-04] MEDS: oxyCODONE HCL IR 5 MG TAB (IMMEDIATE RELEASE) PO PRN ×2 (14:05→19:35)
[2020-10-04] MEDS: AMITRIPTYLINE HCL 10 MG TAB PO SCH (19:30)
[2020-10-04] MEDS: ATORVASTATIN 20 MG TAB PO SCH (19:30)
[2020-10-04] MEDS: predniSONE 5 MG TAB PO SCH (19:31)
[2020-10-04] MEDS: rOPINIRole HCL 0.25 MG TABLET PO SCH (19:32)
[2020-10-04] MEDS ORDERED: LORazepam 0.5 MG TAB PO STA (22:11)
[2020-10-05] MEDS ORDERED: IBUPROFEN 200 MG TAB PO STA (00:02)
[2020-10-05] MEDS: oxyCODONE HCL IR 5 MG TAB (IMMEDIATE RELEASE) PO PRN ×3 (02:32→17:10)
[2020-10-05 06:53] LABS: Hematocrit (blood only) 33.6 % (37-47); Hemoglobin 11.4 g/dL (12.0-16.0); Immature Granulocytes # (auto) 0.02 K/uL (0.00-0.02); Immature Granulocytes % (auto) 0.7 %; Lymphocytes # (auto) 0.58 K/uL (1.2-3.4); Lymphocytes % (auto) 19.1 %; Mean Corpuscular Hemoglobin 33.1 pg (25-34); Mean Corpuscular Hgb Conc 33.9 g/dL (32-36); Mean Corpuscular Volume 97.7 fL (80-100); Mean Platelet Volume 9.3 fL (7.4-10.4); Monocytes # (auto) 0.47 K/uL (0.11-0.59); Monocytes % (auto) 15.5 %; Neutrophils # (auto) 1.97 K/uL (1.4-6.5); Neutrophils % (auto) 64.7 %; Platelet Count 153 K/uL (130-400); RDW Coefficient of Variation 18.7 % (11.5-14.5); RDW Standard Deviation 65.9 fL (36.4-46.3); Red Blood Count 3.44 M/uL (4.2-5.4); White Blood Count 3.04 K/uL (4.8-10.8)
[2020-10-05] MEDS: CYCLOBENZAPRINE HCL 5 MG TAB PO PRN ×2 (07:01→19:12)
[2020-10-05 07:06] LABS: BUN Creatinine Ratio 20.9 (10-20); Calcium 8.7 mg/dl (8.5-10.1); Creatinine Clr Calc Pharmacy 36.4 ml/min; Est GFR (African American) 92.6; Est GFR (Non-African American) 79.9; Potassium 3.9 mmol/L (3.5-5.1)
[2020-10-05] MEDS: guaiFENesin 600 MG TABCR PO SCH ×2 (08:01→20:22)
[2020-10-05] MEDS: ADVANCED PROBIOTIC 1250 MG CAPSULE PO SCH (08:01)
[2020-10-05] MEDS: UMECLIDINIUM BROMIDE 62.5MCG/BLISTER 7 PUFFS/INHALER INH SCH (08:02)
[2020-10-05] MEDS: CYANOCOBALAMIN 500 MCG TABLET (VITAMIN B-12) PO SCH (08:02)
[2020-10-05] MEDS: FLUTICASONE PROPIONATE NA SPR 16 GM BTL SCH (08:02)
[2020-10-05] MEDS: POT PHOSPHATE MONOBASIC W/ SOD TAB PO SCH ×4 (08:02→20:22)
[2020-10-05] MEDS: levETIRAcetam 250 MG TAB PO SCH ×2 (08:02→20:23)
[2020-10-05] MEDS: FAMOTIDINE 20 MG TAB PO SCH (08:03)
[2020-10-05] MEDS: FOLIC ACID 1 MG TAB PO SCH (09:45)
--- NOTE | 2020-10-05 15:32 | Hospitalist Progress Note ---
Date of Service October 05, 2020 Assessment & Plan (1) COVID-19: Elevated D-dimer Anemia of chronic disease - Recent admission 09/24 - 09/28 for pneumonia with exacerbation of COPD. SARS-CoV-2 PCR ([facility]) was negative on 09/24/2020. She was treated for community acquired pneumonia with ceftriaxone and doxycycline with improvement. presented to ED on 10/03/2020 with generalized weakness and dizziness with positive SARS-CoV-2 PCR positive. on admission, patient feels that pulmonary status back to baseline and O2 saturations are > 90% on RA. her admission Chest x-ray shows chronic changes and improved infiltrates. as per admitting physician Dr. Gu that patient "experiencing malaise, myalgias, nausea, and vomiting which could be secondary to COVID-19." according to admission physician Dr. Gu, COVID-specific therapies like dexamethasone, remdesivir, CCP not indicated because of adequate oxygenation. she is on airborne and contact isolation and Dr. Gu notified her family (primary contact Christine who is [id number]) about COVID-19 diagnosis and need to quarantine. Hgb on admission as 9.1 -10/03/2020: assessment Patient seen and examined at bedside. She is on room air. has occasional dry cough. IV heparin running because elevated D-dimer which was in her morning labs as requested by previous admitting physician. unlikely that there is any pulmonary embolism because she is not hypoxic but continue to assess her oxygen requirements while in the hospital. IV fluids are stopped this AM for monitoring the blood pressures which are also stable. patient does not have current dizziness but she reports she lives by herself at home and she did report previously of almost 1 week of feeling dizziness. Patient denies other symptoms on review of systems - she does not have acute pain. While she is medically stable, hospitalist have concerns of her self-care at home. While she appears to be medically stable and currently comfortable on the bed, patient will need assessment by PT/OT on mobility and also case management to assess whether any additional services needed prior to a hospital discharge 10/04/2020: patient had supratherapeutic PTT while IV heparin, remains on room air oxygen, D-dimer downtrending. she is chronically anemic. She reports that she is able to ambulate okay to bathroom but continues to feel "dizziness" symptoms when she ambulates. Since patient has some baseline anemia (usually between 8 to 9) and hgb declined to 7.7 (although no report of acute blood loss at this time) on 10/04/2020 labs, 1 unit of PRBC to be given on 10/04/2020 and will see if improving her anemia relieves the reported dizziness symptoms. No arrhythmias noted on telemetry to date. Updated her daughter in law by telephone. 10/05/2020: ambulation appears improved by 10/05/2020 as she is using walker and ambulating on her own in the room. Patient denies any dizziness since the 10/04/2020 PRBC. She is upset that she did not receive her Flexeril medication as of yet. She declined physical exam by medical doctor with stethoscope and went to the bathroom. Discussed with her daughter in law about discharge plans and her family will not be available to transport her home until tomorrow 10/06/2020 Dizziness -she received meclizine in the ED, no nystagmus on admission exam, admission CT head negative. the impression of admitting physician that her symptoms at home were more like lightheadedness rather than dizziness -resolved with IV fluids on this hospital stay and 1 unit PRBC on 10/04/2020 Dehydration -admitting physician commented patient had previously experienced nausea and vo miting, and diarrhea a few days ago. -was given IV fluids Lactic acidemia (present on admission) -admission Serum lactate 2.3, Hemodynamically stable, did not appear to be se ptic in ED -resolved with IV fluids COPD (chronic obstructive pulmonary disease) -Continue tiotropium, albuterol PRN, prednisone. Seizure disorder - No recent seizures, Continue home dose levetiracetam. Rheumatoid arthritis -Continue usual dose of prednisone and analgesics. Severe protein-calorie malnutrition, with BMI of 16 - admission Wt 36 kg. BMI 16.0. - Diet / supplements as tolerated. Ambulatory dysfunction -History of falls -ambulation appears improved by 10/05/2020 DNR (do not resuscitate)/DNI -as discussed by admitting physician with patient DVT prophylaxis: SCDs for now Admission and Anticipated Discharge Date Admission Date: October 02, 2020 Subjective ambulation appears improved by 10/05/2020 as she is using walker and ambulating on her own in the room. Patient denies any dizziness since the 10/04/2020 PRBC. She is upset that she did not receive her Flexeril medication as of yet. She declined physical exam by medical doctor with stethoscope and went to the bathroom. Discussed with her daughter in law about discharge plans and her family will not be available to transport her home until tomorrow 10/06/2020 Review of Systems Review of Systems: All systems reviewed & are unremarkable except as noted in Subjective Physical Exam Constitutional: + frail appearing Eyes: EOM intact bilaterally ENMT: external ear and nose normal, oropharynx normal Neck: normal visual inspection Respiratory: normal respiratory effort (breathing on room air, she declined lung auscultation) Cardiovascular: Rate/Rhythm: regular rate (regular rate by telemtry monitoring) Gastrointestinal (Abdomen): normal bowel sounds, soft, nontender, no hepatosplenomegaly Musculoskeletal: Head/Neck/Chest: normocephalic and head atraumatic Neurologic: moves all extremities and awake Psychiatric: Orientation: alert and oriented x 3 Results & Data Results & Data ([facility]) Vital Signs (Past 12 Hours) Vital Signs Temp Pulse Pulse Resp BP Pulse Ox 10/05/20 11:46 36.9 C 72 18 145/70 H 92 10/05/20 09:03 36.6 C 70 18 155/68 H 94 10/05/20 08:00 70
[2020-10-05] MEDS: AMITRIPTYLINE HCL 10 MG TAB PO SCH (20:20)
[2020-10-05] MEDS: predniSONE 5 MG TAB PO SCH (20:23)
[2020-10-05] MEDS: ATORVASTATIN 20 MG TAB PO SCH (20:23)
[2020-10-05] MEDS: rOPINIRole HCL 0.25 MG TABLET PO SCH (20:24)
[2020-10-06] MEDS: oxyCODONE HCL IR 5 MG TAB (IMMEDIATE RELEASE) PO PRN ×2 (01:39→14:17)
[2020-10-06 07:30] LABS: Eosinophils # (auto) 0.01 K/uL (0-0.5); Eosinophils % (auto) 0.3 %; Hematocrit (blood only) 35.5 % (37-47); Immature Granulocytes # (auto) 0.02 K/uL (0.00-0.02); Immature Granulocytes % (auto) 0.6 %; Lymphocytes # (auto) 0.68 K/uL (1.2-3.4); Lymphocytes % (auto) 18.9 %; Mean Corpuscular Hemoglobin 32.6 pg (25-34); Mean Corpuscular Hgb Conc 33.8 g/dL (32-36); Mean Corpuscular Volume 96.5 fL (80-100); Mean Platelet Volume 10.1 fL (7.4-10.4); Monocytes # (auto) 0.43 K/uL (0.11-0.59); Neutrophils # (auto) 2.45 K/uL (1.4-6.5); Neutrophils % (auto) 68.2 %; Platelet Count 134 K/uL (130-400); RDW Coefficient of Variation 18.7 % (11.5-14.5); RDW Standard Deviation 65.7 fL (36.4-46.3); Red Blood Count 3.68 M/uL (4.2-5.4); White Blood Count 3.59 K/uL (4.8-10.8)
[2020-10-06] MEDS: CYANOCOBALAMIN 500 MCG TABLET (VITAMIN B-12) PO SCH (09:31)
[2020-10-06] MEDS: ADVANCED PROBIOTIC 1250 MG CAPSULE PO SCH (09:31)
[2020-10-06] MEDS: FAMOTIDINE 20 MG TAB PO SCH (09:32)
[2020-10-06] MEDS: guaiFENesin 600 MG TABCR PO SCH (09:32)
[2020-10-06] MEDS: levETIRAcetam 250 MG TAB PO SCH (09:32)
[2020-10-06] MEDS: POT PHOSPHATE MONOBASIC W/ SOD TAB PO SCH ×3 (09:32→17:35)
[2020-10-06] MEDS: FOLIC ACID 1 MG TAB PO SCH (09:32)
[2020-10-06] MEDS: FLUTICASONE PROPIONATE NA SPR 16 GM BTL SCH (09:32)
[2020-10-06] MEDS: UMECLIDINIUM BROMIDE 62.5MCG/BLISTER 7 PUFFS/INHALER INH SCH (09:32)
[2020-10-06] MEDS: CYCLOBENZAPRINE HCL 5 MG TAB PO PRN (14:17)
--- NOTE | 2020-10-06 17:58 | Hospitalist Progress Note ---
Date of Service October 06, 2020 Assessment & Plan (1) COVID-19: Elevated D-dimer Anemia of chronic disease Per Dr. Richardson Ordonez's notes: - Recent admission 09/24 - 09/28 for pneumonia with exacerbation of COPD. SARS-CoV-2 PCR ([facility]) was negative on 09/24/2020. She was treated for community acquired pneumonia with ceftriaxone and doxycycline with improvement. presented to ED on 10/03/2020 with generalized weakness and dizziness with positive SARS-CoV-2 PCR positive. on admission, patient feels that pulmonary status back to baseline and O2 saturations are > 90% on RA. her admission Chest x-ray shows chronic changes and improved infiltrates. as per admitting physician Dr. Gu that patient "experiencing malaise, myalgias, nausea, and vomiting which could be secondary to COVID-19." according to admission physician Dr. Gu, COVID-specific therapies like dexamethasone, remdesivir, CCP not indicated because of adequate oxygenation. she is on airborne and contact isolation and Dr. Gu notified her family (primary contact Christine who is [id number]) about COVID-19 diagnosis and need to quarantine. Hgb on admission as 9.1 -10/03/2020: assessment Patient seen and examined at bedside. She is on room air. has occasional dry cough. IV heparin running because elevated D-dimer which was in her morning labs as requested by previous admitting physician. unlikely that there is any pulmonary embolism because she is not hypoxic but continue to assess her oxygen requirements while in the hospital. IV fluids are stopped this AM for monitoring the blood pressures which are also stable. patient does not have current dizziness but she reports she lives by herself at home and she did report previously of almost 1 week of feeling dizziness. Patient denies other symptoms on review of systems - she does not have acute pain. While she is medically stable, hospitalist have concerns of her self-care at home. While she appears to be medically stable and currently comfortable on the bed, patient will need assessment by PT/OT on mobility and also case management to assess whether any additional services needed prior to a hospital discharge 10/04/2020: patient had supratherapeutic PTT while IV heparin, remains on room air oxygen, D-dimer downtrending. she is chronically anemic. She reports that she is able to ambulate okay to bathroom but continues to feel "dizziness" symptoms when she ambulates. Since patient has some baseline anemia (usually between 8 to 9) and hgb declined to 7.7 (although no report of acute blood loss at this time) on 10/04/2020 labs, 1 unit of PRBC to be given on 10/04/2020 and will see if improving her anemia relieves the reported dizziness symptoms. No arrhythmias noted on telemetry to date. Updated her daughter in law by telephone. 10/05/2020: ambulation appears improved by 10/05/2020 as she is using walker and ambulating on her own in the room. Patient denies any dizziness since the 10/04/2020 PRBC. She is upset that she did not receive her Flexeril medication as of yet. She declined physical exam by medical doctor with stethoscope and went to the bathroom. Discussed with her daughter in law about discharge plans and her family will not be available to transport her home until tomorrow 10/06/2020 10/06/2020 patient remains clinically stable saturating well on room air symptoms have resolved Hg 12.0 no signs of active bleeding ff up with PCP in 1 week repeat CBC in [address] Richardson Ordonez's notes: -she received meclizine in the ED, no nystagmus on admission exam, admission CT head negative. the impression of admitting physician that her symptoms at home were more like lightheadedness rather than dizziness -resolved with IV fluids on this hospital stay and 1 unit PRBC on 10/04/2020 Dehydration -secondary to nausea and vomiting, and diarrhea a few days ago. -resolved with IV fluids Lactic acidemia (present on admission) -admission Serum lactate 2.3, no sepsis -resolved with IV fluids COPD (chronic obstructive pulmonary disease) - stable -Continue tiotropium, albuterol PRN, prednisone. Seizure disorder - No recent seizures, Continue home dose levetiracetam. Rheumatoid arthritis -Continue usual dose of prednisone and analgesics. Severe protein-calorie malnutrition, with BMI of 16 - admission Wt 36 kg. BMI 16.0. - Diet / supplements as tolerated. Ambulatory dysfunction -History of falls -ambulation appears improved by 10/05/2020 DNR (do not resuscitate)/DNI -as discussed by admitting physician with patient DVT prophylaxis: SCDs Disposition d/c home ff up with PCP in 1 week Admission and Anticipated Discharge Date Admission Date: October 02, 2020 Subjective ff up for COVID screen, Results & Data Results & Data ([facility]) Vital Signs (Past 12 Hours) Vital Signs Temp Pulse Pulse Resp BP BP Pulse Ox 10/06/20 16:00 67 10/06/20 15:25 36.7 C 72 16 134/66 93 10/06/20 11:20 36.6 C 73 16 127/75 92 10/06/20 08:00 77 10/06/20 07:44 36.9 C 78 16 125/74 93
--- NOTE | 2020-10-10 20:19 | Discharge Summary ---
Date of Service October 10, 2020 Admission HPI Per Admitting Provider 80 YO female followed by Dr. Galvez for primary care. History of COPD, RA on chronic prednisone, and other problems noted below. Admitted to [facility] 09/24/20 - 09/28/20 with pneumonia + exacerbation of COPD. SARS-CoV-2 PCR ([facility] ID Now) was negative on 09/24. She was treated for community acquired pneumonia with ceftriaxone and doxycycline with improvement. Also treated with IV --> PO steroids and discharged on her usual maintenance dose of prednisone. Discharged on doxycycline to complete course of therapy. Patient returned to ED today with generalized weakness and dizziness. Dizziness initially interpreted as vertigo, but she describes more of a feeling of lightheadedness to me at time of my assessment. Received a dose of meclizine in ED which made her a bit drowsy, but did not help the dizziness. Denies fever. Cough now similar to her chronic cough from COPD. Denies SOB or chest pain. Has some nausea. Vomited yesterday, but not today. Had some loose stools a few days ago, none today. No melena or hematochezia. SARS-CoV-2 PCR performed in ED today was positive. Admission Exam Per Admitting Provider VS- as noted Constitutional- elderly, thin female; no acute distress Eyes- opacification right cornea; left pupil reactive; anicteric sclerae, conjunctivae normal ENMT- external ear and nose normal; dry oral mucosa; edentulous wearing dentures Neck- trachea midline; no thyromegaly Respiratory- scattered rales; diffuse mild wheezing Cardiovascular- distant heart sounds; RRR, no murmur/gallop/rub appreciated; no JVD; no pretibial edema; normal capillary refill Abdomen- normal bowel sounds, soft, nontender, nondistended; no palpable masses or hepatosplenomegaly Musculoskeletal- no cyanosis Skin- warm & dry; normal color; no rashes; multiple bruises Neurologic- no nystagmus; no facial palsy; no dysarthria or aphasia; generalized motor weakness; patellar DTR's 1/2 bilaterally Psychiatric- alert, oriented to person, place, year, president Lymphatic- no cervical adenopathy Principal Diagnosis COVID-19 infection, weakness/dizziness likely secondary to symptomatic anemia Discharge Exam General- oriented x 3, not in distress, speaks in sentences with no effort or accessory muscle use Eyes- anicteric Neck- no JVD Lungs- clear breath sounds bilaterally, no rales/wheezes Heart- normal rate, regular rhythm; no murmurs Abdomen- normal bowel sounds, nondistended, soft, nontender Extremities- no pretibial edema, no calf tenderness Neuro- alert, oriented x 3; no gross focal neurologic deficits Skin- warm & dry Discharge Data Allergies Allergy/AdvReac Type Severity Reaction Status Date / Time pollen extracts Allergy Mild SEASONAL-ITCHY Verified 09/24/20 23:02 EYES,RUNNY NOSE Consultations 10/02/20 12:44 ED Decision to Admit Stat Ordered Studies 10/02/20 10:08 CT head/brain wo con Stat FINDINGS: No acute intracranial hemorrhage, midline shift, intracranial mass, hydrocephalus, territorial ischemia or abnormal extra-axial collection. Age- related involutional changes with ex vacuo ventriculomegaly. Patchy white matter hypodensities suggest chronic microvascular ischemic disease. Cerebral vascular calcifications. The calvarium is intact. Unchanged appearance of the orbits with posteriorly displaced left-sided lens. The paranasal sinuses, mastoid air cells, and middle ear cavities are clear. IMPRESSION: No acute intracranial abnormality. Hospital Course (1) COVID-19: Elevated D-dimer Per Dr. Richardson Ordonez's notes: - Recent admission 09/24 - 09/28 for pneumonia with exacerbation of COPD. SARS-CoV-2 PCR ([facility] ID Now) was negative on 09/24/2020. She was treated for community acquired pneumonia with ceftriaxone and doxycycline with improvement. presented to ED on 10/03/2020 with generalized weakness and dizziness with positive SARS-CoV-2 PCR positive. on admission, patient feels that pulmonary status back to baseline and O2 saturations are > 90% on RA. her admission Chest x-ray shows chronic changes and improved infiltrates. as per admitting physician Dr. Gu that patient "experiencing malaise, myalgias, nausea, and vomiting which could be secondary to COVID-19." according to admission physician Dr. Gu, COVID-specific therapies like dexamethasone, remdesivir, CCP not indicated because of adequate oxygenation. she is on airborne and contact isolation and Dr. Gu notified her family (primary contact Christine who is [id number]) about COVID-19 diagnosis and need to quarantine. Hgb on admission as 9.1 -10/03/2020:She is on room air. has occasional dry cough. IV heparin running because elevated D-dimer which was in her morning labs as requested by previous admitting physician. unlikely that there is any pulmonary embolism because she is not hypoxic but continue to assess her oxygen requirements while in the hospital. 10/04/2020: patient had supratherapeutic PTT while IV heparin, remains on room air oxygen, D-dimer downtrending. she is chronically anemic.Since patient has some baseline anemia (usually between 8 to 9) and hgb declined to 7.7 (although no report of acute blood loss at this time) on 10/04/2020 labs, 1 unit of PRBC to be given on 10/04/2020. No arrhythmias noted on telemetry to date. 10/05/2020: ambulation appears improved by 10/05/2020 as she is using walker and ambulating on her own in the room. Patient denies any dizziness since the 10/04/2020 PRBC. S 10/06/2020 patient remains clinically stable saturating well on room air dizziness and other symptoms have resolved Hg 12.0 no signs of active bleeding ff up with PCP in 1 week repeat CBC in 1 week Dizziness Anemia of chronic disease Per Dr. Richardson Ordonez's notes: -she received meclizine in the ED, no nystagmus on admission exam, admission CT head negative. the impression of admitting physician that her symptoms at home were more like lightheadedness rather than dizziness -resolved with IV fluids on this hospital stay and 1 unit PRBC on 10/04/2020 Dehydration -secondary to nausea and vomiting, and diarrhea a few days ago. -resolved with IV fluids Lactic acidemia (present on admission) -admission Serum lactate 2.3, no sepsis -resolved with IV fluids COPD (chronic obstructive pulmonary disease) - stable -Continue tiotropium, albuterol PRN, prednisone. Seizure disorder - No recent seizures, Continue home dose levetiracetam. Rheumatoid arthritis -Continue usual dose of prednisone and analgesics. Severe protein-calorie malnutrition, with BMI of 16 - admission Wt 36 kg. BMI 16.0. - Diet / supplements as tolerated. Ambulatory dysfunction -History of falls -ambulation appears improved by 10/05/2020 DNR (do not resuscitate)/DNI -as discussed by admitting physician with patient DVT prophylaxis: SCDs Disposition d/c home ff up with PCP in 1 week Plan of care discussed in detail and at length with the patient All questions were answered They are understanding, agreeable, comfortable with the plan of care Total Time Total Time Spent Total Time Spent (In Minutes): > 30 minutes Discharge Plan Discharge Items Patient Disposition: Home - Home Health Services Reason For Visit: COVID-19 Discharge Diagnosis: COVID-19 Elevated D-dimer Anemia Dizziness Dehydration COPD (chronic obstructive pulmonary disease) Activity: As commented below Activity Comment: Resume activity gradually as tolerated, no heavy exertion Lifting: Wait until after follow-up appointment Exercise/Sports: Wait until after follow-up appointment Driving/Machine Use: No driving until re-evaluated by Primary Care Physician Non-emergency contact: Primary Care Provider Call non-emergency contact if: you have any medication questions, your symptoms worsen, your pain is not controlled, your pain is worsening, your pain is unusual for you, your pain is concerning for you and you have a fever Follow-up/Referrals: Zakia Galvez, [Primary Care Provider] - (YOUR PRIMARY CARE DOCTOR'S OFFICE WILL CALL YOU TO SCHEDULE A POST DISCHARGE FOLLOW-UP APPOINTMENT) Diet: Heart Healthy Addtl Attending Provider Instructions: CALL PRIMARY CARE PHYSICIAN OR RETURN TO THE ER IMMEDIATELY IF WITH WORSENING OF SYMPTOMS, INCLUDING WORSENING OF SHORTNESS OF BREATH, CHEST PAIN, LEG PAIN, COUGH, SPUTUM PRODUCTION, FEVER/CHILLS, ABDOMINAL PAIN, BLACK OR RED STOOLS, DIZZINESS. YOUR NEW MEDICATION IS PROTONIX- FOR POSSIBLE GASTRITIS/STOMACH ULCER. ALWAYS TAKE THIS AT LEAST 3O MINUTES BEFORE BREAKFAST. STOP FAMOTIDINE. DO NOT TAKE NSAIDS SUCH IBUPROFEN, NAPROXEN/ALLEVE, THESE CAN CAUSE GASTRITIS/STOMACH ULCERS. NO ALCOHOL/SMOKING. FOLLOW UP WITH PRIMARY CARE PHYSICIAN IN 1 WEEK. THE CLINIC WILL BE CALLING YOU SOON FOR THE APPOINTMENT. YOU NEED TO BE ISOLATED AT HOME FOR AT LEAST 10 MORE DAYS. DISCUSS WITH YOUR PRIMARY CARE PHYSICIAN ON FOLLOW UP WHEN YOU CAN DISCONTINUE ISOLATION. Home Isolation COVID-19 Instructions The following information about Home Isolation is from the CDC Website: https://www.cdc.gov/coronavirus/2019-ncov/hcp/pnszxxib-timutbl-txkgdt.html Stay home except to get medical care People who are mildly ill with COVID-19 are able to isolate at home during their illness. You should restrict activities outside your home, except for getting medical care. Do not go to work, school, or public areas. Avoid using public transportation, ride-sharing, or taxis. Separate yourself from other people and animals in your home People: As much as possible, you should stay in a specific room and away from other people in your home. Also, you should use a separate bathroom, if available. Animals: You should restrict contact with pets and other animals while you are sick with COVID-19, just like you would around other people. Although there have not been reports of pets or other animals becoming sick with COVID-19, it is still recommended that people sick with COVID-19 limit contact with animals until more information is known about the virus. When possible, have another member of your household care for your animals while you are sick. If you are sick with COVID-19, avoid contact with your pet, including petting, snuggling, being kissed or licked, and sharing food. If you must care for your pet or be around animals while you are sick, wash your hands before and after you interact with pets and wear a face mask. Call ahead before visiting your doctor If you have a medical appointment, call the healthcare provider and tell them that you have or may have COVID-19. This will help the healthcare providers office take steps to keep other people from getting infected or exposed. Wear a face mask You should wear a face mask when you are around other people (e.g., sharing a room or vehicle) or pets and before you enter a healthcare providers office. If you are not able to wear a face mask (for example, because it causes trouble breathing), then people who live with you should not stay in the same room with you, or they should wear a face mask if they enter your room. Cover your coughs and sneezes Cover your mouth and nose with a tissue when you cough or sneeze. Throw used tissues in a lined trash can. Immediately wash your hands with soap and water for at least 20 seconds or, if soap and water are not available, clean your hands with an alcohol-based hand casino change attendant that contains at least 60% alcohol. Clean your hands often Wash your hands often with soap and water for at least 20 seconds, especially after blowing your nose, coughing, or sneezing; going to the bathroom; and before eating or preparing food. If soap and water are not readily available, use an alcohol-based hand casino change attendant with at least 60% alcohol, covering all surfaces of your hands and rubbing them together until they feel dry. Soap and water are the best option if hands are visibly dirty. Avoid touching your eyes, nose, and mouth with unwashed hands. Avoid sharing personal household items You should not share dishes, drinking glasses, cups, eating utensils, towels, or bedding with other people or pets in your home. After using these items, they should be washed thoroughly with soap and water. Clean all high-touch surfaces everyday High touch surfaces include counters, tabletops, doorknobs, bathroom fixtures, toilets, phones, keyboards, tablets, and bedside tables. Also, clean any surfaces that may have blood, stool, or body fluids on them. Use a household cleaning spray or wipe, according to the label instructions. Labels contain instructions for safe and effective use of the cleaning product including precautions you should take when applying the product, such as wearing gloves and making sure you have good ventilation during use of the product. Monitor your symptoms Seek prompt medical attention if your illness is worsening (e.g., difficulty breathing).Beforeseeking care, call your healthcare provider and tell them that you have, or are being evaluated for, COVID-19. Put on a face mask before you enter the facility. These steps will help the healthcare providers office to keep other people in the office or waiting room from getting infected or exposed. Ask your healthcare provider to call the local or state health department. Persons who are placed under active monitoring or facilitated self- monitoring should follow instructions provided by their local health department or occupational health professionals, as appropriate. When working with your local health department check their available hours. If you have a medical emergency and need to call 911, notify the dispatch personnel that you have, or are being evaluated for COVID-19. If possible, put on a face mask before emergency medical services arrive. Discontinuing home isolation Patients with confirmed COVID-19 should remain under home isolation precautions until the risk of secondary transmission to others is thought to be low. The decision to discontinue home isolation precautions should be made on a [id number] basis, in consultation with healthcare providers and state and local health departments. Pending Studies at Discharge: Yes Studies:: REPEAT BLOOD WORK (CBC) ON FOLLOW UP WITH PRIMARY CARE PHYSICIAN Stand-Alone Forms: [facility], Smoking Cessation Medications and DC Order Prescriptions: New pantoprazole [Protonix] 40 mg tablet,delayed release (DR/EC) 40 mg PO DAILY Qty: 30 RF: 0 Continued amitriptyline 10 mg tablet 10 mg PO HS RF: 0 baclofen 10 mg Tablet 10 mg PO TID PRN (Reason: Back Pain) RF: 0 atorvastatin 20 mg tablet 20 mg PO HS RF: 0 prednisone 5 mg tablet 5 mg PO HS RF: 0 ropinirole 0.25 mg tablet 0.25 mg PO HS RF: 0 fluticasone propionate 50 mcg/actuation spray,suspension 2 spray Intranasal DAILY RF: 0 albuterol sulfate [Ventolin HFA] 90 mcg/actuation Hfa Aerosol Inhaler 1 - 2 puff Inhalation Q4 PRN (Reason: Shortness Of Breath Or Wheezing) RF: 0 Spiriva Respimat 1.25 mcg/actuation mist 1 inh INHALATION DAILY RF: 0 magnesium hydroxide [Milk of Magnesia] 400 mg/5 mL Suspension 400 mg PO DAILY PRN (Reason: Constipation) RF: 0 oxycodone 5 mg tablet 5 mg PO Q6H PRN (Reason: Pain) RF: 0 levetiracetam 250 mg tablet 250 mg PO Q12H RF: 0 diclofenac sodium [Voltaren] 1 % Gel 1 g EXT QID PRN (Reason: joint pain) Qty: 100 RF: 0 folic acid 1 mg Tablet 1 mg PO QAM 30 Days Qty: 30 RF: 0 cyanocobalamin (vitamin B-12) 500 mcg Tablet 1,000 mcg PO QAM 30 Days Qty: 60 RF: 0 Discontinued famotidine 20 mg tablet 20 mg PO DAILY RF: 0 ibuprofen [Motrin IB] 200 mg tablet 200 mg PO Q8H PRN (Reason: pain) Qty: 90 RF: 0 Discharge Orders: Discharge Order (Routine); Ordered 10/06/20 Ordered By: Adan Mckeon Admission Data Admit Date/Time: 10/02/20 12:54 Attending Provider: Adan Mckeon Admit Provider: Jose D Gu Primary Care Provider: Galvez,Zakia M. Other Providers: Jose D Gu ; Richardson Ordonez Other Interventions: Discharge Summary Assessment (RN) Last Done: 10/06/20 18:42
== END 2020-10-06 19:03 | disposition home health service (06) | DRG 177 ==
LOC: ED 09:51 → SUATTDRO 12:54 → EDINP 12:54 → 2S 18:27

== ENCOUNTER 2020-12-03 10:48 | Inpatient (IN) ==
--- NOTE | 2020-12-03 11:23 | Emergency Department Note ---
Impression & Plan Weak, Dizzy, Anemia ED Provider Note NAME: CLIFFORD MCADAMS AGE: 80 SEX: F : 1940 ARRIVES VIA: Ambulance INFORMANT: Patient ED PROVIDER(S): Nilson King DO CHIEF COMPLAINT: Weakness and dizziness HPI: Patient is an 80-year-old female who presents to the ER brought in for dizziness and weakness. Dizziness has been present since yesterday. She notes she is dizzy at all times it is worse with movement. She denies any focal weakness in her arms or legs. She did fall and hit her head. No neck pain. No chest pain, shortness of breath, nausea, vomiting or diarrhea. No other exacerbating or remitting factors. She notes caretakers believe that she needs 24-hour care and can only care take care of her at home either. She has had dizziness before but notes never this bad. ROS: See above HPI for pertinent positives & negatives. A total of 10 systems reviewed and were otherwise negative. PAST MEDICAL HISTORY:See Below PAST SURGICAL HISTORY:See Below FAMILY HISTORY:See Below SOCIAL HISTORY:See Below HOME MEDICATIONS:See Below ALLERGIES:See Below VITALS:See Below PHYSICAL EXAMINATION: GENERAL: Sitting up in bed, alert, cachectic, disheveled EYE EXAM: Right eye opacified, left pupil is equal round reactive OROPHARYNX: no exudate, no erythema, lips, buccal mucosa, and tongue normal and mucous membranes are moist NECK: supple, no nuchal rigidity, no adenopathy, non-tender LUNGS: Clear to auscultation. Normal chest wall mechanics HEART: no murmurs, S1 normal and S2 normal ABDOMEN: abdomen soft, non-tender, normo-active bowel sounds, no masses, no rebound or guarding. BACK: Back is symmetrical on inspection and there is no deformity, no midline tenderness, no CVA tenderness. UPPER EXTREMITIES: upper extremities are grossly normal. LOWER EXTREMITIES: No pitting edema. NEURO EXAM: Normal sensorium, cranial nerves II-XII grossly intact, normal speech, no gross weakness of arms, no gross weakness of legs. MEDICAL DECISION MAKING: Patient is an 80-year-old female that presents the ER for dizziness and diffuse weakness referred in by family has they cannot take care of her at home.IV was established blood work is obtained. Labs show no significant leukocytosis. Mild anemia 10.5 which is actually markedly improved from the previous of 8.5. INR unremarkable. BMP with LFTs bilirubin troponin and lipase was unremarkable. UA was negative. Covid was negative. CT head and cervical spine were unremarkable chest x-ray with no acute pathology. EKG was nondiagnostic. Patient was updated bedside and discussed with hospitalist for observation for her dizziness and will likely need placement. Triage Nursing notes reviewed. Limited review of prior medical records performed Vital Signs: reviewed and remarkable for no significant abnormalities Differential diagnosis: Differential diagnosis includes etiologies such as benign positional vertigo, dehydration, hypovolemia, anemia, tumor, infection, hypoglycemia, electrolyte abnormalities, cardiac sources, intracerebral event, toxicologic, neurological, as well as others were entertained. ER treatment provided: See below Diagnostics interpreted by me: ECG: Sinus rhythm rate of 68 Left axis No PVCs T wave flattening in aVL QTC 429 Cardiac Monitoring: An order was placed for continuous cardiac monitoring. The monitor shows a rate of 63 with sinus rhythm. Laboratory studies: As stated above and show below. Imaging studies: CT head and cervical spine showed no acute pathology Portable AP upright 1 view the chest was unremarkable Consultation(s): Discussed with hospitalist for further evaluation Procedures: none Critical Care: None Past Med/Surg History Medical History Allergic rhinitis Anemia of chronic disease Anxiety Blind right eye COPD (chronic obstructive pulmonary disease) COVID-23 Sep 2020 DNR (do not resuscitate) Hip fracture Restless leg syndrome Rheumatoid arthritis Seizure disorder Surgical History Status post appendectomy Status post cataract extraction Status post exploratory laparotomy "x3 for adhesions" Status post hysterectomy Status post ovarian cystectomy Status post tonsillectomy Status post tubal ligation Family History Brother Cancer Brother Diabetes Sister Diabetes Sister Heart disease Sister Stroke Mother Heart disease Other Family history non-contributory Social History Smoking Status: Former smoker Tobacco Type: Cigarettes Cigarettes Per Day: 20; Number of Years Since Quit: 29; Second Hand Exposure: Yes; Hx Alcohol Use: No Hx Substance Use: No Preferred Language: Sudanese Communication Ability: Effective Visual Impairment: Blindness Angle Furnaceman Required: No Beliefs That Will Affect Care: None marital status: / Current Living Situation: Alone Current Living Situation Comment: in apartment Feels Safe at Home: Yes Assistive Devices: Walker Allergies Allergies Allergy/AdvReac Type Severity Reaction Status Date / Time pollen extracts Allergy Mild SEASONAL-ITCHY Verified 10/15/20 22:21 EYES,RUNNY NOSE Home Meds Home Medications Medication Instructions Recorded Confirmed atorvastatin 20 mg PO HS 07/13/18 12/03/20 prednisone 5 mg PO DAILY 07/13/18 12/03/20 ropinirole 0.25 mg PO HS 07/13/18 12/03/20 Spiriva Respimat 1 inh INHALATION DAILY 07/09/20 12/03/20 oxycodone 5 mg PO Q6H PRN 07/09/20 12/03/20 levetiracetam 250 mg PO Q12H 09/24/20 12/03/20 amitriptyline 25 mg PO HS 10/15/20 12/03/20 famotidine 20 mg PO DAILY 10/15/20 12/03/20 baclofen 10 mg PO TID PRN 12/03/20 12/03/20 Results & Data (ED) Vital Signs Vital Signs - 24 hr 12/03/20 10:56 12/03/20 11:04 12/03/20 11:09 Temperature 36.5 C Temperature Source Oral Pulse Rate 63 65 66 Pulse Rate from SpO2 Sensor Respiratory Rate 13 20 Blood Pressure 172/70 H 172/70 H Blood Pressure Mean 104 104 Pulse Oximetry 96 Oxygen Delivery Method Room Air Sepsis Recent Fever Within 48 Hours No Sepsis New/Unexplained Change in Mental Status No Sepsis Action Taken by Nursing No Action Required 12/03/20 11:10 12/03/20 11:20 12/03/20 11:30 Temperature Temperature Source Pulse Rate 76 67 62 Pulse Rate from SpO2 Sensor Respiratory Rate 16 18 Blood Pressure Blood Pressure Mean Pulse Oximetry Oxygen Delivery Method Sepsis Recent Fever Within 48 Hours Sepsis New/Unexplained Change in Mental Status Sepsis Action Taken by Nursing 12/03/20 11:40 12/03/20 11:50 12/03/20 12:03 Temperature Temperature Source Pulse Rate 66 65 68 Pulse Rate from SpO2 Sensor Respiratory Rate 14 Blood Pressure Blood Pressure Mean Pulse Oximetry Oxygen Delivery Method Sepsis Recent Fever Within 48 Hours Sepsis New/Unexplained Change in Mental Status Sepsis Action Taken by Nursing 12/03/20 12:10 12/03/20 12:20 12/03/20 12:30 Temperature Temperature Source Pulse Rate 69 67 72 Pulse Rate from SpO2 Sensor Respiratory Rate 12 15 Blood Pressure Blood Pressure Mean Pulse Oximetry Oxygen Delivery Method Sepsis Recent Fever Within 48 Hours Sepsis New/Unexplained Change in Mental Status Sepsis Action Taken by Nursing 12/03/20 12:33 12/03/20 12:40 12/03/20 12:50 Temperature Temperature Source Pulse Rate 71 66 66 Pulse Rate from SpO2 Sensor 66 67 Respiratory Rate 18 18 21 Blood Pressure 156/92 H Blood Pressure Mean 113 Pulse Oximetry 93 Oxygen Delivery Method Sepsis Recent Fever Within 48 Hours Sepsis New/Unexplained Change in Mental Status Sepsis Action Taken by Nursing 12/03/20 13:00 12/03/20 13:01 12/03/20 13:10 Temperature Temperature Source Pulse Rate 69 70 68 Pulse Rate from SpO2 Sensor 68 67 Respiratory Rate 18 16 Blood Pressure 126/45 L Blood Pressure Mean 72 Pulse Oximetry 100 Oxygen Delivery Method Sepsis Recent Fever Within 48 Hours Sepsis New/Unexplained Change in Mental Status Sepsis Action Taken by Nursing 12/03/20 13:20 12/03/20 13:30 12/03/20 13:31 Temperature Temperature Source Pulse Rate 71 69 69 Pulse Rate from SpO2 Sensor 70 67 69 Respiratory Rate 19 Blood Pressure 115/49 L Blood Pressure Mean 71 Pulse Oximetry 100 100 100 Oxygen Delivery Method Sepsis Recent Fever Within 48 Hours Sepsis New/Unexplained Change in Mental Status Sepsis Action Taken by Nursing 12/03/20 13:40 12/03/20 13:50 12/03/20 14:00 Temperature Temperature Source Pulse Rate 73 75 69 Pulse Rate from SpO2 Sensor 72 74 69 Respiratory Rate 19 Blood Pressure 108/42 L Blood Pressure Mean 64 Pulse Oximetry 100 100 100 Oxygen Delivery Method Sepsis Recent Fever Within 48 Hours Sepsis New/Unexplained Change in Mental Status Sepsis Action Taken by Nursing 12/03/20 14:01 12/03/20 14:10 12/03/20 14:20 Temperature Temperature Source Pulse Rate 70 70 69 Pulse Rate from SpO2 Sensor 69 69 69 Respiratory Rate 19 22 21 Blood Pressure Blood Pressure Mean Pulse Oximetry 100 100 100 Oxygen Delivery Method Sepsis Recent Fever Within 48 Hours Sepsis New/Unexplained Change in Mental Status Sepsis Action Taken by Nursing 12/03/20 14:30 12/03/20 14:31 12/03/20 14:40 Temperature Temperature Source Pulse Rate 72 67 78 Pulse Rate from SpO2 Sensor 72 67 78 Respiratory Rate 24 18 22 Blood Pressure 97/53 L Blood Pressure Mean 67 Pulse Oximetry 100 100 100 Oxygen Delivery Method Sepsis Recent Fever Within 48 Hours Sepsis New/Unexplained Change in Mental Status Sepsis Action Taken by Nursing 12/03/20 14:53 12/03/20 14:56 12/03/20 15:00 Temperature Temperature Source Pulse Rate 83 66 64 Pulse Rate from SpO2 Sensor 82 65 66 Respiratory Rate 15 Blood Pressure 150/56 H 177/60 H Blood Pressure Mean 87 99 Pulse Oximetry 96 99 94 Oxygen Delivery Method Sepsis Recent Fever Within 48 Hours Sepsis New/Unexplained Change in Mental Status Sepsis Action Taken by Nursing 12/03/20 15:01 12/03/20 15:10 12/03/20 15:20 Temperature Temperature Source Pulse Rate 68 74 70 Pulse Rate from SpO2 Sensor 69 71 68 Respiratory Rate 14 13 Blood Pressure Blood Pressure Mean Pulse Oximetry 97 98 98 Oxygen Delivery Method Sepsis Recent Fever Within 48 Hours Sepsis New/Unexplained Change in Mental Status Sepsis Action Taken by Nursing 12/03/20 15:30 12/03/20 15:31 12/03/20 15:40 Temperature Temperature Source Pulse Rate 77 75 68 Pulse Rate from SpO2 Sensor 77 75 69 Respiratory Rate 10 L 15 13 Blood Pressure Blood Pressure Mean 82 Pulse Oximetry 97 98 96 Oxygen Delivery Method Sepsis Recent Fever Within 48 Hours Sepsis New/Unexplained Change in Mental Status Sepsis Action Taken by Nursing 12/03/20 15:50 12/03/20 16:00 12/03/20 16:01 Temperature Temperature Source Pulse Rate 86 73 77 Pulse Rate from SpO2 Sensor 86 72 72 Respiratory Rate 14 Blood Pressure 124/60 Blood Pressure Mean 81 Pulse Oximetry 95 95 95 Oxygen Delivery Method Sepsis Recent Fever Within 48 Hours Sepsis New/Unexplained Change in Mental Status Sepsis Action Taken by Nursing Laboratory Data Result diagrams: 12/03/20 11:46 12/03/20 11:46 Lab Results 12/03/20 12/03/20 12/03/20 Range/Units 11:46 11:46 11:46 WBC 7.82 (4.8-10.8) K/uL RBC 2.98 L (4.2-5.4) M/uL Hgb 10.5 L (12.0-16.0) g/dL Hct 31.0 L (37-47) % MCV 104.0 H (80-100) fL MCH 35.2 H (25-34) pg MCHC 33.9 (32-36) g/dL RDW Std Deviation 69.9 H (36.4-46.3) fL RDW Coeff of Mandeep 18.4 H (11.5-14.5) % Plt Count 180 (130-400) K/uL MPV 8.8 (7.4-10.4) fL Immature Gran % (Auto) 0.9 % Neut % (Auto) 76.9 % Lymph % (Auto) 12.7 % [place] % (Auto) 7.5 % Eos % (Auto) 1.9 % Baso % (Auto) 0.1 % Neut # (Auto) 6.01 (1.4-6.5) K/uL Lymph # (Auto) 0.99 L (1.2-3.4) K/uL [place] # (Auto) 0.59 (0.11-0.59) K/uL Eos # (Auto) 0.15 (0-0.5) K/uL Baso # (Auto) 0.01 (0-0.2) K/uL Immature Gran # (Auto) 0.07 H (0.00-0.02) K/uL PT 10.8 (9.0-12.0) Seconds INR 1.0 (0.9-1.1) APTT 22.8 (21.0-31.0) Seconds PTT Ratio 0.8 Sodium 141 (136-145) mmol/L Potassium 3.7 (3.5-5.1) mmol/L Chloride 105 (98-107) mmol/L Carbon Dioxide 29 (21-32) mmol/L Anion Gap 7.0 (3-11) BUN 9 (7-18) mg/dl Creatinine 0.82 (0.6-1.2) mg/dl Est Cr Clr Drug Dosing 36.7 ml/min Est GFR ( Amer) 77.8 Est GFR (Non-Af Amer) 67.1 BUN/Creatinine Ratio 11.3 (10-20) Glucose 99 (70-99) mg/dl Calcium 9.9 (8.5-10.1) mg/dl Total Bilirubin 0.8 (0.2-1) mg/dl AST 15 (15-37) U/L ALT 13 (12-78) U/L Alkaline Phosphatase 122 H (45-117) U/L Troponin I < 0.015 (0-0.045) ng/ml Total Protein 7.1 (6.4-8.2) gm/dl Albumin 3.5 (3.4-5.0) gm/dl Globulin 3.6 (2.5-4.0) gm/dl Albumin/Globulin Ratio 1.0 (0.9-2) Lipase 46 L (73-393) U/L Urine Color Urine Appearance (Clear) Urine pH (4.5-7.5) Ur Specific [place] (1.000-1.030) Urine Protein (Negative) Urine Glucose (UA) (Negative) Urine Ketones (Negative) Urine Blood (Negative) Urine Nitrite (Negative) Urine Bilirubin (Negative) Urine Urobilinogen (Negative) Ur Leukocyte Esterase (Negative) COVID-19 Eval Order SARS-CoV-2, RNA, NAAT (NEGATIVE) 12/03/20 12/03/20 12/03/20 Range/Units 12:34 13:15 13:15 WBC (4.8-10.8) K/uL RBC (4.2-5.4) M/uL Hgb (12.0-16.0) g/dL Hct (37-47) % MCV (80-100) fL MCH (25-34) pg MCHC (32-36) g/dL RDW Std Deviation (36.4-46.3) fL RDW Coeff of Mandeep (11.5-14.5) % Plt Count (130-400) K/uL MPV (7.4-10.4) fL Immature Gran % (Auto) % Neut % (Auto) % Lymph % (Auto) % [place] % (Auto) % Eos % (Auto) % Baso % (Auto) % Neut # (Auto) (1.4-6.5) K/uL Lymph # (Auto) (1.2-3.4) K/uL [place] # (Auto) (0.11-0.59) K/uL Eos # (Auto) (0-0.5) K/uL Baso # (Auto) (0-0.2) K/uL Immature Gran # (Auto) (0.00-0.02) K/uL PT (9.0-12.0) Seconds INR (0.9-1.1) APTT (21.0-31.0) Seconds PTT Ratio Sodium (136-145) mmol/L Potassium (3.5-5.1) mmol/L Chloride (98-107) mmol/L Carbon Dioxide (21-32) mmol/L Anion Gap (3-11) BUN (7-18) mg/dl Creatinine (0.6-1.2) mg/dl Est Cr Clr Drug Dosing ml/min Est GFR ( Amer) Est GFR (Non-Af Amer) BUN/Creatinine Ratio (10-20) Glucose (70-99) mg/dl Calcium (8.5-10.1) mg/dl Total Bilirubin (0.2-1) mg/dl AST (15-37) U/L ALT (12-78) U/L Alkaline Phosphatase (45-117) U/L Troponin I (0-0.045) ng/ml Total Protein (6.4-8.2) gm/dl Albumin (3.4-5.0) gm/dl Globulin (2.5-4.0) gm/dl Albumin/Globulin Ratio (0.9-2) Lipase (73-393) U/L Urine Color Yellow Urine Appearance Clear (Clear) Urine pH 7.5 (4.5-7.5) Ur Specific [place] 1.006 (1.000-1.030) Urine Protein Negative (Negative) Urine Glucose (UA) Negative (Negative) Urine Ketones Negative (Negative) Urine Blood Negative (Negative) Urine Nitrite Negative (Negative) Urine Bilirubin Negative (Negative) Urine Urobilinogen Negative (Negative) Ur Leukocyte Esterase Negative (Negative) COVID-19 Eval Order Covid19 [facility] SARS-CoV-2, RNA, NAAT NEGATIVE (NEGATIVE) Administered Medications Meclizine HCl (Meclizine 12.5 Mg Tab) 12.5 mg PO TID PRN PRN Reason: Vertigo Stop: 01/02/21 15:24 Last Admin: 12/03/20 16:07 Dose: 12.5 mg Documented by: [id number] Discontinued Medications Acetaminophen (Acetaminophen 325 Mg Tab) 650 mg PO NOW STA Stop: 12/03/20 15:25 Last Admin: 12/03/20 16:06 Dose: 650 mg Documented by: [id number] Sodium Chloride (Nss 1000ml) 500 mls @ 999 mls/hr IV .Q31M ONE Stop: 12/03/20 15:54 Last Admin: 12/03/20 16:07 Dose: 999 mls/hr Documented by: [id number] Discharge Plan Visit Data Chief Complaint: Confusion ED Provider: Nilson King Discharge Problem: Weak, Dizzy, Anemia Patient Disposition: Admitted As Inpatient Forms Stand Alone Forms: [facility] Prescriptions Prescriptions: No Action atorvastatin 20 mg tablet 20 mg PO HS RF: 0 prednisone 5 mg tablet 5 mg PO DAILY RF: 0 ropinirole 0.25 mg tablet 0.25 mg PO HS RF: 0 Spiriva Respimat 1.25 mcg/actuation mist 1 inh INHALATION DAILY RF: 0 oxycodone 5 mg tablet 5 mg PO Q6H PRN (Reason: Pain) RF: 0 levetiracetam 250 mg tablet 250 mg PO Q12H RF: 0 famotidine 20 mg tablet 20 mg PO DAILY RF: 0 amitriptyline 25 mg tablet 25 mg PO HS RF: 0 baclofen 10 mg tablet 10 mg PO TID PRN (Reason: Muscle Spasm) RF: 0 Referrals Referrals: Zakia Galvez DO [Primary Care Provider] - Discharge Problem: Anemia Qualifiers: Anemia type: unspecified type Qualified Code(s): D64.9 - Anemia, unspecified
[2020-12-03 11:57] LABS: Basophils # (auto) 0.01 K/uL (0-0.2); Basophils % (auto) 0.1 %; Eosinophils # (auto) 0.15 K/uL (0-0.5); Eosinophils % (auto) 1.9 %; Hemoglobin 10.5 g/dL (12.0-16.0); Immature Granulocytes # (auto) 0.07 K/uL (0.00-0.02); Immature Granulocytes % (auto) 0.9 %; Lymphocytes # (auto) 0.99 K/uL (1.2-3.4); Lymphocytes % (auto) 12.7 %; Mean Corpuscular Hemoglobin 35.2 pg (25-34); Mean Corpuscular Hgb Conc 33.9 g/dL (32-36); Mean Platelet Volume 8.8 fL (7.4-10.4); Monocytes # (auto) 0.59 K/uL (0.11-0.59); Monocytes % (auto) 7.5 %; Neutrophils # (auto) 6.01 K/uL (1.4-6.5); Neutrophils % (auto) 76.9 %; Platelet Count 180 K/uL (130-400); RDW Coefficient of Variation 18.4 % (11.5-14.5); RDW Standard Deviation 69.9 fL (36.4-46.3); Red Blood Count 2.98 M/uL (4.2-5.4); White Blood Count 7.82 K/uL (4.8-10.8)
--- NOTE | 2020-12-03 11:59 | XRay Report ---
XR chest 1V portable CLINICAL HISTORY: Atypical chest pain COMPARISON STUDY: 10/15/2020 FINDINGS: The heart is normal in size. There is no lobar consolidation. There is nonspecific intersti tial thickening. There is right hilar prominence. The study is rotated. Arthritic changes are present within the shoulders[ IMPRESSION: 1. Slight progression in the diffuse interstitial thickening 2. No evidence of lobar consolidation 3. Right hilar prominence, a finding which may be accentuated due to rotation. ACT 112: Negative or not required by law. Electronically signed by: Stefano Colon M.D. 12/03/2020 11:58 AM
[2020-12-03 12:07] LABS: Partial Thromboplastin Ratio 0.8; Partial Thromboplastin Time 22.8 Seconds (21.0-31.0); Prothrombin Time 10.8 Seconds (9.0-12.0)
--- NOTE | 2020-12-03 12:08 | CT Scan Report ---
CT head/brain wo con CLINICAL HISTORY: dizzy COMPARISON STUDY: 12/02/2019 TECHNIQUE: Axial CT of the brain is performed from the vertex to the skull base. IV contrast was not administered for this examination. A dose lowering technique was utilized adhering to the principles of ALARA. CT DOSE: FINDINGS: No intra or extra-axial mass lesions are visualized. There is no CT evidence of acute cortical infarc tion. There is no evidence of midline shift. There is no acute hemorrhage. No calvarial fractures ar e visualized. There are patchy white matter hypodensities likely on a small vessel basis. There is no evidence of pathologic ventricular dilatation. There is no evidence of acute sinusitis. There is a right hector bullosa. IMPRESSION: No acute intracranial findings ACT 112: Negative or not required by law. Electronically signed by: Stefano Colon M.D. 12/03/2020 12:06 PM
--- NOTE | 2020-12-03 12:09 | CT Scan Report ---
CT OF THE CERVICAL SPINE CLINICAL HISTORY: Neck pain status post trauma COMPARISON STUDY: 11/11/2019 CT DOSE: 804.13 mGy.cm TECHNIQUE: CT scan of the cervical spine was performed from the skull base to the thoracic inlet. Lashanda ges are reviewed in the axial, sagittal, and coronal planes. IV contrast was not administered for thi s examination. A dose lowering technique was utilized adhering to the principles of ALARA. FINDINGS: The visualized portions of the lung apices reveal no evidence of pneumothorax. The prevertebral soft tissues are normal. No fractures or traumatic subluxations are visualized. There are multilevel degenerative changes. Mild anterolisthesis of C3 on C4 and C4 on C5 is felt to b e degenerative. IMPRESSION: No evidence of acute fracture or traumatic subluxation. ACT 112: Negative or not required by law. Electronically signed by: Stefano Colon M.D. 12/03/2020 12:08 PM
[2020-12-03 12:14] LABS: Alanine Aminotransferase 13 U/L (12-78); Albumin Level 3.5 gm/dl (3.4-5.0); Aspartate Aminotransferase 15 U/L (15-37); BUN Creatinine Ratio 11.3 (10-20); Blood Urea Nitrogen 9 mg/dl (7-18); Calcium 9.9 mg/dl (8.5-10.1); Carbon Dioxide 29 mmol/L (21-32); Chloride 105 mmol/L (98-107); Creatinine Clr Calc Pharmacy 36.7 ml/min; Est GFR (African American) 77.8; Est GFR (Non-African American) 67.1; Glucose 99 mg/dl (70-99); Lipase 46 U/L (73-393); Potassium 3.7 mmol/L (3.5-5.1); Sodium 141 mmol/L (136-145)
[2020-12-03 12:19] LABS: Alkaline Phosphatase 122 U/L (45-117); Bilirubin,Total 0.8 mg/dl (0.2-1); Globulin 3.6 gm/dl (2.5-4.0); Total Protein 7.1 gm/dl (6.4-8.2); Troponin I < 0.015 ng/ml (0-0.045)
[2020-12-03 12:53] LABS: Appearance Urine Clear (Clear); Bilirubin Urine Negative (Negative); Blood Urine Negative (Negative); Color Urine Yellow; Glucose Urine UA Negative (Negative); Ketones Urine Negative (Negative); Leukocyte Esterase Urine Negative (Negative); Nitrite Urine Negative (Negative); Protein Urine Negative (Negative); Specific Gravity Urine 1.006 (1.000-1.030); Urobilinogen Urine Negative (Negative); pH Urine 7.5 (4.5-7.5)
--- NOTE | 2020-12-03 13:04 | Electrocardiogram Report ---
Test Reason : Blood Pressure : / mmHG Vent. Rate : 068 BPM Atrial Rate : 072 BPM P-R Int : 000 ms QRS Dur : 086 ms QT Int : 416 ms P-R-T Axes : 000 -36 058 degrees QTc Int : 442 ms Sinus rhythm Left axis deviation Abnormal ECG When compared with ECG of 15-OCT-2020 19:42, QRS axis Shifted left Confirmed by Jonathan Irizarry ([id number]) on 12/03/2020 1:03:40 PM Referred By: REFERRED SELF Confirmed By:Jacques Irizarry
--- NOTE | 2020-12-03 14:10 | History & Physical Report ---
Date of Service December 03, 2020 Assessment & Plan (1) Dizziness: (2) COPD (chronic obstructive pulmonary disease): (3) Seizure disorder: (4) Rheumatoid arthritis: (5) Anemia of chronic disease: (6) Restless leg syndrome: This is an 80yo F with a PMH of RA on chronic prednisone, COPD, PVD, seizure disorder and other medical problems listed below who presents with dizziness, confusion and ambulatory dysfunction since this morning. Acute metabolic encephalopathy Dizziness Per family, patient was at cognitive baseline last evening CT head with no acute intracranial findings No leukocytosis or electrolyte abn, hgb stable at 10.5. Covid screen negative. CXR with slight progression in the diffuse interstitial thickening but no e/o lobar consolidation Poor nutritional status and appears dehydrated - IV fluids, nutrition consult Has been admitted numerous times for dizziness, thought to be more lightheadedness in setting of dehydration in the past. Brain MRI, MRA head/neck all performed in 11/24 and unremarkable Keppra level pending, utox pending. ? If taking home medications appropriately. Per PDMP, receiving oxycodone from multiple prescribers - attempted to contact son to discuss medications Re-evaluate opioids, re-hydrate, consider MRI brain and EEG if dizziness persists or patient develops worsening confusion Fall precautions, PT/OT eval Fall at home Ambulatory dysfunction Deconditioned, poor nutrition Has required SNF placement in the past due to similar weakness and ambulatory dysfunction Fall precautions, PT/OT eval COPD Respiratory status appears to be stable Continue Spiriva, albuterol PRN, prednisone Seizure disorder No recent seizures. Continue Keppra Rheumatoid arthritis Continue prednisone, tylenol PRN Anemia of chronic disease At baseline at 10.5 RLS Continue Ropinirole DVT Ppx: SQ heparin Code status: DNR PCP: Leonor Dispo: Observation med tele. Patient seen in collaboration with Dr. Rayo. Please see addendum. History of Present Illness Chief Complaint: dizziness Primary Care Provider: Zakia Galvez, DO This is an 80yo F with a PMH of RA on chronic prednisone, COPD, PVD, seizure disorder and other medical problems listed below who presents with increasing dizziness over the past few days. Patient is a poor historian due to altered mental status. Endorses that the room is spinning and she has a headache. Thinks she has been falling at home but is not sure. Endorses living alone. Denies any chest pain, palpitations, shortness of breath or abdominal pain. Alert and oriented to self but not to place or time. Required to assist to ambulate to restroom during interview and was very unsteady. Admitted multiple times over the past few years for dizziness/lightheadedness that is usually improved with IV hydration. Has poor nutrition and has been seen by the dietitian before. Also seen by psychiatry on previous admission as well-felt there may be underlying eating disorder contributing. History of seizure disorder on Keppra. Denies any seizure in the past 5 years. Last admission was in September 2020 when she was found to have Covid pneumonia. Was discharged home at that time with services. Was able to get in touch with EARNEST King who states that since last hospital stay, patient has been doing better. Lives alone with home health and family helping. Was seen last evening to be A&O x 3 and at baseline watching TV. Was confused this morning and fell down, hitting her head. Also seemed a lot less steady on her feet. Son helps with medications. Brought to ED due to worsening condition and did not feel safe to leave her at home alone. Confirmed CODE STATUS as a DNR with family. Allergies Allergy/AdvReac Type Severity Reaction Status Date / Time pollen extracts Allergy Mild SEASONAL-ITCHY Verified 10/15/20 22:21 EYES,RUNNY NOSE Home Medications Medication Instructions Recorded Confirmed Type atorvastatin 20 mg PO HS 07/13/18 12/03/20 History prednisone 5 mg PO DAILY 07/13/18 12/03/20 History ropinirole 0.25 mg PO HS 07/13/18 12/03/20 History Spiriva Respimat 1 inh INHALATION DAILY 07/09/20 12/03/20 History oxycodone 5 mg PO Q6H PRN 07/09/20 12/03/20 History levetiracetam 250 mg PO Q12H 09/24/20 12/03/20 History amitriptyline 25 mg PO HS 10/15/20 12/03/20 History famotidine 20 mg PO DAILY 10/15/20 12/03/20 History baclofen 10 mg PO TID PRN 12/03/20 12/03/20 History Past Med/Surg History Medical History Allergic rhinitis Anemia of chronic disease Anxiety Blind right eye COPD (chronic obstructive pulmonary disease) COVID-23 Sep 2020 DNR (do not resuscitate) Hip fracture Restless leg syndrome Rheumatoid arthritis Seizure disorder Surgical History Status post appendectomy Status post cataract extraction Status post exploratory laparotomy "x3 for adhesions" Status post hysterectomy Status post ovarian cystectomy Status post tonsillectomy Status post tubal ligation Family History Brother Cancer Brother Diabetes Sister Diabetes Sister Heart disease Sister Stroke Mother Heart disease Other Family history non-contributory Social History Smoking Status: Current every day smoker Tobacco Type: Cigarettes Cigarettes Per Day: 2; Number of Years Since Quit: 29; Second Hand Exposure: Yes; Do You Dip or Chew Tobacco: No; Tobacco Cessation Education Requested by Patient: No Hx Alcohol Use: No Hx Substance Use: No Preferred Language: Cameroonian Communication Ability: Effective Visual Impairment: Blindness Clipping Marker Required: No Beliefs That Will Affect Care: None marital status: / Current Living Situation: Alone Current Living Situation Comment: in apartment Feels Safe at Home: Yes Safety Concerns: Feels Safe At This Time Assistive Devices: Walker Review of Systems Review of Systems: Limited due to cognitive status Physical Exam Physical Exam: General Appearance: vitals as above, NAD, appears uncomfortable, agitated, cachectic, Head: normocephalic, atraumatic Eyes: + Blind R eye, PERRL, conjunctivae normal, anicteric sclerae ENT: external ear and nose normal, oropharynx normal Neck: normal visual inspection, trachea midline, no thyromegaly Respiratory: normal respiratory effort, lungs clear to auscultation, no wheeze, rales, rhonchi. No accessory muscle use Cardiovascular: regular rate, rhythm, no murmur, normal peripheral pulses, no BLE edema. Vessels: no JVD Chest: normal inspection of chest Abdomen/GI: normal bowel sounds, soft, nontender, no hepatosplenomegaly Extremities/Musculoskeletal: no cyanosis or clubbing, extremities motor strength 5/5. + Gait abnormality Neurologic: PERRL, EOMI, accommodation nl, no face palsy, no dysarthria, CN's II-XI intact bilaterally and moves all extremities Psychiatric: A+Ox person but not to place, time or situation, difficulty following conversation or responding appropriately to questions Skin: no rashes, normal color, warm/dry Results & Data Results & Data ([facility]) Vital Signs (Past 12 Hours) Vital Signs Temp Pulse Resp BP Pulse Ox 12/03/20 13:50 75 100 12/03/20 13:40 73 100 12/03/20 13:31 69 100 12/03/20 13:30 69 19 115/49 L 100 12/03/20 13:20 71 100 12/03/20 13:10 68 16 100 12/03/20 13:01 70 12/03/20 13:00 69 18 126/45 L 12/03/20 12:50 66 21 12/03/20 12:40 66 18 93 12/03/20 12:33 71 18 156/92 H 12/03/20 12:30 72 15 12/03/20 12:20 67 12/03/20 12:10 69 12 12/03/20 12:03 68 12/03/20 11:50 65 12/03/20 11:40 66 14 12/03/20 11:30 62 12/03/20 11:20 67 18 12/03/20 11:10 76 16 12/03/20 11:09 36.5 C 66 20 172/70 H 96 12/03/20 11:04 65 13 12/03/20 10:56 63 172/70 H Laboratory Results Short CBC 12/03/20 Range/Units 11:46 WBC 7.82 (4.8-10.8) K/uL Hgb 10.5 L (12.0-16.0) g/dL Hct 31.0 L (37-47) % Plt Count 180 (130-400) K/uL BMP 12/03/20 11:46 Sodium 141 Potassium 3.7 Chloride 105 Carbon Dioxide 29 BUN 9 Creatinine 0.82 Glucose 99 Calcium 9.9 Cardiac Enzymes 12/03/20 Range/Units 11:46 Troponin I < 0.015 (0-0.045) ng/ml Liver Function 12/03/20 Range/Units 11:46 Total Bilirubin 0.8 (0.2-1) mg/dl AST 15 (15-37) U/L ALT 13 (12-78) U/L Alkaline Phosphatase 122 H (45-117) U/L Albumin 3.5 (3.4-5.0) gm/dl Urine 12/03/20 Range/Units 12:34 Urine Color Yellow Urine Appearance Clear (Clear) Urine pH 7.5 (4.5-7.5) Ur Specific [place] 1.006 (1.000-1.030) Urine Protein Negative (Negative) Urine Glucose (UA) Negative (Negative) Diagnostic Findings CT head: IMPRESSION: No acute intracranial findings Cervical spine CT: IMPRESSION: No evidence of acute fracture or traumatic subluxation. CXR: IMPRESSION: 1. Slight progression in the diffuse interstitial thickening 2. No evidence of lobar consolidation 3. Right hilar prominence, a finding which may be accentuated due to rotation. Supervising Physician Co-Signing Physician Notes Pt was seen and examined. Agreed with Jasmine GONZALEZ exam, assessment and plan. 80 yo F with a PMH of RA on chronic prednisone, COPD, PVD, seizure disorder present to the ER with dizziness. Pt had previous admission for dizziness. She said that she feels the room was spinning with her. Denies any chest pain, palpitations, shortness of breath or abdominal pain. No focal neuro deficit on exam. Pt is on narcotic but UDS check was negative. CT head showed no acute intracranial abnormality. Will give gently hydration. Will check Keppra level. Will hold on any MRI of the head since pt has no focal neuro deficit on exam. will talk to son about narcotic. PT/OT eval. Fall precaution. Continue monitor closely. MD Perri
[2020-12-03] MEDS ORDERED: ACETAMINOPHEN 325 MG TAB PO STA (15:24)
[2020-12-03] MEDS ORDERED: SODIUM CHLORIDE 0.9% 1000ML 500 ML IV ONE (15:24)
[2020-12-03] MEDS ORDERED: MECLIZINE 12.5 MG TAB PO PRN (15:25)
--- NOTE | 2020-12-03 15:33 | Electrocardiogram Report ---
Test Reason : Blood Pressure : / mmHG Vent. Rate : 064 BPM Atrial Rate : 064 BPM P-R Int : 148 ms QRS Dur : 090 ms QT Int : 416 ms P-R-T Axes : 080 -37 063 degrees QTc Int : 429 ms Normal sinus rhythm Left axis deviation Confirmed by Jonathan Irizarry ([id number] on 12/03/2020 3:33:00 PM Referred By: REFERRED SELF Confirmed By:Jacques Irizarry
[2020-12-03 16:58] LABS: Amphetamines+Metham, Urine Neg (Neg); Barbiturates, Urine Neg (Neg); Benzodiazepine, Urine Neg (Neg); Cocaine, Urine Neg (Neg); MDMA (Ecstacy), Urine Neg (Neg); Methadone, Urine Neg (Neg); Opiate, Urine Neg (Neg); Phencyclidine, Urine Neg (Neg)
[2020-12-03] MEDS ORDERED: POLYETHYLENE (MIRALAX) 17 GM PACK PO PRN (17:19)
[2020-12-03] MEDS ORDERED: ONDANSETRON INJ 2 MG/ML 2 ML VIAL IV PRN (17:19)
[2020-12-03] MEDS ORDERED: SODIUM CHLORIDE 0.9% 1000ML 1,000 ML IV SCH (18:45)
[2020-12-03] MEDS: ATORVASTATIN 20 MG TAB PO SCH (21:02)
[2020-12-03] MEDS: levETIRAcetam 250 MG TAB PO SCH (21:02)
[2020-12-03] MEDS: rOPINIRole HCL 0.25 MG TABLET PO SCH (21:02)
[2020-12-03] MEDS: AMITRIPTYLINE HCL 25 MG TAB PO SCH (21:02)
[2020-12-03] MEDS: HEPARIN SOD 5,000 UNIT/0.5 ML VIAL SQ SCH (21:02)
[2020-12-04 07:16] LABS: Hematocrit (blood only) 29.7 % (37-47); Hemoglobin 9.7 g/dL (12.0-16.0); Mean Corpuscular Hgb Conc 32.7 g/dL (32-36); Mean Corpuscular Volume 104.2 fL (80-100); Mean Platelet Volume 8.9 fL (7.4-10.4); Platelet Count 178 K/uL (130-400); RDW Coefficient of Variation 18.7 % (11.5-14.5); RDW Standard Deviation 71.4 fL (36.4-46.3); Red Blood Count 2.85 M/uL (4.2-5.4); White Blood Count 3.64 K/uL (4.8-10.8)
[2020-12-04 07:47] LABS: BUN Creatinine Ratio 14.3 (10-20); Calcium 9.1 mg/dl (8.5-10.1); Creatinine Clr Calc Pharmacy 39.5 ml/min; Est GFR (African American) 97.5; Est GFR (Non-African American) 84.1; Potassium 3.9 mmol/L (3.5-5.1)
[2020-12-04] MEDS: HEPARIN SOD 5,000 UNIT/0.5 ML VIAL SQ SCH ×2 (08:21→21:51)
[2020-12-04] MEDS: levETIRAcetam 250 MG TAB PO SCH ×2 (08:21→21:52)
[2020-12-04] MEDS: predniSONE 5 MG TAB PO SCH (08:22)
[2020-12-04] MEDS: FAMOTIDINE 20 MG TAB PO SCH (08:22)
[2020-12-04] MEDS: UMECLIDINIUM BROMIDE 62.5MCG/BLISTER 7 PUFFS/INHALER INH SCH (08:22)
[2020-12-04] MEDS: ACETAMINOPHEN 325 MG TAB PO PRN ×2 (08:27→23:39)
[2020-12-04] MEDS: LIDOCAINE 5% 1 PATCH TD SCH (11:02)
[2020-12-04] MEDS: oxyCODONE HCL IR 5 MG TAB (IMMEDIATE RELEASE) PO PRN ×2 (11:02→21:55)
--- NOTE | 2020-12-04 16:16 | Hospitalist Progress Note ---
Date of Service December 04, 2020 Assessment & Plan (1) Dizziness: Had previous admission for dizziness that resolved after IV hydration CT head with no acute intracranial findings No focal neuro deficit on exam Positive orthosthatic yesterday Received IVF Continue PT/OT Dizziness resolved Fall precautions Pt agrees to go to rehab (2) COPD (chronic obstructive pulmonary disease): Continue Spiriva, albuterol PRN, prednisone Stable (3) Seizure disorder: No recent seizures. Continue Keppra (4) Rheumatoid arthritis: Continue prednisone, tylenol PRN Will give a Oxycodone 2.5 mg Pt received about 200 tablets of oxycodone this month with last script on 11/24 for 120 tablets Follow up with rheumatology (5) Anemia of chronic disease: Hgb stable at 9.7 today (6) Restless leg syndrome: Continue Ropinirole DVT Ppx: SQ heparin Code status: DNR Dispo: Plan to go to rehab Admission and Anticipated Discharge Date Admission Date: December 03, 2020 Subjective Pt was was seen and examined for follow up of dizziness Lying in bed with with no distress. Pt said that she feels much better today She said that she does not have anymore dizziness. She said that she is having alot of pain in her knee Pt said that she does not remember when she took the narcotic at home because they have been given her less tab of oxycodone Her UDS was negative Denies any chest pain, palpitation, dizziness and SOB Physical Exam Physical Exam: General- No acute distress Head- atraumatic Eyes- PERRL, EOMI, ENT- oropharynx clear Neck- supple, no JVD Lungs- clear to auscultation Heart- regular rhythm; no murmur Abdomen- normal bowel sounds, soft, nontender Extremities- no calf tenderness Neuro- alert, oriented x 3; PERRL, EOMI; no facial palsy; no dysarthria Skin- warm & dry Results & Data Results & Data ([facility]) Vital Signs (Past 12 Hours) Vital Signs Temp Pulse Pulse Resp BP Pulse Ox 12/04/20 16:01 73 12/04/20 15:48 36.9 C 71 18 158/71 H 95 12/04/20 11:27 36.7 C 70 18 165/71 H 96 12/04/20 07:20 36.5 C 76 18 164/65 H 94
[2020-12-04] MEDS: AMITRIPTYLINE HCL 25 MG TAB PO SCH (21:51)
[2020-12-04] MEDS: ATORVASTATIN 20 MG TAB PO SCH (21:52)
[2020-12-04] MEDS: rOPINIRole HCL 0.25 MG TABLET PO SCH (21:53)
[2020-12-05 07:16] LABS: Mean Corpuscular Hemoglobin 34.2 pg (25-34); Mean Corpuscular Hgb Conc 33.3 g/dL (32-36); Mean Corpuscular Volume 102.6 fL (80-100); Mean Platelet Volume 8.8 fL (7.4-10.4); Platelet Count 184 K/uL (130-400); RDW Coefficient of Variation 18.5 % (11.5-14.5); RDW Standard Deviation 68.3 fL (36.4-46.3); Red Blood Count 2.34 M/uL (4.2-5.4); White Blood Count 3.73 K/uL (4.8-10.8)
[2020-12-05 07:56] LABS: BUN Creatinine Ratio 23.2 (10-20); Calcium 8.6 mg/dl (8.5-10.1); Creatinine Clr Calc Pharmacy 33.1 ml/min; Est GFR (African American) 83.9; Est GFR (Non-African American) 72.4; Potassium 3.7 mmol/L (3.5-5.1)
[2020-12-05] MEDS: HEPARIN SOD 5,000 UNIT/0.5 ML VIAL SQ SCH ×2 (08:58→20:17)
[2020-12-05] MEDS: UMECLIDINIUM BROMIDE 62.5MCG/BLISTER 7 PUFFS/INHALER INH SCH (08:59)
[2020-12-05] MEDS: levETIRAcetam 250 MG TAB PO SCH ×2 (09:00→20:17)
[2020-12-05] MEDS: predniSONE 5 MG TAB PO SCH (09:00)
[2020-12-05] MEDS: LIDOCAINE 5% 1 PATCH TD SCH (09:01)
[2020-12-05] MEDS: FAMOTIDINE 20 MG TAB PO SCH (09:02)
--- NOTE | 2020-12-05 15:01 | Hospitalist Progress Note ---
Date of Service December 05, 2020 Assessment & Plan (1) Dizziness: Had previous admission for dizziness that resolved after IV hydration CT head with no acute intracranial findings No focal neuro deficit on exam Positive orthosthatic yesterday Received IVF Continue PT/OT Dizziness resolved Fall precautions Pt agrees to go to rehab (2) COPD (chronic obstructive pulmonary disease): Continue Spiriva, albuterol PRN, prednisone Stable (3) Seizure disorder: No recent seizures. Continue Keppra (4) Rheumatoid arthritis: Continue prednisone, tylenol PRN Will give a Oxycodone 2.5 mg Pt received about 200 tablets of oxycodone this month with last script on 11/24 for 120 tablets Follow up with rheumatology (5) Anemia of chronic disease: Hgb stable at 9.7 today (6) Restless leg syndrome: Continue Ropinirole DVT Ppx: SQ heparin Code status: DNR Dispo: Plan to go to rehab Admission and Anticipated Discharge Date Admission Date: December 04, 2020 Subjective Pt was was seen and examined for follow up of dizziness Lying in bed with with no distress. Pt said that she feels much better today Denies any chest pain, palpitation, dizziness and SOB Physical Exam Physical Exam: General- No acute distress Head- atraumatic Eyes- PERRL, EOMI, ENT- oropharynx clear Neck- supple, no JVD Lungs- clear to auscultation Heart- regular rhythm; no murmur Abdomen- normal bowel sounds, soft, nontender Extremities- no calf tenderness Neuro- alert, oriented x 3; PERRL, EOMI; no facial palsy; no dysarthria Skin- warm & dry Results & Data Results & Data ([facility]) Vital Signs (Past 12 Hours) Vital Signs Temp Pulse Pulse Resp BP BP Pulse Ox 12/05/20 14:53 36.9 C 74 18 134/68 94 12/05/20 11:32 37 C 67 18 134/64 96 12/05/20 07:10 78 12/05/20 03:29 36.6 C 72 18 171/71 H 93
[2020-12-05] MEDS: oxyCODONE HCL IR 5 MG TAB (IMMEDIATE RELEASE) PO PRN (16:20)
[2020-12-05] MEDS: ACETAMINOPHEN 325 MG TAB PO PRN (18:26)
[2020-12-05] MEDS: ATORVASTATIN 20 MG TAB PO SCH (20:17)
[2020-12-05] MEDS: rOPINIRole HCL 0.25 MG TABLET PO SCH (20:17)
[2020-12-05] MEDS: AMITRIPTYLINE HCL 25 MG TAB PO SCH (20:17)
[2020-12-05] MEDS: CAPSAICIN CR 0.075% 60 GM TUBE EXT PRN (22:28)
[2020-12-06] MEDS: oxyCODONE HCL IR 5 MG TAB (IMMEDIATE RELEASE) PO PRN ×3 (00:23→17:43)
[2020-12-06] MEDS: UMECLIDINIUM BROMIDE 62.5MCG/BLISTER 7 PUFFS/INHALER INH SCH (08:48)
[2020-12-06] MEDS: HEPARIN SOD 5,000 UNIT/0.5 ML VIAL SQ SCH ×2 (08:48→20:29)
[2020-12-06] MEDS: levETIRAcetam 250 MG TAB PO SCH ×2 (08:49→20:29)
[2020-12-06] MEDS: CAPSAICIN CR 0.075% 60 GM TUBE EXT PRN ×2 (08:49→18:16)
[2020-12-06] MEDS: predniSONE 5 MG TAB PO SCH (08:55)
[2020-12-06] MEDS: LIDOCAINE 5% 1 PATCH TD SCH (08:55)
[2020-12-06] MEDS: FAMOTIDINE 20 MG TAB PO SCH (08:55)
[2020-12-06 08:57] LABS: Mean Corpuscular Hemoglobin 34.4 pg (25-34); Mean Corpuscular Hgb Conc 33.3 g/dL (32-36); Mean Corpuscular Volume 103.1 fL (80-100); Platelet Count 205 K/uL (130-400); RDW Coefficient of Variation 18.6 % (11.5-14.5); RDW Standard Deviation 69.3 fL (36.4-46.3); Red Blood Count 2.91 M/uL (4.2-5.4); White Blood Count 4.89 K/uL (4.8-10.8)
[2020-12-06] MEDS: ACETAMINOPHEN 325 MG TAB PO PRN ×2 (15:17→21:43)
--- NOTE | 2020-12-06 16:53 | Hospitalist Progress Note ---
Date of Service December 06, 2020 Assessment & Plan (1) Dizziness: Had previous admission for dizziness that resolved after IV hydration CT head with no acute intracranial findings No focal neuro deficit on exam Positive orthosthatic yesterday Received IVF Continue PT/OT Dizziness resolved Fall precautions Pt agrees to go to rehab (2) COPD (chronic obstructive pulmonary disease): Continue Spiriva, albuterol PRN, prednisone Stable (3) Seizure disorder: No recent seizures. Continue Keppra (4) Rheumatoid arthritis: Continue prednisone, tylenol PRN Will give a Oxycodone 2.5 mg Pt received about 200 tablets of oxycodone this month with last script on 11/24 for 120 tablets Follow up with rheumatology (5) Anemia of chronic disease: Hgb stable at 10 today (6) Restless leg syndrome: Continue Ropinirole DVT Ppx: SQ heparin Code status: DNR Dispo: Plan to go to rehab Admission and Anticipated Discharge Date Admission Date: December 04, 2020 Subjective Pt was was seen and examined for follow up of dizziness Sitting in bed with with no distress. Pt said that she feels much better today Denies any chest pain, palpitation, dizziness and SOB Physical Exam Physical Exam: General- No acute distress Head- atraumatic Eyes- PERRL, EOMI, ENT- oropharynx clear Neck- supple, no JVD Lungs- clear to auscultation Heart- regular rhythm; no murmur Abdomen- normal bowel sounds, soft, nontender Extremities- no calf tenderness Neuro- alert, oriented x 3; PERRL, EOMI; no facial palsy; no dysarthria Skin- warm & dry Results & Data Results & Data ([facility]) Vital Signs (Past 12 Hours) Vital Signs Temp Pulse Pulse Resp BP Pulse Ox 12/06/20 15:38 36.7 C 97 H 17 171/53 H 94 12/06/20 14:20 88 12/06/20 11:22 36.5 C 82 20 176/75 H 96 12/06/20 07:34 36.7 C 74 18 145/71 H 92 12/06/20 07:07 73
[2020-12-06] MEDS: AMITRIPTYLINE HCL 25 MG TAB PO SCH (20:29)
[2020-12-06] MEDS: rOPINIRole HCL 0.25 MG TABLET PO SCH (20:29)
[2020-12-06] MEDS: ATORVASTATIN 20 MG TAB PO SCH (20:29)
[2020-12-07] MEDS: oxyCODONE HCL IR 5 MG TAB (IMMEDIATE RELEASE) PO PRN ×3 (01:42→23:45)
[2020-12-07] MEDS: levETIRAcetam 250 MG TAB PO SCH ×2 (07:58→21:09)
[2020-12-07] MEDS: predniSONE 5 MG TAB PO SCH (07:58)
[2020-12-07] MEDS: UMECLIDINIUM BROMIDE 62.5MCG/BLISTER 7 PUFFS/INHALER INH SCH (07:59)
[2020-12-07] MEDS: FAMOTIDINE 20 MG TAB PO SCH (07:59)
[2020-12-07] MEDS: HEPARIN SOD 5,000 UNIT/0.5 ML VIAL SQ SCH ×2 (08:02→21:09)
[2020-12-07] MEDS: LIDOCAINE 5% 1 PATCH TD SCH (08:02)
[2020-12-07] MEDS: CAPSAICIN CR 0.075% 60 GM TUBE EXT PRN (15:36)
--- NOTE | 2020-12-07 17:49 | Hospitalist Progress Note ---
Date of Service December 07, 2020 Assessment & Plan (1) Dizziness: Had previous admission for dizziness that resolved after IV hydration CT head with no acute intracranial findings No focal neuro deficit on exam Positive orthosthatic yesterday Received IVF Continue PT/OT Dizziness resolved Fall precautions waiting for placement (2) COPD (chronic obstructive pulmonary disease): Continue Spiriva, albuterol PRN, prednisone Stable (3) Seizure disorder: No recent seizures. Continue Keppra (4) Rheumatoid arthritis: Continue prednisone, tylenol PRN Continue Oxycodone 2.5 mg Pt received about 200 tablets of oxycodone this month with last script on 11/24 for 120 tablets, but her UDS negative Tried to call son to address that, but he was not available Follow up with rheumatology (5) Anemia of chronic disease: Hgb stable at 10 today (6) Restless leg syndrome: Continue Ropinirole DVT Ppx: SQ heparin Code status: DNR Dispo: Waiting for placement Admission and Anticipated Discharge Date Admission Date: December 04, 2020 Subjective Pt was was seen and examined for follow up of dizziness Lying in bed with no distress Pt said that she feels much fine called son, but answered and let her know that pt was stable Denies any chest pain, palpitation, dizziness and SOB Physical Exam Physical Exam: General- No acute distress Head- atraumatic Eyes- PERRL, EOMI, ENT- oropharynx clear Neck- supple, no JVD Lungs- clear to auscultation Heart- regular rhythm; no murmur Abdomen- normal bowel sounds, soft, nontender Extremities- no calf tenderness Neuro- alert, oriented x 3; PERRL, EOMI; no facial palsy; no dysarthria Skin- warm & dry Results & Data Results & Data ([facility]) Vital Signs (Past 12 Hours) Vital Signs Temp Pulse Pulse Resp BP BP Pulse Ox 12/07/20 15:52 85 12/07/20 15:37 36.8 C 74 18 148/77 H 95 12/07/20 11:02 37 C 79 16 144/75 H 93 12/07/20 08:09 85 20 152/74 H 178/75 H 94 12/07/20 07:52 36.9 C 80 16 122/67 92 12/07/20 07:09 77
[2020-12-07] MEDS ORDERED: SODIUM CHLORIDE 0.65% NA SOLN 45 ML (OCEAN) PRN (21:05)
[2020-12-07] MEDS: ACETAMINOPHEN 325 MG TAB PO PRN (21:08)
[2020-12-07] MEDS: AMITRIPTYLINE HCL 25 MG TAB PO SCH (21:09)
[2020-12-07] MEDS: ATORVASTATIN 20 MG TAB PO SCH (21:09)
[2020-12-07] MEDS: rOPINIRole HCL 0.25 MG TABLET PO SCH (21:09)
[2020-12-08 06:52] LABS: BUN Creatinine Ratio 33.2 (10-20); Calcium 8.7 mg/dl (8.5-10.1); Creatinine Clr Calc Pharmacy 32.6 ml/min; Est GFR (Non-African American) 78.5; Potassium 3.9 mmol/L (3.5-5.1)
[2020-12-08 06:53] LABS: Phosphorus 4.1 mg/dl (2.5-4.9)
[2020-12-08] MEDS: levETIRAcetam 250 MG TAB PO SCH ×2 (08:41→21:19)
[2020-12-08] MEDS: UMECLIDINIUM BROMIDE 62.5MCG/BLISTER 7 PUFFS/INHALER INH SCH (08:41)
[2020-12-08] MEDS: FAMOTIDINE 20 MG TAB PO SCH (08:42)
[2020-12-08] MEDS: HEPARIN SOD 5,000 UNIT/0.5 ML VIAL SQ SCH ×3 (08:42→21:18)
[2020-12-08] MEDS: LIDOCAINE 5% 1 PATCH TD SCH (08:42)
[2020-12-08] MEDS: predniSONE 5 MG TAB PO SCH (08:43)
[2020-12-08] MEDS: oxyCODONE HCL IR 5 MG TAB (IMMEDIATE RELEASE) PO PRN ×2 (09:25→17:40)
--- NOTE | 2020-12-08 14:53 | Hospitalist Progress Note ---
Date of Service December 08, 2020 Assessment & Plan (1) Dizziness: Had previous admission for dizziness that resolved after IV hydration CT head with no acute intracranial findings No focal neuro deficit on exam Positive orthosthatics on admission Received IVF Continue PT/OT Dizziness resolved Fall precautions waiting for placement (2) COPD (chronic obstructive pulmonary disease): Continue Spiriva, albuterol PRN, prednisone Stable (3) Seizure disorder: No recent seizures. Continue Keppra (4) Rheumatoid arthritis: Continue prednisone, tylenol PRN Continue Oxycodone 2.5 mg Pt received about 200 tablets of oxycodone this month with last script on 11/24 for 120 tablets, but her UDS negative Tried to call son to address that, but he was not available Follow up with rheumatology (5) Anemia of chronic disease: Hgb stable at 10 (6) Restless leg syndrome: Continue Ropinirole DVT Ppx: SQ heparin Code status: DNR Dispo: Waiting for placement Admission and Anticipated Discharge Date Admission Date: December 04, 2020 Subjective Pt was was seen and examined for follow up of dizziness Lying in bed with no distress Pt said that she feels better but tired, worked w/ PT/OT earlier , said she walked to hallway Denies any chest pain, palpitation, dizziness and SOB Review of Systems Review of Systems: All systems reviewed & are unremarkable except as noted in HPI & below Constitutional: + fatigue; no fever and no chills Respiratory: no cough and no dyspnea Cardiovascular: no chest pain and no palpitations Gastrointestinal: no abdominal pain, no nausea and no vomiting Physical Exam Physical Exam: General- frail, elderly female, laying in bed, in no acute distress Head- atraumatic Eyes- EOMI ENT- oropharynx clear Neck- supple, no JVD Lungs- clear to auscultation b/l Heart- regular rhythm; no murmur Abdomen- normal bowel sounds, soft, nontender Extremities- no calf tenderness Neuro- alert, oriented x 3;, EOMI; no facial palsy; no dysarthria, moves extremities Skin- warm & dry Results & Data Results & Data ([facility]) Vital Signs (Past 12 Hours) Vital Signs Temp Pulse Pulse Resp BP Pulse Ox 12/08/20 12:16 36.9 C 79 16 126/63 93 12/08/20 07:43 36.6 C 76 16 144/67 H 92 12/08/20 07:37 78 12/08/20 03:22 36.6 C 82 17 148/79 H 91 Laboratory Results 12/08/20 12/04/20 Range/Units 06:05 06:51 Sodium 137 (136-145) mmol/L Potassium 3.9 (3.5-5.1) mmol/L Chloride 105 (98-107) mmol/L Carbon Dioxide 27 (21-32) mmol/L Anion Gap 5.0 (3-11) BUN 24 H (7-18) mg/dl Creatinine 0.72 (0.6-1.2) mg/dl Est Cr Clr Drug Dosing 32.6 ml/min Est GFR ( Amer) 91.0 Est GFR (Non-Af Amer) 78.5 BUN/Creatinine Ratio 33.2 H (10-20) Glucose 88 (70-99) mg/dl Calcium 8.7 (8.5-10.1) mg/dl Phosphorus 4.1 (2.5-4.9) mg/dl Levetiracetam 11.3 L (12.0-46.0) mcg/mL Medications Administered Current Inpatient Medications Acetaminophen (Acetaminophen 325 Mg Tab) 650 mg PO Q4H PRN PRN Reason: Pain or Fever Stop: 01/02/21 17:18 Last Admin: 12/07/20 21:08 Dose: 650 mg Documented by: Amitriptyline HCl (Amitriptyline Hcl 25 Mg Tab) 25 mg PO HS YOLANDA Stop: 01/02/21 20:59 Last Admin: 12/07/20 21:09 Dose: 25 mg Documented by: Atorvastatin Calcium (Atorvastatin 20 Mg Tab) 20 mg PO HS YOLANDA Stop: 01/02/21 20:59 Last Admin: 12/07/20 21:09 Dose: 20 mg Documented by: Capsaicin (Capsaicin Cr 0.075% 60 Gm Tube) 1 appln EXT TID PRN PRN Reason: prn back pain Stop: 01/04/21 21:44 Last Admin: 12/07/20 15:36 Dose: 1 appln Documented by: Famotidine (Famotidine 20 Mg Tab) 20 mg PO DAILY YOLANDA Stop: 01/03/21 08:59 Last Admin: 12/08/20 08:42 Dose: 20 mg Documented by: Heparin Sodium (Porcine) (Heparin Sod 5,000 Unit/0.5 Ml Vial) 5,000 units SQ Q12 [facility] Stop: 01/02/21 20:59 Last Admin: 12/08/20 09:25 Dose: Not Given Documented by: Levetiracetam (Levetiracetam 250 Mg Tab) 250 mg PO BID [facility] Stop: 01/02/21 18:44 Last Admin: 12/08/20 08:41 Dose: 250 mg Documented by: Lidocaine (Lidocaine 5% 1 Patch) 1 patch TD QAM [facility] Stop: 01/03/21 09:44 Last Admin: 12/08/20 08:42 Dose: 1 patch Documented by: Meclizine HCl (Meclizine 12.5 Mg Tab) 12.5 mg PO TID PRN PRN Reason: Vertigo Stop: 01/02/21 15:24 Last Admin: 12/03/20 16:07 Dose: 12.5 mg Documented by: Miscellaneous (Remove Lidoderm Patch) 1 ea N/A DAILY@2100 [facility] Stop: 01/03/21 20:59 Last Admin: 12/07/20 21:10 Dose: 1 ea Documented by: Ondansetron HCl (Ondansetron Inj 2 Mg/Ml 2 Ml Vial) 4 mg IV Q6H PRN PRN Reason: Nausea Stop: 01/02/21 17:18 Last Admin: 12/07/20 21:08 Dose: 4 mg Documented by: Oxycodone HCl (Oxycodone Hcl Ir 5 Mg Tab (Immediate Release)) 2.5 mg PO Q8H PRN PRN Reason: Pain Stop: 12/18/20 09:21 Last Admin: 12/08/20 09:25 Dose: 2.5 mg Documented by: Polyethylene Glycol (Polyethylene (Miralax) 17 Gm Pack) 17 gm PO DAILY PRN PRN Reason: Constipation Stop: 01/02/21 17:18 Prednisone (Prednisone 5 Mg Tab) 5 mg PO DAILY [facility] Stop: 01/03/21 08:59 Last Admin: 12/08/20 08:43 Dose: 5 mg Documented by: Ropinirole HCl (Ropinirole Hcl 0.25 Mg Tablet) 0.25 mg PO HS [facility] Stop: 01/02/21 20:59 Last Admin: 12/07/20 21:09 Dose: 0.25 mg Documented by: Sodium Chloride (Sodium Chloride 0.65% Na Soln 45 Ml ([place])) 2 sprays NA Q4 PRN PRN Reason: Dry nose Stop: 01/06/21 21:04 Last Admin: 12/07/20 21:18 Dose: 2 sprays Documented by: Umeclidinium [place] (Umeclidinium [place] 62.5mcg/Blister 7 Puffs/Inhaler) 1 puffs INH DAILY [facility]; Protocol Stop: 01/03/21 08:59 Last Admin: 12/08/20 08:41 Dose: 1 puffs Documented by:
[2020-12-08] MEDS: ACETAMINOPHEN 325 MG TAB PO PRN ×2 (16:43→21:22)
[2020-12-08] MEDS: CAPSAICIN CR 0.075% 60 GM TUBE EXT PRN (16:44)
[2020-12-08] MEDS: AMITRIPTYLINE HCL 25 MG TAB PO SCH (21:18)
[2020-12-08] MEDS: rOPINIRole HCL 0.25 MG TABLET PO SCH (21:19)
[2020-12-08] MEDS: ATORVASTATIN 20 MG TAB PO SCH (21:19)
[2020-12-09] MEDS: oxyCODONE HCL IR 5 MG TAB (IMMEDIATE RELEASE) PO PRN ×2 (01:40→09:15)
[2020-12-09 07:28] LABS: Hemoglobin 9.4 g/dL (12.0-16.0); Mean Corpuscular Hemoglobin 34.2 pg (25-34); Mean Corpuscular Hgb Conc 33.6 g/dL (32-36); Mean Corpuscular Volume 101.8 fL (80-100); Platelet Count 194 K/uL (130-400); RDW Coefficient of Variation 18.7 % (11.5-14.5); RDW Standard Deviation 67.6 fL (36.4-46.3); Red Blood Count 2.75 M/uL (4.2-5.4)
[2020-12-09 08:01] LABS: BUN Creatinine Ratio 26.6 (10-20); Calcium 9.4 mg/dl (8.5-10.1); Creatinine Clr Calc Pharmacy 34.5 ml/min; Est GFR (Non-African American) 78.5; Potassium 3.7 mmol/L (3.5-5.1)
[2020-12-09] MEDS: levETIRAcetam 250 MG TAB PO SCH (08:32)
[2020-12-09] MEDS: FAMOTIDINE 20 MG TAB PO SCH (08:32)
[2020-12-09] MEDS: predniSONE 5 MG TAB PO SCH (08:32)
[2020-12-09] MEDS: UMECLIDINIUM BROMIDE 62.5MCG/BLISTER 7 PUFFS/INHALER INH SCH (08:32)
[2020-12-09] MEDS: LIDOCAINE 5% 1 PATCH TD SCH (08:32)
[2020-12-09] MEDS: HEPARIN SOD 5,000 UNIT/0.5 ML VIAL SQ SCH (08:32)
--- NOTE | 2020-12-09 08:43 | Hospitalist Progress Note ---
Date of Service December 09, 2020 Assessment & Plan (1) Dizziness: Had previous admission for dizziness that resolved after IV hydration CT head with no acute intracranial findings No focal neuro deficit on exam Positive orthosthatics on admission Received IVF Continue PT/OT Dizziness resolved Fall precautions waiting for placement (2) COPD (chronic obstructive pulmonary disease): Continue Spiriva, albuterol PRN, prednisone Stable (3) Seizure disorder: No recent seizures. Continue Keppra (4) Rheumatoid arthritis: Continue prednisone, tylenol PRN Continue Oxycodone 2.5 mg Pt received about 200 tablets of oxycodone this month with last script on 11/24 for 120 tablets, but her UDS negative Tried to call son to address that, but he was not available Follow up with rheumatology (5) Anemia of chronic disease: Hgb stable at 9-10 (6) Restless leg syndrome: Continue Ropinirole DVT Ppx: SQ heparin Code status: DNR Dispo: Waiting for placement Admission and Anticipated Discharge Date Admission Date: December 04, 2020 Subjective Pt was was seen and examined for follow up of dizziness Lying in bed in no distress Pt has no new complaints Denies any chest pain, palpitation, dizziness and SOB Review of Systems Review of Systems: All systems reviewed & are unremarkable except as noted in HPI & below Constitutional: + fatigue; no fever and no chills Respiratory: no dyspnea Cardiovascular: no chest pain Gastrointestinal: + constipation; no abdominal pain Physical Exam Physical Exam: General- frail, elderly female, laying in bed, in no acute distress Head- atraumatic Eyes- EOMI ENT- oropharynx clear Neck- supple, no JVD Lungs- clear to auscultation b/l Heart- regular rhythm; no murmur Abdomen- normal bowel sounds, soft, nontender Extremities- no calf tenderness Neuro- alert, oriented x 3;, EOMI; no facial palsy; no dysarthria, moves extremities Skin- warm & dry Results & Data Results & Data ([facility]) Vital Signs (Past 12 Hours) Vital Signs Temp Pulse Pulse Resp BP Pulse Ox 12/09/20 07:34 36.9 C 77 18 157/69 H 95 12/09/20 07:13 78 12/09/20 02:35 36.6 C 80 18 151/57 H 92 12/09/20 01:21 82 12/08/20 23:44 37.0 C 85 18 160/58 H 94 Laboratory Results 12/09/20 12/09/20 12/04/20 Range/Units 07:15 07:15 06:51 WBC 4.70 L (4.8-10.8) K/uL RBC 2.75 L (4.2-5.4) M/uL Hgb 9.4 L (12.0-16.0) g/dL Hct 28.0 L (37-47) % MCV 101.8 H (80-100) fL MCH 34.2 H (25-34) pg MCHC 33.6 (32-36) g/dL RDW Std Deviation 67.6 H (36.4-46.3) fL RDW Coeff of Mandeep 18.7 H (11.5-14.5) % Plt Count 194 (130-400) K/uL MPV 9.0 (7.4-10.4) fL Sodium 136 (136-145) mmol/L Potassium 3.7 (3.5-5.1) mmol/L Chloride 103 (98-107) mmol/L Carbon Dioxide 27 (21-32) mmol/L Anion Gap 7.0 (3-11) BUN 19 H (7-18) mg/dl Creatinine 0.72 (0.6-1.2) mg/dl Est Cr Clr Drug Dosing 34.5 ml/min Est GFR ( Amer) 91.0 Est GFR (Non-Af Amer) 78.5 BUN/Creatinine Ratio 26.6 H (10-20) Glucose 95 (70-99) mg/dl Calcium 9.4 (8.5-10.1) mg/dl Levetiracetam 11.3 L (12.0-46.0) mcg/mL Medications Administered Current Inpatient Medications Acetaminophen (Acetaminophen 325 Mg Tab) 650 mg PO Q4H PRN PRN Reason: Pain or Fever Stop: 01/02/21 17:18 Last Admin: 12/08/20 21:22 Dose: 650 mg Documented by: Amitriptyline HCl (Amitriptyline Hcl 25 Mg Tab) 25 mg PO HS YOLANDA Stop: 01/02/21 20:59 Last Admin: 12/08/20 21:18 Dose: 25 mg Documented by: Atorvastatin Calcium (Atorvastatin 20 Mg Tab) 20 mg PO HS YOLANDA Stop: 01/02/21 20:59 Last Admin: 12/08/20 21:19 Dose: 20 mg Documented by: Capsaicin (Capsaicin Cr 0.075% 60 Gm Tube) 1 appln EXT TID PRN PRN Reason: prn back pain Stop: 01/04/21 21:44 Last Admin: 12/08/20 16:44 Dose: 1 appln Documented by: Famotidine (Famotidine 20 Mg Tab) [address] [facility] Stop: 01/03/21 08:59 Last Admin: 12/08/20 08:42 Dose: 20 mg Documented by: Heparin Sodium (Porcine) (Heparin Sod 5,000 Unit/0.5 Ml Vial) 5,[address] [facility] Stop: 01/02/21 20:59 Last Admin: 12/08/20 21:18 Dose: 5,000 units Documented by: Levetiracetam (Levetiracetam 250 Mg Tab) [address] [facility] Stop: 01/02/21 18:44 Last Admin: 12/08/20 21:19 Dose: 250 mg Documented by: Lidocaine (Lidocaine 5% 1 Patch) [address] [facility] Stop: 01/03/21 09:44 Last Admin: 12/08/20 08:42 Dose: 1 patch Documented by: Meclizine HCl (Meclizine 12.5 Mg Tab) 12.5 mg PO TID PRN PRN Reason: Vertigo Stop: 01/02/21 15:24 Last Admin: 12/03/20 16:07 Dose: 12.5 mg Documented by: Miscellaneous (Remove Lidoderm Patch) 1 ea N/A DAILY@2100 [facility] Stop: 01/03/21 20:59 Last Admin: 12/08/20 21:19 Dose: 1 ea Documented by: Ondansetron HCl (Ondansetron Inj 2 Mg/Ml 2 Ml Vial) 4 mg IV Q6H PRN PRN Reason: Nausea Stop: 01/02/21 17:18 Last Admin: 12/07/20 21:08 Dose: 4 mg Documented by: Oxycodone HCl (Oxycodone Hcl Ir 5 Mg Tab (Immediate Release)) 2.5 mg PO Q8H PRN PRN Reason: Pain Stop: 12/18/20 09:21 Last Admin: 12/09/20 01:40 Dose: 2.5 mg Documented by: Polyethylene Glycol (Polyethylene (Miralax) 17 Gm Pack) 17 gm PO DAILY PRN PRN Reason: Constipation Stop: 01/02/21 17:18 Prednisone (Prednisone 5 Mg Tab) 5 mg PO DAILY YOLANDA Stop: 01/03/21 08:59 Last Admin: 12/08/20 08:43 Dose: 5 mg Documented by: Ropinirole HCl (Ropinirole Hcl 0.25 Mg Tablet) 0.25 mg PO HS YOLANDA Stop: 01/02/21 20:59 Last Admin: 12/08/20 21:19 Dose: 0.25 mg Documented by: Sodium Chloride (Sodium Chloride 0.65% Na Soln 45 Ml (Glades)) 2 sprays NA Q4 PRN PRN Reason: Dry nose Stop: 01/06/21 21:04 Last Admin: 12/07/20 21:18 Dose: 2 sprays Documented by: Umeclidinium [place] (Umeclidinium [place] 62.5mcg/Blister 7 Puffs/Inhaler) 1 puffs INH DAILY YOLANDA; Protocol Stop: 01/03/21 08:59 Last Admin: 12/08/20 08:41 Dose: 1 puffs Documented by:
[2020-12-09] MEDS ORDERED: SENNA 8.6 MG TAB PO SCH (10:30)
[2020-12-09] MEDS ORDERED: POLYETHYLENE (MIRALAX) 17 GM PACK PO SCH (10:30)
--- NOTE | 2020-12-09 10:39 | Discharge Summary ---
Date of Service December 09, 2020 Admission HPI Per Admitting Provider This is an 80yo F with a PMH of RA on chronic prednisone, COPD, PVD, seizure disorder and other medical problems listed below who presents with increasing dizziness over the past few days. Patient is a poor historian due to altered mental status. Endorses that the room is spinning and she has a headache. Thinks she has been falling at home but is not sure. Endorses living alone. Denies any chest pain, palpitations, shortness of breath or abdominal pain. Alert and oriented to self but not to place or time. Required to assist to ambulate to restroom during interview and was very unsteady. Admitted multiple times over the past few years for dizziness/lightheadedness that is usually improved with IV hydration. Has poor nutrition and has been seen by the dietitian before. Also seen by psychiatry on previous admission as well-felt there may be underlying eating disorder contributing. History of seizure disorder on Keppra. Denies any seizure in the past 5 years. Last admission was in September 2020 when she was found to have Covid pneumonia. Was discharged home at that time with services. Was able to get in touch with EARNEST King who states that since last hospital stay, patient has been doing better. Lives alone with home health and family helping. Was seen last evening to be A&O x 3 and at baseline watching TV. Was confused this morning and fell down, hitting her head. Also seemed a lot less steady on her feet. Son helps with medications. Brought to ED due to worsening condition and did not feel safe to leave her at home alone. Confirmed CODE STATUS as a DNR with family. Admission Exam Per Admitting Provider General Appearance: vitals as above, NAD, appears uncomfortable, agitated, cachectic, Head: normocephalic, atraumatic Eyes: + Blind R eye, PERRL, conjunctivae normal, anicteric sclerae ENT: external ear and nose normal, oropharynx normal Neck: normal visual inspection, trachea midline, no thyromegaly Respiratory: normal respiratory effort, lungs clear to auscultation, no wheeze, rales, rhonchi. No accessory muscle use Cardiovascular: regular rate, rhythm, no murmur, normal peripheral pulses, no BLE edema. Vessels: no JVD Chest: normal inspection of chest Abdomen/GI: normal bowel sounds, soft, nontender, no hepatosplenomegaly Extremities/Musculoskeletal: no cyanosis or clubbing, extremities motor strength 5/5. + Gait abnormality Neurologic: PERRL, EOMI, accommodation nl, no face palsy, no dysarthria, CN's II-XI intact bilaterally and moves all extremities Psychiatric: A+Ox person but not to place, time or situation, difficulty following conversation or responding appropriately to questions Skin: no rashes, normal color, warm/dry Principal Diagnosis dizziness orthostatic hypotension ambulatory dysfunction Discharge Exam General- frail, elderly female, laying in bed, in no acute distress Head- atraumatic Eyes- EOMI ENT- oropharynx clear Neck- supple, no JVD Lungs- clear to auscultation b/l Heart- regular rhythm; no murmur Abdomen- normal bowel sounds, soft, nontender Extremities- no calf tenderness Neuro- alert, oriented x 3;, EOMI; no facial palsy; no dysarthria, moves extremities Skin- warm & dry Discharge Data Allergies Allergy/AdvReac Type Severity Reaction Status Date / Time pollen extracts Allergy Mild SEASONAL-ITCHY Verified 10/15/20 22:21 EYES,RUNNY NOSE Consultations 12/03/20 12:44 ED Decision to Admit Stat 12/03/20 17:19 Consult Case Management - Discharge Planning Routine Ordered Studies 12/03/20 11:20 CT cervical spine wo con Stat IMPRESSION: No evidence of acute fracture or traumatic subluxation. CT head/brain wo con Stat IMPRESSION: No acute intracranial findings Hospital Course (1) Dizziness: Had previous admission for dizziness that resolved after IV hydration CT head with no acute intracranial findings No focal neuro deficit on exam Positive orthosthatics on admission Received IVF Continue PT/OT Dizziness resolved Fall precautions waiting for placement (2) COPD (chronic obstructive pulmonary disease): Continue Spiriva, albuterol PRN, prednisone Stable (3) Seizure disorder: No recent seizures. Continue Keppra (4) Rheumatoid arthritis: Continue prednisone, tylenol PRN Continue Oxycodone 2.5 mg Pt received about 200 tablets of oxycodone this month with last script on 11/24 for 120 tablets, but her UDS negative Tried to call son to address that, but he was not available Follow up with rheumatology (5) Anemia of chronic disease: Hgb stable at 9-10 (6) Restless leg syndrome: Continue Ropinirole Total Time Total Time Spent Total Time Spent (In Minutes): 35 Total Time Includes: Examination of the Patient, Discharge Planning and Medication Reconciliation Discharge Plan Discharge Items Patient Disposition: Transfer Detention Fac Reason For Visit: DIZZINESS Discharge Diagnosis: dizziness orthostatic hypotension ambulatory dysfunction Activity: Per Instructions section Non-emergency contact: Primary Care Provider Call non-emergency contact if: you have any medication questions and your symptoms worsen Follow-up/Referrals: Zakia Galvez DO [Primary Care Provider] - Diet: Regular Addtl Attending Provider Instructions: Follow up with primary care doctor within 1-2 weeks. Make sure to eat well/ healthy foods and drink plenty of fluids. Pending Studies at Discharge: No Stand-Alone Forms: [facility] Skilled Items Patient informed of condition?: Yes DNR: Yes Discharge Level of Care: Skilled Communicable Disease: No Discharge Prognosis: Stable Lines: None Urinary Catheter: No Medications and DC Order Prescriptions: New acetaminophen 325 mg Tablet 650 mg PO Q4H PRN (Reason: pain) Qty: 10 RF: 0 oxycodone 5 mg Tablet 2.5 mg PO Q8H PRN (Reason: pain (scale score 7-10)) Qty: 10 RF: 0 polyethylene glycol 3350 [Miralax] 17 gram Powder In Packet 17 g PO DAILY PRN (Reason: constipation) Qty: 14 RF: 0 lidocaine 5 % Adhesive Patch,Medicated 1 patch transdermal QAM Qty: 15 RF: 0 meclizine 12.5 mg Tablet 12.5 mg PO TID PRN (Reason: dizziness) Qty: 10 RF: 0 sodium chloride [Saline Mist] 0.65 % Aerosol,[place]bell 2 spray NA Q4 PRN (Reason: dry nasal passages) Qty: 15 RF: 0 Continued atorvastatin 20 mg tablet 20 mg PO HS RF: 0 prednisone 5 mg tablet 5 mg PO DAILY RF: 0 ropinirole 0.25 mg tablet 0.25 mg PO HS RF: 0 Spiriva Respimat 1.25 mcg/actuation mist 1 inh INHALATION DAILY RF: 0 levetiracetam 250 mg tablet 250 mg PO Q12H RF: 0 famotidine 20 mg tablet 20 mg PO DAILY RF: 0 amitriptyline 25 mg tablet 25 mg PO HS RF: 0 baclofen 10 mg tablet 10 mg PO TID PRN (Reason: Muscle Spasm) RF: 0 Changed oxycodone 5 mg tablet 2.5 mg PO Q6H PRN (Reason: Pain) Qty: 0 RF: 0 Discharge Orders: Discharge Order (Routine); Ordered 12/09/20 Ordered By: Gabe Wang Admission Data Admit Date/Time: 12/04/20 22:36 Attending Provider: Gabe Wang Admit Provider: Sydnie Rayo Primary Care Provider: Zakia Galvez Other Providers: Sydnie Rayo ; Yuri Douglass ; Belen, ; Marcelo Glover
== END 2020-12-09 15:05 | DRG 312 ==
LOC: ED 10:48 → 2W 10:48 → SUATTDRO 12-04 22:36

== ENCOUNTER 2021-03-13 18:01 | Inpatient (IN) ==
[2021-03-13] MEDS ORDERED: PIPERACILL/TAZOBAC CONSULT ACTIVE PRN (18:12)
[2021-03-13] MEDS ORDERED: PIPERACILLIN/TAZOBACTAM 4.5 GM/120 ML BAG IV ONE (18:12)
--- NOTE | 2021-03-13 18:17 | Emergency Department Note ---
Impression & Plan Acute alteration in mental status, Anemia, Bilateral cellulitis of lower leg, Lower limb ulcer, Pneumonia due to 2019 novel coronavirus ED Provider Note NAME: CLIFFORD MCADAMS AGE: 80 SEX: F : 1940 ARRIVES VIA: Ambulance INFORMANT: Patient, director revenue ED PROVIDER(S): Elvin Silva DO CHIEF COMPLAINT: Altered mental status HPI: The patient is an 80-year-old female who presented to the emergency department with ambulance for an evaluation of altered mental status. The patient was visited by her son today who had not seen her in a short period of time but she was found to be altered in her mental status. The patient did not appear to have pain. She became combative with the son so he called 911 and the patient was evaluated by the prehospital personnel. She was brought to the emergency department by the prehospital personnel. She was noted to have erythema to both lower extremities. She has ulcerations to both lower extremities as well. She does have a history of chronic steroid use and has a history of rheumatoid arthritis. The patient also has a history of COPD. The patient herself does not offer complaints. The patient denies having any chest pain. She does have a cough but denies any difficulty breathing. She does have a history of having 1 Covid vaccination. She has no fever this been reported. She has had no nausea or vomiting. There is no reported fall. ROS: See above HPI for pertinent positives & negatives. A total of 10 systems reviewed and were otherwise negative. PAST MEDICAL HISTORY: See Below PAST SURGICAL HISTORY: See Below FAMILY HISTORY: See Below SOCIAL HISTORY: See Below HOME MEDICATIONS: See Below ALLERGIES: See Below VITALS: See Below PHYSICAL EXAMINATION: GENERAL: The patient is listless but then becomes somewhat combative whenever she is stimulated. She does respond to her name. EYES: The right cornea is clouded and appears chronic. The left pupil is constricted. The patient appears to be looking around the room. EARS, NOSE, MOUTH AND THROAT: The nose is without any evidence of any deformity. Mucous membranes are dry. NECK: The neck is nontender and supple. RESPIRATORY: Shallow respirations were noted. Scattered rhonchi were noted throughout. CARDIOVASCULAR: Regular rate and rhythm was noted to auscultation. Systolic murmur was suggested. GASTROINTESTINAL: The abdomen is soft. Abdomen is nontender. MUSCULOSKELETAL/EXTREMITIES: There is no evidence of gross deformity full range of motion is noted in the hips and shoulders. SKIN: Skin is warm and dry. There is pedal edema bilaterally. There is erythema to both lower extremities. There are skin ulcerations to both lower extremities including the anterior shins. NEUROLOGIC: Patient appears to be moving all extremities well. There was no facial droop appreciated. Patient answers to her name but I am unable to assess orientation at this time. MEDICAL DECISION MAKING: The patient is a an 80-year-old female who presented to the emergency department by ambulance with altered mental status. The patient was found to have signs of pneumonia on chest x-ray. She also has signs of lower extremity ulceration. The patient is obtunded. She was treated with IV fluids and IV antibiotics in the emergency department. She was reevaluated multiple times. She was found to have anemia. The patient did not have a significant increase in her overall condition. [facility] have agreed to evaluate the patient in the emergency department for further management and disposition. She was Covid positive despite receiving 1 dose of the Covid vaccine. Triage Nursing notes reviewed. Prior medical records reviewed Vital Signs: reviewed and remarkable for bradycardia. Differential diagnosis: Infection, hypoglycemia, electrolyte abnormalities, overdose, toxicologic, cardiac sources, intracerebral event, neurologic, trauma, as well as other pathologies. ER treatment provided: See below Diagnostics interpreted by me: ECG: EKG was obtained in the emergency department. My interpretation is normal sinus rhythm at 60 bpm. There was no ectopy. Poor R wave progression was noted. This was compared to a tracing from December 24, 2020. No significant changes were noted. Cardiac Monitoring: An order was placed for continuous cardiac monitoring. The monitor shows a rate of 65 bpm with sinus rhythm. Laboratory studies: As stated above and show below. Imaging studies: See below Consultation(s): 2049: I discussed this case with Dr. Coleman who [facility] He is agreed to evaluate the patient in the emergency department for further management and disposition. Past Med/Surg History Medical History Allergic rhinitis Anemia of chronic disease Anxiety Blind right eye COPD (chronic obstructive pulmonary disease) COVID-23 Sep 2020 DNR (do not resuscitate) Hip fracture Restless leg syndrome Rheumatoid arthritis Seizure disorder Surgical History Status post appendectomy Status post cataract extraction Status post exploratory laparotomy "x3 for adhesions" Status post hysterectomy Status post ovarian cystectomy Status post tonsillectomy Status post tubal ligation Family History Brother Cancer Brother Diabetes Sister Diabetes Sister Heart disease Sister Stroke Mother Heart disease Other Family history non-contributory Social History Smoking Status: Current every day smoker Tobacco Type: Cigarettes Cigarettes Per Day: 2; Number of Years Since Quit: 29; Second Hand Exposure: Yes; Preferred Language: Croatian Communication Ability: Impaired Visual Impairment: Blindness Axle Bearing Polisher Required: No Beliefs That Will Affect Care: None marital status: / Current Living Situation: Alone and Family Current Living Situation Comment: in apartment Feels Safe at Home: Yes Assistive Devices: Glasses and Walker Allergies Allergies Allergy/AdvReac Type Severity Reaction Status Date / Time pollen extracts Allergy Mild SEASONAL-ITCHY Verified 03/13/21 19:19 EYES,RUNNY NOSE Home Meds Home Medications Medication Instructions Recorded Confirmed atorvastatin 20 mg PO HS 07/13/18 03/13/21 prednisone 5 mg PO DAILY 07/13/18 03/13/21 ropinirole 0.25 mg PO HS 07/13/18 03/13/21 levetiracetam 250 mg PO Q12H 09/24/20 03/13/21 amitriptyline 25 mg PO HS 10/15/20 03/13/21 famotidine 20 mg PO QAM 10/15/20 03/13/21 baclofen 10 mg PO TID 12/03/20 03/13/21 Spiriva Respimat 1 puff INHALATION DAILY 12/24/20 03/13/21 docusate sodium [Stool Softener] 100 mg PO BID 03/13/21 03/13/21 [id number]-[id number]-[id number] 1 tab PO DAILY 03/13/21 03/13/21 [Cerovite Senior] Previous Rx's Medication Instructions Recorded polyethylene glycol 3350 [Miralax] 17 g PO DAILY PRN #14 ea 12/09/20 sodium chloride [Saline Mist] 2 spray NA Q4 PRN #15 ml 12/09/20 oxycodone 2.5 mg PO BID PRN #10 tab 01/05/21 Results & Data (ED) Vital Signs Vital Signs - 24 hr 03/13/21 18:13 03/13/21 19:00 03/13/21 19:23 Temperature 36.4 C L Temperature Source Oral Pulse Rate 70 Pulse Rate [Bilateral Apical] 62 59 L Respiratory Rate 24 20 20 Blood Pressure 168/74 H Blood Pressure [Left Arm] 165/74 H 176/64 H Blood Pressure Mean 105 Blood Pressure Mean [Left Arm] 104 101 Pulse Oximetry 94 100 Oxygen Delivery Method Room Air Nasal Cannula Oxygen Flow Rate 2 Sepsis Recent Fever Within 48 Hours No Sepsis New/Unexplained Change in Mental Status No Sepsis Action Taken by Nursing No Action Required 03/13/21 19:26 03/13/21 20:01 Temperature Temperature Source Pulse Rate Pulse Rate [Bilateral Apical] 59 L Respiratory Rate 22 Blood Pressure Blood Pressure [Left Arm] 142/54 H Blood Pressure Mean Blood Pressure Mean [Left Arm] 83 Pulse Oximetry 100 100 Oxygen Delivery Method Nasal Cannula Nasal Cannula Oxygen Flow Rate 2 2 Sepsis Recent Fever Within 48 Hours Sepsis New/Unexplained Change in Mental Status Sepsis Action Taken by Residential Medications Current Medication List: was personally reviewed by me Laboratory Data Attestation: I reviewed the patient's lab results. Result diagrams: 03/13/21 19:30 03/13/21 19:30 Lab Results 03/13/21 03/13/21 03/13/21 Range/Units 18:33 18:33 18:33 WBC (4.8-10.8) K/uL RBC (4.2-5.4) M/uL Hgb (12.0-16.0) g/dL Hct (37-47) % MCV (80-100) fL MCH (25-34) pg MCHC (32-36) g/dL RDW Std Deviation (36.4-46.3) fL RDW Coeff of Mandeep (11.5-14.5) % Plt Count (130-400) K/uL MPV (7.4-10.4) fL Immature Gran % (Auto) % Neut % (Auto) % Lymph % (Auto) % [place] % (Auto) % Eos % (Auto) % Baso % (Auto) % Neut # (Auto) (1.4-6.5) K/uL Lymph # (Auto) (1.2-3.4) K/uL [place] # (Auto) (0.11-0.59) K/uL Eos # (Auto) (0-0.5) K/uL Baso # (Auto) (0-0.2) K/uL Immature Gran # (Auto) (0.00-0.02) K/uL PT (9.0-12.0) Seconds INR (0.9-1.1) APTT (21.0-31.0) Seconds PTT Ratio Sodium (136-145) mmol/L Potassium (3.5-5.1) mmol/L Chloride (98-107) mmol/L Carbon Dioxide (21-32) mmol/L Anion Gap (3-11) BUN (7-18) mg/dl Creatinine (0.6-1.2) mg/dl Est Cr Clr Drug Dosing ml/min Est GFR ( Amer) Est GFR (Non-Af Amer) BUN/Creatinine Ratio (10-20) Glucose (70-99) mg/dl Lactate (0.4-2.0) mmol/L Calcium (8.5-10.1) mg/dl Magnesium (1.8-2.4) mg/dl Total Bilirubin (0.2-1) mg/dl AST (15-37) U/L ALT (12-78) U/L Alkaline Phosphatase (45-117) U/L Total Creatine Kinase (26-192) U/L CK-MB (CK-2) (0.5-3.6) ng/ml CK/CKMB % Calc (0-3.0) Troponin I (0-0.045) ng/ml Total Protein (6.4-8.2) gm/dl Albumin (3.4-5.0) gm/dl Globulin (2.5-4.0) gm/dl Albumin/Globulin Ratio (0.9-2) Procalcitonin (0-0.5) ng/ml Urine Color Dark Yellow Urine Appearance Clear (Clear) Urine pH 5.0 (4.5-7.5) Ur Specific [place] 1.011 (1.000-1.030) Urine Protein Negative (Negative) Urine Glucose (UA) Negative (Negative) Urine Ketones Trace H (Negative) Urine Blood Negative (Negative) Urine Nitrite Negative (Negative) Urine Bilirubin Negative (Negative) Urine Urobilinogen Negative (Negative) Ur Leukocyte Esterase Negative (Negative) COVID-19 Eval Order CovFluRsv at [facility] SARS-CoV-2 (PCR) POSITIVE A* (Negative) Influenza Type A (PCR) Negative (Neg) Influenza Type B (PCR) Negative (Neg) RSV (RT-PCR) Negative (Neg) 03/13/21 03/13/21 03/13/21 Range/Units 19:30 19:30 19:30 WBC 8.32 (4.8-10.8) K/uL RBC 2.61 L (4.2-5.4) M/uL Hgb 8.6 L (12.0-16.0) g/dL Hct 26.2 L (37-47) % MCV 100.4 H (80-100) fL MCH 33.0 (25-34) pg MCHC 32.8 (32-36) g/dL RDW Std Deviation 67.3 H (36.4-46.3) fL RDW Coeff of Mandeep 18.3 H (11.5-14.5) % Plt Count 185 (130-400) K/uL MPV 8.4 (7.4-10.4) fL Immature Gran % (Auto) 0.2 % Neut % (Auto) 83.6 % Lymph % (Auto) 6.5 % [place] % (Auto) 6.4 % Eos % (Auto) 3.2 % Baso % (Auto) 0.1 % Neut # (Auto) 6.95 H (1.4-6.5) K/uL Lymph # (Auto) 0.54 L (1.2-3.4) K/uL [place] # (Auto) 0.53 (0.11-0.59) K/uL Eos # (Auto) 0.27 (0-0.5) K/uL Baso # (Auto) 0.01 (0-0.2) K/uL Immature Gran # (Auto) 0.02 (0.00-0.02) K/uL PT 10.7 (9.0-12.0) Seconds INR 1.1 (0.9-1.1) APTT 26.7 (21.0-31.0) Seconds PTT Ratio 1.0 Sodium 140 (136-145) mmol/L Potassium 3.7 (3.5-5.1) mmol/L Chloride 107 (98-107) mmol/L Carbon Dioxide 25 (21-32) mmol/L Anion Gap 9.0 (3-11) BUN 23 H (7-18) mg/dl Creatinine 0.93 (0.6-1.2) mg/dl Est Cr Clr Drug Dosing 30.3 ml/min Est GFR ( Amer) 66.8 Est GFR (Non-Af Amer) 57.6 BUN/Creatinine Ratio 24.3 H (10-20) Glucose 102 H (70-99) mg/dl Lactate (0.4-2.0) mmol/L Calcium 9.1 (8.5-10.1) mg/dl Magnesium 3.0 H (1.8-2.4) mg/dl Total Bilirubin 1.6 H (0.2-1) mg/dl AST 15 (15-37) U/L ALT 7 L (12-78) U/L Alkaline Phosphatase 172 H (45-117) U/L Total Creatine Kinase 53 (26-192) U/L CK-MB (CK-2) 1.9 (0.5-3.6) ng/ml CK/CKMB % Calc 3.6 H (0-3.0) Troponin I < 0.015 (0-0.045) ng/ml Total Protein 6.7 (6.4-8.2) gm/dl Albumin 3.0 L (3.4-5.0) gm/dl Globulin 3.7 (2.5-4.0) gm/dl Albumin/Globulin Ratio 0.8 L (0.9-2) Procalcitonin (0-0.5) ng/ml Urine Color Urine Appearance (Clear) Urine pH (4.5-7.5) Ur Specific [place] (1.000-1.030) Urine Protein (Negative) Urine Glucose (UA) (Negative) Urine Ketones (Negative) Urine Blood (Negative) Urine Nitrite (Negative) Urine Bilirubin (Negative) Urine Urobilinogen (Negative) Ur Leukocyte Esterase (Negative) COVID-19 Eval Order SARS-CoV-2 (PCR) (Negative) Influenza Type A (PCR) (Neg) Influenza Type B (PCR) (Neg) RSV (RT-PCR) (Neg) 03/13/21 03/13/21 Range/Units 19:30 19:30 WBC (4.8-10.8) K/uL RBC (4.2-5.4) M/uL Hgb (12.0-16.0) g/dL Hct (37-47) % MCV (80-100) fL MCH (25-34) pg MCHC (32-36) g/dL RDW Std Deviation (36.4-46.3) fL RDW Coeff of Mandeep (11.5-14.5) % Plt Count (130-400) K/uL MPV (7.4-10.4) fL Immature Gran % (Auto) % Neut % (Auto) % Lymph % (Auto) % [place] % (Auto) % Eos % (Auto) % Baso % (Auto) % Neut # (Auto) (1.4-6.5) K/uL Lymph # (Auto) (1.2-3.4) K/uL [place] # (Auto) (0.11-0.59) K/uL Eos # (Auto) (0-0.5) K/uL Baso # (Auto) (0-0.2) K/uL Immature Gran # (Auto) (0.00-0.02) K/uL PT (9.0-12.0) Seconds INR (0.9-1.1) APTT (21.0-31.0) Seconds PTT Ratio Sodium (136-145) mmol/L Potassium (3.5-5.1) mmol/L Chloride (98-107) mmol/L Carbon Dioxide (21-32) mmol/L Anion Gap (3-11) BUN (7-18) mg/dl Creatinine (0.6-1.2) mg/dl Est Cr Clr Drug Dosing ml/min Est GFR ( Amer) Est GFR (Non-Af Amer) BUN/Creatinine Ratio (10-20) Glucose (70-99) mg/dl Lactate 0.6 (0.4-2.0) mmol/L Calcium (8.5-10.1) mg/dl Magnesium (1.8-2.4) mg/dl Total Bilirubin (0.2-1) mg/dl AST (15-37) U/L ALT (12-78) U/L Alkaline Phosphatase (45-117) U/L Total Creatine Kinase (26-192) U/L CK-MB (CK-2) (0.5-3.6) ng/ml CK/CKMB % Calc (0-3.0) Troponin I (0-0.045) ng/ml Total Protein (6.4-8.2) gm/dl Albumin (3.4-5.0) gm/dl Globulin (2.5-4.0) gm/dl Albumin/Globulin Ratio (0.9-2) Procalcitonin < 0.05 (0-0.5) ng/ml Urine Color Urine Appearance (Clear) Urine pH (4.5-7.5) Ur Specific [place] (1.000-1.030) Urine Protein (Negative) Urine Glucose (UA) (Negative) Urine Ketones (Negative) Urine Blood (Negative) Urine Nitrite (Negative) Urine Bilirubin (Negative) Urine Urobilinogen (Negative) Ur Leukocyte Esterase (Negative) COVID-19 Eval Order SARS-CoV-2 (PCR) (Negative) Influenza Type A (PCR) (Neg) Influenza Type B (PCR) (Neg) RSV (RT-PCR) (Neg) Administered Medications Discontinued Medications Piperacillin Sod/Tazobactam Sod (Zosyn) 4.5 gm in 120 mls @ 240 mls/hr IV NOW ONE Stop: 03/13/21 18:41 Last Admin: 03/13/21 19:55 Dose: 240 mls/hr Documented by: [id number] Imaging Data Radiologist's Impression: Chest X-Ray 03/13/21 18:10 SINGLE VIEW CHEST CLINICAL HISTORY: Sepsis. FINDINGS: An AP, portable, upright chest radiograph is compared to study dated 12/31/2020. The heart is enlarged noting atherosclerotic calcification of the thoracic aorta. The pulmonary vasculature is noncongested. Advanced emphysema and chronic interstitial thickening is similar to previous. Patchy airspace consolidation is present at both lung bases, left greater than right. No large pleural effusion or pneumothorax is seen. The skeletal structures are osteopenic. The bony thorax is grossly intact. Advanced arthritic change is seen in the shoulders. IMPRESSION: 1. Cardiomegaly and emphysema. 2. Patchy airspace consolidation is present at both lung bases, typical in appearance for pneumonia/aspiration pneumonitis. Clinical correlation will be required and radiographic follow-up to resolution is recommended. ACT 112: Negative or not required by law. Electronically signed by: Zeb Noble M.D. 03/13/2021 7:[address] 03/13/21 18:10 CT SCAN OF THE BRAIN WITHOUT IV CONTRAST CLINICAL HISTORY: Change in mental status. COMPARISON STUDY: CT of the brain dated 12/24/2020. TECHNIQUE: Unenhanced axial CT scan of the brain is performed from the vertex to the skull base. A dose lowering technique was utilized adhering to the principles of ALARA. CT DOSE: 537.48 mGy.cm FINDINGS: Brain parenchyma: There are age-related involutional changes noting moderate lopez bcortical and periventricular microangiopathic change. There is no hemorrhage, mass effect, or evidence of acute territorial ischemia by CT criteria. Colon- white matter differentiation is preserved. No extra-axial fluid collection is seen. Ventricles, sulci, cisterns: Prominent secondary to involutional change. Intracranial vasculature: There is atherosclerotic calcification of the cavernous carotid and vertebral arteries. Calvarium: Unremarkable. Sinuses and mastoids: The paranasal sinuses are clear. The mastoid air cells are well pneumatized. Orbits: The bony orbits are grossly intact. There are bilateral ocular lens implants. Posteriorly displaced left lens is unchanged from previous. Soft tissues: Calcified sialoliths are noted in the left parotid gland. IMPRESSION: There is no hemorrhage, mass effect, or evidence of acute territorial ischemia by CT criteria. ACT 112: Negative or not required by law. Electronically signed by: Zeb Noble M.D. 03/13/2021 7:30 PM Discharge Plan Visit Data Chief Complaint: Confusion Stated Complaint: AMS ED Provider: Elvin Silva Discharge Problem: Acute alteration in mental status, Anemia, Bilateral cellulitis of lower leg, Lower limb ulcer, Pneumonia due to 2019 novel coronavirus Patient Disposition: Being Evaluated by Hospitalist Condition: Good Forms Stand Alone Forms: My [facility] Prescriptions Prescriptions: No Action Spiriva Respimat 2.5 mcg/actuation mist 1 puff INHALATION DAILY RF: 0 oxycodone 5 mg tablet 2.5 mg PO BID PRN (Reason: Severe Pain (Scale Score 7-10)) Qty: 10 RF: 0 atorvastatin 20 mg tablet 20 mg PO HS RF: 0 prednisone 5 mg tablet 5 mg PO DAILY RF: 0 ropinirole 0.25 mg tablet 0.25 mg PO HS RF: 0 levetiracetam 250 mg tablet 250 mg PO Q12H RF: 0 famotidine 20 mg tablet 20 mg PO QAM RF: 0 amitriptyline 25 mg tablet 25 mg PO HS RF: 0 baclofen 10 mg tablet 10 mg PO TID RF: 0 polyethylene glycol 3350 [Miralax] 17 gram Powder In Packet 17 g PO DAILY PRN (Reason: constipation) Qty: 14 RF: 0 sodium chloride [Saline Mist] 0.65 % Aerosol,[place] 2 spray NA Q4 PRN (Reason: dry nasal passages) Qty: 15 RF: 0 docusate sodium [Stool Softener] 100 mg capsule 100 mg PO BID RF: 0 Cerovite Senior Tablet 1 tab PO DAILY RF: 0 Referrals Referrals: Zakia Galvez DO [Primary Care Provider] - Discharge Problem: Anemia Qualifiers: Anemia type: unspecified type Qualified Code(s): D64.9 - Anemia, unspecified Lower limb ulcer Qualifiers: Laterality: unspecified laterality Non-pressure ulcer stage: unspecified non- pressure ulcer stage Qualified Code(s): L97.909 - Non-pressure chronic ulcer of unspecified part of unspecified lower leg with unspecified severity
[2021-03-13 18:50] LABS: Appearance Urine Clear (Clear); Bilirubin Urine Negative (Negative); Blood Urine Negative (Negative); Color Urine Dark Yellow; Glucose Urine UA Negative (Negative); Ketones Urine Trace (Negative); Leukocyte Esterase Urine Negative (Negative); Nitrite Urine Negative (Negative); Protein Urine Negative (Negative); Specific Gravity Urine 1.011 (1.000-1.030); Urobilinogen Urine Negative (Negative)
--- NOTE | 2021-03-13 19:09 | XRay Report ---
SINGLE VIEW CHEST CLINICAL HISTORY: Sepsis. FINDINGS: An AP, portable, upright chest radiograph is compared to study dated 12/31/2020. The heart i s enlarged noting atherosclerotic calcification of the thoracic aorta. The pulmonary vasculature is n oncongested. Advanced emphysema and chronic interstitial thickening is similar to previous. Patchy ai rspace consolidation is present at both lung bases, left greater than right. No large pleural effusio n or pneumothorax is seen. The skeletal structures are osteopenic. The bony thorax is grossly intact. Advanced arthritic change is seen in the shoulders. IMPRESSION: 1. Cardiomegaly and emphysema. 2. Patchy airspace consolidation is present at both lung bases, typical in appearance for pneumonia/a spiration pneumonitis. Clinical correlation will be required and radiographic follow-up to resolution is recommended. ACT 112: Negative or not required by law. Electronically signed by: Zeb Noble M.D. 03/13/2021 7:08 PM
--- NOTE | 2021-03-13 19:31 | CT Scan Report ---
CT SCAN OF THE BRAIN WITHOUT IV CONTRAST CLINICAL HISTORY: Change in mental status. COMPARISON STUDY: CT of the brain dated 12/24/2020. TECHNIQUE: Unenhanced axial CT scan of the brain is performed from the vertex to the skull base. A do se lowering technique was utilized adhering to the principles of ALARA. CT DOSE: 537.48 mGy.cm FINDINGS: Brain parenchyma: There are age-related involutional changes noting moderate subcortical and periven tricular microangiopathic change. There is no hemorrhage, mass effect, or evidence of acute territori al ischemia by CT criteria. Colon-white matter differentiation is preserved. No extra-axial fluid juana ection is seen. Ventricles, sulci, cisterns: Prominent secondary to involutional change. Intracranial vasculature: There is atherosclerotic calcification of the cavernous carotid and vertebr al arteries. Calvarium: Unremarkable. Sinuses and mastoids: The paranasal sinuses are clear. The mastoid air cells are well pneumatized. Orbits: The bony orbits are grossly intact. There are bilateral ocular lens implants. Posteriorly dis placed left lens is unchanged from previous. Soft tissues: Calcified sialoliths are noted in the left parotid gland. IMPRESSION: There is no hemorrhage, mass effect, or evidence of acute territorial ischemia by CT js armendariz. ACT 112: Negative or not required by law. Electronically signed by: Zeb Noble M.D. 03/13/2021 7:30 PM
[2021-03-13 19:36] LABS: Influenza A virus by PCR Negative (Neg); Influenza B virus by PCR Negative (Neg); RSV by PCR Negative (Neg)
[2021-03-13 19:41] LABS: SARS CoV2 RNA(COVID-19) InHosp POSITIVE (Negative)
[2021-03-13 19:42] LABS: Basophils # (auto) 0.01 K/uL (0-0.2); Basophils % (auto) 0.1 %; Eosinophils # (auto) 0.27 K/uL (0-0.5); Eosinophils % (auto) 3.2 %; Hematocrit (blood only) 26.2 % (37-47); Hemoglobin 8.6 g/dL (12.0-16.0); Immature Granulocytes # (auto) 0.02 K/uL (0.00-0.02); Immature Granulocytes % (auto) 0.2 %; Lymphocytes # (auto) 0.54 K/uL (1.2-3.4); Lymphocytes % (auto) 6.5 %; Mean Corpuscular Hgb Conc 32.8 g/dL (32-36); Mean Corpuscular Volume 100.4 fL (80-100); Mean Platelet Volume 8.4 fL (7.4-10.4); Monocytes # (auto) 0.53 K/uL (0.11-0.59); Monocytes % (auto) 6.4 %; Neutrophils # (auto) 6.95 K/uL (1.4-6.5); Neutrophils % (auto) 83.6 %; Platelet Count 185 K/uL (130-400); RDW Coefficient of Variation 18.3 % (11.5-14.5); RDW Standard Deviation 67.3 fL (36.4-46.3); Red Blood Count 2.61 M/uL (4.2-5.4); White Blood Count 8.32 K/uL (4.8-10.8)
[2021-03-13 19:55] LABS: INR 1.1 (0.9-1.1); Partial Thromboplastin Time 26.7 Seconds (21.0-31.0); Prothrombin Time 10.7 Seconds (9.0-12.0)
[2021-03-13 20:02] LABS: Alanine Aminotransferase 7 U/L (12-78); Aspartate Aminotransferase 15 U/L (15-37); BUN Creatinine Ratio 24.3 (10-20); Blood Urea Nitrogen 23 mg/dl (7-18); Calcium 9.1 mg/dl (8.5-10.1); Carbon Dioxide 25 mmol/L (21-32); Chloride 107 mmol/L (98-107); Creatinine Clr Calc Pharmacy 30.3 ml/min; Est GFR (African American) 66.8; Est GFR (Non-African American) 57.6; Glucose 102 mg/dl (70-99); Potassium 3.7 mmol/L (3.5-5.1); Sodium 140 mmol/L (136-145)
[2021-03-13 20:07] LABS: Albumin Globulin Ratio 0.8 (0.9-2); Alkaline Phosphatase 172 U/L (45-117); Bilirubin,Total 1.6 mg/dl (0.2-1); Globulin 3.7 gm/dl (2.5-4.0); Total Protein 6.7 gm/dl (6.4-8.2); Troponin I < 0.015 ng/ml (0-0.045)
[2021-03-13 20:18] LABS: Creatine Kinase 53 U/L (26-192); Creatine Kinase MB 1.9 ng/ml (0.5-3.6)
[2021-03-13] MEDS ORDERED: SODIUM CHLORIDE 0.9% 1000ML 1,000 ML IV ONE (21:03)
[2021-03-13] MEDS ORDERED: LACTATED RINGER'S 1,000 ML IV STA (21:12)
[2021-03-13] MEDS ORDERED: fentaNYL citrate 100 MCG/2 ML VIAL IV STA (21:55)
[2021-03-13] MEDS ORDERED: hydrALAZINE HCL 20 MG/ML VIAL IV STA (22:21)
[2021-03-13] MEDS ORDERED: ACETAMINOPHEN 1000 MG/100 ML IV IV ONE (22:47)
--- NOTE | 2021-03-13 22:50 | History & Physical Report ---
Date of Service March 13, 2021 Assessment & Plan (1) Encephalopathy: Multifactorial : Acute hypoxemic respiratory failure secondary to severe COVID-19 pneumonia given hypoxemia, possible aspiration pneumonia, Known aspiration risk (no sepsis for now, immunocompromised patient given history rheumatoid arthritis on chronic steroid therapy) Intolerable headache possibly from uncontrolled HTN secondary to viral illness Home narcotics, baclofen, neuropsychotropic meds contributory Infected leg ulcers Situational hypertension secondary to discomfort Likely chronic BP elevation given cardiomegaly on prior imaging seizure disorder, on Keppra Acute on chronic anemia, hemoglobin drop from baseline secondary to occult GI bleed documented during prior confinements Malnutrition (low BMI) Functional disability Ongoing tobacco abuse Medical telemetry Supplemental O2 Baseline ABG Decadron course, Remdesivir for severe COVID-19 pneumonia (Patient sister counseled regarding potential adverse effects from Remdesivir therapy. Patient sister also agreeable to convalescent plasma if warranted. Verbal consent obtained for blood product administration.) Zosyn for possible aspiration pneumonia MDI RTC Swallow eval, aspiration precautions Doxycycline, Zosyn for infected leg ulcers Wound care nurse consultation Hold home narcotics, baclofen, ropinirole until patient mentation at baseline Initiate amlodipine for blood pressure control Follow H&H, transfuse PRBC if hemoglobin less than 8 and or for symptomatic anemia (hx CAD/PVD as per records) Nutrition consult already low BMI PT OT eval Nicotine patch PRN DVT prophylaxis. SCDs RE occult GI bleed DNR as per patient prior wishes as per sister, Ms. Cindy Salinas (contact #[phone]). Patient son, Tremaine Stover, currently unreachable at listed numbers ([phone]). Text document was generated using [employer] voice recognition software. It may contain grammatical or spelling errors. Kindly contact undersigned for clarification of any documentation item in question. History of Present Illness Chief Complaint: Headache as per patient Altered mental status, leg ulcerations as per records Primary Care Provider: Zakia Galvez DO Chief Complaint: Weakness, cough, shortness of breath Primary Care Provider: Zakia Galvez DO History obtained from patient, family, and records. Unable to obtain history from patient secondary disoriented state. Medical history significant for COPD, ongoing tobacco abuse, CAD/PVD as per records, hyperlipidemia, seizure disorder, rheumatoid arthritis on chronic steroid therapy, chronic anemia (baseline hemoglobin of 9-10), restless legs syndrome, aspiration risk as per records. Recent confinement January 2021 for encephalopathy, aspiration pneumonitis, and anemia. Stool Hemoccult noted to be positive. Outpatient endoscopy recommended by GI. Last week, patient complained of head spinning, back and knee pain, to home health provider. Patient sleeping more as per caregiver. Today, patient noted to be confused and agitated. Both legs with ulcerations and swelling. Patient noted to be coughing. Patient complaining of achy headache. At the ER, patient given Zosyn for aspiration pneumonia on x-ray. O2 sats noted to be 90s on 2 L at some point at the ER. MEDICAL HISTORY: As above. SURGERIES: Appendectomy, cataract surgery, exploratory laparotomy, hysterectomy, gynecologic procedures, tonsillectomy, hip fracture surgery FAMILY HISTORY: Diabetes. Heart disease, stroke PERSONAL AND SOCIAL HISTORY: 6 cigarettes daily. No chronic intake of alcohol. 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 Lives alone. Allergies Allergy/AdvReac Type Severity Reaction Status Date / Time pollen extracts Allergy Mild SEASONAL-ITCHY Verified 03/13/21 19:19 EYES,RUNNY NOSE Home Medications Medication Instructions Recorded Confirmed Type atorvastatin 20 mg PO HS 07/13/18 03/13/21 History prednisone 5 mg PO DAILY 07/13/18 03/13/21 History ropinirole 0.25 mg PO HS 07/13/18 03/13/21 History levetiracetam 250 mg PO Q12H 09/24/20 03/13/21 History amitriptyline 25 mg PO HS 10/15/20 03/13/21 History famotidine 20 mg PO QAM 10/15/20 03/13/21 History baclofen 10 mg PO TID 12/03/20 03/13/21 History polyethylene glycol 3350 [Miralax] 17 g PO DAILY PRN #14 ea 12/09/20 03/13/21 Rx sodium chloride [Saline Mist] 2 spray NA Q4 PRN #15 ml 12/09/20 03/13/21 Rx Spiriva Respimat 1 puff INHALATION DAILY 12/24/20 03/13/21 History oxycodone 2.5 mg PO BID PRN #10 tab 01/05/21 03/13/21 Rx docusate sodium [Stool Softener] 100 mg PO BID 03/13/21 03/13/21 History [id number] 1 tab PO DAILY 03/13/21 03/13/21 History [Cerovite Senior] Past Med/Surg History Medical History Allergic rhinitis Anemia of chronic disease Anxiety Blind right eye COPD (chronic obstructive pulmonary disease) COVID-23 Sep 2020 DNR (do not resuscitate) Hip fracture Restless leg syndrome Rheumatoid arthritis Seizure disorder Surgical History Status post appendectomy Status post cataract extraction Status post exploratory laparotomy "x3 for adhesions" Status post hysterectomy Status post ovarian cystectomy Status post tonsillectomy Status post tubal ligation Family History Brother Cancer Brother Diabetes Sister Diabetes Sister Heart disease Sister Stroke Mother Heart disease Other Family history non-contributory Social History Smoking Status: Unknown if ever smoked Tobacco Type: Cigarettes Cigarettes Per Day: 2; Number of Years Since Quit: 29; Second Hand Exposure: Yes; Preferred Language: Divehi Communication Ability: Impaired Visual Impairment: Blindness Fitness Teacher Required: No Beliefs That Will Affect Care: None marital status: / Current Living Situation: Personal Care Facility Current Living Situation Comment: [facility] Feels Safe at Home: Yes Assistive Devices: None Review of Systems Review of Systems: Could not be reliably obtained Physical Exam Physical Exam: GENERAL: uncomfortable, disoriented , underweight, hard of hearing, no respiratory distress SKIN: Pallor , warm HEENT: Pale palpebral conjunctivae, no ptosis, dry buccal mucosa, nasal cannula in place NECK : Supple, no tenderness CHEST : Decreased breath sounds, no tenderness HEART : RRR, no obvious murmurs ABDOMEN: Some distention, nontender EXTREMITIES : Minimal LE swelling with ulcers, minimal LE tenderness, no other conspicuous deformities noted NEUROLOGIC : Disoriented, hard of hearing, no facial asymmetry, gait and stance not assessed Results & Data Results & Data ([facility]) Vital Signs (Past 12 Hours) Vital Signs Temp Pulse Pulse Resp BP BP Pulse Ox 03/13/21 22:41 63 20 130/51 L 90 03/13/21 21:53 62 20 184/83 H 100 03/13/21 21:00 58 L 20 132/63 100 03/13/21 20:01 59 L 22 142/54 H 100 03/13/21 19:26 100 03/13/21 19:23 59 L 20 176/64 H 100 03/13/21 19:00 62 20 165/74 H 03/13/21 18:13 36.4 C L 70 24 168/74 H 94 Laboratory Results Laboratory Results WBC 8.32 K/uL (4.8-10.8) 03/13/21 19:30 RBC 2.61 M/uL (4.2-5.4) L 03/13/21 19:30 Hgb 8.6 g/dL (12.0-16.0) L 03/13/21 19:30 Hct 26.2 % (37-47) L 03/13/21 19:30 MCV 100.4 fL (80-100) H 03/13/21 19:30 MCH 33.0 pg (25-34) 03/13/21 19:30 MCHC 32.8 g/dL (32-36) 03/13/21 19:30 RDW Std Deviation 67.3 fL (36.4-46.3) H 03/13/21 19:30 RDW Coeff of Mandeep 18.3 % (11.5-14.5) H 03/13/21 19:30 Plt Count 185 K/uL (130-400) 03/13/21 19:30 MPV 8.4 fL (7.4-10.4) 03/13/21 19:30 Immature Gran % (Auto) 0.2 % 03/13/21 19:30 Neut % (Auto) 83.6 % 03/13/21 19:30 Lymph % (Auto) 6.5 % 03/13/21 19:30 [place] % (Auto) 6.4 % 03/13/21 19:30 Eos % (Auto) 3.2 % 03/13/21 19:30 Baso % (Auto) 0.1 % 03/13/21 19:30 Neut # (Auto) 6.95 K/uL (1.4-6.5) H 03/13/21 19:30 Lymph # (Auto) 0.54 K/uL (1.2-3.4) L 03/13/21 19:30 [place] # (Auto) 0.53 K/uL (0.11-0.59) 03/13/21 19:30 Eos # (Auto) 0.27 K/uL (0-0.5) 03/13/21 19:30 Baso # (Auto) 0.01 K/uL (0-0.2) 03/13/21 19:30 Immature Gran # (Auto) 0.02 K/uL (0.00-0.02) 03/13/21 19:30 PT 10.7 Seconds (9.0-12.0) 03/13/21 19:30 INR 1.1 (0.9-1.1) 03/13/21 19:30 APTT 26.7 Seconds (21.0-31.0) 03/13/21 19:30 PTT Ratio 1.0 03/13/21 19:30 Sodium 140 mmol/L (136-145) 03/13/21 19:30 Potassium 3.7 mmol/L (3.5-5.1) 03/13/21 19:30 Chloride 107 mmol/L (98-107) 03/13/21 19:30 Carbon Dioxide 25 mmol/L (21-32) 03/13/21 19:30 Anion Gap 9.0 (3-11) 03/13/21 19:30 BUN 23 mg/dl (7-18) H 03/13/21 19:30 Creatinine 0.93 mg/dl (0.6-1.2) 03/13/21 19:30 Est Cr Clr Drug Dosing 30.3 ml/min 03/13/21 19:30 Est GFR ( Amer) 66.8 03/13/21 19:30 Est GFR (Non-Af Amer) 57.6 03/13/21 19:30 BUN/Creatinine Ratio 24.3 (10-20) H 03/13/21 19:30 Glucose 102 mg/dl (70-99) H 03/13/21 19:30 Lactate 0.6 mmol/L (0.4-2.0) 03/13/21 19:30 Calcium 9.1 mg/dl (8.5-10.1) 03/13/21 19:30 Magnesium 3.0 mg/dl (1.8-2.4) H 03/13/21 19:30 Total Bilirubin 1.6 mg/dl (0.2-1) H 03/13/21 19:30 AST 15 U/L (15-37) 03/13/21 19:30 ALT 7 U/L (12-78) L 03/13/21 19:30 Alkaline Phosphatase 172 U/L (45-117) H 03/13/21 19: Total Creatine Kinase 53 U/L (26-192) 03/13/21 19:30 CK-MB (CK-2) 1.9 ng/ml (0.5-3.6) 03/13/21: CK/CKMB % Calc 3.6 (0-3.0) H 03/13/21: Troponin I < 0.015 ng/ml (0-0.045) 03/13/21: Total Protein 6.7 gm/dl (6.4-8.2) 03/13/21: Albumin 3.0 gm/dl (3.4-5.0) L 03/13/21 19: Globulin 3.7 gm/dl (2.5-4.0) 03/13/21: Albumin/Globulin Ratio 0.8 (0.9-2) L 03/13/21: Procalcitonin < 0.05 ng/ml (0-0.5) 03/13/21 19: TSH 1.430 uIu/ml (0.300-4.500) 03/13/21 19: Urine Color Dark Yellow 03/13/21 18: Urine Appearance Clear (Clear) 03/13/21 18: Urine pH 5.0 (4.5-7.5) 03/13/21 18: Ur Specific [place] 1.011 (1.000-1.030) 03/13/21 18: Urine Protein Negative (Negative) 03/13/21 18: Urine Glucose (UA) Negative (Negative) 03/13/21 18: Urine Ketones Trace (Negative) H 03/13/21 18:33 Urine Blood Negative (Negative) 03/13/21 18: Urine Nitrite Negative (Negative) 03/13/21 18:33 Urine Bilirubin Negative (Negative) 03/13/21 18:33 Urine Urobilinogen Negative (Negative) 03/13/21 18:33 Ur Leukocyte Esterase Negative (Negative) 03/13/21 18:33 COVID-19 Eval Order CovFluRsv at [facility] 03/13/21 18:33 SARS-CoV-2 (PCR) POSITIVE (Negative) A* 03/13/21 18:33 Influenza Type A (PCR) Negative (Neg) 03/13/21 18:33 Influenza Type B (PCR) Negative (Neg) 03/13/21 18:33 RSV (RT-PCR) Negative (Neg) 03/13/21 18:33 Impressions Chest X-Ray 03/13/21 18:10 SINGLE VIEW CHEST CLINICAL HISTORY: Sepsis. FINDINGS: An AP, portable, upright chest radiograph is compared to study dated 12/31/2020. The heart is enlarged noting atherosclerotic calcification of the thoracic aorta. The pulmonary vasculature is noncongested. Advanced emphysema and chronic interstitial thickening is similar to previous. Patchy airspace consolidation is present at both lung bases, left greater than right. No large pleural effusion or pneumothorax is seen. The skeletal structures are osteopenic. The bony thorax is grossly intact. Advanced arthritic change is seen in the shoulders. IMPRESSION: 1. Cardiomegaly and emphysema. 2. Patchy airspace consolidation is present at both lung bases, typical in appearance for pneumonia/aspiration pneumonitis. Clinical correlation will be required and radiographic follow-up to resolution is recommended. ACT 112: Negative or not required by law. Electronically signed by: Zeb Noble M.D. 03/13/2021 7:[address] 03/13/21 18:10 CT SCAN OF THE BRAIN WITHOUT IV CONTRAST CLINICAL HISTORY: Change in mental status. COMPARISON STUDY: CT of the brain dated 12/24/2020. TECHNIQUE: Unenhanced axial CT scan of the brain is performed from the vertex to the skull base. A dose lowering technique was utilized adhering to the principles of ALARA. CT DOSE: 537.48 mGy.cm FINDINGS: Brain parenchyma: There are age-related involutional changes noting moderate subcortical and periventricular microangiopathic change. There is no hemorrhage, mass effect, or evidence of acute territorial ischemia by CT criteria. Colon- white matter differentiation is preserved. No extra-axial fluid collection is seen. Ventricles, sulci, cisterns: Prominent secondary to involutional change. Intracranial vasculature: There is atherosclerotic calcification of the cavernous carotid and vertebral arteries. Calvarium: Unremarkable. Sinuses and mastoids: The paranasal sinuses are clear. The mastoid air cells are well pneumatized. Orbits: The bony orbits are grossly intact. There are bilateral ocular lens implants. Posteriorly displaced left lens is unchanged from previous. Soft tissues: Calcified sialoliths are noted in the left parotid gland. IMPRESSION: There is no hemorrhage, mass effect, or evidence of acute territorial ischemia by CT criteria. ACT 112: Negative or not required by law. Electronically signed by: Zeb Noble M.D. 03/13/2021 7:30 PM Diagnostic Findings EKG as per my interpretation rate 60, NSR, LAD, LAFB, septal infarct
[2021-03-13] MEDS ORDERED: DEXAMETHASONE SOD INJ 4 MG/ML VIAL IV STA (22:51)
[2021-03-13] MEDS ORDERED: ACETAMINOPHEN 65 ML IV STA (22:52)
[2021-03-13 23:40] LABS: Hematocrit (blood only) 24.5 % (37-47); Hemoglobin 8.3 g/dL (12.0-16.0)
[2021-03-13 23:49] LABS: Base Excess ABG -0.5 mEq/L (-9-1.8); HCO3 ABG 24 mmol/L (19-24); Oxygen Saturation ABG 96.5 % (90-95); PCO2 ABG 38 mmHg (35-46); PO2 ABG 83 mmHg (80-95); pH ABG 7.42 (7.35-7.45)
[2021-03-13 23:50] LABS: Allen Test POS (Pos)
[2021-03-14] MEDS ORDERED: PROMETHAZINE HCL 6.25 MG in SODIUM CHLORIDE 0.9% 50 ML IV PRN (00:21)
[2021-03-14] MEDS ORDERED: OLANZapine 10 MG/2.1 ML SDV IM PRN (00:21)
[2021-03-14] MEDS ORDERED: POLYETHYLENE (MIRALAX) 17 GM PACK PO PRN (00:21)
[2021-03-14] MEDS ORDERED: ALBUTEROL HFA 8 GM INHALER INH ONE (00:30)
[2021-03-14] MEDS ORDERED: REMDESIVIR 200 MG in SODIUM CHLORIDE 0.9% 210 ML IV ONE (01:00)
[2021-03-14] MEDS ORDERED: SODIUM CHLORIDE 0.9% 10ML FLUSH IV SCH (01:00)
[2021-03-14] MEDS: ACETAMINOPHEN 325 MG TAB PO PRN (05:05)
[2021-03-14] MEDS ORDERED: PIPERACILLIN/TAZOBACTAM 3.375 GM in DEXTROSE 5% 100 ML IV ONE (06:00)
[2021-03-14] MEDS ORDERED: HEPARIN SOD 5,000 UNIT/0.5 ML VIAL SQ SCH (06:00)
[2021-03-14 06:10] LABS: Lyme Ab IgG w/WB Rflx Negative (Negative); Lyme Ab IgM w/WB Rflx Negative (Negative)
[2021-03-14] MEDS ORDERED: DOXYCYCLINE HYCLATE 100 MG in DEXTROSE 5% 100 ML IV ONE (06:30)
[2021-03-14 06:41] LABS: Basophils # (auto) 0.01 K/uL (0-0.2); Basophils % (auto) 0.1 %; Hematocrit (blood only) 26.6 % (37-47); Hemoglobin 8.4 g/dL (12.0-16.0); Immature Granulocytes # (auto) 0.02 K/uL (0.00-0.02); Immature Granulocytes % (auto) 0.3 %; Lymphocytes % (auto) 3.8 %; Mean Corpuscular Hemoglobin 33.3 pg (25-34); Mean Corpuscular Hgb Conc 31.6 g/dL (32-36); Mean Corpuscular Volume 105.6 fL (80-100); Mean Platelet Volume 8.7 fL (7.4-10.4); Monocytes # (auto) 0.05 K/uL (0.11-0.59); Monocytes % (auto) 0.6 %; Neutrophils # (auto) 7.42 K/uL (1.4-6.5); Neutrophils % (auto) 95.2 %; Platelet Count 224 K/uL (130-400); RDW Coefficient of Variation 18.2 % (11.5-14.5); RDW Standard Deviation 69.6 fL (36.4-46.3); Red Blood Count 2.52 M/uL (4.2-5.4)
[2021-03-14] MEDS ORDERED: ALBUTEROL HFA 8 GM INHALER INH SCH (07:00)
[2021-03-14 07:02] LABS: Amphetamines+Metham, Urine Neg (Neg); Barbiturates, Urine Neg (Neg); Benzodiazepine, Urine Neg (Neg); Cocaine, Urine Neg (Neg); MDMA (Ecstacy), Urine Neg (Neg); Methadone, Urine Neg (Neg); Opiate, Urine Neg (Neg); Phencyclidine, Urine Neg (Neg)
[2021-03-14 07:13] LABS: Albumin Level 2.8 gm/dl (3.4-5.0); Calcium 8.2 mg/dl (8.5-10.1); Creatinine Clr Calc Pharmacy 30.4 ml/min; Est GFR (African American) 73.4; Est GFR (Non-African American) 63.4; Magnesium 2.7 mg/dl (1.8-2.4); Potassium 4.2 mmol/L (3.5-5.1)
[2021-03-14 07:34] LABS: Albumin Globulin Ratio 0.7 (0.9-2); Bilirubin,Total 1.1 mg/dl (0.2-1); Globulin 3.9 gm/dl (2.5-4.0); Total Protein 6.7 gm/dl (6.4-8.2)
[2021-03-14] MEDS: amLODIPine BESYLATE 5 MG TAB PO SCH (07:49)
[2021-03-14] MEDS: DOCUSATE SODIUM 100 MG CAP PO SCH ×2 (07:52→20:14)
[2021-03-14] MEDS: dexAMETHasone 6 MG in SYRINGE 0 ML IV SCH (07:52)
[2021-03-14] MEDS: FAMOTIDINE 20 MG TAB PO SCH (07:53)
[2021-03-14] MEDS: levETIRAcetam 250 MG TAB PO SCH ×2 (07:53→20:14)
[2021-03-14] MEDS: CEROVITE ADV FORMULA TAB PO SCH (07:54)
[2021-03-14] MEDS: UMECLIDINIUM BROMIDE 62.5MCG/BLISTER 7 PUFFS/INHALER INH SCH (07:54)
[2021-03-14] MEDS ORDERED: AMOXICILLIN/CLAVULANATE 875 MG TAB PO SCH (08:00)
[2021-03-14] MEDS ORDERED: PIPERACILL/TAZOBAC CONSULT ACTIVE PRN (09:00)
[2021-03-14] MEDS ORDERED: AUGMENTIN~PHARMACY CONSULT IN PROGRESS PRN (09:00)
[2021-03-14] MEDS ORDERED: ALBUTEROL HFA 8 GM INHALER INH PRN (09:32)
[2021-03-14] MEDS: HYDROmorphone INJ 0.5 MG/0.5 ML SYR IV PRN ×3 (09:40→23:57)
[2021-03-14] MEDS ORDERED: VANCOMYCIN CONSULT ACTIVE PRN (11:39)
[2021-03-14] MEDS ORDERED: ONDANSETRON INJ 2 MG/ML 2 ML VIAL IV PRN (12:27)
[2021-03-14] MEDS ORDERED: ONDANSETRON INJ 2 MG/ML 2 ML VIAL ONE (12:33)
[2021-03-14] MEDS: PIPERACILLIN/TAZOBACTAM 3.375 GM in DEXTROSE 5% 100 ML IV SCH ×2 (12:39→20:13)
[2021-03-14] MEDS ORDERED: VANCOMYCIN HCL 1,000 MG/270 ML BAG IV ONE (13:00)
--- NOTE | 2021-03-14 13:29 | Hospitalist Progress Note ---
Date of Service March 14, 2021 Assessment & Plan (1) Encephalopathy: Multifactorial : Acute hypoxemic respiratory failure secondary to severe COVID-19 pneumonia given hypoxemia, possible aspiration pneumonia, Known aspiration risk No sepsis for now, immunocompromised patient given history rheumatoid arthritis on chronic steroid therapy Intolerable headache possibly from uncontrolled HTN secondary to viral illness Home narcotics, baclofen, neuropsychotropic meds contributory Infected leg ulcers Remains alert and awake with generalized weakness Covid 19 infection Pneumonia likely secondary to Covid/superinfection with bacteria Has been receiving intravenous Decadron and received 2 doses of remdesivir so far Initial oxygen saturation was low and required 2 L of nasal cannula oxygen Saturating normally on room air since admission We will consider discontinuing remdesivir given the side effect profile Has been getting intravenous doxycycline and Zosyn Vancomycin was added with positive blood culture with gram-positive cocci in cluster We will check MRSA profile COPD No significant exacerbation Complicated by COVID-19 infection We will continue nebs as needed and other medications as before Nicotine patch PRN Abdominal discomfort with nausea and vomiting Could be secondary to infection/antibiotics Has been getting Zosyn with some improvement Situational hypertension secondary to discomfort Likely chronic BP elevation given cardiomegaly on prior imaging Blood pressure was noted to be high Seems to be improving with current medication seizure disorder, on Keppra Acute on chronic anemia, hemoglobin drop from baseline secondary to occult GI bleed documented during prior confinements Malnutrition (low BMI) Functional disability Ongoing tobacco abuse Leg Ulcrs Doxycycline, Zosyn for infected leg ulcers Wound care nurse consultation Hold home narcotics, baclofen, ropinirole until patient mentation at baseline Nutrition consult already low BMI PT OT eval DVT prophylaxis. SCDs RE occult GI bleed DNR as per patient prior wishes as per sister, Ms. Cindy Salinas (contact #[phone]). Patient son, Tremaine Stover, currently unreachable at listed numbers ([phone]). Admission and Anticipated Discharge Date Admission Date: March 13, 2021 Subjective 03/14/2021 The patient was seen and examined in telemetry and Covid unit She has been complaining of abdominal discomfort and nausea and she vomited once in front of me She also has mild to moderate shortness of breath at rest Denies any significant pain Review of Systems Review of Systems: All systems reviewed and are unremarkable except as noted below Constitutional: + fatigue and + weakness Respiratory: + cough and + dyspnea (Minimal dyspnea at rest) Gastrointestinal: + bloating, + nausea and + vomiting Physical Exam Physical Exam: Lying in bed with acute distress secondary to abdominal pain and nausea Constitutional: + acute distress, + ill appearing and + thin Eyes: PERRL, conjunctivae normal, anicteric sclerae ENMT: external ear and nose normal, oropharynx normal Neck: trachea midline, no thyromegaly Respiratory: + respiratory distress (Minimal distress at rest) Auscultation: + diminished lung sounds and + crackles (Bibasilar crackles) Cardiovascular: Rate/Rhythm: regular rate and regular rhythm Heart Sounds: no murmur Extremities: + edema (Trace edema bilaterally) Gastrointestinal (Abdomen): Inspection/Auscultation: normal bowel sounds; abdomen not distended Percussion/Palpation: + abdomen tender (Mildly tender in the epigastrium) Musculoskeletal: No acute arthritis in any joint Neurologic: Alert and awake. Generally weak and lethargic Lymphatic: no cervical or axillary lymphadenopathy Results & Data Results & Data ([facility]) Vital Signs (Past 12 Hours) Vital Signs Temp Pulse Pulse Resp BP Pulse Ox 03/14/21 07:23 68 18 96 03/14/21 07:00 36.5 C 78 19 153/68 H 95 03/14/21 04:00 36.5 C 76 18 127/53 L 98 Laboratory Results Short CBC 03/13/21 03/13/21 03/14/21 Range/Units 19:30 23:27 06:12 WBC 8.32 7.80 (4.8-10.8) K/uL Hgb 8.6 L 8.3 L 8.4 L (12.0-16.0) g/dL Hct 26.2 L 24.5 L 26.6 L (37-47) % Plt Count 185 224 (130-400) K/uL BMP 03/13/21 03/14/21 19:30 06:12 Sodium 140 142 Potassium 3.7 4.2 Chloride 107 110 H Carbon Dioxide 25 26 BUN 23 H 22 H Creatinine 0.93 0.86 Glucose 102 H 135 H Calcium 9.1 8.2 L Cardiac Enzymes 03/13/21 Range/Units 19:30 Total Creatine Kinase 53 (26-192) U/L CK-MB (CK-2) 1.9 (0.5-3.6) ng/ml Troponin I < 0.015 (0-0.045) ng/ml Liver Function 03/13/21 03/14/21 Range/Units 19:30 06:12 Total Bilirubin 1.6 H 1.1 H (0.2-1) mg/dl AST 15 15 (15-37) U/L ALT 7 L 9 L (12-78) U/L Alkaline Phosphatase 172 H 160 H (45-117) U/L Albumin 3.0 L 2.8 L (3.4-5.0) gm/dl Urine 03/13/21 Range/Units 18:33 Urine Color Dark Yellow Urine Appearance Clear (Clear) Urine pH 5.0 (4.5-7.5) Ur Specific [place] 1.011 (1.000-1.030) Urine Protein Negative (Negative) Urine Glucose (UA) Negative (Negative) Medications Administered Current Inpatient Medications Acetaminophen (Acetaminophen 325 Mg Tab) 650 mg PO Q4H PRN PRN Reason: Pain or Fever Stop: 04/13/21 00:20 Albuterol (Albuterol Hfa 8 Gm Inhaler) 2 puffs INH QIDR PRN PRN Reason: Shortness Of Breath Or Wheezing Stop: 04/13/21 06:59 Amlodipine Besylate (Amlodipine Besylate 5 Mg Tab) 2.5 mg PO QAM [facility] Stop: 04/13/21 08:59 Last Admin: 03/14/21 07:49 Dose: 2.5 mg Documented by: Atorvastatin Calcium (Atorvastatin 20 Mg Tab) 20 mg PO HS [facility] Stop: 04/13/21 20:59 Docusate Sodium (Docusate Sodium 100 Mg Cap) 100 mg PO BID [facility] Stop: 04/13/21 08:59 Last Admin: 03/14/21 07:52 Dose: 100 mg Documented by: Doxycycline Hyclate (Doxycycline Hyclate 100 Mg Cap) 100 mg PO BID@1000,2200 [facility] Stop: 03/21/21 21:59 Famotidine (Famotidine 20 Mg Tab) 20 mg PO QAM [facility] Stop: 04/13/21 08:59 Last Admin: 03/14/21 07:53 Dose: 20 mg Documented by: Hydromorphone HCl (Hydromorphone Inj 0.5 Mg/0.5 Ml Syr) 0.5 mg IV Q4H PRN PRN Reason: Pain Stop: 03/28/21 08:59 Last Admin: 03/14/21 09:40 Dose: 0.5 mg Documented by: Lactated Ringer's (Lr) 1,000 mls @ 60 mls/hr IV .[id number] STA Stop: 03/14/21 13:51 Last Admin: 03/13/21 21:29 Dose: 60 mls/hr Documented by: Dexamethasone 6 mg/ Syringe 1.5 mls @ 1 mls/min IV DAILY YOLANDA Stop: 04/13/21 08:59 Last Admin: 03/14/21 07:52 Dose: 1 mls/min Documented by: Promethazine HCl 6.25 mg/ (Sodium Chloride) 50.25 mls @ 201 mls/hr IV Q6H PRN PRN Reason: Nausea And Vomiting Stop: 04/13/21 00:20 Remdesivir 100 mg/ Sodium (Chloride) 250 mls @ 250 mls/hr IV Q24H YOLANDA; Protocol Stop: 03/18/21 12:59 Piperacillin Sod/Tazobactam (Sod 3.375 gm/ Dextrose) 115 mls @ 28.75 mls/hr IV Q8H YOLANDA; Protocol Stop: 03/21/21 11:59 Last Admin: 03/14/21 12:39 Dose: 28.8 mls/hr Documented by: Vancomycin HCl (Vancomycin Hcl) 1,000 mg in 270 mls @ 200 mls/hr IV NOW ONE; Protocol Stop: 03/14/21 14:20 Last Admin: 03/14/21 13:13 Dose: 200 mls/hr Documented by: Levetiracetam (Levetiracetam 250 Mg Tab) 250 mg PO Q12H YOLANDA Stop: 04/13/21 08:59 Last Admin: 03/14/21 07:53 Dose: 250 mg Documented by: Miscellaneous Information (Piperacill/Tazobac Consult Active) 1 ea N/A UD PRN PRN Reason: Consult Stop: 04/13/21 08:59 Miscellaneous Information (Vancomycin Consult Active) 1 ea N/A UD PRN PRN Reason: Consult Stop: 04/13/21 11:38 Multivitamins/Minerals (Cerovite Adv Formula Tab) 1 tab PO DAILY YOLANDA Stop: 04/13/21 08:59 Last Admin: 03/14/21 07:54 Dose: 1 tab Documented by: Olanzapine (Olanzapine 10 Mg/2.1 Ml Sdv) 2.5 mg IM Q4H PRN PRN Reason: anxiety/agitation Stop: 04/13/21 00:20 Ondansetron HCl (Ondansetron Inj 2 Mg/Ml 2 Ml Vial) 4 mg IV Q6H PRN PRN Reason: Nausea And Vomiting Stop: 04/13/21 12:26 Oxycodone HCl (Oxycodone Hcl Soln 5 Mg/5 Ml Udc) 2.5 mg PO Q4H PRN PRN Reason: Pain Stop: 03/28/21 08:44 Polyethylene Glycol (Polyethylene (Miralax) 17 Gm Pack) 17 gm PO DAILY PRN PRN Reason: constipation Stop: 04/13/21 00:20 Sodium Chloride (Sodium Chloride 0.9% 10ml Flush) 30 ml IV Q24H YOLANDA Stop: 03/18/21 12:01 Last Admin: 03/14/21 01:01 Dose: 30 ml Documented by: Umeclidinium [place] (Umeclidinium [place] 62.5mcg/Blister 7 Puffs/Inhaler) 1 puffs INH DAILY YOLANDA Stop: 04/13/21 08:59 Last Admin: 03/14/21 07:54 Dose: 1 puffs Documented by:
--- NOTE | 2021-03-14 14:39 | Pharmacy Report ---
Pharmacy Abx Dose Short Note - Date of Service March 14, 2021 - Assessment & Plan Assessment * 80 year old F receiving vancomycin for treatment of bacteremia. Patient also receiving piperacillin-tazobactam for possible aspiration pneumonia. * Significant PMHx includes: COPD, RA on chronic steroids, seizure disorder, tobacco abuse, chronic aspiration risk, recent COVID (09/2020); resident @ personal care facility, recent admission 12/2020. Patient has a history of VRE (urine). * Vancomycin initiated today due to 1/2 blood cultures positive for GPC in clusters. ID/sensitivities pending. Plan Vancomycin * Vanc 1gm X 1 * Further dosing dependent upon random level tomorrow. Estimated half life based on weight/renal function is ~ 24h. Based upon labs from previous admissions, expect that patient may require more frequent dosing. Pharmacy will continue to follow and will adjust dose/frequency as necessary. Thank you.
[2021-03-14] MEDS: ATORVASTATIN 20 MG TAB PO SCH (20:14)
[2021-03-14] MEDS: DOXYCYCLINE HYCLATE 100 MG CAP PO SCH (20:14)
--- NOTE | 2021-03-14 23:03 | Electrocardiogram Report ---
Test Reason : Blood Pressure : / mmHG Vent. Rate : 060 BPM Atrial Rate : 060 BPM P-R Int : 156 ms QRS Dur : 088 ms QT Int : 428 ms P-R-T Axes : 072 -18 037 degrees QTc Int : 428 ms Normal sinus rhythm Septal infarct (cited on or before 13-MAR-2021) Abnormal ECG When compared with ECG of 24-DEC-2020 20:23, Questionable change in initial forces of Anterior leads Confirmed by Bowen Duncan ([id number]) on 03/14/2021 11:03:15 PM Referred By: REFERRED SELF Confirmed By:Bowen Duncan
[2021-03-15] MEDS: PIPERACILLIN/TAZOBACTAM 3.375 GM in DEXTROSE 5% 100 ML IV SCH ×3 (04:36→20:29)
[2021-03-15 07:08] LABS: Albumin Level 2.7 gm/dl (3.4-5.0); BUN Creatinine Ratio 34.8 (10-20); Creatinine Clr Calc Pharmacy 36.2 ml/min; Est GFR (African American) 88.1; Magnesium 1.8 mg/dl (1.8-2.4); Potassium 3.9 mmol/L (3.5-5.1)
[2021-03-15 07:11] LABS: Albumin Globulin Ratio 0.8 (0.9-2); Bilirubin,Total 0.8 mg/dl (0.2-1); Globulin 3.4 gm/dl (2.5-4.0); Phosphorus 2.8 mg/dl (2.5-4.9); Total Protein 6.1 gm/dl (6.4-8.2)
[2021-03-15 07:52] LABS: Basophils # (auto) 0.01 K/uL (0-0.2); Basophils % (auto) 0.1 %; Eosinophils # (auto) 0.05 K/uL (0-0.5); Eosinophils % (auto) 0.6 %; Hematocrit (blood only) 26.1 % (37-47); Hemoglobin 8.3 g/dL (12.0-16.0); Immature Granulocytes # (auto) 0.03 K/uL (0.00-0.02); Immature Granulocytes % (auto) 0.4 %; Lymphocytes # (auto) 0.96 K/uL (1.2-3.4); Lymphocytes % (auto) 11.7 %; Mean Corpuscular Hemoglobin 33.3 pg (25-34); Mean Corpuscular Hgb Conc 31.8 g/dL (32-36); Mean Corpuscular Volume 104.8 fL (80-100); Mean Platelet Volume 8.8 fL (7.4-10.4); Monocytes # (auto) 0.44 K/uL (0.11-0.59); Monocytes % (auto) 5.4 %; Neutrophils # (auto) 6.73 K/uL (1.4-6.5); Neutrophils % (auto) 81.8 %; Platelet Count 260 K/uL (130-400); RDW Coefficient of Variation 18.2 % (11.5-14.5); RDW Standard Deviation 68.5 fL (36.4-46.3); Red Blood Count 2.49 M/uL (4.2-5.4); White Blood Count 8.22 K/uL (4.8-10.8)
[2021-03-15] MEDS: DOCUSATE SODIUM 100 MG CAP PO SCH ×2 (08:30→19:25)
[2021-03-15] MEDS: VANCOMYCIN HCL 500 MG in 0.9 % SODIUM CHLORIDE 100 ML IV SCH ×2 (08:30→19:23)
[2021-03-15] MEDS: dexAMETHasone 6 MG in SYRINGE 0 ML IV SCH (08:30)
[2021-03-15] MEDS: CEROVITE ADV FORMULA TAB PO SCH (08:31)
[2021-03-15] MEDS: amLODIPine BESYLATE 5 MG TAB PO SCH (08:31)
[2021-03-15] MEDS: UMECLIDINIUM BROMIDE 62.5MCG/BLISTER 7 PUFFS/INHALER INH SCH (08:31)
[2021-03-15] MEDS: FAMOTIDINE 20 MG TAB PO SCH (08:31)
[2021-03-15] MEDS: levETIRAcetam 250 MG TAB PO SCH ×2 (08:31→20:29)
[2021-03-15] MEDS: DOXYCYCLINE HYCLATE 100 MG CAP PO SCH ×2 (08:34→21:41)
--- NOTE | 2021-03-15 08:34 | Pharmacy Report ---
Pharmacy Abx Dose Short Note - Date of Service March 15, 2021 - Assessment & Plan Assessment 80 year old F receiving vancomycin for treatment of bacteremia. Patient also receiving piperacillin-tazobactam for possible aspiration pneumonia. * Significant PMHx includes: COPD, RA on chronic steroids, seizure disorder, tobacco abuse, chronic aspiration risk, recent COVID (09/2020); resident @ [facility] care facility, recent admission 12/2020. Patient has a history of VRE (urine). * 1 of 2 blood culture positive for Staph species. MRSA nasal (-). Renal function remains stable. * Vanc random level ordered this morning as it was expected that patient would clear drug faster than estimated kinetics. Level confirms suspicions. Plan Vancomycin * Random level - 9.3 mcg/mL * New estimated kinetic parameters: ke~ 0.088/hr, t 1/2~ 7.9hr, Vd~0.75L/kg? * Scheduled vancomycin 500mg q12h based upon calculated PK parameters * Goal trough level: 15-20mcg/mL * Trough level ordered for: 03/16 prior to AM dose. This level will not yet represent steady state, however drawing early to assess safety/efficacy of therapy. Pharmacy will continue to follow and will adjust dose/frequency as necessary. Thank you.
[2021-03-15] MEDS ORDERED: REMDESIVIR 100 MG in SODIUM CHLORIDE 0.9% 230 ML IV SCH (12:00)
--- NOTE | 2021-03-15 12:54 | Hospitalist Progress Note ---
Date of Service March 15, 2021 Assessment & Plan (1) Encephalopathy: Metabolic Encephalopathy Multifactorial : Acute hypoxemic respiratory failure secondary to severe COVID-19 pneumonia given hypoxemia, possible aspiration pneumonia, Known aspiration risk No sepsis for now, immunocompromised patient given history rheumatoid arthritis on chronic steroid therapy Intolerable headache possibly from uncontrolled HTN secondary to viral illness Home narcotics, baclofen, neuropsychotropic meds contributory Infected leg ulcers Clinically much better today and has been communicating well She has been eating and drinking denies any significant symptoms Covid 19 infection Pneumonia likely secondary to Covid/superinfection with bacteria Has been receiving intravenous Decadron and received 2 doses of remdesivir so far Initial oxygen saturation was low and required 2 L of nasal cannula oxygen Saturating normally on room air since admission We will consider discontinuing remdesivir given the side effect profile Has been getting intravenous doxycycline and Zosyn Vancomycin was added with positive blood culture with gram-positive cocci in cluster We will check MRSA profile-negative MRSA screen Still awaiting sensitivity of the blood culture The documentation of oxygen delivery was wrong previously as it was thought she was on room air following admission She requires 1 to 2 L of oxygen via nasal cannula to maintain saturation COPD No significant exacerbation Complicated by COVID-19 infection We will continue nebs as needed and other medications as before Nicotine patch PRN Abdominal discomfort with nausea and vomiting Could be secondary to infection/antibiotics Has been getting Zosyn with some improvement Symptoms have resolved after stopping remdesivir Situational hypertension secondary to discomfort Likely chronic BP elevation given cardiomegaly on prior imaging Blood pressure was noted to be high Seems to be improving with current medication seizure disorder, on Keppra Acute on chronic anemia, hemoglobin drop from baseline secondary to occult GI bleed documented during prior confinements Malnutrition (low BMI) Functional disability Ongoing tobacco abuse Leg Ulcrs Doxycycline, Zosyn for infected leg ulcers Wound care nurse consultation Hold home narcotics, baclofen, ropinirole until patient mentation at baseline Nutrition consult already low BMI PT OT eval DVT prophylaxis. SCDs RE occult GI bleed DNR as per patient prior wishes as per sister, Ms. Cindy Salinas (contact #[phone]). Patient son, Tremaine Stover, currently unreachable at listed numbers ([phone]). Admission and Anticipated Discharge Date Admission Date: March 13, 2021 Subjective 03/14/2021 The patient was seen and examined in telemetry and Covid unit She has been complaining of abdominal discomfort and nausea and she vomited once in front of me She also has mild to moderate shortness of breath at rest Denies any significant pain 03/15/2021 The patient was seen and examined in telemetry and Covid unit She is totally different person today Does not complain of any significant symptoms except some leg pain on standing Has been eating and drinking reasonably well Review of Systems Review of Systems: All systems reviewed and are unremarkable except as noted below Constitutional: + fatigue and + weakness Respiratory: + cough and + dyspnea (Minimal dyspnea at rest) Gastrointestinal: no bloating, no nausea and no vomiting Physical Exam Physical Exam: Lying in bed comfortably without any acute distress Constitutional: + ill appearing and + thin; no acute distress Eyes: PERRL, conjunctivae normal, anicteric sclerae ENMT: external ear and nose normal, oropharynx normal Neck: trachea midline, no thyromegaly Respiratory: no respiratory distress (Minimal distress at rest) Auscultation: + diminished lung sounds and + crackles (Bibasilar crackles) Cardiovascular: Rate/Rhythm: regular rate and regular rhythm Heart Sounds: no murmur Extremities: no edema (Trace edema bilaterally) Gastrointestinal (Abdomen): Inspection/Auscultation: normal bowel sounds; abdomen not distended Percussion/Palpation: + abdomen tender (Mildly tender in the epigastrium) Musculoskeletal: No acute arthritis in any joint Neurologic: Alert, awake and oriented x3. Extremely weak and lethargic but no focal motor deficit Psychiatric: A+Ox3, euthymic affect Lymphatic: no cervical or axillary lymphadenopathy Results & Data Results & Data ([facility]) Vital Signs (Past 12 Hours) Vital Signs Temp Pulse Pulse Resp BP Pulse Ox 03/15/21 11:27 36.7 C 65 17 171/72 H 99 03/15/21 07:52 36.7 C 77 16 152/80 H 97 03/15/21 07:00 76 03/15/21 03:00 36.6 C 82 20 161/64 H 100 Laboratory Results Short CBC 03/15/21 03/15/21 Range/Units 06:16 07:34 WBC Cancelled 8.22 Hgb Cancelled 8.3 L Hct Cancelled 26.1 L Plt Count Cancelled 260 BMP 03/15/21 06:16 Sodium 141 Potassium 3.9 Chloride 110 H Carbon Dioxide 24 BUN 26 H Creatinine 0.74 Glucose 87 Calcium 8.0 L Liver Function 03/15/21 Range/Units 06:16 Total Bilirubin 0.8 (0.2-1) mg/dl AST 21 (15-37) U/L ALT 11 L (12-78) U/L Alkaline Phosphatase 120 H (45-117) U/L Albumin 2.7 L (3.4-5.0) gm/dl Medications Administered Current Inpatient Medications Acetaminophen (Acetaminophen 325 Mg Tab) 650 mg PO Q4H PRN PRN Reason: Pain or Fever Stop: 04/13/21 00:20 Last Admin: 03/14/21 05:05 Dose: 650 mg Documented by: Albuterol (Albuterol Hfa 8 Gm Inhaler) 2 puffs INH QIDR PRN PRN Reason: Shortness Of Breath Or Wheezing Stop: 04/13/21 06:59 Amlodipine Besylate (Amlodipine Besylate 5 Mg Tab) 2.5 mg PO [facility] Stop: 04/13/21 08:59 Last Admin: 03/15/21 08:31 Dose: 2.5 mg Documented by: Atorvastatin Calcium (Atorvastatin 20 Mg Tab) 20 mg PO [facility] Stop: 04/13/21 20:59 Last Admin: 03/14/21 20:14 Dose: 20 mg Documented by: Docusate Sodium (Docusate Sodium 100 Mg Cap) 100 mg PO BID [facility] Stop: 04/13/21 08:59 Last Admin: 03/15/21 08:30 Dose: 100 mg Documented by: Doxycycline Hyclate (Doxycycline Hyclate 100 Mg Cap) 100 mg PO BID@1000,2200 [facility] Stop: 03/21/21 21:59 Last Admin: 03/15/21 08:34 Dose: 100 mg Documented by: Famotidine (Famotidine 20 Mg Tab) 20 mg PO QAM [facility] Stop: 04/13/21 08:59 Last Admin: 03/15/21 08:31 Dose: 20 mg Documented by: Hydromorphone HCl (Hydromorphone Inj 0.5 Mg/0.5 Ml Syr) 0.5 mg IV Q4H PRN PRN Reason: Pain Stop: 03/28/21 08:59 Last Admin: 03/14/21 23:57 Dose: 0.5 mg Documented by: Dexamethasone 6 mg/ Syringe 1.5 mls @ 1 mls/min IV DAILY [facility] Stop: 04/13/21 08:59 Last Admin: 03/15/21 08:30 Dose: 1 mls/min Documented by: Promethazine HCl 6.25 mg/ (Sodium Chloride) 50.25 mls @ 201 mls/hr IV Q6H PRN PRN Reason: Nausea And Vomiting Stop: 04/13/21 00:20 Piperacillin Sod/Tazobactam (Sod 3.375 gm/ Dextrose) 115 mls @ 28.75 mls/hr IV Q8H [facility]; Protocol Stop: 03/21/21 11:59 Last Admin: 03/15/21 12:12 Dose: 28.8 mls/hr Documented by: Vancomycin HCl 500 mg/ Sodium (Chloride) 110 mls @ 125 mls/hr IV Q12H [facility]; Protocol Stop: 03/29/21 07:59 Last Infusion: 03/15/21 09:32 Dose: Infused Documented by: Levetiracetam (Levetiracetam 250 Mg Tab) 250 mg PO Q12H [facility] Stop: 04/13/21 08:59 Last Admin: 03/15/21 08:31 Dose: 250 mg Documented by: Miscellaneous Information (Piperacill/Tazobac Consult Active) 1 ea N/A UD PRN PRN Reason: Consult Stop: 04/13/21 08:59 Miscellaneous Information (Vancomycin Consult Active) 1 ea N/A UD PRN PRN Reason: Consult Stop: 04/13/21 11:38 Multivitamins/Minerals (Cerovite Adv Formula Tab) 1 tab PO DAILY [facility] Stop: 04/13/21 08:59 Last Admin: 03/15/21 08:31 Dose: 1 tab Documented by: Olanzapine (Olanzapine 10 Mg/2.1 Ml Sdv) 2.5 mg IM Q4H PRN PRN Reason: anxiety/agitation Stop: 04/13/21 00:20 Ondansetron HCl (Ondansetron Inj 2 Mg/Ml 2 Ml Vial) 4 mg IV Q6H PRN PRN Reason: Nausea And Vomiting Stop: 04/13/21 12:26 Oxycodone HCl (Oxycodone Hcl Soln 5 Mg/5 Ml Udc) 2.5 mg PO Q4H PRN PRN Reason: Pain Stop: 03/28/21 08:44 Polyethylene Glycol (Polyethylene (Miralax) 17 Gm Pack) 17 gm PO DAILY PRN PRN Reason: constipation Stop: 04/13/21 00:20 Umeclidinium [place] (Umeclidinium [place] 62.5mcg/Blister 7 Puffs/Inhaler) 1 puffs INH DAILY [facility] Stop: 04/13/21 08:59 Last Admin: 03/15/21 08:31 Dose: 1 puffs Documented by:
[2021-03-15] MEDS ORDERED: amLODIPine BESYLATE 5 MG TAB PO ONE (13:21)
[2021-03-15] MEDS: oxyCODONE HCL SOLN 5 MG/5 ML UDC PO PRN (14:51)
[2021-03-15] MEDS: ATORVASTATIN 20 MG TAB PO SCH (20:29)
[2021-03-16] MEDS: HYDROmorphone INJ 0.5 MG/0.5 ML SYR IV PRN ×2 (03:49→17:07)
[2021-03-16] MEDS: PIPERACILLIN/TAZOBACTAM 3.375 GM in DEXTROSE 5% 100 ML IV SCH ×2 (06:01→12:46)
[2021-03-16] MEDS ORDERED: VANCOMYCIN TROUGH ONE (07:30)
[2021-03-16] MEDS: dexAMETHasone 6 MG in SYRINGE 0 ML IV SCH (08:17)
[2021-03-16] MEDS: amLODIPine BESYLATE 5 MG TAB PO SCH (08:17)
[2021-03-16] MEDS: CEROVITE ADV FORMULA TAB PO SCH (08:18)
[2021-03-16] MEDS: levETIRAcetam 250 MG TAB PO SCH ×2 (08:18→21:50)
[2021-03-16] MEDS: UMECLIDINIUM BROMIDE 62.5MCG/BLISTER 7 PUFFS/INHALER INH SCH (08:21)
[2021-03-16] MEDS: DOCUSATE SODIUM 100 MG CAP PO SCH ×2 (08:29→21:54)
[2021-03-16 08:31] LABS: Creatinine Clr Calc Pharmacy 37.5 ml/min; Est GFR (African American) 95.1
[2021-03-16] MEDS: FAMOTIDINE 20 MG TAB PO SCH (10:00)
[2021-03-16] MEDS: VANCOMYCIN HCL 500 MG in 0.9 % SODIUM CHLORIDE 100 ML IV SCH (10:01)
--- NOTE | 2021-03-16 10:32 | Pharmacy Report ---
Pharmacy Abx Dose Short Note - Date of Service March 16, 2021 - Assessment & Plan Assessment 80 year old F receiving Vancomycin and Zosyn for treatment of bacteremia/leg ulcers, possible pulm source. Blood culture growing MRSA in 1 anaerobic blood culture. I did contact lab and ask the sample be repeated via turbidity method to confirm if the true JAYDE for vanc. Trough level a little below goal today, however as previously mentioned, level was prior to steady state and I anticipate level will fall into goal range for both trough and AUC when at steady state. Will repeat a trough level tomorrow morning to assess. Day # 3 of antimicrobial therapy. Plan Vancomycin * Trough level of 11.9 mcg/mL is slightly subtherapeutic prior to steady state * Continue dose of 500 mg IV every 12 hours * Goal trough level : 15 to 20 mcg/mL * Trough or random level ordered for: 03/17/21 @5475 Pharmacy will continue to follow and will adjust dose/frequency as necessary. Thank you.
[2021-03-16] MEDS: DOXYCYCLINE HYCLATE 100 MG CAP PO SCH ×2 (10:44→21:51)
[2021-03-16] MEDS: oxyCODONE HCL SOLN 5 MG/5 ML UDC PO PRN ×2 (12:46→21:51)
--- NOTE | 2021-03-16 14:15 | Hospitalist Progress Note ---
Date of Service March 16, 2021 Assessment & Plan (1) Encephalopathy: Metabolic Encephalopathy Multifactorial : Acute hypoxemic respiratory failure secondary to severe COVID-19 pneumonia given hypoxemia, possible aspiration pneumonia, Known aspiration risk No sepsis for now, immunocompromised patient given history rheumatoid arthritis on chronic steroid therapy Intolerable headache possibly from uncontrolled HTN secondary to viral illness Home narcotics, baclofen, neuropsychotropic meds contributory Infected leg ulcers Clinically much better today and has been communicating well She has been eating and drinking denies any significant symptoms She is back to her baseline with symptoms and wants to go home Covid 19 infection Pneumonia likely secondary to Covid/superinfection with bacteria Has been receiving intravenous Decadron and received 2 doses of remdesivir so far Initial oxygen saturation was low and required 2 L of nasal cannula oxygen Saturating normally on room air since admission We will consider discontinuing remdesivir given the side effect profile Has been getting intravenous doxycycline and Zosyn She is saturating at more than 94% on room air Like to be discharged in a day or 2 MRSA bacteria in 1 out of 2 bottles Vancomycin was added with positive blood culture with gram-positive cocci in cluster We will check MRSA profile-negative MRSA screen MRSA sensitive to Vanco, Dapto and Bactrim Will discontinue intravenous Zosyn Will need to be PICC line if she goes home on IV Dapto Some moderate protein calorie malnutrition BMI of 16.3 kg/m Nutritional support COPD No significant exacerbation Complicated by COVID-19 infection We will continue nebs as needed and other medications as before Nicotine patch PRN Abdominal discomfort with nausea and vomiting Could be secondary to infection/antibiotics Has been getting Zosyn with some improvement Symptoms have resolved after stopping remdesivir Situational hypertension secondary to discomfort Likely chronic BP elevation given cardiomegaly on prior imaging Blood pressure was noted to be high Seems to be improving with current medication seizure disorder, on Keppra Acute on chronic anemia, hemoglobin drop from baseline secondary to occult GI bleed documented during prior confinements Malnutrition (low BMI) Functional disability Ongoing tobacco abuse Leg Ulcrs Doxycycline, Zosyn for infected leg ulcers Wound care nurse consultation Hold home narcotics, baclofen, ropinirole until patient mentation at baseline Nutrition consult already low BMI PT OT eval DVT prophylaxis. SCDs RE occult GI bleed DNR as per patient prior wishes as per sister, Ms. [place] (contact #[phone]). Patient son, Tremaine Stover, currently unreachable at listed numbers ([phone]). She wants to go home and does not want to go to rehab as recommended by the physical therapist Likely discharge in a day or 2 Admission and Anticipated Discharge Date Admission Date: March 13, 2021 Subjective 03/14/2021 The patient was seen and examined in telemetry and Covid unit She has been complaining of abdominal discomfort and nausea and she vomited once in front of me She also has mild to moderate shortness of breath at rest Denies any significant pain 03/15/2021 The patient was seen and examined in telemetry and Covid unit She is totally different person today Does not complain of any significant symptoms except some leg pain on standing Has been eating and drinking reasonably well 03/16/2021 The patient was seen and examined in telemetry and Covid unit She has been feeling a lot better and saturating normally on room air She has been getting PT and OT evaluation and going to the bathroom by herself She denies any other significant symptoms and definitely wants to go home Review of Systems Review of Systems: All systems reviewed and are unremarkable except as noted below Constitutional: + fatigue and + weakness Respiratory: no cough and no dyspnea (Minimal dyspnea at rest) Physical Exam Physical Exam: Lying in bed comfortably without any acute distress Constitutional: + ill appearing and + thin; no acute distress Eyes: PERRL, conjunctivae normal, anicteric sclerae ENMT: external ear and nose normal, oropharynx normal Neck: trachea midline, no thyromegaly Respiratory: no respiratory distress (Minimal distress at rest) Auscultation: + diminished lung sounds and + crackles (Bibasilar crackles) Cardiovascular: Rate/Rhythm: regular rate and regular rhythm Heart Sounds: no murmur Extremities: no edema (Trace edema bilaterally) Gastrointestinal (Abdomen): Inspection/Auscultation: normal bowel sounds; abd omen not distended Percussion/Palpation: + abdomen tender (Mildly tender in the epigastrium) Musculoskeletal: No acute arthritis in any joint Neurologic: Alert, awake and oriented x3. Generally weak but no focal neuro deficit Psychiatric: A+Ox3, euthymic affect Lymphatic: no cervical or axillary lymphadenopathy Results & Data Results & Data ([facility]) Vital Signs (Past 12 Hours) Vital Signs Temp Pulse Pulse Resp BP Pulse Ox 05/12/21 11:45 36.7 C 80 18 155/70 H 94 03/16/21 08:00 88 03/16/21 07:56 36.9 C 92 H 19 131/60 91 03/16/21 03:37 36.3 C L 94 H 20 147/92 H 93
[2021-03-16] MEDS: ATORVASTATIN 20 MG TAB PO SCH (21:50)
[2021-03-16] MEDS ORDERED: DAPTOmycin 250 MG in SYRINGE 0 ML IV SCH (22:00)
[2021-03-16] MEDS ORDERED: LOPERAMIDE HCL 2 MG CAP PO STA (23:03)
[2021-03-17] MEDS ORDERED: LOPERAMIDE HCL 2 MG CAP PO STA (04:28)
[2021-03-17 06:15] LABS: Basophils # (auto) 0.01 K/uL (0-0.2); Basophils % (auto) 0.1 %; Eosinophils # (auto) 0.04 K/uL (0-0.5); Eosinophils % (auto) 0.6 %; Immature Granulocytes # (auto) 0.02 K/uL (0.00-0.02); Immature Granulocytes % (auto) 0.3 %; Lymphocytes # (auto) 1.22 K/uL (1.2-3.4); Lymphocytes % (auto) 17.9 %; Mean Corpuscular Hemoglobin 33.5 pg (25-34); Mean Corpuscular Hgb Conc 33.3 g/dL (32-36); Mean Corpuscular Volume 100.4 fL (80-100); Mean Platelet Volume 8.8 fL (7.4-10.4); Monocytes # (auto) 0.62 K/uL (0.11-0.59); Monocytes % (auto) 9.1 %; Neutrophils # (auto) 4.89 K/uL (1.4-6.5); Platelet Count 253 K/uL (130-400); RDW Coefficient of Variation 17.6 % (11.5-14.5); RDW Standard Deviation 63.8 fL (36.4-46.3); Red Blood Count 2.39 M/uL (4.2-5.4)
[2021-03-17 06:58] LABS: Albumin Level 2.6 gm/dl (3.4-5.0); BUN Creatinine Ratio 43.8 (10-20); Calcium 7.9 mg/dl (8.5-10.1); Creatinine Clr Calc Pharmacy 42.4 ml/min; Est GFR (Non-African American) 83.7 ml/min; Potassium 3.5 mmol/L (3.5-5.1)
[2021-03-17 07:01] LABS: Albumin Globulin Ratio 0.7 (0.9-2); Bilirubin,Total 0.5 mg/dl (0.2-1); Globulin 3.6 gm/dl (2.5-4.0); Total Protein 6.2 gm/dl (6.4-8.2)
[2021-03-17] MEDS: DOCUSATE SODIUM 100 MG CAP PO SCH ×2 (07:07→20:36)
[2021-03-17] MEDS ORDERED: VANCOMYCIN TROUGH ONE (07:30)
[2021-03-17] MEDS: ACETAMINOPHEN 325 MG TAB PO PRN (08:54)
[2021-03-17] MEDS: LOPERAMIDE HCL 2 MG CAP PO PRN ×4 (08:54→23:24)
[2021-03-17] MEDS: CEROVITE ADV FORMULA TAB PO SCH (08:55)
[2021-03-17] MEDS: FAMOTIDINE 20 MG TAB PO SCH (08:55)
[2021-03-17] MEDS: levETIRAcetam 250 MG TAB PO SCH ×2 (08:55→21:47)
[2021-03-17] MEDS: DOXYCYCLINE HYCLATE 100 MG CAP PO SCH ×2 (08:55→21:47)
[2021-03-17] MEDS: dexAMETHasone 6 MG in SYRINGE 0 ML IV SCH (08:55)
[2021-03-17] MEDS: UMECLIDINIUM BROMIDE 62.5MCG/BLISTER 7 PUFFS/INHALER INH SCH (08:55)
[2021-03-17] MEDS: amLODIPine BESYLATE 5 MG TAB PO SCH (08:56)
[2021-03-17] MEDS: SODIUM CHLORIDE 0.65% NA SOLN 45 ML (OCEAN) PRN (12:49)
--- NOTE | 2021-03-17 14:04 | Hospitalist Progress Note ---
Date of Service March 17, 2021 Assessment & Plan (1) Encephalopathy: Metabolic Encephalopathy Multifactorial : Acute hypoxemic respiratory failure secondary to severe COVID-19 pneumonia given hypoxemia, possible aspiration pneumonia, Known aspiration risk No sepsis for now, immunocompromised patient given history rheumatoid arthritis on chronic steroid therapy Intolerable headache possibly from uncontrolled HTN secondary to viral illness Home narcotics, baclofen, neuropsychotropic meds contributory Infected leg ulcers Clinically much better today and has been communicating well She has been eating and drinking denies any significant symptoms She is back to her baseline with symptoms and wants to go home She remains quite stable and most likely be discharged home tomorrow Covid 19 infection Pneumonia likely secondary to Covid/superinfection with bacteria Has been receiving intravenous Decadron and received 2 doses of remdesivir so far Initial oxygen saturation was low and required 2 L of nasal cannula oxygen Saturating normally on room air since admission We will consider discontinuing remdesivir given the side effect profile Has been getting intravenous doxycycline and Zosyn She is saturating at more than 94% on room air Like to be discharged in a day or 2 MRSA bacteria in 1 out of 2 bottles Vancomycin was added with positive blood culture with gram-positive cocci in cluster We will check MRSA profile-negative MRSA screen MRSA sensitive to Vanco, Dapto and Bactrim Will discontinue intravenous Zosyn Will need to be PICC line if she goes home on IV Dapto She will have Dapto as an outpatient for 8 more days, will get repeat blood culture today and CBC, CMP and CK level in 4 to 5 days while on Dapto Some moderate protein calorie malnutrition BMI of 16.3 kg/m Nutritional support COPD No significant exacerbation Complicated by COVID-19 infection We will continue nebs as needed and other medications as before Nicotine patch PRN Abdominal discomfort with nausea and vomiting Could be secondary to infection/antibiotics Has been getting Zosyn with some improvement Symptoms have resolved after stopping remdesivir Situational hypertension secondary to discomfort Likely chronic BP elevation given cardiomegaly on prior imaging Blood pressure was noted to be high Seems to be improving with current medication seizure disorder, on Keppra Acute on chronic anemia, hemoglobin drop from baseline secondary to occult GI bleed documented during prior confinements Malnutrition (low BMI) Functional disability Ongoing tobacco abuse Leg Ulcrs Doxycycline, Zosyn for infected leg ulcers Wound care nurse consultation Zosyn has been discontinued Hold home narcotics, baclofen, ropinirole until patient mentation at baseline Nutrition consult already low BMI PT OT eval DVT prophylaxis. SCDs RE occult GI bleed DNR as per patient prior wishes as per sister, Ms. Cindy Salinas (contact #[phone]). Patient son, Tremaine Stover, currently unreachable at listed numbers ([phone]). She wants to go home and does not want to go to rehab as recommended by the physical therapist Likely discharge in a day or 2 Admission and Anticipated Discharge Date Admission Date: March 13, 2021 Subjective 03/14/2021 The patient was seen and examined in telemetry and Covid unit She has been complaining of abdominal discomfort and nausea and she vomited once in front of me She also has mild to moderate shortness of breath at rest Denies any significant pain 03/15/2021 The patient was seen and examined in telemetry and Covid unit She is totally different person today Does not complain of any significant symptoms except some leg pain on standing Has been eating and drinking reasonably well 03/16/2021 The patient was seen and examined in telemetry and Covid unit She has been feeling a lot better and saturating normally on room air She has been getting PT and OT evaluation and going to the bathroom by herself She denies any other significant symptoms and definitely wants to go home 03/17/2021 The patient was seen and examined in telemetry and Covid unit She has been requiring 1-1 sitter since this morning not sure why She denies any symptoms to me and she is quite happy about going home tomorrow She refused to go to rehab Review of Systems Review of Systems: All systems reviewed and are unremarkable except as noted below Constitutional: + fatigue and + weakness Physical Exam Physical Exam: Lying in bed comfortably without any acute distress Constitutional: + ill appearing and + thin; no acute distress Eyes: PERRL, conjunctivae normal, anicteric sclerae ENMT: external ear and nose normal, oropharynx normal Neck: trachea midline, no thyromegaly Respiratory: no respiratory distress (Minimal distress at rest) Auscultation: + diminished lung sounds and + crackles (Bibasilar crackles) Cardiovascular: Rate/Rhythm: regular rate and regular rhythm Heart Sounds: no murmur Extremities: no edema (Trace edema bilaterally) Gastrointestinal (Abdomen): Inspection/Auscultation: normal bowel sounds; abdomen not distended Percussion/Palpation: + abdomen tender (Mildly tender in the epigastrium) Musculoskeletal: No acute arthritis in any joint Neurologic: Alert, awake and oriented x3. Generally weak Psychiatric: A+Ox3, euthymic affect Lymphatic: no cervical or axillary lymphadenopathy Results & Data Results & Data ([facility]) Vital Signs (Past 12 Hours) Vital Signs Temp Pulse Pulse Resp BP Pulse Ox 03/17/21 11:49 36.5 C 80 19 162/64 H 94 03/17/21 08:00 77 03/17/21 07:33 36.7 C 80 19 174/82 H 92 03/17/21 04:07 36.9 C 80 19 156/61 H 94 Laboratory Results Short CBC 03/17/21 Range/Units 05:28 WBC 6.80 (4.8-10.8) K/uL Hgb 8.0 L (12.0-16.0) g/dL Hct 24.0 L (37-47) % Plt Count 253 (130-400) K/uL BMP 03/17/21 05:28 Sodium 138 Potassium 3.5 Chloride 107 Carbon Dioxide 26 BUN 28 H Creatinine 0.64 Glucose 103 H Calcium 7.9 L Cardiac Enzymes 03/17/21 Range/Units 09:10 Total Creatine Kinase 82 (26-192) U/L Liver Function 03/17/21 Range/Units 05:28 Total Bilirubin 0.5 (0.2-1) mg/dl AST 21 (15-37) U/L ALT 11 L (12-78) U/L Alkaline Phosphatase 109 (45-117) U/L Albumin 2.6 L (3.4-5.0) gm/dl Medications Administered Current Inpatient Medications Acetaminophen (Acetaminophen 325 Mg Tab) 650 mg PO Q4H PRN PRN Reason: Pain or Fever Stop: 04/13/21 00:20 Last Admin: 03/17/21 08:54 Dose: 650 mg Documented by: Albuterol (Albuterol Hfa 8 Gm Inhaler) 2 puffs INH QIDR PRN PRN Reason: Shortness Of Breath Or Wheezing Stop: 04/13/21 06:59 Amlodipine Besylate (A[facility]ipine [facility] 5 Mg Tab) [facility] Stop: 04/15/21 08:59 Last Admin: 03/17/21 08:56 Dose: 5 mg Documented by: Docusate Sodium (Docusate Sodium 100 Mg Cap) 100 mg PO BID [facility] Stop: 04/13/21 08:59 Last Admin: 03/17/21 07:07 Dose: Not Given Documented by: Doxycycline Hyclate (Doxycycline Hyclate 100 Mg Cap) 100 mg PO BID@1000,2200 [facility] Stop: 03/21/21 21:59 Last Admin: 03/17/21 08:55 Dose: 100 mg Documented by: Famotidine (Famotidine 20 Mg Tab) 20 mg PO QAM [facility] Stop: 04/13/21 08:59 Last Admin: 03/17/21 08:55 Dose: 20 mg Documented by: Hydromorphone HCl (Hydromorphone Inj 0.5 Mg/0.5 Ml Syr) 0.5 mg IV Q4H PRN PRN Reason: Pain Stop: 03/28/21 08:59 Last Admin: 03/16/21 17:07 Dose: 0.5 mg Documented by: Dexamethasone 6 mg/ Syringe 1.5 mls @ 1 mls/min IV DAILY [facility] Stop: 04/13/21 08:59 Last Admin: 03/17/21 08:55 Dose: 1 mls/min Documented by: Promethazine HCl 6.25 mg/ (Sodium Chloride) 50.25 mls @ 201 mls/hr IV Q6H PRN PRN Reason: Nausea And Vomiting Stop: 04/13/21 00:20 Daptomycin 300 mg/ Syringe 6 mls @ 3 mls/min IV TODAY@2200 [facility]; Protocol Stop: 03/26/21 22:01 Levetiracetam (Levetiracetam 250 Mg Tab) 250 mg PO Q12H [facility] Stop: 04/13/21 08:59 Last Admin: 03/17/21 08:55 Dose: 250 mg Documented by: Loperamide HCl (Loperamide Hcl 2 Mg Cap) 2 mg PO Q4H PRN PRN Reason: Diarrhea Stop: 04/16/21 08:38 Last Admin: 03/17/21 12:49 Dose: 2 mg Documented by: Miscellaneous Information (Daptomycin Consult Active) 1 ea N/A UD PRN PRN Reason: Consult Stop: 04/15/21 15:24 Multivitamins/Minerals (Cerovite Adv Formula Tab) 1 tab PO DAILY [facility] Stop: 04/13/21 08:59 Last Admin: 03/17/21 08:55 Dose: 1 tab Documented by: Olanzapine (Olanzapine 10 Mg/2.1 Ml Sdv) 2.5 mg IM Q4H PRN PRN Reason: anxiety/agitation Stop: 04/13/21 00:20 Ondansetron HCl (Ondansetron Inj 2 Mg/Ml 2 Ml Vial) 4 mg IV Q6H PRN PRN Reason: Nausea And Vomiting Stop: 04/13/21 12:26 Last Admin: 03/16/21 22:49 Dose: 4 mg Documented by: Oxycodone HCl (Oxycodone Hcl Soln 5 Mg/5 Ml Udc) 2.5 mg PO Q4H PRN PRN Reason: Pain Stop: 03/28/21 08:44 Last Admin: 03/16/21 21:51 Dose: 2.5 mg Documented by: Polyethylene Glycol (Polyethylene (Miralax) 17 Gm Pack) 17 gm PO DAILY PRN PRN Reason: constipation Stop: 04/13/21 00:20 Sodium Chloride (Sodium Chloride 0.65% Na Soln 45 Ml ([place])) 2 sprays NA Q3H PRN PRN Reason: nasal dryness Stop: 04/16/21 10:15 Last Admin: 03/17/21 12:49 Dose: 2 sprays Documented by: Umeclidinium [place] (Umeclidinium [place] 62.5mcg/Blister 7 Puffs/Inhaler) 1 puffs INH DAILY [facility] Stop: 04/13/21 08:59 Last Admin: 03/17/21 08:55 Dose: 1 puffs Documented by:
[2021-03-17] MEDS: DAPTOmycin 300 MG in SYRINGE 0 ML IV SCH (19:32)
[2021-03-17] MEDS: oxyCODONE HCL SOLN 5 MG/5 ML UDC PO PRN (21:46)
[2021-03-17] MEDS ORDERED: DAPTOmycin 300 MG in SYRINGE 0 ML IV SCH (22:00)
[2021-03-17] MEDS ORDERED: ZOLPIDEM TARTRATE 5 MG TAB PO STA (23:01)
[2021-03-18] MEDS: ACETAMINOPHEN 325 MG TAB PO PRN (02:26)
[2021-03-18] MEDS: UMECLIDINIUM BROMIDE 62.5MCG/BLISTER 7 PUFFS/INHALER INH SCH (08:25)
[2021-03-18] MEDS: DOCUSATE SODIUM 100 MG CAP PO SCH (08:25)
[2021-03-18] MEDS: dexAMETHasone 6 MG in SYRINGE 0 ML IV SCH (08:25)
[2021-03-18] MEDS: FAMOTIDINE 20 MG TAB PO SCH (08:25)
[2021-03-18] MEDS: CEROVITE ADV FORMULA TAB PO SCH (08:25)
[2021-03-18] MEDS: levETIRAcetam 250 MG TAB PO SCH (08:26)
[2021-03-18] MEDS: amLODIPine BESYLATE 5 MG TAB PO SCH (08:26)
[2021-03-18] MEDS: DOXYCYCLINE HYCLATE 100 MG CAP PO SCH (08:26)
[2021-03-18] MEDS: LOPERAMIDE HCL 2 MG CAP PO PRN ×4 (08:27→18:06)
[2021-03-18 10:07] LABS: Basophils # (auto) 0.02 K/uL (0-0.2); Basophils % (auto) 0.3 %; Eosinophils # (auto) 0.24 K/uL (0-0.5); Eosinophils % (auto) 3.1 %; Hematocrit (blood only) 25.9 % (37-47); Hemoglobin 8.5 g/dL (12.0-16.0); Immature Granulocytes # (auto) 0.04 K/uL (0.00-0.02); Immature Granulocytes % (auto) 0.5 %; Lymphocytes # (auto) 0.97 K/uL (1.2-3.4); Lymphocytes % (auto) 12.5 %; Mean Corpuscular Hemoglobin 33.3 pg (25-34); Mean Corpuscular Hgb Conc 32.8 g/dL (32-36); Mean Corpuscular Volume 101.6 fL (80-100); Mean Platelet Volume 8.6 fL (7.4-10.4); Monocytes # (auto) 0.41 K/uL (0.11-0.59); Monocytes % (auto) 5.3 %; Neutrophils # (auto) 6.11 K/uL (1.4-6.5); Neutrophils % (auto) 78.3 %; Platelet Count 295 K/uL (130-400); RDW Coefficient of Variation 17.3 % (11.5-14.5); RDW Standard Deviation 64.6 fL (36.4-46.3); Red Blood Count 2.55 M/uL (4.2-5.4); White Blood Count 7.79 K/uL (4.8-10.8)
[2021-03-18 10:24] LABS: BUN Creatinine Ratio 34.5 (10-20); Calcium 8.9 mg/dl (8.5-10.1); Creatinine Clr Calc Pharmacy 39.6 ml/min; Est GFR (African American) 94.6 ml/min; Est GFR (Non-African American) 81.6 ml/min; Magnesium 1.9 mg/dl (1.8-2.4); Phosphorus 2.1 mg/dl (2.5-4.9); Potassium 2.9 mmol/L (3.5-5.1)
[2021-03-18] MEDS ORDERED: POTASSIUM CHLORIDE CRTAB 20 MEQ TABCR PO STA (10:52)
[2021-03-18] MEDS ORDERED: POTASSIUM PHOS 3 MMOL/1 ML INFUSION IV STA (10:52)
[2021-03-18] MEDS ORDERED: POTASSIUM PHOSPHATE 21 MMOL in SODIUM CHLORIDE 0.9% 500 ML IV ONE (11:15)
[2021-03-18] MEDS: SODIUM CHLORIDE 0.65% NA SOLN 45 ML (OCEAN) PRN (11:16)
--- NOTE | 2021-03-18 12:59 | Hospitalist Progress Note ---
Date of Service March 18, 2021 Assessment & Plan (1) Encephalopathy: Metabolic Encephalopathy Multifactorial : Acute hypoxemic respiratory failure secondary to severe COVID-19 pneumonia given hypoxemia, possible aspiration pneumonia, Known aspiration risk No sepsis for now, immunocompromised patient given history rheumatoid arthritis on chronic steroid therapy Intolerable headache possibly from uncontrolled HTN secondary to viral illness Home narcotics, baclofen, neuropsychotropic meds contributory Infected leg ulcers Clinically much better today and has been communicating well She has been eating and drinking denies any significant symptoms She is back to her baseline with symptoms and wants to go home Condition remains quite stable and she will be discharged home this afternoon after the antibiotic dose is done Profuse diarrhea C. difficile has been negative Likely secondary to use of antibiotic Has been getting Imodium and will continue Electrolyte imbalance Complicated by diarrhea We will continue with supplement Covid 19 infection Pneumonia likely secondary to Covid/superinfection with bacteria Has been receiving intravenous Decadron and received 2 doses of remdesivir so far Initial oxygen saturation was low and required 2 L of nasal cannula oxygen Saturating normally on room air since admission We will consider discontinuing remdesivir given the side effect profile Has been getting intravenous doxycycline and Zosyn She is saturating at more than 94% on room air We will discharge home this afternoon MRSA bacteria in 1 out of 2 bottles Vancomycin was added with positive blood culture with gram-positive cocci in cluster We will check MRSA profile-negative MRSA screen MRSA sensitive to Vanco, Dapto and Bactrim Will discontinue intravenous Zosyn Will need to be PICC line if she goes home on IV Dapto She will have Dapto as an outpatient for 8 more days, will get repeat blood culture today and CBC, CMP and CK level in 4 to 5 days while on Dapto Some moderate protein calorie malnutrition BMI of 16.3 kg/m Nutritional support COPD No significant exacerbation Complicated by COVID-19 infection We will continue nebs as needed and other medications as before Nicotine patch PRN Abdominal discomfort with nausea and vomiting Could be secondary to infection/antibiotics Has been getting Zosyn with some improvement Symptoms have resolved after stopping remdesivir Resolved Situational hypertension secondary to discomfort Likely chronic BP elevation given cardiomegaly on prior imaging Blood pressure was noted to be high Seems to be improving with current medication seizure disorder, on Keppra Acute on chronic anemia, hemoglobin drop from baseline secondary to occult GI bleed documented during prior confinements Malnutrition (low BMI) Functional disability Ongoing tobacco abuse Leg Ulcrs Doxycycline, Zosyn for infected leg ulcers Wound care nurse consultation Zosyn has been discontinued Hold home narcotics, baclofen, ropinirole until patient mentation at baseline Nutrition consult already low BMI PT OT eval DVT prophylaxis. SCDs RE occult GI bleed DNR as per patient prior wishes as per sister, Ms. Cindy Salinas (contact #[phone]). Patient son, Tremaine Stover, currently unreachable at listed numbers ([phone]). She wants to go home and does not want to go to rehab as recommended by the physical therapist She was advised to take extreme precaution to avoid falls Use the walking device at home Will be discharged home this afternoon Admission and Anticipated Discharge Date Admission Date: March 13, 2021 Subjective 03/14/2021 The patient was seen and examined in telemetry and Covid unit She has been complaining of abdominal discomfort and nausea and she vomited once in front of me She also has mild to moderate shortness of breath at rest Denies any significant pain 03/15/2021 The patient was seen and examined in telemetry and Covid unit She is totally different person today Does not complain of any significant symptoms except some leg pain on standing Has been eating and drinking reasonably well 03/16/2021 The patient was seen and examined in telemetry and Covid unit She has been feeling a lot better and saturating normally on room air She has been getting PT and OT evaluation and going to the bathroom by herself She denies any other significant symptoms and definitely wants to go home 03/17/2021 The patient was seen and examined in telemetry and Covid unit She has been requiring 1-1 sitter since this morning not sure why She denies any symptoms to me and she is quite happy about going home tomorrow She refused to go to rehab 03/18/2021 The patient was seen and examined in telemetry and Covid unit She has been having diarrhea but does not have any abdominal pain, nausea and/or vomiting She does not have any shortness of breath or any pain She remains generally weak but otherwise quite stable Review of Systems Review of Systems: All systems reviewed and are unremarkable except as noted below Constitutional: + fatigue and + weakness Physical Exam Physical Exam: Lying in bed comfortably without any acute distress Constitutional: + ill appearing and + thin; no acute distress Eyes: PERRL, conjunctivae normal, anicteric sclerae ENMT: external ear and nose normal, oropharynx normal Neck: trachea midline, no thyromegaly Respiratory: no respiratory distress (Minimal distress at rest) Auscultation: + diminished lung sounds and + crackles (Bibasilar crackles) Cardiovascular: Rate/Rhythm: regular rate and regular rhythm Heart Sounds: no murmur Extremities: no edema (Trace edema bilaterally) Gastrointestinal (Abdomen): Inspection/Auscultation: normal bowel sounds; abdomen not distended Percussion/Palpation: + abdomen tender (Mildly tender in the epigastrium) Musculoskeletal: No acute arthritis in any joint Neurologic: Alert, awake. Generally weak but no focal neuro deficit Psychiatric: A+Ox3, euthymic affect Lymphatic: no cervical or axillary lymphadenopathy Results & Data Results & Data ([facility]) Vital Signs (Past 12 Hours) Vital Signs Temp Pulse Pulse Resp BP Pulse Ox 03/18/21 11:46 36.9 C 89 19 134/84 90 03/18/21 07:23 36.8 C 60 19 140/93 94 Laboratory Results Short CBC 03/18/21 Range/Units 09:47 WBC 7.79 (4.8-10.8) K/uL Hgb 8.5 L (12.0-16.0) g/dL Hct 25.9 L (37-47) % Plt Count 295 (130-400) K/uL BMP 03/18/21 09:47 Sodium 138 Potassium 2.9 L D Chloride 104 Carbon Dioxide 27 BUN 24 H Creatinine 0.69 Glucose 79 Calcium 8.9 Medications Administered Current Inpatient Medications Acetaminophen (Acetaminophen 325 Mg Tab) 650 mg PO Q4H PRN PRN Reason: Pain or Fever Stop: 04/13/21 00:20 Last Admin: 03/18/21 02:26 Dose: 650 mg Documented by: Albuterol (Albuterol Hfa 8 Gm Inhaler) 2 puffs INH QIDR PRN PRN Reason: Shortness Of Breath Or Wheezing Stop: 04/13/21 06:59 Amlodipine Besylate (Amlodipine Besylate 5 Mg Tab) 5 mg PO QAM [facility] Stop: 04/15/21 08:59 Last Admin: 03/18/21 08:26 Dose: 5 mg Documented by: Docusate Sodium (Docusate Sodium 100 Mg Cap) 100 mg PO BID [facility] Stop: 04/13/21 08:59 Last Admin: 03/18/21 08:25 Dose: Not Given Documented by: Doxycycline Hyclate (Doxycycline Hyclate 100 Mg Cap) 100 mg PO BID@1000,2200 [facility] Stop: 03/21/21 21:59 Last Admin: 03/18/21 08:26 Dose: 100 mg Documented by: Famotidine (Famotidine 20 Mg Tab) 20 mg PO QAM [facility] Stop: 04/13/21 08:59 Last Admin: 03/18/21 08:25 Dose: 20 mg Documented by: Hydromorphone HCl (Hydromorphone Inj 0.5 Mg/0.5 Ml Syr) 0.5 mg IV Q4H PRN PRN Reason: Pain Stop: 03/28/21 08:59 Last Admin: 03/16/21 17:07 Dose: 0.5 mg Documented by: Dexamethasone 6 mg/ Syringe 1.5 mls @ 1 mls/min IV DAILY [facility] Stop: 04/13/21 08:59 Last Admin: 03/18/21 08:25 Dose: 1 mls/min Documented by: Promethazine HCl 6.25 mg/ (Sodium Chloride) 50.25 mls @ 201 mls/hr IV Q6H PRN PRN Reason: Nausea And Vomiting Stop: 04/13/21 00:20 Daptomycin 300 mg/ Syringe 6 mls @ 3 mls/min IV Q24H [facility]; Protocol Stop: 03/31/21 19:59 Last Admin: 03/17/21 19:32 Dose: 3 mls/min Documented by: Potassium Phosphate 21 mmol/ (Sodium Chloride) 507 mls @ 144 mls/hr IV 1115 ONE Stop: 03/18/21 14:46 Last Admin: 03/18/21 11:24 Dose: 144 mls/hr Documented by: Levetiracetam (Levetiracetam 250 Mg Tab) 250 mg PO Q12H [facility] Stop: 04/13/21 08:59 Last Admin: 03/18/21 08:26 Dose: 250 mg Documented by: Loperamide HCl (Loperamide Hcl 2 Mg Cap) 2 mg PO Q2H PRN PRN Reason: Diarrhea Stop: 04/16/21 08:38 Last Admin: 03/18/21 11:14 Dose: 2 mg Documented by: Miscellaneous Information (Daptomycin Consult Active) 1 ea N/A UD PRN PRN Reason: Consult Stop: 04/15/21 15:24 Multivitamins/Minerals (Cerovite Adv Formula Tab) 1 tab PO DAILY YOLANDA Stop: 04/13/21 08:59 Last Admin: 03/18/21 08:25 Dose: 1 tab Documented by: Olanzapine (Olanzapine 10 Mg/2.1 Ml Sdv) 2.5 mg IM Q4H PRN PRN Reason: anxiety/agitation Stop: 04/13/21 00:20 Ondansetron HCl (Ondansetron Inj 2 Mg/Ml 2 Ml Vial) 4 mg IV Q6H PRN PRN Reason: Nausea And Vomiting Stop: 04/13/21 12:26 Last Admin: 03/16/21 22:49 Dose: 4 mg Documented by: Oxycodone HCl (Oxycodone Hcl Soln 5 Mg/5 Ml Udc) 2.5 mg PO Q4H PRN PRN Reason: Pain Stop: 03/28/21 08:44 Last Admin: 03/17/21 21:46 Dose: 2.5 mg Documented by: Polyethylene Glycol (Polyethylene (Miralax) 17 Gm Pack) 17 gm PO DAILY PRN PRN Reason: constipation Stop: 04/13/21 00:20 Potassium Phosphate (Pot Phosphate Monobasic W/ Sod Tab) 1 tab PO TID YOLANDA Stop: 04/17/21 13:59 Sodium Chloride (Sodium Chloride 0.65% Na Soln 45 Ml ([place])) 2 sprays NA Q3H PRN PRN Reason: nasal dryness Stop: 04/16/21 10:15 Last Admin: 03/18/21 11:16 Dose: 2 sprays Documented by: Umeclidinium [place] (Umeclidinium [place] 62.5mcg/Blister 7 Puffs/Inhaler) 1 puffs INH DAILY YOLANDA Stop: 04/13/21 08:59 Last Admin: 03/18/21 08:25 Dose: 1 puffs Documented by:
[2021-03-18] MEDS ORDERED: POT PHOSPHATE MONOBASIC W/ SOD TAB PO SCH (14:00)
[2021-03-18] MEDS: DAPTOmycin 300 MG in SYRINGE 0 ML IV SCH (17:12)
--- NOTE | 2021-03-18 17:21 | Discharge Summary ---
Date of Service March 18, 2021 Admission HPI Per Admitting Provider Chief Complaint: Weakness, cough, shortness of breath Primary Care Provider: Zakia Galvez, History obtained from patient, family, and records. Unable to obtain history from patient secondary disoriented state. Medical history significant for COPD, ongoing tobacco abuse, CAD/PVD as per records, hyperlipidemia, seizure disorder, rheumatoid arthritis on chronic steroid therapy, chronic anemia (baseline hemoglobin of 9-10), restless legs syndrome, aspiration risk as per records. Recent confinement January 2021 for encephalopathy, aspiration pneumonitis, and anemia. Stool Hemoccult noted to be positive. Outpatient endoscopy recommended by GI. Last week, patient complained of head spinning, back and knee pain, to home health provider. Patient sleeping more as per caregiver. Today, patient noted to be confused and agitated. Both legs with ulcerations and swelling. Patient noted to be coughing. Patient complaining of achy headache. At the ER, patient given Zosyn for aspiration pneumonia on x-ray. O2 sats noted to be 90s on 2 L at some point at the ER. MEDICAL HISTORY: As above. SURGERIES: Appendectomy, cataract surgery, exploratory laparotomy, hysterectomy, gynecologic procedures, tonsillectomy, hip fracture surgery FAMILY HISTORY: Diabetes. Heart disease, stroke PERSONAL AND SOCIAL HISTORY: 6 cigarettes daily. No chronic intake of alcohol. 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 Lives alone. Admission Exam Per Admitting Provider Physical Exam: GENERAL: uncomfortable, disoriented , underweight, hard of hearing, no respiratory distress SKIN: Pallor , warm HEENT: Pale palpebral conjunctivae, no ptosis, dry buccal mucosa, nasal cannula in place NECK : Supple, no tenderness CHEST : Decreased breath sounds, no tenderness HEART : RRR, no obvious murmurs ABDOMEN: Some distention, nontender EXTREMITIES : Minimal LE swelling with ulcers, minimal LE tenderness, no other conspicuous deformities noted NEUROLOGIC : Disoriented, hard of hearing, no facial asymmetry, gait and stance not assessed Principal Diagnosis Metabolic encephalopathy-improved, MRSA bacteremia, COVID-19 infection. COPD, seizure disorder, hypertension Discharge Exam Constitutional + ill appearing and + thin; no acute distress Eyes PERRL, conjunctivae normal, anicteric sclerae ENMT external ear and nose normal, oropharynx normal Neck trachea midline, no thyromegaly Respiratory no respiratory distress (Minimal distress at rest) Auscultation: + diminished lung sounds and + crackles (Bibasilar crackles) Cardiovascular Rate/Rhythm: regular rate and regular rhythm Heart Sounds: no murmur Extremities: no edema (Trace edema bilaterally) Gastrointestinal (Abdomen) Inspection/Auscultation: normal bowel sounds; abdomen not distended Percussion/Palpation: + abdomen tender (Mildly tender in the epigastrium) Psychiatric A+Ox3, euthymic affect Lymphatic no cervical or axillary lymphadenopathy Discharge Data Allergies Allergy/AdvReac Type Severity Reaction Status Date / Time pollen extracts Allergy Mild SEASONAL-ITCHY Verified 03/13/21 19:19 EYES,RUNNY NOSE Consultations 03/13/21 20:42 ED Decision to Admit Stat Ordered Studies 03/13/21 18:10 CT head/brain wo con Stat Hospital Course (1) Encephalopathy: Metabolic Encephalopathy Multifactorial : Acute hypoxemic respiratory failure secondary to severe COVID-19 pneumonia given hypoxemia, possible aspiration pneumonia, Known aspiration risk No sepsis for now, immunocompromised patient given history rheumatoid arthritis on chronic steroid therapy Intolerable headache possibly from uncontrolled HTN secondary to viral illness Home narcotics, baclofen, neuropsychotropic meds contributory Infected leg ulcers Clinically much better today and has been communicating well She has been eating and drinking denies any significant symptoms She is back to her baseline with symptoms and wants to go home Condition remains quite stable and she will be discharged home this afternoon after the antibiotic dose is done Profuse diarrhea C. difficile has been negative Likely secondary to use of antibiotic Has been getting Imodium and will continue Electrolyte imbalance Complicated by diarrhea We will continue with supplement Covid 19 infection Pneumonia likely secondary to Covid/superinfection with bacteria Has been receiving intravenous Decadron and received 2 doses of remdesivir so far Initial oxygen saturation was low and required 2 L of nasal cannula oxygen Saturating normally on room air since admission We will consider discontinuing remdesivir given the side effect profile Has been getting intravenous doxycycline and Zosyn She is saturating at more than 94% on room air We will discharge home this afternoon MRSA bacteria in 1 out of 2 bottles Vancomycin was added with positive blood culture with gram-positive cocci in cluster We will check MRSA profile-negative MRSA screen MRSA sensitive to Vanco, Dapto and Bactrim Will discontinue intravenous Zosyn Will need to be PICC line if she goes home on IV Dapto She will have Dapto as an outpatient for 8 more days, will get repeat blood culture today and CBC, CMP and CK level in 4 to 5 days while on Dapto Some moderate protein calorie malnutrition BMI of 16.3 kg/m Nutritional support COPD No significant exacerbation Complicated by COVID-19 infection We will continue nebs as needed and other medications as before Nicotine patch PRN Abdominal discomfort with nausea and vomiting Could be secondary to infection/antibiotics Has been getting Zosyn with some improvement Symptoms have resolved after stopping remdesivir Resolved Situational hypertension secondary to discomfort Likely chronic BP elevation given cardiomegaly on prior imaging Blood pressure was noted to be high Seems to be improving with current medication seizure disorder, on Keppra Acute on chronic anemia, hemoglobin drop from baseline secondary to occult GI bleed documented during prior confinements Malnutrition (low BMI) Functional disability Ongoing tobacco abuse Leg Ulcrs Doxycycline, Zosyn for infected leg ulcers Wound care nurse consultation Zosyn has been discontinued Hold home narcotics, baclofen, ropinirole until patient mentation at baseline Nutrition consult already low BMI PT OT eval DVT prophylaxis. SCDs RE occult GI bleed DNR as per patient prior wishes as per sister, Ms. Cindy Salinas (contact #[phone]). Patient son, Tremaine Stover, currently unreachable at listed numbers ([phone]). She wants to go home and does not want to go to rehab as recommended by the physical therapist She was advised to take extreme precaution to avoid falls Use the walking device at home Will be discharged home this afternoon Total Time Total Time Spent Total Time Spent (In Minutes): 40 minutes Total Time Includes: Examination of the Patient, Discharge Planning, Medication Reconciliation and Communication With Other Providers Discharge Plan Discharge Items Patient Disposition: Home - Home Health Services Reason For Visit: ENCEPHALOPATHY, COVID Discharge Diagnosis: Metabolic encephalopathy-improved, MRSA bacteremia, COVID-19 infection. COPD, seizure disorder, hypertension Condition on Discharge: Fair Activity: As commented below Activity Comment: Please take extra precautions to avoid fall Non-emergency contact: Primary Care Provider Call non-emergency contact if: you have any medication questions and your symptoms worsen Follow-up/Referrals: Zakia Galvez DO [Primary Care Provider] - 03/21/21 3:30 pm (Date & Time 03/21/2021 3:30 PM Provider Susan Brenner, SONIDO [facility] Date & Time 03/24/2021 10:30 AM Provider ELSI Mirza Department [facility] Date & Time 03/22/2021 11:50 AM Provider Zakia Galvez DO Department Family Medicine [facility] PLEASE NOTE THAT THIS IS A TELEPHONE APPOINTMENT. YOUR PHYSICIAN WILL CALL YOU AT THE APPOINTMENT TIME. IF YOU HAVE ANY QUESTIONS REGARDING THIS APPOINTMENT, PLEASE CALL ) Diet: Heart Healthy Diet Texture: Pureed (blended smooth) Addtl Attending Provider Instructions: Please take extra precautions to avoid fall Use a walking device while you are ambulating Finish the course of antibiotic as advised Try to use less of narcotics and your baclofen doses have been decreased to 5 mg 3 times daily You need to have home quarantine for COVID-19 infection until of this month after that precautions as normal people. Home Isolation COVID-19 Instructions The following information about Home Isolation is from the CDC Website: https://www.cdc.gov/coronavirus/2019-ncov/hcp/jjddksxk-hffsrvt-jitmdc.html Stay home except to get medical care People who are mildly ill with COVID-19 are able to isolate at home during their illness. You should restrict activities outside your home, except for getting medical care. Do not go to work, school, or public areas. Avoid using public transportation, ride-sharing, or taxis. Separate yourself from other people and animals in your home People: As much as possible, you should stay in a specific room and away from other people in your home. Also, you should use a separate bathroom, if available. Animals: You should restrict contact with pets and other animals while you are sick with COVID-19, just like you would around other people. Although there have not been reports of pets or other animals becoming sick with COVID-19, it is still recommended that people sick with COVID-19 limit contact with animals until more information is known about the virus. When possible, have another member of your household care for your animals while you are sick. If you are sick with COVID-19, avoid contact with your pet, including petting, snuggling, being kissed or licked, and sharing food. If you must care for your pet or be around animals while you are sick, wash your hands before and after you interact with pets and wear a face mask. Call ahead before visiting your doctor If you have a medical appointment, call the healthcare provider and tell them that you have or may have COVID-19. This will help the healthcare providers office take steps to keep other people from getting infected or exposed. Wear a face mask You should wear a face mask when you are around other people (e.g., sharing a room or vehicle) or pets and before you enter a healthcare providers office. If you are not able to wear a face mask (for example, because it causes trouble breathing), then people who live with you should not stay in the same room with you, or they should wear a face mask if they enter your room. Cover your coughs and sneezes Cover your mouth and nose with a tissue when you cough or sneeze. Throw used tissues in a lined trash can. Immediately wash your hands with soap and water for at least 20 seconds or, if soap and water are not available, clean your hands with an alcohol-based hand dental specialist that contains at least 60% alcohol. Clean your hands often Wash your hands often with soap and water for at least 20 seconds, especially after blowing your nose, coughing, or sneezing; going to the bathroom; and before eating or preparing food. If soap and water are not readily available, use an alcohol-based hand dental specialist with at least 60% alcohol, covering all surfaces of your hands and rubbing them together until they feel dry. Soap and water are the best option if hands are visibly dirty. Avoid touching your eyes, nose, and mouth with unwashed hands. Avoid sharing personal household items You should not share dishes, drinking glasses, cups, eating utensils, towels, or bedding with other people or pets in your home. After using these items, they should be washed thoroughly with soap and water. Clean all high-touch surfaces everyday High touch surfaces include counters, tabletops, doorknobs, bathroom fixtures, toilets, phones, keyboards, tablets, and bedside tables. Also, clean any surfaces that may have blood, stool, or body fluids on them. Use a household cleaning spray or wipe, according to the label instructions. Labels contain instructions for safe and effective use of the cleaning product including precautions you should take when applying the product, such as wearing gloves and making sure you have good ventilation during use of the product. Monitor your symptoms Seek prompt medical attention if your illness is worsening (e.g., difficulty breathing).Beforeseeking care, call your healthcare provider and tell them that you have, or are being evaluated for, COVID-19. Put on a face mask before you enter the facility. These steps will help the healthcare providers office to keep other people in the office or waiting room from getting infected or exposed. Ask your healthcare provider to call the local or state health department. Persons who are placed under active monitoring or facilitated self- monitoring should follow instructions provided by their local health department or occupational health professionals, as appropriate. When working with your local health department check their available hours. If you have a medical emergency and need to call 911, notify the dispatch personnel that you have, or are being evaluated for COVID-19. If possible, put on a face mask before emergency medical services arrive. Discontinuing home isolation Patients with confirmed COVID-19 should remain under home isolation precautions until the risk of secondary transmission to others is thought to be low. The decision to discontinue home isolation precautions should be made on a [id number] basis, in consultation with healthcare providers and [facility] and local health departments. Pending Studies at Discharge: No Stand-Alone Forms: [facility], Smoking Cessation Medications and DC Order Prescriptions: New doxycycline hyclate 100 mg Capsule 100 mg PO BID@1000,2200 3 Days Qty: 6 RF: 0 loperamide 2 mg Capsule 2 mg PO Q2H MDD 8 PRN (Reason: loose stool) 10 Days Qty: 30 RF: 0 amlodipine [Norvasc] 5 mg Tablet 5 mg PO QAM 30 Days Qty: 30 RF: 0 Phospha 250 Neutral 250 mg Tablet 1 tab PO TID 30 Days Qty: 90 RF: 0 Lactinex 1 million cell tablet,chewable 1 tab PO BID Qty: 30 RF: 0 dexamethasone 6 mg tablet 6 mg PO DAILY Qty: 5 RF: 0 Continued Spiriva Respimat 2.5 mcg/actuation mist 1 puff INHALATION DAILY RF: 0 oxycodone 5 mg tablet 2.5 mg PO BID PRN (Reason: Severe Pain (Scale Score 7-10)) Qty: 10 RF: 0 prednisone 5 mg tablet 5 mg PO DAILY RF: 0 ropinirole 0.25 mg tablet 0.25 mg PO HS RF: 0 levetiracetam 250 mg tablet 250 mg PO Q12H RF: 0 famotidine 20 mg tablet 20 mg PO QAM RF: 0 amitriptyline 25 mg tablet 25 mg PO HS RF: 0 polyethylene glycol 3350 [Miralax] 17 gram Powder In Packet 17 g PO DAILY PRN (Reason: constipation) Qty: 14 RF: 0 sodium chloride [Saline Mist] 0.65 % Aerosol,[place] 2 spray NA Q4 PRN (Reason: dry nasal passages) Qty: 15 RF: 0 docusate sodium [Stool Softener] 100 mg capsule 100 mg PO BID RF: 0 Cerovite Senior Tablet 1 tab PO DAILY RF: 0 Changed baclofen 10 mg tablet 5 mg PO TID Qty: 0 RF: 0 Discontinued atorvastatin 20 mg tablet 20 mg PO HS RF: 0 Discharge Orders: Discharge Order (Routine); Ordered 03/18/21 Ordered By: Charissa Odell Admission Data Admit Date/Time: 03/13/21 23:01 Attending Provider: Charissa Odell Admit Provider: Lee Mitchell Primary Care Provider: Zakia Galvez Other Providers: Lee Mitchell ; Sydnie Rayo
== END 2021-03-18 18:48 | disposition home health service (06) | DRG 177 ==
LOC: ED 18:01 → 2E 23:01 → SUATTDRO 23:01 → 2E 23:45

== ENCOUNTER 2021-04-24 15:55 | Inpatient (IN) ==
[2021-04-24] MEDS ORDERED: SODIUM CHLORIDE 0.9% 1000ML 1,000 ML IV STA (17:11)
[2021-04-24] MEDS ORDERED: ACETAMINOPHEN 1,000 MG/100 ML VIAL IV STA (17:14)
--- NOTE | 2021-04-24 17:36 | XRay Report ---
RIGHT ANKLE 3 VIEWS HISTORY: Right ankle pain fall COMPARISON: None. FINDINGS: There is no fracture or dislocation. The bones are osteopenic. Vascular calcifications are noted. Mild soft tissue swelling. No radiopaque foreign bodies. IMPRESSION: No fracture or dislocation within the right ankle. ACT 112: Negative or not required by law. Electronically signed by: Fadi Shell M.D. 04/24/2021 5:35 PM
[2021-04-24 18:30] LABS: Basophils # (auto) 0.02 K/uL (0-0.2); Basophils % (auto) 0.5 %; Eosinophils # (auto) 0.11 K/uL (0-0.5); Eosinophils % (auto) 2.7 %; Hematocrit (blood only) 24.3 % (37-47); Hemoglobin 7.6 g/dL (12.0-16.0); Immature Granulocytes # (auto) 0.01 K/uL (0.00-0.02); Immature Granulocytes % (auto) 0.2 %; Lymphocytes # (auto) 0.99 K/uL (1.2-3.4); Lymphocytes % (auto) 24.1 %; Mean Corpuscular Hemoglobin 30.8 pg (25-34); Mean Corpuscular Hgb Conc 31.3 g/dL (32-36); Mean Corpuscular Volume 98.4 fL (80-100); Monocytes # (auto) 0.35 K/uL (0.11-0.59); Monocytes % (auto) 8.5 %; Neutrophils # (auto) 2.63 K/uL (1.4-6.5); Platelet Count 198 K/uL (130-400); RDW Coefficient of Variation 17.4 % (11.5-14.5); RDW Standard Deviation 61.5 fL (36.4-46.3); Red Blood Count 2.47 M/uL (4.2-5.4); White Blood Count 4.11 K/uL (4.8-10.8)
[2021-04-24 18:51] LABS: Alanine Aminotransferase 11 U/L (12-78); Aspartate Aminotransferase 16 U/L (15-37); BUN Creatinine Ratio 27.3 (10-20); Blood Urea Nitrogen 15 mg/dl (7-18); Calcium 8.6 mg/dl (8.5-10.1); Carbon Dioxide 26 mmol/L (21-32); Chloride 111 mmol/L (98-107); Creatinine Clr Calc Pharmacy 44.4 ml/min; Est GFR (African American) 100.8 ml/min; Est GFR (Non-African American) 86.9 ml/min; Glucose 96 mg/dl (70-99); Lipase 98 U/L (73-393); Magnesium 2.3 mg/dl (1.8-2.4); Potassium 3.6 mmol/L (3.5-5.1); Sodium 142 mmol/L (136-145)
[2021-04-24 18:59] LABS: Albumin Globulin Ratio 0.8 (0.9-2); Alkaline Phosphatase 119 U/L (45-117); Bilirubin Direct 0.1 mg/dl (0-0.2); Bilirubin,Total 0.4 mg/dl (0.2-1); Creatine Kinase 78 U/L (26-192); Globulin 3.6 gm/dl (2.5-4.0); Phosphorus 2.8 mg/dl (2.5-4.9); Thyroid Stimulating Hormone 0.669 uIu/ml (0.300-4.500); Total Protein 6.6 gm/dl (6.4-8.2); Troponin I < 0.015 ng/ml (0-0.045)
[2021-04-24 19:00] LABS: INR 1.1 (0.9-1.1); Partial Thromboplastin Time 25.8 Seconds (21.0-31.0); Prothrombin Time 10.8 Seconds (9.0-12.0)
[2021-04-24 19:03] LABS: Hypochromasia Present; Schistocytes 1+
--- NOTE | 2021-04-24 21:08 | Emergency Department Note ---
Impression & Plan Generalized weakness, Rheumatoid arthritis, Anemia of chronic disease, Ambulatory dysfunction, Dehydration, Adult failure to thrive, Recurrent falls, Periorbital hematoma of right eye ED Provider Note NAME: CLIFFORD MCADAMS AGE: 80 SEX: F ARRIVES VIA: Ambulance INFORMANT: patient ED PROVIDER(S): Jose Parada MD CHIEF COMPLAINT: Unwitnessed fall, prolonged downtime PLAN: Disposition: admit MEDICAL DECISION MAKING: The patient is an 80-year-old woman with a past medical history of rheumatoid arthritis, COPD, chronic anemia, ambulatory dysfunction, sz d/o who presents to the emergency department via EMS after the patient was found down in her home by family in the setting of unknown downtime with suspicion that she had fallen last night. Patient reports losing her balance last night with her walker and while she reports hitting her head she denies loss of consciousness but was too weak to reach a phone to call for help. Prior to today she denies any fevers, chills, cough congestion, GI or symptoms. She reports having a fall last week but denies seeking out medical attention. On arrival the patient is chronically ill-appearing, fatigued, cachectic but no acute distress, afebrile with blood pressure 170s/70s and vital signs otherwise stable. On exam the patient has a large right periorbital contusion/hematoma. She is able to open her eye. 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 She has 1/2 cm laceration above her right eyebrow that appears over 24 hours old at least with dried eschar at the base. There is no surrounding erythema, induration fluctuance or tenderness. The patient has no midline CTL spine tenderness to palpation or step-offs. Her hips and pelvis are stable. She has several scattered minor skin tears to bilateral lower extremities. She has mild tenderness and swelling to the right ankle. Abdomen is benign. WBC within normal limits. Platelets within normal limits. H/H 7.6/24.3 approximately 2 recent values though slightly decreased. MCV is 98.4 in the setting of prior macrocytic values. Chemistry without metabolic acidosis. BUN/creatinine> 20 consistent with patient's clinical dry appearance. LFTs without significant abnormality. Troponin negative/undetectable. Lipase not elevated. TSH within normal limits. UA without convincing evidence of infection. COVID-[address] of the head, cervical spine, chest, abdomen pelvis were performed and did not demonstrate any significant traumatic injuries or acute process per preliminary stat rad report. X-ray of the right ankle negative for fracture or dislocation. However, given the patient's generalized weakness with exam suggestive of failure to thrive and with recurrent falls reasonable to meet the patient further management. The patient is in agreement with this plan. Case was discussed with Dr. Mitchell, [facility] hospitalist, who will evaluate the patient for admission. Triage Nursing notes reviewed and agree them. prior medical records reviewed Vital Signs: reviewed and remarkable for hypertension Differential diagnosis: Infection, dehydration, metabolic abnormality, hypo/hyperglycemia, electrolyte disturbance, anemia, hypoxia, cardiac sources, intracerebral event, toxicologic, neurologic, as well as other pathologies. ER treatment provided: See below. Diagnostics interpreted by me: ECG: Normal sinus rhythm, 66 bpm, no ectopy, no overt ST elevation or depression, QTC 440, QRS 90. Cardiac Monitoring: An order for continuous cardiac monitoring was placed and demonstrated normal sinus rhythm, 66 bpm, no ectopy. Laboratory studies: See below Imaging studies: [facility] Preliminary Findings Only See Final Report For Complete Findings CT HEAD: CT brain without contrast 12/24/2020 No acute intracranial hemorrhage, extra-axial fluid collection or mass-effect. No skull fracture. Grossly stable appearance of the brain compared to the previous exam. Small right periorbital and right frontal scalp hematoma. Abnormal appearance of both left and right orbital lens, stable from the previous exam. Radiologist: Jeni Marrero M.D. Study ready at 20:26 and initial results transmitted at 20:44 -- Preliminary Findings Only See Final Report For Complete Findings CT FACIAL: No acute facial fractures. The paranasal sinuses and mastoid air cells are clear. Right periorbital soft tissue swelling/hematoma, likely posttraumatic. Radiologist: Jeni Marrero M.D. Study ready at 20:26 and initial results transmitted at 20:48 -- Preliminary Findings Only See Final Report For Complete Findings CT C SPINE: No acute fracture of cervical spine. Multilevel degenerative changes of the spine. Slight anterolisthesis C3 upon C4 and C4 upon C5. Vascular calcifications. Mild emphysematous changes within the lung apices. Radiologist: Jeni Marrero M.D. Study ready at 20:26 and initial results transmitted at 20:53 --- Preliminary Findings Only See Final Report For Complete Findings CT CHEST Without Contrast: Comparison: CTA chest 12/31/2020 Moderate upper lobe predominant centrilobular and paraseptal emphysematous changes throughout both lungs. 14 mm average diameter pulmonary nodule posterior basal right lower lobe appears slightly larger than the comparison exam. Malignancy is not excluded. Atherosclerotic calcifications of the aorta and branch vessels. Atherosclerotic calcifications of the coronary arteries. Significant degenerative changes of both glenohumeral joints. Sclerosis and cortical irregularity of the left anterior seventh rib likely represents a subacute fracture. There is a compression deformity of T11 vertebral body which was present on the comparison exam. Mild compression deformity of the inferior endplate of T6 is age indeterminate though new compared to the previous exam. An MRI of the thoracic spine could be performed to add specificity if clinically indicated. Radiologist: Jeni Marrero M.D. Study ready at 20:33 and initial results transmitted at 21:16 --- Preliminary Findings Only See Final Report For Complete Findings CT ABDOMEN & PELVIS Without Contrast: Comparison: CT abdomen pelvis without contrast 12/24/2020 No acute findings within the abdomen or pelvis. No significant free fluid. Multiple age indeterminate compression deformities are visualized throughout the spine, including a compression deformity of the superior endplate of L2 which is new compared to the previous exam. A compression deformity of T11 was present on the previous exam with suggestion of slight increase in height loss. An MRI could be obtained to better determine acuity if clinically indicated. Multilevel degenerative changes of the spine. Old, healed fractures of the left inferior and superior pubic rami. Postsurgical changes of previous ORIF of the right proximal femur. A 4 mm ossified structure anterior to the right femoral head likely represents a loose intra-articular body. Remote fracture left transverse process of L4. Multiple fractures of the inferior left anterior ribs appear either subacute or chronic. Vascular calcifications. Radiologist: Jeni Marrero M.D. Study ready at 20:33 and initial results transmitted at 21:29 Consultation(s): Case was discussed with Dr. Mitchell, [facility] Hospitalist, who will evaluate the patient for admission. HPI: The patient is an 80-year-old woman with a past medical history of rheumatoid arthritis, COPD, chronic anemia, ambulatory dysfunction, sz d/o who presents to the emergency department via EMS after the patient was found down in her home by family in the setting of unknown downtime with suspicion that she had fallen last night. Patient reports losing her balance last night with her walker and while she reports hitting her head she denies loss of consciousness but was too weak to reach a phone to call for help. Prior to today she denies any fevers, chills, cough congestion, GI or symptoms. She reports having a fall last week but denies seeking out medical attention. ROS: See above HPI for pertinent positives & negatives. A total o 10 systems reviewed and were otherwise negative. PAST MEDICAL HISTORY:See Below PAST SURGICAL HISTORY: see Below b FAMILY HISTORY:See Below SOCIAL HISTORY: see Below HOME MEDICATIONS: see Below ALLERGIES:See Below VITALS: see Below PHYSICAL EXAMINATION: GENERAL: Awake, alert, well-appearing, in no distress HENT: Normocephalic, Large right periorbital contusion/hematoma. She is able to open her eye. She has 1/2 cm laceration above her right eyebrow that appears over 24 hours old at least with dried eschar at the base. There is no surrounding erythema, induration fluctuance or tenderness.. Oropharynx unremarkable. 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 NECK: Supple. No nuchal rigidity. FROM. No JVD. RESPIRATORY: Clear to auscultation. CARDIAC: Regular rate, normal rhythm. Extremities warm and well perfused. Pulses equal. ABDOMEN: Soft, non-distended. No tenderness to palpation. No rebound or guarding. No masses. RECTAL: Deferred. MUSCULOSKELETAL: Chest examination reveals no tenderness. The back is symmetrical on inspection without obvious abnormality. No midline CTL spine tenderness to palpation or step-offs. Her hips and pelvis are stable. She has several scattered minor skin tears to bilateral lower extremities. She has mild tenderness and swelling to the right ankle. There is no CVA tenderness to palpat ion. LOWER EXTREMITIES: Calves are equal size bilaterally and non-tender. No edema. No discoloration. NEURO: Normal sensorium. No sensory or motor deficits noted. SKIN: No rash or jaundice noted. Jose Parada MD Past Med/Surg History Medical History Allergic rhinitis Anemia of chronic disease Anxiety Blind right eye COPD (chronic obstructive pulmonary disease) COVID-23 Sep 2020 DNR (do not resuscitate) Hip fracture Restless leg syndrome Rheumatoid arthritis Seizure disorder Surgical History Status post appendectomy Status post cataract extraction Status post exploratory laparotomy "x3 for adhesions" Status post hysterectomy Status post ovarian cystectomy Status post tonsillectomy Status post tubal ligation Family History Brother Cancer Brother Diabetes Sister Diabetes Sister Heart disease Sister Stroke Mother Heart disease Other Family history non-contributory Social History Smoking Status: Current every day smoker Tobacco Type: Cigarettes Cigarettes Per Day: 2; Number of Years Since Quit: 29; Second Hand Exposure: Yes; Preferred Language: [place] Communication Ability: Impaired Visual Impairment: Blindness Chick Grader Required: No Beliefs That Will Affect Care: None marital status: / Current Living Situation: Personal Care Facility Current Living Situation Comment: [facility] Feels Safe at Home: Yes Allergies Allergies Allergy/AdvReac Type Severity Reaction Status Date / Time pollen extracts Allergy Mild SEASONAL-ITCHY Verified 04/24/21 16:42 EYES,RUNNY NOSE Home Meds Home Medications Medication Instructions Recorded Confirmed prednisone 5 mg PO DAILY 07/13/18 04/24/21 ropinirole 0.25 mg PO HS 07/13/18 04/24/21 levetiracetam 250 mg PO Q12H 09/24/20 04/24/21 amitriptyline 25 mg PO HS 10/15/20 04/24/21 famotidine 20 mg PO QAM 10/15/20 04/24/21 Spiriva Respimat 2 puff INHALATION DAILY 12/24/20 04/24/21 Cerovite Senior 1 tab PO DAILY 03/13/21 04/24/21 docusate sodium [Stool Softener] 100 mg PO BID 03/13/21 04/24/21 amlodipine 5 mg PO QAM 04/24/21 04/24/21 atorvastatin 20 mg PO DAILY 04/24/21 04/24/21 baclofen 10 mg PO TID 04/24/21 04/24/21 oxycodone 2.5 mg PO Q12 PRN 04/24/21 04/24/21 Previous Rx's Medication Instructions Recorded polyethylene glycol 3350 [Miralax] 17 g PO DAILY PRN #14 ea 12/09/20 Results & Data (ED) Vital Signs Vital Signs - 24 hr 04/24/21 15:59 04/24/21 18:25 04/24/21 19:20 Temperature 36.3 C L Temperature Source Oral Pulse Rate 71 65 63 Pulse Rate from SpO2 Sensor Pulse Rhythm Regular Pulse Strength Normal Respiratory Rate 10 L 13 15 Respiratory Effort / Characteristics Non-Labored Spontaneous Respiratory Depth Normal Respiratory Pattern Regular Blood Pressure 177/60 H 170/56 H Blood Pressure Mean 99 94 Blood Pressure Position Lying Pulse Oximetry 93 98 92 Oxygen Delivery Method Room Air Room Air Sepsis Recent Fever Within 48 Hours No Sepsis New/Unexplained Change in Mental Status No Sepsis Action Taken by Nursing No Action Required 04/24/21 20:00 04/24/21 20:10 04/24/21 20:50 Temperature Temperature Source Pulse Rate 66 73 63 Pulse Rate from SpO2 Sensor 67 73 62 Pulse Rhythm Pulse Strength Respiratory Rate 19 18 12 Respiratory Effort / Characteristics Respiratory Depth Respiratory Pattern Blood Pressure 183/68 H Blood Pressure Mean 106 Blood Pressure Position Pulse Oximetry 91 95 93 Oxygen Delivery Method Room Air Room Air Room Air Sepsis Recent Fever Within 48 Hours Sepsis New/Unexplained Change in Mental Status Sepsis Action Taken by Nursing 04/24/21 21:00 04/24/21 22:00 04/24/21 23:42 Temperature Temperature Source Pulse Rate 62 67 Pulse Rate from SpO2 Sensor 63 65 67 Pulse Rhythm Pulse Strength Respiratory Rate 13 15 14 Respiratory Effort / Characteristics Respiratory Depth Respiratory Pattern Blood Pressure 188/62 H 179/65 H 179/74 H Blood Pressure Mean 104 103 109 Blood Pressure Position Pulse Oximetry 100 92 92 Oxygen Delivery Method Room Air Room Air Room Air Sepsis Recent Fever Within 48 Hours Sepsis New/Unexplained Change in Mental Status Sepsis Action Taken by Nursing 04/25/21 00:00 04/25/21 00:27 Temperature Temperature Source Pulse Rate 64 73 Pulse Rate from SpO2 Sensor 73 Pulse Rhythm Pulse Strength Respiratory Rate 18 14 Respiratory Effort / Characteristics Respiratory Depth Respiratory Pattern Blood Pressure 182/156 H 185/81 H Blood Pressure Mean 164 115 Blood Pressure Position Pulse Oximetry 96 95 Oxygen Delivery Method Room Air Room Air Sepsis Recent Fever Within 48 Hours Sepsis New/Unexplained Change in Mental Status Sepsis Action Taken by Nursing Laboratory Data Attestation: I reviewed the patient's lab results. Result diagrams: 04/24/21 23:25 04/24/21 18:16 Lab Results 04/24/21 04/24/21 04/24/21 Range/Units 18:16 18:16 18:16 WBC 4.11 L (4.8-10.8) K/uL RBC 2.47 L (4.2-5.4) M/uL Hgb 7.6 L (12.0-16.0) g/dL Hct 24.3 L (37-47) % MCV 98.4 (80-100) fL MCH 30.8 (25-34) pg MCHC 31.3 L (32-36) g/dL RDW Std Deviation 61.5 H (36.4-46.3) fL RDW Coeff of Mandeep 17.4 H (11.5-14.5) % Plt Count 198 (130-400) K/uL MPV 8.0 (7.4-10.4) fL Immature Gran % (Auto) 0.2 % Neut % (Auto) 64.0 % Lymph % (Auto) 24.1 % [place] % (Auto) 8.5 % Eos % (Auto) 2.7 % Baso % (Auto) 0.5 % Neut # (Auto) 2.63 (1.4-6.5) K/uL Lymph # (Auto) 0.99 L (1.2-3.4) K/uL [place] # (Auto) 0.35 (0.11-0.59) K/uL Eos # (Auto) 0.11 (0-0.5) K/uL Baso # (Auto) 0.02 (0-0.2) K/uL Immature Gran # (Auto) 0.01 (0.00-0.02) K/uL Hypochromasia Present Schistocytes 1+ PT 10.8 (9.0-12.0) Seconds INR 1.1 (0.9-1.1) APTT 25.8 (21.0-31.0) Seconds PTT Ratio 1.0 Sodium 142 (136-145) mmol/L Potassium 3.6 (3.5-5.1) mmol/L Chloride 111 H (98-107) mmol/L Carbon Dioxide 26 (21-32) mmol/L Anion Gap 5.0 (3-11) BUN 15 (7-18) mg/dl Creatinine 0.57 L (0.6-1.2) mg/dl Est Cr Clr Drug Dosing 44.4 ml/min Est GFR ( Amer) 100.8 ml/min Est GFR (Non-Af Amer) 86.9 ml/min BUN/Creatinine Ratio 27.3 H (10-20) Glucose 96 (70-99) mg/dl Calcium 8.6 (8.5-10.1) mg/dl Phosphorus 2.8 (2.5-4.9) mg/dl Magnesium 2.3 (1.8-2.4) mg/dl Total Bilirubin 0.4 (0.2-1) mg/dl Direct Bilirubin 0.1 (0-0.2) mg/dl AST 16 (15-37) U/L ALT 11 L (12-78) U/L Alkaline Phosphatase 119 H (45-117) U/L Total Creatine Kinase 78 (26-192) U/L Troponin I < 0.015 (0-0.045) ng/ml Total Protein 6.6 (6.4-8.2) gm/dl Albumin 3.0 L (3.4-5.0) gm/dl Globulin 3.6 (2.5-4.0) gm/dl Albumin/Globulin Ratio 0.8 L (0.9-2) Lipase 98 (73-393) U/L TSH 0.669 (0.300-4.500) uIu/ml Urine Color Urine Appearance (Clear) Urine pH (4.5-7.5) Ur Specific [place] (1.000-1.030) Urine Protein (Negative) Urine Glucose (UA) (Negative) Urine Ketones (Negative) Urine Blood (Negative) Urine Nitrite (Negative) Urine Bilirubin (Negative) Urine Urobilinogen (Negative) Ur Leukocyte Esterase (Negative) Urine WBC (Auto) (0-5) /hpf Urine RBC (Auto) (0-4) /hpf U Hyaline Cast (Auto) (0-5) /lpf U Epithel Cells (Auto) (0-5) /lpf Urine Bacteria (Auto) (Negative) COVID-19 Eval Order SARS-CoV-2 (PCR) (Negative) Blood Type Antibody Screen 04/24/21 04/24/21 04/24/21 Range/Units 22:10 22:10 22:10 WBC (4.8-10.8) K/uL RBC (4.2-5.4) M/uL Hgb (12.0-16.0) g/dL Hct (37-47) % MCV (80-100) fL MCH (25-34) pg MCHC (32-36) g/dL RDW Std Deviation (36.4-46.3) fL RDW Coeff of Mandeep (11.5-14.5) % Plt Count (130-400) K/uL MPV (7.4-10.4) fL Immature Gran % (Auto) % Neut % (Auto) % Lymph % (Auto) % [place] % (Auto) % Eos % (Auto) % Baso % (Auto) % Neut # (Auto) (1.4-6.5) K/uL Lymph # (Auto) (1.2-3.4) K/uL [place] # (Auto) (0.11-0.59) K/uL Eos # (Auto) (0-0.5) K/uL Baso # (Auto) (0-0.2) K/uL Immature Gran # (Auto) (0.00-0.02) K/uL Hypochromasia Schistocytes PT (9.0-12.0) Seconds INR (0.9-1.1) APTT (21.0-31.0) Seconds PTT Ratio Sodium (136-145) mmol/L Potassium (3.5-5.1) mmol/L Chloride (98-107) mmol/L Carbon Dioxide (21-32) mmol/L Anion Gap (3-11) BUN (7-18) mg/dl Creatinine (0.6-1.2) mg/dl Est Cr Clr Drug Dosing ml/min Est GFR ( Amer) ml/min Est GFR (Non-Af Amer) ml/min BUN/Creatinine Ratio (10-20) Glucose (70-99) mg/dl Calcium (8.5-10.1) mg/dl Phosphorus (2.5-4.9) mg/dl Magnesium (1.8-2.4) mg/dl Total Bilirubin (0.2-1) mg/dl Direct Bilirubin (0-0.2) mg/dl AST (15-37) U/L ALT (12-78) U/L Alkaline Phosphatase (45-117) U/L Total Creatine Kinase (26-192) U/L Troponin I (0-0.045) ng/ml Total Protein (6.4-8.2) gm/dl Albumin (3.4-5.0) gm/dl Globulin (2.5-4.0) gm/dl Albumin/Globulin Ratio (0.9-2) Lipase (73-393) U/L TSH (0.300-4.500) uIu/ml Urine Color Yellow Urine Appearance Cloudy A (Clear) Urine pH 8.0 H (4.5-7.5) Ur Specific [place] 1.013 (1.000-1.030) Urine Protein Negative (Negative) Urine Glucose (UA) Negative (Negative) Urine Ketones Negative (Negative) Urine Blood Negative (Negative) Urine Nitrite Negative (Negative) Urine Bilirubin Negative (Negative) Urine Urobilinogen Negative (Negative) Ur Leukocyte Esterase Negative (Negative) Urine WBC (Auto) 0 (0-5) /hpf Urine RBC (Auto) 0-4 (0-4) /hpf U Hyaline Cast (Auto) 0 (0-5) /lpf U Epithel Cells (Auto) 10-20 H (0-5) /lpf Urine Bacteria (Auto) Negative (Negative) COVID-19 Eval Order Covid19 at [facility] SARS-CoV-2 (PCR) NEGATIVE (Negative) Blood Type Antibody Screen 04/24/21 04/24/21 Range/Units 23:25 23:25 WBC (4.8-10.8) K/uL RBC (4.2-5.4) M/uL Hgb 7.5 L (12.0-16.0) g/dL Hct 23.6 L (37-47) % MCV (80-100) fL MCH (25-34) pg MCHC (32-36) g/dL RDW Std Deviation (36.4-46.3) fL RDW Coeff of Mandeep (11.5-14.5) % Plt Count (130-400) K/uL MPV (7.4-10.4) fL Immature Gran % (Auto) % Neut % (Auto) % Lymph % (Auto) % [place] % (Auto) % Eos % (Auto) % Baso % (Auto) % Neut # (Auto) (1.4-6.5) K/uL Lymph # (Auto) (1.2-3.4) K/uL [place] # (Auto) (0.11-0.59) K/uL Eos # (Auto) (0-0.5) K/uL Baso # (Auto) (0-0.2) K/uL Immature Gran # (Auto) (0.00-0.02) K/uL Hypochromasia Schistocytes PT (9.0-12.0) Seconds INR (0.9-1.1) APTT (21.0-31.0) Seconds PTT Ratio Sodium (136-145) mmol/L Potassium (3.5-5.1) mmol/L Chloride (98-107) mmol/L Carbon Dioxide (21-32) mmol/L Anion Gap (3-11) BUN (7-18) mg/dl Creatinine (0.6-1.2) mg/dl Est Cr Clr Drug Dosing ml/min Est GFR ( Amer) ml/min Est GFR (Non-Af Amer) ml/min BUN/Creatinine Ratio (10-20) Glucose (70-99) mg/dl Calcium (8.5-10.1) mg/dl Phosphorus (2.5-4.9) mg/dl Magnesium (1.8-2.4) mg/dl Total Bilirubin (0.2-1) mg/dl Direct Bilirubin (0-0.2) mg/dl AST (15-37) U/L ALT (12-78) U/L Alkaline Phosphatase (45-117) U/L Total Creatine Kinase (26-192) U/L Troponin I (0-0.045) ng/ml Total Protein (6.4-8.2) gm/dl Albumin (3.4-5.0) gm/dl Globulin (2.5-4.0) gm/dl Albumin/Globulin Ratio (0.9-2) Lipase (73-393) U/L TSH (0.300-4.500) uIu/ml Urine Color Urine Appearance (Clear) Urine pH (4.5-7.5) Ur Specific [place] (1.000-1.030) Urine Protein (Negative) Urine Glucose (UA) (Negative) Urine Ketones (Negative) Urine Blood (Negative) Urine Nitrite (Negative) Urine Bilirubin (Negative) Urine Urobilinogen (Negative) Ur Leukocyte Esterase (Negative) Urine WBC (Auto) (0-5) /hpf Urine RBC (Auto) (0-4) /hpf U Hyaline Cast (Auto) (0-5) /lpf U Epithel Cells (Auto) (0-5) /lpf Urine Bacteria (Auto) (Negative) COVID-19 Eval Order SARS-CoV-2 (PCR) (Negative) Blood Type A Positive Antibody Screen NEGATIVE Administered Medications Discontinued Medications Amlodipine Besylate (Amlodipine Besylate 5 Mg Tab) 5 mg PO NOW ONE Stop: 04/24/21 22:58 Last Admin: 04/24/21 23:35 Dose: 5 mg Documented by: [id number] Sodium Chloride (Nss 1000ml) 1,000 mls @ 999 mls/hr IV .Q1H1M STA Stop: 04/24/21 18:11 Last Infusion: 04/24/21 23:37 Dose: 0 mls/hr Documented by: [id number] Admin: 04/24/21 18:25 Dose: 999 mls/hr Documented by: [id number] Acetaminophen (Ofirmev) 1,000 mg in 100 mls @ 400 mls/hr IV NOW STA Stop: 04/24/21 17:28 Last Infusion: 04/24/21 20:02 Dose: 0 mls/hr Documented by: [id number] Admin: 04/24/21 18:26 Dose: 400 mls/hr Documented by: [id number] Morphine Sulfate (Morphine Sulfate 2 Mg/Ml Carp) 2 mg IV NOW STA Stop: 04/24/21 23:52 Last Admin: 04/25/21 00:18 Dose: 2 mg Documented by: [id number] Imaging Data Radiologist's Impression: Ankle X-Ray 04/24/21 17:15 RIGHT ANKLE 3 VIEWS HISTORY: Right ankle pain fall COMPARISON: None. FINDINGS: There is no fracture or dislocation. The bones are osteopenic. Vascular calcifications are noted. Mild soft tissue swelling. No radiopaque foreign bodies. IMPRESSION: No fracture or dislocation within the right ankle. ACT 112: Negative or not required by law. Electronically signed by: Fadi Shell M.D. 04/24/2021 5:35 PM Discharge Plan Visit Data Chief Complaint: Fall ED Provider: Jose Parada Discharge Problem: Generalized weakness, Rheumatoid arthritis, Anemia of chronic disease, Ambulatory dysfunction, Dehydration, Adult failure to thrive, Recurrent falls, Periorbital hematoma of right eye Forms Stand Alone Forms: [facility] Prescriptions Prescriptions: No Action Spiriva Respimat 2.5 mcg/actuation mist 2 puff INHALATION DAILY RF: 0 prednisone 5 mg tablet 5 mg PO DAILY RF: 0 ropinirole 0.25 mg tablet 0.25 mg PO HS RF: 0 levetiracetam 250 mg tablet 250 mg PO Q12H RF: 0 famotidine 20 mg tablet 20 mg PO QAM RF: 0 amitriptyline 25 mg tablet 25 mg PO HS RF: 0 polyethylene glycol 3350 [Miralax] 17 gram Powder In Packet 17 g PO DAILY PRN (Reason: constipation) Qty: 14 RF: 0 baclofen 10 mg tablet 10 mg PO TID RF: 0 atorvastatin 20 mg tablet 20 mg PO DAILY RF: 0 amlodipine 5 mg tablet 5 mg PO QAM RF: 0 oxycodone 5 mg tablet 2.5 mg PO Q12 PRN (Reason: Pain) RF: 0 docusate sodium [Stool Softener] 100 mg capsule 100 mg PO BID RF: 0 Cerovite Senior Tablet 1 tab PO DAILY RF: 0 Discharge Problem: Rheumatoid arthritis Qualifiers: Rheumatoid arthritis location: unspecified site
[2021-04-24 22:33] LABS: Appearance Urine Cloudy (Clear); Bacteria Urine Automated Negative (Negative); Bilirubin Urine Negative (Negative); Blood Urine Negative (Negative); Cast Urine Automated 0 /lpf (0-5); Color Urine Yellow; Glucose Urine UA Negative (Negative); Ketones Urine Negative (Negative); Leukocyte Esterase Urine Negative (Negative); Nitrite Urine Negative (Negative); Protein Urine Negative (Negative); RBC Urine Automated 0-4 /hpf (0-4); Specific Gravity Urine 1.013 (1.000-1.030); Urobilinogen Urine Negative (Negative); WBC Urine Automated 0 /hpf (0-5)
[2021-04-24] MEDS ORDERED: amLODIPine BESYLATE 5 MG TAB PO ONE (22:57)
[2021-04-24 23:44] LABS: Hematocrit (blood only) 23.6 % (37-47); Hemoglobin 7.5 g/dL (12.0-16.0)
[2021-04-24] MEDS ORDERED: MoRPHine SULFATE 2 MG/ML CARP IV STA (23:51)
--- NOTE | 2021-04-24 23:51 | History & Physical Report ---
Date of Service April 24, 2021 Assessment & Plan (1) Asymptomatic hypertensive urgency: Secondary to traumatic R periorbital hematoma secondary to fall Acute on chronic anemia, hemoglobin drop from baseline Secondary to periorbital hematoma hx of occult GI bleed as per records Thoracolumbar compression fracture secondary to fall Incidental finding of pulmonary nodule on CT CAD/PVD as per records COPD, pulmonary status at baseline Rheumatoid arthritis on chronic steroid therapy sacral wound/leg wounds Malnutrition (low BMI) Functional disability Ambulatory dysfunction Ongoing tobacco abuse Medical telemetry Analgesia Titrate amlodipine Transfuse PRBC to maintain hemoglobin greater than 8, history CAD/PVD as per records Outpatient Pulmonology consultation if patient amenable Wound care nurse consult Re: Sacral decubitus, leg wounds Nutrition consult already low BMI Consider inpatient Palliative care consultation to discuss goals of care PT OT eval Nicotine patch PRN DVT prophylaxis. SCDs RE occult GI bleed, traumatic periorbital hematoma DNR Patient requests for her daughter to be updated of plan of care. Ms. Christine Beckford (contact #[phone]). Text document was generated using [employer] voice recognition software. It may contain grammatical or spelling errors. Kindly contact undersigned for clarification of any documentation item in question. History of Present Illness Chief Complaint: Fall Primary Care Provider: Zakia Galvez DO History obtained from patient and records. Medical history significant for COPD, ongoing tobacco abuse, CAD/PVD as per records, hyperlipidemia, seizure disorder, rheumatoid arthritis on chronic steroid therapy, chronic anemia (baseline hemoglobin of 8), restless legs syndrome, aspiration risk as per records. Recent confinement March 2021 for encephalopathy, aspiration pneumonia. Patient fell at home last night while trying to grab her walker causing bruising on the right eye and wounds on both legs. Found by family lying down on the couch today. Achy headache symptoms as per patient. Patient denies chest pain, S OB, syncope. Patient brought to the ER for evaluation. MEDICAL HISTORY: As above. SURGERIES: Appendectomy, cataract surgery, exploratory laparotomy, hysterectomy, gynecologic procedures, tonsillectomy, hip fracture surgery FAMILY HISTORY: Diabetes. Heart disease, stroke PERSONAL AND SOCIAL HISTORY: 6 cigarettes daily. No chronic intake of alcohol. 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 Lives alone. Allergies Allergy/AdvReac Type Severity Reaction Status Date / Time pollen extracts Allergy Mild SEASONAL-ITCHY Verified 04/24/21 16:42 EYES,RUNNY NOSE Home Medications Medication Instructions Recorded Confirmed Type prednisone 5 mg PO DAILY 07/13/18 04/24/21 History ropinirole 0.25 mg PO HS 07/13/18 04/24/21 History levetiracetam 250 mg PO Q12H 09/24/20 04/24/21 History amitriptyline 25 mg PO HS 10/15/20 04/24/21 History famotidine 20 mg PO QAM 10/15/20 04/24/21 History polyethylene glycol 3350 [Miralax] 17 g PO DAILY PRN #14 ea 12/09/20 04/24/21 Rx Spiriva Respimat 2 puff INHALATION DAILY 12/24/20 04/24/21 History Cerovite Senior 1 tab PO DAILY 03/13/21 04/24/21 History docusate sodium [Stool Softener] 100 mg PO BID 03/13/21 04/24/21 History amlodipine 5 mg PO QAM 04/24/21 04/24/21 History atorvastatin 20 mg PO DAILY 04/24/21 04/24/21 History baclofen 10 mg PO TID 04/24/21 04/24/21 History oxycodone 2.5 mg PO Q12 PRN 04/24/21 04/24/21 History Past Med/Surg History Medical History Allergic rhinitis Anemia of chronic disease Anxiety Blind right eye COPD (chronic obstructive pulmonary disease) COVID-23 Sep 2020 DNR (do not resuscitate) Hip fracture Restless leg syndrome Rheumatoid arthritis Seizure disorder Surgical History Status post appendectomy Status post cataract extraction Status post exploratory laparotomy "x3 for adhesions" Status post hysterectomy Status post ovarian cystectomy Status post tonsillectomy Status post tubal ligation Family History Brother Cancer Brother Diabetes Sister Diabetes Sister Heart disease Sister Stroke Mother Heart disease Other Family history non-contributory Social History Smoking Status: Light tobacco smoker Tobacco Type: Cigarettes Cigarettes Per Day: 2; Number of Years Since Quit: 29; Second Hand Exposure: Yes; Tobacco Cessation Education Requested by Patient: No Hx Alcohol Use: No Hx Substance Use: No Preferred Language: Frisian Communication Ability: Effective Visual Impairment: Blindness Line Tender Required: No Beliefs That Will Affect Care: None marital status: / Current Living Situation: Alone Current Living Situation Comment: [facility] Other Information That Helps Us Care for You: No Feels Safe at Home: Yes Safety Concerns: Feels Safe At This Time Assistive Devices: Denture - Upper and Denture - Lower Review of Systems Review of Systems: As per HPI, all 10 systems reviewed, all other ROS negative Physical Exam Physical Exam: GENERAL: uncomfortable, underweight, slightly hard of hearing, no respiratory distress SKIN: Pallor, warm HEENT: Pale palpebral conjunctivae, tender right periorbital hematoma, chronic right eye opacity/atrophy, dry buccal mucosa NECK : Supple, no tenderness CHEST : Decreased breath sounds, no tenderness HEART : RRR, no obvious murmurs ABDOMEN: No distention, nontender BACK : Sacral wound not assessed EXTREMITIES : Ulcerated wounds on both legs without drainage, no LE swelling/tenderness, no other conspicuous deformities noted NEUROLOGIC : Coherent, no facial asymmetry, slightly hard of hearing, no other gross focality Results & Data Results & Data ([facility]) Vital Signs (Past 12 Hours) Vital Signs Temp Pulse Resp BP Pulse Ox 04/24/21 23:42 67 14 179/74 H 92 04/24/21 22:00 15 179/65 H 92 04/24/21 21:00 62 13 188/62 H 100 04/24/21 20:50 63 12 93 04/24/21 20:10 73 18 95 04/24/21 20:00 66 19 183/68 H 91 04/24/21 19:20 63 15 92 04/24/21 18:25 65 13 170/56 H 98 04/24/21 15:59 36.3 C L 71 10 L 177/60 H 93 Laboratory Results Laboratory Results WBC 4.11 K/uL (4.8-10.8) L 04/24/21 18:16 RBC 2.47 M/uL (4.2-5.4) L 04/24/21 18:16 Hgb 7.5 g/dL (12.0-16.0) L 04/24/21 23:25 Hct 23.6 % (37-47) L 04/24/21 23:25 MCV 98.4 fL (80-100) 04/24/21 18:16 MCH 30.8 pg (25-34) 04/24/21 18:16 MCHC 31.3 g/dL (32-36) L 04/24/21 18:16 RDW Std Deviation 61.5 fL (36.4-46.3) H 04/24/21 18:16 RDW Coeff of Mandeep 17.4 % (11.5-14.5) H 04/24/21 18:16 Plt Count 198 K/uL (130-400) 04/24/21 18:16 MPV 8.0 fL (7.4-10.4) 04/24/21 18:16 Immature Gran % (Auto) 0.2 % 04/24/21 18:16 Neut % (Auto) 64.0 % 04/24/21 18:16 Lymph % (Auto) 24.1 % 04/24/21 18:16 [place] % (Auto) 8.5 % 04/24/21 18:16 Eos % (Auto) 2.7 % 04/24/21 18:16 Baso % (Auto) 0.5 % 04/24/21 18:16 Neut # (Auto) 2.63 K/uL (1.4-6.5) 04/24/21 18:16 Lymph # (Auto) 0.99 K/uL (1.2-3.4) L 04/24/21 18:16 [place] # (Auto) 0.35 K/uL (0.11-0.59) 04/24/21 18:16 Eos # (Auto) 0.11 K/uL (0-0.5) 04/24/21 18:16 Baso # (Auto) 0.02 K/uL (0-0.2) 04/24/21 18:16 Immature Gran # (Auto) 0.01 K/uL (0.00-0.02) 04/24/21 18:16 Hypochromasia Present 04/24/21 18:16 Schistocytes 1+ 04/24/21 18:16 PT 10.8 Seconds (9.0-12.0) 04/24/21 18:16 INR 1.1 (0.9-1.1) 04/24/21 18:16 APTT 25.8 Seconds (21.0-31.0) 04/24/21 18:16 PTT Ratio 1.0 04/24/21 18:16 Sodium 142 mmol/L (136-145) 04/24/21 18:16 Potassium 3.6 mmol/L (3.5-5.1) 04/24/21 18:16 Chloride 111 mmol/L (98-107) H 04/24/21 18:16 Carbon Dioxide 26 mmol/L (21-32) 04/24/21 18:16 Anion Gap 5.0 (3-11) 04/24/21 18:16 BUN 15 mg/dl (7-18) 04/24/21 18:16 Creatinine 0.57 mg/dl (0.6-1.2) L 04/24/21 18:16 Est Cr Clr Drug Dosing 44.4 ml/min 04/24/21 18:16 Est GFR ( Amer) 100.8 ml/min 04/24/21 18:16 Est GFR (Non-Af Amer) 86.9 ml/min 04/24/21 18:16 BUN/Creatinine Ratio 27.3 (10-20) H 04/24/21 18:16 Glucose 96 mg/dl (70-99) 04/24/21 18:16 Calcium 8.6 mg/dl (8.5-10.1) 04/24/21 18:16 Phosphorus 2.8 mg/dl (2.5-4.9) 04/24/21 18:16 Magnesium 2.3 mg/dl (1.8-2.4) 04/24/21 18:16 Total Bilirubin 0.4 mg/dl (0.2-1) 04/24/21 18:16 Direct Bilirubin 0.1 mg/dl (0-0.2) 04/24/21 18:16 AST 16 U/L (15-37) 04/24/21 18:16 ALT 11 U/L (12-78) L 04/24/21 18:16 Alkaline Phosphatase 119 U/L (45-117) H 04/24/21 18:16 Total Creatine Kinase 78 U/L (26-192) 04/24/21 18:16 Troponin I < 0.015 ng/ml (0-0.045) 04/24/21 18:16 Total Protein 6.6 gm/dl (6.4-8.2) 04/24/21 18:16 Albumin 3.0 gm/dl (3.4-5.0) L 04/24/21 18:16 Globulin 3.6 gm/dl (2.5-4.0) 04/24/21 18:16 Albumin/Globulin Ratio 0.8 (0.9-2) L 04/24/21 18:16 Lipase 98 U/L (73-393) 04/24/21 18:16 TSH 0.669 uIu/ml (0.300-4.500) 04/24/21 18:16 Urine Color Yellow 04/24/21 22:10 Urine Appearance Cloudy (Clear) A 04/24/21 22:10 Urine pH 8.0 (4.5-7.5) H 04/24/21 22:10 Ur Specific [place] 1.013 (1.000-1.030) 04/24/21 22:10 Urine Protein Negative (Negative) 04/24/21 22:10 Urine Glucose (UA) Negative (Negative) 04/24/21 22:10 Urine Ketones Negative (Negative) 04/24/21 22:10 Urine Blood Negative (Negative) 04/24/21 22:10 Urine Nitrite Negative (Negative) 04/24/21 22:10 Urine Bilirubin Negative (Negative) 04/24/21 22:10 Urine Urobilinogen Negative (Negative) 04/24/21 22:10 Ur Leukocyte Esterase Negative (Negative) 04/24/21 22:10 Urine WBC (Auto) 0 /hpf (0-5) 04/24/21 22:10 Urine RBC (Auto) 0-4 /hpf (0-4) 04/24/21 22:10 U Hyaline Cast (Auto) 0 /lpf (0-5) 04/24/21 22:10 U Epithel Cells (Auto) 10-20 /lpf (0-5) H 04/24/21 22:10 Urine Bacteria (Auto) Negative (Negative) 04/24/21 22:10 COVID-19 Eval Order Covid19 at [facility] 04/24/21 22:10 SARS-CoV-2 (PCR) NEGATIVE (Negative) 04/24/21 22:10 Impressions Ankle X-Ray 04/24/21 17:15 RIGHT ANKLE 3 VIEWS HISTORY: Right ankle pain fall COMPARISON: None. FINDINGS: There is no fracture or dislocation. The bones are osteopenic. Vascular calcifications are noted. Mild soft tissue swelling. No radiopaque foreign bodies. IMPRESSION: No fracture or dislocation within the right ankle. ACT 112: Negative or not required by law. Electronically signed by: Fadi Shell M.D. 04/24/2021 5:[address] head: No acute intracranial findings Maxillofacial CT: 1. No acute facial bone fracture. 2. Small right periorbital contusion. CT cervical spine: No evidence of acute fracture or traumatic subluxation. CT chest: 1. Indeterminate 19 mm right lower lobe pulmonary nodule. Pulmonary consultation is recommended. 2. Redemonstration of a T11 vertebral body burst fracture with mild retropulsion 3. Interval development of an inferior endplate T6 compression fracture 4. Healing left seventh rib fracture CT abdomen, pelvis: 1. No acute intra-abdominal abnormality. 2. Partially imaged 1.7 cm nodule of the right lower lobe. Pulmonary consultation recommended. 3. Acute versus subacute superior endplate compression deformity at L2 with 2 mm retropulsion is new from 12/24/2020. 4. Healing subacute nondisplaced bilateral rib fractures. 5. T11 burst fracture with mild retropulsion redemonstrated. Right ankle x-ray: No fracture or dislocation within the right ankle. EKG as per my interpretation: Rate 65, NSR, normal axis, septal infarct, T wave abnormality septal leads
[2021-04-25] MEDS ORDERED: SODIUM CHLORIDE 0.9% 250 ML IV PRN (01:12)
[2021-04-25] MEDS ORDERED: ACETAMINOPHEN 325 MG TAB PO PRN (01:12)
[2021-04-25] MEDS ORDERED: POLYETHYLENE (MIRALAX) 17 GM PACK PO PRN (01:12)
[2021-04-25] MEDS ORDERED: POTASSIUM CHLORIDE 40 MEQ in SODIUM CHLORIDE 0.45 % 1,000 ML IV ONE (01:45)
[2021-04-25] MEDS ORDERED: hydrALAZINE HCL 20 MG/ML VIAL IV STA (02:27)
[2021-04-25] MEDS ORDERED: amLODIPine BESYLATE 5 MG TAB PO ONE (02:27)
[2021-04-25] MEDS: oxyCODONE HCL IR 5 MG TAB (IMMEDIATE RELEASE) PO PRN (05:26)
[2021-04-25] MEDS: MoRPHine SULFATE 2 MG/ML CARP IV PRN (06:22)
--- NOTE | 2021-04-25 06:50 | CT Scan Report ---
CT head/brain wo con CLINICAL HISTORY: pain fall COMPARISON STUDY: 03/13/2021 TECHNIQUE: Axial CT of the brain is performed from the vertex to the skull base. IV contrast was not administered for this examination. A dose lowering technique was utilized adhering to the principles of ALARA. CT DOSE: 1323.57 mGy.cm FINDINGS: No intra or extra-axial mass lesions are visualized. There is no CT evidence of acute cortical infarc tion. There is no evidence of midline shift. There is no acute hemorrhage. No calvarial fractures ar e visualized. There are patchy white matter hypodensities likely on a small vessel basis. There is no evidence of pathologic ventricular dilatation. There is no evidence of acute sinusitis There is a right frontal scalp contusion. IMPRESSION: No acute intracranial findings ACT 112: Negative or not required by law. Electronically signed by: Stefano Colon M.D. 04/25/2021 6:48 AM
--- NOTE | 2021-04-25 06:58 | CT Scan Report ---
CT OF THE CERVICAL SPINE CLINICAL HISTORY: Neck pain status post trauma COMPARISON STUDY: December 2020 CT DOSE: TECHNIQUE: CT scan of the cervical spine was performed from the skull base to the thoracic inlet. Lashanda ges are reviewed in the axial, sagittal, and coronal planes. IV contrast was not administered for thi s examination. A dose lowering technique was utilized adhering to the principles of ALARA. FINDINGS: The visualized portions of the lung apices reveal no evidence of pneumothorax. There is apical emphys jeffery The prevertebral soft tissues are normal. No acute fractures or traumatic subluxations are visualize d. There are multilevel degenerative changes. Mild anterolisthesis of C3 on C4 is felt to be degenerativ e. IMPRESSION: No evidence of acute fracture or traumatic subluxation. ACT 112: Negative or not required by law. Electronically signed by: Stefano Colon M.D. 04/25/2021 6:57 AM
--- NOTE | 2021-04-25 07:22 | CT Scan Report ---
CT facial bones wo con CLINICAL HISTORY: 80 years-old Female presenting with pain fall. Acute head and facial trauma status post fall COMPARISON STUDY: Head CT of same day and also 03/13/2021, CT maxillofacial 12/24/2020 TECHNIQUE: High-resolution CT scan of the facial bones is performed. Images are reviewed in the axia l, sagittal, and coronal planes. IV contrast was not administered for this examination. A dose lower ing technique was utilized adhering to the principles of ALARA. FINDINGS: Small right periorbital contusion with 5 mm supraorbital hematoma. The left lens is abnormally positi oned posteriorly which is unchanged from the 03/13/2021 exam. Unchanged appearance of the right globe a nd lens. No opaque foreign body. Mastoid air cells and middle ear cavities are clear. The paranasal s inuses are also clear. Right hector bullosa. Leftward bowing and spurring of the nasal septum. Degene rative changes of the temporal mandibular joints and imaged cervical spine. No acute fracture identif ied. IMPRESSION: 1. No acute facial bone fracture. 2. Small right periorbital contusion. ACT 112: Negative or not required by law. The above report was generated using voice recognition software. It may contain grammatical, syntax o r spelling errors. Electronically signed by: Basil Regalado M.D. 04/25/2021 7:21 AM
--- NOTE | 2021-04-25 08:06 | CT Scan Report ---
CT chest diagnostic wo con CLINICAL HISTORY: Chest pain status post trauma COMPARISON STUDY: CT scan dated 12/31/2020 CT DOSE: TECHNIQUE: CT of the thorax was performed from the thoracic inlet to the lung bases. Images are revi ewed in the axial, sagittal, and coronal planes. IV contrast was not administered for this examinatio n. A dose lowering technique was utilized adhering to the principles of ALARA. FINDINGS: Thyroid: Imaged portions of the thyroid gland are normal in appearance. Thoracic aorta: There is no evidence of thoracic aortic aneurysm. Atheromatous calcifications are pre sent within the thoracic aorta. Heart: The heart is normal in size. There are coronary artery calcifications. Lungs and pleural spaces: There is pulmonary emphysema. There is no pneumothorax. There is lower lobe bronchiectasis. There are a few scattered pulmonary micronodules. There is a 19 mm right lower lobe pulmonary nodule. Pulmonary consultation is recommended in follow-up. Mediastinum: There are mildly enlarged mediastinal lymph nodes. Is a 12 mm precarinal lymph node. Is a 13 mm subcarinal lymph node. Miguelina: Hilar structures difficult to assess without intravenous contrast. Axilla: There is no evidence of pathologic axillary lymphadenopathy Upper abdomen: There is a nonspecific 3 mm right renal calcification Skeletal structures: There is interval development of an inferior endplate T6 compression fracture Th ere is redemonstration of a T11 burst fracture with mild retropulsion. There is a healing left anteri or seventh rib fracture IMPRESSION: 1. Indeterminate 19 mm right lower lobe pulmonary nodule. Pulmonary consultation is recommended. 2. Redemonstration of a T11 vertebral body burst fracture with mild retropulsion 3. Interval development of an inferior endplate T6 compression fracture 4. Healing left seventh rib fracture Please refer to below summary of Fleischner criteria recommendations for follow-up of incidental CT n odules (Alistair Abreu, Guidelines for management of small pulmonary nodules detected on CT scans: A sta tement from the Fleischner Society, Radiology 237: [phone].) SOLID NODULES Solitary nodule size: <6 mm * low risk patients: no follow-up needed * high risk patients: optional CT at 12 months Solitary nodule size: 6-8 mm * low risk patients: follow-up at 6-12 months, then consider further follow-up at 18-24 months * high risk patients: initial follow-up CT at 6-12 months and then at 18-24 months if no change Solitary nodule size: >8 mm * either low or high risk patients - consider follow-up CT at 3 months, and/or CT-PET, and/or biopsy Multiple nodules size: <6 mm * low risk patients: no routine follow-up * high risk patients: optional CT at 12 months Multiple nodules size: 6-8 mm * low risk patients: follow-up at 3-6 months, then consider further follow-up at 18-24 months * high risk patients: follow-up at 3-6 months, then at 18-24 months if no change Multiple nodules size: >8 mm * low risk patients: follow-up at 3-6 months, then consider further follow-up at 18-24 months * high risk patients: follow-up at 3-6 months, then at 18-24 months if no change Note: newly detected indeterminate nodule in persons 35 years of age or older. * low risk patients: minimal or absent history of smoking and/or other known risk factors * high risk patients: history of smoking or of other known risk factors (e.g. first degree relative with lung cancer, or exposure to asbestos, radon, uranium) * if a nodule up to 8 mm is partly solid or is ground glass further follow-up is required after 24 m onths to exclude possible slow growing adenocarcinoma (HARLEEN) SUBSOLID NODULES Solitary pure ground-glass nodule * nodule size <6 mm - no CT follow-up required * nodule size >=6 mm - follow-up CT at 6-12 months, then every 2 years until 5 years Solitary part-solid nodule * nodule size <6 mm - no CT follow-up required * nodule size >=6 mm - follow-up CT at 3-6 months. If unchanged, and solid component remains <6 mm, then annual follow-up for 5 years Multiple subsolid nodules * nodule size <6 mm - follow-up CT at 3-6 months, consider further follow-up at 2 and 4 years if sta ble * nodule size >=6 mm - follow-up CT at 3-6 months, subsequent management based on the most suspiciou s nodule(s) ACT 112: Negative or not required by law. Electronically signed by: Stefano Colon M.D. 04/25/2021 8:04 AM
[2021-04-25 08:34] LABS: Basophils # (auto) 0.01 K/uL (0-0.2); Basophils % (auto) 0.2 %; Hematocrit (blood only) 22.7 % (37-47); Hemoglobin 7.4 g/dL (12.0-16.0); Immature Granulocytes # (auto) 0.02 K/uL (0.00-0.02); Immature Granulocytes % (auto) 0.4 %; Lymphocytes # (auto) 0.94 K/uL (1.2-3.4); Lymphocytes % (auto) 19.2 %; Mean Corpuscular Hemoglobin 30.5 pg (25-34); Mean Corpuscular Hgb Conc 32.6 g/dL (32-36); Mean Corpuscular Volume 93.4 fL (80-100); Mean Platelet Volume 8.4 fL (7.4-10.4); Monocytes % (auto) 8.2 %; Neutrophils # (auto) 3.43 K/uL (1.4-6.5); Platelet Count 171 K/uL (130-400); RDW Coefficient of Variation 17.6 % (11.5-14.5); RDW Standard Deviation 59.8 fL (36.4-46.3); Red Blood Count 2.43 M/uL (4.2-5.4)
[2021-04-25] MEDS ORDERED: amLODIPine BESYLATE 5 MG TAB PO SCH (09:00)
[2021-04-25 09:02] LABS: RBC Morphology Unremarkable
--- NOTE | 2021-04-25 09:14 | CT Scan Report ---
ABDOMEN AND PELVIS CT WITHOUT CONTRAST HISTORY: Acute chest and abdominal pain status post fall pain fall TECHNIQUE: Multiaxial CT images of the abdomen and pelvis were performed without contrast. A dose lo wering technique was utilized adhering to the principles of ALARA. COMPARISON STUDY: Chest CT of same day, CT abdomen pelvis 12/24/2020, CTA of the chest 12/31/2020 FINDINGS: Emphysema with dependent bibasilar opacities and bronchiectasis. Partially imaged 1.7 cm solid nodule the basal right lower lobe on image 1. No pneumatosis or pneumoperitoneum. Limited study without the use of contrast. Coronary artery calcifications. The unenhanced spleen, mild to moderately atrophic pancreas, adrenal glands and gallbladder appear un remarkable. The liver is within normal limits. 3 mm calcification of the superior pole right kidney. Bilateral renal vascular calcifications. No ureteral calculus or hydronephrosis identified. Distended urinary bladder with areas of bladder wall thickening, trabeculation and urinary bladder diverticula . Extensive calcified plaque of the abdominal aorta and branch vessels. No adenopathy. No bowel obstruction or bowel wall thickening. Mild to moderate fecal retention. The appendix is not definitively seen. Unremarkable soft tissues. Demineralized appearance of the bones. Subacute healing nondisplaced fractures of the anterior left seventh through 10th ribs and anterior right eighth, [place] th and 10th ribs. Chronic left pelvic ring fractures. Intratrochanteric nail with medullary haley of th e right femur. Evidence of prior hardware removal of the left femur. Unchanged appearance of the sacr um. No acute sacral insufficiency fracture identified. T11 vertebral body burst fracture with retropu lsion redemonstrated. Acute subacute appearing superior endplate compression deformity at L2 with 2 m m retropulsion is new from 12/24/2020. Chronic T12 and L1 compression deformities. IMPRESSION: 1. No acute intra-abdominal abnormality. 2. Partially imaged 1.7 cm nodule of the right lower lobe. Pulmonary consultation recommended. 3. Acute versus subacute superior endplate compression deformity at L2 with 2 mm retropulsion is new from 12/24/2020. 4. Healing subacute nondisplaced bilateral rib fractures. 5. T11 burst fracture with mild retropulsion redemonstrated. 6. Additional findings as above. ACT 112: Negative or not required by law. The above report was generated using voice recognition software. It may contain grammatical, syntax o r spelling errors. Electronically signed by: Basil Regalado M.D. 04/25/2021 9:13 AM
--- NOTE | 2021-04-25 09:30 | Hospitalist Progress Note ---
Date of Service April 25, 2021 Assessment & Plan (1) Asymptomatic hypertensive urgency: Secondary to traumatic R periorbital hematoma secondary to fall Acute on chronic anemia, hemoglobin drop from baseline Secondary to hematoma hx of occult GI bleed as per records CAD/PVD as per records COPD, pulmonary status at baseline sacral wound/leg wounds Malnutrition (low BMI) Functional disability Ambulatory dysfunction Ongoing tobacco abuse Age-related physical debility with moderate malnutrition, BMI 18.1 kg/m*m Medical telemetry Analgesia Titrate amlodipine Transfuse PRBC to maintain hemoglobin greater than 8, history CAD/PVD as per records Wound care nurse consult Re: Sacral decubitus, leg wounds Nutrition consult already low BMI PT OT eval Nicotine patch PRN DVT prophylaxis. SCDs RE occult GI bleed, traumatic periorbital hematoma DNR Labs checked ROS-No Headache, No Visual Changes, No Nausea, No Vomiting, No Fever, No Chills, No Neck Pain or Stiffness, No Chest Pain, No Palpitations, No SOB, No CAN, No Cough, No Sputum, No Wheezing, No Abdominal Pain, No Diarrhea, No Hematemesis, No Hemoptysis, No Unexpected Weight Loss, No Flank pain, No Melena, No Hematochezia, No Frequency, No Urgency, No Burning, No Hematuria, No Rashes, No Diaphoresis. Appetite is Normal, Weak, R Orbital Pain Physical Exam Gen-AAO x 3, NAD, Afebrile, Cachectic and frail Head-NCAT, Blind, Anicteric Sclera, No Posterior Pharyngeal Erythema Neck-Supple, No JVD, No Thyromegaly, No Masses, No LAD, No Bruits Lungs-Clear to Auscultation Bilaterally, No Rales, No Rhonchi, No Wheezing, No Crepitus Chest-No S4, +S1, +S2, No S3, No Murmurs, No Rubs, No Gallops, No Ectopy Abdomen-Soft, Bowel Sounds Present, Non Tender, Non Distended, No Hepatomegaly, No Splenomegaly, No Palpable Masses, No Rebound, No Rigidity, No Guarding Musculoskeletal-Full Range of Motion Bilaterally, No CVAT Extremities-No Cyanosis, No Clubbing, No Edema Nuero-Cranial Nerves II-XII grossly intact, Motor WNL, DTRs WNL, Strength WNL, Non Focal Psych-Normal Mood Admission and Anticipated Discharge Date Admission Date: April 24, 2021 Results & Data Results & Data ([facility]) Vital Signs (Past 12 Hours) Vital Signs Temp Pulse Pulse Resp BP BP Pulse Ox 04/25/21 06:38 36.8 C 81 16 101/52 L 93 04/25/21 04:23 36.8 C 85 18 130/55 L 95 04/25/21 02:30 67 04/25/21 01:18 36.9 C 64 16 203/62 H 97 04/25/21 01:12 36.9 C 64 16 203/62 H 97 04/25/21 00:27 73 14 185/81 H 95 04/25/21 00:00 64 18 182/156 H 96 04/24/21 23:42 67 14 179/74 H 92 04/24/21 22:00 15 179/65 H 92
[2021-04-25] MEDS: UMECLIDINIUM BROMIDE 62.5MCG/BLISTER 7 PUFFS/INHALER INH SCH (09:44)
[2021-04-25] MEDS: ATORVASTATIN 20 MG TAB PO SCH (09:45)
[2021-04-25] MEDS: BACLOFEN 10 MG TAB PO SCH ×3 (09:46→20:06)
[2021-04-25] MEDS: FAMOTIDINE 20 MG TAB PO SCH (09:46)
[2021-04-25] MEDS: DOCUSATE SODIUM 100 MG CAP PO SCH ×2 (09:46→20:06)
[2021-04-25] MEDS: levETIRAcetam 250 MG TAB PO SCH ×2 (09:47→20:07)
[2021-04-25] MEDS: predniSONE 5 MG TAB PO SCH (09:47)
[2021-04-25] MEDS: CEROVITE ADV FORMULA TAB PO SCH (09:47)
--- NOTE | 2021-04-25 13:45 | Electrocardiogram Report ---
Test Reason : Blood Pressure : / mmHG Vent. Rate : 066 BPM Atrial Rate : 066 BPM P-R Int : 146 ms QRS Dur : 090 ms QT Int : 420 ms P-R-T Axes : 041 -20 064 degrees QTc Int : 440 ms Normal sinus rhythm Septal infarct (cited on or before 13-MAR-2021) Abnormal ECG When compared with ECG of 13-MAR-2021 18:32, No significant change was found Confirmed by Elvin Jeronimo ([id number]) on 04/25/2021 1:44:55 PM Referred By: REFERRED SELF Confirmed By:Elvin Jeronimo
[2021-04-25] MEDS: AMITRIPTYLINE HCL 25 MG TAB PO SCH (20:06)
[2021-04-25] MEDS: rOPINIRole HCL 0.25 MG TABLET PO SCH (20:06)
[2021-04-25] MEDS: LIDOCAINE 5% 1 PATCH TD SCH (20:07)
[2021-04-26] MEDS: oxyCODONE HCL IR 5 MG TAB (IMMEDIATE RELEASE) PO PRN ×3 (00:54→20:13)
[2021-04-26 08:49] LABS: Hematocrit (blood only) 30.8 % (37-47); Hemoglobin 9.9 g/dL (12.0-16.0); Mean Corpuscular Hemoglobin 30.2 pg (25-34); Mean Corpuscular Hgb Conc 32.1 g/dL (32-36); Mean Corpuscular Volume 93.9 fL (80-100); Mean Platelet Volume 8.5 fL (7.4-10.4); Platelet Count 180 K/uL (130-400); RDW Coefficient of Variation 16.8 % (11.5-14.5); RDW Standard Deviation 57.6 fL (36.4-46.3); Red Blood Count 3.28 M/uL (4.2-5.4); White Blood Count 3.54 K/uL (4.8-10.8)
[2021-04-26] MEDS: amLODIPine BESYLATE 5 MG TAB PO SCH (08:56)
[2021-04-26] MEDS: ATORVASTATIN 20 MG TAB PO SCH (08:56)
[2021-04-26] MEDS: CEROVITE ADV FORMULA TAB PO SCH (08:57)
[2021-04-26] MEDS: UMECLIDINIUM BROMIDE 62.5MCG/BLISTER 7 PUFFS/INHALER INH SCH (08:57)
[2021-04-26] MEDS: DOCUSATE SODIUM 100 MG CAP PO SCH ×2 (08:57→20:10)
[2021-04-26] MEDS: levETIRAcetam 250 MG TAB PO SCH ×2 (08:57→20:10)
[2021-04-26] MEDS: FAMOTIDINE 20 MG TAB PO SCH (08:57)
[2021-04-26] MEDS: predniSONE 5 MG TAB PO SCH (08:57)
[2021-04-26] MEDS: BACLOFEN 10 MG TAB PO SCH ×3 (09:00→20:11)
[2021-04-26 09:16] LABS: BUN Creatinine Ratio 13.1 (10-20); Calcium 8.9 mg/dl (8.5-10.1); Creatinine Clr Calc Pharmacy 31.2 ml/min; Est GFR (African American) 78.9 ml/min; Est GFR (Non-African American) 68.1 ml/min; Potassium 3.4 mmol/L (3.5-5.1)
--- NOTE | 2021-04-26 11:19 | Hospitalist Progress Note ---
Date of Service April 26, 2021 Assessment & Plan (1) Asymptomatic hypertensive urgency: Secondary to traumatic R periorbital hematoma secondary to fall Acute on chronic anemia, hemoglobin drop from baseline Secondary to periorbital hematoma hx of occult GI bleed as per records Thoracolumbar compression fracture secondary to fall Incidental finding of pulmonary nodule on CT COPD, pulmonary status at baseline Rheumatoid arthritis on chronic steroid therapy sacral wound/leg wounds Malnutrition (low BMI) Functional disability Ambulatory dysfunction Ongoing tobacco abuse Medical telemetry Analgesia Titrate amlodipine Transfuse PRBC to maintain hemoglobin greater than 8, history CAD/PVD as per records Outpatient Pulmonology consultation if patient amenable Wound care nurse consult Re: Sacral decubitus, leg wounds Nutrition consult already low BMI Consider inpatient Palliative care consultation to discuss goals of care PT OT eval Nicotine patch PRN DVT prophylaxis. SCDs RE occult GI bleed, traumatic periorbital hematoma DNR Labs checked ROS-No Headache, No Visual Changes, No Nausea, No Vomiting, No Fever, No Chills, No Neck Pain or Stiffness, No Chest Pain, No Palpitations, No SOB, No CAN, No Cough, No Sputum, No Wheezing, No Abdominal Pain, No Diarrhea, No Hematemesis, No Hemoptysis, No Unexpected Weight Loss, No Flank pain, No Melena, No Hematochezia, No Frequency, No Urgency, No Burning, No Hematuria, No Rashes, No Diaphoresis. Appetite is Normal, Weak, R Orbital Pain Physical Exam Gen-AAO x 3, NAD, Afebrile, Cachectic and frail Head-NCAT, Blind, Anicteric Sclera, No Posterior Pharyngeal Erythema Neck-Supple, No JVD, No Thyromegaly, No Masses, No LAD, No Bruits Lungs-Clear to Auscultation Bilaterally, No Rales, No Rhonchi, No Wheezing, No Crepitus Chest-No S4, +S1, +S2, No S3, No Murmurs, No Rubs, No Gallops, No Ectopy Abdomen-Soft, Bowel Sounds Present, Non Tender, Non Distended, No Hepatomegaly, No Splenomegaly, No Palpable Masses, No Rebound, No Rigidity, No Guarding Musculoskeletal-Full Range of Motion Bilaterally, No CVAT Extremities-No Cyanosis, No Clubbing, No Edema Nuero-Cranial Nerves II-XII grossly intact, Motor WNL, DTRs WNL, Strength WNL, Non Focal Psych-Normal Mood Admission and Anticipated Discharge Date Admission Date: April 24, 2021 Results & Data Results & Data ([facility]) Vital Signs (Past 12 Hours) Vital Signs Temp Pulse Pulse Resp BP Pulse Ox 04/26/21 07:24 67 04/26/21 07:20 36.7 C 66 16 146/58 H 92 04/26/21 03:02 36.9 C 69 18 139/69 93 04/25/21 23:19 36.5 C 74 18 131/64 93
[2021-04-26] MEDS: LIDOCAINE 5% 1 PATCH TD SCH (18:32)
[2021-04-26] MEDS: AMITRIPTYLINE HCL 25 MG TAB PO SCH (20:10)
[2021-04-26] MEDS: rOPINIRole HCL 0.25 MG TABLET PO SCH (20:11)
[2021-04-26] MEDS: MoRPHine SULFATE 2 MG/ML CARP IV PRN (21:41)
[2021-04-27] MEDS: oxyCODONE HCL IR 5 MG TAB (IMMEDIATE RELEASE) PO PRN (05:13)
[2021-04-27] MEDS: BACLOFEN 10 MG TAB PO SCH ×2 (07:54→13:53)
[2021-04-27] MEDS: levETIRAcetam 250 MG TAB PO SCH (07:54)
[2021-04-27] MEDS: CEROVITE ADV FORMULA TAB PO SCH (07:54)
[2021-04-27] MEDS: DOCUSATE SODIUM 100 MG CAP PO SCH (07:54)
[2021-04-27] MEDS: predniSONE 5 MG TAB PO SCH (07:54)
[2021-04-27] MEDS: ATORVASTATIN 20 MG TAB PO SCH (07:55)
[2021-04-27] MEDS: amLODIPine BESYLATE 5 MG TAB PO SCH (07:55)
[2021-04-27] MEDS: FAMOTIDINE 20 MG TAB PO SCH (07:55)
[2021-04-27] MEDS: UMECLIDINIUM BROMIDE 62.5MCG/BLISTER 7 PUFFS/INHALER INH SCH (07:56)
[2021-04-27 08:44] LABS: Hematocrit (blood only) 31.7 % (37-47); Hemoglobin 10.3 g/dL (12.0-16.0); Mean Corpuscular Hemoglobin 30.4 pg (25-34); Mean Corpuscular Hgb Conc 32.5 g/dL (32-36); Mean Corpuscular Volume 93.5 fL (80-100); Platelet Count 176 K/uL (130-400); RDW Coefficient of Variation 16.7 % (11.5-14.5); RDW Standard Deviation 56.7 fL (36.4-46.3); Red Blood Count 3.39 M/uL (4.2-5.4); White Blood Count 5.74 K/uL (4.8-10.8)
[2021-04-27 09:17] LABS: Calcium 8.8 mg/dl (8.5-10.1); Creatinine Clr Calc Pharmacy 33.2 ml/min; Est GFR (African American) 86.6 ml/min; Est GFR (Non-African American) 74.8 ml/min; Potassium 3.4 mmol/L (3.5-5.1)
--- NOTE | 2021-04-27 14:09 | Discharge Summary ---
Date of Service April 27, 2021 Admission HPI Per Admitting Provider History obtained from patient and records. Medical history significant for COPD, ongoing tobacco abuse, CAD/PVD as per records, hyperlipidemia, seizure disorder, rheumatoid arthritis on chronic steroid therapy, chronic anemia (baseline hemoglobin of 8), restless legs syndrome, aspiration risk as per records. Recent confinement March 2021 for encephalopathy, aspiration pneumonia. Patient fell at home last night while trying to grab her walker causing bruising on the right eye and wounds on both legs. Found by family lying down on the couch today. Achy headache symptoms as per patient. Patient denies chest pain, S OB, syncope. Patient brought to the ER for evaluation. MEDICAL HISTORY: As above. SURGERIES: Appendectomy, cataract surgery, exploratory laparotomy, hysterectomy, gynecologic procedures, tonsillectomy, hip fracture surgery FAMILY HISTORY: Diabetes. Heart disease, stroke PERSONAL AND SOCIAL HISTORY: 6 cigarettes daily. No chronic intake of alcohol. 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 Lives alone. Admission Exam Per Admitting Provider GENERAL: uncomfortable, underweight, slightly hard of hearing, no respiratory distress SKIN: Pallor, warm HEENT: Pale palpebral conjunctivae, tender right periorbital hematoma, chronic right eye opacity/atrophy, dry buccal mucosa NECK : Supple, no tenderness CHEST : Decreased breath sounds, no tenderness HEART : RRR, no obvious murmurs ABDOMEN: No distention, nontender BACK : Sacral wound not assessed EXTREMITIES : Ulcerated wounds on both legs without drainage, no LE swelling/tenderness, no other conspicuous deformities noted NEUROLOGIC : Coherent, no facial asymmetry, slightly hard of hearing, no other gross focality Principal Diagnosis Asymptomatic hypertensive urgency: Secondary to traumatic R periorbital hematoma secondary to fall Acute on chronic anemia Thoracolumbar compression fracture secondary to fall Incidental finding of pulmonary nodule on CT COPD Rheumatoid arthritis sacral wound/leg wounds Malnutrition (low BMI) Functional disability Ambulatory dysfunction Ongoing tobacco abuse Discharge Exam see below Discharge Data Allergies Allergy/AdvReac Type Severity Reaction Status Date / Time pollen extracts Allergy Mild SEASONAL-ITCHY Verified 04/24/21 16:42 EYES,RUNNY NOSE Consultations 04/24/21 21:36 ED Decision to Admit Stat Ordered Studies 04/24/21 17:06 CT cervical spine wo con Stat CT head/brain wo con Stat 04/24/21 17:11 CT facial bones wo con Stat 04/24/21 18:47 CT abd pelvis wo con Stat CT chest diagnostic wo con Stat Current Diagnoses Hypertensive urgency (04/24/21) Allergies pollen extracts Allergy (Mild, Verified 04/24/21 16:42) SEASONAL-ITCHY EYES,RUNNY NOSE Height/Weight/Isolation Height 4 ft 8 in Weight 35.8 kg Isolation Type Contact Precautions Chemistry 04/26/21 04/27/21 08:37 08:26 Sodium 138 138 Potassium 3.4 L 3.4 L Chloride 109 H 107 Carbon Dioxide 24 25 Anion Gap 6.0 6.0 BUN 11 14 Creatinine 0.81 0.75 Glucose 135 H 105 H Hospital Course (1) Asymptomatic hypertensive urgency: Secondary to traumatic R periorbital hematoma secondary to fall Acute on chronic anemia, hemoglobin drop from baseline Secondary to periorbital hematoma hx of occult GI bleed as per records Thoracolumbar compression fracture secondary to fall Incidental finding of pulmonary nodule on CT COPD, pulmonary status at baseline Rheumatoid arthritis on chronic steroid therapy sacral wound/leg wounds Malnutrition (low BMI) Functional disability Ambulatory dysfunction Ongoing tobacco abuse Outpatient Pulmonology consultation if patient amenable Wound care nurse consult Re: Sacral decubitus, leg wounds DNR Labs checked DC home c HHC today HPT/OT/PC ROS-No Headache, No Visual Changes, No Nausea, No Vomiting, No Fever, No Chills, No Neck Pain or Stiffness, No Chest Pain, No Palpitations, No SOB, No CAN, No Cough, No Sputum, No Wheezing, No Abdominal Pain, No Diarrhea, No Hematemesis, No Hemoptysis, No Unexpected Weight Loss, No Flank pain, No Melena, No Hematochezia, No Frequency, No Urgency, No Burning, No Hematuria, No Rashes, No Diaphoresis. Appetite is Normal, Weak, R Orbital Pain Physical Exam Gen-AAO x 3, NAD, Afebrile, Cachectic and frail Head-NCAT, Blind, Anicteric Sclera, No Posterior Pharyngeal Erythema Neck-Supple, No JVD, No Thyromegaly, No Masses, No LAD, No Bruits Lungs-Clear to Auscultation Bilaterally, No Rales, No Rhonchi, No Wheezing, No Crepitus Chest-No S4, +S1, +S2, No S3, No Murmurs, No Rubs, No Gallops, No Ectopy Abdomen-Soft, Bowel Sounds Present, Non Tender, Non Distended, No Hepatomegaly, No Splenomegaly, No Palpable Masses, No Rebound, No Rigidity, No Guarding Musculoskeletal-Full Range of Motion Bilaterally, No CVAT Extremities-No Cyanosis, No Clubbing, No Edema Nuero-Cranial Nerves II-XII grossly intact, Motor WNL, DTRs WNL, Strength WNL, Non Focal Psych-Normal Mood Total Time Total Time Spent Total Time Spent (In Minutes): 45 min Total Time Includes: Examination of the Patient, Discharge Planning, Medication Reconciliation and Communication With Other Providers Discharge Plan Discharge Items Patient Disposition: Home - Home Health Services Reason For Visit: HTN URG, ANEMIA Discharge Diagnosis: Asymptomatic hypertensive urgency: Secondary to traumatic R periorbital hematoma secondary to fall Acute on chronic anemia Thoracolumbar compression fracture secondary to fall Incidental finding of pulmonary nodule on CT COPD Rheumatoid arthritis sacral wound/leg wounds Malnutrition (low BMI) Functional disability Ambulatory dysfunction Ongoing tobacco abuse Condition on Discharge: Fair Health Concerns: Declining nutritional status Activity: Resume your previous activity Lifting: None Bathing: No limitations Exercise/Sports: None Driving/Machine Use: none Weightbearing: Full weightbearing Weightbearing Comment: Fall risk Non-emergency contact: Primary Care Provider and Field Service Analyst Call non-emergency contact if: you have any medication questions Follow-up/Referrals: Zakia Galvez DO [Primary Care Provider] - (Date & Time 05/03/2021 11:10 AM Provider Zakia Galvez DO Department Family Medicine [facility] ) Diet: Regular Addtl Attending Provider Instructions: Has pulmonary Nodule on CT Pending Studies at Discharge: No Stand-Alone Forms: [facility], Smoking Cessation Medications and DC Order Prescriptions: New lidocaine 5 % Adhesive Patch,Medicated 1 patch transdermal DAILY@1900 Qty: 30 RF: 0 oxycodone 5 mg Tablet 5 mg PO Q4H PRN (Reason: pain) Qty: 30 RF: 0 Continued Spiriva Respimat 2.5 mcg/actuation mist 2 puff INHALATION DAILY RF: 0 prednisone 5 mg tablet 5 mg PO DAILY RF: 0 ropinirole 0.25 mg tablet 0.25 mg PO HS RF: 0 levetiracetam 250 mg tablet 250 mg PO Q12H RF: 0 famotidine 20 mg tablet 20 mg PO QAM RF: 0 amitriptyline 25 mg tablet 25 mg PO HS RF: 0 polyethylene glycol 3350 [Miralax] 17 gram Powder In Packet 17 g PO DAILY PRN (Reason: constipation) Qty: 14 RF: 0 baclofen 10 mg tablet 10 mg PO TID RF: 0 atorvastatin 20 mg tablet 20 mg PO DAILY RF: 0 amlodipine 5 mg tablet 5 mg PO QAM RF: 0 docusate sodium [Stool Softener] 100 mg capsule 100 mg PO BID RF: 0 Cerovite Senior Tablet 1 tab PO DAILY RF: 0 Discontinued oxycodone 5 mg tablet 2.5 mg PO Q12 PRN (Reason: Pain) RF: 0 Discharge Orders: Discharge Order (Routine); Ordered 04/27/21 Ordered By: Richardson Westfall Admission Data Admit Date/Time: 04/24/21 23:53 Attending Provider: Richardson Westfall Admit Provider: Lee Mitchell Primary Care Provider: Zakia Galvez Other Providers: Lee Mitchell
--- NOTE | 2021-05-20 08:57 | Coding Query ---
CODING QUERY To promote full compliance with coding requirements relating to patient care, provider participation is requested in all cases of web master uncertainty. Please assist us with the question(s) below: Coding Question(s): "Age-related physical debility" is documented on progress note for 04/25 but does not make discharge. Please clarify below: (xx ) Patient with Age-related physical Debility ( ) Age-related physical Debility Ruled Out ( ) Other Please Explain: Thank you Nilo Gaytan Principal Diagnosis: "that condition established after study, to be chiefly responsible for occasioning the admission of the patient to the hospital for care." Co-Existing Principal Diagnosis: "when two or more diagnoses equally meet the criteria for principal diagnosis as determined by the circumstances of admission, diagnostic work up, and/or therapy provided, and the Alphabetic Index, Tabular List, or another coding guideline does not provide sequencing direction, any one of the diagnoses may be sequenced first." "When the physician has documented what appears to be a current diagnosis in the body of the record, but has not included the diagnosis in the final diagnostic statement, the physician should be asked whether the diagnosis should be added." ([facility] 2 QTR90. p3-4) ROBBY
== END 2021-04-27 18:48 | disposition home health service (06) | DRG 884 ==
LOC: ED 15:55 → SUATTDRO 23:53 → 2W 23:53

== ENCOUNTER 2021-05-02 13:37 | Inpatient (IN) ==
--- NOTE | 2021-05-02 15:08 | XRay Report ---
XR chest 1V portable CLINICAL HISTORY: weakness COMPARISON STUDY: 03/13/2021 FINDINGS: The cardiac and mediastinal contours remain stable. There is a 19 mm right perihilar nodule . There is pulmonary emphysema. There is mild diffuse interstitial thickening, mild congestive failur e versus interstitial infectious/inflammatory process. The bones are osteopenic[ IMPRESSION: 1. Nonspecific 19 mm right perihilar nodule 2. Interstitial thickening, mild pulmonary vascular congestion versus interstitial infectious/inflamm atory process 3. Emphysema ACT 112: Negative or not required by law. Electronically signed by: Stefano Colon M.D. 05/02/2021 3:07 PM
--- NOTE | 2021-05-02 15:10 | Emergency Department Note ---
Impression & Plan Recurrent falls, Confusion ED Provider Note Provider: Isidro Suazo MD DATE OF SERVICE: 05/02/2021 CHIEF COMPLAINT: Fall, confusion HISTORY OF PRESENT ILLNESS: Patient is a 80-year-old female with a history of recurrent falls, recent hospitalization here, COPD, and reported seizure disorder presenting here via ambulance from her apartment today. Patient evidently had multiple falls this morning for EMS. Caregivers found her on the floor per the report. EMS attempted to place the patient into chair and she slid straight off into the floor. Patient herself unable provide significant history other than saying she fell. She states she was coming off of her bed but there is some reported get was off of the chair of the toilet. Is unable tell me her birthday or what year it is. She does know her son's names. She complains of some pain in front of her head as well as in the left arm. Patient has some wounds on her lower legs and is somewhat tender in the right denton which is bandaged. States she has to pee reports a little bit of suprapubic tenderness. Denies any difficulty breathing or chest pain. REVIEW OF SYSTEMS: A total of 10 review of systems was obtained and negative except as stated above in the HPI although I am unsure she is a mostly reliable historian. PAST MEDICAL HISTORY: As noted above MEDICATIONS: Reviewed home medication listing SOCIAL HISTORY: Patient lives alone with caregivers assisting, states she has 2 sons. PHYSICAL EXAM: GENERAL: alert to loud verbal stimuli oriented to person but not to year or birthday. Patient is weak appearing resting with eyes closed initially Head: Patient with a small healing abrasion over the right eyebrow with resolving contusion around the right eye. EYES: Obscured hazy right cornea. No significant discharge appreciated from the eyes. Left eye is round and reactive to light. NECK: Trachea midline. ENT: Mucous membranes pink and somewhat dry. LUNGS: Airway patent. No retractions. Breath sounds with scattered wheeze HEART: Regular rate and rhythm. No chest wall tenderness ABDOMEN: Soft with some mild suprapubic tenderness. No guarding. SKIN: Warm and dry with scattered small areas of bruising on the extremities. EXTREMITIES: Approximately 3 x 1 cm mid right denton wound bandaged some slight erythema of the bilateral lower legs. No crepitus appreciated lower legs. Scattered small bruising on the extremities. There is some slight tenderness of the left arm NEUROLOGICAL: No focal deficits withdraws to pain in all 4 extremities and follows some basic commands. No facial droop appreciated. EK bpm normal sinus rhythm with sinus arrhythmia. No PVCs. No acute ST segment elevation noted with a left axis, QTC 446 CONTINUOUS CARDIAC MONITORING: was ordered and showed a heart rate of 60s to 70s bpm in normal sinus rhythm with sinus arrhythmia GCS 14 with some confusion Patient's laboratory studies and imaging reviewed. Differential includes traumatic injury, infection, dehydration, metabolic abnormality, hypo/hyperglycemia, electrolyte disturbance, anemia, hypoxia, cardiac sources, intracerebral event, toxicologic, neurologic, as well as other pathologies. IMPRESSION/MEDICAL DECISION MAKING: Patient recent hospitalization for falls appears to of had at least 2 falls today. Stigmata of prior trauma patient's highly fatigued unable to give any real clear history. CT imaging was completed broadly as well as x-rays of the left arm she complained of some pain here. No evidence of compartment syndrome on exam. Patient has chronic wound to the right lower denton is present. Some scattered bruising on the extremities is noted. Basic labs were obtained including CPK. Blood work shows slightly worsened anemia but no leukocytosis. VBG without acidosis or hypercarbia. Renal function appears stable. No evidence of rhabdomyolysis. Negative troponin. TSH within normal limits. Covid negative. Imaging without acute significant trauma noted per radiology reports. Attempted to contact the patient's son via phone but there was no answer when I tried to call the listed number. Patient on reassessment states very minimal headache currently. She does seem quite fatigued still. Having recurrent falls. Do question her ability to safely go home at this point and again seems just a little bit confused although this could be her baseline. Urinalysis is pending. Given this she was in agreement the plan to be further observed here at the hospital with possible need for placement. Hospitalist was consulted. Hospitalist was made aware of the patient's hypertension. DIAGNOSIS: Falls, confusion DISPOSITION: Hospitalist will evaluate Past Med/Surg History Medical History Allergic rhinitis Anemia of chronic disease Anxiety Blind right eye COPD (chronic obstructive pulmonary disease) COVID-23 Sep 2020 DNR (do not resuscitate) Hip fracture Restless leg syndrome Rheumatoid arthritis Seizure disorder Surgical History Status post appendectomy Status post cataract extraction Status post exploratory laparotomy "x3 for adhesions" Status post hysterectomy Status post ovarian cystectomy Status post tonsillectomy Status post tubal ligation Family History Brother Cancer Brother Diabetes Sister Diabetes Sister Heart disease Sister Stroke Mother Heart disease Other Family history non-contributory Social History Smoking Status: Unknown if ever smoked Tobacco Type: Cigarettes Cigarettes Per Day: 2; Number of Years Since Quit: 29; Second Hand Exposure: Yes; Hx Alcohol Use: No Hx Substance Use: No Preferred Language: Maltese Communication Ability: Effective Visual Impairment: Blindness Rn Embedded Required: No Beliefs That Will Affect Care: None marital status: / Current Living Situation: Alone Current Living Situation Comment: [facility] Feels Safe at Home: Yes Assistive Devices: Walker Allergies Allergies Allergy/AdvReac Type Severity Reaction Status Date / Time pollen extracts Allergy Mild SEASONAL-ITCHY Verified 05/02/21 15:40 EYES,RUNNY NOSE Home Meds Home Medications Medication Instructions Recorded Confirmed prednisone 5 mg PO DAILY 07/13/18 05/02/21 ropinirole 0.25 mg PO HS 07/13/18 05/02/21 levetiracetam 250 mg PO Q12H 09/24/20 05/02/21 amitriptyline 25 mg PO HS 10/15/20 05/02/21 famotidine 20 mg PO QAM 10/15/20 05/02/21 Spiriva Respimat 2 puff INHALATION DAILY 12/24/20 05/02/21 Cerovite Senior 1 tab PO DAILY 03/13/21 05/02/21 docusate sodium [Stool Softener] 100 mg PO BID 03/13/21 05/02/21 amlodipine 5 mg PO QAM 04/24/21 05/02/21 atorvastatin 20 mg PO DAILY 04/24/21 05/02/21 baclofen 10 mg PO TID 04/24/21 05/02/21 Previous Rx's Medication Instructions Recorded polyethylene glycol 3350 [Miralax] 17 g PO DAILY PRN #14 ea 12/09/20 lidocaine 1 patch TRANSDERMAL DAILY@1900 #30 04/27/21 ea oxycodone 5 mg PO Q8H PRN #30 tab 04/27/21 Results & Data (ED) Vital Signs Vital Signs - 24 hr 05/02/21 13:51 05/02/21 15:39 05/02/21 17:01 Temperature 37.3 C Temperature Source Oral Pulse Rate 71 64 Pulse Rate [Radial] 59 L Respiratory Rate 18 16 16 Respiratory Effort / Characteristics Non-Labored Respiratory Depth Normal Blood Pressure 158/75 H Blood Pressure [Left Arm] 196/88 H 138/98 Blood Pressure Mean 102 Blood Pressure Mean [Left Arm] 124 111 Pulse Oximetry 90 93 92 Oxygen Delivery Method Room Air Nasal Cannula Room Air Oxygen Flow Rate 2 Sepsis Recent Fever Within 48 Hours No Sepsis New/Unexplained Change in Mental Status No Sepsis Action Taken by Nursing No Action Required Laboratory Data Result diagrams: 05/02/21 15:13 05/02/21 15:13 Lab Results 05/02/21 05/02/21 05/02/21 Range/Units 15:11 15:11 15:13 WBC 5.39 (4.8-10.8) K/uL RBC 2.85 L (4.2-5.4) M/uL Hgb 8.7 L (12.0-16.0) g/dL Hct 27.2 L (37-47) % MCV 95.4 (80-100) fL MCH 30.5 (25-34) pg MCHC 32.0 (32-36) g/dL RDW Std Deviation 59.4 H (36.4-46.3) fL RDW Coeff of Mandeep 17.3 H (11.5-14.5) % Plt Count 180 (130-400) K/uL MPV 8.8 (7.4-10.4) fL Immature Gran % (Auto) 0.4 % Neut % (Auto) 79.2 % Lymph % (Auto) 10.0 % Giles % (Auto) 6.5 % Eos % (Auto) 3.7 % Baso % (Auto) 0.2 % Neut # (Auto) 4.27 (1.4-6.5) K/uL Lymph # (Auto) 0.54 L (1.2-3.4) K/uL Giles # (Auto) 0.35 (0.11-0.59) K/uL Eos # (Auto) 0.20 (0-0.5) K/uL Baso # (Auto) 0.01 (0-0.2) K/uL Immature Gran # (Auto) 0.02 (0.00-0.02) K/uL PT (9.0-12.0) Seconds INR (0.9-1.1) ABG pH (7.35-7.45) ABG pCO2 (35-46) mmHg ABG pO2 (80-95) mmHg ABG HCO3 (19-24) mmol/L ABG O2 Saturation (90-95) % ABG Base Excess (-9-1.8) mEq/L Alex Test (Pos) Barometric Pressure mm/Hg Oxygen Given Sodium (136-145) mmol/L Potassium (3.5-5.1) mmol/L Chloride (98-107) mmol/L Carbon Dioxide (21-32) mmol/L Anion Gap (3-11) BUN (7-18) mg/dl Creatinine (0.6-1.2) mg/dl Est Cr Clr Drug Dosing Est GFR ( Amer) ml/min Est GFR (Non-Af Amer) ml/min BUN/Creatinine Ratio (10-20) Glucose (70-99) mg/dl Lactate (0.4-2.0) mmol/L Calcium (8.5-10.1) mg/dl Magnesium (1.8-2.4) mg/dl Total Bilirubin (0.2-1) mg/dl AST (15-37) U/L ALT (12-78) U/L Alkaline Phosphatase (45-117) U/L Total Creatine Kinase (26-192) U/L Troponin I (0-0.045) ng/ml Total Protein (6.4-8.2) gm/dl Albumin (3.4-5.0) gm/dl Globulin (2.5-4.0) gm/dl Albumin/Globulin Ratio (0.9-2) TSH (0.300-4.500) uIu/ml COVID-19 Eval Order Covid19 at [facility] SARS-CoV-2 (PCR) NEGATIVE (Negative) 05/02/21 05/02/21 05/02/21 Range/Units 15:13 15:13 15:13 WBC (4.8-10.8) K/uL RBC (4.2-5.4) M/uL Hgb (12.0-16.0) g/dL Hct (37-47) % MCV (80-100) fL MCH (25-34) pg MCHC (32-36) g/dL RDW Std Deviation (36.4-46.3) fL RDW Coeff of Mandeep (11.5-14.5) % Plt Count (130-400) K/uL MPV (7.4-10.4) fL Immature Gran % (Auto) % Neut % (Auto) % Lymph % (Auto) % Giles % (Auto) % Eos % (Auto) % Baso % (Auto) % Neut # (Auto) (1.4-6.5) K/uL Lymph # (Auto) (1.2-3.4) K/uL Giles # (Auto) (0.11-0.59) K/uL Eos # (Auto) (0-0.5) K/uL Baso # (Auto) (0-0.2) K/uL Immature Gran # (Auto) (0.00-0.02) K/uL PT 10.9 (9.0-12.0) Seconds INR 1.1 (0.9-1.1) ABG pH (7.35-7.45) ABG pCO2 (35-46) mmHg ABG pO2 (80-95) mmHg ABG HCO3 (19-24) mmol/L ABG O2 Saturation (90-95) % ABG Base Excess (-9-1.8) mEq/L Alex Test (Pos) Barometric Pressure mm/Hg Oxygen Given Sodium 142 (136-145) mmol/L Potassium 3.7 (3.5-5.1) mmol/L Chloride 109 H (98-107) mmol/L Carbon Dioxide 28 (21-32) mmol/L Anion Gap 5.0 (3-11) BUN 32 H (7-18) mg/dl Creatinine 0.68 (0.6-1.2) mg/dl Est Cr Clr Drug Dosing Not Reportable Est GFR ( Amer) 95.1 ml/min Est GFR (Non-Af Amer) 82.0 ml/min BUN/Creatinine Ratio 47.0 H (10-20) Glucose 100 H (70-99) mg/dl Lactate 0.5 (0.4-2.0) mmol/L Calcium 7.9 L (8.5-10.1) mg/dl Magnesium 2.4 (1.8-2.4) mg/dl Total Bilirubin 0.5 (0.2-1) mg/dl AST 19 (15-37) U/L ALT 13 (12-78) U/L Alkaline Phosphatase 109 (45-117) U/L Total Creatine Kinase 89 (26-192) U/L Troponin I < 0.015 (0-0.045) ng/ml Total Protein 6.6 (6.4-8.2) gm/dl Albumin 3.0 L (3.4-5.0) gm/dl Globulin 3.6 (2.5-4.0) gm/dl Albumin/Globulin Ratio 0.8 L (0.9-2) TSH 0.740 (0.300-4.500) uIu/ml COVID-19 Eval Order SARS-CoV-2 (PCR) (Negative) 05/02/21 Range/Units 15:13 WBC (4.8-10.8) K/uL RBC (4.2-5.4) M/uL Hgb (12.0-16.0) g/dL Hct (37-47) % MCV (80-100) fL MCH (25-34) pg MCHC (32-36) g/dL RDW Std Deviation (36.4-46.3) fL RDW Coeff of Mandeep (11.5-14.5) % Plt Count (130-400) K/uL MPV (7.4-10.4) fL Immature Gran % (Auto) % Neut % (Auto) % Lymph % (Auto) % Giles % (Auto) % Eos % (Auto) % Baso % (Auto) % Neut # (Auto) (1.4-6.5) K/uL Lymph # (Auto) (1.2-3.4) K/uL Giles # (Auto) (0.11-0.59) K/uL Eos # (Auto) (0-0.5) K/uL Baso # (Auto) (0-0.2) K/uL Immature Gran # (Auto) (0.00-0.02) K/uL PT (9.0-12.0) Seconds INR (0.9-1.1) ABG pH 7.46 H (7.35-7.45) ABG pCO2 39 (35-46) mmHg ABG pO2 59 L (80-95) mmHg ABG HCO3 27 H (19-24) mmol/L ABG O2 Saturation 91.7 (90-95) % ABG Base Excess 3.0 H (-9-1.8) mEq/L Alex Test Pos (Pos) Barometric Pressure 737.2 mm/Hg Oxygen Given ROOM AIR Sodium (136-145) mmol/L Potassium (3.5-5.1) mmol/L Chloride (98-107) mmol/L Carbon Dioxide (21-32) mmol/L Anion Gap (3-11) BUN (7-18) mg/dl Creatinine (0.6-1.2) mg/dl Est Cr Clr Drug Dosing Est GFR ( Amer) ml/min Est GFR (Non-Af Amer) ml/min BUN/Creatinine Ratio (10-20) Glucose (70-99) mg/dl Lactate (0.4-2.0) mmol/L Calcium (8.5-10.1) mg/dl Magnesium (1.8-2.4) mg/dl Total Bilirubin (0.2-1) mg/dl AST (15-37) U/L ALT (12-78) U/L Alkaline Phosphatase (45-117) U/L Total Creatine Kinase (26-192) U/L Troponin I (0-0.045) ng/ml Total Protein (6.4-8.2) gm/dl Albumin (3.4-5.0) gm/dl Globulin (2.5-4.0) gm/dl Albumin/Globulin Ratio (0.9-2) TSH (0.300-4.500) uIu/ml COVID-19 Eval Order SARS-CoV-2 (PCR) (Negative) Administered Medications Oxycodone HCl (Oxycodone Hcl Ir 5 Mg Tab (Immediate Release)) 2.5 mg PO Q12H PRN PRN Reason: Pain Stop: 05/16/21 19:44 Last Admin: 05/02/21 19:55 Dose: 2.5 mg Documented by: [id number] Discontinued Medications Hydralazine HCl (Hydralazine Hcl 20 Mg/Ml Vial) 10 mg IV NOW STA Stop: 05/02/21 19:37 Last Admin: 05/02/21 19:55 Dose: 10 mg Documented by: [id number] Imaging Data Radiologist's Impression: Abdomen/Pelvis CT 05/02/21 14:34 CT SCAN OF THE ABDOMEN AND PELVIS WITHOUT IV CONTRAST CLINICAL HISTORY: Fall. COMPARISON STUDY: Abdominal CT dated 04/24/2021. TECHNIQUE: CT scan of the abdomen and pelvis is performed from the lung bases to the proximal femora. Images are reviewed in the axial, sagittal, and coronal planes. IV contrast was not administered for this examination. Note that the examination was performed in significantly suboptimal fashion without IV contrast. There is motion artifact, as well as streak artifact from the arms which could not be elevated above the abdomen. A dose lowering technique was utilized adhering to the principles of ALARA. FINDINGS: Lung bases: The heart is mildly enlarged and without pericardial effusion. The coronary arteries are densely calcified. There is diminished attenuation of the cardiac blood pool as compared to the myocardium suggesting anemia. A small hiatal hernia is noted. Advanced emphysematous change is noted at the lung bases. There are dependent airspace opacities. No pleural effusion or basilar pneumothorax is identified. Liver: The unenhanced liver is normal in size, contour, and attenuation. There is no intrahepatic biliary ductal dilatation. Gallbladder: Unremarkable. Spleen: Normal in size and attenuation. Pancreas: The unenhanced pancreas is atrophic and grossly unremarkable. Adrenal glands: Unremarkable. Kidneys: The unenhanced kidneys are atrophic and without hydronephrosis. Question a punctate nonobstructing right renal calculus. There is no evidence of contour deforming renal mass lesion. Abdominal vasculature: The abdominal aorta is normal in course and caliber noting advanced atherosclerotic calcification. Bowel: There is rectosigmoid fecal retention and moderate to severe constipatio n. No bowel obstruction is seen. Discharge that likely resents a normal appendix is seen anterior to the sacrum on image #[id number]. Peritoneum: There is no intraperitoneal free air or abdominal ascites. Lymphadenopathy: None. Pelvic viscera: The bladder is markedly distended end appears thick walled. The uterus and adnexa are normal as visualized. Skeletal structures: The skeletal structures are osteopenic. There is advanced lumbosacral spondylosis and scoliosis. Compression deformities of T11, T12, L1, and L2 are similar to the 04/24/2021 examination. The T11 and L2 fractures appear subacute. No lytic or blastic lesions are seen. There are healed left pubic ring fractures. Postoperative change is suggested in the left proximal femur. There is chronic posttraumatic deformity of the sacrum. Postoperative change and deformity is noted in the right proximal femur. Again seen are numerous age indeterminant and likely subacute bilateral rib fractures. IMPRESSION: 1. Suboptimal examination without IV contrast. The examination is also significantly compromised by streak and motion. 2. There is no evidence of solid organ injury in the abdomen or pelvis on this unenhanced and significantly compromised examination. 3. Cardiomegaly and emphysema. 4. Dependent airspace opacities likely represent scarring/atelectasis. Correlate clinically for evidence of a superimposed infectious/inflammatory pneumonitis. 5. Thoracolumbar compression deformities are similar in appearance to the 04/24/2021 examination. The T11 and L2 fractures appear subacute. Correlate for point tenderness. 6. Rectosigmoid fecal retention and moderate to severe constipation. 7. The bladder is markedly distended and appears thick walled. 8. Additional chronic findings as above. ACT 112: Negative or not required by law. Electronically signed by: Zeb Noble M.D. 05/02/2021 4:[address] 05/02/21 14:34 CT SCAN OF THE CERVICAL SPINE CLINICAL HISTORY: Fall. COMPARISON STUDY: CT of the cervical spine dated 04/24/2021. TECHNIQUE: CT scan of the cervical spine is performed from the skull base to the upper thoracic spine. Images are reviewed in the axial, sagittal, and coronal planes. IV contrast was not administered for this examination. A dose lowering technique was utilized adhering to the principles of ALARA. FINDINGS: Skeletal structures: The skeletal structures are osteopenic. There is no evidence of fracture or subluxation involving the cervical spine. Vertebral body height is maintained. There is 3 mm anterolisthesis at C3-C4. Minimal ant erolisthesis is also noted at C4-C5. Alignment is otherwise preserved. Anterior osteophytes are seen throughout. The odontoid process and lateral masses are intact. The atlantoaxial articulation is preserved noting advanced productive degenerative change. The spinous processes appear intact. There is moderate to advanced multilevel cervical spondylosis. Uncovertebral and facet arthropathy contribute to neural foraminal stenosis at most levels. Intervertebral discs: There is moderate to advanced disc space narrowing at all cervical levels between C4-C5 and C6-C7. Mild narrowing is seen at the remaining cervical levels. Central canal: Posterior discussed by complexes at C5-C6 and C6-C7 may contribute to mild acquired compromise of the central canal. Soft tissues: The prevertebral and paraspinous soft tissues are within normal limits. There is advanced atherosclerotic calcification of the carotid bulbs. Calcified sialoliths are noted in the parotid glands. Calvarium: The visualized calvarium at the skull base appears intact. Brain parenchyma: Partially visualized brain parenchyma at the skull base is within normal limits noting age-related involutional change. Sinuses and mastoids: The visualized paranasal sinuses are clear. The mastoid air cells are well pneumatized. Lung apices: Clear as visualized. IMPRESSION: 1. There is no evidence of fracture or subluxation involving the cervical spine. 2. Osteopenia and spondylotic change as above. ACT 112: Negative or not required by law. Electronically signed by: Zeb Noble M.D. 05/02/2021 4:[address] 05/02/21 14:34 CT chest diagnostic wo con CT DOSE: HISTORY: fall TECHNIQUE: Multiaxial CT images of the chest were performed without contrast. A dose lowering technique was utilized adhering to the principles of ALARA. COMPARISON: Chest CT 04/24/2021. FINDINGS: Subacute/healing inferior endplate T6 compression fracture and the T11 burst fracture are again noted. The T11 fracture demonstrates up to 4 mm of retropulsion with moderate central canal narrowing at this level. This remains unchanged. Healing nondisplaced right fifth through seventh transverse process fractures are noted. Healing left posterior 11th rib fracture is again noted. There are multiple additional healing left-sided rib fractures, unchanged. No new fractures identified within the chest. Heart is normal in size. No pleural or pericardial effusions. Normal caliber esophagus. Moderate calcified plaque within the normal caliber thoracic aorta. Stable prominent mediastinal lymph nodes. Emphysema. No pneumothorax. Mild respiratory motion artifact. Bibasilar interstitial thickening persists. Partial opacification of the bilateral bronchi which have progressed. This could be due to recent aspiration. Patchy densities within the lower lobes posteriorly have slightly progressed. This could represent atelectasis or pneumonia. Stable 1.7 cm right lower lobe nodule on im age 89. IMPRESSION: 1. Multiple subacute/healing fractures within the chest as described above. This is similar to the prior study. No new/acute fractures identified. 2. Slight progression of the partial opacification of the bilateral lower lobe bronchi and patchy densities within the lower lobes posteriorly. This may represent an aspiration pneumonia. 3. Redemonstration of the 1.7 cm right lower lobe nodule. A neoplastic process remains the diagnosis of exclusion. 4. Emphysema. 5. Please refer to same day abdomen and pelvis CT for further evaluation of the abdominal structures. ACT 112: Negative or not required by law. Electronically signed by: Fadi Shell M.D. 05/02/2021 4:54 PM Chest X-Ray 05/02/21 14:34 XR chest 1V portable CLINICAL HISTORY: weakness COMPARISON STUDY: 03/13/2021 FINDINGS: The cardiac and mediastinal contours remain stable. There is a 19 mm right perihilar nodule. There is pulmonary emphysema. There is mild diffuse interstitial thickening, mild congestive failure versus interstitial infectious/inflammatory process. The bones are osteopenic[ IMPRESSION: 1. Nonspecific 19 mm right perihilar nodule 2. Interstitial thickening, mild pulmonary vascular congestion versus interstitial infectious/inflammatory process 3. Emphysema ACT 112: Negative or not required by law. Electronically signed by: Stefano Colon M.D. 05/02/2021 3:07 PM Forearm X-Ray 05/02/21 14:34 LEFT FOREARM 2 VIEWS CLINICAL HISTORY: Fall with left arm injury. FINDINGS: AP and lateral views of the left forearm are obtained. No prior studies are available for comparison at the time of dictation. The skeletal structures are osteopenic. There is no radiographic evidence of left forearm fracture. The elbow and wrist joints are grossly maintained. Mild soft tissue edema is seen in the distal forearm. IMPRESSION: Mild soft tissue swelling with no radiographic evidence of left forearm fracture. Electronically signed by: Zeb Noble M.D. 05/02/2021 3:[address] 05/02/21 14:34 CT SCAN OF THE BRAIN WITHOUT IV CONTRAST CLINICAL HISTORY: Fall. Change in mental status. COMPARISON STUDY: CT of the brain dated 04/24/2021. TECHNIQUE: Unenhanced axial CT scan of the brain is performed from the vertex to the skull base. A dose lowering technique was utilized adhering to the principles of ALARA. The examination is degraded by motion artifact. FINDINGS: Brain parenchyma: There are age-related involutional changes noting moderate subcortical and periventricular microangiopathic change. There is no hemorrhage, mass effect, or evidence of acute territorial ischemia by CT criteria. Colon- white matter differentiation is preserved. No extra-axial fluid collection is seen. Ventricles, sulci, cisterns: Prominent secondary to involutional change. Intracranial vasculature: There is atherosclerotic calcification of the cavernous carotid and vertebral arteries. Calvarium: The skeletal structures are osteopenic. No depressed calvarial fracture is identified. Sinuses and mastoids: The paranasal sinuses are clear. The mastoid air cells are well pneumatized. Orbits: The bony orbits are grossly intact. There are bilateral ocular lens implants. Displacement of the left ocular lens is similar to previous. IMPRESSION: There is no hemorrhage, mass effect, or evidence of acute territorial ischemia by CT criteria. ACT 112: Negative or not required by law. Electronically signed by: Zeb Noble M.D. 05/02/2021 4:[address] 05/02/21 15:[address] DOSE: 1465.06 mGy.cm HISTORY: fall TECHNIQUE: Multiaxial CT images of the maxillofacial region were performed and reformatted in the coronal plane without the use of contrast. A dose lowering technique was utilized adhering to the principles of ALARA. COMPARISON: CT facial bones 04/24/2021. FINDINGS: The visualized cervical spine, skull base, pterygoid plates, nasal bones, lamina papyracea, orbital floors, mandible, and zygomatic arches are intact. No acute fractures. Mild nasal bone deformities are likely chronic. Mild motion artifact within the mandible. Left nasal septal deviation. The globes and retrobulbar fat are intact. Mild right supraorbital soft tissue swelling is again noted. IMPRESSION: No acute fractures within the maxillofacial region. ACT 112: Negative or not required by law. Electronically signed by: Fadi Shell M.D. 05/02/2021 4:45 PM Discharge Plan Visit Data Chief Complaint: Fall ED Provider: Isidro Suazo Discharge Problem: Recurrent falls, Confusion Patient Disposition: Admitted As Inpatient Discharge Instructions Interventions: ED Discharge Assessment Last Done: 05/02/21 20:47
--- NOTE | 2021-05-02 15:16 | XRay Report ---
LEFT FOREARM 2 VIEWS CLINICAL HISTORY: Fall with left arm injury. FINDINGS: AP and lateral views of the left forearm are obtained. No prior studies are available for c omparison at the time of dictation. The skeletal structures are osteopenic. There is no radiographic evidence of left forearm fracture. The elbow and wrist joints are grossly maintained. Mild soft tissu e edema is seen in the distal forearm. IMPRESSION: Mild soft tissue swelling with no radiographic evidence of left forearm fracture. Electronically signed by: Zeb Noble M.D. 05/02/2021 3:15 PM
[2021-05-02 15:26] LABS: Basophils # (auto) 0.01 K/uL (0-0.2); Basophils % (auto) 0.2 %; Eosinophils % (auto) 3.7 %; Hematocrit (blood only) 27.2 % (37-47); Hemoglobin 8.7 g/dL (12.0-16.0); Immature Granulocytes # (auto) 0.02 K/uL (0.00-0.02); Immature Granulocytes % (auto) 0.4 %; Lymphocytes # (auto) 0.54 K/uL (1.2-3.4); Mean Corpuscular Hemoglobin 30.5 pg (25-34); Mean Corpuscular Volume 95.4 fL (80-100); Mean Platelet Volume 8.8 fL (7.4-10.4); Monocytes # (auto) 0.35 K/uL (0.11-0.59); Monocytes % (auto) 6.5 %; Neutrophils # (auto) 4.27 K/uL (1.4-6.5); Neutrophils % (auto) 79.2 %; Platelet Count 180 K/uL (130-400); RDW Coefficient of Variation 17.3 % (11.5-14.5); RDW Standard Deviation 59.4 fL (36.4-46.3); Red Blood Count 2.85 M/uL (4.2-5.4); White Blood Count 5.39 K/uL (4.8-10.8)
[2021-05-02 15:37] LABS: INR 1.1 (0.9-1.1); Prothrombin Time 10.9 Seconds (9.0-12.0)
[2021-05-02 15:39] LABS: HCO3 ABG 27 mmol/L (19-24); Oxygen Saturation ABG 91.7 % (90-95); PCO2 ABG 39 mmHg (35-46); PO2 ABG 59 mmHg (80-95); pH ABG 7.46 (7.35-7.45)
[2021-05-02 15:40] LABS: Allen Test Pos (Pos)
[2021-05-02 15:55] LABS: Alanine Aminotransferase 13 U/L (12-78); Aspartate Aminotransferase 19 U/L (15-37); Blood Urea Nitrogen 32 mg/dl (7-18); Calcium 7.9 mg/dl (8.5-10.1); Carbon Dioxide 28 mmol/L (21-32); Chloride 109 mmol/L (98-107); Est GFR (African American) 95.1 ml/min; Glucose 100 mg/dl (70-99); Magnesium 2.4 mg/dl (1.8-2.4); Potassium 3.7 mmol/L (3.5-5.1); Sodium 142 mmol/L (136-145)
[2021-05-02 16:06] LABS: Albumin Globulin Ratio 0.8 (0.9-2); Alkaline Phosphatase 109 U/L (45-117); Bilirubin,Total 0.5 mg/dl (0.2-1); Creatine Kinase 89 U/L (26-192); Globulin 3.6 gm/dl (2.5-4.0); Total Protein 6.6 gm/dl (6.4-8.2); Troponin I < 0.015 ng/ml (0-0.045)
--- NOTE | 2021-05-02 16:46 | CT Scan Report ---
CT SCAN OF THE ABDOMEN AND PELVIS WITHOUT IV CONTRAST CLINICAL HISTORY: Fall. COMPARISON STUDY: Abdominal CT dated 04/24/2021. TECHNIQUE: CT scan of the abdomen and pelvis is performed from the lung bases to the proximal femora. Images are reviewed in the axial, sagittal, and coronal planes. IV contrast was not administered for this examination. Note that the examination was performed in significantly suboptimal fashion withou t IV contrast. There is motion artifact, as well as streak artifact from the arms which could not be elevated above the abdomen. A dose lowering technique was utilized adhering to the principles of THUY Mcelroy. FINDINGS: Lung bases: The heart is mildly enlarged and without pericardial effusion. The coronary arteries are densely calcified. There is diminished attenuation of the cardiac blood pool as compared to the myoca rdium suggesting anemia. A small hiatal hernia is noted. Advanced emphysematous change is noted at th e lung bases. There are dependent airspace opacities. No pleural effusion or basilar pneumothorax is identified. Liver: The unenhanced liver is normal in size, contour, and attenuation. There is no intrahepatic jim iary ductal dilatation. Gallbladder: Unremarkable. Spleen: Normal in size and attenuation. Pancreas: The unenhanced pancreas is atrophic and grossly unremarkable. Adrenal glands: Unremarkable. Kidneys: The unenhanced kidneys are atrophic and without hydronephrosis. Question a punctate nonobstr ucting right renal calculus. There is no evidence of contour deforming renal mass lesion. Abdominal vasculature: The abdominal aorta is normal in course and caliber noting advanced atheroscle rotic calcification. Bowel: There is rectosigmoid fecal retention and moderate to severe constipation. No bowel obstructio n is seen. Discharge that likely resents a normal appendix is seen anterior to the sacrum on image #[id number]. Peritoneum: There is no intraperitoneal free air or abdominal ascites. Lymphadenopathy: None. Pelvic viscera: The bladder is markedly distended end appears thick walled. The uterus and adnexa are normal as visualized. Skeletal structures: The skeletal structures are osteopenic. There is advanced lumbosacral spondylosi s and scoliosis. Compression deformities of T11, T12, L1, and L2 are similar to the 04/24/2021 examina tion. The T11 and L2 fractures appear subacute. No lytic or blastic lesions are seen. There are heale d left pubic ring fractures. Postoperative change is suggested in the left proximal femur. There is c hronic posttraumatic deformity of the sacrum. Postoperative change and deformity is noted in the righ t proximal femur. Again seen are numerous age indeterminant and likely subacute bilateral rib fractur es. IMPRESSION: 1. Suboptimal examination without IV contrast. The examination is also significantly compromised by s treak and motion. 2. There is no evidence of solid organ injury in the abdomen or pelvis on this unenhanced and signifi cantly compromised examination. 3. Cardiomegaly and emphysema. 4. Dependent airspace opacities likely represent scarring/atelectasis. Correlate clinically for evide nce of a superimposed infectious/inflammatory pneumonitis. 5. Thoracolumbar compression deformities are similar in appearance to the 04/24/2021 examination. The T11 and L2 fractures appear subacute. Correlate for point tenderness. 6. Rectosigmoid fecal retention and moderate to severe constipation. 7. The bladder is markedly distended and appears thick walled. 8. Additional chronic findings as above. ACT 112: Negative or not required by law. Electronically signed by: Zeb Noble M.D. 05/02/2021 4:45 PM
--- NOTE | 2021-05-02 16:46 | CT Scan Report ---
MAXILLOFACIAL CT CT DOSE: 1465.06 mGy.cm HISTORY: fall TECHNIQUE: Multiaxial CT images of the maxillofacial region were performed and reformatted in the cor onal plane without the use of contrast. A dose lowering technique was utilized adhering to the princ iplryan of MARIANA. COMPARISON: CT facial bones 04/24/2021. FINDINGS: The visualized cervical spine, skull base, pterygoid plates, nasal bones, lamina papyracea, orbital floors, mandible, and zygomatic arches are intact. No acute fractures. Mild nasal bone defor mities are likely chronic. Mild motion artifact within the mandible. Left nasal septal deviation. The globes and retrobulbar fat are intact. Mild right supraorbital soft tissue swelling is again noted. IMPRESSION: No acute fractures within the maxillofacial region. ACT 112: Negative or not required by law. Electronically signed by: Fadi Shell M.D. 05/02/2021 4:45 PM
--- NOTE | 2021-05-02 16:52 | CT Scan Report ---
CT SCAN OF THE CERVICAL SPINE CLINICAL HISTORY: Fall. COMPARISON STUDY: CT of the cervical spine dated 04/24/2021. TECHNIQUE: CT scan of the cervical spine is performed from the skull base to the upper thoracic spine . Images are reviewed in the axial, sagittal, and coronal planes. IV contrast was not administered fo r this examination. A dose lowering technique was utilized adhering to the principles of ALARA. FINDINGS: Skeletal structures: The skeletal structures are osteopenic. There is no evidence of fracture or subl uxation involving the cervical spine. Vertebral body height is maintained. There is 3 mm anterolisthe sis at C3-C4. Minimal anterolisthesis is also noted at C4-C5. Alignment is otherwise preserved. Anter ior osteophytes are seen throughout. The odontoid process and lateral masses are intact. The atlantoa xial articulation is preserved noting advanced productive degenerative change. The spinous processes appear intact. There is moderate to advanced multilevel cervical spondylosis. Uncovertebral and facet arthropathy contribute to neural foraminal stenosis at most levels. Intervertebral discs: There is moderate to advanced disc space narrowing at all cervical levels betwe en C4-C5 and C6-C7. Mild narrowing is seen at the remaining cervical levels. Central canal: Posterior discussed by complexes at C5-C6 and C6-C7 may contribute to mild acquired co mpromise of the central canal. Soft tissues: The prevertebral and paraspinous soft tissues are within normal limits. There is advanc ed atherosclerotic calcification of the carotid bulbs. Calcified sialoliths are noted in the parotid glands. Calvarium: The visualized calvarium at the skull base appears intact. Brain parenchyma: Partially visualized brain parenchyma at the skull base is within normal limits not ing age-related involutional change. Sinuses and mastoids: The visualized paranasal sinuses are clear. The mastoid air cells are well pneu matized. Lung apices: Clear as visualized. IMPRESSION: 1. There is no evidence of fracture or subluxation involving the cervical spine. 2. Osteopenia and spondylotic change as above. ACT 112: Negative or not required by law. Electronically signed by: Zeb Noble M.D. 05/02/2021 4:50 PM
--- NOTE | 2021-05-02 16:55 | CT Scan Report ---
CT chest diagnostic wo con CT DOSE: HISTORY: fall TECHNIQUE: Multiaxial CT images of the chest were performed without contrast. A dose lowering techni que was utilized adhering to the principles of ALARA. COMPARISON: Chest CT 04/24/2021. FINDINGS: Subacute/healing inferior endplate T6 compression fracture and the T11 burst fracture are a gain noted. The T11 fracture demonstrates up to 4 mm of retropulsion with moderate central canal narr owing at this level. This remains unchanged. Healing nondisplaced right fifth through seventh transve rse process fractures are noted. Healing left posterior 11th rib fracture is again noted. There are m ultiple additional healing left-sided rib fractures, unchanged. No new fractures identified within th e chest. Heart is normal in size. No pleural or pericardial effusions. Normal caliber esophagus. Mode rate calcified plaque within the normal caliber thoracic aorta. Stable prominent mediastinal lymph no micha. Emphysema. No pneumothorax. Mild respiratory motion artifact. Bibasilar interstitial thickening persists. Partial opacification of the bilateral bronchi which have progressed. This could be due to recent aspiration. Patchy densities within the lower lobes posteriorly have slightly progressed. This could represent atelectasis or pneumonia. Stable 1.7 cm right lower lobe nodule on image 161. IMPRESSION: 1. Multiple subacute/healing fractures within the chest as described above. This is similar to the pr ior study. No new/acute fractures identified. 2. Slight progression of the partial opacification of the bilateral lower lobe bronchi and patchy den sities within the lower lobes posteriorly. This may represent an aspiration pneumonia. 3. Redemonstration of the 1.7 cm right lower lobe nodule. A neoplastic process remains the diagnosis of exclusion. 4. Emphysema. 5. Please refer to same day abdomen and pelvis CT for further evaluation of the abdominal structures. ACT 112: Negative or not required by law. Electronically signed by: Fadi Shell M.D. 05/02/2021 4:54 PM
--- NOTE | 2021-05-02 16:55 | CT Scan Report ---
CT SCAN OF THE BRAIN WITHOUT IV CONTRAST CLINICAL HISTORY: Fall. Change in mental status. COMPARISON STUDY: CT of the brain dated 04/24/2021. TECHNIQUE: Unenhanced axial CT scan of the brain is performed from the vertex to the skull base. A do se lowering technique was utilized adhering to the principles of ALARA. The examination is degraded b y motion artifact. FINDINGS: Brain parenchyma: There are age-related involutional changes noting moderate subcortical and periven tricular microangiopathic change. There is no hemorrhage, mass effect, or evidence of acute territori al ischemia by CT criteria. Colon-white matter differentiation is preserved. No extra-axial fluid juana ection is seen. Ventricles, sulci, cisterns: Prominent secondary to involutional change. Intracranial vasculature: There is atherosclerotic calcification of the cavernous carotid and vertebr al arteries. Calvarium: The skeletal structures are osteopenic. No depressed calvarial fracture is identified. Sinuses and mastoids: The paranasal sinuses are clear. The mastoid air cells are well pneumatized. Orbits: The bony orbits are grossly intact. There are bilateral ocular lens implants. Displacement of the left ocular lens is similar to previous. IMPRESSION: There is no hemorrhage, mass effect, or evidence of acute territorial ischemia by CT js armendariz. ACT 112: Negative or not required by law. Electronically signed by: Zeb Noble M.D. 05/02/2021 4:54 PM
--- NOTE | 2021-05-02 18:07 | History & Physical Report ---
Date of Service May 02, 2021 Assessment & Plan (1) Recurrent falls: Pt continues to fall at home even with home health services. Will need to consider SNF placement. - Consult PT/OT - Consult Case Management - Fall precautions - Decrease frequency of prn pain meds as may be contributing to waxing and waning mental status. (2) Adult failure to thrive: See plan for #1 - Consult nutrition for supplement recommendations (3) COPD (chronic obstructive pulmonary disease): - Continue outpatient inhaler - currently appears stable (4) Seizure disorder: - Continue levetiracetam (5) Restless leg syndrome: - Continue ropinirole (6) Rheumatoid arthritis: On chronic prednisone - will continue Pt seen and reviewed and with attending physician, Dr. Odell. Plan of care discussed and as outlined above. 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 Of note, pt was recently admitted to this facility 04/24-04/27/21 with fall with resultant compression fracture of spine and asymptomatic hypertensive urgency. Pt was discharged to home with home health services. She reports that she lives alone but that her son stops by every evening to help. Apparently today, the home health PT and pt's caregiver stopped by and found the patient on the floor incontinent of stool with the water in the bathroom running and spilling onto the floor. It was unclear how long that she had been on the floor. They were initially about to get her onto the chair and called EMS but she apparently slid back onto the floor. In the ED, pt was initially only oriented to self. However, when we saw pt for admission, she was oriented x 3 although it is unclear how reliable of a historian she is. She does report multiple falls at home. She is unsure if she has been taking her medications correctly. She reports pain all over but especially in her shoulders and back. Allergies Allergy/AdvReac Type Severity Reaction Status Date / Time pollen extracts Allergy Mild SEASONAL-ITCHY Verified 05/02/21 15:40 EYES,RUNNY NOSE Home Medications Medication Instructions Recorded Confirmed Type prednisone 5 mg PO DAILY 07/13/18 05/02/21 History ropinirole 0.25 mg PO HS 07/13/18 05/02/21 History levetiracetam 250 mg PO Q12H 09/24/20 05/02/21 History amitriptyline 25 mg PO HS 10/15/20 05/02/21 History famotidine 20 mg PO QAM 10/15/20 05/02/21 History polyethylene glycol 3350 [Miralax] 17 g PO DAILY PRN #14 ea 12/09/20 05/02/21 Rx Spiriva Respimat 2 puff INHALATION DAILY 12/24/20 05/02/21 History Cerovite Senior 1 tab PO DAILY 03/13/21 05/02/21 History docusate sodium [Stool Softener] 100 mg PO BID 03/13/21 05/02/21 History amlodipine 5 mg PO QAM 04/24/21 05/02/21 History atorvastatin 20 mg PO DAILY 04/24/21 05/02/21 History baclofen 10 mg PO TID 04/24/21 05/02/21 History lidocaine 1 patch TRANSDERMAL DAILY@1900 #30 04/27/21 05/02/21 Rx ea oxycodone 5 mg PO Q8H PRN #30 tab 04/27/21 05/02/21 Rx Past Med/Surg History Medical History Allergic rhinitis Anemia of chronic disease Anxiety Blind right eye COPD (chronic obstructive pulmonary disease) COVID-23 Sep 2020 DNR (do not resuscitate) Hip fracture Restless leg syndrome Rheumatoid arthritis Seizure disorder Surgical History Status post appendectomy Status post cataract extraction Status post exploratory laparotomy "x3 for adhesions" Status post hysterectomy Status post ovarian cystectomy Status post tonsillectomy Status post tubal ligation Family History Brother Cancer Brother Diabetes Sister Diabetes Sister Heart disease Sister Stroke Mother Heart disease Other Family history non-contributory Social History Smoking Status: Unknown if ever smoked Tobacco Type: Cigarettes Cigarettes Per Day: 2; Number of Years Since Quit: 29; Second Hand Exposure: No; Do You Dip or Chew Tobacco: No; Tobacco Cessation Education Requested by Patient: No Hx Alcohol Use: No Hx Substance Use: No Preferred Language: Kosovan Communication Ability: Unable Visual Impairment: Blindness Mortgage Closer Required: No Beliefs That Will Affect Care: None marital status: / Current Living Situation: Alone Current Living Situation Comment: Caregivers during the day, patient is alone at night. Other Information That Helps Us Care for You: No Feels Safe at Home: Yes Safety Concerns: Feels Safe At This Time Assistive Devices: Denture - Upper and Denture - Lower Review of Systems Review of Systems: All systems reviewed & are unremarkable except as noted in HPI & below Constitutional: + fatigue, + weakness and + anorexia; no fever and no chills Eyes: +chronic blindness in right eye Respiratory: no cough and no dyspnea Cardiovascular: no chest pain, no palpitations and no edema Gastrointestinal: no abdominal pain, no nausea, no vomiting and no diarrhea/loose stools Genitourinary: + urinary incontinence; no hematuria Musculoskeletal: as per Subjective / HPI; no back pain and no joint pain Integumentary: + wounds (multiple bruises and wounds due to falls) Neurologic: + falls and + generalized weakness Physical Exam Constitutional: + cachectic; no acute distress Eyes: right eye cloudy, left pupil reactive to light Neck: trachea midline Respiratory: no respiratory distress Auscultation: lungs clear to auscultation bilaterally; no rales, no rhonchi and no wheezes Cardiovascular: Rate/Rhythm: regular rate and regular rhythm Heart Sounds: no gallop, no murmur and no cardiac rub Gastrointestinal (Abdomen): Inspection/Auscultation: normal bowel sounds; abd omen not distended Percussion/Palpation: abdomen soft; abdomen nontender Musculoskeletal: Head/Neck/Chest: neck supple tenderness to touch over bilateral LE, bilateral shoulders Skin: multiple areas of ecchymosis on bilateral UE and LE.Sacral pressure ulcer ~state 2 Neurologic: moves all extremities Psychiatric: Orientation: alert and oriented x 3 Results & Data Results & Data ([place]) Vital Signs (Past 12 Hours) Vital Signs Temp Pulse Pulse Resp BP BP Pulse Ox 05/02/21 17:01 59 L 16 138/98 92 05/02/21 15:39 64 16 196/88 H 93 05/02/21 13:51 37.3 C 71 18 158/75 H 90 Laboratory Results Laboratory Results - last 24 hr 05/02/21 05/02/21 05/02/21 15:11 15:11 15:13 WBC 5.39 RBC 2.85 L Hgb 8.7 L Hct 27.2 L MCV 95.4 MCH 30.5 MCHC 32.0 RDW Std Deviation 59.4 H RDW Coeff of Mandeep 17.3 H Plt Count 180 MPV 8.8 Immature Gran % (Auto) 0.4 Neut % (Auto) 79.2 Lymph % (Auto) 10.0 Mckenzie % (Auto) 6.5 Eos % (Auto) 3.7 Baso % (Auto) 0.2 Neut # (Auto) 4.27 Lymph # (Auto) 0.54 L Mckenzie # (Auto) 0.35 Eos # (Auto) 0.20 Baso # (Auto) 0.01 Immature Gran # (Auto) 0.02 PT INR ABG pH ABG pCO2 ABG pO2 ABG HCO3 ABG O2 Saturation ABG Base Excess Alex Test Barometric Pressure Oxygen Given Sodium Potassium Chloride Carbon Dioxide Anion Gap BUN Creatinine Est Cr Clr Drug Dosing Est GFR ( Amer) Est GFR (Non-Af Amer) BUN/Creatinine Ratio Glucose Lactate Calcium Magnesium Total Bilirubin AST ALT Alkaline Phosphatase Total Creatine Kinase Troponin I Total Protein Albumin Globulin Albumin/Globulin Ratio TSH COVID-19 Eval Order Covid19 at [facility] SARS-CoV-2 (PCR) NEGATIVE 05/02/21 05/02/21 05/02/21 15:13 15:13 15:13 WBC RBC Hgb Hct MCV MCH MCHC RDW Std Deviation RDW Coeff of Mandeep Plt Count MPV Immature Gran % (Auto) Neut % (Auto) Lymph % (Auto) Mckenzie % (Auto) Eos % (Auto) Baso % (Auto) Neut # (Auto) Lymph # (Auto) Mckenzie # (Auto) Eos # (Auto) Baso # (Auto) Immature Gran # (Auto) PT 10.9 INR 1.1 ABG pH ABG pCO2 ABG pO2 ABG HCO3 ABG O2 Saturation ABG Base Excess Alex Test Barometric Pressure Oxygen Given Sodium 142 Potassium 3.7 Chloride 109 H Carbon Dioxide 28 Anion Gap 5.0 BUN 32 H Creatinine 0.68 Est Cr Clr Drug Dosing Not Reportable Est GFR ( Amer) 95.1 Est GFR (Non-Af Amer) 82.0 BUN/Creatinine Ratio 47.0 H Glucose 100 H Lactate 0.5 Calcium 7.9 L Magnesium 2.4 Total Bilirubin 0.5 AST 19 ALT 13 Alkaline Phosphatase 109 Total Creatine Kinase 89 Troponin I < 0.015 Total Protein 6.6 Albumin 3.0 L Globulin 3.6 Albumin/Globulin Ratio 0.8 L TSH 0.740 COVID-19 Eval Order SARS-CoV-2 (PCR) 05/02/21 15:13 WBC RBC Hgb Hct MCV MCH MCHC RDW Std Deviation RDW Coeff of Mandeep Plt Count MPV Immature Gran % (Auto) Neut % (Auto) Lymph % (Auto) Mckenzie % (Auto) Eos % (Auto) Baso % (Auto) Neut # (Auto) Lymph # (Auto) Mckenzie # (Auto) Eos # (Auto) Baso # (Auto) Immature Gran # (Auto) PT INR ABG pH 7.46 H ABG pCO2 39 ABG pO2 59 L ABG HCO3 27 H ABG O2 Saturation 91.7 ABG Base Excess 3.0 H Alex Test Pos Barometric Pressure 737.2 Oxygen Given ROOM AIR Sodium Potassium Chloride Carbon Dioxide Anion Gap BUN Creatinine Est Cr Clr Drug Dosing Est GFR ( Amer) Est GFR (Non-Af Amer) BUN/Creatinine Ratio Glucose Lactate Calcium Magnesium Total Bilirubin AST ALT Alkaline Phosphatase Total Creatine Kinase Troponin I Total Protein Albumin Globulin Albumin/Globulin Ratio TSH COVID-19 Eval Order SARS-CoV-2 (PCR) Diagnostic Findings CT Face 05/02/21 - IMPRESSION: No acute fractures within the maxillofacial region. CT Head 05/02/21 - IMPRESSION: There is no hemorrhage, mass effect, or evidence of acute territorial ischemia by CT criteria. Forearm X-ray 05/02/21 - IMPRESSION: Mild soft tissue swelling with no radiographic evidence of left forearm fracture. Chest X-ray 05/02/21 - IMPRESSION: 1. Nonspecific 19 mm right perihilar nodule. 2. Interstitial thickening, mild pulmonary vascular congestion versus interstitial infectious/inflammatory process. 3. Emphysema CT Chest 05/02/21 - IMPRESSION: 1. Multiple subacute/healing fractures within the chest as described above. This is similar to the prior study. No new/acute fractures identified. 2. Slight progression of the partial opacification of the bilateral lower lobe bronchi and patchy densities within the lower lobes posteriorly. This may represent an aspiration pneumonia. 3. Redemonstration of the 1.7 cm right lower lobe nodule. A neoplastic process remains the diagnosis of exclusion. 4. Emphysema. 5. Please refer to same day abdomen and pelvis CT for further evaluation of the abdominal structures. CT C-spine 05/02/21 - IMPRESSION: 1. There is no evidence of fracture or subluxation involving the cervical spine. 2. Osteopenia and spondylotic change as above. CT Abd/Pel 05/02/21 - IMPRESSION: 1. Suboptimal examination without IV contrast. The examination is also significantly compromised by streak and motion. 2. There is no evidence of solid organ injury in the abdomen or pelvis on this unenhanced and significantly compromised examination. 3. Cardiomegaly and emphysema. 4. Dependent airspace opacities likely represent scarring/atelectasis. Correlate clinically for evidence of a superimposed infect ious/inflammatory pneumonitis. 5. Thoracolumbar compression deformities are similar in appearance to the 04/24/2021 examination. The T11 and L2 fractures appear subacute. Correlate for point tenderness. 6. Rectosigmoid fecal retention and moderate to severe constipation. 7. The bladder is markedly distended and appears thick walled. 8. Additional chronic findings as above. Code Status & VTE Plan VTE Prophylaxis Plan VTE Prophylaxis will be ordered: Yes Supervising Physician Co-Signing Physician Notes Attending addendum The patient was seen and examined in the emergency room She was brought in by the EMS with a history of fall and inability to get up She was noted to have very lethargic and could not sit on a chair without falling She was noted to have change in mental status and remained very drowsy as per the EMS During my examination she was having pain in the right shoulder and pain in the legs but no other acute symptoms On examination Lying in bed without any acute distress Hemodynamically stable though the blood pressure and rate very high initially with systolic 216 Chestdecreased breath sounds without any wheezing or crackles HeartS1-S2 Abdomenbenign Extremitiesmultiple bruising with excoriation of the skin with erythema but without any definite cellulitis and/or wound CNSalert, awake and oriented x3, generally weak and lethargic and moving all the limbs equally Admission labs, EKG and imaging studies reviewed No acute fracture identified on the imaging study showed old fracture from prior fall Agree with assessment and plan as outlined above by LISA Gasca DR (1) Rheumatoid arthritis Rheumatoid arthritis location: unspecified site
[2021-05-02] MEDS ORDERED: hydrALAZINE HCL 20 MG/ML VIAL IV STA (19:36)
[2021-05-02] MEDS: oxyCODONE HCL IR 5 MG TAB (IMMEDIATE RELEASE) PO PRN (19:55)
[2021-05-02] MEDS ORDERED: POLYETHYLENE (MIRALAX) 17 GM PACK PO PRN (22:15)
[2021-05-02] MEDS: ACETAMINOPHEN 325 MG TAB PO PRN (23:17)
[2021-05-02] MEDS: AMITRIPTYLINE HCL 25 MG TAB PO SCH (23:18)
[2021-05-02] MEDS: BACLOFEN 10 MG TAB PO SCH (23:19)
[2021-05-02] MEDS: levETIRAcetam 250 MG TAB PO SCH (23:20)
[2021-05-02] MEDS: DOCUSATE SODIUM 100 MG CAP PO SCH (23:20)
[2021-05-02] MEDS: rOPINIRole HCL 0.25 MG TABLET PO SCH (23:20)
[2021-05-03] MEDS: amLODIPine BESYLATE 5 MG TAB PO SCH (09:17)
[2021-05-03] MEDS: ATORVASTATIN 20 MG TAB PO SCH (09:17)
[2021-05-03] MEDS: CEROVITE ADV FORMULA TAB PO SCH (09:17)
[2021-05-03] MEDS: FAMOTIDINE 20 MG TAB PO SCH (09:17)
[2021-05-03] MEDS: levETIRAcetam 250 MG TAB PO SCH ×2 (09:18→19:49)
[2021-05-03] MEDS: BACLOFEN 10 MG TAB PO SCH ×3 (09:18→19:50)
[2021-05-03] MEDS: DOCUSATE SODIUM 100 MG CAP PO SCH ×2 (09:18→19:50)
[2021-05-03] MEDS: predniSONE 5 MG TAB PO SCH (09:18)
[2021-05-03] MEDS: UMECLIDINIUM BROMIDE 62.5MCG/BLISTER 7 PUFFS/INHALER INH SCH (09:18)
[2021-05-03 11:28] LABS: Bacteria Urine Automated Negative (Negative); Bilirubin Urine Negative (Negative); Blood Urine 2+ (Negative); Color Urine Yellow; Glucose Urine UA Negative (Negative); Ketones Urine 2+ (Negative); Leukocyte Esterase Urine 3+ (Negative); Nitrite Urine Negative (Negative); Protein Urine 2+ (Negative); RBC Urine Automated >30 /hpf (0-4); Specific Gravity Urine 1.014 (1.000-1.030); Urobilinogen Urine Negative (Negative); WBC Urine Automated >30 /hpf (0-5)
[2021-05-03 11:38] LABS: Appearance Urine Cloudy (Clear)
--- NOTE | 2021-05-03 12:53 | Hospitalist Progress Note ---
Date of Service May 03, 2021 Assessment & Plan (1) Recurrent falls: Pt continues to fall at home even with home health services. Will need to consider SNF placement. -No signs and/or symptoms of infection and no new fracture from the fall -Reviewed all the imaging studies that was done during this admission - Consult PT/OT-recommended rehab - Consult Case Management - Fall precautions - Decrease frequency of prn pain meds as may be contributing to waxing and waning mental status. Pleasantly confused before coming to the emergency room Has been on narcotic pain medications which may be contributing We will decrease steroid dose of pain medications Advised to avoid narcotic pain medications for pain Has sacral decubiti-stage II We will get wound care consult (2) Adult failure to thrive: Underweight with BMI of 12.9kg/m Consult nutrition for supplement recommendations (3) COPD (chronic obstructive pulmonary disease): Continue outpatient inhaler - currently appears stable (4) Seizure disorder: Continue levetiracetam (5) Restless leg syndrome: - Continue ropinirole (6) Rheumatoid arthritis: On chronic prednisone - will continue Code status: DNR/DNI DVT prophylaxis: SCDs Discussed with the son in detail Admission and Anticipated Discharge Date Admission Date: May 02, 2021 Subjective 05/03/2021 The patient was seen and examined in medical telemetry unit She was admitted yesterday with fall and acute confusion She did not have any new fracture from the fall and complains to have some pain in the right shoulder and legs Denies any other symptoms She has had physical therapy evaluation and recommended to go for rehab Review of Systems Review of Systems: All systems reviewed and are unremarkable as noted below Physical Exam Physical Exam: Lying in bed without any acute distress Constitutional: + ill appearing, + thin and + cachectic; no acute distress Eyes: Is blind to one eye ENMT: external ear and nose normal, oropharynx normal Neck: trachea midline, no thyromegaly Respiratory: no respiratory distress Auscultation: + diminished lung sounds; no rales, no rhonchi and no wheezes Cardiovascular: Rate/Rhythm: regular rate and regular rhythm Heart Sounds: no murmur Extremities: no edema Gastrointestinal (Abdomen): Inspection/Auscultation: normal bowel sounds; abdomen not distended Percussion/Palpation: abdomen soft; abdomen nontender Musculoskeletal: Head/Neck/Chest: neck supple No acute arthritis but right shoulder joint movement is painful. Painful legs without any evidence of acute arthritis Skin: + wound (Sacral decubiti of stage II) Has multiple small wounds of different ages in lower extremities. Neurologic: moves all extremities Alert, awake and oriented x3. Generally very weak and lethargic. Moving all the limbs Psychiatric: Orientation: alert and oriented x 3 Lymphatic: no cervical or axillary lymphadenopathy Results & Data Results & Data ([facility]) Vital Signs (Past 12 Hours) Vital Signs Temp Pulse Resp BP Pulse Ox 05/03/21 08:00 37.1 C 88 16 148/54 H 92 Laboratory Results Short CBC 05/02/21 Range/Units 15:13 WBC 5.39 (4.8-10.8) K/uL Hgb 8.7 L (12.0-16.0) g/dL Hct 27.2 L (37-47) % Plt Count 180 (130-400) K/uL BMP 05/02/21 15:13 Sodium 142 Potassium 3.7 Chloride 109 H Carbon Dioxide 28 BUN 32 H Creatinine 0.68 Glucose 100 H Calcium 7.9 L Cardiac Enzymes 05/02/21 Range/Units 15:13 Total Creatine Kinase 89 (26-192) U/L Troponin I < 0.015 (0-0.045) ng/ml Liver Function 05/02/21 Range/Units 15:13 Total Bilirubin 0.5 (0.2-1) mg/dl AST 19 (15-37) U/L ALT 13 (12-78) U/L Alkaline Phosphatase 109 (45-117) U/L Albumin 3.0 L (3.4-5.0) gm/dl Urine 05/03/21 Range/Units 11:08 Urine Color Yellow Urine Appearance Cloudy A (Clear) Urine pH 7.0 (4.5-7.5) Ur Specific [place]lett 1.014 (1.000-1.030) Urine Protein 2+ H (Negative) Urine Glucose (UA) Negative (Negative) Medications Administered Current Inpatient Medications Acetaminophen (Acetaminophen 325 Mg Tab) 650 mg PO Q4H PRN PRN Reason: pain/fever Stop: 06/01/21 22:14 Last Admin: 05/02/21 23:17 Dose: 650 mg Documented by: Amitriptyline HCl (Amitriptyline Hcl 25 Mg Tab) 25 mg PO HS YOLANDA Stop: 06/01/21 22:14 Last Admin: 05/02/21 23:18 Dose: 25 mg Documented by: Amlodipine Besylate (Amlodipine Besylate 5 Mg Tab) 5 mg PO QAM [facility] Stop: 06/02/21 08:59 Last Admin: 05/03/21 09:17 Dose: 5 mg Documented by: Atorvastatin Calcium (Atorvastatin 20 Mg Tab) 20 mg PO DAILY YOLANDA Stop: 06/02/21 08:59 Last Admin: 05/03/21 09:17 Dose: 20 mg Documented by: Baclofen (Baclofen 10 Mg Tab) 10 mg PO TID YOLANDA Stop: 06/01/21 22:14 Last Admin: 05/03/21 09:18 Dose: 10 mg Documented by: Docusate Sodium (Docusate Sodium 100 Mg Cap) 100 mg PO BID [facility] Stop: 06/01/21 22:14 Last Admin: 05/03/21 09:18 Dose: 100 mg Documented by: Famotidine (Famotidine 20 Mg Tab) 20 mg PO QAM [facility] Stop: 06/02/21 08:59 Last Admin: 05/03/21 09:17 Dose: 20 mg Documented by: Levetiracetam (Levetiracetam 250 Mg Tab) 250 mg PO BID [facility] Stop: 06/01/21 22:14 Last Admin: 05/03/21 09:18 Dose: 250 mg Documented by: Lidocaine (Lidocaine 5% 1 Patch) 1 patch TD DAILY@1900 [facility] Stop: 06/02/21 18:59 Miscellaneous (Remove Lidoderm Patch) 1 ea N/A DAILY@0700 [facility] Stop: 06/02/21 06:59 Last Admin: 05/03/21 07:59 Dose: Not Given Documented by: Multivitamins/Minerals (Cerovite Adv Formula Tab) 1 tab PO DAILY [facility] Stop: 06/02/21 08:59 Last Admin: 05/03/21 09:17 Dose: 1 tab Documented by: Oxycodone HCl (Oxycodone Hcl Ir 5 Mg Tab (Immediate Release)) 2.5 mg PO Q12H PRN PRN Reason: Pain Stop: 05/16/21 19:44 Last Admin: 05/02/21 19:55 Dose: 2.5 mg Documented by: Polyethylene Glycol (Polyethylene (Miralax) 17 Gm Pack) 17 gm PO DAILY PRN PRN Reason: constipation Stop: 06/01/21 22:14 Prednisone (Prednisone 5 Mg Tab) 5 mg PO DAILY YOLANDA Stop: 06/02/21 08:59 Last Admin: 05/03/21 09:18 Dose: 5 mg Documented by: Ropinirole HCl (Ropinirole Hcl 0.25 Mg Tablet) 0.25 mg PO HS YOLANDA Stop: 06/01/21 22:14 Last Admin: 05/02/21 23:20 Dose: 0.25 mg Documented by: Umeclidinium [place] (Umeclidinium [place] 62.5mcg/Blister 7 Puffs/Inhaler) 1 puffs INH DAILY YOLANDA Stop: 06/02/21 08:59 Last Admin: 05/03/21 09:18 Dose: 1 puffs Documented by: (1) Rheumatoid arthritis Rheumatoid arthritis location: unspecified site
--- NOTE | 2021-05-03 16:02 | Electrocardiogram Report ---
Test Reason : Blood Pressure : / mmHG Vent. Rate : 066 BPM Atrial Rate : 066 BPM P-R Int : 146 ms QRS Dur : 092 ms QT Int : 426 ms P-R-T Axes : 077 -45 087 degrees QTc Int : 446 ms Normal sinus rhythm with sinus arrhythmia Left axis deviation Abnormal ECG When compared with ECG of 24-APR-2021 17:22, No significant change was found Confirmed by Regan Victor ([id number]) on 05/03/2021 4:02:19 PM Referred By: REFERRED SELF Confirmed By:Regan Victor
[2021-05-03] MEDS: LIDOCAINE 5% 1 PATCH TD SCH (19:47)
[2021-05-03] MEDS: AMITRIPTYLINE HCL 25 MG TAB PO SCH (19:48)
[2021-05-03] MEDS: rOPINIRole HCL 0.25 MG TABLET PO SCH (19:49)
[2021-05-03] MEDS: oxyCODONE HCL IR 5 MG TAB (IMMEDIATE RELEASE) PO PRN (21:33)
[2021-05-04] MEDS: predniSONE 5 MG TAB PO SCH (08:40)
[2021-05-04] MEDS: BACLOFEN 10 MG TAB PO SCH ×3 (08:40→20:36)
[2021-05-04] MEDS: levETIRAcetam 250 MG TAB PO SCH ×2 (08:40→20:36)
[2021-05-04] MEDS: UMECLIDINIUM BROMIDE 62.5MCG/BLISTER 7 PUFFS/INHALER INH SCH (08:40)
[2021-05-04] MEDS: ATORVASTATIN 20 MG TAB PO SCH (08:41)
[2021-05-04] MEDS: CEROVITE ADV FORMULA TAB PO SCH (08:41)
[2021-05-04] MEDS: amLODIPine BESYLATE 5 MG TAB PO SCH (08:41)
[2021-05-04] MEDS: FAMOTIDINE 20 MG TAB PO SCH (08:41)
[2021-05-04] MEDS: DOCUSATE SODIUM 100 MG CAP PO SCH ×2 (08:42→20:36)
[2021-05-04] MEDS ORDERED: levoFLOXacin/D5W 500 MG/100 ML BAG IV ONE (10:00)
[2021-05-04 10:07] LABS: Creatinine Clr Calc Pharmacy 30.6 ml/min; Est GFR (African American) 80.1 ml/min; Est GFR (Non-African American) 69.1 ml/min
--- NOTE | 2021-05-04 10:52 | Hospitalist Progress Note ---
Date of Service May 04, 2021 Assessment & Plan (1) Recurrent falls: Patient lives alone which is likely contributing to her recurrent falls. She does not appear capable to take care of herself, especially concerning is the fact she is on sedating medication such as oxycodone and baclofen regularly. When she presented, she was confused, possibly related to a toxic encephalopathy versus metabolic encephalopathy from infection. Continue with plan below and PT/OT evaluations. SNF placement is strongly recommended. (2) UTI (urinary tract infection): Possible bladder infection with reported urinary symptoms recently. Levaquin started empirically pending culture results and clinical improvement. (3) Pneumonia: Poor historian, no martita coughing or worsening shortness of breath, fevers or chills noted. She is immunosuppressed on chronic prednisone, however. There was a question of aspiration and she was evaluated by speech therapy yesterday. She is known to speech therapy services having participated in a video swallow study in January of this year. She did not aspirate but has esophageal dysfunction that is known. There is questionable compliance with diet modifications that were recommended. Giving course of Levaquin at this time to cover for both pulmonary and urinary source of infection pending further culture results and clinical improvement. (4) COPD (chronic obstructive pulmonary disease): Chronic, appears stable. No wheezing on exam. Patient continues to smoke. Cont Incruse Ellipta. (5) Decubitus ulcer of sacral region, stage 2: POA, wound care consult. Continue to remain off this area is much as possible. (6) Severe malnutrition: Poor p.o. intake and overall self-care. Nutrition saw patient and is initiating boost breeze twice daily. We will continue to monitor bowel regularity, skin integrity and daily weights. We will add daily thiamine. (7) Seizure disorder: Continue levetiracetam per home medications. (8) Rheumatoid arthritis: On chronic prednisone - will continue (9) Restless leg syndrome: - Continue ropinirole per home medications. (10) DVT prophylaxis: Start heparin for DVT prophylaxis DNR/DNI Dispo-recommend placement. Apprec PT/OT recs and CM assistance. Brenda Mallory DO [facility] Hospitalist Admission and Anticipated Discharge Date Admission Date: May 02, 2021 Subjective The patient presented to the ER after a fall at home. She has recurrent falls weakness and confusion at home. She reports living by herself for the most part with her son helping only occasionally. She does have home health nursing but this help is limited. Work-up reveals questionable UTI and chest x-ray consistent with possible pneumonia. The patient states she is prone to pneumonia but denies any coughing, recent shortness of breath, fevers or chills. She is a poor historian with very poor insight into her health issues. She reports some urinary symptoms that are vague. She reports that her right leg continues to give out on her. She is cachectic appearing but reports that she is eating well at home. She denies self administering medications including her narcotics stating that her son sets them out for her. She takes none oxycodone and a "muscle relaxer" at home, which I am assuming is baclofen. She appears oriented today and we discussed rehab options. She is open to this as she states "I cannot really be at home alone anymore." Today she denies any cough, fevers, chills, chest pain, shortness of breath. She does have some discomfort in her abdomen, but states she has to urinate. She did have an episode of urinary incontinence during the exam. Review of Systems Review of Systems: All systems reviewed & are unremarkable except as noted in Subjective Physical Exam Physical Exam: CONSTITUTIONAL: thin, frail, vitals as above, generally NAD EYES: normal conjunctivae, no scleral icterus ENT: external ear and nose normal, MMM NECK: trachea midline RESPIRATORY: coarse rhonchi at bases bilaterally,no wheezing or rales, normal respiratory effort. Some junky cough present during the exam. CARDIOVASCULAR: regular rate and rhythm, S1 and 2 heard without murmurs, gallops or rubs, no JVD, no peripheral edema GASTROINTESTINAL: normal bowel sounds, soft, nontender but limited exam as she states there is pressure as though she still needs to pee, nondistended MUSCULOSKELETAL: Generalized weakness, normocephalic head with some ecchymosis seen on the lateral right brow. SKIN: warm and dry, multiple prior abrasions, cuts and other sequelae of recent falls present on extremities. NEUROLOGIC: CN 2-12 grossly intact, normal cognition, normal speech, no gross focal deficits. PSYCHIATRIC: alert cooperative and oriented to person, place and time. Results & Data Results & Data ([facility]) Vital Signs (Past 12 Hours) Vital Signs Temp Pulse Resp BP Pulse Ox 05/04/21 08:12 37.1 C 73 19 115/48 L 90 05/03/21 23:44 37.4 C 77 18 137/66 90 Laboratory Results BMP 05/04/21 09:35 Creatinine 0.80 Urine 05/03/21 Range/Units 11:08 Urine Color Yellow Urine Appearance Cloudy A (Clear) Urine pH 7.0 (4.5-7.5) Ur Specific [place] 1.014 (1.000-1.030) Urine Protein 2+ H (Negative) Urine Glucose (UA) Negative (Negative) Diagnostic Findings CT chest diagnostic wo con CT DOSE: HISTORY: fall TECHNIQUE: Multiaxial CT images of the chest were performed without contrast. A dose lowering technique was utilized adhering to the principles of ALARA. COMPARISON: Chest CT 04/24/2021. FINDINGS: Subacute/healing inferior endplate T6 compression fracture and the T11 burst fracture are again noted. The T11 fracture demonstrates up to 4 mm of retropulsion with moderate central canal narrowing at this level. This remains unchanged. Healing nondisplaced right fifth through seventh transverse process fractures are noted. Healing left posterior 11th rib fracture is again noted. There are multiple additional healing left-sided rib fractures, unchanged. No new fractures identified within the chest. Heart is normal in size. No pleural or pericardial effusions. Normal caliber esophagus. Moderate calcified plaque wi thin the normal caliber thoracic aorta. Stable prominent mediastinal lymph nodes. Emphysema. No pneumothorax. Mild respiratory motion artifact. Bibasilar interstitial thickening persists. Partial opacification of the bilateral bronchi which have progressed. This could be due to recent aspiration. Patchy densities within the lower lobes posteriorly have slightly progressed. This could represent atelectasis or pneumonia. Stable 1.7 cm right lower lobe nodule on image 161. IMPRESSION: 1. Multiple subacute/healing fractures within the chest as described above. This is similar to the prior study. No new/acute fractures identified. 2. Slight progression of the partial opacification of the bilateral lower lobe bronchi and patchy densities within the lower lobes posteriorly. This may represent an aspiration pneumonia. 3. Redemonstration of the 1.7 cm right lower lobe nodule. A neoplastic process remains the diagnosis of exclusion. 4. Emphysema. 5. Please refer to same day abdomen and pelvis CT for further evaluation of the abdominal structures. Medications Administered Current Inpatient Medications Acetaminophen (Acetaminophen 325 Mg Tab) 650 mg PO Q4H PRN PRN Reason: pain/fever Stop: 06/01/21 22:14 Last Admin: 05/02/21 23:17 Dose: 650 mg Documented by: Amitriptyline HCl (Amitriptyline Hcl 25 Mg Tab) 25 mg PO HS [facility] Stop: 06/01/21 22:14 Last Admin: 05/03/21 19:48 Dose: 25 mg Documented by: Amlodipine Besylate (Amlodipine Besylate 5 Mg Tab) 5 mg PO QAM [facility] Stop: 06/02/21 08:59 Last Admin: 05/04/21 08:41 Dose: 5 mg Documented by: Atorvastatin Calcium (Atorvastatin 20 Mg Tab) 20 mg PO DAILY [facility] Stop: 06/02/21 08:59 Last Admin: 05/04/21 08:41 Dose: 20 mg Documented by: Baclofen (Baclofen 10 Mg Tab) 10 mg PO TID [facility] Stop: 06/01/21 22:14 Last Admin: 05/04/21 08:40 Dose: 10 mg Documented by: Docusate Sodium (Docusate Sodium 100 Mg Cap) 100 mg PO BID [facility] Stop: 06/01/21 22:14 Last Admin: 05/04/21 08:42 Dose: 100 mg Documented by: Famotidine (Famotidine 20 Mg Tab) 20 mg PO QAM [facility] Stop: 06/02/21 08:59 Last Admin: 05/04/21 08:41 Dose: 20 mg Documented by: Levofloxacin/Dextrose (Levaquin/D5w) 500 mg in 100 mls @ 100 mls/hr IV ONE ONE Stop: 05/04/21 10:59 Levetiracetam (Levetiracetam 250 Mg Tab) 250 mg PO BID [facility] Stop: 06/01/21 22:14 Last Admin: 05/04/21 08:40 Dose: 250 mg Documented by: Lidocaine (Lidocaine 5% 1 Patch) 1 patch TD DAILY@1900 [facility] Stop: 06/02/21 18:59 Last Admin: 05/03/21 19:47 Dose: 1 patch Documented by: Miscellaneous (Remove Lidoderm Patch) 1 ea N/A DAILY@0700 [facility] Stop: 06/02/21 06:59 Last Admin: 05/04/21 08:42 Dose: 1 ea Documented by: Miscellaneous Information (Levofloxacin Consult Active) 1 ea N/A UD PRN PRN Reason: Consult Stop: 06/03/21 09:24 Multivitamins/Minerals (Cerovite Adv Formula Tab) 1 tab PO DAILY [facility]OLANDA Stop: 06/02/21 08:59 Last Admin: 05/04/21 08:41 Dose: 1 tab Documented by: Oxycodone HCl (Oxycodone Hcl Ir 5 Mg Tab (Immediate Release)) 2.5 mg PO Q12H PRN PRN Reason: Pain Stop: 05/16/21 19:44 Last Admin: 05/03/21 21:33 Dose: 2.5 mg Documented by: Polyethylene Glycol (Polyethylene (Miralax) 17 Gm Pack) 17 gm PO DAILY PRN PRN Reason: constipation Stop: 06/01/21 22:14 Prednisone (Prednisone 5 Mg Tab) 5 mg PO DAILY YOLANDA Stop: 06/02/21 08:59 Last Admin: 05/04/21 08:40 Dose: 5 mg Documented by: Ropinirole HCl (Ropinirole Hcl 0.25 Mg Tablet) 0.25 mg PO HS YOLANDA Stop: 06/01/21 22:14 Last Admin: 05/03/21 19:49 Dose: 0.25 mg Documented by: Umeclidinium [place] (Umeclidinium [place] 62.5mcg/Blister 7 Puffs/Inhaler) 1 puffs INH DAILY [facility]OLANDA Stop: 06/02/21 08:59 Last Admin: 05/04/21 08:40 Dose: 1 puffs Documented by: (1) Rheumatoid arthritis Rheumatoid arthritis location: unspecified site
[2021-05-04] MEDS ORDERED: VANCOMYCIN CONSULT ACTIVE PRN (14:25)
[2021-05-04] MEDS ORDERED: VANCOMYCIN HCL 1,000 MG/270 ML BAG IV STA (14:25)
[2021-05-04] MEDS ORDERED: CONSULT PHARMACY STA (14:25)
[2021-05-04] MEDS ORDERED: VANCOMYCIN HCL 750 MG in SODIUM CHLORIDE 0.9% 250 ML IV STA (14:31)
[2021-05-04] MEDS: THIAMINE HCL 100 MG TAB PO SCH (14:35)
--- NOTE | 2021-05-04 14:41 | Pharmacy Report ---
Pharmacy Abx Initial Consult - Date of Service May 04, 2021 - Pharmacy Dosing Scope Date of Consult: 05/04/21 Consultation requested by: Dr. Mallory Pharmacy is consulted to initiate Vancomycin + Levaquin IV dosing therapy, order appropriate labs and adjust drug dose/frequency. - Subjective The patient is a 80 year old F admitted on 05/02/21 17:56. - Objective Height: 4 ft 11 in Weight: 35.1 kg Vital Signs (Past 12hrs): Vital Signs Temp Pulse Resp BP Pulse Ox 05/04/21 08:12 37.1 C 73 19 115/48 L 90 Lab Results (24hrs): Laboratory Tests (24 Hours) 05/04/21 09:35 Creatinine 0.80 Est Cr Clr Drug Dosing 30.6 Micro Results: 05/02/21 15:16 Anaerobic Blood Culture - Final Blood - Assessment & Plan Assessment 80 year old F initiated on Vancomycin + Levaquin for decub ulcer, ?pneumonia, UTI Pt does not meet criteria for AUC Vancomycin dosing based on low body weight. Will use population based PK estimates/calculations Plan Vancomycin IV * Estimated PK Parameters: Vd 0.7 L/kg, Mehul 0.030 hr-1, t1/2 23 hr * Loading dose: 750 mg (21 mg/kg) * Maintenance dose: 500 mg IV (14 mg/kg) every 12 hours * Goal trough level for SST,PNA,UTI : 15 to 20 mcg/mL Levaquin * Provider ordered 500mg as initial dose. Levaquin requires dose adjustment for crcl < 50. * Change to 500mg IV x 1 then 250mg IV Q24hrs for crcl ~30 Pharmacy will continue to follow and will adjust dose/frequency as necessary. Thank you.
[2021-05-04] MEDS: LIDOCAINE 5% 1 PATCH TD SCH (19:19)
[2021-05-04] MEDS: AMITRIPTYLINE HCL 25 MG TAB PO SCH (20:36)
[2021-05-04] MEDS: rOPINIRole HCL 0.25 MG TABLET PO SCH (20:36)
[2021-05-04] MEDS: HEPARIN SOD 5,000 UNIT/0.5 ML VIAL SQ SCH (20:37)
[2021-05-05] MEDS: oxyCODONE HCL IR 5 MG TAB (IMMEDIATE RELEASE) PO PRN ×2 (00:29→20:22)
[2021-05-05 07:06] LABS: Hematocrit (blood only) 26.9 % (37-47); Hemoglobin 8.6 g/dL (12.0-16.0); Mean Corpuscular Hemoglobin 30.1 pg (25-34); Mean Corpuscular Volume 94.1 fL (80-100); Mean Platelet Volume 8.6 fL (7.4-10.4); Platelet Count 204 K/uL (130-400); RDW Coefficient of Variation 17.3 % (11.5-14.5); RDW Standard Deviation 59.2 fL (36.4-46.3); Red Blood Count 2.86 M/uL (4.2-5.4); White Blood Count 5.18 K/uL (4.8-10.8)
[2021-05-05 07:39] LABS: BUN Creatinine Ratio 24.6 (10-20); Calcium 8.1 mg/dl (8.5-10.1); Creatinine Clr Calc Pharmacy 42.9 ml/min; Est GFR (African American) 100.8 ml/min; Est GFR (Non-African American) 86.9 ml/min; Magnesium 1.8 mg/dl (1.8-2.4); Phosphorus 2.6 mg/dl (2.5-4.9); Potassium 3.2 mmol/L (3.5-5.1)
[2021-05-05] MEDS: levoFLOXacin/D5W 250 MG/50 ML BAG IV SCH (08:19)
[2021-05-05] MEDS: UMECLIDINIUM BROMIDE 62.5MCG/BLISTER 7 PUFFS/INHALER INH SCH (08:23)
[2021-05-05] MEDS: THIAMINE HCL 100 MG TAB PO SCH (08:24)
[2021-05-05] MEDS: BACLOFEN 10 MG TAB PO SCH ×3 (08:24→20:16)
[2021-05-05] MEDS: DOCUSATE SODIUM 100 MG CAP PO SCH ×2 (08:24→20:16)
[2021-05-05] MEDS: levETIRAcetam 250 MG TAB PO SCH ×2 (08:24→20:16)
[2021-05-05] MEDS: CEROVITE ADV FORMULA TAB PO SCH (08:24)
[2021-05-05] MEDS: amLODIPine BESYLATE 5 MG TAB PO SCH (08:24)
[2021-05-05] MEDS: FAMOTIDINE 20 MG TAB PO SCH (08:24)
[2021-05-05] MEDS: predniSONE 5 MG TAB PO SCH (08:24)
[2021-05-05] MEDS: ATORVASTATIN 20 MG TAB PO SCH (08:24)
[2021-05-05] MEDS: HEPARIN SOD 5,000 UNIT/0.5 ML VIAL SQ SCH ×2 (08:25→20:16)
[2021-05-05] MEDS: DAPTOmycin 275 MG in SYRINGE 0 ML IV SCH (10:59)
[2021-05-05] MEDS ORDERED: VANCOMYCIN HCL 500 MG in SODIUM CHLORIDE 0.9% 250 ML IV SCH (12:00)
--- NOTE | 2021-05-05 15:25 | Hospitalist Progress Note ---
Date of Service May 05, 2021 Assessment & Plan (1) Recurrent falls: Patient lives alone, is physically deconditioned with multiple recent hospitalizations, and is on narcotics and muscle relaxers all of which are likely contributing to her recurrent falls. She does not appear capable to take care of herself. SNF placement is strongly recommended. (2) UTI (urinary tract infection): Vancomycin sensitive Enterococcus in the urine. She is currently on daptomycin which covers this bug. Continue this for now pending final culture results in the wound and blood. (3) Pneumonia: Poor historian, no martita coughing or worsening shortness of breath, fevers or chills noted. She is immunosuppressed on chronic prednisone, however. There was a question of aspiration and she was evaluated by speech therapy this admission. She is known to speech therapy services having participated in a video swallow study in January of this year. She did not aspirate but has esophageal dysfunction that is known. There is questionable compliance with diet modifications that were recommended. Giving course of Levaquin at this time to cover empirically for pneumonia. She is clinically improved overall. (4) COPD (chronic obstructive pulmonary disease): Chronic, appears stable. No wheezing on exam. Patient continues to smoke. Cont Incruse Ellipta. (5) Decubitus ulcer of sacral region, stage 2: This area was closed per wound care nurse. No open ulcer. (6) Severe malnutrition: Poor p.o. intake and overall self-care. Nutrition saw patient and is initiating boost breeze twice daily. We will continue to monitor bowel regularity, skin integrity and daily weights. Cont daily thiamine. (7) Seizure disorder: Continue levetiracetam per home medications. (8) Rheumatoid arthritis: On chronic prednisone - will continue (9) Restless leg syndrome: - Continue ropinirole per home medications. (10) DVT prophylaxis: Heparin DNR/DNI Dispo-recommend placement. Apprec PT/OT recs and CM assistance. Brenda Mallory DO [facility] Hospitalist Admission and Anticipated Discharge Date Admission Date: May 02, 2021 Subjective The patient presented to the ER after a fall at home. She has recurrent falls weakness and confusion at home. She reports living by herself for the most part with her son helping only occasionally. She does have home health nursing but this help is limited. Work-up reveals questionable UTI and chest x-ray consistent with possible pneumonia. 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 Overall patient reveals better on antibiotics today. She still reports some pain in her leg around her wound. Cultures are revealing staph species in the wound and vancomycin sensitive Enterococcus in the urine. She remains afebrile, denies cough or shortness of breath that is new or worse than normal. Still has significant weakness. Review of Systems Review of Systems: All systems reviewed & are unremarkable except as noted in Subjective Physical Exam Physical Exam: CONSTITUTIONAL: thin, frail, vitals as above, generally NAD EYES: normal conjunctivae, no scleral icterus ENT: external ear and nose normal, MMM NECK: trachea midline RESPIRATORY: Clear to auscultation bilaterally,no wheezing or rales, normal respiratory effort. CARDIOVASCULAR: regular rate and rhythm, S1 and 2 heard without murmurs, gallops or rubs, no JVD, no peripheral edema GASTROINTESTINAL: normal bowel sounds, soft, nontender but limited exam as she states there is pressure as though she still needs to pee, nondistended MUSCULOSKELETAL: Generalized weakness, normocephalic head with some ecchymosis seen on the lateral right brow. SKIN: warm and dry, multiple prior abrasions, cuts and other sequelae of recent falls present on extremities. NEUROLOGIC: CN 2-12 grossly intact, normal cognition, normal speech, no gross focal deficits. PSYCHIATRIC: alert cooperative and oriented to person, place and time. Results & Data Results & Data ([facility]) Vital Signs (Past 12 Hours) Vital Signs Temp Pulse Resp BP Pulse Ox 05/05/21 07:22 36.8 C 85 16 142/65 H 95 Laboratory Results Short CBC 05/05/21 Range/Units 06:35 WBC 5.18 (4.8-10.8) K/uL Hgb 8.6 L (12.0-16.0) g/dL Hct 26.9 L (37-47) % Plt Count 204 (130-400) K/uL BMP 05/05/21 06:35 Sodium 136 Potassium 3.2 L Chloride 106 Carbon Dioxide 27 BUN 14 Creatinine 0.57 L Glucose 122 H Calcium 8.1 L Medications Administered Current Inpatient Medications Acetaminophen (Acetaminophen 325 Mg Tab) 650 mg PO Q4H PRN PRN Reason: pain/fever Stop: 06/01/21 22:14 Last Admin: 05/02/21 23:17 Dose: 650 mg Documented by: Amitriptyline HCl (Amitriptyline Hcl 25 Mg Tab) 25 mg PO HS [facility] Stop: 06/01/21 22:14 Last Admin: 05/04/21 20:36 Dose: 25 mg Documented by: Amlodipine Besylate (Amlodipine Besylate 5 Mg Tab) 5 mg PO QAM [facility] Stop: 06/02/21 08:59 Last Admin: 05/05/21 08:24 Dose: 5 mg Documented by: Atorvastatin Calcium (Atorvastatin 20 Mg Tab) 20 mg PO DAILY [facility] Stop: 06/02/21 08:59 Last Admin: 05/05/21 08:24 Dose: 20 mg Documented by: Baclofen (Baclofen 10 Mg Tab) 10 mg PO TID [facility] Stop: 06/01/21 22:14 Last Admin: 05/05/21 15:09 Dose: 10 mg Documented by: Docusate Sodium (Docusate Sodium 100 Mg Cap) 100 mg PO BID [facility] Stop: 06/01/21 22:14 Last Admin: 05/05/21 08:24 Dose: 100 mg Documented by: Famotidine (Famotidine 20 Mg Tab) 20 mg PO QAM [facility] Stop: 06/02/21 08:59 Last Admin: 05/05/21 08:24 Dose: 20 mg Documented by: Heparin Sodium (Porcine) (Heparin Sod 5,000 Unit/0.5 Ml Vial) 5,000 units SQ Q12 [facility] Stop: 06/03/21 20:59 Last Admin: 05/05/21 08:25 Dose: 5,000 units Documented by: Levofloxacin/Dextrose (Levaquin/D5w) 250 mg in 50 mls @ 50 mls/hr IV DAILY [facility]OLANDA; Protocol Stop: 05/11/21 08:59 Last Infusion: 05/05/21 09:19 Dose: Infused Documented by: Daptomycin 275 mg/ Syringe 5.5 mls @ 2.75 mls/min IV Q24H [facility]; Protocol Stop: 05/12/21 09:59 Last Admin: 05/05/21 10:59 Dose: 2.75 mls/min Documented by: Levetiracetam (Levetiracetam 250 Mg Tab) 250 mg PO BID [facility] Stop: 06/01/21 22:14 Last Admin: 05/05/21 08:24 Dose: 250 mg Documented by: Lidocaine (Lidocaine 5% 1 Patch) 1 patch TD DAILY@1900 [facility] Stop: 06/02/21 18:59 Last Admin: 05/04/21 19:19 Dose: 1 patch Documented by: Miscellaneous (Remove Lidoderm Patch) 1 ea N/A DAILY@0700 [facility] Stop: 06/02/21 06:59 Last Admin: 05/05/21 06:36 Dose: 1 ea Documented by: Miscellaneous Information (Levofloxacin Consult Active) 1 ea N/A UD PRN PRN Reason: Consult Stop: 06/03/21 09:24 Miscellaneous Information (Daptomycin Consult Active) 1 ea N/A UD PRN PRN Reason: Consult Stop: 06/04/21 09:52 Multivitamins/Minerals (Cerovite Adv Formula Tab) 1 tab PO DAILY [facility] Stop: 06/02/21 08:59 Last Admin: 05/05/21 08:24 Dose: 1 tab Documented by: Oxycodone HCl (Oxycodone Hcl Ir 5 Mg Tab (Immediate Release)) 2.5 mg PO Q12H PRN PRN Reason: Pain Stop: 05/16/21 19:44 Last Admin: 05/05/21 00:29 Dose: 2.5 mg Documented by: Polyethylene Glycol (Polyethylene (Miralax) 17 Gm Pack) 17 gm PO DAILY PRN PRN Reason: constipation Stop: 06/01/21 22:14 Prednisone (Prednisone 5 Mg Tab) 5 mg PO DAILY [facility] Stop: 06/02/21 08:59 Last Admin: 05/05/21 08:24 Dose: 5 mg Documented by: Ropinirole HCl (Ropinirole Hcl 0.25 Mg Tablet) 0.25 mg PO HS [facility] Stop: 06/01/21 22:14 Last Admin: 05/04/21 20:36 Dose: 0.25 mg Documented by: Thiamine HCl (Thiamine Hcl 100 Mg Tab) 100 mg PO QAM [facility] Stop: 06/03/21 13:29 Last Admin: 05/05/21 08:24 Dose: 100 mg Documented by: Umeclidinium [place] (Umeclidinium [place] 62.5mcg/Blister 7 Puffs/Inhaler) 1 puffs INH DAILY [facility] Stop: 06/02/21 08:59 Last Admin: 05/05/21 08:23 Dose: 1 puffs Documented by: (1) Rheumatoid arthritis Rheumatoid arthritis location: unspecified site
[2021-05-05] MEDS: LIDOCAINE 5% 1 PATCH TD SCH (18:34)
[2021-05-05] MEDS: AMITRIPTYLINE HCL 25 MG TAB PO SCH (20:16)
[2021-05-05] MEDS: rOPINIRole HCL 0.25 MG TABLET PO SCH (20:16)
[2021-05-05] MEDS: ACETAMINOPHEN 325 MG TAB PO PRN (21:44)
[2021-05-06] MEDS ORDERED: KETOROLAC TROMETHAMINE 15 MG/ML VIAL IV ONE (01:11)
[2021-05-06 06:26] LABS: Hematocrit (blood only) 24.3 % (37-47); Hemoglobin 7.8 g/dL (12.0-16.0); Mean Corpuscular Hemoglobin 30.1 pg (25-34); Mean Corpuscular Hgb Conc 32.1 g/dL (32-36); Mean Corpuscular Volume 93.8 fL (80-100); Mean Platelet Volume 8.7 fL (7.4-10.4); Platelet Count 200 K/uL (130-400); RDW Coefficient of Variation 17.7 % (11.5-14.5); RDW Standard Deviation 60.5 fL (36.4-46.3); Red Blood Count 2.59 M/uL (4.2-5.4); White Blood Count 3.75 K/uL (4.8-10.8)
--- NOTE | 2021-05-06 06:32 | Communication Note ---
Date of Service: May 06, 2021 Notified by RN of a.m. hemoglobin of 7.8 from 8.6 yesterday. No overt bleeding as per RN AP Acute on chronic anemia Hemoglobin drop from baseline History of occult GI bleed as per records Hold heparin subcu for now Defer decision regarding transfusion to AM provider.
[2021-05-06 07:01] LABS: BUN Creatinine Ratio 24.1 (10-20); Calcium 8.1 mg/dl (8.5-10.1); Creatinine Clr Calc Pharmacy 38.8 ml/min; Est GFR (African American) 97.5 ml/min; Est GFR (Non-African American) 84.1 ml/min; Potassium 3.4 mmol/L (3.5-5.1)
[2021-05-06] MEDS: predniSONE 5 MG TAB PO SCH (07:55)
[2021-05-06] MEDS: CEROVITE ADV FORMULA TAB PO SCH (07:55)
[2021-05-06] MEDS: amLODIPine BESYLATE 5 MG TAB PO SCH (07:55)
[2021-05-06] MEDS: levETIRAcetam 250 MG TAB PO SCH ×2 (07:56→20:55)
[2021-05-06] MEDS: HEPARIN SOD 5,000 UNIT/0.5 ML VIAL SQ SCH ×2 (07:56→20:55)
[2021-05-06] MEDS: THIAMINE HCL 100 MG TAB PO SCH (07:56)
[2021-05-06] MEDS: ATORVASTATIN 20 MG TAB PO SCH (07:56)
[2021-05-06] MEDS: UMECLIDINIUM BROMIDE 62.5MCG/BLISTER 7 PUFFS/INHALER INH SCH (07:57)
[2021-05-06] MEDS: DOCUSATE SODIUM 100 MG CAP PO SCH ×2 (08:03→20:54)
[2021-05-06] MEDS: FAMOTIDINE 20 MG TAB PO SCH (08:03)
[2021-05-06] MEDS: levoFLOXacin/D5W 250 MG/50 ML BAG IV SCH (08:03)
[2021-05-06] MEDS: BACLOFEN 10 MG TAB PO SCH ×3 (08:03→20:54)
[2021-05-06] MEDS: DAPTOmycin 275 MG in SYRINGE 0 ML IV SCH (09:39)
[2021-05-06] MEDS: oxyCODONE HCL IR 5 MG TAB (IMMEDIATE RELEASE) PO PRN ×2 (09:45→20:55)
[2021-05-06] MEDS ORDERED: POTASSIUM CHLORIDE CRTAB 20 MEQ TABCR PO STA (10:56)
[2021-05-06 12:05] LABS: Ferritin 40.6 ng/ml (8-388)
[2021-05-06] MEDS: ACETAMINOPHEN 325 MG TAB PO PRN (13:09)
--- NOTE | 2021-05-06 18:30 | Hospitalist Progress Note ---
Date of Service May 06, 2021 Assessment & Plan (1) Recurrent falls: Patient lives alone, is physically deconditioned with multiple recent hospitalizations, and is on narcotics and muscle relaxers all of which are likely contributing to her recurrent falls. She does not appear capable to take care of herself. SNF placement is strongly recommended. No beds at [facility] until after holiday weekend. (2) UTI (urinary tract infection): Vancomycin sensitive Enterococcus in the urine. Currently covered on Dapto and feeling better. Some persistent pinching when initiating stream. Trial of pyridium. (3) Pneumonia: Poor historian, no martita coughing or worsening shortness of breath, fevers or chills noted. She is immunosuppressed on chronic prednisone, however. There was a question of aspiration and she was evaluated by speech therapy this admission. She is known to speech therapy services having participated in a video swallow study in January of this year. 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 There is questionable compliance with diet modifications that were recommended. Giving course of Levaquin at this time to cover empirically for pneumonia-Day 3/7. She is clinically improved overall. (4) Lower limb ulcer: POA, painful. MRSA growing. Cont dapto for now pending additional blood culture results which appear to be a possible contaminant. (5) COPD (chronic obstructive pulmonary disease): Chronic, appears stable. No wheezing on exam. Patient continues to smoke. Cont Incruse Ellipta. (6) Severe malnutrition: Poor p.o. intake and overall self-care. Nutrition saw patient and is initiating boost breeze twice daily. We will continue to monitor bowel regularity, skin integrity and daily weights. Cont daily thiamine. (7) Seizure disorder: Continue levetiracetam per home medications. (8) Rheumatoid arthritis: On chronic prednisone - will continue (9) Restless leg syndrome: - Continue ropinirole per home medications. (10) Smoking: Nicoderm. Encouraged to quit smoking. (11) DVT prophylaxis: Heparin- held in setting of fall in H/H overnight. No active bleeding. DNR/DNI Dispo-recommend placement. Awaiting open bed at [facility] which is not [facility] until [facility] the [facility]. 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 Work-up reveals questionable UTI and chest x-ray consistent with possible pneum onia. Also has RLE wound Generally feeling well Tolerating PO RLE wound is painful but bearable dependent on narcotics and baclofen which are helping Review of Systems Review of Systems: All systems reviewed & are unremarkable except as noted in Subjective Physical Exam Physical Exam: CONSTITUTIONAL: thin, frail, vitals as above, generally NAD EYES: normal conjunctivae, no scleral icterus ENT: external ear and nose normal, MMM NECK: trachea midline RESPIRATORY: Clear to auscultation bilaterally, no wheezing or rales, normal respiratory effort. CARDIOVASCULAR: regular rate and rhythm, S1 and 2 heard without murmurs, gall ops or rubs, no JVD, no peripheral edema GASTROINTESTINAL: soft, nontender, nondistended MUSCULOSKELETAL: Generalized weakness, normocephalic head with some ecchymosis seen on the lateral periorbital area-healing well SKIN: warm and dry, multiple prior abrasions, cuts and other sequelae of recent falls present on extremities. RLE wound-2cm with purulent material-covered with tegaderm NEUROLOGIC: CN 2-12 grossly intact, normal cognition, normal speech, no gross focal deficits. PSYCHIATRIC: alert cooperative and oriented to person, place and time. Results & Data Results & Data ([facility]) Vital Signs (Past 12 Hours) Vital Signs Temp Pulse Resp BP Pulse Ox 05/06/21 15:31 36.9 C 71 16 125/75 93 05/06/21 07:28 36.7 C 74 16 107/55 L 95 Laboratory Results Short CBC 05/06/21 Range/Units 05:42 WBC 3.75 L (4.8-10.8) K/uL Hgb 7.8 L (12.0-16.0) g/dL Hct 24.3 L (37-47) % Plt Count 200 (130-400) K/uL BMP 05/06/21 05:42 Sodium 136 Potassium 3.4 L Chloride 105 Carbon Dioxide 28 BUN 15 Creatinine 0.63 Glucose 118 H Calcium 8.1 L Medications Administered Current Inpatient Medications Acetaminophen (Acetaminophen 325 Mg Tab) 650 mg PO Q4H PRN PRN Reason: pain/fever Stop: 06/01/21 22:14 Last Admin: 05/06/21 13:09 Dose: 650 mg Documented by: Amitriptyline HCl (Amitriptyline Hcl 25 Mg Tab) 25 mg PO HS [facility] Stop: 06/01/21 22:14 Last Admin: 05/05/21 20:16 Dose: 25 mg Documented by: Amlodipine Besylate (Amlodipine Besylate 5 Mg Tab) 5 mg PO QAM [facility] Stop: 06/02/21 08:59 Last Admin: 05/06/21 07:55 Dose: 5 mg Documented by: Atorvastatin Calcium (Atorvastatin 20 Mg Tab) 20 mg PO DAILY [facility] Stop: 06/02/21 08:59 Last Admin: 05/06/21 07:56 Dose: 20 mg Documented by: Baclofen (Baclofen 10 Mg Tab) 10 mg PO TID [facility] Stop: 06/01/21 22:14 Last Admin: 05/06/21 13:09 Dose: 10 mg Documented by: Docusate Sodium (Docusate Sodium 100 Mg Cap) 100 mg PO BID [facility] Stop: 06/01/21 22:14 Last Admin: 05/06/21 08:03 Dose: 100 mg Documented by: Famotidine (Famotidine 20 Mg Tab) 20 mg PO QAM [facility] Stop: 06/02/21 08:59 Last Admin: 05/06/21 08:03 Dose: 20 mg Documented by: Heparin Sodium (Porcine) (Heparin Sod 5,000 Unit/0.5 Ml Vial) 5,000 units SQ Q12 [facility] Stop: 06/03/21 20:59 Last Admin: 05/06/21 07:56 Dose: 5,000 units Documented by: Levofloxacin/Dextrose (Levaquin/D5w) 250 mg in 50 mls @ 50 mls/hr IV DAILY [facility]; Protocol Stop: 05/11/21 08:59 Last Infusion: 05/06/21 09:03 Dose: Infused Documented by: Daptomycin 275 mg/ Syringe 5.5 mls @ 2.75 mls/min IV Q24H [facility]; Protocol Stop: 05/12/21 09:59 Last Admin: 05/06/21 09:39 Dose: 2.75 mls/min Documented by: Levetiracetam (Levetiracetam 250 Mg Tab) 250 mg PO BID [facility] Stop: 06/01/21 22:14 Last Admin: 05/06/21 07:56 Dose: 250 mg Documented by: Lidocaine (Lidocaine 5% 1 Patch) 1 patch TD DAILY@1900 [facility] Stop: 06/02/21 18:59 Last Admin: 05/05/21 18:34 Dose: 1 patch Documented by: Miscellaneous (Remove Lidoderm Patch) 1 ea N/A DAILY@0700 [facility] Stop: 06/02/21 06:59 Last Admin: 05/06/21 06:26 Dose: 1 ea Documented by: Miscellaneous Information (Levofloxacin Consult Active) 1 ea N/A UD PRN PRN Reason: Consult Stop: 06/03/21 09:24 Miscellaneous Information (Daptomycin Consult Active) 1 ea N/A UD PRN PRN Reason: Consult Stop: 06/04/21 09:52 Multivitamins/Minerals (Cerovite Adv Formula Tab) 1 tab PO DAILY [facility] Stop: 06/02/21 08:59 Last Admin: 05/06/21 07:55 Dose: 1 tab Documented by: Oxycodone HCl (Oxycodone Hcl Ir 5 Mg Tab (Immediate Release)) 2.5 mg PO Q12H PRN PRN Reason: Pain Stop: 05/16/21 19:44 Last Admin: 05/06/21 09:45 Dose: 2.5 mg Documented by: Polyethylene Glycol (Polyethylene (Miralax) 17 Gm Pack) 17 gm PO DAILY PRN PRN Reason: constipation Stop: 06/01/21 22:14 Prednisone (Prednisone 5 Mg Tab) 5 mg PO DAILY [facility] Stop: 06/02/21 08:59 Last Admin: 05/06/21 07:55 Dose: 5 mg Documented by: Ropinirole HCl (Ropinirole Hcl 0.25 Mg Tablet) 0.25 mg PO HS [facility] Stop: 06/01/21 22:14 Last Admin: 05/05/21 20:16 Dose: 0.25 mg Documented by: Thiamine HCl (Thiamine Hcl 100 Mg Tab) 100 mg PO QAM [facility] Stop: 06/03/21 13:29 Last Admin: 05/06/21 07:56 Dose: 100 mg Documented by: Umeclidinium [place] (Umeclidinium [place] 62.5mcg/Blister 7 Puffs/Inhaler) 1 puffs INH DAILY [facility] Stop: 06/02/21 08:59 Last Admin: 05/06/21 07:57 Dose: 1 puffs Documented by: (1) Rheumatoid arthritis Rheumatoid arthritis location: unspecified site (2) Lower limb ulcer Laterality: unspecified laterality Non-pressure ulcer stage: unspecified non- pressure ulcer stage Qualified Code(s): L97.909 - Non-pressure chronic ulcer of unspecified part of unspecified lower leg with unspecified severity
[2021-05-06] MEDS: LIDOCAINE 5% 1 PATCH TD SCH (18:38)
[2021-05-06] MEDS: AMITRIPTYLINE HCL 25 MG TAB PO SCH (20:54)
[2021-05-06] MEDS: rOPINIRole HCL 0.25 MG TABLET PO SCH (20:55)
[2021-05-06] MEDS ORDERED: COUGH DROP (SUGAR FREE) LOZ 24 LOZ/1 BOX BUCCAL PRN (22:41)
[2021-05-07] MEDS: amLODIPine BESYLATE 5 MG TAB PO SCH (08:20)
[2021-05-07] MEDS: HEPARIN SOD 5,000 UNIT/0.5 ML VIAL SQ SCH ×2 (08:20→20:42)
[2021-05-07] MEDS: THIAMINE HCL 100 MG TAB PO SCH (08:20)
[2021-05-07] MEDS: predniSONE 5 MG TAB PO SCH (08:20)
[2021-05-07] MEDS: CEROVITE ADV FORMULA TAB PO SCH (08:21)
[2021-05-07] MEDS: UMECLIDINIUM BROMIDE 62.5MCG/BLISTER 7 PUFFS/INHALER INH SCH (08:21)
[2021-05-07] MEDS: FAMOTIDINE 20 MG TAB PO SCH (08:21)
[2021-05-07] MEDS: DOCUSATE SODIUM 100 MG CAP PO SCH ×2 (08:21→20:42)
[2021-05-07] MEDS: BACLOFEN 10 MG TAB PO SCH ×3 (08:21→20:42)
[2021-05-07] MEDS: ATORVASTATIN 20 MG TAB PO SCH (08:21)
[2021-05-07] MEDS: levETIRAcetam 250 MG TAB PO SCH ×2 (08:21→20:42)
[2021-05-07] MEDS: PHENAZOPYRIDINE HCL 100 MG TAB PO SCH ×3 (08:22→20:42)
[2021-05-07] MEDS: levoFLOXacin 250 MG TABLET PO SCH (08:52)
[2021-05-07] MEDS: DAPTOmycin 275 MG in SYRINGE 0 ML IV SCH (10:05)
[2021-05-07] MEDS: LIDOCAINE 5% 1 PATCH TD SCH (18:30)
--- NOTE | 2021-05-07 19:17 | Hospitalist Progress Note ---
Date of Service May 07, 2021 Assessment & Plan (1) Recurrent falls: Patient lives alone, is physically deconditioned with multiple recent hospitalizations, and is on narcotics and muscle relaxers all of which are likely contributing to her recurrent falls. She does not appear capable to take care of herself. SNF placement is strongly recommended. No beds at [facility] until after holiday weekend. (2) UTI (urinary tract infection): Vancomycin sensitive Enterococcus in the urine. Currently covered on Dapto and feeling better. Some persistent pinching when initiating stream. Trial of pyridium. (3) Pneumonia: Poor historian, no martita coughing or worsening shortness of breath, fevers or chills noted. She is immunosuppressed on chronic prednisone, however. There was a question of aspiration and she was evaluated by speech therapy this admission. She is known to speech therapy services having participated in a video swallow study in January of this year. 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 There is questionable compliance with diet modifications that were recommended. Giving course of Levaquin at this time to cover empirically for pneumonia. She is clinically improved overall. (4) Lower limb ulcer: POA, painful. Infected with MRSA. Cont dapto for now pending additional blood culture results which appear to be a possible contaminant. (5) COPD (chronic obstructive pulmonary disease): Chronic, appears stable. No wheezing on exam. Patient continues to smoke. Smoking cessation advised. Cont Incruse Ellipta. (6) Severe malnutrition: Poor p.o. intake and overall self-care. Nutrition saw patient and is initiating boost breeze twice daily. We will continue to monitor bowel regularity, skin integrity and daily weights. Cont daily thiamine. (7) Seizure disorder: Continue levetiracetam per home medications. (8) Rheumatoid arthritis: On chronic prednisone - will continue (9) Restless leg syndrome: - Continue ropinirole per home medications. (10) Smoking: Nicoderm. Encouraged to quit smoking. (11) DVT prophylaxis: Heparin- held in setting of fall in H/H overnight. No active bleeding. DNR/DNI Dispo-recommend placement. Awaiting open bed at [facility] which is not available until [facility] the [facility]. 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 infected RLE wound, POA, possible pneumonia (active smoker), and UTI. Generally feeling well Tolerating PO RLE wound is painful but bearable dependent on narcotics and baclofen which are helping Review of Systems Review of Systems: All systems reviewed & are unremarkable except as noted in Subjective Physical Exam Physical Exam: CONSTITUTIONAL: thin, frail, vitals as above, generally NAD EYES: normal conjunctivae, no scleral icterus ENT: external ear and nose normal, MMM NECK: trachea midline RESPIRATORY: Clear to auscultation bilaterally, no wheezing or rales, normal respiratory effort. CARDIOVASCULAR: regular rate and rhythm, S1 and 2 heard without murmurs, gallops or rubs, no JVD, no peripheral edema GASTROINTESTINAL: soft, nontender, nondistended MUSCULOSKELETAL: Generalized weakness, normocephalic head with some ecchymosis seen on the lateral periorbital area-healing well SKIN: warm and dry, multiple prior abrasions, cuts and other sequelae of recent falls present on extremities. RLE wound-2cm with purulent material-covered with tegaderm NEUROLOGIC: CN 2-12 grossly intact, normal cognition, normal speech, no gross focal deficits. PSYCHIATRIC: alert cooperative and oriented to person, place and time. Results & Data Results & Data ([facility]) Vital Signs (Past 12 Hours) Vital Signs Temp Pulse Resp BP BP Pulse Ox 05/07/21 16:00 36.6 C 80 16 138/61 91 05/07/21 07:26 36.9 C 77 17 114/65 93 Medications Administered Current Inpatient Medications Acetaminophen (Acetaminophen 325 Mg Tab) 650 mg PO Q4H PRN PRN Reason: pain/fever Stop: 06/01/21 22:14 Last Admin: 05/06/21 13:09 Dose: 650 mg Documented by: Amitriptyline HCl (Amitriptyline Hcl 25 Mg Tab) 25 mg PO HS [facility] Stop: 06/01/21 22:14 Last Admin: 05/06/21 20:54 Dose: 25 mg Documented by: Amlodipine Besylate (Amlodipine Besylate 5 Mg Tab) 5 mg PO QAM [facility] Stop: 06/02/21 08:59 Last Admin: 05/07/21 08:20 Dose: 5 mg Documented by: Atorvastatin Calcium (Atorvastatin 20 Mg Tab) 20 mg PO DAILY [facility] Stop: 06/02/21 08:59 Last Admin: 05/07/21 08:21 Dose: 20 mg Documented by: Baclofen (Baclofen 10 Mg Tab) 10 mg PO TID [facility] Stop: 06/01/21 22:14 Last Admin: 05/07/21 13:53 Dose: 10 mg Documented by: Docusate Sodium (Docusate Sodium 100 Mg Cap) 100 mg PO BID [facility] Stop: 06/01/21 22:14 Last Admin: 05/07/21 08:21 Dose: 100 mg Documented by: Famotidine (Famotidine 20 Mg Tab) 20 mg PO QAM [facility] Stop: 06/02/21 08:59 Last Admin: 05/07/21 08:21 Dose: 20 mg Documented by: Heparin Sodium (Porcine) (Heparin Sod 5,000 Unit/0.5 Ml Vial) 5,000 units SQ Q12 [facility] Stop: 06/03/21 20:59 Last Admin: 05/07/21 08:20 Dose: Not Given Documented by: Daptomycin 275 mg/ Syringe 5.5 mls @ 2.75 mls/min IV Q24H [facility]; Protocol Stop: 05/12/21 09:59 Last Admin: 05/07/21 10:05 Dose: 2.75 mls/min Documented by: Levetiracetam (Levetiracetam 250 Mg Tab) 250 mg PO BID [facility] Stop: 06/01/21 22:14 Last Admin: 05/07/21 08:21 Dose: 250 mg Documented by: Levofloxacin (Levofloxacin 250 Mg Tablet) 250 mg PO DAILY [facility]; Protocol Stop: 05/10/21 09:01 Last Admin: 05/07/21 08:52 Dose: 250 mg Documented by: Lidocaine (Lidocaine 5% 1 Patch) 1 patch TD DAILY@1900 [facility] Stop: 06/02/21 18:59 Last Admin: 05/07/21 18:30 Dose: 1 patch Documented by: Menthol (Cough Drop (Sugar Free) Nahomi 24 Nahomi/1 Box) 1 nahomi BUCCAL UD PRN PRN Reason: Sore Throat Stop: 06/05/21 22:40 Last Admin: 05/06/21 22:53 Dose: 1 nahomi Documented by: Miscellaneous (Remove Lidoderm Patch) 1 ea N/A DAILY@0700 [facility] Stop: 06/02/21 06:59 Last Admin: 05/07/21 05:28 Dose: 1 ea Documented by: Miscellaneous Information (Levofloxacin Consult Active) 1 ea N/A UD PRN PRN Reason: Consult Stop: 06/03/21 09:24 Miscellaneous Information (Daptomycin Consult Active) 1 ea N/A UD PRN PRN Reason: Consult Stop: 06/04/21 09:52 Multivitamins/Minerals (Cerovite Adv Formula Tab) 1 tab PO DAILY [facility] Stop: 06/02/21 08:59 Last Admin: 05/07/21 08:21 Dose: 1 tab Documented by: Oxycodone HCl (Oxycodone Hcl Ir 5 Mg Tab (Immediate Release)) 2.5 mg PO Q12H PRN PRN Reason: Pain Stop: 05/16/21 19:44 Last Admin: 05/06/21 20:55 Dose: 2.5 mg Documented by: Phenazopyridine HCl (Phenazopyridine Hcl 100 Mg Tab) 100 mg PO TID [facility] Stop: 06/06/21 08:59 Last Admin: 05/07/21 13:53 Dose: 100 mg Documented by: Polyethylene Glycol (Polyethylene (Miralax) 17 Gm Pack) 17 gm PO DAILY PRN PRN Reason: constipation Stop: 06/01/21 22:14 Prednisone (Prednisone 5 Mg Tab) 5 mg PO DAILY [facility] Stop: 06/02/21 08:59 Last Admin: 05/07/21 08:20 Dose: 5 mg Documented by: Ropinirole HCl (Ropinirole Hcl 0.25 Mg Tablet) 0.25 mg PO HS [facility] Stop: 06/01/21 22:14 Last Admin: 05/06/21 20:55 Dose: 0.25 mg Documented by: Thiamine HCl (Thiamine Hcl 100 Mg Tab) 100 mg PO QAM [facility] Stop: 06/03/21 13:29 Last Admin: 05/07/21 08:20 Dose: 100 mg Documented by: Umeclidinium [place] (Umeclidinium [place] 62.5mcg/Blister 7 Puffs/Inhaler) 1 puffs INH DAILY [facility] Stop: 06/02/21 08:59 Last Admin: 05/07/21 08:21 Dose: 1 puffs Documented by: (1) Rheumatoid arthritis Rheumatoid arthritis location: unspecified site (2) Lower limb ulcer Laterality: unspecified laterality Non-pressure ulcer stage: unspecified non- pressure ulcer stage Qualified Code(s): L97.909 - Non-pressure chronic ulcer of unspecified part of unspecified lower leg with unspecified severity
[2021-05-07] MEDS: oxyCODONE HCL IR 5 MG TAB (IMMEDIATE RELEASE) PO PRN (19:51)
[2021-05-07] MEDS: rOPINIRole HCL 0.25 MG TABLET PO SCH (20:42)
[2021-05-07] MEDS: AMITRIPTYLINE HCL 25 MG TAB PO SCH (20:43)
[2021-05-07] MEDS ORDERED: oxyCODONE HCL IR 5 MG TAB (IMMEDIATE RELEASE) PO STA (22:42)
[2021-05-07] MEDS ORDERED: XOPENEX/ATROVENT 1.25mg/0.5MG NEB COMBO NEB PRN (22:47)
[2021-05-07] MEDS ORDERED: LEVALBUTEROL 1.25MG/0.5ML NEB INH PRN (23:00)
[2021-05-07] MEDS ORDERED: IPRATROPIUM BROMIDE NEB SOLN 0.02% 2.5 ML VIAL INH PRN (23:00)
[2021-05-08] MEDS: oxyCODONE HCL IR 5 MG TAB (IMMEDIATE RELEASE) PO PRN ×3 (04:55→21:14)
[2021-05-08] MEDS: levETIRAcetam 250 MG TAB PO SCH ×2 (08:46→21:05)
[2021-05-08] MEDS: PHENAZOPYRIDINE HCL 100 MG TAB PO SCH ×3 (08:46→21:05)
[2021-05-08] MEDS: amLODIPine BESYLATE 5 MG TAB PO SCH (08:46)
[2021-05-08] MEDS: predniSONE 5 MG TAB PO SCH (08:47)
[2021-05-08] MEDS: CEROVITE ADV FORMULA TAB PO SCH (08:47)
[2021-05-08] MEDS: levoFLOXacin 250 MG TABLET PO SCH (08:47)
[2021-05-08] MEDS: THIAMINE HCL 100 MG TAB PO SCH (08:47)
[2021-05-08] MEDS: ATORVASTATIN 20 MG TAB PO SCH (08:47)
[2021-05-08] MEDS: DOCUSATE SODIUM 100 MG CAP PO SCH ×2 (08:47→21:08)
[2021-05-08] MEDS: HEPARIN SOD 5,000 UNIT/0.5 ML VIAL SQ SCH ×2 (08:48→21:06)
[2021-05-08] MEDS: BACLOFEN 10 MG TAB PO SCH ×3 (08:48→21:08)
[2021-05-08] MEDS: FAMOTIDINE 20 MG TAB PO SCH (08:48)
[2021-05-08] MEDS: UMECLIDINIUM BROMIDE 62.5MCG/BLISTER 7 PUFFS/INHALER INH SCH (08:48)
[2021-05-08] MEDS: DAPTOmycin 275 MG in SYRINGE 0 ML IV SCH (09:21)
--- NOTE | 2021-05-08 11:08 | Hospitalist Progress Note ---
Date of Service May 08, 2021 Assessment & Plan (1) Recurrent falls: Patient lives alone, is physically deconditioned with multiple recent hospitalizations, and is on narcotics and muscle relaxers all of which are likely contributing to her recurrent falls. She does not appear capable to take care of herself. SNF placement is strongly recommended. No beds at [facility] until after holiday weekend. Long-term solution may be assisted living, which patient is open to. Will discuss with case managment. (2) UTI (urinary tract infection): Vancomycin sensitive Enterococcus in the urine. Currently covered on Dapto and feeling better. Some persistent pinching when initiating stream. Trial of pyridium. She has completed 5 days at this point and should be cleared of infection. No further antibiotics needed for this. (3) Pneumonia: Poor historian, no martita coughing or worsening shortness of breath, fevers or chills noted. She is immunosuppressed on chronic prednisone, however. There was a question of aspiration and she was evaluated by speech therapy this admission. She is known to speech therapy services having participated in a video swallow study in January of this year. She did not aspirate but has esophageal dysfunction that is known. There is questionable compliance with diet modifications that were recommended. Giving course of Levaquin at this time to cover empirically for pneumonia. She is clinically improved overall. (4) Lower limb ulcer: POA, painful. Infected with MRSA. Stop dapto and start Bactrim for now- monitor clinical response before putting a stop date on this. May need full 14 day course abx. Will work closely with wound nurse. (5) COPD (chronic obstructive pulmonary disease): Chronic, appears stable. No wheezing on exam. Patient continues to smoke. Smoking cessation advised. Cont Incruse Ellipta. (6) Severe malnutrition: Poor p.o. intake and overall self-care. Nutrition saw patient and is initiating boost breeze twice daily. We will continue to monitor bowel regularity, skin integrity and daily weights. Cont daily thiamine. (7) Seizure disorder: Continue levetiracetam per home medications. (8) Rheumatoid arthritis: On chronic prednisone - will continue (9) Restless leg syndrome: - Continue ropinirole per home medications. (10) Smoking: Nicoderm. Encouraged to quit smoking. (11) DVT prophylaxis: Heparin- patient has been refusing so will stop this now. DNR/DNI Dispo-recommend placement. Awaiting open bed at [facility] which is not available until after the weekend. 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 infected RLE wound, POA, possible pneumonia (active smoker), and UTI. Generally feeling well-no changes this weekend Tolerating PO-trying to gain weight RLE wound is painful but bearable dependent on narcotics and baclofen which are helping Spoke with DIL by phone who states getting help in the home has been difficult from a financial standpoint. Her kids don't drive and neither does the patient. She can't live with family because of space and other work limitations. I discussed assisted living as an option with the patient and she was open to it. Will discuss with case management. Review of Systems Review of Systems: All systems reviewed & are unremarkable except as noted in Subjective Physical Exam Physical Exam: CONSTITUTIONAL: thin, frail, vitals as above, generally NAD EYES: normal conjunctivae, no scleral icterus ENT: external ear and nose normal, MMM NECK: trachea midline RESPIRATORY: Clear to auscultation bilaterally, no wheezing or rales, normal respiratory effort. CARDIOVASCULAR: regular rate and rhythm, S1 and 2 heard without murmurs, gallops or rubs, no JVD, no peripheral edema GASTROINTESTINAL: soft, nontender, nondistended MUSCULOSKELETAL: Generalized weakness, normocephalic head with some ecchymosis seen on the lateral periorbital area-healing well SKIN: warm and dry, multiple prior abrasions, cuts and other sequelae of recent falls present on extremities. RLE wound-2cm with purulent material-covered with tegaderm NEUROLOGIC: CN 2-12 grossly intact, normal cognition, normal speech, no gross focal deficits. PSYCHIATRIC: alert cooperative and oriented to person, place and time. Results & Data Results & Data ([facility]) Vital Signs (Past 12 Hours) Vital Signs Temp Pulse Resp BP Pulse Ox 05/08/21 08:23 36.4 C L 77 20 146/72 H 94 05/07/21 23:06 82 20 92 Medications Administered Current Inpatient Medications Acetaminophen (Acetaminophen 325 Mg Tab) 650 mg PO Q4H PRN PRN Reason: pain/fever Stop: 06/01/21 22:14 Last Admin: 05/06/21 13:09 Dose: 650 mg Documented by: Amitriptyline HCl (Amitriptyline Hcl 25 Mg Tab) 25 mg PO HS YOLANDA Stop: 06/01/21 22:14 Last Admin: 05/07/21 20:43 Dose: 25 mg Documented by: Amlodipine Besylate (Amlodipine Besylate 5 Mg Tab) 5 mg PO QAM YOLANDA Stop: 06/02/21 08:59 Last Admin: 05/08/21 08:46 Dose: 5 mg Documented by: Atorvastatin Calcium (Atorvastatin 20 Mg Tab) 20 mg PO DAILY YOLANDA Stop: 06/02/21 08:59 Last Admin: 05/08/21 08:47 Dose: 20 mg Documented by: Baclofen (Baclofen 10 Mg Tab) 10 mg PO TID YOLANDA Stop: 06/01/21 22:14 Last Admin: 05/08/21 08:48 Dose: 10 mg Documented by: Docusate Sodium (Docusate Sodium 100 Mg Cap) 100 mg PO BID [facility]OLANDA Stop: 06/01/21 22:14 Last Admin: 05/08/21 08:47 Dose: 100 mg Documented by: Famotidine (Famotidine 20 Mg Tab) 20 mg PO QAM [facility] Stop: 06/02/21 08:59 Last Admin: 05/08/21 08:48 Dose: 20 mg Documented by: Heparin Sodium (Porcine) (Heparin Sod 5,000 Unit/0.5 Ml Vial) 5,000 units SQ Q12 YOLANDA Stop: 06/03/21 20:59 Last Admin: 05/08/21 08:48 Dose: Not Given Documented by: Ipratropium Cody (Ipratropium Cody Neb Soln 0.02% 2.5 Ml Vial) 0.5 mg INH Q4H PRN PRN Reason: SOB/WHEEZING Stop: 06/06/21 22:59 Last Admin: 05/07/21 23:06 Dose: 0.5 mg Documented by: Levalbuterol HCl (Levalbuterol 1.25mg/0.5ml Neb) 1.25 mg INH Q4H PRN PRN Reason: SOB/WHEEZING Stop: 06/06/21 22:59 Last Admin: 05/07/21 23:06 Dose: 1.25 mg Documented by: Levetiracetam (Levetiracetam 250 Mg Tab) 250 mg PO BID [facility] Stop: 06/01/21 22:14 Last Admin: 05/08/21 08:46 Dose: 250 mg Documented by: Levofloxacin (Levofloxacin 250 Mg Tablet) 250 mg PO DAILY [facility]; Protocol Stop: 05/10/21 09:01 Last Admin: 05/08/21 08:47 Dose: 250 mg Documented by: Lidocaine (Lidocaine 5% 1 Patch) 1 patch TD DAILY@1900 [facility] Stop: 06/02/21 18:59 Last Admin: 05/07/21 18:30 Dose: 1 patch Documented by: Menthol (Cough Drop (Sugar Free) Nahomi 24 Nahomi/1 Box) 1 nahomi BUCCAL UD PRN PRN Reason: Sore Throat Stop: 06/05/21 22:40 Last Admin: 05/06/21 22:53 Dose: 1 nahomi Documented by: Miscellaneous (Remove Lidoderm Patch) 1 ea N/A DAILY@0700 [facility] Stop: 06/02/21 06:59 Last Admin: 05/08/21 01:14 Dose: 1 ea Documented by: Miscellaneous Information (Levofloxacin Consult Active) 1 ea N/A UD PRN PRN Reason: Consult Stop: 06/03/21 09:24 Multivitamins/Minerals (Cerovite Adv Formula Tab) 1 tab PO DAILY [facility] Stop: 06/02/21 08:59 Last Admin: 05/08/21 08:47 Dose: 1 tab Documented by: Oxycodone HCl (Oxycodone Hcl Ir 5 Mg Tab (Immediate Release)) 2.5 mg PO Q6H PRN PRN Reason: Pain Stop: 05/16/21 19:44 Last Admin: 05/08/21 04:55 Dose: 2.5 mg Documented by: Phenazopyridine HCl (Phenazopyridine Hcl 100 Mg Tab) 100 mg PO TID [facility] Stop: 06/06/21 08:59 Last Admin: 05/08/21 08:46 Dose: 100 mg Documented by: Polyethylene Glycol (Polyethylene (Miralax) 17 Gm Pack) 17 gm PO DAILY PRN PRN Reason: constipation Stop: 06/01/21 22:14 Prednisone (Prednisone 5 Mg Tab) 5 mg PO DAILY [facility] Stop: 06/02/21 08:59 Last Admin: 05/08/21 08:47 Dose: 5 mg Documented by: Ropinirole HCl (Ropinirole Hcl 0.25 Mg Tablet) 0.25 mg PO HS YOLANDA Stop: 06/01/21 22:14 Last Admin: 05/07/21 20:42 Dose: 0.25 mg Documented by: Thiamine HCl (Thiamine Hcl 100 Mg Tab) 100 mg PO QAM [facility] Stop: 06/03/21 13:29 Last Admin: 05/08/21 08:47 Dose: 100 mg Documented by: Trimethoprim/Sulfamethoxazole (Sulfamethoxazole/Trimethoprim Ds 800/160mg Tab) 1 tab PO BID [facility] Stop: 05/15/21 20:59 Umeclidinium Cody (Umeclidinium Cody 62.5mcg/Blister 7 Puffs/Inhaler) 1 puffs INH DAILY [facility] Stop: 06/02/21 08:59 Last Admin: 05/08/21 08:48 Dose: 1 puffs Documented by: (1) Rheumatoid arthritis Rheumatoid arthritis location: unspecified site (2) Lower limb ulcer Laterality: unspecified laterality Non-pressure ulcer stage: unspecified non-pressure ulcer stage Qualified Code(s): L97.909 - Non-pressure chronic ulcer of unspecified part of unspecified lower leg with unspecified severity
[2021-05-08] MEDS: LIDOCAINE 5% 1 PATCH TD SCH (18:08)
[2021-05-08] MEDS: SULFAMETHOXAZOLE/TRIMETHOPRIM DS 800/160MG TAB PO SCH (21:05)
[2021-05-08] MEDS: rOPINIRole HCL 0.25 MG TABLET PO SCH (21:05)
[2021-05-08] MEDS: AMITRIPTYLINE HCL 25 MG TAB PO SCH (21:05)
[2021-05-09] MEDS: oxyCODONE HCL IR 5 MG TAB (IMMEDIATE RELEASE) PO PRN ×3 (06:35→21:56)
[2021-05-09] MEDS: BACLOFEN 10 MG TAB PO SCH ×3 (08:08→19:36)
[2021-05-09] MEDS: DOCUSATE SODIUM 100 MG CAP PO SCH ×2 (08:08→21:53)
[2021-05-09] MEDS: amLODIPine BESYLATE 5 MG TAB PO SCH (08:08)
[2021-05-09] MEDS: FAMOTIDINE 20 MG TAB PO SCH (08:08)
[2021-05-09] MEDS: ATORVASTATIN 20 MG TAB PO SCH (08:09)
[2021-05-09] MEDS: THIAMINE HCL 100 MG TAB PO SCH (08:09)
[2021-05-09] MEDS: predniSONE 5 MG TAB PO SCH (08:09)
[2021-05-09] MEDS: SULFAMETHOXAZOLE/TRIMETHOPRIM DS 800/160MG TAB PO SCH ×2 (08:09→21:50)
[2021-05-09] MEDS: CEROVITE ADV FORMULA TAB PO SCH (08:09)
[2021-05-09] MEDS: levoFLOXacin 250 MG TABLET PO SCH (08:09)
[2021-05-09] MEDS: levETIRAcetam 250 MG TAB PO SCH ×2 (08:09→21:50)
[2021-05-09] MEDS: PHENAZOPYRIDINE HCL 100 MG TAB PO SCH ×3 (08:10→21:50)
[2021-05-09] MEDS: UMECLIDINIUM BROMIDE 62.5MCG/BLISTER 7 PUFFS/INHALER INH SCH (08:10)
[2021-05-09] MEDS: HEPARIN SOD 5,000 UNIT/0.5 ML VIAL SQ SCH (08:10)
[2021-05-09 09:33] LABS: Hematocrit (blood only) 27.6 % (37-47); Hemoglobin 8.8 g/dL (12.0-16.0); Mean Corpuscular Hemoglobin 30.7 pg (25-34); Mean Corpuscular Hgb Conc 31.9 g/dL (32-36); Mean Corpuscular Volume 96.2 fL (80-100); Mean Platelet Volume 8.5 fL (7.4-10.4); Platelet Count 226 K/uL (130-400); RDW Coefficient of Variation 18.1 % (11.5-14.5); RDW Standard Deviation 63.5 fL (36.4-46.3); Red Blood Count 2.87 M/uL (4.2-5.4); White Blood Count 6.78 K/uL (4.8-10.8)
[2021-05-09 09:58] LABS: BUN Creatinine Ratio 24.5 (10-20); Calcium 8.7 mg/dl (8.5-10.1); Creatinine Clr Calc Pharmacy 31.3 ml/min; Est GFR (African American) 82.6 ml/min; Est GFR (Non-African American) 71.3 ml/min; Magnesium 1.8 mg/dl (1.8-2.4); Phosphorus 3.8 mg/dl (2.5-4.9); Potassium 3.9 mmol/L (3.5-5.1)
--- NOTE | 2021-05-09 18:18 | Hospitalist Progress Note ---
Date of Service May 09, 2021 Assessment & Plan (1) Recurrent falls: Patient lives alone, is physically deconditioned with multiple recent hospitalizations, and is on narcotics and muscle relaxers all of which are likely contributing to her recurrent falls. She does not appear capable to take care of herself. SNF placement is strongly recommended. No beds at [facility] until after holiday weekend. Long-term solution may be assisted living, which patient is open to. Will discuss with case managment. (2) UTI (urinary tract infection): Vancomycin sensitive Enterococcus in the urine. Currently covered on Dapto and feeling better. Some persistent pinching when initiating stream. Trial of pyridium. She has completed 5 days at this point and should be cleared of infection. No further antibiotics needed for this. (3) Pneumonia: Poor historian, no martita coughing or worsening shortness of breath, fevers or chills noted. She is immunosuppressed on chronic prednisone, however. There was a question of aspiration and she was evaluated by speech therapy this admission. She is known to speech therapy services having participated in a video swallow study in January of this year. She did not aspirate but has esophageal dysfunction that is known. There is questionable compliance with diet modifications that were recommended. Giving course of Levaquin at this time to cover empirically for pneumonia. She is clinically improved overall. (4) Lower limb ulcer: POA, painful. Infected with MRSA. Stop dapto and start Bactrim for now- monitor clinical response before putting a stop date on this. May need full 14 day course abx. Will work closely with wound nurse. (5) COPD (chronic obstructive pulmonary disease): Chronic, appears stable. No wheezing on exam. Patient continues to smoke. Smoking cessation advised. Cont Incruse Ellipta. (6) Severe malnutrition: Poor p.o. intake and overall self-care. Nutrition saw patient and is initiating boost breeze twice daily. We will continue to monitor bowel regularity, skin integrity and daily weights. Cont daily thiamine. (7) Seizure disorder: Continue levetiracetam per home medications. (8) Rheumatoid arthritis: On chronic prednisone - will continue (9) Restless leg syndrome: - Continue ropinirole per home medications. (10) Smoking: Nicoderm. Encouraged to quit smoking. (11) DVT prophylaxis: Heparin- patient has been refusing so will stop this now. DNR/DNI Dispo-recommend placement. Awaiting open bed at [facility] which is not available until after the weekend. 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 infected RLE wound, POA, possible pneumonia (active smoker), and UTI. Generally feeling well-no changes this weekend Tolerating PO-trying to gain weight RLE wound is painful but bearable dependent on narcotics and baclofen which are helping Spoke with DIL by phone who states getting help in the home has been difficult from a financial standpoint. Her kids don't drive and neither does the patient. She can't live with family because of space and other work limitations. I discussed assisted living as an option with the patient and she was open to it. Will discuss with case management. Physical Exam Physical Exam: CONSTITUTIONAL: thin, frail, vitals as above, generally NAD EYES: normal conjunctivae, no scleral icterus ENT: external ear and nose normal, MMM NECK: trachea midline RESPIRATORY: Clear to auscultation bilaterally, no wheezing or rales, normal respiratory effort. CARDIOVASCULAR: regular rate and rhythm, S1 and 2 heard without murmurs, gallops or rubs, no JVD, no peripheral edema GASTROINTESTINAL: soft, nontender, nondistended MUSCULOSKELETAL: Generalized weakness, normocephalic head with some ecchymosis seen on the lateral periorbital area-healing well SKIN: warm and dry, multiple prior abrasions, cuts and other sequelae of recent falls present on extremities. RLE wound-2cm with purulent material-covered with tegaderm NEUROLOGIC: CN 2-12 grossly intact, normal cognition, normal speech, no gross focal deficits. PSYCHIATRIC: alert cooperative and oriented to person, place and time. Results & Data Results & Data ([facility]) Vital Signs (Past 12 Hours) Vital Signs Temp Pulse Pulse Resp BP Pulse Ox 05/09/21 16:07 37.1 C 86 18 132/72 92 05/09/21 08:11 36.7 C 66 17 121/67 92 05/09/21 07:30 36.9 C 81 18 112/68 92 Laboratory Results Short CBC 05/09/21 Range/Units 09:21 WBC 6.78 (4.8-10.8) K/uL Hgb 8.8 L (12.0-16.0) g/dL Hct 27.6 L (37-47) % Plt Count 226 (130-400) K/uL [facility] 05/09/21 09:21 Sodium 135 L Potassium 3.9 Chloride 101 Carbon Dioxide 26 BUN 19 H Creatinine 0.78 Glucose 118 H Calcium 8.7 Medications Administered Current Inpatient Medications Acetaminophen (Acetaminophen 325 Mg Tab) 650 mg PO Q4H PRN PRN Reason: pain/fever Stop: 06/01/21 22:14 Last Admin: 05/06/21 13:09 Dose: 650 mg Documented by: Amitriptyline HCl (Amitriptyline Hcl 25 Mg Tab) 25 mg PO HS [facility] Stop: 06/01/21 22:14 Last Admin: 05/08/21 21:05 Dose: 25 mg Documented by: Amlodipine Besylate (Amlodipine Besylate 5 Mg Tab) 5 mg PO QAM [facility] Stop: 06/02/21 08:59 Last Admin: 05/09/21 08:08 Dose: 5 mg Documented by: Atorvastatin Calcium (Atorvastatin 20 Mg Tab) 20 mg PO DAILY [facility] Stop: 06/02/21 08:59 Last Admin: 05/09/21 08:09 Dose: 20 mg Documented by: Baclofen (Baclofen 10 Mg Tab) 10 mg PO TID [facility] Stop: 06/01/21 22:14 Last Admin: 05/09/21 13:58 Dose: 10 mg Documented by: Docusate Sodium (Docusate Sodium 100 Mg Cap) 100 mg PO BID [facility] Stop: 06/01/21 22:14 Last Admin: 05/09/21 08:08 Dose: 100 mg Documented by: Famotidine (Famotidine 20 Mg Tab) 20 mg PO QAM [facility] Stop: 06/02/21 08:59 Last Admin: 05/09/21 08:08 Dose: 20 mg Documented by: Ipratropium Cleghorn (Ipratropium [place] Neb Soln 0.02% 2.5 Ml Vial) 0.5 mg INH Q4H PRN PRN Reason: SOB/WHEEZING Stop: 06/06/21 22:59 Last Admin: 05/07/21 23:06 Dose: 0.5 mg Documented by: Levalbuterol HCl (Levalbuterol 1.25mg/0.5ml Neb) 1.25 mg INH Q4H PRN PRN Reason: SOB/WHEEZING Stop: 06/06/21 22:59 Last Admin: 05/07/21 23:06 Dose: 1.25 mg Documented by: Levetiracetam (Levetiracetam 250 Mg Tab) 250 mg PO BID [facility] Stop: 06/01/21 22:14 Last Admin: 05/09/21 08:09 Dose: 250 mg Documented by: Levofloxacin (Levofloxacin 250 Mg Tablet) 250 mg PO DAILY [facility]; Protocol Stop: 05/10/21 09:01 Last Admin: 05/09/21 08:09 Dose: 250 mg Documented by: Lidocaine (Lidocaine 5% 1 Patch) 1 patch TD DAILY@1900 [facility] Stop: 06/02/21 18:59 Last Admin: 05/08/21 18:08 Dose: 1 patch Documented by: Menthol (Cough Drop (Sugar Free) Nahomi 24 Nahomi/1 Box) 1 nahomi BUCCAL UD PRN PRN Reason: Sore Throat Stop: 06/05/21 22:40 Last Admin: 05/06/21 22:53 Dose: 1 nahomi Documented by: Miscellaneous (Remove Lidoderm Patch) 1 ea N/A DAILY@0700 [facility] Stop: 06/02/21 06:59 Last Admin: 05/09/21 08:08 Dose: 1 ea Documented by: Miscellaneous Information (Levofloxacin Consult Active) 1 ea N/A UD PRN PRN Reason: Consult Stop: 05/10/21 09:01 Multivitamins/Minerals (Cerovite Adv Formula Tab) 1 tab PO DAILY [facility] Stop: 06/02/21 08:59 Last Admin: 05/09/21 08:09 Dose: 1 tab Documented by: Oxycodone HCl (Oxycodone Hcl Ir 5 Mg Tab (Immediate Release)) 2.5 mg PO Q6H PRN PRN Reason: Pain Stop: 05/16/21 19:44 Last Admin: 05/09/21 15:55 Dose: 2.5 mg Documented by: Phenazopyridine HCl (Phenazopyridine Hcl 100 Mg Tab) 100 mg PO TID [facility] Stop: 06/06/21 08:59 Last Admin: 05/09/21 13:58 Dose: 100 mg Documented by: Polyethylene Glycol (Polyethylene (Miralax) 17 Gm Pack) 17 gm PO DAILY PRN PRN Reason: constipation Stop: 06/01/21 22:14 Prednisone (Prednisone 5 Mg Tab) 5 mg PO DAILY [facility] Stop: 06/02/21 08:59 Last Admin: 05/09/21 08:09 Dose: 5 mg Documented by: Ropinirole HCl (Ropinirole Hcl 0.25 Mg Tablet) 0.25 mg PO HS [facility] Stop: 06/01/21 22:14 Last Admin: 05/08/21 21:05 Dose: 0.25 mg Documented by: Thiamine HCl (Thiamine Hcl 100 Mg Tab) 100 mg PO QAM [facility] Stop: 06/03/21 13:29 Last Admin: 05/09/21 08:09 Dose: 100 mg Documented by: Trimethoprim/Sulfamethoxazole (Sulfamethoxazole/Trimethoprim Ds 800/160mg Tab) 1 tab PO BID [facility] Stop: 05/15/21 20:59 Last Admin: 05/09/21 08:09 Dose: 1 tab Documented by: Umeclidinium Cleghorn (Umeclidinium Cleghorn 62.5mcg/Blister 7 Puffs/Inhaler) 1 puffs INH DAILY [facility] Stop: 06/02/21 08:59 Last Admin: 05/09/21 08:10 Dose: 1 puffs Documented by: (1) Lower limb ulcer Laterality: unspecified laterality Non-pressure ulcer stage: unspecified non- pressure ulcer stage Qualified Code(s): L97.909 - Non-pressure chronic ulcer of unspecified part of unspecified lower leg with unspecified severity (2) Rheumatoid arthritis Rheumatoid arthritis location: unspecified site
[2021-05-09] MEDS: LIDOCAINE 5% 1 PATCH TD SCH (18:27)
[2021-05-09] MEDS: AMITRIPTYLINE HCL 25 MG TAB PO SCH (21:50)
[2021-05-09] MEDS: rOPINIRole HCL 0.25 MG TABLET PO SCH (21:52)
[2021-05-10] MEDS: ATORVASTATIN 20 MG TAB PO SCH (08:54)
[2021-05-10] MEDS: SULFAMETHOXAZOLE/TRIMETHOPRIM DS 800/160MG TAB PO SCH (08:55)
[2021-05-10] MEDS: PHENAZOPYRIDINE HCL 100 MG TAB PO SCH ×2 (08:55→14:21)
[2021-05-10] MEDS: levETIRAcetam 250 MG TAB PO SCH (08:55)
[2021-05-10] MEDS: levoFLOXacin 250 MG TABLET PO SCH (08:55)
[2021-05-10] MEDS: CEROVITE ADV FORMULA TAB PO SCH (08:55)
[2021-05-10] MEDS: amLODIPine BESYLATE 5 MG TAB PO SCH (08:56)
[2021-05-10] MEDS: THIAMINE HCL 100 MG TAB PO SCH (08:56)
[2021-05-10] MEDS: predniSONE 5 MG TAB PO SCH (08:56)
[2021-05-10] MEDS: UMECLIDINIUM BROMIDE 62.5MCG/BLISTER 7 PUFFS/INHALER INH SCH (08:56)
[2021-05-10] MEDS: BACLOFEN 10 MG TAB PO SCH ×2 (09:01→14:20)
[2021-05-10] MEDS: FAMOTIDINE 20 MG TAB PO SCH (09:02)
[2021-05-10] MEDS: DOCUSATE SODIUM 100 MG CAP PO SCH (09:02)
--- NOTE | 2021-05-10 15:14 | Discharge Summary ---
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 Of note, pt was recently admitted to this facility 04/24-04/27/21 with fall with resultant compression fracture of spine and asymptomatic hypertensive urgency. Pt was discharged to home with home health services. She reports that she lives alone but that her son stops by every evening to help. Apparently today, the home health PT and pt's caregiver stopped by and found the patient on the floor incontinent of stool with the water in the bathroom running and spilling onto the floor. It was unclear how long that she had been on the floor. They were initially about to get her onto the chair and called EMS but she apparently slid back onto the floor. In the ED, pt was initially only oriented to self. However, when we saw pt for admission, she was oriented x 3 although it is unclear how reliable of a historian she is. She does report multiple falls at home. She is unsure if she has been taking her medications correctly. She reports pain all over but especially in her shoulders and back. Admission Exam Per Admitting Provider Constitutional: + cachectic; no acute distress Eyes: right eye cloudy, left pupil reactive to light Neck: trachea midline Respiratory: no respiratory distress Auscultation: lungs clear to auscultation bilaterally; no rales, no rhonchi and no wheezes Cardiovascular: Rate/Rhythm: regular rate and regular rhythm Heart Sounds: no gallop, no murmur and no cardiac rub Gastrointestinal (Abdomen): Inspection/Auscultation: normal bowel sounds; abdomen not distended Percussion/Palpation: abdomen soft; abdomen nontender Musculoskeletal: Head/Neck/Chest: neck supple tenderness to touch over bilateral LE, bilateral shoulders Skin: multiple areas of ecchymosis on bilateral UE and LE.Sacral pressure ulcer ~state 2 Neurologic: moves all extremities Psychiatric: Orientation: alert and oriented x 3 Principal Diagnosis Recurrent falls UTI Pneumonia Infected Lower limb ulcer MRSA+ severe malnutrition smoking 1.7cm pulmonary nodule Discharge Exam Constitutional: + cachectic; no acute distress Eyes: right eye cloudy, left pupil reactive to light Neck: trachea midline Respiratory: no respiratory distress Auscultation: lungs clear to auscultation bilaterally; no rales, no rhonchi and no wheezes Cardiovascular: Rate/Rhythm: regular rate and regular rhythm Heart Sounds: no gallop, no murmur and no cardiac rub Gastrointestinal (Abdomen): Inspection/Auscultation: normal bowel sounds; abdomen not distended Percussion/Palpation: abdomen soft; abdomen nontender Musculoskeletal: generalized weakness Skin: multiple areas of ecchymosis on bilateral UE and LE-resolving. small area of ecchymosis on lateral infraorbital rim of right eye-resolving. RLE ulceration with resolved surrounding erythema and improved te Neurologic: moves all extremities equally Psychiatric: Orientation: alert and oriented x 3 Discharge Data Allergies Allergy/AdvReac Type Severity Reaction Status Date / Time pollen extracts Allergy Mild SEASONAL-ITCHY Verified 05/02/21 15:40 EYES,RUNNY NOSE Consultations 05/02/21 17:16 ED Decision to Admit Stat Ordered Studies Laboratory Results WBC 6.78 K/uL (4.8-10.8) 05/09/21 09:21 RBC 2.87 M/uL (4.2-5.4) L 05/09/21 09:21 Hgb 8.8 g/dL (12.0-16.0) L 05/09/21 09:21 Hct 27.6 % (37-47) L 05/09/21 09:21 MCV 96.2 fL (80-100) 05/09/21 09:21 MCH 30.7 pg (25-34) 05/09/21 09:21 MCHC 31.9 g/dL (32-36) L 05/09/21 09:21 RDW Std Deviation 63.5 fL (36.4-46.3) H 05/09/21 09:21 RDW Coeff of Mandeep 18.1 % (11.5-14.5) H 05/09/21 09:21 Plt Count 226 K/uL (130-400) 05/09/21 09:21 MPV 8.5 fL (7.4-10.4) 05/09/21 09:21 Immature Gran % (Auto) 0.4 % 05/02/21 15:13 Neut % (Auto) 79.2 % 05/02/21 15:13 Lymph % (Auto) 10.0 % 05/02/21 15:13 [place] % (Auto) 6.5 % 05/02/21 15:13 Eos % (Auto) 3.7 % 05/02/21 15:13 Baso % (Auto) 0.2 % 05/02/21 15:13 Neut # (Auto) 4.27 K/uL (1.4-6.5) 05/02/21 15:13 Lymph # (Auto) 0.54 K/uL (1.2-3.4) L 05/02/21 15:13 [place] # (Auto) 0.35 K/uL (0.11-0.59) 05/02/21 15:13 Eos # (Auto) 0.20 K/uL (0-0.5) 05/02/21 15:13 Baso # (Auto) 0.01 K/uL (0-0.2) 05/02/21 15:13 Immature Gran # (Auto) 0.02 K/uL (0.00-0.02) 05/02/21 15:13 PT 10.9 Seconds (9.0-12.0) 05/02/21 15:13 INR 1.1 (0.9-1.1) 05/02/21 15:13 ABG pH 7.46 (7.35-7.45) H 05/02/21 15:13 ABG pCO2 39 mmHg (35-46) 05/02/21 15:13 ABG pO2 59 mmHg (80-95) L 05/02/21 15:13 ABG HCO3 27 mmol/L (19-24) H 05/02/21 15:13 ABG O2 Saturation 91.7 % (90-95) 05/02/21 15:13 ABG Base Excess 3.0 mEq/L (-9-1.8) H 05/02/21 15:13 Alex Test Pos (Pos) 05/02/21 15:13 Barometric Pressure 737.2 mm/Hg 05/02/21 15:13 Oxygen Given ROOM AIR 05/02/21 15:13 Sodium 135 mmol/L (136-145) L 05/09/21 09:21 Potassium 3.9 mmol/L (3.5-5.1) 05/09/21 09:21 Chloride 101 mmol/L (98-107) 05/09/21 09:21 Carbon Dioxide 26 mmol/L (21-32) 05/09/21 09:21 Anion Gap 7.0 (3-11) 05/09/21 09:21 BUN 19 mg/dl (7-18) H 05/09/21 09:21 Creatinine 0.78 mg/dl (0.6-1.2) 05/09/21 09:21 Est Cr Clr Drug Dosing 31.3 ml/min 05/09/21 09:21 Est GFR ( Amer) 82.6 ml/min 05/09/21 09:21 Est GFR (Non-Af Amer) 71.3 ml/min 05/09/21 09:21 BUN/Creatinine Ratio 24.5 (10-20) H 05/09/21 09:21 Glucose 118 mg/dl (70-99) H 05/09/21 09:21 Lactate 0.5 mmol/L (0.4-2.0) 05/02/21 15:13 Calcium 8.7 mg/dl (8.5-10.1) 05/09/21 09:21 Phosphorus 3.8 mg/dl (2.5-4.9) 05/09/21 09:21 Magnesium 1.8 mg/dl (1.8-2.4) 05/09/21 09:21 Iron 40 mcg/dl (35-150) 05/06/21 11:07 TIBC 292 mcg/dl (250-450) 05/06/21 11:07 Ferritin 40.6 ng/ml (8-388) 05/06/21 11:07 Total Bilirubin 0.5 mg/dl (0.2-1) 05/02/21 15:13 AST 19 U/L (15-37) 05/02/21 15:13 ALT 13 U/L (12-78) 05/02/21 15:13 Alkaline Phosphatase 109 U/L (45-117) 05/02/21 15:13 Total Creatine Kinase 89 U/L (26-192) 05/02/21 15:13 Troponin I < 0.015 ng/ml (0-0.045) 05/02/21 15:13 Total Protein 6.6 gm/dl (6.4-8.2) 05/02/21 15:13 Albumin 3.0 gm/dl (3.4-5.0) L 05/02/21 15:13 Globulin 3.6 gm/dl (2.5-4.0) 05/02/21 15:13 Albumin/Globulin Ratio 0.8 (0.9-2) L 05/02/21 15:13 TSH 0.740 uIu/ml (0.300-4.500) 05/02/21 15:13 Urine Color Yellow 05/03/21 11:08 Urine Appearance Cloudy (Clear) A 05/03/21 11:08 Urine pH 7.0 (4.5-7.5) 05/03/21 11:08 Ur Specific [place] 1.014 (1.000-1.030) 05/03/21 11:08 Urine Protein 2+ (Negative) H 05/03/21 11:08 Urine Glucose (UA) Negative (Negative) 05/03/21 11:08 Urine Ketones 2+ (Negative) H 05/03/21 11:08 Urine Blood 2+ (Negative) H 05/03/21 11:08 Urine Nitrite Negative (Negative) 05/03/21 11:08 Urine Bilirubin Negative (Negative) 05/03/21 11:08 Urine Urobilinogen Negative (Negative) 05/03/21 11:08 Ur Leukocyte Esterase 3+ (Negative) H 05/03/21 11:08 Urine WBC (Auto) >30 /hpf (0-5) H 05/03/21 11:08 Urine RBC (Auto) >30 /hpf (0-4) H 05/03/21 11:08 U Hyaline Cast (Auto) 5-10 /lpf (0-5) H 05/03/21 11:08 U Epithel Cells (Auto) 5-10 /lpf (0-5) H 05/03/21 11:08 Urine Bacteria (Auto) Negative (Negative) 05/03/21 11:08 Urine Yeast Not Reportable 05/03/21 11:08 COVID-19 Eval Order Covid19 IDNow [facility] 05/10/21 14:27 SARS-CoV-2 (PCR) NEGATIVE (Negative) 05/02/21 15:11 SARS-CoV-2, RNA, NAAT NEGATIVE (NEGATIVE) 05/10/21 14:27 Bld Cult Staph aureus PCR Negative (Negative) 05/02/21 15:16 Blood Culture MRSA PCR Negative (Negative) 05/02/21 15:16 Impressions Abdomen/Pelvis CT 05/02/21 14:34 CT SCAN OF THE ABDOMEN AND PELVIS WITHOUT IV CONTRAST CLINICAL HISTORY: Fall. COMPARISON STUDY: Abdominal CT dated 04/24/2021. TECHNIQUE: CT scan of the abdomen and pelvis is performed from the lung bases to the proximal femora. Images are reviewed in the axial, sagittal, and coronal planes. IV contrast was not administered for this examination. Note that the examination was performed in significantly suboptimal fashion without IV contrast. There is motion artifact, as well as streak artifact from the arms which could not be elevated above the abdomen. A dose lowering technique was utilized adhering to the principles of ALARA. FINDINGS: Lung bases: The heart is mildly enlarged and without pericardial effusion. The coronary arteries are densely calcified. There is diminished attenuation of the cardiac blood pool as compared to the myocardium suggesting anemia. A small hiatal hernia is noted. Advanced emphysematous change is noted at the lung bases. There are dependent airspace opacities. No pleural effusion or basilar pneumothorax is identified. Liver: The unenhanced liver is normal in size, contour, and attenuation. There is no intrahepatic biliary ductal dilatation. Gallbladder: Unremarkable. Spleen: Normal in size and attenuation. Pancreas: The unenhanced pancreas is atrophic and grossly unremarkable. Adrenal glands: Unremarkable. Kidneys: The unenhanced kidneys are atrophic and without hydronephrosis. Question a punctate nonobstructing right renal calculus. There is no evidence of contour deforming renal mass lesion. Abdominal vasculature: The abdominal aorta is normal in course and caliber noting advanced atherosclerotic calcification. Bowel: There is rectosigmoid fecal retention and moderate to severe constipation. No bowel obstruction is seen. Discharge that likely resents a normal appendix is seen anterior to the sacrum on image #[id number]. Peritoneum: There is no intraperitoneal free air or abdominal ascites. Lymphadenopathy: None. Pelvic viscera: The bladder is markedly distended end appears thick walled. The uterus and adnexa are normal as visualized. Skeletal structures: The skeletal structures are osteopenic. There is advanced lumbosacral spondylosis and scoliosis. Compression deformities of T11, T12, L1, and L2 are similar to the 04/24/2021 examination. The T11 and L2 fractures appear subacute. No lytic or blastic lesions are seen. There are healed left pubic ring fractures. Postoperative change is suggested in the left proximal femur. There is chronic posttraumatic deformity of the sacrum. Postoperative change and deformity is noted in the right proximal femur. Again seen are numerous age indeterminant and likely subacute bilateral rib fractures. IMPRESSION: 1. Suboptimal examination without IV contrast. The examination is also significantly compromised by streak and motion. 2. There is no evidence of solid organ injury in the abdomen or pelvis on this unenhanced and significantly compromised examination. 3. Cardiomegaly and emphysema. 4. Dependent airspace opacities likely represent scarring/atelectasis. Correlate clinically for evidence of a superimposed infectious/inflammatory pneumonitis. 5. Thoracolumbar compression deformities are similar in appearance to the 04/24/2021 examination. The T11 and L2 fractures appear subacute. Correlate for point tenderness. 6. Rectosigmoid fecal retention and moderate to severe constipation. 7. The bladder is markedly distended and appears thick walled. 8. Additional chronic findings as above. ACT 112: Negative or not required by law. Electronically signed by: Zeb Noble M.D. 05/02/2021 4:[address] 05/02/21 14:34 CT SCAN OF THE CERVICAL SPINE CLINICAL HISTORY: Fall. COMPARISON STUDY: CT of the cervical spine dated 04/24/2021. TECHNIQUE: CT scan of the cervical spine is performed from the skull base to the upper thoracic spine. Images are reviewed in the axial, sagittal, and coronal planes. IV contrast was not administered for this examination. A dose lowering technique was utilized adhering to the principles of ALARA. FINDINGS: Skeletal structures: The skeletal structures are osteopenic. There is no evidence of fracture or subluxation involving the cervical spine. Vertebral body height is maintained. There is 3 mm anterolisthesis at C3-C4. Minimal anterolisthesis is also noted at C4-C5. Alignment is otherwise preserved. Anterior osteophytes are seen throughout. The odontoid process and lateral masses are intact. The atlantoaxial articulation is preserved noting advanced productive degenerative change. The spinous processes appear intact. There is moderate to advanced multilevel cervical spondylosis. Uncovertebral and facet arthropathy contribute to neural foraminal stenosis at most levels. Intervertebral discs: There is moderate to advanced disc space narrowing at all cervical levels between C4-C5 and C6-C7. Mild narrowing is seen at the remaining cervical levels. Central canal: Posterior discussed by complexes at C5-C6 and C6-C7 may contribute to mild acquired compromise of the central canal. Soft tissues: The prevertebral and paraspinous soft tissues are within normal limits. There is advanced atherosclerotic calcification of the carotid bulbs. Calcified sialoliths are noted in the parotid glands. Calvarium: The visualized calvarium at the skull base appears intact. Brain parenchyma: Partially visualized brain parenchyma at the skull base is within normal limits noting age-related involutional change. Sinuses and mastoids: The visualized paranasal sinuses are clear. The mastoid air cells are well pneumatized. Lung apices: Clear as visualized. IMPRESSION: 1. There is no evidence of fracture or subluxation involving the cervical spine. 2. Osteopenia and spondylotic change as above. ACT 112: Negative or not required by law. Electronically signed by: Zeb Noble M.D. 05/02/2021 4:[address] 05/02/21 14:34 CT chest diagnostic wo con CT DOSE: HISTORY: fall TECHNIQUE: Multiaxial CT images of the chest were performed without contrast. A dose lowering technique was utilized adhering to the principles of ALARA. COMPARISON: Chest CT 04/24/2021. FINDINGS: Subacute/healing inferior endplate T6 compression fracture and the T11 burst fracture are again noted. The T11 fracture demonstrates up to 4 mm of retropulsion with moderate central canal narrowing at this level. This remains unchanged. Healing nondisplaced right fifth through seventh transverse process fractures are noted. Healing left posterior 11th rib fracture is again noted. There are multiple additional healing left-sided rib fractures, unchanged. No new fractures identified within the chest. Heart is normal in size. No pleural or pericardial effusions. Normal caliber esophagus. Moderate calcified plaque within the normal caliber thoracic aorta. Stable prominent mediastinal lymph nodes. Emphysema. No pneumothorax. Mild respiratory motion artifact. Bibasilar interstitial thickening persists. Partial opacification of the bilateral bronchi which have progressed. This could be due to recent aspiration. Patchy densities within the lower lobes posteriorly have slightly progressed. This could represent atelectasis or pneumonia. Stable 1.7 cm right lower lobe nodule on image 161. IMPRESSION: 1. Multiple subacute/healing fractures within the chest as described above. This is similar to the prior study. No new/acute fractures identified. 2. Slight progression of the partial opacification of the bilateral lower lobe bronchi and patchy densities within the lower lobes posteriorly. This may represent an aspiration pneumonia. 3. Redemonstration of the 1.7 cm right lower lobe nodule. A neoplastic process remains the diagnosis of exclusion. 4. Emphysema. 5. Please refer to same day abdomen and pelvis CT for further evaluation of the abdominal structures. ACT 112: Negative or not required by law. Electronically signed by: Fadi Shell M.D. 05/02/2021 4:54 PM Chest X-Ray 05/02/21 14:34 XR chest 1V portable CLINICAL HISTORY: weakness COMPARISON STUDY: 03/13/2021 FINDINGS: The cardiac and mediastinal contours remain stable. There is a 19 mm right perihilar nodule. There is pulmonary emphysema. There is mild diffuse interstitial thickening, mild congestive failure versus interstitial infectious/inflammatory process. The bones are osteopenic[ IMPRESSION: 1. Nonspecific 19 mm right perihilar nodule 2. Interstitial thickening, mild pulmonary vascular congestion versus interstitial infectious/inflammatory process 3. Emphysema ACT 112: Negative or not required by law. Electronically signed by: Stefano Colon M.D. 05/02/2021 3:07 PM Forearm X-Ray 05/02/21 14:34 LEFT FOREARM 2 VIEWS CLINICAL HISTORY: Fall with left arm injury. FINDINGS: AP and lateral views of the left forearm are obtained. No prior studies are available for comparison at the time of dictation. The skeletal structures are osteopenic. There is no radiographic evidence of left forearm fracture. The elbow and wrist joints are grossly maintained. Mild soft tissue edema is seen in the distal forearm. IMPRESSION: Mild soft tissue swelling with no radiographic evidence of left forearm fracture. Electronically signed by: Zeb Noble M.D. 05/02/2021 3:[address] 05/02/21 14:34 CT SCAN OF THE BRAIN WITHOUT IV CONTRAST CLINICAL HISTORY: Fall. Change in mental status. COMPARISON STUDY: CT of the brain dated 04/24/2021. TECHNIQUE: Unenhanced axial CT scan of the brain is performed from the vertex to the skull base. A dose lowering technique was utilized adhering to the principles of ALARA. The examination is degraded by motion artifact. FINDINGS: Brain parenchyma: There are age-related involutional changes noting moderate subcortical and periventricular microangiopathic change. There is no hemorrhage, mass effect, or evidence of acute territorial ischemia by CT criteria. Colon- white matter differentiation is preserved. No extra-axial fluid collection is seen. Ventricles, sulci, cisterns: Prominent secondary to involutional change. Intracranial vasculature: There is atherosclerotic calcification of the cavernous carotid and vertebral arteries. Calvarium: The skeletal structures are osteopenic. No depressed calvarial fracture is identified. Sinuses and mastoids: The paranasal sinuses are clear. The mastoid air cells are well pneumatized. Orbits: The bony orbits are grossly intact. There are bilateral ocular lens implants. Displacement of the left ocular lens is similar to previous. IMPRESSION: There is no hemorrhage, mass effect, or evidence of acute territorial ischemia by CT criteria. ACT 112: Negative or not required by law. Electronically signed by: Zeb Noble M.D. 05/02/2021 4:[address] 05/02/21 15:[address] DOSE: 1465.06 mGy.cm HISTORY: fall TECHNIQUE: Multiaxial CT images of the maxillofacial region were performed and reformatted in the coronal plane without the use of contrast. A dose lowering technique was utilized adhering to the principles of ALARA. COMPARISON: CT facial bones 04/24/2021. FINDINGS: The visualized cervical spine, skull base, pterygoid plates, nasal bones, lamina papyracea, orbital floors, mandible, and zygomatic arches are intact. No acute fractures. Mild nasal bone deformities are likely chronic. Mild motion artifact within the mandible. Left nasal septal deviation. The globes and retrobulbar fat are intact. Mild right supraorbital soft tissue swelling is again noted. IMPRESSION: No acute fractures within the maxillofacial region. ACT 112: Negative or not required by law. Electronically signed by: Fadi Shell M.D. 05/02/2021 4:45 PM Hospital Course (1) Recurrent falls: Patient lives alone, is physically deconditioned with multiple recent hospitalizations, and is on narcotics and muscle relaxers all of which are likely contributing to her recurrent falls. She does not appear capable to take care of herself. SNF placement is strongly recommended. No beds at [facility] until after holiday weekend. Was able to transfer successfully on . Long- term solution may be assisted living, which patient is open to. Discussed with case management prior to discharge. (2) UTI (urinary tract infection): Vancomycin sensitive Enterococcus in the urine. Completed antibiotic course and received intermittent pyridium, to help with symptoms. She has completed 5 days at this point and should be cleared of infection. No further antibiotics needed for this. (3) Pneumonia: Poor historian, no martita coughing or worsening shortness of breath, fevers or chills noted. She is immunosuppressed on chronic prednisone, however. There was a question of aspiration and she was evaluated by speech therapy this admission. She is known to speech therapy services having participated in a video swallow study in January of this year. She did not aspirate but has esophageal dysfunction that is known. There is questionable compliance with diet modifications that were recommended. Given course of Levaquin at this time to cover empirically for pneumonia. She was clinically improved prior to discharge, oxygenating well on room air. Ambulation was with assistance and not at her reported baseline. (4) Lower limb ulcer: POA, painful. Infected with MRSA. Received daptomycin followed by Bactrim. Improved. (5) COPD (chronic obstructive pulmonary disease): Chronic, appears stable. No wheezing on exam. Patient continues to smoke. Smoking cessation advised. Cont Incruse Ellipta. (6) Severe malnutrition: Poor p.o. intake and overall self-care. Nutrition saw patient and is initiating boost breeze twice daily. We will continue to monitor bowel regularity, skin integrity and daily weights. Daily thiamine given (7) Seizure disorder: Continue levetiracetam per home medications. (8) Rheumatoid arthritis: On chronic prednisone - will continue (9) Restless leg syndrome: - Continue ropinirole per home medications. (10) Smoking: Nicoderm. Encouraged to quit smoking. Total Time Total Time Spent Total Time Spent (In Minutes): 60 Total Time Includes: Examination of the Patient, Discharge Planning, Medication Reconciliation and Communication With Other Providers Discharge Plan Discharge Items Patient Disposition: Transfer [facility] Fac Reason For Visit: FALLS, WEAKNESS Discharge Diagnosis: Recurrent falls UTI Pneumonia Infected Lower limb ulcer MRSA+ severe malnutrition smoking 1.7cm pulmonary nodule Condition on Discharge: Good Activity: Resume your previous activity Non-emergency contact: Primary Care Provider Call non-emergency contact if: you have any medication questions, your symptoms worsen, your pain is worsening, your wound has increased redness, your wound has increased drainage and your wound pain has increased Follow-up/Referrals: Zakia Galvez DO [Primary Care Provider] - Diet: Regular Diet Texture: Dental soft (bite-sized) Diet Comment: minced and moist Addtl Attending Provider Instructions: Please take all medications as instructed on discharge list below. A repeat chest xray is recommended in 4 weeks to ensure complete resolution of your pneumonia. This may be ordered by your primary care provider. A followup with your PCP is recommended in 1 week to ensure you are still doing well after leaving the hospital. A followup with the wound care clinic is recommended for continued care of your right leg wound, please see wound instructions on how to set up that appointment below. Smoking cessation is strongly recommended. You have an enlarged lung nodule that warrants follow-up with your PCP and may need further investigation. Please discuss this with your physician at follow- up. It was a pleasure taking care of you! Please call if you have any questions or problems. You can reach a [facility] hospitalist on duty at [facility] 24 hours a day by calling [phone]. Take care of yourself. Brenda Mallory DO [facility] Hospitalist Pending Studies at Discharge: No Stand-Alone Forms: My [facility] Skilled Items Patient informed of condition?: Yes DNR: Yes Discharge Level of Care: Skilled Communicable Disease: Yes Discharge Prognosis: Stable Lines: None Urinary Catheter: No Medications and DC Order Prescriptions: Continued Spiriva Respimat 2.5 mcg/actuation mist 2 puff INHALATION DAILY RF: 0 prednisone 5 mg tablet 5 mg PO DAILY RF: 0 levetiracetam 250 mg tablet 250 mg PO Q12H RF: 0 famotidine 20 mg tablet 20 mg PO QAM RF: 0 polyethylene glycol 3350 [Miralax] 17 gram Powder In Packet 17 g PO DAILY PRN (Reason: constipation) Qty: 14 RF: 0 atorvastatin 20 mg tablet 20 mg PO DAILY RF: 0 amlodipine 5 mg tablet 5 mg PO QAM RF: 0 lidocaine 5 % Adhesive Patch,Medicated 1 patch transdermal DAILY@1900 Qty: 30 RF: 0 docusate sodium [Stool Softener] 100 mg capsule 100 mg PO BID RF: 0 Cerovite Senior Tablet 1 tab PO DAILY RF: 0 amitriptyline 25 mg tablet 25 mg PO HS Qty: 7 RF: 0 ropinirole 0.25 mg tablet 0.25 mg PO HS Qty: 7 RF: 0 baclofen 10 mg tablet 10 mg PO TID Qty: 20 RF: 0 oxycodone 5 mg tablet 5 mg PO Q8H PRN (Reason: pain) Qty: 10 RF: 0 Discharge Orders: Discharge Order (Routine); Ordered 05/10/21 Ordered By: Brenda Mallory Admission Data Admit Date/Time: 05/02/21 17:56 Attending Provider: Charissa Odell Admit Provider: Charissa Odell Primary Care Provider: Zakia Galvez Other Providers: Charissa Odell ; Yuri Douglass ; Brenda Mallory Other Interventions: Discharge Summary Assessment (RN) Last Done: 05/10/21 14:34
[2021-05-10] MEDS: ACETAMINOPHEN 325 MG TAB PO PRN (15:54)
--- NOTE | 2021-05-19 11:14 | Coding Query ---
CODING QUERY To promote full compliance with coding requirements relating to patient care, provider participation is requested in all cases of hospital librarian uncertainty. Please assist us with the question(s) below: Coding Question(s): Per progress note 05/04, patient "was confused, possibly related to a toxic encephalpathy versus metabolic encephalopathy from infection." This doesn't make the discharge summary. Please clarify below: ( ) (possibly) Toxic Encephalopathy only ( ) (possibly) Metabolic Encephalopathy only ( ) Patient with (possibly) both conditions ( ) Both conditions Ruled Out (x ) Other Please Explain: I didn't see her confused, and was using those terms to put together what was possibly happening during admission. I think it was possible she had either condition, but the better person to query would be the physician who actually observed the confusion, which is Dr. Odell. As I didn't have an encephalopathic patient on my hands, I didn't continue to document that in the record. sms Thank you Nilo Gaytan Principal Diagnosis: "that condition established after study, to be chiefly responsible for occasioning the admission of the patient to the hospital for care." Co-Existing Principal Diagnosis: "when two or more diagnoses equally meet the criteria for principal diagnosis as determined by the circumstances of admission, diagnostic work up, and/or therapy provided, and the Alphabetic Index, Tabular List, or another coding guideline does not provide sequencing direction, any one of the diagnoses may be sequenced first." "When the physician has documented what appears to be a current diagnosis in the body of the record, but has not included the diagnosis in the final diagnostic statement, the physician should be asked whether the diagnosis should be added." ([facility] 2 QTR90. p3-4) ROBBY
--- NOTE | 2021-05-24 11:40 | Coding Query ---
CODING QUERY To promote full compliance with coding requirements relating to patient care, provider participation is requested in all cases of hard tile setter uncertainty. Please assist us with the question(s) below: Coding Question(s): Per 05/04 progress note documentation, patient, "was confused possibly related to a toxic encephalopathy versus metabolic encephalopathy from infection." Per Dr. Mallory, it would be better to query you for this due to you actually observing the patient's confusion. Please clarify below: ( ) (possibly) Toxic Encephalopathy only ( ) (possibly) Metabolic Encephalopathy only ( ) Patient with (possibly) both conditions ( ) Both conditions Ruled Out (+ ) Other Please Explain: I did not see the patient to be confused during my examination. The EMS note documented that and none of my progress note did not mention about confusion. I can not put that in my note. Thank you Nilo Gaytan Principal Diagnosis: "that condition established after study, to be chiefly responsible for occasioning the admission of the patient to the hospital for care." Co-Existing Principal Diagnosis: "when two or more diagnoses equally meet the criteria for principal diagnosis as determined by the circumstances of admission, diagnostic work up, and/or therapy provided, and the Alphabetic Index, Tabular List, or another coding guideline does not provide sequencing direction, any one of the diagnoses may be sequenced first." "When the physician has documented what appears to be a current diagnosis in the body of the record, but has not included the diagnosis in the final diagnostic statement, the physician should be asked whether the diagnosis should be added." ([facility] 2 QTR90. p3-4) ROBBY
== END 2021-05-10 16:18 | DRG 91 ==
LOC: ED 13:37 → 2W 17:56 → SUATTDRO 17:56 → 2W 20:47 → 3W 05-04 18:04